=== PATIENT | female | born 1950 | race Caucasian/White ===

== ENCOUNTER → 2017-08-24 16:52 | Outpatient (CLI) | payer BC, SELFPAY ==
--- NOTE | 2017-08-24 16:58 | RAD_ITS ---
STUDY: X-RAY CHEST REASON FOR EXAM: Female, 66 years old. Fever and cough. Evaluate for pneumonia. TECHNIQUE: Frontal and lateral views of the chest. COMPARISON: April 15, 2017 FINDINGS: A left internal jugular catheter is stable with the tip projected into the mid SVC. The lungs are markedly hyperexpanded compatible with COPD, and unchanged. There is linear scarring with retraction in both apices unchanged. There is no demonstrated pleural abnormality. Normal size heart. Normal mediastinum and magda. Normal visualized pulmonary arteries. Normal visualized aortic arch and descending thoracic aorta. Normal visualized thoracic spine. Normal visualized ribs, clavicles, and shoulders. There is no demonstrated abnormality of the visualized soft tissue structures of the upper abdomen. RAD/Chest PA and Lateral IMPRESSION: Stable findings of COPD with no new or acute pathology. Electronically Signed: Compa Cunha MD at 17:53 EST , Service support ,
== END ==
PROVIDERS: Family Provider Family Medicine; PCP Family Medicine; Visit Provider Family Medicine
DX: J18.9 Pneumonia, unspecified organism (principal); J44.1 Chronic obstructive pulmonary disease with (acute) exacerbation; R09.02 Hypoxemia
CPT/HCPCS: 71046

== ENCOUNTER 2017-11-15 08:11 | Inpatient (IN) | payer BC, SELFPAY ==
[2017-11-15] VITALS (17 sets, daily range): BP systolic 97–137; BP diastolic 53–86; PULSE 67–105; RESP 13–25; TEMP 36.6–36.7; O2SAT 93–100; BMI 16.2; BMI 14.7; BMI 14.6
--- NOTE | 2017-11-15 08:19 | RAD_ITS ---
STUDY: X-RAY CHEST REASON FOR EXAM: Female, 67 years old. Shortness of breath, cough, history of COPD. TECHNIQUE: Single AP portable view of the chest. Patient is mildly rotated. COMPARISON: 08/24/2017 FINDINGS: Left internal jugular catheter is stable with the tip in the mid SVC. There is hyperinflation of the lungs consistent with chronic obstructive lung disease (COPD). There is a large size left pneumothorax demonstrated with volume loss of underlying left lung. There is no pleural effusion. Normal size heart. Normal mediastinum and magda. Normal visualized pulmonary arteries. Normal visualized aortic arch and descending thoracic aorta. There is demineralization of the osseous structures. There is no acute abnormality of the visualized ribs, clavicles, and shoulders. There is no demonstrated abnormality of the visualized soft tissue structures of the upper abdomen. RAD/Chest 1 View (Portable) IMPRESSION: 1. Large-size left pneumothorax demonstrated with minimal shift of mediastinum to the right side, likely an early tension pneumothorax. 2. COPD changes. N.B. : The above information has been verbally conveyed by Guerda Britton MD to Katlin Hsu on 11/15/2017 09:12:54 (ET). Electronically Signed: Guerda Britton MD at 9:14 EDT Tel , Service support , N.B. : The above information has been verbally conveyed by Guerda Britton MD to Katlin Hsu on 11/15/2017 09:12:54 (ET).
--- NOTE | 2017-11-15 08:19 | EKG12_ITS ---
Test Reason : SOB Blood Pressure : / mmHG Vent. Rate : 070 BPM Atrial Rate : 070 BPM P-R Int : 144 ms QRS Dur : 080 ms QT Int : 396 ms P-R-T Axes : 079 077 075 degrees QTc Int : 427 ms Normal sinus rhythm with sinus arrhythmia Poor R wave progression Nonspecific T wave abnormality Confirmed by BENNY ELIAS, NIA ([id number]), video tape editor JEANNE VALDEZ ([id number]) on 11/18/2017 2:42:29 PM Referred By: Deshawn Torrez Confirmed By:NIA ZAPATA MD
[2017-11-15] MEDS: Albuterol 2.5 MG/3 ML VIAL.NEB. INHALATION ×2 (08:23)
[2017-11-15] MEDS: Ipratropium/Albuterol Sulfate 3 ML AMPUL.NEB INHALATION ×3 (08:23→19:57)
--- NOTE | 2017-11-15 08:23 | ED.VISSUMM ---
- ER Visit Summary Date of Service: 11/15/17 Chief Complaint: Shortness of breath and cough History of Present Illness: The patient is a 67 F with a history of COPD. She is not on home oxygen but does use nebulizer. Patient reports increasing shortness of breath with moist cough since yesterday. She believes her shortness of breath was worsened by the warm, humid weather. Patient states last evening she had pain to her left shoulder and arm but denies pain currently. She has not noted fever. Physical Examination: Blood pressure is 130/80, temperature 98, heart rate 99, respiratory rate 20, pulse ox 93% on room air. Patient sitting upright in bed. She is in no distress and speaking full sentences, but does appear uncomfortable. Heart is regular rate and rhythm. Lung sounds are diminished throughout. Abdomen is soft nontender. Lower exam examination reveals no calf tenderness or edema. Test Results: EKG is sinus at 70 with no sign of acute ischemia. CBC and chemistry studies normal. Troponin is less than 0.015. Portable chest x-ray reveals left-sided pneumothorax with early tension. Emergency Department Course and Treatment: Patient was given Solu-Medrol 80 mg IV along with aerosols. As soon as x-ray was visualized by myself patient was consented for left-sided chest tube placement and procedural sedation. 2 cc 1% lidocaine were infused to the left chest wall. A pneumo dart was placed without difficulty. Was secured in place. Vital signs remained stable throughout. She did not require any IV sedation. Repeat chest x-ray reviewed by myself at bedside reveals resolution of pneumothorax. Patient was discussed with Dr. Berry as well as Dr. Thomas. Treatment Plan: [] Disposition: Admit Impression: Left pneumothorax status post pneumo dart placement This note was generated with [employer] dictation software. It may contain incorrect words, spelling, and punctuation that were not noted in review of the chart prior to signing ED Disposition - Plan for ED Patient: Chief Complaint: Shortness of Breath Referrals: Deshawn Torrez MD [Primary Care Provider] -
[2017-11-15] MEDS: MethylPREDNISolone 125 MG/2 ML Vial 80 MG IV (08:41)
[2017-11-15 08:42] LABS: Absolute Lymphocyte Count 2.18 X10^3/ul (0.83-4.51); Absolute Neutrophil Count 5.6 X10^3/uL (2.0-7.7); Basophil# 0.07 X10^3/uL; Basophil% 0.8 % (0-1); Eosinophil# 0.12 X10^3/uL; Eosinophils% 1.4 % (0-5); Hematocrit 43.8 % (37-47); Hemoglobin 14.2 g/dl (12.0-15.0); Lymphocyte # 2.18 X10^3/ul (4.0); Lymphocyte % 25.9 % (19-41); Mean Corp Hgb Conc 32.4 g/gl (32-36); Mean Corpuscular Hgb 29.8 pg (27.0-32.0); Mean Platelet Vol. 9.1 fl (6.2-12.0); Monocyte# 0.39 X10^3/uL; Monocyte% 4.6 % (0-10); Neutrophil # 5.64 X10^3/uL (2.7-7.7); Neutrophil % 67.2 % (47-70); Platelet Count 217 K/mm3 (150-450); RBC Distribution Width CV 13.7 % (11.6-14.6); RBC Distribution Width SD 45.9 fl (35.1-43.9); Red Blood Count 4.76 M/mm3 (4.2-5.4); White Blood Count 8.4 K/mm3 (4.4-11.0)
[2017-11-15 08:48] LABS: POSITIVE COUNT NO; POSITIVE DIFFERENTIAL NO; POSITIVE MORPHOLOGY NO
[2017-11-15 09:00] LABS: Anion Gap 4 (5-15); BUN 17 mg/dL (7-18); BUN/Creat Ratio 19.9 RATIO (10-20); Calcium,Total 9.2 mg/dL (8.5-10.1); Chloride 104 mmol/L (98-107); Creatinine, Serum 0.86 mg/dL (0.55-1.02); EST Glomerular Filtration Rate 71 mL/min (>60); Est Glom Filt Rate - Afr Amer 86 mL/min (>60); Estimated Creatinine Clearance 44.36 ml/min; Glucose 110 mg/dL (74-106); Potassium 4.1 mmol/L (3.5-5.1); Sodium Level 138 mmol/L (136-145)
--- NOTE | 2017-11-15 09:27 | ED.RN ---
LIDOCAINE INJECTED INTO SITE BY DR HAQ
--- NOTE | 2017-11-15 09:33 | ED.RN ---
CHEST TUBE INSERTED
--- NOTE | 2017-11-15 09:34 | RAD_ITS ---
STUDY: X-RAY CHEST REASON FOR EXAM: Female, 67 years old. Chest tube placement TECHNIQUE: Single AP portable view of the chest. COMPARISON: November 15, 2017 chest x-ray FINDINGS: There is a left-sided Port-A-Cath tip is in the superior vena cava. The lungs are hyperinflated. Small caliber left-sided chest tube is present. The left-sided pneumothorax since decreased. There is a subtle rim of hyperlucency along the cardiac border and left lower chest. Normal size heart. Normal mediastinum and magda. Normal visualized pulmonary arteries. Normal visualized aortic arch and descending thoracic aorta. Normal visualized thoracic spine. Normal visualized ribs, clavicles, and shoulders. There is no demonstrated abnormality of the visualized soft tissue structures of the upper abdomen. RAD/Chest 1 View (Portable) IMPRESSION: Status post left-sided chest tube placement trace remaining pneumothorax. Hyperinflation of the lungs. Left-sided Port-A-Cath stable since prior study. Electronically Signed: Lulu Hines MD at 10:18 EDT Tel , Service support ,
[2017-11-15] MEDS: fentaNYL 100 MCG/2 ML Ampul 6.25 MCG IV (09:44)
--- NOTE | 2017-11-15 09:55 | ED.RN ---
PROPOFOL NOT GIVEN. CONSCIOUS SEDATION NOT COMPLETED. PT TOLERATED PROCEDURE WELL
--- NOTE | 2017-11-15 10:54 | PCM.CONS.GEN ---
Reason for Consult Date of Consultation: 11/15/17 History of Present Illness: The patient is a 67 year old F who coughed and had the onset of left-sided pleuritic chest pain and a degree of shortness of breath. The patient is a long-standing history of tobacco abuse, smoking at least one half packs of cigarettes per day for many years. She presented to [facility] emergency department. Chest x-ray demonstrated a significant left-sided pneumothorax with what appeared to be a degree of mediastinal shift. Dr. Vivas- [facility] emergency room physician placed a left pneumocath. post procedure chest x-ray demonstrated good reexpansion of the lung. The catheter is affixed to a Pleur-evac at 20 cm, negative water pressure and has no leak currently. The patient's chest x-ray demonstrates hyperexpansion consistent with advanced COPD. patient has a previous history of right-sided breast cancer. She underwent bilateral mastectomies last December. She is doing well from that procedure. She also notes a distant history of bowel obstructions. She denies any current medications of notes no allergies to medications. Past Medical History Past Medical History (Chronic Problems): Chronic Problems (Last Reviewed 08/19/17 @ 08:59 by Elena Seth) Floaters (Chronic) Breast cancer, right breast (Chronic) Allergies No Known Allergies Allergy (Verified 11/15/17 08:13) Home Medications: Ambulatory Orders Medication Instructions Recorded Albuterol IH (ProAir) [Proair Hfa] 1 puff INHALATION Q4H PRN PRN #1 04/15/17 inhaler Surgical History: - - mastectomy-questionable lysis of abdominal adhesions? Smoking Status: Current every day smoker - *Family History Maternal History Items: Hypertension Review of Systems Constitutional: Denies: Chills, Fever, Weight Change HEENT: Denies: Head Aches, Sinus Congestion, Sinus Drainage Cardiovascular: Reports: Chest Pain. Denies: Palpitations Respiratory: Reports: Shortness of Breath. Denies: Cough, Shortness of breath at rest, Sputum production Gastrointestinal: Denies: Abdominal Pain, Nausea, Vomiting Genitourinary: Denies: Dysuria Musculoskeletal: Denies: Joint Pain, Joint Tenderness Skin: Denies: Rash, Wounds Neurological: Denies: Numbness, Tingling, Focal weakness Psychiatric: Denies: Anxiety, Depression, Homicidal Ideations, Suicidal Ideations Hematologic/ Lymphatic: Denies: Easy Bruising, Easy Bleeding - Physical Exam General: Alert, Oriented x3, Cooperative Lungs: Clear to auscultation, Normal air movement, Diminished, - - left chest tube/pleural catheter dressing in place with a scant amount of bloody fluid in the tube. No air leak noted in chest tube Cardiovascular: Regular rate, Regular Rhythm Vital Signs Temp Pulse Resp BP Pulse Ox 98 F 72 19 H 118/68 98 11/15/17 08:11 11/15/17 10:08 11/15/17 10:08 11/15/17 10:08 11/15/17 10:08 Oxygen Flow Rate (L/min) 3 Oxygen Delivery Method Nasal Cannula Assessment/Plan - 4. Chronic tobacco use, COPD, spontaneous pneumothorax-continue with pneumocath. Recommend the pneumocath be maintained on 20 cm negative suction overnight and then placed on waterseal at approximately 3 AM. Have follow-up chest x-ray obtained at 6 AM. If the lung remains completely expanded and would plan to remove the pneumocath that time. Discussed with the patient the need for smoking cessation.
--- NOTE | 2017-11-15 10:58 | CON.PCM_ITS ---
Reason for Consult Date of Consultation: 11/15/17 History of Present Illness: The patient is a 67 year old F who coughed and had the onset of left-sided pleuritic chest pain and a degree of shortness of breath. The patient is a long -standing history of tobacco abuse, smoking at least one half packs of cigarettes per day for many years. She presented to [facility] emergency department. Chest x-ray demonstrated a significant left-sided pneumothorax with what appeared to be a degree of mediastinal shift. Dr. Vivas - [facility] emergency room physician placed a left pneumocath. post procedure chest x-ray demonstrated good reexpansion of the lung. The catheter is affixed to a Pleur-evac at 20 cm, negative water pressure and has no leak currently. The patient's chest x-ray demonstrates hyperexpansion consistent with advanced COPD. patient has a previous history of right-sided breast cancer. She underwent bilateral mastectomies last December. She is doing well from that procedure. She also notes a distant history of bowel obstructions. She denies any current medications of notes no allergies to medications. Past Medical History Past Medical History (Chronic Problems): Chronic Problems (Last Reviewed 08/19/17 @ 08:59 by Elena Seth) Floaters (Chronic) Breast cancer, right breast (Chronic) Allergies No Known Allergies Allergy (Verified 11/15/17 08:13) Home Medications: Ambulatory Orders Medication Instructions Recorded Albuterol IH (ProAir) [Proair Hfa] 1 puff INHALATION Q4H PRN PRN #1 04/15/17 inhaler Surgical History: - - mastectomy-questionable lysis of abdominal adhesions? Smoking Status: Current every day smoker - *Family History Maternal History Items: Hypertension Review of Systems Constitutional: Denies: Chills, Fever, Weight Change HEENT: Denies: Head Aches, Sinus Congestion, Sinus Drainage Cardiovascular: Reports: Chest Pain. Denies: Palpitations Respiratory: Reports: Shortness of Breath. Denies: Cough, Shortness of breath at rest, Sputum production Gastrointestinal: Denies: Abdominal Pain, Nausea, Vomiting Genitourinary: Denies: Dysuria Musculoskeletal: Denies: Joint Pain, Joint Tenderness Skin: Denies: Rash, Wounds Neurological: Denies: Numbness, Tingling, Focal weakness Psychiatric: Denies: Anxiety, Depression, Homicidal Ideations, Suicidal Ideations Hematologic/ Lymphatic: Denies: Easy Bruising, Easy Bleeding - Physical Exam General: Alert, Oriented x3, Cooperative Lungs: Clear to auscultation, Normal air movement, Diminished, - - left chest tube/pleural catheter dressing in place with a scant amount of bloody fluid in the tube. No air leak noted in chest tube Cardiovascular: Regular rate, Regular Rhythm Vital Signs Temp Pulse Resp BP Pulse Ox 98 F 72 19 H 118/68 98 11/15/17 08:11 11/15/17 10:08 11/15/17 10:08 11/15/17 10:08 11/15/17 10:08 Oxygen Flow Rate (L/min) 3 Oxygen Delivery Method Nasal Cannula Assessment/Plan - 4. Chronic tobacco use, COPD, spontaneous pneumothorax-continue with pneumocath. Recommend the pneumocath be maintained on 20 cm negative suction overnight and then placed on waterseal at approximately 3 AM. Have follow-up chest x-ray obtained at 6 AM. If the lung remains completely expanded and would plan to remove the pneumocath that time. Discussed with the patient the need for smoking cessation.
--- NOTE | 2017-11-15 11:19 | HP.PCM_ITS ---
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 Patient states she has COPD and has chronic shortness of breath and cough. She states this increased in severity last night and states she cannot catch her breath. She states cough is occasionally productive of clear sputum. Denies fever, chills. Denies wheezing. She does not follow with a certified orthotist and is unaware if she is ever had pulmonary function testing. She uses a nebulizer with albuterol aerosols for shortness of breath. Not on any other inhaler regimen. She is a 2 pack per day smoker. Patient was found to have spontaneous pneumothorax and chest tube was placed in the ER. She notes significant improvement of shortness of breath after placement of chest tube. Complains of left-sided chest pain at chest tube insertion site. Patient's past medical history includes tobacco dependence, chronic COPD, history of right breast cancer status post chemotherapy and bilateral mastectomy, vitreous detachment, osteoporosis, severe protein calorie malnutrition, history of postmenopausal bleeding status post D&C. Past Medical History Past Medical History (Chronic Problems): Chronic Problems (Last Reviewed 08/19/17 @ 08:59 by Elena Seth) Tobacco dependence (Chronic) Osteoporosis (Chronic) COPD (chronic obstructive pulmonary disease) (Chronic) Peripheral neuropathy due to chemotherapy (Chronic) Floaters (Chronic) Allergies No Known Allergies Allergy (Verified 11/15/17 08:13) Home Medications: Ambulatory Orders Medication Instructions Recorded Albuterol IH (ProAir) [Proair Hfa] 1 puff INHALATION Q4H PRN PRN #1 04/15/17 inhaler Surgical History: - - Bilateral mastectomy 2017, exploratory laparotomy ?2. Psychiatric History: No pertinent psych hx Lives: Spouse/ Significant Other Smoking Status: Current every day smoker Tobacco Use: Cigarettes - 2 packs per day Alcohol: Rare Drugs: None - *Family History Maternal History Items: Hypertension Paternal History Items: No pertinent history Review of Systems Constitutional: Reports: Weight Change - Chronic weight loss with poor appetite.. Denies: Chills, Fever HEENT: Reports: Visual Changes - Chronic floaters right eye.. Denies: Head Aches, Sinus Congestion, Sinus Drainage Cardiovascular: Reports: Chest Pain - Left-sided rib area. Denies: Edema, Light Headedness, Palpitations, Syncope Respiratory: Reports: Cough, Shortness of Breath, Sputum production - Clear. Denies: Wheezing Gastrointestinal: Denies: Abdominal Pain, Nausea, Vomiting Genitourinary: Denies: Dysuria Musculoskeletal: Denies: Joint Pain, Joint Tenderness Skin: Denies: Rash, Wounds Neurological: Denies: Numbness, Tingling, Focal weakness Psychiatric: Denies: Anxiety, Depression, Homicidal Ideations, Suicidal Ideations Hematologic/ Lymphatic: Denies: Easy Bruising, Easy Bleeding VTE Information - Inpt Only VTE Present on Admission: No VTE Mechan Device Prophylaxis: SCD's VTE Pharm Prophylaxis ordered?: No Reason prophylaxis not ordered:: Medical Contraindication Patient Problems: Active and Suspected Problems (Last Reviewed 08/19/17 @ 08:59 by Elena Seth) Spontaneous pneumothorax (Acute) - Physical Exam General: Alert, Oriented x3, Cooperative, No apparent distress, - - Cachectic HEENT: Atraumatic, PERRLA, EOMI, Normocephalic Neck: Supple, No JVD, Negative Carotid Bruits Lungs: Clear to auscultation, Diminished Cardiovascular: Regular rate, Regular Rhythm, Normal S1, Normal S2, No murmurs Abdomen: Bowel Sounds Present, Soft, Non Tender, Non-Distended Extremities: No clubbing, No cyanosis, No edema, Capillary Refill Less than 3 Seconds Skin: No rashes, No breakdown Musculoskeletal: No Tenderness to Palpation of Joints or Extremities Neurological: Cranial nerves II-XII grossly intact, Neuro grossly intact Psych/Mental Status: Normal Affect, Appropriate Vital Signs Temp Pulse Resp BP Pulse Ox 98 F 72 19 H 118/68 98 11/15/17 08:11 11/15/17 10:08 11/15/17 10:08 11/15/17 10:08 11/15/17 10:08 Oxygen Flow Rate (L/min) 3 Oxygen Delivery Method Nasal Cannula Assessment/Plan Active and Suspected Problems (Last Reviewed 08/19/17 @ 08:59 by Elena Seth) Spontaneous pneumothorax (Acute) 1. Spontaneous pneumothorax-pneumocath placed in the ER. Dr. Berry consulted. Continue pneumocath on 20 cm negative suction overnight. Patient to be placed on waterseal at 3 AM. Repeat chest x-ray at 6 AM. Possible removal of pneumocath if stable at that time. As needed pain regimen. Continue supplemental oxygen to maintain O2 at or above 90%. 2. Chronic COPD-no acute exacerbation. Albuterol and DuoNeb aerosols. Patient does not follow with pulmonary. She has a long smoking history and is a current 2 pack per day smoker. Complains of chronic shortness of breath and cough. Patient will need set up with outpatient follow-up with pulmonary medicine. Recommend pulmonary function testing as outpatient. She currently has a nebulizer and albuterol aerosols. She will need walking pulse ox prior to discharge. 3. Tobacco dependence-encourage smoking cessation. Nicotine replacement patch. 4. History of right breast cancer-s/p chemo and bilateral mastectomy. Chemotherapy completed 04/23/17. Follows with Dr. Park. 5. Vitreous detachment, floaters right eye-secondary to chemotherapy. Follows with ophthalmology. 6. History of postmenopausal bleeding-transvaginal ultrasound 03/13/2017 showed 3 mm endometrial polyp, fluid-filled endometrial cavity, uterine fibroid and complex left ovarian cyst. Status post D&C hysteroscopy 06/11/2017. 7. Osteoporosis-previously on Flomax which was discontinued by primary care physician. Begin calcium, vitamin D supplementation. 8. Severe protein calorie malnutrition-BMI 16.3. Nutrition consult. DVT prophylaxis-SCDs This patient was seen by LARRY Dowling under the supervision of Dr. Thomas.
[2017-11-15 11:32] LABS: Magnesium 1.9 mg/dL (1.6-2.6)
[2017-11-15] MEDS: HYDROcodone Bitartrate/Apap 5/325 Tablet PO ×3 (11:43→23:01)
[2017-11-15] MEDS: Calcium Carb/Vitamin D 1 TABLET Tablet PO (17:54)
[2017-11-15] MEDS: Famotidine 20 MG Tablet PO (21:03)
[2017-11-16] VITALS (18 sets, daily range): BP systolic 106–119; BP diastolic 60–69; PULSE 77–90; RESP 16–19; TEMP 36.5–36.8; O2SAT 88–99
[2017-11-16] MEDS: Ipratropium/Albuterol Sulfate 3 ML AMPUL.NEB INHALATION ×4 (01:12→19:08)
--- NOTE | 2017-11-16 03:00 | NURSING ---
Chest tube was maintained on 20 cm negative suction throughout the night. At this time, chest tube was placed on waterseal. Patient tolerating well.
--- NOTE | 2017-11-16 03:33 | NURSING ---
0600 CXR was done by X-ray at this time. Notified X-ray that the CXR will need to be re-done at 0600 due to making changes to the chest tube.
--- NOTE | 2017-11-16 06:03 | RAD_ITS ---
STUDY: X-RAY CHEST REASON FOR EXAM: Female, 67 years old. Pneumothorax TECHNIQUE: Single AP portable view of the chest. COMPARISON: 11/15/2017 FINDINGS: Implanted left central catheter seen. A thin bore chest tube projects along the left lateral chest wall. The lungs are hyperinflated. A small left anterior pneumothorax is suspected, with redemonstration of a sharp left cardiac margin. Normal size heart. Normal mediastinum and magda. Normal visualized pulmonary arteries. Normal visualized aortic arch and descending thoracic aorta. Normal visualized thoracic spine. Normal visualized ribs, clavicles, and shoulders. There is no demonstrated abnormality of the visualized soft tissue structures of the upper abdomen. RAD/Chest 1 View (Portable) IMPRESSION: There may be a small residual left anterior pneumothorax. No discrete pleural line is seen. No change to the life support tubes and catheters. Electronically Signed: Maulik Orlando DO at 8:48 EDT Tel , Service support ,
[2017-11-16 06:11] LABS: Hematocrit 38.8 % (37-47); Hemoglobin 12.2 g/dl (12.0-15.0); Mean Corp Hgb Conc 31.4 g/gl (32-36); Mean Corpuscular Hgb 29.1 pg (27.0-32.0); Mean Corpuscular Volume 92.6 fL (81-99); Mean Platelet Vol. 9.3 fl (6.2-12.0); Platelet Count 207 K/mm3 (150-450); RBC Distribution Width CV 14.1 % (11.6-14.6); RBC Distribution Width SD 47.6 fl (35.1-43.9); Red Blood Count 4.19 M/mm3 (4.2-5.4); White Blood Count 10.5 K/mm3 (4.4-11.0)
[2017-11-16 06:17] LABS: Scan Indicated on CBC? Y/N NO
[2017-11-16 06:31] LABS: Anion Gap 7 (5-15); BUN 21 mg/dL (7-18); BUN/Creat Ratio 35.6 RATIO (10-20); Chloride 105 mmol/L (98-107); Creatinine, Serum 0.59 mg/dL (0.55-1.02); EST Glomerular Filtration Rate 109 mL/min (>60); Est Glom Filt Rate - Afr Amer 132 mL/min (>60); Estimated Creatinine Clearance 58.23 ml/min; Glucose 109 mg/dL (74-106); Potassium 4.1 mmol/L (3.5-5.1); Sodium Level 141 mmol/L (136-145)
--- NOTE | 2017-11-16 09:34 | PCM.PN.SRG ---
Patient Problems: Active and Suspected Problems (Last Reviewed 08/19/17 @ 08:59 by Elena Seth) Spontaneous pneumothorax (Acute) Subjective: no complaints - Physical Exam General: Alert, Oriented x3 Lungs: Normal air movement, Rhonchi, - - chest tube in place, Pleur-evac has no negative intrathoracic pressure on waterseal and there is a slight air leak with bubbling when patient coughs. Pleur-evac reattached to 20 cm water suction with initial air leak and then none noted Cardiovascular: Regular rate, Regular Rhythm Vital Signs Temp Pulse Resp BP Pulse Ox 98.2 F 87 19 H 117/63 96 11/16/17 09:27 11/16/17 09:27 11/16/17 09:27 11/16/17 09:27 11/16/17 09:27 Oxygen Flow Rate (L/min) 1 Oxygen Delivery Method Nasal Cannula Weight: 38.8 kg Body Mass Index (BMI) 14.6 Intake and Output for Last 24 Hours 11/14/17 11/15/17 11/16/17 23:59 23:59 23:59 Intake Total 600 / 600 120 / 120 Balance 600 / 600 120 / 120 Laboratory Tests Past 24 Hrs 11/16/17 11/16/17 05:35 05:35 WBC 10.5 RBC 4.19 L Hgb 12.2 Hct 38.8 MCV 92.6 MCH 29.1 MCHC 31.4 L RDW 14.1 RDW Differential 47.6 H Plt Count 207 MPV 9.3 Sodium 141 Potassium 4.1 Chloride 105 Carbon Dioxide 29.0 Anion Gap 7 BUN 21 H Creatinine 0.59 Estim Creat Clear Calc 58.23 Est GFR (MDRD) Af Amer 132 Est GFR (MDRD) Non-Af 109 BUN/Creatinine Ratio 35.6 H Glucose 109 H Calcium 9.0 Medical Necessity - Tobacco Use Smoking Status: Current every day smoker Tobacco Use: Cigarettes Assessment/Plan Active and Suspected Problems (Last Reviewed 08/19/17 @ 08:59 by Elena Seth) Spontaneous pneumothorax (Acute) - 4. Chronic tobacco use, COPD, spontaneous pneumothorax-continue with pneumocath. chest x-ray appears completely expanded. This morning, but there is small air leak when patient coughs. Patient replaced to 20 cm water seal Recommend the pneumocath be maintained on 20 cm negative suction overnight and then placed on waterseal at approximately 3 AM. Have follow-up chest x-ray obtained at 6 AM. If the lung remains completely expanded and would plan to remove the pneumocath that time. Discussed with the patient the need for smoking cessation.
[2017-11-16] MEDS: HYDROcodone Bitartrate/Apap 5/325 Tablet PO (09:35)
[2017-11-16] MEDS: Multivitamins,Ther W-Minerals Tablet 1 TABLET PO (09:35)
[2017-11-16] MEDS: Calcium Carb/Vitamin D 1 TABLET Tablet PO ×2 (09:36→17:50)
[2017-11-16] MEDS: Famotidine 20 MG Tablet PO ×2 (09:36→21:15)
--- NOTE | 2017-11-16 13:17 | PCM.PN.HOSP ---
Patient Problems: Active and Suspected Problems (Last Reviewed 08/19/17 @ 08:59 by Elena Seth) Spontaneous pneumothorax (Acute) Subjective: breathing well. no new complaints. Vitals/I&O's: Vital Signs Temp Pulse Resp BP Pulse Ox 36.8 C 80 16 117/63 96 11/16/17 09:27 11/16/17 13:13 11/16/17 13:13 11/16/17 09:27 11/16/17 09:27 Oxygen Flow Rate (L/min) 1 Oxygen Delivery Method Nasal Cannula Weight: 38.8 kg Body Mass Index (BMI) 14.6 Intake and Output for Last 24 Hours 11/14/17 11/15/17 11/16/17 23:59 23:59 23:59 Intake Total 600 / 600 120 / 120 Balance 600 / 600 120 / 120 General: Alert, Cooperative, No apparent distress HEENT: Atraumatic, Normocephalic Lungs: Clear to auscultation, Diminished Cardiovascular: Regular rate, Regular Rhythm, Normal S1, Normal S2, No murmurs Abdomen: Bowel Sounds Present, Soft, Non Tender, Non-Distended, No Hepato-splenomegaly Extremities: No edema, No Calf Tenderness Psych/Mental Status: Normal Affect, Appropriate Laboratory Results 11/16/17 05:35: WBC 10.5, RBC 4.19 L, Hgb 12.2, Hct 38.8, MCV 92.6, MCH 29.1, MCHC 31.4 L, RDW 14.1, RDW Differential 47.6 H, Plt Count 207, MPV 9.3 11/16/17 05:35: Sodium 141, Potassium 4.1, Chloride 105, Carbon Dioxide 29.0, Anion Gap 7, BUN 21 H, Creatinine 0.59, Estim Creat Clear Calc 58.23, Est GFR (MDRD) Af Amer 132, Est GFR (MDRD) Non-Af 109, BUN/Creatinine Ratio 35.6 H, Glucose 109 H, Calcium 9.0 Current Medications Acetaminophen (Tylenol) 650 mg PO Q6H PRN PRN PRN Reason: Non-cardiac pain (mod-severe) Hydrocodone Bitart/Acetaminophen ([place] 5mg-325mg) 1 - 2 tablet PO Q6H PRN PRN PRN Reason: Moderate-severe pain Last Admin: 11/16/17 09:35 Dose: 1 tablet Albuterol Sulfate (Ventolin Aerosols) 2.5 mg INHALATION Q2H PRN PRN PRN Reason: dyspnea, wheezing Albuterol/Ipratropium (Duoneb) 3 ml INHALATION Q6HWA.RT [facility] Last Admin: 11/16/17 13:13 Dose: 3 ml Calcium/Vitamin D (Os-Zane 500mg + D) 1 tablet PO BIDCM [facility] Last Admin: 11/16/17 09:36 Dose: 1 tablet Famotidine (Pepcid) 20 mg PO BID [facility] Last Admin: 11/16/17 09:36 Dose: 20 mg Hydralazine HCl (Apresoline Iv) 10 mg IV Q4H PRN PRN PRN Reason: SBP > 160 Magnesium Hydroxide (Milk Of Magnesia) 30 ml PO DAILY PRN PRN Reason: Constipation Morphine Sulfate () 1 - 2 mg IV Q4H PRN PRN PRN Reason: PAIN Multivitamins/Minerals (Multivitamin With Minerals) [facility] Last Admin: 11/16/17 09:35 Dose: 1 tablet Nicotine (Nicoderm Cq (Pbkc)) 21 mg TRANSDERM. DAILY [facility] Last Admin: 11/16/17 09:35 Dose: 21 mg Nutritional Formula (Lactose Free) (Ensure Enlive) 120 ml PO 4X/DAY [facility] Last Admin: 11/16/17 09:35 Dose: 120 ml Ondansetron HCl (Zofran) 4 mg IV Q8H PRN PRN PRN Reason: NAUSEA/VOMITING Sodium Chloride () 5 - 30 ml IV UD PRN PRN Reason: SALINE FLUSH Temazepam (Restoril) 15 mg PO QHS PRN PRN PRN Reason: insomnia Medical Necessity - Tobacco Use Smoking Status: Current every day smoker Tobacco Use: Cigarettes Assessment/Plan Active and Suspected Problems (Last Reviewed 08/19/17 @ 08:59 by Elena Seth) Spontaneous pneumothorax (Acute) 1. spontaneous PTX s/p chest tube DW Dr. Sheikh, still with air leak. Plan is to monitor overnight and recheck CXR in AM 2. DVT proph: SCDs 3. Tobacco cessation: spent an additional 11 minutes discussing with the patient about tobacco cessation. Pt has been smoking for 40+ years. Has tried patches, wellbutrin, Chantix without any success. Recommend pt d/w her (who also smokes) and decide on a stop date for them both simultaneously. Code Visit Inpatient E&M: 33083 Subs Hosp L2 Procedures: Other Procedure - See Report - [id number]
--- NOTE | 2017-11-16 13:25 | PN_ITS ---
Patient Problems: Active and Suspected Problems (Last Reviewed 08/19/17 @ 08:59 by Elena Seth) Spontaneous pneumothorax (Acute) Subjective: breathing well. no new complaints. Vitals/I&O's: Vital Signs Temp Pulse Resp BP Pulse Ox 36.8 C 80 16 117/63 96 11/16/17 09:27 11/16/17 13:13 11/16/17 13:13 11/16/17 09:27 11/16/17 09:27 Oxygen Flow Rate (L/min) 1 Oxygen Delivery Method Nasal Cannula Weight: 38.8 kg Body Mass Index (BMI) 14.6 Intake and Output for Last 24 Hours 11/14/17 11/15/17 11/16/17 23:59 23:59 23:59 Intake Total 600 / 600 120 / 120 Balance 600 / 600 120 / 120 General: Alert, Cooperative, No apparent distress HEENT: Atraumatic, Normocephalic Lungs: Clear to auscultation, Diminished Cardiovascular: Regular rate, Regular Rhythm, Normal S1, Normal S2, No murmurs Abdomen: Bowel Sounds Present, Soft, Non Tender, Non-Distended, No Hepato- splenomegaly Extremities: No edema, No Calf Tenderness Psych/Mental Status: Normal Affect, Appropriate Laboratory Results 11/16/17 05:35: WBC 10.5, RBC 4.19 L, Hgb 12.2, Hct 38.8, MCV 92.6, MCH 29.1, MCHC 31.4 L, RDW 14.1, RDW Differential 47.6 H, Plt Count 207, MPV 9.3 11/16/17 05:35: Sodium 141, Potassium 4.1, Chloride 105, Carbon Dioxide 29.0, Anion Gap 7, BUN 21 H, Creatinine 0.59, Estim Creat Clear Calc 58.23, Est GFR ( MDRD) Af Amer 132, Est GFR (MDRD) Non-Af 109, BUN/Creatinine Ratio 35.6 H, Glucose 109 H, Calcium 9.0 Current Medications Acetaminophen (Tylenol) 650 mg PO Q6H PRN PRN PRN Reason: Non-cardiac pain (mod-severe) Hydrocodone Bitart/Acetaminophen ([place] 5mg-325mg) 1 - 2 tablet PO Q6H PRN PRN PRN Reason: Moderate-severe pain Last Admin: 11/16/17 09:35 Dose: 1 tablet Albuterol Sulfate (Ventolin Aerosols) 2.5 mg INHALATION Q2H PRN PRN PRN Reason: dyspnea, wheezing Albuterol/Ipratropium (Duoneb) 3 ml INHALATION Q6HWA.RT [facility] Last Admin: 11/16/17 13:13 Dose: 3 ml Calcium/Vitamin D (Os-Zane 500mg + D) 1 tablet PO BIDCM [facility] Last Admin: 11/16/17 09:36 Dose: 1 tablet Famotidine (Pepcid) 20 mg PO BID [facility] Last Admin: 11/16/17 09:36 Dose: 20 mg Hydralazine HCl (Apresoline Iv) 10 mg IV Q4H PRN PRN PRN Reason: SBP > 160 Magnesium Hydroxide (Milk Of Magnesia) 30 ml PO DAILY PRN PRN Reason: Constipation Morphine Sulfate () 1 - 2 mg IV Q4H PRN PRN PRN Reason: PAIN Multivitamins/Minerals (Multivitamin With Minerals) [facility] Last Admin: 11/16/17 09:35 Dose: 1 tablet Nicotine (Nicoderm Cq (Pbkc)) 21 mg TRANSDERM. DAILY [facility] Last Admin: 11/16/17 09:35 Dose: 21 mg Nutritional Formula (Lactose Free) (Ensure Enlive) 120 ml PO 4X/DAY [facility] Last Admin: 11/16/17 09:35 Dose: 120 ml Ondansetron HCl (Zofran) 4 mg IV Q8H PRN PRN PRN Reason: NAUSEA/VOMITING Sodium Chloride () 5 - 30 ml IV UD PRN PRN Reason: SALINE FLUSH Temazepam (Restoril) 15 mg PO QHS PRN PRN PRN Reason: insomnia Medical Necessity - Tobacco Use Smoking Status: Current every day smoker Tobacco Use: Cigarettes Assessment/Plan Active and Suspected Problems (Last Reviewed 08/19/17 @ 08:59 by Elena Seth) Spontaneous pneumothorax (Acute) 1. spontaneous PTX * s/p chest tube * DW Dr. Sheikh, still with air leak. Plan is to monitor overnight and recheck CXR in AM 2. DVT proph: SCDs 3. Tobacco cessation: spent an additional 11 minutes discussing with the patient about tobacco cessation. Pt has been smoking for 40+ years. Has tried patches, wellbutrin, Chantix without any success. Recommend pt d/w her ( who also smokes) and decide on a stop date for them both simultaneously. Code Visit Inpatient E&M: 44506 Subs Hosp L2 Procedures: Other Procedure - See Report - [id number]
[2017-11-16] MEDS: Acetaminophen 325 MG Tablet 650 MG PO (14:02)
[2017-11-16] MEDS: 0.9% NaCl Peripheral Flush Adult/Peds IV (15:18)
[2017-11-16] MEDS: Ondansetron 4 MG/2 ML Vial IV (15:18)
--- NOTE | 2017-11-16 20:56 | NURSING ---
Called and requested PRN breathing tx at this time for pts increased SOB - pt feels she has a lot to cough up but nothing will come out.
[2017-11-16] MEDS: Albuterol 2.5 MG/3 ML VIAL.NEB. INHALATION (21:02)
[2017-11-17] VITALS (23 sets, daily range): BP systolic 92–129; BP diastolic 59–73; PULSE 70–116; RESP 14–20; TEMP 36.3–37.7; O2SAT 92–100
[2017-11-17] MEDS: 0.9% NaCl Peripheral Flush Adult/Peds IV (03:36)
[2017-11-17] MEDS: Morphine 4 MG/ML Syringe IV ×2 (03:36→20:38)
[2017-11-17] MEDS: Ondansetron 4 MG/2 ML Vial IV (03:37)
--- NOTE | 2017-11-17 05:00 | RAD_ITS ---
STUDY: X-RAY CHEST REASON FOR EXAM: Female, 67 years old. Left-sided pneumothorax TECHNIQUE: Single AP portable view of the chest. COMPARISON: 11/16/2017 FINDINGS: Implanted central catheter is unchanged. Thin bore left pleural chest tube is seen along the lateral left hemithorax. The lungs are hyperinflated. No convincing pneumothorax. Normal size heart. Normal mediastinum and magda. Normal visualized pulmonary arteries. Normal visualized aortic arch and descending thoracic aorta. Normal visualized thoracic spine. Normal visualized ribs, clavicles, and shoulders. There is no demonstrated abnormality of the visualized soft tissue structures of the upper abdomen. RAD/Chest 1 View (Portable) IMPRESSION: No definite residual pneumothorax. No change to the position of the left chest tube. Electronically Signed: Maulik Orlando DO at 7:56 EDT Tel , Service support ,
[2017-11-17] MEDS: Ipratropium/Albuterol Sulfate 3 ML AMPUL.NEB INHALATION ×3 (07:34→18:36)
[2017-11-17] MEDS: Famotidine 20 MG Tablet PO ×2 (08:59→21:41)
[2017-11-17] MEDS: Calcium Carb/Vitamin D 1 TABLET Tablet PO (08:59)
[2017-11-17] MEDS: Multivitamins,Ther W-Minerals Tablet 1 TABLET PO (08:59)
--- NOTE | 2017-11-17 09:12 | PCM.PN.HOSP ---
Patient Problems: Active and Suspected Problems (Last Reviewed 08/19/17 @ 08:59 by Elena Seth) Spontaneous pneumothorax (Acute) Subjective: Still coughing with some thick phlegm. Yesterday for lunch, patient ate and then had emesis afterwards. Patient only had like a bite or 2 of dinner and then felt nauseated and did not need any further. No abdominal pain this morning nor any nausea or vomiting. She has not eaten breakfast yet. No new shortness of breath. Vitals/I&O's: Vital Signs Temp Pulse Resp BP Pulse Ox 37.0 C 93 18 104/59 L 92 11/17/17 09:00 11/17/17 09:00 11/17/17 09:00 11/17/17 09:00 11/17/17 09:00 Oxygen Flow Rate (L/min) 1 Oxygen Delivery Method Nasal Cannula Weight: 38.8 kg Body Mass Index (BMI) 14.6 Intake and Output for Last 24 Hours 11/15/17 11/16/17 11/17/17 23:59 23:59 23:59 Intake Total 600 / 600 1270 / 1270 220 / 220 Balance 600 / 600 1270 / 1270 220 / 220 General: Alert, Cooperative, No apparent distress HEENT: Atraumatic, Normocephalic Neck: No Nodes, Thyroid Normal Size and Texture Lungs: Clear to auscultation, No rhonchi, No wheeze, Diminished Cardiovascular: Regular rate, Regular Rhythm, Normal S1, Normal S2, No murmurs Abdomen: Bowel Sounds Present, Soft, Non Tender, Non-Distended, No Hepato-splenomegaly Extremities: No clubbing, No cyanosis, No edema, No Calf Tenderness Skin: No rashes, No breakdown Psych/Mental Status: Normal Affect, Appropriate Current Medications Acetaminophen (Tylenol) 650 mg PO Q6H PRN PRN PRN Reason: Non-cardiac pain (mod-severe) Last Admin: 11/16/17 14:02 Dose: 650 mg Hydrocodone Bitart/Acetaminophen ([place] 5mg-325mg) 1 - 2 tablet PO Q6H PRN PRN PRN Reason: Moderate-severe pain Last Admin: 11/16/17 09:35 Dose: 1 tablet Albuterol Sulfate (Ventolin Aerosols) 2.5 mg INHALATION Q2H PRN PRN PRN Reason: dyspnea, wheezing Last Admin: 11/16/17 21:02 Dose: 2.5 mg Albuterol/Ipratropium (Duoneb) 3 ml INHALATION Q6HWA.RT [facility] Last Admin: 11/17/17 07:34 Dose: 3 ml Calcium/Vitamin D (Os-Zane 500mg + D) 1 tablet PO BIDCM [facility] Last Admin: 11/17/17 08:59 Dose: 1 tablet Famotidine (Pepcid) 20 mg PO BID [facility] Last Admin: 11/17/17 08:59 Dose: 20 mg Hydralazine HCl (Apresoline Iv) 10 mg IV Q4H PRN PRN PRN Reason: SBP > 160 Magnesium Hydroxide (Milk Of Magnesia) 30 ml PO DAILY PRN PRN Reason: Constipation Morphine Sulfate () 1 - 2 mg IV Q4H PRN PRN PRN Reason: PAIN Last Admin: 11/17/17 03:36 Dose: 2 mg Multivitamins/Minerals (Multivitamin With Minerals) [facility] Last Admin: 11/17/17 08:59 Dose: 1 tablet Nicotine (Nicoderm Cq (Pbkc)) 21 mg TRANSDERM. DAILY [facility] Last Admin: 11/17/17 09:00 Dose: 21 mg Nutritional Formula (Lactose Free) (Ensure Enlive) 120 ml PO 4X/DAY [facility] Last Admin: 11/17/17 09:00 Dose: Not Given Ondansetron HCl (Zofran) 4 mg IV Q8H PRN PRN PRN Reason: NAUSEA/VOMITING Last Admin: 11/17/17 03:37 Dose: 4 mg Sodium Chloride () 5 - 30 ml IV UD PRN PRN Reason: SALINE FLUSH Last Admin: 11/17/17 03:36 Dose: 20 ml Temazepam (Restoril) 15 mg PO QHS PRN PRN PRN Reason: insomnia Medical Necessity - Tobacco Use Smoking Status: Current every day smoker Tobacco Use: Cigarettes Assessment/Plan Active and Suspected Problems (Last Reviewed 08/19/17 @ 08:59 by Elena Seth) Spontaneous pneumothorax (Acute) 1. spontaneous PTX s/p chest tube Chest x-ray this morning was reviewed and showed no residual pneumo thorax. Per Dr. Berry to evaluate and determine when the chest tube can come out. 2. DVT proph: SCDs 3. Nausea and vomiting Transient Consider abdominal imaging as patient still has issues with this as it could indicate the patient may have an ileus or small bowel obstruction. 4. COPD Likely the source of the patient's pneumothorax We will add Mucinex to see if that can help the patient expectorate some sputum. Code Visit Inpatient E&M: 35011 Subs Hosp L2
--- NOTE | 2017-11-17 09:16 | PN_ITS ---
Patient Problems: Active and Suspected Problems (Last Reviewed 08/19/17 @ 08:59 by Elena Seth) Spontaneous pneumothorax (Acute) Subjective: Still coughing with some thick phlegm. Yesterday for lunch, patient ate and then had emesis afterwards. Patient only had like a bite or 2 of dinner and then felt nauseated and did not need any further. No abdominal pain this morning nor any nausea or vomiting. She has not eaten breakfast yet. No new shortness of breath. Vitals/I&O's: Vital Signs Temp Pulse Resp BP Pulse Ox 37.0 C 93 18 104/59 L 92 11/17/17 09:00 11/17/17 09:00 11/17/17 09:00 11/17/17 09:00 11/17/17 09:00 Oxygen Flow Rate (L/min) 1 Oxygen Delivery Method Nasal Cannula Weight: 38.8 kg Body Mass Index (BMI) 14.6 Intake and Output for Last 24 Hours 11/15/17 11/16/17 11/17/17 23:59 23:59 23:59 Intake Total 600 / 600 1270 / 1270 220 / 220 Balance 600 / 600 1270 / 1270 220 / 220 General: Alert, Cooperative, No apparent distress HEENT: Atraumatic, Normocephalic Neck: No Nodes, Thyroid Normal Size and Texture Lungs: Clear to auscultation, No rhonchi, No wheeze, Diminished Cardiovascular: Regular rate, Regular Rhythm, Normal S1, Normal S2, No murmurs Abdomen: Bowel Sounds Present, Soft, Non Tender, Non-Distended, No Hepato- splenomegaly Extremities: No clubbing, No cyanosis, No edema, No Calf Tenderness Skin: No rashes, No breakdown Psych/Mental Status: Normal Affect, Appropriate Current Medications Acetaminophen (Tylenol) 650 mg PO Q6H PRN PRN PRN Reason: Non-cardiac pain (mod-severe) Last Admin: 11/16/17 14:02 Dose: 650 mg Hydrocodone Bitart/Acetaminophen ([place] 5mg-325mg) 1 - 2 tablet PO Q6H PRN PRN PRN Reason: Moderate-severe pain Last Admin: 11/16/17 09:35 Dose: 1 tablet Albuterol Sulfate (Ventolin Aerosols) 2.5 mg INHALATION Q2H PRN PRN PRN Reason: dyspnea, wheezing Last Admin: 11/16/17 21:02 Dose: 2.5 mg Albuterol/Ipratropium (Duoneb) 3 ml INHALATION Q6HWA.RT [facility] Last Admin: 11/17/17 07:34 Dose: 3 ml Calcium/Vitamin D (Os-Zane 500mg + D) 1 tablet PO BIDCM [facility] Last Admin: 11/17/17 08:59 Dose: 1 tablet Famotidine (Pepcid) 20 mg PO BID [facility] Last Admin: 11/17/17 08:59 Dose: 20 mg Hydralazine HCl (Apresoline Iv) 10 mg IV Q4H PRN PRN PRN Reason: SBP > 160 Magnesium Hydroxide (Milk Of Magnesia) 30 ml PO DAILY PRN PRN Reason: Constipation Morphine Sulfate () 1 - 2 mg IV Q4H PRN PRN PRN Reason: PAIN Last Admin: 11/17/17 03:36 Dose: 2 mg Multivitamins/Minerals (Multivitamin With Minerals) [facility] Last Admin: 11/17/17 08:59 Dose: 1 tablet Nicotine (Nicoderm Cq (Pbkc)) 21 mg TRANSDERM. DAILY [facility] Last Admin: 11/17/17 09:00 Dose: 21 mg Nutritional Formula (Lactose Free) (Ensure Enlive) 120 ml PO 4X/DAY [facility] Last Admin: 11/17/17 09:00 Dose: Not Given Ondansetron HCl (Zofran) 4 mg IV Q8H PRN PRN PRN Reason: NAUSEA/VOMITING Last Admin: 11/17/17 03:37 Dose: 4 mg Sodium Chloride () 5 - 30 ml IV UD PRN PRN Reason: SALINE FLUSH Last Admin: 11/17/17 03:36 Dose: 20 ml Temazepam (Restoril) 15 mg PO QHS PRN PRN PRN Reason: insomnia Medical Necessity - Tobacco Use Smoking Status: Current every day smoker Tobacco Use: Cigarettes Assessment/Plan Active and Suspected Problems (Last Reviewed 08/19/17 @ 08:59 by Elena Seth) Spontaneous pneumothorax (Acute) 1. spontaneous PTX * s/p chest tube * Chest x-ray this morning was reviewed and showed no residual pneumo thorax. * Per Dr. Berry to evaluate and determine when the chest tube can come out. 2. DVT proph: SCDs 3. Nausea and vomiting * Transient * Consider abdominal imaging as patient still has issues with this as it could indicate the patient may have an ileus or small bowel obstruction. 4. COPD * Likely the source of the patient's pneumothorax * We will add Mucinex to see if that can help the patient expectorate some sputum. Code Visit Inpatient E&M: 46620 Subs Hosp L2
[2017-11-17] MEDS: guaiFENesin 1,200 MG Tablet 1200 MG PO ×2 (10:44→21:41)
--- NOTE | 2017-11-17 11:00 | RAD_ITS ---
STUDY: X-RAY CHEST REASON FOR EXAM: Female, 67 years old. Pneumothorax TECHNIQUE: PA and lateral views of the chest. COMPARISON: 11/17/2017 FINDINGS: The thin bore left pleural catheter has been removed. No change to the implanted central catheter. The lungs are hyperinflated. No pneumothorax is seen. Normal size heart. Normal mediastinum and magda. Normal visualized pulmonary arteries. Normal visualized aortic arch and descending thoracic aorta. Normal visualized thoracic spine. Normal visualized ribs, clavicles, and shoulders. There is no demonstrated abnormality of the visualized soft tissue structures of the upper abdomen. RAD/Chest PA and Lateral IMPRESSION: No pneumothorax status post left chest tube removal. COPD. Electronically Signed: Maulik Orlando DO at 11:05 EDT Tel , Service support ,
--- NOTE | 2017-11-17 11:18 | CASEMGMT ---
Face to Face with patient for initial transition planning/care coordination assessment. RN LUIS introduced self and role at [facility], pt voices understanding and consents to assessment at this time. Pt is sitting up in bed in no distress at this time. Pt is A/O x4 at this time and answers all questions appropriately at this time. Care providers, pharmacy, and demographics verified. See attached link. Pt voices no further concerns/needs at this time. Advised pt to ask for CM if any further questions/concerns/needs arise, voices understanding. CM to follow for any further discharge planning/needs. [place] [facility] [facility]
--- NOTE | 2017-11-17 15:49 | PCM.DC ---
- Discharge Diagnoses Current Active Problems: Current Active and Chronic Problems (Last Reviewed 08/19/17 @ 08:59 by Elena Seth) Tobacco dependence (Chronic) Osteoporosis (Chronic) COPD (chronic obstructive pulmonary disease) (Chronic) Spontaneous pneumothorax (Acute) You will use the following diet at home:: No restrictions Your food should be the consistency of: Regular Discharge Activity: Return to Normal Activity Call your doctor if your incision/area has: Sudden Increased Bleeding, Increased Pain/ Swelling, Increased Redness Call your doctor if you observe: Fever of 101 or Higher, Shortness of breath, Chest pain Allergies/Adverse Reactions: Allergies No Known Allergies Allergy (Verified 11/15/17 08:13) Medications to take at Discharge Albuterol IH (ProAir) [Proair Hfa] 1 puff INHALATION Q4H PRN PRN #1 inhaler 04/15/17 Guaifenesin [Mucinex] 1,200 mg PO BID #14 tab 11/17/17 Hydrocodone Bitart/Apap 5-325 [[place] 5/325] 1 - 2 tablet PO Q6H PRN PRN 3 Days #12 tablet 11/17/17 The following prescriptions were given: Hydrocodone Bitart/Apap 5-325 [[place] 5/325] 1 - 2 tablet PO Q6H PRN PRN 3 Days #12 tablet PRN Reason: Moderate-severe pain Guaifenesin [Mucinex] 1,200 mg PO BID #14 tab Primary Care Physician: Deshawn Torrez MD [Primary Care Provider] - Within 1 Week Please Follow Up With: Donald Park MD When: next scheduled appointment Please Follow Up With: Angel Sheikh MD When: as needed. Proposed Discharge Date: 11/17/17
--- NOTE | 2017-11-17 15:50 | PCM.DC.SUM ---
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 Large-size left pneumothorax demonstrated with minimal shift of mediastinum to the right side, likely an early tension pneumothorax. 2. COPD changes. N.B. : The above information has been verbally conveyed by Guerda Britton MD to Katlin Hsu on 11/15/2017 09:12:54 (ET). Electronically Signed: Guerda Britton MD at 9:14 EDT Tel , Service support , N.B. : The above information has been verbally conveyed by Guerda Britton MD to Katlin Hsu on 11/15/2017 09:12:54 (ET). Chest X-Ray 11/15/17 09:34 IMPRESSION: Status post left-sided chest tube placement trace remaining pneumothorax. Hyperinflation of the lungs. Left-sided Port-A-Cath stable since prior study. Electronically Signed: Lulu Hines MD at 10:18 EDT Tel , Service support , Chest X-Ray 11/16/17 06:03 IMPRESSION: There may be a small residual left anterior pneumothorax. No discrete pleural line is seen. No change to the life support tubes and catheters. Electronically Signed: Maulik DO Darion at 8:48 EDT Tel , Service support , Chest X-Ray 11/17/17 05:00 IMPRESSION: No definite residual pneumothorax. No change to the position of the left chest tube. Electronically Signed: Maulik DO Darion at 7:56 EDT Tel , Service support , Chest X-Ray 11/17/17 11:00 IMPRESSION: No pneumothorax status post left chest tube removal. COPD. Electronically Signed: Maulik Orlando DO at 11:05 EDT Tel , Service support , Operations: None Procedures: - - left chest tube placement. Summary of Care Provided: The patient is a 67 year old F is with shortness of breath and chest pain. Patient was found to have a left-sided pneumothorax. Chest tube was placed and 20 cm of negative water pressure was started. Dr. Berry, of general surgery, was consulted for management of the chest tube. On patient still had a leak. Today patient repeat chest x-ray showed continued resolution of the pneumothorax and chest tube was removed. Chest x-ray after the chest tube removal again showed no pneumothorax. It is felt that the patient's pneumothorax likely developed from her COPD. There was no trauma that preceded this. Patient has been cleared for discharge from general surgery's perspective. Patient is advised to quit smoking as it will only lead to continued worsening of her COPD. Patient will receive prescription for 12 [place] for pain from the chest tube site that she had. [] Discharge Diet: No Restrictions Discharge Activity: Return to Normal Activity Call your doctor if your incision/area has: Sudden Increased Bleeding, Increased Pain/ Swelling, Increased Redness Call your doctor if you observe: Fever of 101 or Higher, Shortness of breath, Chest pain Home Medications: Medications to take at Discharge Albuterol IH (ProAir) [Proair Hfa] 1 puff INHALATION Q4H PRN PRN #1 inhaler 04/15/17 Guaifenesin [Mucinex] 1,200 mg PO BID #14 tab 11/17/17 Hydrocodone Bitart/Apap 5-325 [[place] 5/325] 1 - 2 tablet PO Q6H PRN PRN 3 Days #12 tablet 11/17/17 Following Prescrptions Were Given to Patient: Hydrocodone Bitart/Apap 5-325 [[place] 5/325] 1 - 2 tablet PO Q6H PRN PRN 3 Days #12 tablet PRN Reason: Moderate-severe pain Guaifenesin [Mucinex] 1,200 mg PO BID #14 tab Primary Care Physician: Deshawn Torrez MD [Primary Care Provider] - Within 1 Week Please Follow Up With: Donald Park MD When: next scheduled appointment Please Follow Up With: Angel Sheikh MD When: as needed. Disposition: Home Minutes spent on discharge:: 32 Patient Condition:: Fair Medical Necessity - Tobacco Use Smoking Status: Current every day smoker Tobacco Use: Cigarettes Meaningful Use Info Meaningful Use Diagnoses (Choose all that apply): None applicable Code Visit Inpatient E&M: 36188 Disch Hosp
--- NOTE | 2017-11-17 15:54 | DS.PCM_ITS ---
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 Large-size left pneumothorax demonstrated with minimal shift of mediastinum to the right side, likely an early tension pneumothorax. 2. COPD changes. N.B. : The above information has been verbally conveyed by Guerda Britton MD to Katlin Hsu on 11/15/2017 09:12:54 (ET). Electronically Signed: Guerda Britton MD at 9:14 EDT Tel , Service support , N.B. : The above information has been verbally conveyed by Guerda Britton MD to Katlin Hsu on 11/15/2017 09:12:54 (ET). Chest X-Ray 11/15/17 09:34 IMPRESSION: Status post left-sided chest tube placement trace remaining pneumothorax. Hyperinflation of the lungs. Left-sided Port-A-Cath stable since prior study. Electronically Signed: Lulu Hines MD at 10:18 EDT Tel , Service support , Chest X-Ray 11/16/17 06:03 IMPRESSION: There may be a small residual left anterior pneumothorax. No discrete pleural line is seen. No change to the life support tubes and catheters. Electronically Signed: Maulik DO Darion at 8:48 EDT Tel , Service support , Chest X-Ray 11/17/17 05:00 IMPRESSION: No definite residual pneumothorax. No change to the position of the left chest tube. Electronically Signed: Maulik DO Darion at 7:56 EDT Tel , Service support , Chest X-Ray 11/17/17 11:00 IMPRESSION: No pneumothorax status post left chest tube removal. COPD. Electronically Signed: Maulik Orlando DO at 11:05 EDT Tel , Service support , Operations: None Procedures: - - left chest tube placement. Summary of Care Provided: The patient is a 67 year old F is with shortness of breath and chest pain. Patient was found to have a left-sided pneumothorax. Chest tube was placed and 20 cm of negative water pressure was started. Dr. Berry, of general surgery, was consulted for management of the chest tube. On patient still had a leak. Today patient repeat chest x-ray showed continued resolution of the pneumothorax and chest tube was removed. Chest x-ray after the chest tube removal again showed no pneumothorax. It is felt that the patient's pneumothorax likely developed from her COPD. There was no trauma that preceded this. Patient has been cleared for discharge from general surgery's perspective. Patient is advised to quit smoking as it will only lead to continued worsening of her COPD. Patient will receive prescription for 12 [place] for pain from the chest tube site that she had. [] Discharge Diet: No Restrictions Discharge Activity: Return to Normal Activity Call your doctor if your incision/area has: Sudden Increased Bleeding, Increased Pain/ Swelling, Increased Redness Call your doctor if you observe: Fever of 101 or Higher, Shortness of breath, Chest pain Home Medications: Medications to take at Discharge Albuterol IH (ProAir) [Proair Hfa] 1 puff INHALATION Q4H PRN PRN #1 inhaler Guaifenesin [Mucinex] 1,200 mg PO BID #14 tab 11/17/17 Hydrocodone Bitart/Apap 5-325 [[place] 5/325] 1 - 2 tablet PO Q6H PRN PRN 3 Days # 12 tablet 11/17/17 Following Prescrptions Were Given to Patient: Hydrocodone Bitart/Apap 5-325 [[place] 5/325] 1 - 2 tablet PO Q6H PRN PRN 3 Days # 12 tablet PRN Reason: Moderate-severe pain Guaifenesin [Mucinex] 1,200 mg PO BID #14 tab Primary Care Physician: Deshawn Torrez MD [Primary Care Provider] - Within 1 Week Please Follow Up With: Donald Park MD When: next scheduled appointment Please Follow Up With: Angel Sheikh MD When: as needed. Disposition: Home Minutes spent on discharge:: 32 Patient Condition:: Fair Medical Necessity - Tobacco Use Smoking Status: Current every day smoker Tobacco Use: Cigarettes Meaningful Use Info Meaningful Use Diagnoses (Choose all that apply): None applicable Code Visit Inpatient E&M: 16980 Disch Hosp
[2017-11-17] MEDS: HYDROcodone Bitartrate/Apap 5/325 Tablet PO ×2 (16:34→22:35)
--- NOTE | 2017-11-17 17:20 | RAD_ITS ---
STUDY: X-RAY CHEST REASON FOR EXAM: Female, 67 years old. Chest pain TECHNIQUE: Frontal and lateral views COMPARISON: November 17, 2017 FINDINGS: Left venous pole with tip at the SVC level is again noted. The lungs are hyperaerated. There is no demonstrated pleural abnormality. Normal size heart. Normal mediastinum and magda. Normal visualized pulmonary arteries. Normal visualized aortic arch and descending thoracic aorta. Normal visualized thoracic spine. Normal visualized ribs, clavicles, and shoulders. There is no demonstrated abnormality of the visualized soft tissue structures of the upper abdomen. RAD/Chest PA and Lateral IMPRESSION: Stable hyperaeration. Electronically Signed: Ignacio Rosario DO at 18:35 EDT Tel [phone], Service support ,
--- NOTE | 2017-11-17 18:55 | PCM.PN.SRG ---
Patient Problems: Active and Suspected Problems (Last Reviewed 08/19/17 @ 08:59 by Elena Seth) Spontaneous pneumothorax (Acute) - Physical Exam General: Alert, Oriented x3, Cooperative Lungs: Normal air movement, Rhonchi, - - chest tube demonstrates no air leak today Cardiovascular: Regular rate, Regular Rhythm Vital Signs Temp Pulse Resp BP Pulse Ox 98.1 F 103 H 18 118/73 92 11/17/17 16:00 11/17/17 16:00 11/17/17 16:00 11/17/17 16:00 11/17/17 16:25 Oxygen Flow Rate (L/min) 1.5 Oxygen Delivery Method Room Air Weight: 38.8 kg Body Mass Index (BMI) 14.6 Intake and Output for Last 24 Hours 11/15/17 11/16/17 11/17/17 23:59 23:59 23:59 Intake Total 600 / 600 1270 / 1270 700 / 700 Balance 600 / 600 1270 / 1270 700 / 700 Medical Necessity - Tobacco Use Smoking Status: Current every day smoker Tobacco Use: Cigarettes Assessment/Plan Active and Suspected Problems (Last Reviewed 08/19/17 @ 08:59 by Elena Seth) Spontaneous pneumothorax (Acute) - 4. Chronic tobacco use, COPD, spontaneous pneumothorax-continue with pneumocath. chest x-ray appears completely expanded. This morning, but there no air leak when patient coughs. The chest tube was removed. Follow-up chest x-ray demonstrated no pneumothorax. I'm comfortable with the patient being discharged from my standpoint. Discussed with the patient the need for smoking cessation.
--- NOTE | 2017-11-17 19:12 | RAD_ITS ---
STUDY: X-RAY CHEST REASON FOR EXAM: Female, 67 years old. Shortness of breath TECHNIQUE: Single frontal view COMPARISON: November 17, 2017 at 17:35 hours FINDINGS: There is a 50% left pneumothorax. Normal size heart. Normal mediastinum and magda. Normal visualized pulmonary arteries. Normal visualized aortic arch and descending thoracic aorta. Normal visualized thoracic spine. Normal visualized ribs, clavicles, and shoulders. There is no demonstrated abnormality of the visualized soft tissue structures of the upper abdomen. RAD/Chest 1 View (Portable) IMPRESSION: Left pneumothorax. N.B. : The above information has been verbally conveyed by Ignacio Rosario DO to Dr. Guillermo , Referring Physician, on 11/17/2017 20:25:07 (ET). Electronically Signed: Ignacio Rosario DO at 20:14 EDT Tel [phone], Service support , N.B. : The above information has been verbally conveyed by Ignacio Rosario DO to Dr. Guillermo , Referring Physician, on 11/17/2017 20:25:07 (ET).
[2017-11-17] MEDS: Midazolam 2 MG/2 ML Syringe (20:20)
--- NOTE | 2017-11-17 20:34 | RAD_ITS ---
STUDY: X-RAY CHEST REASON FOR EXAM: Female, 67 years old. Pneumocath placement TECHNIQUE: Single frontal view COMPARISON: November 17, 2017 at 19:30 hours FINDINGS: The previously noted left pneumothorax has significantly reduced with residual less than 10% pneumothorax noted. A small caliber catheter is noted over the left hemithorax. Left venous pole with tip in the mid SVC level. The lungs demonstrate mild interstitial prominence. Normal size heart. Normal mediastinum and magda. Normal visualized pulmonary arteries. Normal visualized aortic arch and descending thoracic aorta. Normal visualized thoracic spine. Normal visualized ribs, clavicles, and shoulders. There is no demonstrated abnormality of the visualized soft tissue structures of the upper abdomen. RAD/Chest 1 View (Portable) IMPRESSION: Interval improving left pneumothorax with minimal, less than 10% residual left pneumothorax remains. Electronically Signed: Ignacio Rosario DO at 21:43 EDT Tel [phone], Service support ,
--- NOTE | 2017-11-17 20:35 | CT_ITS ---
STUDY: CT CHEST WITHOUT CONTRAST REASON FOR EXAM: Female, 67 years old. Pneumothorax, shortness of breath RADIATION DOSAGE (If Supplied By Facility): CTDIvol = ( 6.10 ) mGy, DLP = ( 250.04 ) mGycm TECHNIQUE: Transaxial imaging was performed without the administration of intravenous contrast material. Individualized dose optimization techniques were used for this CT. COMPARISON: None. FINDINGS: The lungs are hyperaerated with significant emphysematous changes especially in the lung apices. There is a left pneumothorax, approximately 10-20 % in size. Small caliber left chest tube is in place with tip located anteriorly. Mild basilar atelectasis. 6 mm slightly irregular right upper lobe nodular density may be related to focal nodular scarring. Apical pleural thickening/scarring bilaterally. Normal heart and pericardium. Mild adenopathy of the mediastinum. Normal hilar regions. Normal unenhanced pulmonary arteries. Mildly calcified aorta arch and descending thoracic aorta. Normal osseous structures. There is no demonstrated abnormality of the visualized upper abdomen. CT/Chest without Contrast IMPRESSION: Hyperaerated lungs with emphysematous changes especially in the lung apices. Left pneumothorax. Mild mediastinal adenopathy. Electronically Signed: Ignacio Rosario DO at 23:44 EDT Tel [phone], Service support ,
--- NOTE | 2017-11-17 20:37 | PCM.PN.SRG ---
Patient Problems: Active and Suspected Problems (Last Reviewed 08/19/17 @ 08:59 by Elena Seth) Spontaneous pneumothorax (Acute) Subjective: recurrent SOB after coughing - Physical Exam General: Alert, Oriented x3 Lungs: Diminished - left side Cardiovascular: Tachycardic Vital Signs Temp Pulse Resp BP Pulse Ox 98.1 F 103 H 18 118/73 92 11/17/17 16:00 11/17/17 16:00 11/17/17 16:00 11/17/17 16:00 11/17/17 16:25 Oxygen Flow Rate (L/min) 1.5 Oxygen Delivery Method Room Air Weight: 38.8 kg Body Mass Index (BMI) 14.6 Intake and Output for Last 24 Hours 11/15/17 11/16/17 11/17/17 23:59 23:59 23:59 Intake Total 600 / 600 1270 / 1270 700 / 700 Balance 600 / 600 1270 / 1270 700 / 700 Medical Necessity - Tobacco Use Smoking Status: Current every day smoker Tobacco Use: Cigarettes Assessment/Plan Active and Suspected Problems (Last Reviewed 08/19/17 @ 08:59 by Elena Seth) Spontaneous pneumothorax (Acute) - 4. Chronic tobacco use, COPD, spontaneous pneumothorax-continue with pneumocath. patient coughed, left chest x-ray demonstrated a recurrent pneumothorax. I returned an replaced a pneumocath - at [id number]. Will order protable CXR to confirm reexpansion. Then plan for CT scan of the chest and anticipate need for transfer to tertiary care center for VAT/bleb resection.
--- NOTE | 2017-11-17 20:40 | PN.SURG_ITS ---
Patient Problems: Active and Suspected Problems (Last Reviewed 08/19/17 @ 08:59 by Elena Seth) Spontaneous pneumothorax (Acute) Subjective: recurrent SOB after coughing - Physical Exam General: Alert, Oriented x3 Lungs: Diminished - left side Cardiovascular: Tachycardic Vital Signs Temp Pulse Resp BP Pulse Ox 98.1 F 103 H 18 118/73 92 11/17/17 16:00 11/17/17 16:00 11/17/17 16:00 11/17/17 16:00 11/17/17 16:25 Oxygen Flow Rate (L/min) 1.5 Oxygen Delivery Method Room Air Weight: 38.8 kg Body Mass Index (BMI) 14.6 Intake and Output for Last 24 Hours 11/15/17 11/16/17 11/17/17 23:59 23:59 23:59 Intake Total 600 / 600 1270 / 1270 700 / 700 Balance 600 / 600 1270 / 1270 700 / 700 Medical Necessity - Tobacco Use Smoking Status: Current every day smoker Tobacco Use: Cigarettes Assessment/Plan Active and Suspected Problems (Last Reviewed 08/19/17 @ 08:59 by Elena Seth) Spontaneous pneumothorax (Acute) - 4. Chronic tobacco use, COPD, spontaneous pneumothorax-continue with pneumocath. patient coughed, left chest x-ray demonstrated a recurrent pneumothorax. I returned an replaced a pneumocath - at [id number]. Will order protable CXR to confirm reexpansion. Then plan for CT scan of the chest and anticipate need for transfer to tertiary care center for VAT/bleb resection.
--- NOTE | 2017-11-17 20:40 | PCM.OPRPT ---
Report of Operation Date of Procedure: 11/17/17 Pre-Operative Diagnosis: recurrent left pneumothorax Post-Operative Diagnosis: recurrent left pneumothorax Surgery/Procedure Performed:: left pneumocath placement Type of Anesthesia:: IV Sedation Specimen's removed: none Description of Procedure: patient was examined, noted decreased left breast sounds and CXR reviewed. Patient consented. 2mg versed given for sedation. Pulsed ox heart rate and BP monitored. N/C O2. left chest prepped and drapped. 1% lidocaine in skin to pleura. an 8F pneumocath was inserted through a small stab wound. air aspirated. The catheter advanced. attached to a plueravac at 20cm H20 suction. dressing applied, all joints taped. portable CXr ordered. patient tolerated the procedure well. symmetric breath sounds after.
[2017-11-17] MEDS: 0.9% Normal Saline 1,000 ML 30 ML IV (21:00)
[2017-11-18] VITALS (11 sets, daily range): BP systolic 106–126; BP diastolic 61–80; PULSE 81–97; RESP 14–21; TEMP 36.6; O2SAT 95–98
[2017-11-18] MEDS: Morphine 4 MG/ML Syringe IV (02:47)
[2017-11-18] MEDS: 0.9% NaCl Peripheral Flush Adult/Peds IV (02:47)
[2017-11-18] MEDS: Acetaminophen 325 MG Tablet 650 MG PO (06:29)
[2017-11-18] MEDS: Ipratropium/Albuterol Sulfate 3 ML AMPUL.NEB INHALATION ×2 (07:00→13:25)
[2017-11-18] MEDS: Famotidine 20 MG Tablet PO (09:05)
[2017-11-18] MEDS: guaiFENesin 1,200 MG Tablet 1200 MG PO (09:05)
[2017-11-18] MEDS: Multivitamins,Ther W-Minerals Tablet 1 TABLET PO (09:05)
[2017-11-18] MEDS: Calcium Carb/Vitamin D 1 TABLET Tablet PO (10:12)
--- NOTE | 2017-11-18 11:47 | PCM.PN.HOSP ---
Patient Problems: Active and Suspected Problems (Last Reviewed 08/19/17 @ 08:59 by Elena Seth) Spontaneous pneumothorax (Acute) Subjective: Developed sudden onset of chest pain as she is being wheeled out. Repeat chest x-ray initially was unremarkable. Patient weight a little bit and then more short of breath. Repeat chest x-ray showed left-sided pneumothorax. Chest tube was replaced by Dr. Berry last evening. Patient has been breathing fine since then. Dr. Berry has contact the [facility] for transfer there to be evaluated by cardiothoracic surgeons for possible bleb resection. Vitals/I&O's: Vital Signs Temp Pulse Resp BP Pulse Ox 36.6 C 92 18 124/61 H 95 11/18/17 10:10 11/18/17 10:56 11/18/17 10:10 11/18/17 10:10 11/18/17 10:10 Oxygen Flow Rate (L/min) 2 Oxygen Delivery Method Room Air Weight: 38.8 kg Body Mass Index (BMI) 14.6 Intake and Output for Last 24 Hours 11/16/17 11/17/17 11/18/17 23:59 23:59 23:59 Intake Total 1270 / 1270 1036 / 1036 170 / 170 Balance 1270 / 1270 1036 / 1036 170 / 170 General: Alert, Cooperative, No apparent distress HEENT: Atraumatic, Normocephalic Neck: No Nodes, Thyroid Normal Size and Texture Lungs: Normal air movement, No rhonchi, No wheeze, - - Left lower lobe crackles Cardiovascular: Regular rate, Regular Rhythm, Normal S1, Normal S2, No murmurs Abdomen: Bowel Sounds Present, Soft, Non Tender, Non-Distended, No Hepato-splenomegaly Extremities: No Calf Tenderness Psych/Mental Status: Normal Affect, Appropriate Current Medications Acetaminophen (Tylenol) 650 mg PO Q6H PRN PRN PRN Reason: Non-cardiac pain (mod-severe) Last Admin: 11/18/17 06:29 Dose: 650 mg Hydrocodone Bitart/Acetaminophen ([place] 5mg-325mg) 1 - 2 tablet PO Q6H PRN PRN PRN Reason: Moderate-severe pain Last Admin: 11/17/17 22:35 Dose: 2 tablet Albuterol Sulfate (Ventolin Aerosols) 2.5 mg INHALATION Q2H PRN PRN PRN Reason: dyspnea, wheezing Last Admin: 11/16/17 21:02 Dose: 2.5 mg Albuterol/Ipratropium (Duoneb) 3 ml INHALATION Q6HWA.RT [facility] Last Admin: 11/18/17 07:00 Dose: 3 ml Calcium/Vitamin D (Os-Zane 500mg + D) [facility] Last Admin: 11/18/17 10:12 Dose: 1 tablet Famotidine (Pepcid) 20 mg PO BID [facility] Last Admin: 11/18/17 09:05 Dose: 20 mg Guaifenesin (Mucinex) 1,200 mg PO BID [facility] Last Admin: 11/18/17 09:05 Dose: 1,200 mg Hydralazine HCl (Apresoline Iv) 10 mg IV Q4H PRN PRN PRN Reason: SBP > 160 Sodium Chloride () 1,000 mls @ 30 mls/hr IV .[id number] [facility] Last Admin: 11/17/17 21:00 Dose: 30 mls/hr Magnesium Hydroxide (Milk Of Magnesia) 30 ml PO DAILY PRN PRN Reason: Constipation Morphine Sulfate () 1 - 2 mg IV Q4H PRN PRN PRN Reason: PAIN Last Admin: 11/18/17 02:47 Dose: 2 mg Multivitamins/Minerals (Multivitamin With Minerals) 1 [facility] Last Admin: 11/18/17 09:05 Dose: 1 tablet Nicotine (Nicoderm Cq (Pbkc)) 21 mg TRANSDERM. DAILY [facility] Last Admin: 11/18/17 09:05 Dose: 21 mg Nutritional Formula (Lactose Free) (Ensure Enlive) 120 ml PO 4X/DAY [facility] Last Admin: 11/18/17 09:05 Dose: Not Given Ondansetron HCl (Zofran) 4 mg IV Q8H PRN PRN PRN Reason: NAUSEA/VOMITING Last Admin: 11/17/17 03:37 Dose: 4 mg Sodium Chloride () 5 - 30 ml IV UD PRN PRN Reason: SALINE FLUSH Last Admin: 11/18/17 02:47 Dose: 10 ml Temazepam (Restoril) 15 mg PO QHS PRN PRN PRN Reason: insomnia Medical Necessity - Tobacco Use Smoking Status: Current every day smoker Tobacco Use: Cigarettes Assessment/Plan All Active Problems (Last Reviewed 08/19/17 @ 08:59 by Elena Seht) Spontaneous pneumothorax (Acute) Invasive ductal carcinoma of right breast, stage 1 (Resolved) Postmenopausal bleeding (Resolved) 1. spontaneous PTX s/p chest tube #2 Patient will be going to [facility] to be further evaluated by current thoracic surgery for possible bleb resection which is likely nidus for the pneumothorax versus during decortication procedure was just more conservative management. 2. DVT proph: SCDs 3. Nausea and vomiting Transient Consider abdominal imaging as patient still has issues with this as it could indicate the patient may have an ileus or small bowel obstruction. 4. COPD Likely the source of the patient's pneumothorax We will add Mucinex to see if that can help the patient expectorate some sputum.
--- NOTE | 2017-11-18 11:51 | PN_ITS ---
Patient Problems: Active and Suspected Problems (Last Reviewed 08/19/17 @ 08:59 by Elena Seth) Spontaneous pneumothorax (Acute) Subjective: Developed sudden onset of chest pain as she is being wheeled out. Repeat chest x-ray initially was unremarkable. Patient weight a little bit and then more short of breath. Repeat chest x-ray showed left-sided pneumothorax. Chest tube was replaced by Dr. Berry last evening. Patient has been breathing fine since then. Dr. Berry has contact the [facility] for transfer there to be evaluated by cardiothoracic surgeons for possible bleb resection. Vitals/I&O's: Vital Signs Temp Pulse Resp BP Pulse Ox 36.6 C 92 18 124/61 H 95 11/18/17 10:10 11/18/17 10:56 11/18/17 10:10 11/18/17 10:10 11/18/17 10:10 Oxygen Flow Rate (L/min) 2 Oxygen Delivery Method Room Air Weight: 38.8 kg Body Mass Index (BMI) 14.6 Intake and Output for Last 24 Hours 11/16/17 11/17/17 11/18/17 23:59 23:59 23:59 Intake Total 1270 / 1270 1036 / 1036 170 / 170 Balance 1270 / 1270 1036 / 1036 170 / 170 General: Alert, Cooperative, No apparent distress HEENT: Atraumatic, Normocephalic Neck: No Nodes, Thyroid Normal Size and Texture Lungs: Normal air movement, No rhonchi, No wheeze, - - Left lower lobe crackles Cardiovascular: Regular rate, Regular Rhythm, Normal S1, Normal S2, No murmurs Abdomen: Bowel Sounds Present, Soft, Non Tender, Non-Distended, No Hepato- splenomegaly Extremities: No Calf Tenderness Psych/Mental Status: Normal Affect, Appropriate Current Medications Acetaminophen (Tylenol) 650 mg PO Q6H PRN PRN PRN Reason: Non-cardiac pain (mod-severe) Last Admin: 11/18/17 06:29 Dose: 650 mg Hydrocodone Bitart/Acetaminophen ([place] 5mg-325mg) 1 - 2 tablet PO Q6H PRN PRN PRN Reason: Moderate-severe pain Last Admin: 11/17/17 22:35 Dose: 2 tablet Albuterol Sulfate (Ventolin Aerosols) 2.5 mg INHALATION Q2H PRN PRN PRN Reason: dyspnea, wheezing Last Admin: 11/16/17 21:02 Dose: 2.5 mg Albuterol/Ipratropium (Duoneb) 3 ml INHALATION Q6HWA.RT [facility] Last Admin: 11/18/17 07:00 Dose: 3 ml Calcium/Vitamin D (Os-Zane 500mg + D) 1 tablet PO BID[facility] Last Admin: 11/18/17 10:12 Dose: 1 tablet Famotidine (Pepcid) 20 mg PO BID [facility] Last Admin: 11/18/17 09:05 Dose: 20 mg Guaifenesin (Mucinex) 1,200 mg PO BID [facility] Last Admin: 11/18/17 09:05 Dose: 1,200 mg Hydralazine HCl (Apresoline Iv) 10 mg IV Q4H PRN PRN PRN Reason: SBP > 160 Sodium Chloride () 1,000 mls @ 30 mls/hr IV .[id number] [facility] Last Admin: 11/17/17 21:00 Dose: 30 mls/hr Magnesium Hydroxide (Milk Of Magnesia) 30 ml PO DAILY PRN PRN Reason: Constipation Morphine Sulfate () 1 - 2 mg IV Q4H PRN PRN PRN Reason: PAIN Last Admin: 11/18/17 02:47 Dose: 2 mg Multivitamins/Minerals (Multivitamin With Minerals) 1 tablet PO DAILY[facility] Last Admin: 11/18/17 09:05 Dose: 1 tablet Nicotine (Nicoderm Cq (Pbkc)) 21 mg TRANSDERM. DAILY [facility] Last Admin: 11/18/17 09:05 Dose: 21 mg Nutritional Formula (Lactose Free) (Ensure Enlive) 120 ml PO 4X/DAY [facility] Last Admin: 11/18/17 09:05 Dose: Not Given Ondansetron HCl (Zofran) 4 mg IV Q8H PRN PRN PRN Reason: NAUSEA/VOMITING Last Admin: 11/17/17 03:37 Dose: 4 mg Sodium Chloride () 5 - 30 ml IV UD PRN PRN Reason: SALINE FLUSH Last Admin: 11/18/17 02:47 Dose: 10 ml Temazepam (Restoril) 15 mg PO QHS PRN PRN PRN Reason: insomnia Medical Necessity - Tobacco Use Smoking Status: Current every day smoker Tobacco Use: Cigarettes Assessment/Plan All Active Problems (Last Reviewed 08/19/17 @ 08:59 by Elena Seth) Spontaneous pneumothorax (Acute) Invasive ductal carcinoma of right breast, stage 1 (Resolved) Postmenopausal bleeding (Resolved) 1. spontaneous PTX * s/p chest tube #2 * Patient will be going to [facility] to be further evaluated by current thoracic surgery for possible bleb resection which is likely nidus for the pneumothorax versus during decortication procedure was just more conservative management. 2. DVT proph: SCDs 3. Nausea and vomiting * Transient * Consider abdominal imaging as patient still has issues with this as it could indicate the patient may have an ileus or small bowel obstruction. 4. COPD * Likely the source of the patient's pneumothorax * We will add Mucinex to see if that can help the patient expectorate some sputum.
--- NOTE | 2017-11-18 12:08 | NURSING ---
called report to Valerie on [id number]
[2017-11-18] MEDS: 0.9% Normal Saline 1,000 ML 30 ML IV (12:53)
[2017-11-18] MEDS: HYDROcodone Bitartrate/Apap 5/325 Tablet PO (12:53)
--- NOTE | 2017-11-18 19:10 | PN.SURG_ITS ---
Subjective: still a cough this morning - Physical Exam General: Alert, Oriented x3 Lungs: Clear to auscultation, Normal air movement, - - persistent air leak with coughing and deep breaths Cardiovascular: Tachycardic Vital Signs Temp Pulse Resp BP Pulse Ox 97.9 F 97 19 H 126/80 H 97 11/18/17 13:00 11/18/17 14:57 11/18/17 13:50 11/18/17 13:00 11/18/17 13:00 Oxygen Flow Rate (L/min) 2 Oxygen Delivery Method Nasal Cannula Weight: 38.8 kg Body Mass Index (BMI) 14.6 Intake and Output for Last 24 Hours 11/16/17 11/17/17 11/18/17 23:59 23:59 23:59 Intake Total 1270 / 1270 1036 / 1036 590 / 590 Balance 1270 / 1270 1036 / 1036 590 / 590 Medical Necessity - Tobacco Use Smoking Status: Current every day smoker Tobacco Use: Cigarettes Assessment/Plan All Active Problems (Last Reviewed 08/19/17 @ 08:59 by Elena Seth) Spontaneous pneumothorax (Acute) Invasive ductal carcinoma of right breast, stage 1 (Resolved) Postmenopausal bleeding (Resolved) - 4. Chronic tobacco use, COPD, spontaneous pneumothorax-continue with pneumocath. patient coughed, left chest x-ray demonstrated a recurrent pneumothorax. I returned an replaced a pneumocath - at [id number]. Pleur-evac. This morning his air leak with coughing and deep breaths. CT scan demonstrates about a 10% residual pneumothorax with multiple apical blebs in both the right and left. There is scarring versus a mass in the right apical area. I plan to transfer to [facility] thoracic surgery service for VAT/bleb resection.
== END 2017-11-18 15:23 | disposition short-term general hospital (02) | DRG 199 ==
LOC: ED 09:38 → PCU 11:07
PROVIDERS: Admitting Provider Family Medicine; Emergency Provider Emergency Medicine; Family Provider Family Medicine; PCP Family Medicine
DX: J93.82 Other air leak (principal); E43 Unspecified severe protein-calorie malnutrition; Z68.1 Body mass index [BMI] 19.9 or less, adult; J44.9 Chronic obstructive pulmonary disease, unspecified; F17.200 Nicotine dependence, unspecified, uncomplicated; Z85.3 Personal history of malignant neoplasm of breast; Z90.13 Acquired absence of bilateral breasts and nipples; M81.0 Age-related osteoporosis without current pathological fracture; H43.811 Vitreous degeneration, right eye
CPT/HCPCS: 36415; 71045; 71046; 71250; 80048; 83735; 84484; 85025; 85027; 93005; 94640; 97802; 99285; 99406; J7030; A4216; J2405

== ENCOUNTER → 2018-04-01 09:45 | Outpatient (CLI) | payer BC, SELFPAY ==
--- NOTE | 2018-04-01 13:15 | PFT ---
INTRODUCTION: The patient is a 67-year-old female that presents for pulmonary function testing secondary to a diagnosis of COPD. Respiratory therapy reports good patient effort. Bronchodilators were used during testing. INTERPRETATION: Forced expiration spirometry demonstrates the presence of a very severe large airways obstructive ventilatory defect. There was a significant response to aerosolized bronchodilators noted. Both spirograms and flow volume loop are consistent with underlying obstructive lung disease. Body plethysmography was performed and reveals an elevated TLC and RV, indicative of underlying hyperinflation and air-trapping. Diffusing capacity by single breath CO is moderately reduced at 41% of predicted. IMPRESSION: These pulmonary function studies demonstrate the presence of a partially reversible very severe large airways obstructive ventilatory defect with associated hyperinflation, air trapping and reduction in diffusing capacity. There are no previous pulmonary function studies available for comparison.
== END ==
PROVIDERS: Family Provider Family Medicine; PCP Family Medicine; Referring Provider Internal Medicine Critical Care Medicine; Visit Provider Internal Medicine Critical Care Medicine
DX: J44.9 Chronic obstructive pulmonary disease, unspecified (principal)
CPT/HCPCS: 94060; 94726; 94729

== ENCOUNTER → 2018-04-07 10:56 | Outpatient (CLI) | payer BC, SELFPAY ==
[2018-04-07 11:20] VITALS: PULSE 66; PULSE 88; PULSE 89; PULSE 91; O2SAT 90; O2SAT 92; O2SAT 94; O2SAT 95; O2SAT 97; O2SAT 98
--- NOTE | 2018-04-07 14:52 | PCM.PSN.6M ---
PSN 6 Minute Walk Test - 6 Minute Walk Test 6 Minute Walk Test: 6 Minute Walk Test PSN:6-Minute Walk Test Start: 04/07/18 11:20 Freq: Status: Active Protocol: [id number].6MINW Document 04/07/18 11:20 EHSAN (Rec: 04/07/18 11:25 EHSAN [id number]) 6 Minute Walk Test Date Performed 04/07/18 Time Performed 11:00 Height 5 ft 4 in Weight: 45.359 kg Weight in Pounds 100.[address]: Gee [employer] Assistive device used: None Pre-test Oxygen Delivery Method Room Air Pulse Ox (%) 98 Pulse Rate (60-100 beats/min) 66 Dyspnea Nilda Scale (0-10) 0.5 Exertion Nilda Scale (6-20) 6 1st minute Oxygen Delivery Method Room Air Pulse Ox (%) 95 Pulse Rate (60-100 beats/min) 88 2nd minute Oxygen Delivery Method Room Air Pulse Ox (%) 94 Pulse Rate (60-100 beats/min) 88 3rd minute Oxygen Delivery Method Room Air Pulse Ox (%) 92 Pulse Rate (60-100 beats/min) 89 4th minute Oxygen Delivery Method Room Air Pulse Ox (%) 90 Pulse Rate (60-100 beats/min) 91 5th minute Oxygen Delivery Method Room Air Pulse Ox (%) 95 Pulse Rate (60-100 beats/min) 89 6th minute Oxygen Delivery Method Room Air Pulse Ox (%) 90 Pulse Rate (60-100 beats/min) 89 Dyspnea Nilda Scale (0-10) 2 Exertion Nilda Scale (6-20) 12 Post-test Oxygen Delivery Method Room Air Pulse Ox (%) 97 Pulse Rate (60-100 beats/min) 66 Full Laps Walked 17 Partial Lap, Number of Tiles Walked 10 Total Distance Walked (ft) 1013 - Interpretation Interpretation: The patient was able to ambulate 1013 feet over the course of 6 minutes on room air with no assistive devices or breaks. The patient did experience significant desaturation from a baseline of 98%, to as low as 90% without significant tachycardia. These findings are consistent with a respiratory limitation exercise tolerance. - Recommendations Recommendations: No supplemental oxygen is indicated at this time. However, patient should be followed closely given level of desaturation
== END ==
PROVIDERS: Family Provider Family Medicine; PCP Family Medicine; Referring Provider Internal Medicine Critical Care Medicine; Visit Provider Internal Medicine Critical Care Medicine
DX: J44.9 Chronic obstructive pulmonary disease, unspecified (principal)
CPT/HCPCS: 94618

== ENCOUNTER 2018-08-09 02:54 | Inpatient (IN) | payer BC, MEDICARE, SELFPAY ==
[2018-06-21 10:43] VITALS: BMI 14.1
[2018-08-09] VITALS (15 sets, daily range): BP systolic 100–144; BP diastolic 55–75; PULSE 71–109; RESP 16–22; TEMP 36.4–37.1; O2SAT 88–98; BMI 14.3; BMI 14.1; BMI 14.2
--- NOTE | 2018-08-09 03:05 | RAD_ITS ---
HISTORY: C/O SOB AND RT SIDED CPHX OF COPD AND BREAST CA SMOKER EXAM:XR Chest 1 View: Portable COMPARISON: 11/17/2017 FINDINGS: COPD with bilateral hyperinflation. Interval worsening with development of right lower lobe infiltrate and right upper lobe small infiltrate above the minor fissure. The left lung appears clear. Normal heart size. No pneumothorax. Left jugular Port-A-Cath with the catheter tip in the region of the SVC and right atrial junction RAD/Chest 1 View (Portable) IMPRESSION: 1. Right lung infiltrates, new compared to previous, compatible with pneumonia. 2. COPD. at 0431 Reported and signed by: Daryl Yeager MD Electronically Signed: Daryl Yeager, at 4:30 EST Tel , Service support ,
--- NOTE | 2018-08-09 03:05 | EKG12_ITS ---
Test Reason : SOB Blood Pressure : / mmHG Vent. Rate : 096 BPM Atrial Rate : 096 BPM P-R Int : 124 ms QRS Dur : 092 ms QT Int : 380 ms P-R-T Axes : 083 042 058 degrees QTc Int : 480 ms Normal sinus rhythm Nonspecific ST abnormality Abnormal ECG Confirmed by AMPARO ELIAS, EDEN ([id number]), industrial editor JEANNE VALDEZ ([id number]) on 08/10/2018 9:06:29 AM Referred By: CHARITY Confirmed By:EDEN CHRISTENSEN MD
--- NOTE | 2018-08-09 03:05 | ED.RN ---
CALLED FOR EKG PER RN REQUEST, PULLED OLD EKGS FOR
[2018-08-09 03:29] LABS: Absolute Lymphocyte Count 1.39 X10^3/ul (0.83-4.51); Absolute Neutrophil Count 9.6 X10^3/uL (2.0-7.7); Basophil# 0.03 X10^3/uL; Basophil% 0.2 % (0-1); Eosinophil# 0.04 X10^3/uL; Eosinophils% 0.3 % (0-5); Hematocrit 36.5 % (37-47); Hemoglobin 11.8 g/dl (12.0-15.0); Lymphocyte # 1.39 X10^3/ul (4.0); Lymphocyte % 11.4 % (19-41); Mean Corp Hgb Conc 32.3 g/gl (32-36); Mean Corpuscular Hgb 29.5 pg (27.0-32.0); Mean Corpuscular Volume 91.3 fL (81-99); Mean Platelet Vol. 8.6 fl (6.2-12.0); Monocyte# 1.08 X10^3/uL; Monocyte% 8.9 % (0-10); Neutrophil # 9.59 X10^3/uL (2.7-7.7); Neutrophil % 78.7 % (47-70); Platelet Count 287 K/mm3 (150-450); RBC Distribution Width CV 13.2 % (11.6-14.6); RBC Distribution Width SD 43.3 fl (35.1-43.9); White Blood Count 12.2 K/mm3 (4.4-11.0)
[2018-08-09 03:30] LABS: POSITIVE COUNT NO; POSITIVE DIFFERENTIAL NO; POSITIVE MORPHOLOGY NO
[2018-08-09 03:46] LABS: Anion Gap 10 (5-15); BUN 11 mg/dL (7-18); BUN/Creat Ratio 22.4 RATIO (10-20); Calcium,Total 8.7 mg/dL (8.5-10.1); Chloride 103 mmol/L (98-107); Creatinine, Serum 0.49 mg/dL (0.55-1.02); EST Glomerular Filtration Rate 134 mL/min (>60); Est Glom Filt Rate - Afr Amer 162 mL/min (>60); Estimated Creatinine Clearance 68.66 ml/min; Glucose 110 mg/dL (74-106); Potassium 3.3 mmol/L (3.5-5.1); Sodium Level 139 mmol/L (136-145)
[2018-08-09] MEDS: Ceftriaxone 1 GM/50 ML BAG IV (04:31)
--- NOTE | 2018-08-09 04:52 | HP.PCM_ITS ---
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 The patient is a 67 y/o F w/ PMHx: History R Breast CA (Invasive Ductal Carcinoma stage I) s/p BL Mastectomy following w/ Dr. 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 ED on 08/09/18 with history of onset upper respiratory symptoms with congestion, rhinorrhea, fatigue, malaise as well as cough ongoing for the last week suddenly worsening on day of ED presentation with onset right-sided pleuritic chest discomfort and worsened dyspnea. Patient noted initially sputum green in color but is more clear now. She notes additional loose stools but no associated abdominal discomfort, nausea or emesis. She has had poor appetite over the last several days but in the ED states she is actually hungry. Work-up in the ED inclued T 98.1, HR 100, BP 122/75, RR 22, 88% on RA-->93% on 2L NC, CBC with W BC 12.2, hemoglobin 11.8, platelet 287 with left shift, TMP with potassium 3.3, glucose 110, troponin < 0.015, chest x-ray with a right sided lung infiltrates new from prior with chronic COPD changes. In the ED patient administered Rocephin, azithromycin as well as Toradol. 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) BMI 14.1 Tobacco abuse (Chronic) 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 (Chronic) FEV1 31% Peripheral neuropathy due to chemotherapy (Chronic) Floaters (Chronic) Tobacco dependence (Chronic) Osteoporosis (Chronic) COPD (chronic obstructive pulmonary disease) (Chronic) Medical History: Medical History (Last Reviewed 06/21/18 @ 10:42 by Maryann Betts) COPD (chronic obstructive pulmonary disease) J44.9 Cataract H26.9 Collapsed lung J98.19 02/2018, left lung, was sent to [facility] Osteoporosis M81.0 Port placement VATS bullectomy/doxy peurodesis (left) 11/20/17 Visual disturbances, right eye Allergies No Known Allergies Allergy (Verified 06/21/18 10:42) Home Medications: Ambulatory Orders Medication Instructions Recorded Fluticasone/Umeclidin/Vilanter 1 each IH PRN PRN 08/09/18 [Trelegy Ellipta 100-62.5-25] Surgical History: Surgical History (Last Reviewed 06/21/18 @ 10:42 by Maryann Betts) History of bilateral mastectomy Z98.890, Z90.13 History of breast biopsy Z98.890 History of cataract extraction Z98.49 History of exploratory laparotomy Z98.890 Surgical History: - - Bilateral mastectomy 2017, exploratory laparotomy ?2, VATS bullectomy and pleurodesis left-sided, cataract surgery. 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 Smoking Status: Current every day smoker - Previously 2 pack/day cigarette tobacco user now down to 1/2 pack/day. Tobacco Use: Cigarettes Alcohol: Rare Drugs: None - *Family History Maternal Family History: Family History (Last Reviewed 06/21/18 @ 10:42 by Maryann Betts) Mother Hypoglycemia Neuropathy Thyroid disorder Hypertension Heart disease Diverticulitis Father COPD (chronic obstructive pulmonary disease) History Items: - - Patient notes a maternal family history of heart disease, hypertension, neuropathy and thyroid disease. Paternal Family History: Family History (Last Reviewed 06/21/18 @ 10:42 by Maryann Betts) Mother Hypoglycemia Neuropathy Thyroid disorder Hypertension Heart disease Diverticulitis Father COPD (chronic obstructive pulmonary disease) History Items: COPD Review of Systems Constitutional: Reports: Anorexia, Chills, Malaise, Weakness, Fatigue. Denies: Fever, Weight Change HEENT: Denies: Head Aches, Sinus Congestion, Sinus Drainage Cardiovascular: Reports: Chest Pain. Denies: Light Headedness, Orthopnea, Palpitations, Syncope Respiratory: Reports: Cough, Pleuritic Pain, Shortness of Breath, Shortness of breath at rest, Shortness of breath upon exertion, Sputum production Gastrointestinal: Reports: Diarrhea, Nausea. Denies: Abdominal Pain, Vomiting Genitourinary: Denies: Dysuria Musculoskeletal: Reports: Joint Pain. Denies: Joint Tenderness Skin: Denies: Rash, Wounds Neurological: Reports: Tingling. Denies: Focal weakness, Numbness Psychiatric: Denies: Anxiety, Depression, Homicidal Ideations, Suicidal Ideations Hematologic/ Lymphatic: Denies: Easy Bruising, Easy Bleeding VTE Information - Inpt Only VTE Present on Admission: No VTE Mechan Device Prophylaxis: SCD's VTE Pharm Prophylaxis ordered?: Yes Patient Problems: Active and Suspected Problems (Last Reviewed 06/21/18 @ 10:42 by Maryann Betts) Pneumonia (Acute) Subjective: Seated upright in the ED bed, fatigued appearance, cachectic appearing. Objective: Physical Examination: General: awake, alert, oriented x 3 and cooperative, seated upright in the ED bed in no apparent distress. Skin: normal color, turgor, no icterus, cyanosis. HEENT: AT/NC, EOMI, PERRLA, dry MM, no carotid bruits or JVD noted. Lungs: Diffusely diminished breath sounds, greater bilateral bases, no rales, ronchi or wheezing. Heart: Regular rate and rhythm; no gallop, rub audible. Abdomen: soft, cachectic habitus, NTTP, ND, normal BS, no HSM. Extremities: no cyanosis, clubbing, or edema. Neurological: patient awake, alert, oriented x 3; cognitive function intact; pupils equally reactive to light and accomodation; cranial nerves II-XII grossly normal, moving all 4 extremities, no focal deficits, strength moderately to severely globally decreased secondary to acute presentation. Psychiatric: affect appears fatigued, no acute evidence of depressive or anxiety feelings. - Physical Exam Vital Signs Temp Pulse Resp BP Pulse Ox 98.8 F 87 22 H 111/65 95 08/09/18 04:37 08/09/18 04:37 08/09/18 04:37 08/09/18 04:37 08/09/18 04:37 Oxygen Flow Rate (L/min) 2 Oxygen Delivery Method Nasal Cannula Weight: 83 lb 12.41 oz Body Mass Index (BMI) 14.3 Laboratory Tests Past 24 Hrs 08/09/18 08/09/18 03:20 03:20 WBC 12.2 H RBC 4.00 L Hgb 11.8 L Hct 36.5 L MCV 91.3 MCH 29.5 MCHC 32.3 RDW 13.2 RDW Differential 43.3 Plt Count 287 MPV 8.6 Immature Gran % (Auto) 0.500 Neut % (Auto) 78.7 H Lymph % (Auto) 11.4 L [place] % (Auto) 8.9 Eos % (Auto) 0.3 Baso % (Auto) 0.2 Absolute Neuts (auto) 9.6 H Absolute Lymphs (auto) 1.39 Total Counted Not Reportable Sodium 139 Potassium 3.3 L Chloride 103 Carbon Dioxide 26.0 Anion Gap 10 BUN 11 Creatinine 0.49 L Estim Creat Clear Calc 68.66 Est GFR (MDRD) Af Amer 162 Est GFR (MDRD) Non-Af 134 BUN/Creatinine Ratio 22.4 H Glucose 110 H Calcium 8.7 Troponin I < 0.015 Assessment/Plan All Active Problems (Last Reviewed 06/21/18 @ 10:42 by Maryann Betts) Pneumonia (Acute) Invasive ductal carcinoma of right breast, stage 1 (Resolved) Postmenopausal bleeding (Resolved) Spontaneous pneumothorax (Resolved) The patient is a 67 y/o F w/ PMHx: History R Breast CA (Invasive Ductal Carcinoma stage I) s/p BL Mastectomy following w/ Dr. 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 ED on 08/09/18 with history of onset upper respiratory symptoms with congestion, rhinorrhea, fatigue, malaise as well as cough ongoing for the last week suddenly worsening on day of ED presentation with onset right-sided pleuritic chest discomfort and worsened dyspnea. (1) Community Acquired Pneumonia with Hypoxia complicated by Underlying COPD as well as Prior PTX s/p VATS w/ bullectomy: Work-up in the ED inclued T 98.1, HR 100, BP 122/75, RR 22, 88% on RA-->93% on 2L NC, CBC with W BC 12.2, hemoglobin 11.8, platelet 287 with left shift, TMP with potassium 3.3, glucose 110, troponin < 0.015, chest x-ray with a right sided lung infiltrates new from prior with chronic COPD changes. Will admit to [facility], maintain on oxygen with wean as tolerated to room air, continue ATC duonebs, PRN albuterol, maintained on IV Rocephin and Azithromycin, HOB, IS parameters w/ pending sputum cultures, respiratory viral panel and urine antigens. (2) Hypokalemia: Admission K+ 3.3, supplementation given, repeat level in AM. 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 (4) Chronic Peripheral Neuropathy: Secondary to chemotherapeutic agents, stable. (5) Severe protein calorie malnutrition: Evidenced per habitus, BMI, muscle and fat loss, nutrition consulted. (6) Chronic COPD: Will maintain on oxygen with wean as tolerated to room air, PRN albuterol, HOB, IS parameters, ATC duonebs, PRN albuterol, HOB, IS. (7) Tobacco Abuse: Encouraged cessation, inpatient consultation per RT, NR if desired. (8) History R Breast CA, Invasive Ductal Carcinoma stage I: s/p BL Mastectomy following w/ Dr. Park with last Chemotherapy 04/2018, port in place. (9) DVT Prophylaxis: SCDs, lovenox. Code Visit Inpatient E&M: [id number] Init Hosp L3
--- NOTE | 2018-08-09 04:57 | ED.DCSUM_ITS ---
- ER Visit Summary Date of Service: 08/09/18 Chief Complaint: Cough History of Present Illness: The patient is a 67 F who presents with chest pain shortness of breath and cough. She has been ill for about a week with congestion rhinorrhea productive cough. She has had some diarrhea as well. She woke this morning and had right-sided chest pain which is sharp worse with inspiration. She also felt short of breath. No history of DVT or pulmonary embolism. She does have a history of breast cancer which she underwent chemo therapy for but has not had treatment in 4 months. No fevers. No vomiting. She is a smoker with a history of COPD. Physical Examination: Initial pulse ox 88% on room air heart rate 109 respiratory rate 20 afebrile blood pressure 144/66 Moist mucous membranes Heart regular rhythm slightly tachycardic Tachypnea no rales or rhonchi she does have some scattered next Tory wheezes Abdomen soft Alert Test Results: EKG shows sinus rhythm at a rate of 96. Labs notable for white blood cell count 12.2, hemoglobin 11.8, potassium 3.3. Troponin negative. Chest x-ray shows right-sided infiltrates. Emergency Department Course and Treatment: Patient was placed on oxygen by nasal cannula. She has maintained stable vitals with normal heart rate and blood pressure. She has not had chemotherapy in greater than 3 months so is community-acquired pneumonia. She was treated with IV Rocephin and azithromycin. Patient discussed with the hospitalist and admitted. Treatment Plan: [] Disposition: Admit Impression: Community acquired pneumonia This note was generated with [employer] dictation software. It may contain incorrect words, spelling, and punctuation that were not noted in review of the chart prior to signing ED Disposition - Plan for ED Patient: Referrals: Deshawn Torrez MD [Primary Care Provider] -
[2018-08-09] MEDS: Ketorolac 15 MG/ML Vial IV (05:11)
[2018-08-09] MEDS: 0.9% Normal Saline 1,000 ML 100 ML IV ×2 (06:50→18:15)
[2018-08-09 06:52] LABS: Magnesium 2.1 mg/dL (1.6-2.6)
[2018-08-09] MEDS: Acetaminophen 325 MG Tablet 650 MG PO ×2 (10:14→18:14)
[2018-08-09] MEDS: Enoxaparin 30 MG/0.3 ML Syringe SC (10:14)
[2018-08-09] MEDS: guaiFENesin 1,200 MG Tablet 1200 MG PO ×2 (10:14→21:29)
[2018-08-09] MEDS: Ipratropium/Albuterol Sulfate 3 ML AMPUL.NEB INHALATION ×3 (11:21→19:32)
--- NOTE | 2018-08-09 12:25 | CASEMGMT ---
RN LUIS Face to Face with patient for initial transition planning/care coordination assessment. RN CM introduced self and role at [facility]. Patient lying in bed, alert and oriented. Patient willing to participate in assessment and is able to answer all questions appropriately. Care providers, pharmacy, and demographics verified. Patient wishes to discharge home, denies need for home health at this time. Patient states she has no further needs or concerns at this time. CM to follow for discharge planning needs that may arise. PCP: Shan Specialists: Jhoan, Pulmonology; Mast, oncology Preferred Pharmacy: [facility] Insurance: [place] Prescription Benefit: yes Living Will/HPOA: None LNOK: Living Arrangements: Patient lives with in 2 story home. Patient independent and able to navigate stairs. Transportation: Self/ family DME/HHC: Patient has nebulizer at home. Denies home oxygen, bipap, or cpap. Will monitor for need for home oxygen. OK with [employer] for DME. NO previous HHC or SNF Disposition Plan: Patient to discharge home with family support and follow-up plans in place. Hannah URIAS, RN, CM
[2018-08-09] MEDS: HYDROcodone Bitartrate/Apap 5/325 Tablet PO ×2 (14:57→21:29)
--- NOTE | 2018-08-09 17:02 | PCM.HOSP.N ---
Hospitalist Note She was seen and examined today, he is currently on 2 L of nasal cannula O2, her urine came back positive for strep pneumoniae antigen, I stopped her Zithromax and Rocephin and placed her on Unasyn starting tomorrow morning. Patient will have a repeat chest x-ray tomorrow morning. Labs will be repeated tomorrow morning.
[2018-08-09] MEDS: Heparin Injection (Vial) 5,000 UNIT/ML VIAL 5000 UNIT SC (21:29)
[2018-08-10] VITALS (12 sets, daily range): BP systolic 118–138; BP diastolic 68–89; PULSE 67–91; RESP 16–20; TEMP 36.3–36.9; O2SAT 89–98
[2018-08-10] MEDS: HYDROcodone Bitartrate/Apap 5/325 Tablet PO (03:39)
--- NOTE | 2018-08-10 05:55 | RAD_ITS ---
STUDY: X-RAY CHEST REASON FOR EXAM: Female, 67 years old. SOB TECHNIQUE: Single frontal view of the chest. COMPARISON: 08/09/2018 FINDINGS: Left chest wall port. Stable right basilar and right upper lobe alveolar disease. Chronic interstitial lung changes. There is no demonstrated pleural abnormality. Normal size heart. Normal mediastinum and magda. Normal visualized pulmonary arteries. Normal visualized aortic arch and descending thoracic aorta. Normal visualized thoracic spine. Stable right rib deformities. There is no demonstrated abnormality of the visualized soft tissue structures of the upper abdomen. RAD/Chest 1 View (Portable) IMPRESSION: Stable right basilar and right upper lobe alveolar disease. Chronic interstitial lung changes. Electronically Signed: Kenrick Jack MD at 5:20 EST Tel , Service support ,
[2018-08-10] MEDS: 0.9% Normal Saline 1,000 ML 100 ML IV ×2 (06:30→14:59)
[2018-08-10 06:41] LABS: Absolute Lymphocyte Count 1.24 X10^3/ul (0.83-4.51); Absolute Neutrophil Count 6.1 X10^3/uL (2.0-7.7); Basophil# 0.03 X10^3/uL; Basophil% 0.4 % (0-1); Eosinophils% 1.2 % (0-5); Hematocrit 31.3 % (37-47); Hemoglobin 9.9 g/dl (12.0-15.0); Lymphocyte # 1.24 X10^3/ul (4.0); Lymphocyte % 15.3 % (19-41); Mean Corp Hgb Conc 31.6 g/gl (32-36); Mean Corpuscular Hgb 29.9 pg (27.0-32.0); Mean Corpuscular Volume 94.6 fL (81-99); Mean Platelet Vol. 8.8 fl (6.2-12.0); Monocyte# 0.64 X10^3/uL; Monocyte% 7.9 % (0-10); Neutrophil # 6.08 X10^3/uL (2.7-7.7); Neutrophil % 74.7 % (47-70); Platelet Count 296 K/mm3 (150-450); RBC Distribution Width CV 13.4 % (11.6-14.6); RBC Distribution Width SD 44.2 fl (35.1-43.9); Red Blood Count 3.31 M/mm3 (4.2-5.4); White Blood Count 8.1 K/mm3 (4.4-11.0)
[2018-08-10 06:50] LABS: POSITIVE COUNT NO; POSITIVE DIFFERENTIAL NO; POSITIVE MORPHOLOGY NO
[2018-08-10 06:56] LABS: Anion Gap 5 (5-15); BUN 15 mg/dL (7-18); BUN/Creat Ratio 41.2 RATIO (10-20); Chloride 110 mmol/L (98-107); Creatinine, Serum 0.36 mg/dL (0.55-1.02); EST Glomerular Filtration Rate 189 mL/min (>60); Est Glom Filt Rate - Afr Amer 229 mL/min (>60); Estimated Creatinine Clearance 91.98 ml/min; Glucose 100 mg/dL (74-106); Potassium 4.3 mmol/L (3.5-5.1); Sodium Level 142 mmol/L (136-145)
[2018-08-10] MEDS: Ipratropium/Albuterol Sulfate 3 ML AMPUL.NEB INHALATION ×3 (07:45→19:06)
[2018-08-10] MEDS: 0.9% NaCl VAD Flush 10 ML IV ×2 (08:00→16:43)
[2018-08-10] MEDS: Ondansetron 4 MG/2 ML Vial IV ×2 (08:00→16:43)
--- NOTE | 2018-08-10 09:13 | CPS ---
PEP therapy not done at time of aerosol, patient with complaint of N/V.
[2018-08-10] MEDS: Heparin Injection (Vial) 5,000 UNIT/ML VIAL 5000 UNIT SC ×2 (10:01→21:46)
[2018-08-10] MEDS: guaiFENesin 1,200 MG Tablet 1200 MG PO ×2 (10:02→21:46)
--- NOTE | 2018-08-10 19:22 | PCM.PROGNOTE ---
Patient Problems: Active and Suspected Problems (Last Reviewed 06/21/18 @ 10:42 by Maryann Betts) Pneumonia (Acute) Subjective: Patient was seen and examined today, she is still currently on nasal cannula O2, patient's white blood cell count was normal today at 8.1. Patient's urine antigen was positive for strep pneumonia, patient is never had a pneumonia vaccine due to the cost of the vaccine. Patient's chest x-ray today showed continued infiltrate in the right basilar and right upper lobe. There was also chronic interstitial lung disease noted on the chest x-ray. - Physical Exam General: Alert, Oriented x3, Cooperative, No apparent distress, Well developed HEENT: Atraumatic, PERRLA, EOMI, Normocephalic Oral: Moist Mucosa Neck: Supple, No Nuchal Rigidity, Trachea Midline, Thyroid Normal Size and Texture Lungs: Clear to auscultation, No rhonchi, No wheeze, No rales, Diminished Cardiovascular: Regular rate, Regular Rhythm, Normal S1, Normal S2, No murmurs, No Ectopic Activity Abdomen: Bowel Sounds Present, Soft, Non Tender, Non-Distended, No hernias noted Extremities: No edema, Capillary Refill Less than 3 Seconds Skin: No rashes, No breakdown Musculoskeletal: Cachexia Neurological: Cranial nerves II-XII grossly intact, Neuro grossly intact, Sensory exam intact to light touch and pain, Coordination normal Psych/Mental Status: Normal Affect, Appropriate, Alert and oriented to time, place, person, mood and affect Vital Signs Temp Pulse Resp BP Pulse Ox 97.6 F L 70 18 118/75 98 08/10/18 15:00 08/10/18 15:05 08/10/18 15:00 08/10/18 15:00 08/10/18 15:05 Oxygen Flow Rate (L/min) 2 Oxygen Delivery Method Nasal Cannula Weight: 37.4 kg Body Mass Index (BMI) 14.1 Intake and Output for Last 24 Hours 08/08/18 08/09/18 08/10/18 23:59 23:59 23:59 Intake Total 1455 / 1455 3326 / 3326 Output Total 600 / 600 Balance 1455 / 1455 2726 / 2726 Microbiology Past 72 Hours 08/09/18 10:30 Gram Stain - Final Sputum, Expectorated/Coughed Respiratory Culture - Preliminary Appears to be normal respiratory garry. Further studies to follow. 08/09/18 07:36 Respiratory Panel (PCR) - Final Mucosa - Nasopharyngeal Rhinovirus 08/09/18 10:30 Streptococcus pneumoniae Antigen (M - Final Urine, Clean Catch Streptococcus pneumonia Ag 08/09/18 10:30 Legionella Antigen - Final Urine, Clean Catch Laboratory Tests Past 24 Hrs 08/10/18 08/10/18 06:30 06:30 WBC 8.1 RBC 3.31 L Hgb 9.9 L Hct 31.3 L MCV 94.6 MCH 29.9 MCHC 31.6 L RDW 13.4 RDW Differential 44.2 H Plt Count 296 MPV 8.8 Immature Gran % (Auto) 0.500 Neut % (Auto) 74.7 H Lymph % (Auto) 15.3 L [place] % (Auto) 7.9 Eos % (Auto) 1.2 Baso % (Auto) 0.4 Absolute Neuts (auto) 6.1 Absolute Lymphs (auto) 1.24 Total Counted Not Reportable Sodium 142 Potassium 4.3 Chloride 110 H Carbon Dioxide 27.0 Anion Gap 5 BUN 15 Creatinine 0.36 L Estim Creat Clear Calc 91.98 Est GFR (MDRD) Af Amer 229 Est GFR (MDRD) Non-Af 189 BUN/Creatinine Ratio 41.2 H Glucose 100 Calcium 8.0 L Medical Necessity - Tobacco Use Smoking Status: Current every day smoker Tobacco Use: Cigarettes Assessment/Plan All Active Problems (Last Reviewed 06/21/18 @ 10:42 by Maryann Betts) Pneumonia (Acute) Invasive ductal carcinoma of right breast, stage 1 (Resolved) Postmenopausal bleeding (Resolved) Spontaneous pneumothorax (Resolved) #1 community-acquired pneumonia-strep pneumoniae-continue Unasyn IV, continue aerosol treatments #2 hypoxia secondary to #1-resolving, patient is almost weaned off oxygen #3 severe COPD #4 interstitial lung disease #5 cachexia-probably secondary to severe COPD-nutrition is seeing patient Code Visit Inpatient E&M: 30891 Subs Hosp L2
[2018-08-11] VITALS (10 sets, daily range): BP systolic 105–134; BP diastolic 59–77; PULSE 72–92; RESP 16–20; TEMP 36.2–37.1; O2SAT 83–98
[2018-08-11] MEDS: 0.9% Normal Saline 1,000 ML 100 ML IV (01:19)
[2018-08-11] MEDS: Ipratropium/Albuterol Sulfate 3 ML AMPUL.NEB INHALATION ×3 (06:44→14:58)
[2018-08-11] MEDS: Acetaminophen 325 MG Tablet 650 MG PO (07:39)
[2018-08-11] MEDS: guaiFENesin 1,200 MG Tablet 1200 MG PO (09:56)
[2018-08-11] MEDS: Heparin Injection (Vial) 5,000 UNIT/ML VIAL 5000 UNIT SC (09:56)
--- NOTE | 2018-08-11 11:40 | NURSING ---
ambulated patient in hallway per MD request to assess for home O2 need. see documentation. pt tolerated with mild increased SOB. no acute distress noted.
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
--- NOTE | 2018-08-11 17:12 | DCINST_ITS ---
- Discharge Diagnoses Current Active Problems: Current Active and Chronic Problems (Last Reviewed 06/21/18 @ 10:42 by Maryann Betts) Severe protein-energy malnutrition (Chronic) Pneumonia (Acute) History of breast cancer (Chronic) You will use the following diet at home:: No restrictions Your liquids should be the consistency of: Regular/Thin Discharge Activity: Return to Normal Activity Weight Bearing Status: Full weight bearing Additional Instructions: DO NOT SMOKE. WEAR OXYGEN AT NITE AND WHEN AMBULATING- AVOID USING WITHIN 6 FEET OF OPEN FLAME Allergies/Adverse Reactions: Allergies No Known Allergies Allergy (Verified 06/21/18 10:42) Medications to take at Discharge Fluticasone/Umeclidin/Vilanter [Trelegy Ellipta 100-62.5-25] 1 each IH DAILY PRN PRN 08/09/18 Acetaminophen [Tylenol Tablet] 650 mg PO Q6H PRN PRN tablet 08/11/18 Albuterol Aerosols [Ventolin Aerosols] 2.5 mg INHALATION Q2H PRN PRN vial.neb. 08/11/18 Amoxicillin/Potassium Clav [Augmentin 875-125 Tablet] 1 each PO BID #17 tablet 08/11/18 The following prescriptions were given: Amoxicillin/Potassium Clav [Augmentin 875-125 Tablet] 1 each PO BID #17 tablet Primary Care Physician: Deshawn Torrez MD [Primary Care Provider] - Please follow up with your Primary Care Physician in: [place] 7-10 DAYS Test Results: Test results from this visit will be discussed in further detail at your follow- up appointment, if applicable.
[2018-08-11] MEDS: 0.9% NaCl VAD Flush 10 ML IV (18:01)
--- NOTE | 2018-08-12 14:33 | CASEMGMT ---
ITZ CM DC PHONE CALL DC DATE: 08/11/18 DC DISPOSITION: HOME LACE/STRATA: 03/24 Attempted call. No answer, no message machine. Urvashi OTOOLEN RN ACM
--- NOTE | 2018-08-15 10:12 | PCM.DC.SUM ---
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 Workup in the emergency room showed a white blood cell count of 12.2, potassium was slightly low at 3.3, chest x-ray showed a right sided infiltrate suggestive of acute pneumonia. Patient was placed on oxygen in the emergency room due to a pulse ox of 88% on room air, she was given IV Rocephin and Zithromax and admitted to [place] [address]. Oxygen saturations were monitored on [place] [address], urine antigen for strep pneumonia resulted positive and the patient was changed to Unasyn. Patient's condition improved during her hospital stay, she was seen by nutritional services due to cachexia. Prior to discharge, her oxygen saturation was checked, it was 83% on ambulating on room air, with the application of oxygen, it was 90% on 2 L ambulating. Patient agreed to set up of oxygen at home, she had a wood burning stove however but was instructed to stay at least 6 feet from the wood-burning stove. Patient was instructed to only use the oxygen if she felt short of breath or if she ambulated and also use the oxygen at night. Patient understood these instructions. On 08/11/18, patient was seen and examined: On examination she appeared in good spirits. Vital signs as documented. Skin warm and dry and without overt rashes. Neck without JVD. Lungs-breath sounds were distant bilaterally with occasional expiratory rhonchi noted. Heart exam notable for regular rhythm, normal sounds and absence of murmurs, rubs or gallops. Abdomen unremarkable and without evidence of organomegaly, masses, or abdominal aortic enlargement. Extremities nonedematous. Neuro: Cranial nerves II through XII are grossly intact, no focal motor deficits were noted, sensation to light touch and pinprick is intact. Psych: Patient is alert and oriented x3, she does not appear anxious or depressed On 08/11/18, patient was discharged home in stable condition. She was expected to use the oxygen as prescribed when ambulating and while sleeping. - Physical Exam Vital Signs Temp Pulse Resp BP Pulse Ox 98.4 F 79 20 H 134/74 H 92 08/11/18 17:14 08/11/18 17:14 08/11/18 17:14 08/11/18 17:14 08/11/18 17:14 Oxygen Flow Rate (L/min) [ 2 AMBULATION with Oxygen] Oxygen Flow Rate (L/min) 2 Oxygen Delivery Method Room Air Weight: 37.4 kg Body Mass Index (BMI) 14.1 Discharge Activity: Return to Normal Activity Weight Bearing Status: Full weight bearing Home Medications: Medications to take at Discharge Fluticasone/Umeclidin/Vilanter [Trelegy Ellipta 100-62.5-25] 1 each IH DAILY PRN PRN 08/09/18 Acetaminophen [Tylenol Tablet] 650 mg PO Q6H PRN PRN tablet 08/11/18 Albuterol Aerosols [Ventolin Aerosols] 2.5 mg INHALATION Q2H PRN PRN vial.neb. 08/11/18 Amoxicillin/Potassium Clav [Augmentin 875-125 Tablet] 1 each PO BID #17 tablet 08/11/18 Following Prescrptions Were Given to Patient: Amoxicillin/Potassium Clav [Augmentin 875-125 Tablet] 1 each PO BID #17 tablet Primary Care Physician: Deshawn Torrez MD [Primary Care Provider] - Please follow up with your Primary Care Physician in: [place] 7-10 DAYS Disposition: Home Minutes spent on discharge:: 32 Patient Condition:: Stable Medical Necessity - Tobacco Use Smoking Status: Current every day smoker Tobacco Use: Cigarettes Meaningful Use Info Meaningful Use Diagnoses (Choose all that apply): None applicable Code Visit Inpatient E&M: 07702 Disch Hosp
--- NOTE | 2018-08-15 10:17 | DS.PCM_ITS ---
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 Workup in the emergency room showed a white blood cell count of 12.2, potassium was slightly low at 3.3, chest x-ray showed a right sided infiltrate suggestive of acute pneumonia. Patient was placed on oxygen in the emergency room due to a pulse ox of 88% on room air, she was given IV Rocephin and Zit hromax and admitted to [place] [address]. Oxygen saturations were monitored on [place] [address], urine antigen for strep pneumonia resulted positive and the patient was changed to Unasyn. Patient's condition improved during her hospital stay, she was seen by nutritional services due to cachexia. Prior to discharge, her oxygen saturation was checked, it was 83% on ambulating on room air, with the application of oxygen, it was 90% on 2 L ambulating. Patient agreed to set up of oxygen at home, she had a wood burning stove however but was instructed to stay at least 6 feet from the wood-burning stove. Patient was instructed to only use the oxygen if she felt short of breath or if she ambulated and also use the oxygen at night. Patient understood these instructions. On 08/11/18, patient was seen and examined: On examination she appeared in good spirits. Vital signs as documented. Skin warm and dry and without overt rashes. Neck without JVD. Lungs-breath sounds were distant bilaterally with occasional expiratory rhonchi noted. Heart exam notable for regular rhythm, normal sounds and absence of murmurs, rubs or gallops. Abdomen unremarkable and without evidence of organomegaly, masses, or abdominal aortic enlargement. Extremities nonedematous. Neuro: Cranial nerves II through XII are grossly intact, no focal motor deficits were noted, sensation to light touch and pinprick is intact. Psych: Patient is alert and oriented x3, she does not appear anxious or depressed On 08/11/18, patient was discharged home in stable condition. She was expected to use the oxygen as prescribed when ambulating and while sleeping. - Physical Exam Vital Signs Temp Pulse Resp BP Pulse Ox 98.4 F 79 20 H 134/74 H 92 08/11/18 17:14 08/11/18 17:14 08/11/18 17:14 08/11/18 17:14 08/11/18 17:14 Oxygen Flow Rate (L/min) [ 2 AMBULATION with Oxygen] Oxygen Flow Rate (L/min) 2 Oxygen Delivery Method Room Air Weight: 37.4 kg Body Mass Index (BMI) 14.1 Discharge Activity: Return to Normal Activity Weight Bearing Status: Full weight bearing Home Medications: Medications to take at Discharge Fluticasone/Umeclidin/Vilanter [Trelegy Ellipta 100-62.5-25] 1 each IH DAILY PRN PRN 08/09/18 Acetaminophen [Tylenol Tablet] 650 mg PO Q6H PRN PRN tablet 08/11/18 Albuterol Aerosols [Ventolin Aerosols] 2.5 mg INHALATION Q2H PRN PRN vial.neb. 08/11/18 Amoxicillin/Potassium Clav [Augmentin 875-125 Tablet] 1 each PO BID #17 tablet 08/11/18 Following Prescrptions Were Given to Patient: Amoxicillin/Potassium Clav [Augmentin 875-125 Tablet] 1 each PO BID #17 tablet Primary Care Physician: Deshawn Torrez MD [Primary Care Provider] - Please follow up with your Primary Care Physician in: [place] 7-10 DAYS Disposition: Home Minutes spent on discharge:: 32 Patient Condition:: Stable Medical Necessity - Tobacco Use Smoking Status: Current every day smoker Tobacco Use: Cigarettes Meaningful Use Info Meaningful Use Diagnoses (Choose all that apply): None applicable Code Visit Inpatient E&M: 78881 Disch Hosp
== END 2018-08-11 18:25 | disposition home or self-care (01) | DRG 193 ==
LOC: ED 04:05 → MS3 05:21
PROVIDERS: Admitting Provider Family Medicine; Emergency Provider Emergency Medicine; Family Provider Family Medicine; PCP Family Medicine; Visit Provider Internal Medicine
DX: J13 Pneumonia due to Streptococcus pneumoniae (principal); E43 Unspecified severe protein-calorie malnutrition; Z68.1 Body mass index [BMI] 19.9 or less, adult; R64 Cachexia; J84.9 Interstitial pulmonary disease, unspecified; J44.0 Chronic obstructive pulmonary disease with (acute) lower respiratory infection; F17.210 Nicotine dependence, cigarettes, uncomplicated; E87.6 Hypokalemia; G62.0 Drug-induced polyneuropathy; T45.1X5S Adverse effect of antineoplastic and immunosuppressive drugs, sequela; H43.391 Other vitreous opacities, right eye; H43.811 Vitreous degeneration, right eye; R09.02 Hypoxemia; Z90.13 Acquired absence of bilateral breasts and nipples; Z85.3 Personal history of malignant neoplasm of breast
CPT/HCPCS: 36591; 71045; 80048; 83735; 84100; 84484; 85025; 87070; 87205; 87449; 87633; 93005; 94640; 94667; 94668; 97802; 99282; 99406; J7030; J7050; A4216; J0295; J2405

== ENCOUNTER → 2018-09-27 | Outpatient (CLI) | payer BC, SELFPAY ==
[2018-09-17 09:36] VITALS: BMI 14.4
[2018-09-27 11:15] VITALS: PULSE 70; PULSE 80; PULSE 84; PULSE 89; PULSE 90; PULSE 91; PULSE 94; O2SAT 89; O2SAT 90; O2SAT 91; O2SAT 92; O2SAT 93; O2SAT 96; O2SAT 97
--- NOTE | 2018-09-27 11:35 | CPS ---
Pt currently wears 2L HS and [employer] is her DME.
--- NOTE | 2018-09-27 12:24 | PCM.PSN.6M ---
PSN 6 Minute Walk Test - 6 Minute Walk Test 6 Minute Walk Test: 6 Minute Walk Test PSN:6-Minute Walk Test Start: 09/27/18 11:32 Freq: Status: Active Protocol: RESP.6MINW Document 09/27/18 11:15 [facility] (Rec: 09/27/18 11:36 [facility] [id number]) 6 Minute Walk Test Date Performed 09/27/18 Time Performed 11:15 Height 5 ft 2 in Weight: 95 lb Weight in Pounds 95.[address]: Gee Staples Assistive device used: None Pre-test Oxygen Delivery Method Room Air Pulse Ox (%) 97 Pulse Rate (60-100 beats/min) 70 Dyspnea Nilda Scale (0-10) 0.5 Exertion Nilda Scale (6-20) 6 1st minute Oxygen Delivery Method Room Air Pulse Ox (%) 93 Pulse Rate (60-100 beats/min) 84 Number of Rests Taken 0 2nd minute Oxygen Delivery Method Room Air Pulse Ox (%) 92 Pulse Rate (60-100 beats/min) 91 Number of Rests Taken 0 3rd minute Oxygen Delivery Method Room Air Pulse Ox (%) 89 Pulse Rate (60-100 beats/min) 91 Number of Rests Taken 0 4th minute Oxygen Delivery Method Room Air Pulse Ox (%) 90 Pulse Rate (60-100 beats/min) 90 Number of Rests Taken 0 5th minute Oxygen Delivery Method Room Air Pulse Ox (%) 90 Pulse Rate (60-100 beats/min) 89 Number of Rests Taken 0 Reported Symptoms Increased Work of Breathing 6th minute Oxygen Delivery Method Room Air Pulse Ox (%) 91 Pulse Rate (60-100 beats/min) 94 Number of Rests Taken 0 Reported Symptoms Increased Work of Breathing Post-test Oxygen Delivery Method Room Air Pulse Ox (%) 96 Pulse Rate (60-100 beats/min) 80 Dyspnea Nilda Scale (0-10) 2 Exertion Nilda Scale (6-20) 12 Full Laps Walked 17 Partial Lap, Number of Tiles Walked 25 Total Distance Walked (ft) 1028 09/27/18 11:35 Cardiopulmonary Services by Francine Brooks Pt currently wears 2L HS and [employer] is her DME. Initialized on 09/27/18 11:35 - END OF NOTE - Interpretation Interpretation: The patient ambulated 1028 feet over the course of 6 minutes beginning on room air without assistive devices or breaks. Pretesting oxygen saturation was noted to be 97% on room air. With ambulation, the lakisha oxygen saturation was 89%. This represents a significant exertional oxygen desaturation, consistent with a pulmonary limitation to exercise tolerance. - Recommendations Recommendations: There is no indication for the use of supplemental oxygen at this time. However, close interval follow-up is recommended, given the degree of oxygen desaturation noted during this study.
== END | disposition home or self-care (01) ==
LOC: PSN 11:00
PROVIDERS: Family Provider Family Medicine; PCP Family Medicine; Referring Provider Internal Medicine Critical Care Medicine; Visit Provider Internal Medicine Critical Care Medicine
DX: J44.9 Chronic obstructive pulmonary disease, unspecified (principal)
CPT/HCPCS: 94618

== ENCOUNTER 2018-10-12 20:51 | Emergency (ER) | payer BC, MEDICARE, SELFPAY ==
[2018-09-17 09:36] VITALS: BMI 14.4
[2018-10-12 20:51] VITALS: BP 129/68; PULSE 99; RESP 18; TEMP 31; O2SAT 100; BMI 14.4
--- NOTE | 2018-10-12 21:04 | EKG12_ITS ---
Test Reason : CP Blood Pressure : / mmHG Vent. Rate : 103 BPM Atrial Rate : 103 BPM P-R Int : 128 ms QRS Dur : 082 ms QT Int : 360 ms P-R-T Axes : 082 -24 028 degrees QTc Int : 471 ms Sinus tachycardia Otherwise normal ECG Confirmed by LOUIE HERNANDEZ ([id number]), order editor MANOJ NOYOLA ([id number]) on 10/14/2018 10:53:41 AM Referred By: Deshawn Torrez Confirmed By:LOUIE HERNANDEZ
--- NOTE | 2018-10-12 21:05 | RAD_ITS ---
STUDY: X-RAY CHEST REASON FOR EXAM: Female, 68 years old. Chest pain. History of breast cancer. TECHNIQUE: Frontal and lateral views of the chest. COMPARISON: August 10, 2018 FINDINGS: Left IJ MediPort unchanged. Normal airspace disease improved. Lungs are hyperaerated. Increased interstitial markings. There is no demonstrated pleural abnormality. Normal size heart. Normal mediastinum and magda. Normal visualized pulmonary arteries. Normal visualized aortic arch and descending thoracic aorta. Normal visualized thoracic spine. Normal visualized ribs, clavicles, and shoulders. There is no demonstrated abnormality of the visualized soft tissue structures of the upper abdomen. RAD/Chest PA and Lateral IMPRESSION: COPD. Right lower lobe airspace disease essentially resolved. Electronically Signed: Avi Martinez MD at 22:04 EDT , Service support ,
[2018-10-12 21:09] VITALS: BP 137/87; PULSE 92; PULSE 95; RESP 16; RESP 18; O2SAT 99
[2018-10-12] MEDS: Ipratropium/Albuterol Sulfate 3 ML AMPUL.NEB INHALATION (21:09)
[2018-10-12] MEDS: 0.9% Normal Saline 1,000 ML 1000 ML IV (21:17)
[2018-10-12] MEDS: Ondansetron 4 MG/2 ML Vial IV (21:18)
[2018-10-12] MEDS: Morphine 4 MG/ML Syringe IV (21:19)
[2018-10-12 21:20] LABS: Absolute Lymphocyte Count 1.64 X10^3/ul (0.83-4.51); Absolute Neutrophil Count 11.6 X10^3/uL (2.0-7.7); Basophil# 0.05 X10^3/uL; Basophil% 0.4 % (0-1); Eosinophil# 0.03 X10^3/uL; Eosinophils% 0.2 % (0-5); Hematocrit 41.5 % (37-47); Hemoglobin 13.6 g/dl (12.0-15.0); Lymphocyte # 1.64 X10^3/ul (4.0); Lymphocyte % 11.5 % (19-41); Mean Corp Hgb Conc 32.8 g/gl (32-36); Mean Corpuscular Hgb 29.8 pg (27.0-32.0); Monocyte# 0.88 X10^3/uL; Monocyte% 6.2 % (0-10); Neutrophil % 81.5 % (47-70); Platelet Count 221 K/mm3 (150-450); RBC Distribution Width CV 14.6 % (11.6-14.6); RBC Distribution Width SD 48.5 fl (35.1-43.9); Red Blood Count 4.56 M/mm3 (4.2-5.4); White Blood Count 14.2 K/mm3 (4.4-11.0)
[2018-10-12 21:30] LABS: POSITIVE COUNT NO; POSITIVE DIFFERENTIAL NO; POSITIVE MORPHOLOGY NO
[2018-10-12 22:16] VITALS: BP 102/62; PULSE 77; RESP 18; O2SAT 100
[2018-10-12 22:19] LABS: Anion Gap 3 (5-15); BUN 19 mg/dL (7-18); Calcium,Total 9.2 mg/dL (8.5-10.1); Chloride 109 mmol/L (98-107); Creatinine, Serum 0.63 mg/dL (0.55-1.02); EST Glomerular Filtration Rate 100 mL/min (>60); Est Glom Filt Rate - Afr Amer 121 mL/min (>60); Estimated Creatinine Clearance 33.29 ml/min; Glucose 97 mg/dL (74-106); Sodium Level 139 mmol/L (136-145)
--- NOTE | 2018-10-12 22:37 | ED.VISSUMM ---
- ER Visit Summary Date of Service: 10/12/18 Chief Complaint: Chest pain History of Present Illness: The patient is a [address] Torrez and Dr. Staples. She reports that she has right-sided chest pain began 4:00 this afternoon while she was at rest. Is been a constant pain for the past 5 hours. She describes it as sharp. Is 9 out of 10 in severity currently and at worst. Is worsened by movement of her arm or breathing. She is relieved by nothing. She reports that she has been very short of breath with this. She has had similar symptoms previously with pleurisy. She denies any nausea, vomiting, or diaphoresis. She states that she has a chronic cough that is unchanged. No fever or chills. Physical Examination: Vitals: Stable. Afebrile. General: Well-nourished and well-developed. Head: Normocephalic atraumatic. Neck: Supple, no lymphadenopathy. No JVD. Nontender. Cardiovascular: Regular rate and rhythm. No murmurs. Respiratory: No respiratory distress. Clear to auscultation bilaterally. Poor air movement. Abdominal: Soft, nontender, nondistended, normal bowel sounds. No guarding, rebound, or peritoneal signs. Back: Nontender. Extremities: Nontender, no edema. Skin: Normal color, no rash. Neurologic: Alert and oriented ?3. Cranial nerves II through XII are intact. Normal strength and sensation. Psych: Normal affect. Test Results: EKG is sinus tachycardia [address] changes. Is unchanged from July of this year. Troponin is negative. Chem-7 is more for chloride 109 BUN of 19. CBC is more for a white count of 14.2 with 82 segmented neutrophils and lymphocytes of 12. Chest x-ray shows chronic changes. Emergency Department Course and Treatment: Patient was treated with a dose of morphine and Zofran IV. She was given albuterol Atrovent aerosol. She is resting comfortably. Treatment Plan: Patient's pain is very atypical. Is been constant for the past 5 hours with no change in her EKG or her troponin. Pain is also reproduced with movement or deep breaths. She has no personal or family history of DVT. No recent travel. No ankle swelling or calf pain. She will be discharged instructions to use ibuprofen and Bowler for pain. Follow-up with her primary care physician in 1-2 days if not improving. Return to the emergency department for any worsening symptoms. Disposition: To home in improved and stable condition. Impression: 1. Atypical chest pain. 2. JEREMY score of 1. This note was generated with [employer] dictation software. It may contain incorrect words, spelling, and punctuation that were not noted in review of the chart prior to signing ED Disposition - Plan for ED Patient: Instructions: ED Chest Pain Atypical Unkn Cause Prescriptions: Hydrocodone Bitart/Apap 5-325 [Bowler 5MG-325MG] 1 tablet PO Q4H PRN PRN 2 Days #10 tablet PRN Reason: Pain Referrals: Deshawn Torrez MD [Primary Care Provider] - 1-2 Days if not improving
[2018-10-12] MEDS: HYDROcodone Bitartrate/Apap 5/325 Tablet PO (22:58)
[2018-10-12 23:01] VITALS: BP 106/60; PULSE 87; RESP 18; O2SAT 100
== END 2018-10-12 23:03 | disposition home or self-care (01) ==
LOC: ED 21:17
PROVIDERS: Emergency Provider Emergency Medicine; Family Provider Family Medicine; PCP Family Medicine
DX: R07.89 Other chest pain (principal); J44.9 Chronic obstructive pulmonary disease, unspecified; Z72.0 Tobacco use; Z79.51 Long term (current) use of inhaled steroids
CPT/HCPCS: 36591; 71046; 80048; 84484; 85025; 93005; 94640; 96361; 96374; 96375; 99283; J7030; A4216; J2405

== ENCOUNTER → 2018-12-06 | Outpatient (CLI) | payer BC, SELFPAY ==
[2018-12-06 09:41] VITALS: BMI 14.1
[2018-12-06 11:20] LABS: Allen Test POS; Base Excess 0 mmol/L (-2 to +2); Bicarbonate 24.7 mmol/L (22-26); Blood Gas Specimen Type ART; O2 Delivery Device Room Air; PO2 73 mmHG (75-100); SITE L Brachial; SO2 95 % (95-99); Time Given 1113; Total Carbon Dioxide 26 mmol/L; pCO2 39.7 mmHg (35-45)
== END | disposition home or self-care (01) ==
LOC: LAB 10:39 → PSN 10:50
PROVIDERS: Family Provider Family Medicine; PCP Family Medicine; Referring Provider Nurse Practitioner Acute Care; Visit Provider Nurse Practitioner Acute Care
DX: J44.9 Chronic obstructive pulmonary disease, unspecified (principal)
CPT/HCPCS: 36600; 82803

== ENCOUNTER → 2019-02-15 | Outpatient (CLI) | payer BC, SELFPAY ==
[2018-12-06 09:41] VITALS: BMI 14.1
--- NOTE | 2019-02-15 15:45 | CT_ITS ---
STUDY: LOW DOSE CT LUNG CANCER SCREENING REASON FOR EXAM: Female, 68 years old. 100 pack-year smoking history. History of breast cancer with double mastectomy. RADIATION DOSAGE (If Supplied By Facility): CTDIvol = ( 2.01 ) mGy, DLP = ( 74.49 ) mGycm TECHNIQUE: No contrast was administered. Low dose technique was utilized (average mAS-38 and kVp 120). 1.25 mm axial source images with a slice interval of 1.25-mm were reconstructed in lung windows. 2.5 mm axial source images with a slice interval of 2.5-mm were reconstructed in lung windows. 5.0 mm axial source images with a slice interval of 5.0-mm were reconstructed in soft tissue windows. Nodule measured using lung windows on PACS and/or independent workstation with automated measurement of minimum and maximum diameter. Nodule measurement reported as average diameter rounded to the nearest whole number. Growth is defined as an increase ins size of greater than 1.5 mm. COMPARISON: Chest, October 12, 2018. CT of the chest, November 17, 2017. NODULES: Nodule #: 1 Density: Solid Lung location: Right upper lobe: Along the oblique fissure. Location in series: Series Number: 2 Image: 71 Size - D1 x D2 mm: 5 x 5 mm: 5 mm average diameter Margin: Smooth Shape: Triangular Calcification: No Fat: No Temporal comparison: Stable Total lung nodules (excluding granulomas): 1 Emphysema: There is diffuse emphysematous changes of the lungs. Patent umbilical nodule may represent an area of focal scarring with tenting of the oblique fissure. Minimal scarring is also seen medially in the left upper lobe unchanged from prior study. Endobronchial lesion: None Aorta: Minimal atherosclerotic changes without aneurysm. Coronary arteries: There is evidence of coronary artery calcifications. Heart: Normal Pulmonary artery: Mediastinal nodes: Not Other chest and abdominal findings: There are degenerative changes of the thoracic spine. There is a left jugular Port-A-Cath. There is evidence of bilateral mastectomy. CT/Low Dose CT Lung Screening IMPRESSION: Lung-RADS category 2 - Continue annual screening with LDCT in 12 months. IMPORTANT NOTES FOR USE: ACR Lung-RADS Version 1.0 Assessment Categories Release Date: October 17, 2013 Category: Coded 0-4 bases on nodule(s) with highest degree of suspicion. Negative screen is defined as categories 1 and 2; a positive screen is defined as categories 3 and 4. Category 3 and 4A nodules that are unchanged on interval CT should be coded as category 2, and individuals returned to screening in 12 months. Category 4X: Category 3 or 4 nodules with additional imaging findings that increase the suspicion of lung cancer, such as spiculation, GGN that doubles in size in 1 year, enlarged lymph notes, etc. Category Modifiers: S (significant finding unrelated to lung cancer) and C (prior history of treated lung cancer) may be added to the 0-4 Lung-RADS Electronically Signed: Rhett Becerra DO at 18:44 EDT Tel [phone], Service support ,
== END | disposition home or self-care (01) ==
LOC: CT 15:44
PROVIDERS: Family Provider Family Medicine; PCP Family Medicine; Referring Provider Nurse Practitioner Acute Care; Visit Provider Nurse Practitioner Acute Care
DX: F17.200 Nicotine dependence, unspecified, uncomplicated (principal); J44.9 Chronic obstructive pulmonary disease, unspecified; Z12.2 Encounter for screening for malignant neoplasm of respiratory organs
CPT/HCPCS: G0297

== ENCOUNTER → 2019-03-03 | Outpatient (CLI) | payer BC, SELFPAY ==
[2018-12-06 09:41] VITALS: BMI 14.1
[2019-02-16 12:58] VITALS: BMI 13.8
--- NOTE | 2019-03-04 08:36 | PFT ---
INTRODUCTION: The patient is a 68-year-old female that presents for pulmonary function studies secondary to a diagnosis of COPD. Respiratory therapy reports good patient effort. Bronchodilators were used during testing. INTERPRETATION: Forced expiration spirometry demonstrates the presence of a very severe large airways obstructive ventilatory defect. There was no significant response to aerosolized bronchodilators. Spirograms are of fair quality and do not plateau indicating slow emptying of the lungs. Body plethysmography was performed and reveals an elevated TLC and RV, indicative of underlying hyperinflation and air trapping. Diffusing capacity by single breath CO was significantly reduced at 42% of predicted. There has been little change in the patient's pulmonary function studies since March 2018. IMPRESSION: Irreversible very severe large airways obstructive ventilatory defect with associated hyperinflation, air trapping and symmetric reduction in diffusing capacity, consistent with end-stage COPD.
== END | disposition home or self-care (01) ==
LOC: PSN 09:56
PROVIDERS: Family Provider Family Medicine; PCP Family Medicine; Referring Provider Nurse Practitioner Acute Care; Visit Provider Nurse Practitioner Acute Care
DX: J44.9 Chronic obstructive pulmonary disease, unspecified (principal)
CPT/HCPCS: 94060; 94726; 94729

== ENCOUNTER → 2020-01-30 12:54 | Outpatient (CLI) | payer BC, SELFPAY ==
[2019-08-03 09:31] VITALS: BMI 14.4
[2020-01-18 13:58] VITALS: BMI 13.8
--- NOTE | 2020-01-31 14:50 | PFT ---
INTRODUCTION: The patient is a 69-year-old female that presents for pulmonary function studies secondary to a diagnosis of COPD. Respiratory therapy reports good patient effort. Bronchodilators were used during testing. INTERPRETATION: Forced expiration spirometry demonstrates the presence of a severe large airways obstructive ventilatory defect. There was a significant response to aerosolized bronchodilators noted, based upon change in FVC. Spirograms are of fair quality and do not plateau indicating slow emptying of the lungs. Body plethysmography was performed and reveals an elevated TLC and RV, indicative of underlying hyperinflation and air trapping. Diffusing capacity by single breath CO is reduced at 51% of predicted. IMPRESSION: Partially reversible severe large airways obstructive ventilatory defect with associated hyperinflation, air trapping and symmetric reduction in diffusing capacity.
== END ==
PROVIDERS: PCP Family Medicine; Referring Provider Nurse Practitioner Acute Care; Visit Provider Nurse Practitioner Acute Care
DX: J44.9 Chronic obstructive pulmonary disease, unspecified (principal)
CPT/HCPCS: 94060; 94726; 94729

== ENCOUNTER → 2020-01-31 12:25 | Outpatient (CLI) | payer BC, SELFPAY ==
[2019-08-03 09:31] VITALS: BMI 14.4
[2020-01-18 13:58] VITALS: BMI 13.8
[2020-01-31 13:03] VITALS: PULSE 67; PULSE 71; PULSE 77; PULSE 84; PULSE 87; PULSE 93; PULSE 95; PULSE 96; O2SAT 91; O2SAT 94; O2SAT 96; O2SAT 97; O2SAT 98
--- NOTE | 2020-01-31 13:10 | CPS ---
Patient arrived for testing on RA and begin test on RA. Patient required O2 at the 3 min tess. The patient required 2L throughout the rest of the test. Maryann Lea RRT
--- NOTE | 2020-02-01 14:30 | PCM.PSN.6M ---
PSN 6 Minute Walk Test - 6 Minute Walk Test 6 Minute Walk Test: 6 Minute Walk Test PSN:6-Minute Walk Test Start: 01/31/20 13:03 Freq: Status: Active Protocol: RESP.6MINW Document 01/31/20 13:03 BIB (Rec: 01/31/20 13:13 BIB [id number]) 6 Minute Walk Test Date Performed 01/31/20 Time Performed 12:30 Height 5 ft 4 in Weight: 80 lb 5.917 oz Weight in Pounds 80.[address]: Swetha Lawrence Assistive device used: None Pre-test Oxygen Delivery Method Room Air Pulse Ox (%) 94 Pulse Rate (60-100 beats/min) 71 Dyspnea Nilda Scale (0-10) 0 Exertion Nilda Scale (6-20) 6 1st minute Oxygen Delivery Method Room Air Pulse Ox (%) 91 Pulse Rate (60-100 beats/min) 77 2nd minute Oxygen Delivery Method Room Air Pulse Ox (%) 94 Pulse Rate (60-100 beats/min) 84 3rd minute Oxygen Delivery Method Room Air Pulse Ox (%) 96 Pulse Rate (60-100 beats/min) 87 Dyspnea Nilda Scale (0-10) 3 Exertion Nilda Scale (6-20) 11 4th minute Oxygen Flow Rate (L/min) (L/min) 2 Oxygen Delivery Method Nasal Cannula Pulse Ox (%) 96 Pulse Rate (60-100 beats/min) 93 5th minute Oxygen Flow Rate (L/min) (L/min) 2 Oxygen Delivery Method Nasal Cannula Pulse Ox (%) 96 Pulse Rate (60-100 beats/min) 95 6th minute Oxygen Flow Rate (L/min) (L/min) 2 Oxygen Delivery Method Nasal Cannula Pulse Ox (%) 97 Pulse Rate (60-100 beats/min) 96 Dyspnea Nilda Scale (0-10) 2 Exertion Nilda Scale (6-20) 11 Post-test Oxygen Flow Rate (L/min) (L/min) 2 Oxygen Delivery Method Nasal Cannula Pulse Ox (%) 98 Pulse Rate (60-100 beats/min) 67 Full Laps Walked 17 Partial Lap, Number of Tiles Walked 0 Total Distance Walked (ft) 1003 01/31/20 13:10 Cardiopulmonary Services by Maryann Champion Patient arrived for testing on RA and begin test on RA. Patient required O2 at the 3 min tess. The patient required 2L throughout the rest of the test. Maryann Lea RRT Initialized on 01/31/20 13:10 - END OF NOTE - Interpretation Interpretation: The patient ambulated 1003 feet over the course of 6 minutes beginning on room air without assistive devices or breaks. Pretesting oxygen saturation was noted to be 94% on room air. With ambulation, the lakisha oxygen saturation was 86%. 2 L/min of supplemental oxygen was applied, and the patient was able to complete the remainder of the test while maintaining appropriate oxygen saturations. - Recommendations Recommendations: 2 L/min of supplemental oxygen should be utilized with exertion.
== END ==
PROVIDERS: PCP Family Medicine; Referring Provider Nurse Practitioner Acute Care; Visit Provider Nurse Practitioner Acute Care
DX: J44.9 Chronic obstructive pulmonary disease, unspecified (principal)
CPT/HCPCS: 94618

== ENCOUNTER → 2020-05-09 14:21 | Outpatient (CLI) | payer BC, SELFPAY ==
[2020-01-18 13:58] VITALS: BMI 13.8
--- NOTE | 2020-05-09 14:25 | CT_ITS ---
STUDY: LOW DOSE CT LUNG CANCER SCREENING REASON FOR EXAM: Female, 69 years old. 1PPD X 57 YEARS. COPD/EMPHYSEMA. BREAST CA WITH BILATERAL MASTECTOMIES RADIATION DOSAGE (If Supplied By Facility): CTDIvol = ( 1.70 ) mGy, DLP = ( 62.31 ) mGycm TECHNIQUE: No contrast was administered. Low dose technique was utilized (average mAS-38 and kVp 120). 1.25 mm axial source images with a slice interval of 1.25-mm were reconstructed in lung windows. 2.5 mm axial source images with a slice interval of 2.5-mm were reconstructed in lung windows. 5.0 mm axial source images with a slice interval of 5.0-mm were reconstructed in soft tissue windows. Nodule measured using lung windows on PACS and/or independent workstation with automated measurement of minimum and maximum diameter. Nodule measurement reported as average diameter rounded to the nearest whole number. Growth is defined as an increase ins size of greater than 1.5 mm. COMPARISON: Comparison is made with prior study dated 02/15/2019. NODULES: Emphysema: Marked degree of diffuse emphysema with bullous formation worse in the upper lobes. Stable scarring along the posterior medial aspect of the right upper lobe. Mild linear scarring in the anterior medial aspect of the right middle lobe. Endobronchial lesion: None Aorta: Atherosclerotic calcific plaques of the thoracic aorta. Coronary arteries: Coronary artery calcification. Heart: Unremarkable. Pulmonary artery: Unremarkable. Mediastinal nodes: Unremarkable. Other chest and abdominal findings: CT/Low Dose CT Lung Screening IMPRESSION: Lung-RADS category 2 - Continue annual screening with LDCT in 12 months. IMPORTANT NOTES FOR USE: ACR Lung-RADS Version 1.0 Assessment Categories Release Date: October 17, 2013 Category: Coded 0-4 bases on nodule(s) with highest degree of suspicion. Negative screen is defined as categories 1 and 2; a positive screen is defined as categories 3 and 4. Category 3 and 4A nodules that are unchanged on interval CT should be coded as category 2, and individuals returned to screening in 12 months. Category 4X: Category 3 or 4 nodules with additional imaging findings that increase the suspicion of lung cancer, such as spiculation, GGN that doubles in size in 1 year, enlarged lymph notes, etc. Category Modifiers: S (significant finding unrelated to lung cancer) and C (prior history of treated lung cancer) may be added to the 0-4 Lung-RADS Electronically Signed: Calin Lagos, at 15:16 EST , Service support ,
== END ==
PROVIDERS: PCP Family Medicine; Referring Provider Nurse Practitioner Acute Care; Visit Provider Nurse Practitioner Acute Care
DX: F17.210 Nicotine dependence, cigarettes, uncomplicated (principal)
CPT/HCPCS: G0297

== ENCOUNTER → 2021-03-27 13:21 | Outpatient (CLI) | payer BC, SELFPAY ==
[2021-01-02 05:41] VITALS: BMI 13.7
--- NOTE | 2021-03-29 14:47 | PFT ---
INTRODUCTION: The patient is a 70-year-old female that presents for pulmonary function studies secondary to a diagnosis of COPD. Respiratory therapy reported good patient effort. Bronchodilators were used during testing. INTERPRETATION: Forced expiration spirometry demonstrates the presence of a very severe large airways obstructive ventilatory defect. There was a significant response to aerosolized bronchodilators. Spirograms are of fair quality but do not plateau indicating slow emptying of the lungs. Body plethysmography was performed and revealed an elevated TLC and RV, indicative of underlying hyperinflation and air trapping. Diffusing capacity by single breath CO is reduced at 38% of predicted. IMPRESSION: Partially reversible very severe large airways obstructive ventilatory defect with associated hyperinflation, air trapping and symmetric reduction in diffusing capacity.
== END ==
PROVIDERS: PCP Family Medicine; Referring Provider Internal Medicine Critical Care Medicine; Visit Provider Internal Medicine Critical Care Medicine
DX: J44.9 Chronic obstructive pulmonary disease, unspecified (principal); R64 Cachexia; F17.210 Nicotine dependence, cigarettes, uncomplicated
CPT/HCPCS: 94060; 94726; 94729

== ENCOUNTER → 2021-03-29 12:25 | Outpatient (CLI) | payer BC, SELFPAY ==
[2021-01-02 05:41] VITALS: BMI 13.7
[2021-03-29 12:30] VITALS: PULSE 100; PULSE 70; PULSE 79; PULSE 95; PULSE 96; PULSE 98; PULSE 99; O2SAT 90; O2SAT 91; O2SAT 93; O2SAT 95; O2SAT 97
--- NOTE | 2021-03-31 07:52 | PCM.PSN.6M ---
PSN 6 Minute Walk Test 6 Minute Walk Test 6 Minute Walk Test: 6 Minute Walk Test PSN:6-Minute Walk Test Start: 03/29/21 12:49 Freq: Status: Active Protocol: RESP.6MINW Document 03/29/21 12:30 HJ (Rec: 03/29/21 12:52 [id number]) 6 Minute Walk Test Date Performed 03/29/21 Time Performed 12:30 Height 5 ft 4 in Weight: 44.906 kg Weight in Pounds 99.[address]: Gee Staples FIO2 (% Oxygen) 21 Assistive device used: None Pre-test Oxygen Delivery Method Room Air Pulse Ox (%) 97 Pulse Rate (60-100 beats/min) 70 Dyspnea Nilda Scale (0-10) 0 Exertion Nilda Scale (6-20) 6 1st minute Oxygen Delivery Method Room Air Pulse Ox (%) 93 Pulse Rate (60-100 beats/min) 95 2nd minute Oxygen Delivery Method Room Air Pulse Ox (%) 91 Pulse Rate (60-100 beats/min) 96 3rd minute Oxygen Delivery Method Room Air Pulse Ox (%) 90 Pulse Rate (60-100 beats/min) 98 4th minute Oxygen Delivery Method Room Air Pulse Ox (%) 91 Pulse Rate (60-100 beats/min) 99 5th minute Oxygen Delivery Method Room Air Pulse Ox (%) 90 Pulse Rate (60-100 beats/min) 100 6th minute Oxygen Delivery Method Room Air Pulse Ox (%) 90 Pulse Rate (60-100 beats/min) 100 Post-test Oxygen Delivery Method Room Air Pulse Ox (%) 95 Pulse Rate (60-100 beats/min) 79 Dyspnea Nilda Scale (0-10) 4 Exertion Nilda Scale (6-20) 13 Full Laps Walked 20 Partial Lap, Number of Tiles Walked 0 Total Distance Walked (ft) 1180 Interpretation Interpretation: The patient ambulated 1180 feet over the course of 6 minutes beginning on room air without assistive devices. Pretesting oxygen saturation was noted to be 97% on room air. With ambulation, the lakisha oxygen saturation was 90%. This represents a significant exertional oxygen desaturation, consistent with a pulmonary limitation to exercise tolerance. Recommendations Recommendations: There is no indication for the use of supplemental oxygen at this time. However, close interval follow-up is recommended, given the degree of oxygen desaturation noted during the study.
== END ==
PROVIDERS: PCP Family Medicine; Referring Provider Internal Medicine Critical Care Medicine; Visit Provider Internal Medicine Critical Care Medicine
DX: J44.9 Chronic obstructive pulmonary disease, unspecified (principal); R64 Cachexia; F17.210 Nicotine dependence, cigarettes, uncomplicated
CPT/HCPCS: 94618

== ENCOUNTER → 2021-05-13 12:37 | Outpatient (CLI) | payer BC, SELFPAY ==
--- NOTE | 2021-05-13 12:55 | CT_ITS ---
STUDY: LOW DOSE CT LUNG CANCER SCREENING REASON FOR EXAM: Female, 70 years old. smoker and gt; 40 pack years RADIATION DOSAGE (If Supplied By Facility): CTDIvol = ( 2.01 ) mGy, DLP = ( 76.00 ) mGycm TECHNIQUE: No contrast was administered. Low dose technique was utilized (average mAS-38 and kVp 120). 1.25 mm axial source images with a slice interval of 1.25-mm were reconstructed in lung windows. 2.5 mm axial source images with a slice interval of 2.5-mm were reconstructed in lung windows. 5.0 mm axial source images with a slice interval of 5.0-mm were reconstructed in soft tissue windows. Nodule measured using lung windows on PACS and/or independent workstation with automated measurement of minimum and maximum diameter. Nodule measurement reported as average diameter rounded to the nearest whole number. Growth is defined as an increase ins size of greater than 1.5 mm. COMPARISON: 05/09/2020 NODULES: Bilateral upper lobe pleural/parenchymal fibrotic scarring. Focal nodular component along medial right upper lobe measuring 5 x 6 mm on image 74 of series 2 is stable (since 02/15/2019), likely related to fibrotic band. Operative changes of the medial left upper lobe, stable. Emphysema: Severe centrilobular emphysema with subpleural emphysematous blebs. Endobronchial lesion: None Aorta: Atherosclerosis but no evidence of aneurysm. Coronary arteries: Atherosclerosis Heart: Unchanged size Pulmonary artery: Unremarkable for unopacified technique. Mediastinal nodes: No adenopathy Other chest and abdominal findings: No significant CT/Low Dose CT Lung Screening IMPRESSION: Lung-RADS category 2 - Continue annual screening with LDCT in 12 months. IMPORTANT NOTES FOR USE: ACR Lung-RADS Version 1.1 Assessment Categories Release Date: 2018 Category: Coded 0-4 bases on nodule(s) with highest degree of suspicion. Negative screen is defined as categories 1 and 2; a positive screen is defined as categories 3 and 4. Category 3 and 4A nodules that are unchanged on interval CT should be coded as category 2, and individuals returned to screening in 12 months. Category 4X: Category 3 or 4 nodules with additional imaging findings that increase the suspicion of lung cancer, such as spiculation, GGN that doubles in size in 1 year, enlarged lymph notes, etc. Category Modifiers: S (significant finding unrelated to lung cancer) Electronically Signed: Mg Apple MD (Brooks) at 9:46 EST , Service support ,
== END ==
PROVIDERS: PCP Family Medicine; Referring Provider Nurse Practitioner Acute Care; Visit Provider Nurse Practitioner Acute Care
DX: F17.210 Nicotine dependence, cigarettes, uncomplicated (principal)
CPT/HCPCS: 71271

== ENCOUNTER → 2022-05-05 | Outpatient (CLI) | payer BC, SELFPAY ==
--- NOTE | 2022-05-05 10:17 | RAD_ITS ---
STUDY: X-RAY CHEST REASON FOR EXAM: Female, 71 years old. R CHEST PAIN TECHNIQUE: Frontal and lateral views of the chest. COMPARISON: CT chest May 13, 2021 and chest x-ray October 12, 2018 FINDINGS: Left IJ MediPort has been removed. Lungs are hyper aerated. Increased interstitial markings at the right lung base. The lungs are clear and expanded. There is no demonstrated pleural abnormality. Normal size heart. Normal mediastinum and magda. Normal visualized pulmonary arteries. Normal visualized aortic arch and descending thoracic aorta. Normal visualized thoracic spine. Normal visualized ribs, clavicles, and shoulders. There is no demonstrated abnormality of the visualized soft tissue structures of the upper abdomen. RAD/Chest PA and Lateral IMPRESSION: Right lower lobe interstitial infiltrate, age indeterminate. COPD. Electronically Signed: Avi Martinez MD at 20:03 EST ,
== END | disposition home or self-care (01) ==
PROVIDERS: PCP Family Medicine; Referring Provider Family Medicine; Visit Provider Family Medicine
DX: R05.9 Cough, unspecified (principal); R07.9 Chest pain, unspecified
CPT/HCPCS: 71046

== ENCOUNTER → 2022-05-19 | Outpatient (CLI) | payer BC, SELFPAY ==
--- NOTE | 2022-05-19 12:50 | CT_ITS ---
STUDY: LOW DOSE CT LUNG CANCER SCREENING REASON FOR EXAM: Female, 71 years old. Smoking and gt; 40 pack years RADIATION DOSAGE (If Supplied By Facility): CTDIvol = ( 1.08 ) mGy, DLP = ( 39.56 ) mGycm TECHNIQUE: No contrast was administered. Low dose technique was utilized (average mAS-38 and kVp 120). 1.25 mm axial source images with a slice interval of 1.25-mm were reconstructed in lung windows. 2.5 mm axial source images with a slice interval of 2.5-mm were reconstructed in lung windows. 5.0 mm axial source images with a slice interval of 5.0-mm were reconstructed in soft tissue windows. COMPARISON: Comparison is made with prior study dated 05/13/2021. NODULES: Stable 7 mm nodule in the medial right upper lobe as seen on axial image #72. Emphysema: Hyperinflation and severe emphysematous changes worse in the upper lobes with stable bullous formation more prominent in the right upper lobe and irregular scarring in the posterior lateral aspect of the right upper lobe. Endobronchial lesion: None Aorta: Atherosclerotic calcific plaques. CORONARY ARTERIES: Coronary artery calcification is seen. Heart: Unremarkable Pulmonary artery: Unremarkable Mediastinal nodes: Unremarkable Other chest and abdominal findings: CT/Low Dose CT Lung Screening IMPRESSION: Lung-RADS category 2 - Continue annual screening with LDCT in 12 months. IMPORTANT NOTES FOR USE: ACR Lung-RADS Version 1.1 Assessment Categories Release Date: 2018 Category: Coded 0-4 bases on nodule(s) with highest degree of suspicion. Negative screen is defined as categories 1 and 2; a positive screen is defined as categories 3 and 4. Category 3 and 4A nodules that are unchanged on interval CT should be coded as category 2, and individuals returned to screening in 12 months. Category 4X: Category 3 or 4 nodules with additional imaging findings that increase the suspicion of lung cancer, such as spiculation, GGN that doubles in size in 1 year, enlarged lymph notes, etc. Category Modifiers: S (significant finding unrelated to lung cancer) Electronically Signed: Calin Lagos MD at 15:41 EST ,
== END | disposition home or self-care (01) ==
LOC: CT 12:49
PROVIDERS: PCP Family Medicine; Visit Provider Nurse Practitioner Acute Care
DX: I70.0 Atherosclerosis of aorta (principal); I25.10 Atherosclerotic heart disease of native coronary artery without angina pectoris; R91.8 Other nonspecific abnormal finding of lung field; F17.210 Nicotine dependence, cigarettes, uncomplicated
CPT/HCPCS: 71271

== ENCOUNTER 2022-11-25 16:45 | Inpatient (IN) | payer BC, MEDICARE, SELFPAY ==
[2022-11-25] VITALS (14 sets, daily range): BP systolic 100–131; BP diastolic 56–82; PULSE 83–125; RESP 17–28; TEMP 36.6–38.2; O2SAT 94–100; BMI 13.8; BMI 13.2
--- NOTE | 2022-11-25 16:54 | EKG12_ITS ---
Test Reason : CP Blood Pressure : / mmHG Vent. Rate : 114 BPM Atrial Rate : 114 BPM P-R Int : 120 ms QRS Dur : 080 ms QT Int : 314 ms P-R-T Axes : 083 -86 239 degrees QTc Int : 432 ms Sinus tachycardia Right atrial enlargement Left anterior fascicular block Minimal voltage criteria for LVH, may be normal variant ( Dalhart product ) Anterior infarct , age undetermined Abnormal ECG Confirmed by AMPARO ELIAS, EDEN ([id number]), editor house organ MANOJ NOYOLA ([id number]) on 11/26/2022 9:41:09 AM Referred By: Confirmed By:EDEN CHRISTENSEN MD
[2022-11-25 17:31] LABS: Absolute Neutrophil Count 17.3 X10^3/uL (2.0-7.7); Basophil# 0.05 X10^3/uL; Basophil% 0.3 % (0-1); Hematocrit 43.8 % (37-47); Hemoglobin 14.4 g/dL (12.0-15.0); Lymphocyte % 4.2 % (19-41); Mean Corp Hgb Conc 32.9 g/dL (32-36); Mean Corpuscular Hgb 30.2 pg (27.0-32.0); Mean Corpuscular Volume 91.8 fL (81-99); Mean Platelet Vol. 8.7 fl (6.2-12.0); Monocyte# 0.78 X10^3/uL; Monocyte% 4.1 % (0-10); NRBC Flagged by Analyzer 0 % (0-5); Neutrophil # 17.32 X10^3/uL (2.7-7.7); Neutrophil % 90.8 % (47-70); Platelet Count 246 K/mm3 (150-450); RBC Distribution Width CV 13.2 % (11.6-14.6); RBC Distribution Width SD 44.9 fl (35.1-43.9); Red Blood Count 4.77 M/mm3 (4.2-5.4); White Blood Count 19.1 K/mm3 (4.4-11.0)
--- NOTE | 2022-11-25 17:43 | EDS_ITS ---
HPI History of Present Illness Chief Complaint: Chest Pain Narrative Narrative: 72-year-old female past medical history of COPD, wears 5 L of oxygen per nasal cannula at all times presents with right-sided chest pain and shortness of breath that she has had since this morning. She denies any fevers but states she has felt chilled. She has an occasional productive cough. She states that the pain in her right chest and shortness of breath feels similar to when she had pneumonia, or pleurisy. She gets these often. She states her last steroid use was a few months ago. She denies any leg swelling, no exacerbating or alleviating factors. [facility] Medical History Cataract Collapsed lung COPD (chronic obstructive pulmonary disease) Osteoporosis Pleurisy Port placement VATS bullectomy/doxy peurodesis (left) Visual disturbances, right eye Home Medications ipratropium 0.5 mg-albuterol 3 mg (2.5 mg base)/3 mL nebulization soln 3 ml inhalation Q4H PRN PRN SOB &/OR WHEEZING #180 mL 08/28/20 [Rx Last Taken 11/25/22] albuterol sulfate 90 mcg/actuation aerosol inhaler (Ventolin HFA) 2 puff inhalation Q4H PRN shortness of breath or wheezing #18 grams 06/03/22 [Rx Last Taken 11/25/22] budesonide 160 mcg-glycopyr 9 mcg-formot 4.8 mcg/actuation HFA inhaler (Breztri Aerosphere) 2 inh inhalation BID #10.7 grams 06/03/22 [Rx Last Taken 11/25/22] Allergy/AdvReac Type Severity Reaction Status Date / Time No Known Allergies Allergy Verified 06/03/22 14:14 Family History Mother Hypoglycemia Neuropathy Thyroid disorder Hypertension Heart disease Diverticulitis Father COPD (chronic obstructive pulmonary disease) Surgical History History of bilateral mastectomy History of breast biopsy History of cataract extraction History of exploratory laparotomy Social History Smoking Status: Heavy Smoker (>10/day) alcohol intake: never substance use type: does not use ROS ROS ED ROS Narrative Constitutional: No fever, no rigors but feels chilled. HEENT: No sore throat. No neck pain. No loss of vision. No rhinorrhea. Cardiovascular: Right-sided chest pain. No palpitations. No pedal edema. Respiratory: Occasional productive cough, positive shortness of breath. Abdominal: No abdominal pain. No nausea. No vomiting. Genitourinary: No dysuria. No hematuria. Musculoskeletal: No myalgias. No arthralgias. Neurologic: No headaches. No dizziness. No lightheadedness. Skin: No rash. No change in color. Psychiatric: No depression. No anxiety. EXAM Physical Exam Narrative Exam Narrative: Afebrile. Vital signs noted. HEENT: Normocephalic. Atraumatic. PERRL, EOMI. Neck soft and supple. No point tenderness or step off. Cardiovascular: Regular rate and rhythm. No murmurs, rubs, or gallops appreciated. Respiratory: No tachypnea. Decreased breath sounds bilateral bases. Gastrointestinal: Abdomen soft, nontender, with normoactive bowel sounds. No rebound or guarding. Neurological: Awake. Alert. Nonfocal, nonlateralizing. Skin: No rash. Normal color. No pallor. Musculoskeletal: No pedal edema. Full range of motion extremities. Const Vital Signs: 11/25/22 16:47 11/25/22 16:48 11/25/22 17:26 Temperature 97.8 F Temperature Source Temporal Pulse Rate 125 H Respiratory Rate 28 H Respiratory Effort Respiratory Pattern Blood Pressure 131/71 H Blood Pressure Mean 91 Pulse Ox 97 100 Oxygen Delivery Method Nasal Cannula Nasal Cannula Oxygen Flow Rate (L/min) 5 5 11/25/22 17:27 11/25/22 17:53 11/25/22 17:46 Temperature Temperature Source Pulse Rate 107 H 108 H Respiratory Rate 20 H 21 H Respiratory Effort Short of Breath Respiratory Pattern Tachypnea Blood Pressure 112/61 Blood Pressure Mean 78 Pulse Ox 94 Oxygen Delivery Method Nasal Cannula Oxygen Flow Rate (L/min) 2 11/25/22 18:00 11/25/22 18:33 11/25/22 19:00 Temperature 100.7 F H Temperature Source Oral Pulse Rate 97 Respiratory Rate 19 H Respiratory Effort Respiratory Pattern Blood Pressure 105/82 H Blood Pressure Mean 89 Pulse Ox 94 96 Oxygen Delivery Method Nasal Cannula Nasal Cannula Oxygen Flow Rate (L/min) 3 3 11/25/22 19:00 11/25/22 20:00 Temperature 100.7 F H 100.5 F H Temperature Source Oral Oral Pulse Rate 97 90 Respiratory Rate 19 H 17 Respiratory Effort Respiratory Pattern Blood Pressure 105/82 H 113/56 L Blood Pressure Mean 89 75 Pulse Ox 96 99 Oxygen Delivery Method Nasal Cannula Nasal Cannula Oxygen Flow Rate (L/min) 3 3 MDM MDM MDM Narrative Medical decision making narrative: Comprehensive work-up was pursued, concern is for COPD exacerbation versus pleurisy versus pneumonia. I have low suspicion for pneumothorax. She is satting well on her home oxygen at 100%. I reviewed her laboratory work and she has a leukocytosis of 19.1, hemoglobin normal at 14.4, hematocrit 43.8, platelet count normal at 246. Review of her electrolyte panel shows glucose appropriately elevated at 115 with a normal anion gap of 5. Her high- sensitivity troponin is 5, repeat is also 5 for a delta of 0. EKG interpreted by myself shows no evidence of STEMI, or gross ectopy. Chest x-ray interpreted by myself shows a right upper lobe pneumonia. I reviewed the radiology report which confirms my independent interpretation, they also added left lower lobe atelectasis versus scarring. Patient does have history of VATS procedure. She did spike a temperature of 100.7 degrees here in the emergency department. She was administered Tylenol and blood cultures were obtained. Her lactic acid is normal on review at 0.9. She was started on antibiotics in the form of azithromycin and Rocephin. Given her SIRS as she was very tachycardic in the 120s and has a leukocytosis and now has elevated temperature, patient was discussed with the hospitalist, Dr. Guzman, for admission. Patient is in stable condition. History & Record Review Additional record(s) reviewed:: Prior ED visit and Prior labs Lab Data Attestation: I reviewed the patient's lab results. Labs: Laboratory Results - last 24 hr 11/25/22 11/25/22 11/25/22 17:24 17:24 18:45 WBC 19.1 H RBC 4.77 Hgb 14.4 Hct 43.8 MCV 91.8 MCH 30.2 MCHC 32.9 RDW Std Deviation 44.9 H RDW Coeff of Jin 13.2 Plt Count 246 MPV 8.7 Immature Gran % (Auto) 0.600 Neut % (Auto) 90.8 H Lymph % (Auto) 4.2 L [place] % (Auto) 4.1 Eos % (Auto) 0.0 Baso % (Auto) 0.3 Absolute Neuts (auto) 17.3 H Absolute Lymphs (auto) 0.80 L Nucleated RBC % 0 Sodium 137 Potassium 4.0 Chloride 104 Carbon Dioxide 28.0 Anion Gap 5 BUN 20 H Creatinine 0.85 Est GFR (MDRD) Af Amer 85 Est GFR (MDRD) Non-Af 70 BUN/Creatinine Ratio 23.4 H Glucose 115 H Lactic Acid 0.9 Calcium 9.6 Troponin I High Sens 5 11/25/22 19:35 WBC RBC Hgb Hct MCV MCH MCHC RDW Std Deviation RDW Coeff of Jin Plt Count MPV Immature Gran % (Auto) Neut % (Auto) Lymph % (Auto) [place] % (Auto) Eos % (Auto) Baso % (Auto) Absolute Neuts (auto) Absolute Lymphs (auto) Nucleated RBC % Sodium Potassium Chloride Carbon Dioxide Anion Gap BUN Creatinine Est GFR (MDRD) Af Amer Est GFR (MDRD) Non-Af BUN/Creatinine Ratio Glucose Lactic Acid Calcium Troponin I High Sens 5 Radiography Diagnostic Testing: Clinical Impression(s) from Imaging Studies Chest X-Ray 11/25/22 17:45 IMPRESSION: 1. Interval development of diffuse interstitial infiltrate in the RIGHT upper lobe, and patchy area of atelectasis versus infiltrate and scar at the LEFT base. 2. Sequelae of COPD. 3. No airspace consolidation, congestive failure, or effusion. Electronically Signed: Angel Calderon MD at 18:15 EDT , Discharge Plan Dx/Rx/DC Orders Clinical Impression: Pneumonia, Chest pain, SIRS (systemic inflammatory response syndrome) Disposition Disposition: Acute Care Hospital [facility] Discharge Date/Time: 11/25/22 21:08
--- NOTE | 2022-11-25 17:45 | RAD_ITS ---
INDICATION: chest pain EXAMINATION/TECHNIQUE: X-RAY - XR Chest 1 View COMPARISON: 05/05/2022 FINDINGS: LIFE-SUPPORT AND LINES: 1. None HEART AND VESSELS: The cardiac silhouette, pulmonary vasculature have normal appearance. No evidence of congestive failure. LUNGS AND PLEURAL SPACES: Lungs are hyperexpanded, consistent with sequelae of COPD. There however has been interval development of coarse interstitial markings in the RIGHT suprahilar region. No consolidation. Additional area of increased interstitial markings at the LEFT lung base. No pulmonary mass is noted. MEDIASTINUM AND HILAR REGIONS: No masses adenopathy noted. No areas of calcification. Visualized upper airway is normal in position. BONY ELEMENTS: No acute bony changes noted. RAD/Chest 1 View (Portable) IMPRESSION: 1. Interval development of diffuse interstitial infiltrate in the RIGHT upper lobe, and patchy area of atelectasis versus infiltrate and scar at the LEFT base. 2. Sequelae of COPD. 3. No airspace consolidation, congestive failure, or effusion. Electronically Signed: Angel Calderon MD at 18:15 EDT ,
[2022-11-25] MEDS: Ipratropium/Albuterol Sulfate 3 ML AMPUL.NEB INHALATION ×2 (17:52→23:06)
[2022-11-25 17:56] LABS: Anion Gap 5 (5-15); BUN 20 mg/dL (7-18); BUN/Creat Ratio 23.4 RATIO (10-20); Calcium,Total 9.6 mg/dL (8.5-10.1); Chloride 104 mmol/L (98-107); Creatinine, Serum 0.85 mg/dL (0.55-1.02); EST Glomerular Filtration Rate 70 mL/min (>60); Est Glom Filt Rate - Afr Amer 85 mL/min (>60); Glucose 115 mg/dL (74-106); Sodium Level 137 mmol/L (136-145); Troponin-I HS (w/2H Reflex) 5 pg/mL (3.0-54.0)
[2022-11-25] MEDS: MethylPREDNISolone 125 MG/2 ML Vial IV (18:30)
[2022-11-25] MEDS: Acetaminophen 500 MG Tablet 1000 MG PO (18:49)
[2022-11-25] MEDS: 0.9% Normal Saline 1,000 ML 999 ML IV ×2 (18:54→20:04)
[2022-11-25 19:25] LABS: Lactic Acid 0.9 mmol/L (0.4-1.9)
[2022-11-25 19:28] LABS: Reflex Troponin-HS? (from REC) Y
[2022-11-25 19:57] LABS: Troponin-I HS 5 pg/mL (3.0-54.0)
--- NOTE | 2022-11-25 20:17 | PCM.HP.STD ---
HPI - General General Date of Admission: 11/25/22 Date of Service: 11/25/22 Chief Complaint: Chest pain HPI Narrative STEPHAN MILLER, is a 72 F with a significant history of tobacco abuse; COPD on 5 L nasal cannula oxygen as needed; pneumonia and pleurisy who presents to emergency department with sudden onset excruciating right-sided sharp chest pain that radiated to her right back reminiscent with her previous history of pleurisy. Her pain improves with lying still and the pain is aggravated by moving. Associated with her symptoms is nausea and dry heaving. She denies any suman vomiting. Further, she reports of shortness of breath. She denies wheezing. She reports chronic productive cough of clear to yellow sputum which is unchanged. She reports chills. She reports a poor appetite. She reports needing oxygen all day. [facility] Medical History Cataract Collapsed lung COPD (chronic obstructive pulmonary disease) Osteoporosis Pleurisy Port placement VATS bullectomy/doxy peurodesis (left) Visual disturbances, right eye Home Medications ipratropium 0.5 mg-albuterol 3 mg (2.5 mg base)/3 mL nebulization soln 3 ml inhalation Q4H PRN PRN SOB &/OR WHEEZING #180 mL 08/28/20 [Rx Last Taken 11/25/22] albuterol sulfate 90 mcg/actuation aerosol inhaler (Ventolin HFA) 2 puff inhalation Q4H PRN shortness of breath or wheezing #18 grams 06/03/22 [Rx Last Taken 11/25/22] budesonide 160 mcg-glycopyr 9 mcg-formot 4.8 mcg/actuation HFA inhaler (Breztri Aerosphere) 2 inh inhalation BID #10.7 grams 06/03/22 [Rx Last Taken 11/25/22] Allergy/AdvReac Type Severity Reaction Status Date / Time No Known Allergies Allergy Verified 06/03/22 14:14 Family History Mother Hypoglycemia Neuropathy Thyroid disorder Hypertension Heart disease Diverticulitis Father COPD (chronic obstructive pulmonary disease) Surgical History History of bilateral mastectomy History of breast biopsy History of cataract extraction History of exploratory laparotomy Social History Smoking Status: Heavy Smoker (>10/day) alcohol intake: never substance use type: does not use ROS ROS Narrative Pertinent positives and pertinent negatives as noted in HPI. All other systems were reviewed and are negative Vital Signs Vital Signs Vital Signs: 11/25/22 16:47 11/25/22 16:48 11/25/22 17:26 Temperature 97.8 F Temperature Source Temporal Pulse Rate 125 H Respiratory Rate 28 H Respiratory Effort Respiratory Pattern Blood Pressure 131/71 H Blood Pressure Mean 91 Pulse Ox 97 100 Oxygen Delivery Method Nasal Cannula Nasal Cannula Oxygen Flow Rate (L/min) 5 5 11/25/22 17:27 11/25/22 17:53 11/25/22 17:46 Temperature Temperature Source Pulse Rate 107 H 108 H Respiratory Rate 20 H 21 H Respiratory Effort Short of Breath Respiratory Pattern Tachypnea Blood Pressure 112/61 Blood Pressure Mean 78 Pulse Ox 94 Oxygen Delivery Method Nasal Cannula Oxygen Flow Rate (L/min) 2 11/25/22 18:00 11/25/22 18:33 11/25/22 19:00 Temperature 100.7 F H Temperature Source Oral Pulse Rate 97 Respiratory Rate 19 H Respiratory Effort Respiratory Pattern Blood Pressure 105/82 H Blood Pressure Mean 89 Pulse Ox 94 96 Oxygen Delivery Method Nasal Cannula Nasal Cannula Oxygen Flow Rate (L/min) 3 3 11/25/22 19:00 11/25/22 20:00 Temperature 100.7 F H 100.5 F H Temperature Source Oral Oral Pulse Rate 97 90 Respiratory Rate 19 H 17 Respiratory Effort Respiratory Pattern Blood Pressure 105/82 H 113/56 L Blood Pressure Mean 89 75 Pulse Ox 96 99 Oxygen Delivery Method Nasal Cannula Nasal Cannula Oxygen Flow Rate (L/min) 3 3 Weight Weight: 36.7 kg Body Mass Index (BMI) 13.8 Physical Exam Narrative Physical exam: General: Well-nourished, well-developed. Head: Normocephalic, atraumatic, no tenderness Eyes: Vision is grossly intact. EOMI ENT, no trauma, moist mucous membranes, no rhinorrhea Neck: Nontender, No thyromegaly. CVS: Regular rate and rhythm. S1-S2 present. No murmur, gallop or rub. Respiratory : Diminished bilaterally, chest wall nontender Abdomen: Soft, nontender, nondistended, normal bowel sounds, no masses : Deferred Back: Nontender, no CVA tenderness, no midline spinal tenderness, deformities, step-offs Extremities: Cachectic, nontender full range of motion, no trauma Skin: Normal color, no trauma, abrasions Neuro: Alert, oriented, cranial nerves II through XII grossly intact. Psychiatry: Normal mood. Normal affect. Not depressed. Not anxious. Results Lab / Micro Data Result Diagrams: 11/25/22 17:24 11/25/22 17:24 Labs: Laboratory Results - last 24 hr 11/25/22 17:24: WBC 19.1 H, RBC 4.77, Hgb 14.4, Hct 43.8, MCV 91.8, MCH 30.2, MCHC 32.9, RDW Std Deviation 44.9 H, RDW Coeff of Jin 13.2, Plt Count 246, MPV 8.7, Immature Gran % (Auto) 0.600, Neut % (Auto) 90.8 H, Lymph % (Auto) 4.2 L, [place] % (Auto) 4.1, Eos % (Auto) 0.0, Baso % (Auto) 0.3, Absolute Neuts (auto) 17.3 H, Absolute Lymphs (auto) 0.80 L, Nucleated RBC % 0 11/25/22 17:24: Sodium 137, Potassium 4.0, Chloride 104, Carbon Dioxide 28.0, Anion Gap 5, BUN 20 H, Creatinine 0.85, Est GFR (MDRD) Af Amer 85, Est GFR (MDRD) Non-Af 70, BUN/Creatinine Ratio 23.4 H, Glucose 115 H, Calcium 9.6, Troponin I High Sens 5 11/25/22 18:45: Lactic Acid 0.9 11/25/22 19:35: Troponin I High Sens 5 Radiology Impression Chest X-Ray 11/25/22 17:45 IMPRESSION: 1. Interval development of diffuse interstitial infiltrate in the RIGHT upper lobe, and patchy area of atelectasis versus infiltrate and scar at the LEFT base. 2. Sequelae of COPD. 3. No airspace consolidation, congestive failure, or effusion. Electronically Signed: Angel Calderon MD at 18:15 EDT , Assessment & Plan Assessment/Plan (1) SIRS (systemic inflammatory response syndrome): (2) Chest pain: (3) Pneumonia: (4) Smoking greater than 40 pack years: (5) Severe protein-energy malnutrition: (6) Tobacco abuse: PLAN: Plan Pneumonia with pleurisy Gram-positive, gram-negative or atypical. Patient meets this criteria with a white count of 19,100; Tmax of 100.7 Fahrenheit. Tachycardia with highest heart rate of 125. Lactic acid: 0.9. There is no organ dysfunction to be classified as sepsis. Sepsis ruled out. Blood culture ?2 is pending Chest x-ray: Impression by radiologist: 1.? Interval development of diffuse interstitial infiltrate in the RIGHT upper lobe, and patchy area of atelectasis versus infiltrate and scar at the LEFT base. 2.? Sequelae of COPD. 3.? No airspace consolidation, congestive failure, or effusion Chest x-ray was independently interpreted by hospitalist: Agrees with radiology interpretation. Antibiotics: Ceftriaxone and azithromycin IV ordered. Legionella antigen screen and Strep antigen ordered Trend CBC and BMP Received telemetry 125 mg IV at the emergency department.Prednisone 40 mg daily ordered. Prednisone 40 mg daily ordered. Severe protein calorie malnutrition Cachectic. BMI of 13.9 kg per metered square. Ensure plud ordered. Nutrition consult Tobacco abuse Declined nicotine patch or gum. Counseled. COPD Does not appear to be in exacerbation. Home inhalers continued. DVT Prophylaxis subcutaneous Lovenox adjusted by weight. Charges/Coding Visit Charges Inpatient E&M: 76912 Init Hosp L3
[2022-11-25] MEDS: Ensure Plus High Protein 120 ML LIQUID PO (22:07)
[2022-11-26] VITALS (8 sets, daily range): BP systolic 101–111; BP diastolic 53–61; PULSE 71–93; RESP 16–18; TEMP 36.3–36.8; O2SAT 93–99
[2022-11-26] MEDS: Acetaminophen 325 MG Tablet 650 MG PO ×2 (03:41→11:17)
[2022-11-26 06:43] LABS: Absolute Lymphocyte Count 0.67 X10^3/uL (0.83-4.51); Absolute Neutrophil Count 14.8 X10^3/uL (2.0-7.7); Basophil# 0.05 X10^3/uL; Basophil% 0.3 % (0-1); Hematocrit 37.9 % (37-47); Hemoglobin 12.2 g/dL (12.0-15.0); Lymphocyte # 0.67 X10^3/ul (0.83-4.51); Lymphocyte % 4.1 % (19-41); Mean Corp Hgb Conc 32.2 g/dL (32-36); Mean Corpuscular Hgb 30.2 pg (27.0-32.0); Mean Corpuscular Volume 93.8 fL (81-99); Mean Platelet Vol. 9.5 fl (6.2-12.0); Monocyte# 0.55 X10^3/uL; Monocyte% 3.4 % (0-10); NRBC Flagged by Analyzer 0 % (0-5); Neutrophil # 14.76 X10^3/uL (2.7-7.7); Neutrophil % 91.1 % (47-70); POSITIVE MORPHOLOGY YES; Platelet Count 207 K/mm3 (150-450); RBC Distribution Width CV 13.2 % (11.6-14.6); RBC Distribution Width SD 46.1 fl (35.1-43.9); Red Blood Count 4.04 M/mm3 (4.2-5.4); White Blood Count 16.2 K/mm3 (4.4-11.0)
[2022-11-26 06:52] LABS: Differential Indicated SCAN CRITERIA MET
[2022-11-26 07:14] LABS: Differential Comment SCANNED
[2022-11-26 07:16] LABS: Anion Gap 3 (5-15); BUN 20 mg/dL (7-18); BUN/Creat Ratio 39.3 RATIO (10-20); Calcium,Total 8.7 mg/dL (8.5-10.1); Chloride 108 mmol/L (98-107); Creatinine, Serum 0.51 mg/dL (0.55-1.02); EST Glomerular Filtration Rate 127 mL/min (>60); Est Glom Filt Rate - Afr Amer 154 mL/min (>60); Estimated Creatinine Clearance 28.98 ml/min; Glucose 163 mg/dL (74-106); Potassium 3.6 mmol/L (3.5-5.1); Sodium Level 136 mmol/L (136-145)
[2022-11-26] MEDS: Ipratropium/Albuterol Sulfate 3 ML AMPUL.NEB INHALATION ×3 (07:29→19:41)
[2022-11-26] MEDS: Enoxaparin 30 MG/0.3 ML Syringe SC (08:43)
[2022-11-26] MEDS: predniSONE 20 MG Tablet 40 MG PO (08:43)
[2022-11-26] MEDS: Ensure Plus High Protein 120 ML LIQUID PO ×4 (08:43→22:03)
--- NOTE | 2022-11-26 09:10 | PN.HOSP_ITS ---
Subjective Subjective Well, feels better. She is only on 3 L nasal cannula, she is supposed to wear 5 with exertion at home Objective Data Objective Data Vital Signs: Vital Signs Temp Pulse Resp BP Pulse Ox O2 Del Method O2 Flow Rate 97.6 F L 72 18 101/55 L 93 Room Air 3 11/26/22 08:40 11/26/22 08:40 11/26/22 08:40 11/26/22 08:40 11/26/22 08:40 11/26/22 08:40 11/26/22 08:39 Oxygen Flow Rate (L/min) 3 Oxygen Delivery Method Room Air Weight: 77 lb 5 oz Body Mass Index (BMI) 13.2 Intake & Output: Intake and Output for Last 24 Hours 11/25/22 11/26/22 11/27/22 03:59 03:59 03:59 Intake Total 1815 / 1815 Output Total 550 / 550 Balance 1815 / 1815 -550 / -550 Lab / Micro Data Result Diagrams: 11/26/22 06:10 11/26/22 06:10 Labs: Laboratory Results - last 24 hr 11/25/22 17:24: WBC 19.1 H, RBC 4.77, Hgb 14.4, Hct 43.8, MCV 91.8, MCH 30.2, MCHC 32.9, RDW Std Deviation 44.9 H, RDW Coeff of Jin 13.2, Plt Count 246, MPV 8.7, Immature Gran % (Auto) 0.600, Neut % (Auto) 90.8 H, Lymph % (Auto) 4.2 L, [place] % (Auto) 4.1, Eos % (Auto) 0.0, Baso % (Auto) 0.3, Absolute Neuts (auto) 17.3 H, Absolute Lymphs (auto) 0.80 L, Nucleated RBC % 0 11/25/22 17:24: Sodium 137, Potassium 4.0, Chloride 104, Carbon Dioxide 28.0, Anion Gap 5, BUN 20 H, Creatinine 0.85, Est GFR (MDRD) Af Amer 85, Est GFR (MDRD) Non-Af 70, BUN/Creatinine Ratio 23.4 H, Glucose 115 H, Calcium 9.6, Troponin I High Sens 5 11/25/22 18:45: Lactic Acid 0.9 11/25/22 19:35: Troponin I High Sens 5 11/26/22 06:10: WBC 16.2 H, RBC 4.04 L, Hgb 12.2, Hct 37.9, MCV 93.8, MCH 30.2, MCHC 32.2, RDW Std Deviation 46.1 H, RDW Coeff of Jin 13.2, Plt Count 207, MPV 9.5, Immature Gran % (Auto) 1.100 H, Neut % (Auto) 91.1 H, Lymph % (Auto) 4.1 L, [place] % (Auto) 3.4, Eos % (Auto) 0.0, Baso % (Auto) 0.3, Absolute Neuts (auto) 14.8 H, Absolute Lymphs (auto) 0.67 L, Nucleated RBC % 0, Differential Comment SCANNED 11/26/22 06:10: Sodium 136, Potassium 3.6, Chloride 108 H, Carbon Dioxide 25.0, Anion Gap 3 L, BUN 20 H, Creatinine 0.51 L, Estim Creat Clear Calc 28.98, Est GFR (MDRD) Af Amer 154, Est GFR (MDRD) Non-Af 127, BUN/Creatinine Ratio 39.3 H, Glucose 163 H, Calcium 8.7 Micro: Microbiology 11/25/22 21:31 Urine, Clean Catch Legionella Antigen - Final 11/25/22 21:31 Urine, Clean Catch Streptococcus pneumoniae Antigen (M - F inal 11/25/22 18:45 Nasal Secretion SARS-CoV-2 & FLU Antigen (Rapid) - Final Radiography Diagnostic Testing: Radiology Impression Chest X-Ray 11/25/22 17:45 IMPRESSION: 1. Interval development of diffuse interstitial infiltrate in the RIGHT upper lobe, and patchy area of atelectasis versus infiltrate and scar at the LEFT base. 2. Sequelae of COPD. 3. No airspace consolidation, congestive failure, or effusion. Electronically Signed: Angel Calderon MD at 18:15 EDT , Physical Exam Narrative General: Alert, Oriented x3, Cooperative, No apparent distress HEENT: Atraumatic, PERRLA, EOMI, Normocephalic, cachectic Oral: Moist Mucosa Neck: Supple, No JVD Lungs: Diminished, Normal air movement, No rhonchi, No wheeze, No rales, slight crackles Cardiovascular: Regular rate, Regular Rhythm, Normal S1, Normal S2, No murmurs Abdomen: Soft, Non Tender, Non-Distended, No Hepato-splenomegaly Extremities: No edema, Capillary Refill Less than 3 Seconds Skin: No rashes, No breakdown Musculoskeletal: No Tenderness to Palpation of Joints or Extremities Neurological: Cranial nerves II-XII grossly intact, Motor Exam 5/5 strength throughout, Sensory exam intact to light touch and pain Psych/Mental Status: Normal Affect, Appropriate Assessment & Plan Assessment/Plan (1) SIRS (systemic inflammatory response syndrome): (2) Chest pain: (3) Pneumonia: (4) Smoking greater than 40 pack years: (5) Severe protein-energy malnutrition: (6) Tobacco abuse: PLAN: Plan 1. Bilateral bacterial pneumonia with pleurisy/COPD not in exacerbation/tobacco abuse ? Continue with antibiotics, urine antigens are negative ? We will hold off on steroids at this time ? Leukocytosis is improving ? Continue with her home inhalers ? Discussed cessation Severe protein calorie malnutrition Cachectic. BMI of 13.9 kg per metered square. Ensure plud ordered. Nutrition consult DVT: Lovenox Charges/Coding Visit Charges Inpatient E&M: 67808 Subs Hosp L2
--- NOTE | 2022-11-26 10:13 | PCM.PN.HOSP ---
Reason for Visit Reason for Visit: Diagnoses Unspecified severe protein-calorie malnutrition (11/25/22) Nicotine dependence, cigarettes, uncomplicated (11/25/22) Pneumonia, unspecified organism (11/25/22) Chest pain, unspecified (11/25/22) Systemic inflammatory response syndrome (SIRS) of non-infectious origin without acute organ dysfunction (11/25/22) Tobacco use (11/25/22) Subjective Subjective Patient sitting up in bed, alert, and eating breakfast. States feeling better this morning than last night when she came in. Currently using 3 L nasal cannula with extension tubing; has prescription to wear 5 L with exertion/ambulation. Moist cough present but denies sputum production this morning. Objective Data Objective Data Vital Signs: Vital Signs Temp Pulse Resp BP Pulse Ox O2 Del Method O2 Flow Rate 97.6 F L 88 18 101/55 L 98 Nasal Cannula 3 11/26/22 08:40 11/26/22 10:10 11/26/22 10:10 11/26/22 08:40 11/26/22 10:10 11/26/22 10:10 11/26/22 10:10 Oxygen Flow Rate (L/min) 3 Oxygen Delivery Method Nasal Cannula Weight: 35.068 kg Body Mass Index (BMI) 13.2 Intake & Output: Intake and Output for Last 24 Hours 11/24/22 11/25/22 11/26/22 23:59 23:59 23:59 Intake Total 1415 / 1815 400 / 400 Output Total 550 / 550 Balance 1415 / 1815 -150 / -150 Lab / Micro Data Result Diagrams: 11/26/22 06:10 11/26/22 06:10 Labs: Laboratory Results - last 24 hr 11/25/22 17:24: WBC 19.1 H, RBC 4.77, Hgb 14.4, Hct 43.8, MCV 91.8, MCH 30.2, MCHC 32.9, RDW Std Deviation 44.9 H, RDW Coeff of Jin 13.2, Plt Count 246, MPV 8.7, Immature Gran % (Auto) 0.600, Neut % (Auto) 90.8 H, Lymph % (Auto) 4.2 L, [place] % (Auto) 4.1, Eos % (Auto) 0.0, Baso % (Auto) 0.3, Absolute Neuts (auto) 17.3 H, Absolute Lymphs (auto) 0.80 L, Nucleated RBC % 0 11/25/22 17:24: Sodium 137, Potassium 4.0, Chloride 104, Carbon Dioxide 28.0, Anion Gap 5, BUN 20 H, Creatinine 0.85, Est GFR (MDRD) Af Amer 85, Est GFR (MDRD) Non-Af 70, BUN/Creatinine Ratio 23.4 H, Glucose 115 H, Calcium 9.6, Troponin I High Sens 5 11/25/22 18:45: Lactic Acid 0.9 11/25/22 19:35: Troponin I High Sens 5 11/26/22 06:10: WBC 16.2 H, RBC 4.04 L, Hgb 12.2, Hct 37.9, MCV 93.8, MCH 30.2, MCHC 32.2, RDW Std Deviation 46.1 H, RDW Coeff of Jin 13.2, Plt Count 207, MPV 9.5, Immature Gran % (Auto) 1.100 H, Neut % (Auto) 91.1 H, Lymph % (Auto) 4.1 L, [place] % (Auto) 3.4, Eos % (Auto) 0.0, Baso % (Auto) 0.3, Absolute Neuts (auto) 14.8 H, Absolute Lymphs (auto) 0.67 L, Nucleated RBC % 0, Differential Comment SCANNED 11/26/22 06:10: Sodium 136, Potassium 3.6, Chloride 108 H, Carbon Dioxide 25.0, Anion Gap 3 L, BUN 20 H, Creatinine 0.51 L, Estim Creat Clear Calc 28.98, Est GFR (MDRD) Af Amer 154, Est GFR (MDRD) Non-Af 127, BUN/Creatinine Ratio 39.3 H, Glucose 163 H, Calcium 8.7 Micro: Microbiology 11/25/22 21:31 Urine, Clean Catch Legionella Antigen - Final 11/25/22 21:31 Urine, Clean Catch Streptococcus pneumoniae Antigen (M - Final 11/25/22 18:45 Nasal Secretion SARS-CoV-2 & FLU Antigen (Rapid) - Final Radiography Diagnostic Testing: Radiology Impression Chest X-Ray 11/25/22 17:45 IMPRESSION: 1. Interval development of diffuse interstitial infiltrate in the RIGHT upper lobe, and patchy area of atelectasis versus infiltrate and scar at the LEFT base. 2. Sequelae of COPD. 3. No airspace consolidation, congestive failure, or effusion. Electronically Signed: Angel Calderon MD at 18:15 EDT , Physical Exam Const alert and oriented x3 HEENT moist oral mucous membranes Head and Scalp: normocephalic Eyes PERRL and EOMs intact bilaterally Neck supple, no JVD and no carotid bruits Chest Chest Narrative: Abnormal inspection of the chest, symmetrical chest wall rise with equal excursion. Noted bilateral radical mastectomy, without augmentation. Resp Effort and Inspection: able to speak in complete sentences, actively coughing non-productive, moist and normal to patient, retractions intercostal and sternal and other His dyspnea and oxygen needs with exertion. Auscultation: rales right base and diminished lung sounds right upper Percussion: dullness Upper: right Cardio regular rate, regular rhythm, S1 normal heart sound, S2 normal heart sound, no murmurs, no rub and no gallops GI normal to inspection, nondistended, normoactive bowel sounds, soft to palpation and non-tender no CVA tenderness Back/Spine normal ROM, no thoracic nor lumbar tenderness, thoraco-lumbar ROM normal and straight leg raise negative bilaterally Extremity normal to inspection and full ROM Neuro oriented x3, CN's II-XII intact bilaterally, moves all extremities, no focal motor deficits and no sensory deficits noted Motor Exam: muscle tone normal throughout Psych affect normal Assessment & Plan Assessment/Plan (1) Pneumonia: (2) Chest pain: (3) Tobacco abuse: PLAN: Plan 1. Chest pain secondary to pneumonia - CXR showing diffuse infiltrate in right upper lobe and infiltrate vs atelectasis in left base; leukocytosis and left shift present on CBC; troponin x2 negative at 5; findings correlate with pneumonia; blood cultures x2 pending; BPs trending 101-115/53-59 with MAPs consistently greater than 65mmHg this admission - history of COPD stage 4 on GOLD scale; CXR demonstrated hyperinflated lungs and COPD sequelae but patient is not in an exacerbation state of the disease; no additional steroids necessary at this time; continuing home albuterol inhalation and oxygen supply therapies - patient has sternal and intercostal retractions without any noted distress; breathing pattern stated as normal per patient 2. Tobacco abuse - history of 40 pack years, grief counselor given on cessation; patient feels it may finally be time to totally stop. 3. Malnutrition - cachectic body habitus; patient denies appetite changes; reports food poisoning 2weeks ago with profuse vomiting for 24hours, but no other dietary changes - educated and encouraged high protein and higher calorie food stuffs; recommended liquid nutritional supplements as well DVT: Lovenox
--- NOTE | 2022-11-26 10:38 | CASEMGMT ---
Addendum entered by Johana Jamil 11/26/22 15:40: Received notification from Emani at [facility] [place] that they cannot tell what pt cost of oxygen would be ahead of set up as it is determined by her insurances copays and deductibles. ITZ SMITH spoke with hospitalist who is agreeable with pt going home on her inogen portable concentrator if she needs 5L or less and not having home oxygen set up. ITZ SMITH into pt room to make aware that [employer] cannot give a osborne ahead of time. Pt states she does not want to pay for the oxygen. She states she had the same insurance as she does now and can not afford it. She states she may have gotten behind on the bill. Pt is aware the hospitalist is agreeable to her going home on the inogen as long as she needs 5L or less. Pt states she again has a home and car carrot grader inspector in case of power outage. She states she also has a generator. Original Note: ITZ SMITH Assessment: Face to Face with pt for initial transition planning/care coordination assessment. ITZ SMITH introduced self and role at [facility], pt voices understanding and consents to assessment. Pt is A/O x4 and answers all questions appropriately at this time. Pt sitting up in bed with oxygen on in no distress. Care providers, pharmacy, and demographics verified/updated. Admitting Dx: Pneumonia PCP:Varghese Specialists:shira Park; isac Staples Preferred Pharmacy: [facility] Insurance: EMILY Vann Prescription Benefit: yes LNOK: Jaime Bañuelos, ; Sylwia Marsh, sister Living Arrangements: Pt lives with in a two story home with 4 steps to enter. Pt reports she is I in ADL's and denies concerns at home. Transportation: Pt drives self and denies concerns with transportation. DME/HHC/SNF: Pt has an Inogen portable concentrator that pt uses 5L PRN. She states she does not have a concentrator that plugs into the wall or any other oxygen. She states she could not afford it through [employer]. Pt Inogen goes up to 5L and she has a home carrot grader inspector and a car carrot grader inspector for it. Pt also has a nebulizer and pox. Pt denies hx of HHC or SNF stays. Pt states no concerns with going home at time of dc. She denies need for any HHC or services in the home. Email to [facility] [place] [facility] liaison to confirm coverage of pt oxygen to have a concentrator in the home. Pt states no further concerns/needs. CM to follow. Advised pt to ask CM if any further question/concerns/needs arise, voices understanding. Pt Goal: Home Plan: Home, follow oxygen
--- NOTE | 2022-11-26 12:15 | CHAPLAIN ---
Type of Pastoral Visit _x__ Initial Visit ___ Follow-up Visit ___ On-call Visit ___ General Patient Visit ___ Spiritual Assessment ___ Family Conference ___ Bereavement ___ Rapid Response ___ Code Blue ___ Other (describe below) Pastoral Care Referral From _x__ Patient ___ Family ___ Nurse ___ Physician ___ Parts Advisor ___ Wood Milling Machine Operator ___ Other (describe below) Sacrament/Intervention _x__ Active listening ___ Anointing ___ Pentecostalism ___ Bereavement ___ Communion _x__ Radha exploration ___ ___ Life review _x__ Prayer ___ Reconciliation ___ Sacrament of Sick _x__ Supportive presence ___ Wedding ___ Other (describe below) Pastoral Comments patient is honest about her declining health and asked pray that I can quit smoking; pt focused visit on her struggle with smoking and that her spouse also smokes a lot; pt is connected to a advent and has family; pt offered listening and prayer; pt encouraged to explore the resources available for tobacco cessation;
[2022-11-26] MEDS: Budesonide Respules 0.5 MG/2 ML AMPUL.NEB. INHALATION (19:41)
[2022-11-26] MEDS: Ceftriaxone 1 GM/50 ML BAG IV (21:05)
[2022-11-27] VITALS (7 sets, daily range): BP systolic 104–136; BP diastolic 60–75; PULSE 71–94; RESP 16–23; TEMP 36.9–37; O2SAT 88–99
[2022-11-27] MEDS: Ipratropium/Albuterol Sulfate 3 ML AMPUL.NEB INHALATION ×3 (01:44→13:43)
[2022-11-27] MEDS: Acetaminophen 325 MG Tablet 650 MG PO ×2 (04:25→14:12)
[2022-11-27 06:37] LABS: Absolute Lymphocyte Count 1.45 X10^3/uL (0.83-4.51); Absolute Neutrophil Count 11.1 X10^3/uL (2.0-7.7); Basophil# 0.03 X10^3/uL; Basophil% 0.2 % (0-1); Eosinophil# 0.02 X10^3/uL; Eosinophils% 0.2 % (0-5); Hematocrit 35.8 % (37-47); Hemoglobin 11.3 g/dL (12.0-15.0); Lymphocyte # 1.45 X10^3/ul (0.83-4.51); Lymphocyte % 10.9 % (19-41); Mean Corp Hgb Conc 31.6 g/dL (32-36); Mean Corpuscular Hgb 29.4 pg (27.0-32.0); Mean Platelet Vol. 9.4 fl (6.2-12.0); Monocyte# 0.52 X10^3/uL; Monocyte% 3.9 % (0-10); NRBC Flagged by Analyzer 0 % (0-5); Neutrophil # 11.14 X10^3/uL (2.7-7.7); Neutrophil % 83.7 % (47-70); Platelet Count 222 K/mm3 (150-450); RBC Distribution Width CV 13.3 % (11.6-14.6); RBC Distribution Width SD 45.8 fl (35.1-43.9); Red Blood Count 3.85 M/mm3 (4.2-5.4); White Blood Count 13.3 K/mm3 (4.4-11.0)
[2022-11-27] MEDS: Budesonide Respules 0.5 MG/2 ML AMPUL.NEB. INHALATION (07:10)
--- NOTE | 2022-11-27 08:02 | PCM.PN.HOSP ---
Reason for Visit Reason for Visit: Diagnoses Unspecified severe protein-calorie malnutrition (11/25/22) Nicotine dependence, cigarettes, uncomplicated (11/25/22) Pneumonia, unspecified organism (11/25/22) Chest pain, unspecified (11/25/22) Systemic inflammatory response syndrome (SIRS) of non-infectious origin without acute organ dysfunction (11/25/22) Tobacco use (11/25/22) Subjective Subjective Patient sitting up in bed, smiling and talkative. States doing much better, coughing up small amounts of clear phlegm this morning because she's been doing those breathing exercises,patient referring to I.S. and PEP. She states chest pain at right apex much less than when she came in. Patient restates her commitment to quitting smoking upon returning home, says it's been 3 days now and I think I can do it, I know I need to do it. Patient provided emotional support and encouragement. Patient currently using oxygen at 2lpm via NC with extension tubing; informed that she will need to complete an ambulatory pulse oximetry measure today to guide discharge planing. Objective Data Objective Data Vital Signs: Vital Signs Temp Pulse Resp BP Pulse Ox O2 Del Method O2 Flow Rate 98.4 F 87 22 H 119/60 98 Nasal Cannula 2 11/27/22 04:17 11/27/22 07:10 11/27/22 07:10 11/27/22 04:17 11/27/22 07:10 11/27/22 07:10 11/27/22 07:10 FiO2 3 11/26/22 21:08 Oxygen Flow Rate (L/min) 2 Oxygen Delivery Method Nasal Cannula Weight: 35.068 kg Body Mass Index (BMI) 13.2 Intake & Output: Intake and Output for Last 24 Hours 11/25/22 11/26/22 11/27/22 23:59 23:59 23:59 Intake Total 1415 / 1815 1355 / 1655 500 / 500 Output Total 550 / 550 Balance 1415 / 1815 805 / 1105 500 / 500 Lab / Micro Data Result Diagrams: 11/27/22 06:28 11/26/22 06:10 Labs: Laboratory Results - last 24 hr 11/27/22 06:28: WBC 13.3 H, RBC 3.85 L, Hgb 11.3 L, Hct 35.8 L, MCV 93.0, MCH 29.4, MCHC 31.6 L, RDW Std Deviation 45.8 H, RDW Coeff of Jin 13.3, Plt Count 222, MPV 9.4, Immature Gran % (Auto) 1.100 H, Neut % (Auto) 83.7 H, Lymph % (Auto) 10.9 L, [place] % (Auto) 3.9, Eos % (Auto) 0.2, Baso % (Auto) 0.2, Absolute Neuts (auto) 11.1 H, Absolute Lymphs (auto) 1.45, Nucleated RBC % 0 Micro: Microbiology 11/25/22 21:31 Urine, Clean Catch Legionella Antigen - Final 11/25/22 21:31 Urine, Clean Catch Streptococcus pneumoniae Antigen (M - Final 11/25/22 18:45 Nasal Secretion SARS-CoV-2 & FLU Antigen (Rapid) - Final Physical Exam Const Constitutional Narrative: Alert, oriented x3, no apparent distress, cachectic body habitus, pleasant and cooperative. HEENT Head and Scalp: normocephalic Eyes PERRL and EOMs intact bilaterally Neck supple and no JVD Chest Chest Narrative: Noted bilateral radical mastectomy without augmentation Resp Resp Narrative: Mild sternal and intercostal retractions, able to speak in complete sentences with use of shoulder accessory muscles, equal excursion. Diminished lung sounds with minimal air movement to right upper lobe, clear right middle lobe, fine rales right lower lobe, left lung clear throughout. Cardio regular rate, regular rhythm, S1 normal heart sound, S2 normal heart sound, no murmurs, no rub and no gallops GI GI Narrative: Abdomen flat, normal to inspection, nondistended, normal active bowel sounds; soft to palpation, nontender, no hepatosplenomegaly. no CVA tenderness Extremity normal to inspection and full ROM Neuro CN's II-XII intact bilaterally, no focal motor deficits and no sensory deficits noted Motor Exam: strength 5/5 throughout Psych affect normal Assessment & Plan Assessment/Plan (1) Pneumonia: (2) Tobacco abuse: (3) SIRS (systemic inflammatory response syndrome): (4) Severe protein-energy malnutrition: (5) Chest pain: PLAN: Plan 1. Chest pain secondary to pneumonia - CXR showing diffuse infiltrate in right upper lobe and infiltrate vs atelectasis in left base; leukocytosis and left shift present on CBC; troponin x2 negative at 5; findings correlate with pneumonia; blood cultures x2 pending; BPs trending 101-115/53-59 with MAPs consistently greater than 65mmHg this admission - history of COPD stage 4 on GOLD scale; CXR demonstrated hyperinflated lungs and COPD sequelae but patient is not in an exacerbation state of the disease; no additional steroids necessary at this time; continuing home albuterol inhalation and oxygen supply therapies - patient continues to have sternal and intercostal retractions without any noted distress; breathing pattern stated as normal per patient -11/27: leukocytosis improving, transition IV antibiotic therapy to PO to facilitate discharge home 2. 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 -11/27: patient continues to feel that this is the time to quit smoking. 3. Malnutrition - cachectic body habitus; patient denies appetite changes; reports food poisoning 2weeks ago with profuse vomiting for 24hours, but no other dietary changes - educated and encouraged high protein and higher calorie food stuffs; recommended liquid nutritional supplements as well -11/27: patient states that she plans on trying to keep nutritional supplements in her home DVT: Lovenox
[2022-11-27] MEDS: Ensure Plus High Protein 120 ML LIQUID PO ×2 (09:07→13:44)
[2022-11-27] MEDS: Enoxaparin 30 MG/0.3 ML Syringe SC (09:07)
--- NOTE | 2022-11-27 09:25 | PCM.DC ---
Discharge Instructions Diet Discharge Diet: No restrictions Activity Discharge Activity: Return to Normal Activity Dressing / Incision Call your doctor if you observe: Fever of 101 or Higher, Shortness of breath, Dizziness, Fainting spells, Swelling in the ankles, Chest pain and Increased palpitations (irregular heartbeat) Follow Up Care Test Results: Test results from this visit will be discussed in further detail at your follow-up appointment, if applicable. Discharge Plan Admission Admit Date/Time: 11/25/22 20:25 Attending Provider: Singh Bravo Primary Care Provider: Jaida Kwong Consulting Providers: Donald Guzman Discharge Orders/Prescriptions Prescriptions: New azithromycin 500 mg tablet 500 mg PO DAILY 2 Days Qty: 2 0RF Rx Instructions: start on day 2 of therapy cefdinir 300 mg capsule 300 mg PO BID 4 Days Qty: 8 0RF Continued ipratropium-albuterol 0.5 mg-3 mg(2.5 mg base)/3 mL solution for nebulization 3 ml INHALATION Q4H PRN PRN (Reason: SOB &/OR WHEEZING) Qty: 180 6RF albuterol sulfate [Ventolin HFA] 90 mcg/actuation HFA aerosol inhaler 2 puff INHALATION Q4H PRN (Reason: shortness of breath or wheezing) Qty: 18 5RF Breztri Aerosphere 160-9-4.8 mcg/actuation HFA aerosol inhaler 2 inh inhalation BID Qty: 10.7 11RF Referrals / Follow Up: Jaida Kwong MD [Primary Care Provider] - Deshawn Torrez MD [Non-Staff] - Disposition Disposition (needs filled in before D/C Order can be placed): Home, Self Care
--- NOTE | 2022-11-27 09:57 | DS.PCM_ITS ---
Providers Date of Admission: 11/25/22 Primary Care Physician: Dr. Jaida Kwong MD Reason For Visit: PNEUMONIA Diagnosis Discharge Diagnosis (1) Pneumonia: Status: Acute Code(s): J18.9 - Pneumonia, unspecified organism (2) Tobacco abuse: Status: Acute Code(s): Z72.0 - Tobacco use (3) SIRS (systemic inflammatory response syndrome): Status: Acute Code(s): R65.10 - Systemic inflammatory response syndrome (SIRS) of non-infectious origin without acute organ dysfunction (4) Severe protein-energy malnutrition: Status: Chronic Code(s): E43 - Unspecified severe protein-calorie malnutrition (5) Chest pain: Status: Acute Code(s): R07.9 - Chest pain, unspecified Medications at Discharge Home Medications ipratropium 0.5 mg-albuterol 3 mg (2.5 mg base)/3 mL nebulization soln 3 ml inhalation Q4H PRN PRN SOB &/OR WHEEZING #180 mL 08/28/20 albuterol sulfate 90 mcg/actuation aerosol inhaler (Ventolin HFA) 2 puff inhalation Q4H PRN shortness of breath or wheezing #18 grams 06/03/22 budesonide 160 mcg-glycopyr 9 mcg-formot 4.8 mcg/actuation HFA inhaler (Breztri Aerosphere) 2 inh inhalation BID #10.7 grams 06/03/22 azithromycin 500 mg tablet 500 mg PO DAILY 2 days #2 tabs 11/27/22 cefdinir 300 mg capsule 300 mg PO BID 4 days #8 caps 11/27/22 Hospital Course Operations None Procedures None Summary of Care Provided Minutes Spent on Discharge: 32 Hospital Course: Per HPI: STEPHAN MILLER, is a 72 F with a significant history of tobacco abuse; COPD on 5 L nasal cannula oxygen as needed; pneumonia and pleurisy who presents to emergency department with sudden onset excruciating right-sided sharp chest pain that radiated to her right back reminiscent with her previous history of pleurisy.? Her pain improves with lying still and the pain is aggravated by moving.? Associated with her symptoms is nausea and dry heaving.? She denies any suman vomiting. Further, she reports of shortness of breath.? She denies wheezing.? She reports chronic productive cough of clear to yellow sputum which is unchanged.? She reports chills.? She reports a poor appetite. She reports needing oxygen all day.? Hospital Course: 1. Bilateral bacterial pneumonia with pleurisy/COPD not in exacerbation/tobacco use?72-year-old female presents to the hospital with shortness of breath and increased oxygen requirements. She was also having some right-sided chest pain consistent with pleurisy based on her pneumonia. She was started on antibiotics and her leukocytosis is improving. She feels much better today and she is maintaining her oxygen saturations with ambulation on 2 L nasal cannula, she already has 5 L nasal cannula at home. I discussed with her the plan for possible discharge today she expressed understanding of the risk benefits going home and would like to go home today. I would like her to follow-up with her PCP in 3 to 5 days and to follow-up with a timber hewer as previously scheduled. 2. Severe protein calorie malnutrition is going to be a chronic problem this can complicate her care. Physical Exam Narrative General: Alert, Oriented x3, Cooperative, No apparent distress HEENT: Atraumatic, PERRLA, EOMI, Normocephalic, cachectic Oral: Moist Mucosa Neck: Supple, No JVD Lungs: Diminished, Normal air movement, No rhonchi, No wheeze, No rales, slight crackles Cardiovascular: Regular rate, Regular Rhythm, Normal S1, Normal S2, No murmurs Abdomen: Soft, Non Tender, Non-Distended, No Hepato-splenomegaly Extremities: No edema, Capillary Refill Less than 3 Seconds Skin: No rashes, No breakdown Musculoskeletal: No Tenderness to Palpation of Joints or Extremities Neurological: Cranial nerves II-XII grossly intact, Motor Exam 5/5 strength thr oughout, Sensory exam intact to light touch and pain Psych/Mental Status: Normal Affect, Appropriate Weight / BMI Weight Weight: 77 lb 5 oz Body Mass Index (BMI) 13.2 ABG / Lab / Microbiology Data Result Diagrams: 11/27/22 06:28 11/26/22 06:10 Laboratory: Laboratory Results - last 24 hr 11/27/22 06:28: WBC 13.3 H, RBC 3.85 L, Hgb 11.3 L, Hct 35.8 L, MCV 93.0, MCH 29.4, MCHC 31.6 L, RDW Std Deviation 45.8 H, RDW Coeff of Jin 13.3, Plt Count 222, MPV 9.4, Immature Gran % (Auto) 1.100 H, Neut % (Auto) 83.7 H, Lymph % (Auto) 10.9 L, [place] % (Auto) 3.9, Eos % (Auto) 0.2, Baso % (Auto) 0.2, Absolute Neuts (auto) 11.1 H, Absolute Lymphs (auto) 1.45, Nucleated RBC % 0 Microbiology: Microbiology 11/25/22 21:31 Urine, Clean Catch Legionella Antigen - Final 11/25/22 21:31 Urine, Clean Catch Streptococcus pneumoniae Antigen (M - Final 11/25/22 18:45 Nasal Secretion SARS-CoV-2 & FLU Antigen (Rapid) - Final D/C Instructions Discharge Diet: No restrictions Call your doctor if you observe: Fever of 101 or Higher, Shortness of breath, Dizziness, Fainting spells, Swelling in the ankles, Chest pain and Increased palpitations (irregular heartbeat) Meaningful Use Info Meaningful Use Diagnoses (Choose all that apply): None applicable Discharge Plan Admission Admit Date/Time: 11/25/22 20:25 Attending Provider: Singh Bravo Primary Care Provider: Jaida Kwong Consulting Providers: Donald Guzman Discharge Orders/Prescriptions Prescriptions: New azithromycin 500 mg tablet 500 mg PO DAILY 2 Days Qty: 2 0RF Rx Instructions: start on day 2 of therapy cefdinir 300 mg capsule 300 mg PO BID 4 Days Qty: 8 0RF Continued ipratropium-albuterol 0.5 mg-3 mg(2.5 mg base)/3 mL solution for nebulization 3 ml INHALATION Q4H PRN PRN (Reason: SOB &/OR WHEEZING) Qty: 180 6RF albuterol sulfate [Ventolin HFA] 90 mcg/actuation HFA aerosol inhaler 2 puff INHALATION Q4H PRN (Reason: shortness of breath or wheezing) Qty: 18 5RF Breztri Aerosphere 160-9-4.8 mcg/actuation HFA aerosol inhaler 2 inh inhalation BID Qty: 10.7 11RF Referrals / Follow Up: Jaida Kwong MD [Primary Care Provider] - 12/08/22 11:00 am Deshawn Torrez MD [Non-Staff] - Disposition Disposition (needs filled in before D/C Order can be placed): Home, Self Care Charges/Coding Visit Charges Inpatient E&M: 89481 Disch Hosp >30min
--- NOTE | 2022-11-27 10:15 | CASEMGMT ---
ITZ SMITH spoke with pt nurse post ambulatory pox. ITZ SMITH into pt room, pt aware she needs to wear 2L of oxygen with exertion. Pt aware to monitor her pox. She still does not want a home concentrator. Plan to dc home with her Inogen. Pt denies further homegoing needs.
== END 2022-11-27 17:12 | disposition home or self-care (01) | DRG 193 ==
LOC: ED 20:34 → MS3 20:40
PROVIDERS: Admitting Provider Hospitalist; Emergency Provider Emergency Medicine; PCP Family Medicine; Visit Provider Family Medicine
DX: J15.9 Unspecified bacterial pneumonia (principal); E43 Unspecified severe protein-calorie malnutrition; J44.0 Chronic obstructive pulmonary disease with (acute) lower respiratory infection; Z68.1 Body mass index [BMI] 19.9 or less, adult; Z99.81 Dependence on supplemental oxygen; R09.1 Pleurisy; F17.200 Nicotine dependence, unspecified, uncomplicated; Z79.51 Long term (current) use of inhaled steroids
CPT/HCPCS: 36415; 71045; 80048; 83605; 84484; 85025; 87040; 87428; 87449; 93005; 94640; 94668; 97802; 99252; 99285; 99406; J7030; J7050; A4216; G0463; J0696

== ENCOUNTER → 2023-01-21 | Outpatient (CLI) | payer BC, SELFPAY ==
[2023-01-21 12:24] LABS: Absolute Lymphocyte Count 1.94 X10^3/uL (0.83-4.51); Absolute Neutrophil Count 4.6 X10^3/uL (2.0-7.7); Basophil# 0.07 X10^3/uL; Eosinophil# 0.08 X10^3/uL; Eosinophils% 1.1 % (0-5); Hematocrit 42.9 % (37-47); Hemoglobin 13.5 g/dL (12.0-15.0); Lymphocyte # 1.94 X10^3/ul (0.83-4.51); Lymphocyte % 27.4 % (19-41); Mean Corp Hgb Conc 31.5 g/dL (32-36); Mean Corpuscular Hgb 29.8 pg (27.0-32.0); Mean Corpuscular Volume 94.7 fL (81-99); Mean Platelet Vol. 9.2 fl (6.2-12.0); Monocyte# 0.43 X10^3/uL; Monocyte% 6.1 % (0-10); NRBC Flagged by Analyzer 0 % (0-5); Neutrophil # 4.55 X10^3/uL (2.7-7.7); Neutrophil % 64.1 % (47-70); Platelet Count 292 K/mm3 (150-450); RBC Distribution Width CV 13.9 % (11.6-14.6); RBC Distribution Width SD 48.4 fl (35.1-43.9); Red Blood Count 4.53 M/mm3 (4.2-5.4); White Blood Count 7.1 K/mm3 (4.4-11.0)
[2023-01-21 12:55] LABS: Vitamin D,25 Hydroxy 15.4 ng/mL
[2023-01-21 13:10] LABS: ALB/GLOB Ratio 1.1 RATIO (0.9-2.4); AST(SGOT) 26 U/L (15-37); Alanine Aminotransfer ALT/SGPT 23 U/L (13-56); Albumin, Serum 3.6 g/dL (3.2-5.0); Alkaline Phosphatase 68 U/L (45-117); Anion Gap 6 (5-15); BUN 15 mg/dL (7-18); BUN/Creat Ratio 27.2 RATIO (10-20); Calcium,Total 8.9 mg/dL (8.5-10.1); Chloride 108 mmol/L (98-107); Cholesterol 205 mg/dL (200); Creatinine, Serum 0.55 mg/dL (0.55-1.02); EST Glomerular Filtration Rate 116 mL/min (>60); Est Glom Filt Rate - Afr Amer 140 mL/min (>60); Globulin 3.3 g/dL (2.2-4.2); Glucose 85 mg/dL (74-106); High Density Lipoprotein 106 mg/dL; Potassium 3.6 mmol/L (3.5-5.1); Protein, Total 6.9 g/dL (6.4-8.2); Sodium Level 141 mmol/L (136-145); Triglycerides 64 mg/dL; Very Low Density Lipoprotein 13 mg/dL (5-40)
== END | disposition home or self-care (01) ==
PROVIDERS: PCP Nurse Practitioner Family; Referring Provider Nurse Practitioner Family; Visit Provider Nurse Practitioner Family
DX: E78.5 Hyperlipidemia, unspecified (principal); J18.9 Pneumonia, unspecified organism; E55.9 Vitamin D deficiency, unspecified
CPT/HCPCS: 36415; 80053; 80061; 82306; 85025

== ENCOUNTER → 2023-02-04 | Outpatient (CLI) | payer BC, SELFPAY ==
--- NOTE | 2023-02-04 08:51 | BD_ITS ---
STUDY: DUAL ENERGY X-RAY ABSORPTIOMETRY / DXA REASON FOR EXAM: Female, 72 years old. M810 TECHNIQUE: Bone Mineral Density (BMD) measurements of lumbar spine and bilateral hips were obtained. COMPARISON: Comparison is made with prior study October 16, 2016. FINDINGS: Lumbar Spine (L1-L4): g/cm2 (0.591) / T-score (-4.1) / Z-score (-1.9) Findings are suggestive of osteoporosis with a high fracture risk. Left Femur Total: g/cm2 (0.432) / T-score (-4.2) / Z-score (-2.7) Left Femoral Neck: g/cm2 (0.364) / T-score (-4.4) / Z-score (-2.6) Right Femur Total: g/cm2 (0.433) / T-score (-4.2) / Z-score (-2.6) Right Femoral Neck: g/cm2 (0.436) / T-score (-3.7) / Z-score (-1.9) The T-Scores on the most recent prior examination were: Lumbar Spine (L1-L4): There has been worsening of bone density since the previous examination. Left Femur Total: which represents a worsening of 22.5%. Right Femur Total: which represents a worsening of 24.7%. BD/Dexa Bone Density Study IMPRESSION: The patient is considered osteoporotic as outlined below according to World Alex[employer] Organization (WHO) criteria with a high fracture risk. There has been worsening of bone density since the previous examination. Reference Information: The T-score is the number of standard deviations above or below the standard which is normal for young adults at their peak bone mineral density. The World Health Organization (WHO) interprets the T-scores as follows: Above -1 Normal bone density Between -1 and -2.5 Osteopenia Equal to / or below -2.5 Osteoporosis As a practical clinical guideline, osteopenia may be graded as follows: Mild -1 through -1.5 Moderate -1.6 through -2.0 Severe -2.1 through -2.4 The Z-score is the number of standard deviations above or below age-matched controls. A Z-score of less than -1.5 would be considered abnormal. References: 1. NIH Osteoporosis and Related Bone Diseases www osteo.org 2. International Society for Clinical Densitometry www iscd.org 3. National Osteoporosis Foundation www nof.org Electronically Signed: Calin Lagos MD at 10:35 EDT ,
== END | disposition home or self-care (01) ==
LOC: OPBD 08:47
PROVIDERS: PCP Nurse Practitioner Family; Referring Provider Nurse Practitioner Family; Visit Provider Nurse Practitioner Family
DX: M81.0 Age-related osteoporosis without current pathological fracture (principal)
CPT/HCPCS: 77080

== ENCOUNTER → 2023-06-05 | Outpatient (CLI) | payer BC, SELFPAY ==
--- NOTE | 2023-06-05 13:58 | CT_ITS ---
EXAM: CT CHEST, LUNG CANCER SCREENING WITHOUT INTRAVENOUS CONTRAST CLINICAL INDICATION: SCREENING smoker for greater than 35 years, 10 pack per day. Shortness of breath and COPD. TECHNIQUE: Helically acquired images were obtained of the chest without intravenous contrast using low dose (LDCT) lung cancer screening protocol. This CT exam was performed using one or more of the following dose reduction techniques: automated exposure control, adjustment of the mA and/or kV according to patient size, and/or use of iterative reconstruction technique. COMPARISON: 05/19/2022, 05/13/2021, 05/09/2020. FINDINGS: LUNGS AND PLEURAL SPACES: Apical bullae and blebs. Diffuse centrilobular emphysema. 7 mm nodule in the medial right upper lobe is unchanged. (Image 35, series 2). No additional pulmonary nodules are identified. Mild biapical pulmonary parenchymal scarring. Overall pulmonary hyperinflation. No pleural effusion or thickening. No pneumothorax. HEART: Coronary artery calcifications. Heart size is normal. No pericardial effusion. MEDIASTINUM: No significant abnormality. No mediastinal or hilar adenopathy. Esophagus is unremarkable. No hiatal hernia. THYROID: No significant abnormality. No thyroid lesions. BONES/JOINTS: Degenerative changes in the spine. No suspicious lytic or blastic abnormality. VASCULATURE: Atherosclerosis of the aorta and its branch vessels. LYMPH NODES: No significant abnormality. No enlarged lymph nodes. CT/Low Dose CT Lung Screening IMPRESSION: 1. 7 mm nodule in the medial right upper lobe is unchanged. (Image 35, series 2). ACR Lung CT Screening Reporting And Data System (Lung-RADS) score: 2 - Benign Appearance or Behavior. Recommend continued annual screening with a low-dose CT (LDCT) in 12 months. 2. Apical bullae and blebs. Diffuse centrilobular emphysema. Electronically Signed: Jose Martin DO at 19:53 EST ,
== END | disposition home or self-care (01) ==
PROVIDERS: PCP Nurse Practitioner Family; Referring Provider Nurse Practitioner Family; Visit Provider Nurse Practitioner Family
DX: Z12.2 Encounter for screening for malignant neoplasm of respiratory organs (principal); F17.210 Nicotine dependence, cigarettes, uncomplicated
CPT/HCPCS: 71271

== ENCOUNTER 2023-06-21 09:22 | Emergency (ER) | payer BC, SELFPAY ==
[2023-06-21 09:23] VITALS: BP 132/73; PULSE 91; RESP 16; TEMP 36.6; O2SAT 100
[2023-06-21 09:25] VITALS: BMI 13.4
--- NOTE | 2023-06-21 09:33 | EKG12_ITS ---
Test Reason : SOB CP Blood Pressure : / mmHG Vent. Rate : 088 BPM Atrial Rate : 088 BPM P-R Int : 118 ms QRS Dur : 084 ms QT Int : 390 ms P-R-T Axes : 077 -06 040 degrees QTc Int : 471 ms Normal sinus rhythm Normal ECG Confirmed by AMPARO ELIAS, EDEN ([id number]), social media editor CORNEL BERG ([id number]) on 06/23/2023 8:34:05 AM Referred By: SEVERINO Confirmed By:EDEN CHRISTENSEN MD
--- NOTE | 2023-06-21 09:33 | RAD_ITS ---
EXAM: XR CHEST, 2 VIEWS CLINICAL INDICATION: pain TECHNIQUE: Frontal and lateral views of the chest. COMPARISON: XR Chest dated 11/25/2022 FINDINGS: LUNGS AND PLEURAL SPACES: Hyperinflation suggesting emphysema. Post inflammatory changes at the lung apices. No airspace opacification of the lungs. HEART: Normal heart size. MEDIASTINUM: No mediastinal or hilar mass. BONES/JOINTS: No acute abnormality. RAD/Chest PA and Lateral IMPRESSION: No acute cardiopulmonary abnormality. COPD. Electronically Signed: Vernon Cross MD at 10:23 EST ,
--- NOTE | 2023-06-21 09:33 | EX.ED.DYSGE1 ---
HPI History of Present Illness Chief Complaint: Chest Pain Informant: patient Onset/Context/Timing Onset: Yesterday Context: Gradual Onset Timing: Waxes and wanes Narrative Narrative: Patient presents secondary to right lateral chest wall pain. She states it started yesterday. She does have a history of severe COPD and has home oxygen to use as needed. She states it feels like when she has had pneumonia or pleurisy in the past. She did use a steroid inhaler which helped her symptoms. She does not believe she has had a fever. She has had a slight increase in cough. [facility] Medical History Cataract Collapsed lung COPD (chronic obstructive pulmonary disease) Osteoporosis Pleurisy Port placement VATS bullectomy/doxy peurodesis (left) Visual disturbances, right eye Home Medications albuterol sulfate 2.5 mg/3 mL (0.083 %) solution for nebulization 2.5 mg (3 mL) inhalation Q4H PRN Sob &/Or Wheezing #180 mL 12/01/22 [Rx Last Taken Unknown] albuterol sulfate 90 mcg/actuation aerosol inhaler (Ventolin HFA) 2 puff inhalation Q4H PRN shortness of breath or wheezing #18 grams 12/01/22 [Rx Last Taken Unknown] budesonide 160 mcg-glycopyr 9 mcg-formot 4.8 mcg/actuation HFA inhaler (Breztri Aerosphere) 2 inh inhalation BID #10.7 grams 12/01/22 [Rx Last Taken Unknown] doxycycline monohydrate 100 mg capsule 100 mg PO BID #20 CAPSULES 06/21/23 [Rx Last Taken Unknown] prednisone 20 mg tablet 40 mg (2 x 20 mg) PO DAILY #8 tabs 06/21/23 [Rx Last Taken Unknown] Allergy/AdvReac Type Severity Reaction Status Date / Time No Known Allergies Allergy Verified 06/21/23 09:25 Family History Mother Hypoglycemia Neuropathy Thyroid disorder Hypertension Heart disease Diverticulitis Father COPD (chronic obstructive pulmonary disease) Surgical History History of bilateral mastectomy History of breast biopsy History of cataract extraction History of exploratory laparotomy Social History Smoking Status: Heavy Smoker (>10/day) alcohol intake: never substance use type: does not use ROS ROS ED Constitutional Constitutional ED: Denies chills or fever(s) Eyes Eyes: Denies discharge from eye(s) ENT ENT ED: Denies discharge from eye(s), rhinorrhea or sore throat Cardiovascular Cardiovascular: Reports chest pain; Denies palpitations Respiratory/Chest Respiratory/Chest: Reports cough and dyspnea Gastrointestinal Gastrointestinal: Denies abdominal pain, nausea or vomiting Musculoskeletal Musculoskeletal: Denies back pain or extremity pain Integumentary Denies Abrasions or rash Neurologic Neurologic: Denies headache(s) or weakness Psychiatric Psychiatric: Denies anxiety or depression Allergic/Immunologic Allergic/Immunologic ED: Denies lip swelling or urticaria EXAM Physical Exam Const Vital Signs: 06/21/23 09:23 06/21/23 09:33 Temperature 97.9 F Temperature Source Temporal Pulse Rate 91 Respiratory Rate 16 Respiratory Effort Short of Breath Blood Pressure 132/73 H Blood Pressure Mean 92 Pulse Ox 100 Oxygen Delivery Method Room Air Positive cachectic General Appearance ED: cachectic Nutritional Appearance: cachectic HEENT Reports moist mucous membranes Eyes EOMs intact bilaterally Chest Wall inspection of chest normal and palpation of chest normal Resp normal respiratory effort Resp Narrative: Scattered wheezes bilaterally. Cardio regular rate and regular rhythm GI non-tender Palpation: soft Extremity normal to inspection Extremity Narrative: No calf tenderness or edema. Neuro oriented x3 Neuro Narrative: No focal neurologic deficit. Psych mental status grossly normal Skin no rashes or lesions noted MDM MDM MDM Narrative Medical decision making narrative: EKG obtained to evaluate for cardiac arrhythmia/ischemia. Chest x-ray obtained to evaluate for acute lung pathology, cardiac size, or mediastinal abnormality. Radiography Chest X-Ray - ED: 2 View, Read by ED Physician, Chronic Changes and No Infiltrates EKG Initial EKG: Attestation: I personally reviewed and interpreted this EKG as follows: Interpretation: Sinus Rhythm (Sinus at 88 with no acute ischemia.) Treatment and Re-Evaluation :: 2 view chest x-ray per my interpretation reveals chronic changes with COPD. No evidence of infiltrate at this time. No pneumothorax. EKG is sinus rhythm with no acute ischemia. Patient's symptoms are consistent with pleurisy as well as a COPD flare. We discussed possibility of blood clot but she does not have significant risk factors. She states this feels like either pneumonia or pleurisy which she has had previously. I will treat her with antibiotics as well as steroids. Return instructions are given and patient is comfortable with this plan. Discharge Plan Triage Chief Complaint: Chest Pain ED Provider: Katlin Hsu Dx/Rx/DC Orders Clinical Impression: COPD exacerbation, Pleurisy Instructions: ED COPD Flare, ED Pleurisy Prescriptions: New prednisone 20 mg tablet 40 mg PO DAILY Qty: 8 0RF doxycycline monohydrate 100 mg capsule 100 mg PO BID Qty: 20 0RF No Action albuterol sulfate 2.5 mg /3 mL (0.083 %) solution for nebulization 2.5 mg inhalation Q4H PRN (Reason: Sob &/Or Wheezing) Qty: 180 11RF albuterol sulfate [Ventolin HFA] 90 mcg/actuation HFA aerosol inhaler 2 puff INHALATION Q4H PRN (Reason: shortness of breath or wheezing) Qty: 18 5RF Breztri Aerosphere 160-9-4.8 mcg/actuation HFA aerosol inhaler 2 inh inhalation BID Qty: 10.7 11RF Primary Care Provider: Lena Suarez Referrals: Lena Suarez, CHIEF MEDICAL DIRECTOR-C [Primary Care Provider] - 3-5 Days if not improving Disposition Disposition: Home, Self Care
--- OUTSIDE RECORDS SUMMARY | 2023-06-21 10:02 | XMS RPT_ITS | CCD ---
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 100 tablet 1 11/24/2017 Active Problems Active Problems Problem Classification Problem Date Documented Da te Episodic/Chronic Chronic obstructive pulmonary disease and bronchiectasis (2 sources) Chronic obstructive lung disease; Translations: [Chronic obstructive pulmonary disease, unspecified] Onset: 11-19-2017 11-19-2017 Chronic Nutritional deficiencies (1 source) Deficiency of macronutrients; Translations: [Unspecified severe protein-calorie malnutrition] Onset: 11-19-2017 11-24-2017 Chronic Other gastrointestinal disorders (1 source) Oropharyngeal dysphagia; Translations: [Dysphagia, oropharyngeal phase] Episodic Substance-related disorders (1 source) Smoker; Translations: [Nicotine dependence, unspecified, uncomplicated] Onset: 11-19-2017 11-24-2017 Chronic Past or Other Problems Problem Classification Problem Date Documented Date Episodic/Chronic Administrative/social admission (1 source) Discharge status; Translations: [Encounter for administrative examinations, unspecified] Onset: 11-19-2017 11-24-2017 Episodic Cancer of breast (1 source) History of malignant neoplasm of breast; Translations: [Personal history of malignant neoplasm of breast] Onset: 11-19-2017 11-24-2017 Episodic Other nervous system disorders (1 source) Postoperative pain ; Translations: [Other acute postprocedural pain] Onset: 11-21-2017 11-24-2017 Episodic Pleurisy; pneumothorax; pulmonary collapse (1 source) Left pneumothorax; Translations: [Pneumothorax, unspecified] Onset: 11-18-2017 11-24-2017 Episodic Results Test Name Value Interpretation Reference Range Facil ity Encounters Encounter Date Encounter Type Care Provider Facility Start: 07-08-2021 Telephone encounter Noe wasserman MD Work Phone: General Surgery Procedures Date Procedure Procedure Detail Performing Clinician Start: 05-23-2021 Colonoscopy Noe tong MD Work Phone: Plan of Treatment Date Care Activity Detail Author Start: 05-23-2026 Colonoscopy COLONOSCOPY [facility] Start: 05-23-2026 COLORECTAL CANCER SCREENING COLORECTAL CANCER SCREENING [facility] Start: 02-20-2022 Influenza vaccination INFLUENZA (Sea son Ended) [facility] Start: 07-28-2021 COVID-19 VACCINE (4 - Booster for Pfizer series) COVID-19 VACCINE (4 - Booster for Pfizer series) [facility] Start: 06-22-2021 ADVANCE DIRECTIVE DISCUSSION ADVANCE DIRECTIVE DISCUSSION [facility] Start: 11-24-2020 DIABETES SCREEN DIABETES SCREEN [facility] Start: 06-09-2018 FECAL OCCULT BLOOD FECAL OCCULT BLOO D [facility] Start: 2017 BONE DENSITY BONE DENSITY [facility] Start: 2002 SHINGRIX VACCINE (1 of 2) SHINGRIX V ACCINE (1 of 2) [facility] Start: 1997 COLOGUARD (FIT-DNA) COLOGUARD (FIT-D NA) [facility] Start: [address] COLONOGRAPHY [facility] Start: 1997 LIPID SCREEN LIPID SCREEN [facility] Start: 1997 SIGMOIDOSCOPY SIGMOIDOSCOPY [facility] Start: 1992 Mammography MAMMOGRAM [facility] Start: 08-28-1971 Urine microalbumin profile DTAP,TDAP ,TD (1 - Tdap) [facility] Start: 1970 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 NADINE DISEASE VISIT ANNUAL PCP TEAM CHRONIC DISEASE VISIT [facility] Start: 1970 HEPATITIS C SCREENING HEPATITIS C SC MICHAELNING [facility] Start: 1970 SPIROMETRY SPIROMETRY [facility] Start: 1964 Adult depression scr eening assessment DEPRESSION SCREENING [facility] Start: 1958 PNEUMOCOCCAL: 65+ (1 - PCV) PNEUMOCOCCAL: 65+ (1 - PCV) [facility] Payers Date Payer Category Payer Unknown [employer]HAEL [employer] PPO OOS [id number] 2019-Present [phone] [address] [place] [address] PPO [id number] 2017 Medicare MEDICARE MEDICAR E A [id number] 2017-Present [phone] [address] [place] [address] Medicare [id number] Social History Date Type Detail Facility [facility]: [facility] Start: 11-12-1986 History of tobacco use Cigarette Smo ker [facility] Start: 04-30-2021 Cigarettes smoked cu rrent (pack per day) - Reported 1 [facility] Start: 04-30-2021 Tobacco use and exposure Smoke less tobacco non-user [facility] Start: 07-08-2021 Alcohol intake Lifetime non-d tyson (finding) [facility] Start: 04-30-2021 History SDOH Alcohol Frequency 1 [facility] Start: 1950 Sex Assigned At Not on file [facility] Start: 07-09-2021 End: 08-08-2021 Exposure to SARS-CoV-2 (event) Not sure [facility] Progress note 08-08-2021 Note Date & Type Note Facility 08-08-2021 Note HNO ID: [id number] Author: Noe Curry MD Service: ? Author Type: Physician Type: Progress Notes Filed: 08/08/2021 2:36 PM Note Text: Subjective: Patient is status post upper endoscopy completed at [facility] on 08/01/2021. Did a biopsy of her stomach which was negative for H. pylori but did a biopsy of her distal esophagus which showed no signs of metaplasia or dysplasia no evidence of eosinophilia. Patient still feels like she has a lump in the back of her throat at times is not having any nausea or vomiting. Objective:Blood pressure 102/64, pulse 116, temperature 37.5 ?C (99.5 ?F), height 162.6 cm (5' 4 ), weight 36.7 kg (81 lb), SpO2 93 %. Abdomen is soft and nontender Assessment:Oropharyngeal dysphagia (primary encounter diagnosis) Plan: At this point I think it is brasher for her to see an ear nose and throat doctor to make sure that there is nothing going on in the back of her throat. If this work-up is negative then the next step would be to get esophageal manometry. [facility] Progress note 07-08-2021 Note Date & Type Note Facility 07-08-2021 Note HNO ID: [id number] Author: Noe Curry MD Service: ? Author Type: Physician Type: Progress Notes Filed: 07/19/2021 1:36 PM Note Text: HISTORY AND PHYSICAL Stephan Miller 1950 REFERRING PHYSICIAN: Noe Curry MD CHIEF COMPLAINT: Follow Up (colonoscopy, difficulty swallowing since procedure) HPI: The patient is a 70 year old female referred for endoscopy. Stephan notes no history of colon complaints. The patient notes the following upper complaints: Stephan denies abdominal pain.. Stephan denies heartburn. Stephan notes dysphagia. Stephan denies a history of ulcers/ peptic ulcer disease. Stephan has not undergone prior upper endoscopy. PAST MEDICAL HISTORY Diagnosis Date - Abnormal finding on mammography, microcalcification - Breast cancer (HCC) - COPD (chronic obstructive pulmonary disease) (HCC) - Other specified abdominal hernia without obstruction or gangrene left upper abdomen - Pneumothorax on left 11/16/2017 - Sleep apnea PAST SURGICAL HISTORY Procedure Laterality Date - ABDOMINAL SURGERY HX - BREAST BIOPSY W/STEREOTACTIC GUIDANCE Right 11/26/2016 - BREAST BX US GUIDED 1999 - BREAST SURGERY HX - COLON SURGERY HX - COLONOSCOP W/ OR W/O [facility] SPEC unsure of date - COLONOSCOP W/ OR W/O [facility] SPEC 05/23/2021 - GI SMALL BOWEL MULTIPLE SERIES 2006 - MASTECTOMY HX - PAST SURGICAL HISTORY OF Left 11/20/2017 Lt VATS, bullectomy, Doxycycline pleurodesis - PNEUMOTHORAXCHEST TUBE 11/17/2017 left pneumocath placement [facility] - PORT - TONSILLECTOMY HX Current Outpatient Medications Medication Sig - MEDICATION, NON-DATABASE Inhale as instructed as needed. triliogy - acetaminophen (TYLENOL) 500 mg tablet Take 2 tablets by mouth every 8 hours. - albuterol HFA (PROVENTIL HFA, VENTOLIN HFA) 90 mcg/actuation inhaler INHALE 2 (TWO) PUFFS EVERY 4 HOURS NEEDED FOR SHORTNESS OF BREATH OR FOR WHEEZING - xooerejetiu-ooodijwbi-zbqrlila 100-62.5-25 mcg Trelegy Ellipta 100 mcg-62.5 mcg-25 mcg powder for inhalation (Patient not taking: Trelegy Ellipta 100 mcg-62.5 mcg-25 mcg powder for inhalation) - ipratropium-albuterol (DUONEB) 0.5 mg-3 mg(2.5 mg base)/3 mL nebu Inhale as instructed. (Patient not taking: Reported on 07/08/2021 ) - polyethylene glycol 3350 (MIRALAX, GLYCOLAX) 17 gram packet Take 1 Packet by mouth once daily. (Patient not taking: Reported on 11/30/2017 ) - ibuprofen (MOTRIN) 400 mg tablet Take 1 tablet by mouth every 6 hours as needed. (Patient not taking: Reported on 07/08/2021 ) - magnesium hydroxide (MOM) 400 mg/5 mL suspension Take 30 mL by mouth daily at bedtime. (Patient not taking: Reported on 07/08/2021 ) - alendronate (FOSAMAX) 70 mg tablet (Patient not taking: Reported on 07/08/2021 ) No current facility-administered medications for this visit. ALLERGIES: Patient has no known allergies. PERSONAL HISTORY: Social History Tobacco Use - Smoking status: Current Every Day Smoker Packs/day: 1.00 Types: Cigarettes Start date: 11/12/1986 - Smokeless tobacco: Never Used Vaping Use - Vaping Use: Former Substance Use Topics - Alcohol use: Never - Drug use: Never FAMILY HISTORY: FAMILY HISTORY Problem Relation Age of Onset - other (othr) Mother polio - Hypertension Mother - other (pacemaker) Mother - COPD Father REVIEW OF SYMPTOMS: The review of systems data was entered by the nurse and reviewed by ri Nursing Notes: Vivian Connor RN 07/08/2021 2:56 PM Signed REVIEW OF SYSTEMS: General: The patient NOTES fatigue, denies weight loss, denies weight gain, denies feeling hot, and denies feelings of cold. Eyes: The patient denies glaucoma, denies eye injury/surgery, does not wear glasses or contacts. Ear/Nose/Throat: The patient denies allergies, denies hayfever, denies ear infections, and denies bloody noses. Cardiovascular: The patient denies chest pain, denies heart disease, denies high blood pressure,denies cardiac stent, denies prior heart attack, denies irregular heart beat, denies high cholesterol, denies poor circulation, denies heart failure, other cardiac issues, denies claudication, denies cold feet, denies peripheral arterial stent. Respiratory: The patient denies tuberculosis, denies pneumonia, NOTES frequent cough, denies pulmonary embolism, NOTES shortness of breath, and denies coughing up blood. Gastrointestinal: The patient NOTES difficulty swallowing, denies acid reflux, denies ulcers, denies vomiting, denies jaundice/hepatitis, denies gallbladder problems, denies black or tarry stools, denies hemorrhoids, denies bleeding from rectum, denies diverticulitis, denies constipation, denies diarrhea, denies loss of stool control, and NOTES hernias. Kidney/Bladder: The patient denies kidney stones, denies urine infections, and denies bloody urine. Skin: The patient denies a history of skin cancer, denies bleeding/changing moles, and denies a history of skin rash. Neurolog (more content not included)... [facility] Note 07-08-2021 Telephone Encounter - Ceci Ramirez - 07/08/2021 2:50 PM EST Note Date & Type Note Facility 07-08-2021 Miscellaneous Notes 07/25/21 IAN Curry @ [facility] documented in this encounter [facility] History of Past illness Narrative 05-23-2021 Note Date & Type Note Facility documented as of this encounter (statuses as of 12/18/2021) [facility] Progress note 04-30-2021 Note Date & Type Note Facility 04-30-2021 Note HNO ID: [id number] Author: Patricia Quach PA-C Service: ? Author Type: Physician Wagon Driver Type: Progress Notes Filed: 04/30/2021 11:41 AM Note Text: HISTORY AND PHYSICAL Stephan Miller 1950 REFERRING PHYSICIAN: Deshawn Torrez MD CHIEF COMPLAINT: Consult (colonoscopy consult) HPI: The patient is a 70 year old female referred for endoscopy. Stephan notes no colon complaints. Patient denies any change in bowel habits, weight changes, blood in stools, black tarry stools or abdominal pain. Denies family history of colon issues. The patient notes no upper GI complaints. Stephan has undergone prior endoscopy. Per PCP notes, most recent colonoscopy was performed by Dr. Curry at [facility] in 04/2017 with finding of tubular adenoma, 3 year repeat colonoscopy recommended. Patient's past medical history is significant for right breast cancer, COPD, s/p left VATS and bullectomy, ?past small bowel obstruction. Patient follows with Dr. Jaida Kwong in primary care. She is maintained on inhalers regularly for COPD. She denies any worsening shortness of breath and denies chest pain. Denies problems with sedation in the past. PAST MEDICAL HISTORY Diagnosis Date - Abnormal finding on mammography, microcalcification - Breast cancer (HCC) - COPD (chronic obstructive pulmonary disease) (HCC) - Other specified abdominal hernia without obstruction or gangrene left upper abdomen - Pneumothorax on left 11/16/2017 PAST SURGICAL HISTORY Procedure Laterality Date - BREAST BIOPSY W/STEREOTACTIC GUIDANCE Right 11/26/2016 - BREAST BX US GUIDED 1999 - COLONOSCOP W/ OR W/O [facility] SPEC unsure of date - GI SMALL BOWEL MULTIPLE SERIES 2006 - PAST SURGICAL HISTORY OF Left 11/20/2017 Lt VATS, bullectomy, Doxycycline pleurodesis - PNEUMOTHORAXCHEST TUBE 11/17/2017 left pneumocath placement [facility] Current Outpatient Medications Medication Sig - acetaminophen (TYLENOL) 500 mg tablet Take 2 tablets by mouth every 8 hours. (Patient taking differently: Take 1,000 mg by mouth as needed. ) - polyethylene glycol 3350 (MIRALAX, GLYCOLAX) 17 gram packet Take 1 Packet by mouth once daily. (Patient not taking: Reported on 11/30/2017 ) - ibuprofen (MOTRIN) 400 mg tablet Take 1 tablet by mouth every 6 hours as needed. - magnesium hydroxide (MOM) 400 mg/5 mL suspension Take 30 mL by mouth daily at bedtime. - alendronate (FOSAMAX) 70 mg tablet No current facility-administered medications for this visit. ALLERGIES: Patient has no known allergies. PERSONAL HISTORY: Social History Tobacco Use - Smoking status: Former Smoker Packs/day: 1.00 Types: Cigarettes Start date: 11/12/1986 Quit date: 11/08/2017 Years since quittin.4 - Smokeless tobacco: Never Used Substance Use Topics - Alcohol use: Not on file - Drug use: Not on file FAMILY HISTORY: No family history on file. REVIEW OF SYMPTOMS: The review of systems data was entered by the nurse and reviewed by ri Nursing Notes: Vivian Connor RN 04/30/2021 9:38 AM Signed REVIEW OF SYSTEMS: General: The patient NOTES fatigue, denies weight loss, denies weight gain, denies feeling hot, and denies feelings of cold. Eyes: The patient denies glaucoma, denies eye injury/surgery, wears glasses or contacts. Ear/Nose/Throat: The patient denies allergies, denies hayfever, denies ear infections, and denies bloody noses. Cardiovascular: The patient denies chest pain, denies heart disease, denies high blood pressure,denies cardiac stent, denies prior heart attack, denies irregular heart beat, denies high cholesterol, denies poor circulation, denies heart failure, other cardiac issues, denies claudication, denies cold feet, denies peripheral arterial stent. Respiratory: The patient denies tuberculosis, denies pneumonia, NOTES frequent cough, denies pulmonary embolism, NOTES shortness of breath, and denies coughing up blood. Gastrointestinal: The patient denies difficulty swallowing, denies acid reflux, denies ulcers, denies vomiting, denies jaundice/hepatitis, denies gallbladder problems, denies black or tarry stools, denies hemorrhoids, denies bleeding from rectum, denies diverticulitis, denies constipation, denies diarrhea, denies loss of stool control, and NOTES hernias. Kidney/Bladder: The patient denies kidney stones, denies urine infections, and denies bloody urine. Skin: The patient denies a history of skin cancer, denies bleeding/changing moles, and denies a history of skin rash. Neurologic: The patient denies a history of epilepsy/convulsions, denies headaches, denies head/spinal injuries, and denies stroke/TIA. Psychiatric: The patient denies psychiatric medications, denies depression, and denies voices, denies substance abuse. Endocrine: The patient denies thyroid disorders, denies diabetes, and denies hormonal problems. Hematologic: The patient denies a history of bruising, denies blee (more content not included)... 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[facility] Reason for Visit (unrecogniz ed section and content) Care Teams (unrecognized sec tion and content) INFORMATION SOURCE (unrecogn ized section and content) FOR RECORDS PERTAINING TO PATIENTS WHO ARE OR HAVE BEEN ENROLLED IN A CHEMICAL DEPENDENCY/SUBSTANCEABUSE PROGRAM, SOME INFORMATION MAY BE OMITTED. This clinical summary was aggregated from multiple sources. Caution should be exercised in using it in the provision of clinical care. This summary normalizes information from multiple sources, and as a consequence, information in this document may materially change the coding, format and clinical context of patient data. In addition, data may be omitted in some cases. CLINICAL DECISIONS SHOULD BE BASED ON THE PRIMARY CLINICAL RECORDS. [employer] [facility] provides no warranty or guarantee of the accuracy or completeness of information in this document.
[2023-06-21 10:08] VITALS: BP 139/71; PULSE 87; RESP 21; O2SAT 95
[2023-06-21] MEDS: predniSONE 20 MG Tablet 40 MG PO (10:08)
[2023-06-21] MEDS: Doxycycline 100 MG CAPSULE PO (10:08)
== END 2023-06-21 10:14 | disposition home or self-care (01) ==
PROVIDERS: Emergency Provider Emergency Medicine; PCP Nurse Practitioner Family; Visit Provider Emergency Medicine
DX: J44.1 Chronic obstructive pulmonary disease with (acute) exacerbation (principal); R09.1 Pleurisy; F17.200 Nicotine dependence, unspecified, uncomplicated; Z99.81 Dependence on supplemental oxygen
CPT/HCPCS: 71046; 93005; 99283; A4216

== ENCOUNTER 2023-08-23 06:11 | Emergency (ER) | payer BC, SELFPAY ==
[2023-08-23 06:13] VITALS: BP 141/76; PULSE 106; RESP 23; TEMP 36.7; O2SAT 99; BMI 13.2
--- NOTE | 2023-08-23 06:39 | EKG12_ITS ---
Test Reason : SOB/CP Blood Pressure : / mmHG Vent. Rate : 095 BPM Atrial Rate : 095 BPM P-R Int : 134 ms QRS Dur : 082 ms QT Int : 352 ms P-R-T Axes : 085 050 075 degrees QTc Int : 442 ms Normal sinus rhythm Normal ECG Confirmed by Erasmo Davis ([id number]), assistant production editor CORNEL BERG ([id number]) on 08/24/2023 10:33:48 AM Referred By: Confirmed By:Erasmo Davis
[2023-08-23] MEDS: Oxycodone/Apap 5/325 Tablet PO (06:43)
[2023-08-23] MEDS: predniSONE 20 MG Tablet 60 MG PO (06:43)
--- OUTSIDE RECORDS SUMMARY | 2023-08-23 06:48 | XMS RPT_ITS | CCD ---
Author Name Unknown Address [address] [place] [address] Organization [facility] Care Team Providers Care Motor Pool Clerk Name Role Phone Jaida Kwong Primary Care [...] Activity Detail Author Start: 05-23-2026 Colonoscopy COLONOSCOPY [facility] Start: 05-23-2026 COLORECTAL CANCER SCREENING COLORECTAL CANCER SCREENING [facility] Start: 02-20-2022 Influenza vaccination INFLUENZA (Sea son Ended) [facility] Start: 07-28-2021 COVID-19 VACCINE (4 - Booster for Pfizer series) COVID-19 VACCINE (4 - Booster for Pfizer series) [facility] Start: 06-22-2021 ADVANCE DIRECTIVE DISCUSSION ADVANCE DIRECTIVE DISCUSSION [facility] Start: 11-24-2020 DIABETES SCREEN DIABETES SCREEN [facility] Start: 06-09-2018 FECAL OCCULT BLOOD FECAL OCCULT BLOO D [facility] Start: 2017 BONE DENSITY BONE DENSITY [facility] Start: 2002 SHINGRIX VACCINE (1 of 2) SHINGRIX V ACCINE (1 of 2) [facility] Start: 1997 COLOGUARD (FIT-DNA) COLOGUARD (FIT-D NA) [facility] Start: [address] COLONOGRAPHY [facility] Start: 1997 LIPID SCREEN LIPID SCREEN [facility] Start: 1997 SIGMOIDOSCOPY SIGMOIDOSCOPY [facility] Start: 1992 Mammography MAMMOGRAM [facility] Start: 08-28-1971 Urine microalbumin profile DTAP,TDAP ,TD (1 - Tdap) [facility] Start: 1970 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 NADINE DISEASE VISIT ANNUAL PCP TEAM CHRONIC DISEASE VISIT [facility] Start: 1970 HEPATITIS C SCREENING HEPATITIS C SC MICHAELNING [facility] Start: 1970 SPIROMETRY SPIROMETRY [facility] Start: 1964 Adult depression scr eening assessment DEPRESSION SCREENING [facility] Start: 1958 PNEUMOCOCCAL: 65+ (1 - PCV) PNEUMOCOCCAL: 65+ (1 - PCV) [facility] Payers Date Payer Category Payer Unknown MICHAEL BLUE CARD PPO OOS [id number] 2019-Present [phone] [address] [place] [address] PPO [id number] 2017 Medicare MEDICARE MEDICAR E A [id number] 2017-Present [phone] [address] [place] [address] Medicare [id number] Social History Date Type Detail Facility [facility] Start: 11-12-1986 History of tobacco use Cigarette Smo ker [facility] Start: 04-30-2021 Cigarettes smoked cu rrent (pack per day) - Reported 1 [facility] Start: 04-30-2021 Tobacco use and exposure Smoke less tobacco non-user [facility] Start: 07-08-2021 Alcohol intake Lifetime non-d tyson (finding) [facility] Start: 04-30-2021 History SDOH Alcohol Frequency 1 [facility] Start: 1950 Sex Assigned At Not on file [facility] Start: 07-09-2021 End: 08-08-2021 Exposure to SARS-CoV-2 (event) Not sure [facility] Progress note 08-08-2021 Note Date & Type Note Facility 08-08-2021 Note HNO ID: [id number] Author: Noe Curry MD Service: ? Author Type: Physician Type: Progress Notes Filed: 08/08/2021 2:36 PM Note Text: Subjective: Patient is status post upper endoscopy completed at [facility] on 08/01/2021. Did a biopsy of her [...] step would be to get esophageal manometry. [facility] Progress note 07-08-2021 Note Date & Type Note Facility 07-08-2021 Note HNO ID: [id number] Author: Noe Curry MD Service: ? Author [...] SHORTNESS OF BREATH OR FOR WHEEZING - qrotmfqztan-llzsdglri-iosswmnd 100-62.5-25 mcg Trelegy Ellipta 100 mcg-62.5 mcg-25 [...] entered by the nurse and reviewed by nm Nursing Notes: Vivian Connor RN 07/08/2021 2:56 [...] skin rash. Neurolog (more content not included)... [facility] Note 07-08-2021 Telephone Encounter - Ceci Ramirez - 07/08/2021 2:50 PM EST Note Date & Type Note Facility 07-08-2021 Miscellaneous Notes 07/25/21 IAN Curry @ [facility] documented in this encounter [facility] History of Past illness Narrative 05-23-2021 Note Date & Type Note Facility documented as of this encounter (statuses as of 12/18/2021) [facility] Progress note 04-30-2021 Note Date & Type Note Facility 04-30-2021 Note HNO ID: [id number] Author: Patricia Quach PA-C Service: ? Author Type: Physician Logistician Type: Progress Notes Filed: 04/30/2021 11:41 AM [...] colonoscopy was performed by Dr. Curry at [facility] in 04/2017 with finding of tubular [...] GUIDED 1999 - COLONOSCOP W/ OR W/O [facility] SPEC unsure of date - GI SMALL BOWEL MULTIPLE SERIES 2006 - PAST SURGICAL HISTORY OF Left 11/20/2017 Lt VATS, bullectomy, Doxycycline pleurodesis - PNEUMOTHORAXCHEST TUBE 11/17/2017 left pneumocath placement [facility] Current Outpatient Medications Medication Sig - acetaminophen [...] entered by the nurse and reviewed by nm Nursing Notes: Vivian Connor RN 04/30/2021 9:38 [...] bruising, denies blee (more content not included)... 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 [email or web address] [facility]. provides no warranty or guarantee of the accuracy or completeness of information in this document.
--- NOTE | 2023-08-23 07:40 | RAD_ITS ---
EXAM: XR CHEST, 2 VIEWS CLINICAL INDICATION: cough TECHNIQUE: Frontal and lateral views of the chest. COMPARISON: No relevant prior studies available. FINDINGS: LUNGS AND PLEURAL SPACES: The lungs are quite hyperinflated consistent with COPD. Postinflammatory changes involve both lung apices. No pneumothorax or pleural effusion. HEART: Normal heart size. MEDIASTINUM: No mediastinal or hilar mass. BONES/JOINTS: No acute abnormality. RAD/Chest PA and Lateral IMPRESSION: No acute findings in the chest. COPD. Electronically Signed: Vernon Cross MD at 8:48 EST ,
--- NOTE | 2023-08-23 08:11 | EDS_ITS ---
HPI History of Present Illness Chief Complaint: Chest Other Informant: patient and spouse/S.O. Narrative Narrative: Patient is a 72-year-old female with past medical history of COPD on chronic oxygen as well as history of obstructive sleep apnea and osteoporosis. She states that she has a chronic cough because there is COPD but in the last 2 to 3 days the cough is worsened. She states has been no fever or chills and she denies any known sick contacts. She reports she is also now developed some right-sided chest discomfort. She states she does have history of pneumonia as well as spontaneous pneumothorax and has concern for this and therefore comes in for evaluation. [facility] Medical History (Updated 08/23/23 @ 08:[address] Shun Garnett, ) Cataract Collapsed lung COPD (chronic obstructive pulmonary disease) Osteoporosis Pleurisy Port placement VATS bullectomy/doxy peurodesis (left) Visual disturbances, right eye Home Medications albuterol sulfate 2.5 mg/3 mL (0.083 %) solution for nebulization 2.5 mg (3 mL) inhalation Q4H PRN Sob &/Or Wheezing #180 mL 12/01/22 [Rx Last Taken Unknown] budesonide 160 mcg-glycopyr 9 mcg-formot 4.8 mcg/actuation HFA inhaler (Breztri Aerosphere) 2 inh inhalation BID #10.7 grams 12/01/22 [Rx Last Taken Unknown] doxycycline monohydrate 100 mg capsule 100 mg PO BID #20 CAPSULES 06/21/23 [Rx Last Taken Unknown] prednisone 10 mg tablet 10 mg PO QDAY #90 tabs 07/15/23 [Rx Last Taken Unknown] albuterol sulfate 90 mcg/actuation aerosol inhaler (Ventolin HFA) 2 puff inhalation Q4H PRN shortness of breath or wheezing #18 grams 08/12/23 [Rx Last Taken Unknown] azithromycin 250 mg tablet (Zithromax Z-Jose Angel) See Rx Instructions PO .COMPLEX #6 tabs 08/23/23 [Rx Last Taken Unknown] methocarbamol 500 mg tablet 500 mg PO 4X/DAY PRN PRN Muscle pain/spasm #40 tabs 08/23/23 [Rx Last Taken Unknown] oxycodone-acetaminophen 5 mg-325 mg tablet (Percocet) 1 tab PO Q6H PRN pain 3 days #12 tabs 08/23/23 [Rx Last Taken Unknown] prednisone 20 mg tablet 40 mg (2 x 20 mg) PO DAILY 5 days #10 tabs 08/23/23 [Rx Last Taken Unknown] Allergy/AdvReac Type Severity Reaction Status Date / Time No Known Allergies Allergy Verified 06/21/23 09:25 Family History Mother Hypoglycemia Neuropathy Thyroid disorder Hypertension Heart disease Diverticulitis Father COPD (chronic obstructive pulmonary disease) Surgical History History of bilateral mastectomy History of breast biopsy History of cataract extraction History of exploratory laparotomy Social History Smoking Status: Heavy Smoker (>10/day) alcohol intake: never substance use type: does not use ROS ROS ED Constitutional Constitutional ED: Denies chills or fever(s) ENT ENT ED: Denies sore throat Cardiovascular Cardiovascular: Reports chest pain; Denies palpitations or racing heartbeat Respiratory/Chest Respiratory/Chest: Reports cough and dyspnea Gastrointestinal Gastrointestinal: Denies abdominal pain, diarrhea, nausea or vomiting Genitourinary Genitourinary ED: Denies dysuria Musculoskeletal Musculoskeletal: Denies myalgias Integumentary Denies rash Neurologic Neurologic: Denies headache(s) Hematologic/Lymphatic Hematologic/Lymphatic: Denies easy bleeding or easy bruising EXAM Physical Exam Const Vital Signs: 08/23/23 06:13 Temperature 98.0 F Temperature Source Oral Pulse Rate 106 H Respiratory Rate 23 H Blood Pressure 141/76 H Blood Pressure Mean 97 Pulse Ox 99 Oxygen Delivery Method Nasal Cannula Oxygen Flow Rate (L/min) 4 Positive well nourished and well developed General Appearance ED: well developed HEENT HEENT Narrative: No tongue or lip swelling no oral lesions no airway edema or compromise Eyes PERRL and EOMs intact bilaterally Neck supple and no JVD Neck Narrative: No nuchal rigidity or meningeal signs Chest Wall Chest Narrative: There is reproducible right anterior chest wall pain with palpation the patient states is the same pain she has been experiencing No obvious bony deformity or crepitance noted Resp normal respiratory effort Resp Narrative: Breath sounds are severely diminished throughout with faint expiratory wheeze consistent with history of COPD otherwise no nasal flaring or retractions or accessory muscle use Cardio regular rate and regular rhythm Rate: other Other Details: Heart is regular rate and rhythm Radial and carotid pulses equal and symmetric Extremity normal to inspection Extremity Narrative: No asymmetric edema no pitting edema negative Homans' sign bilaterally Neuro oriented x3, CN's II-XII intact bilaterally and no sensory deficits noted Sensorium / Orientation: alert Motor Exam: strength 5/5 throughout Psych mental status grossly normal Skin no rashes or lesions noted Skin Narrative: No overlying soft tissue changes to suggest trauma or infection MDM MDM MDM Narrative Medical decision making narrative: Patient arrived to the ER satting 98 to 100% on her normal oxygen. She reported increasing right-sided chest pain that occurred after a few days of increased cough. Differential diagnosis is for pneumonia versus pneumothorax versus acute coronary syndrome. An EKG was obtained which shows no signs of ischemia or STEMI. Chest x-ray revealed no pneumonia or pneumothorax. Patient was treated for musculoskeletal pain and had improvement of her symptoms. On reevaluation she remained hemodynamically stable and therefore as symptoms most likely correlate with chest wall discomfort from increased coughing and there is no pneumonia or pneumothorax and vitals are stable and EKG does not show signs of ischemia she is otherwise safe for discharge History & Record Review Discussion w/independent historian: Patient and Significant other Radiography Diagnostic Testing: Chest x-ray as interpreted by the emergency medicine physician reveals hyperinflated lungs consistent with COPD without pneumonia or pneumothorax or pleural effusion Discharge Plan Triage Chief Complaint: Chest Other ED Provider: Shun Garnett Dx/Rx/DC Orders Clinical Impression: Acute chest wall pain, Acute exacerbation of chronic obstructive pulmonary disease, Osteoporosis, Tobacco abuse Instructions: COPD: Wheezing and Chest Tightness, ED Strain Chest Wall Prescriptions: New oxycodone-acetaminophen [Percocet] 5-325 mg tablet 1 tab PO Q6H PRN (Reason: pain) 3 Days Qty: 12 0RF methocarbamol 500 mg tablet 500 mg PO 4X/DAY PRN PRN (Reason: Muscle pain/spasm) Qty: 40 0RF prednisone 20 mg tablet 40 mg PO DAILY 5 Days Qty: 10 0RF azithromycin [Zithromax Z-Jose Nagel] 250 mg tablet See Rx Instructions .ROUTE .COMPLEX Qty: 6 0RF Rx Instructions: For 250 mg dose pack: take 500 mg today (day 1), then 250 mg for 4 days (days 2-5) No Action albuterol sulfate 2.5 mg /3 mL (0.083 %) solution for nebulization 2.5 mg inhalation Q4H PRN (Reason: Sob &/Or Wheezing) Qty: 180 11RF Breztri Aerosphere 160-9-4.8 mcg/actuation HFA aerosol inhaler 2 inh inhalation BID Qty: 10.7 11RF doxycycline monohydrate 100 mg capsule 100 mg PO BID Qty: 20 0RF prednisone 10 mg tablet 10 mg PO QDAY Qty: 90 3RF albuterol sulfate [Ventolin HFA] 90 mcg/actuation HFA aerosol inhaler 2 puff INHALATION Q4H PRN (Reason: shortness of breath or wheezing) Qty: 18 5RF Primary Care Provider: Lena Suarez Referrals: Lena Suarez NP-C [Primary Care Provider] - Activity Restrictions/Additional Instructions: Please take your prescribed medications as directed to help control your symptoms and return to the ER should you have any further concerns Disposition Disposition: Home, Self Care
[2023-08-23 08:48] VITALS: BP 110/55; PULSE 65; RESP 19; TEMP 36.2; O2SAT 100
== END 2023-08-23 08:50 | disposition home or self-care (01) ==
PROVIDERS: Emergency Provider Emergency Medicine; PCP Nurse Practitioner Family; Visit Provider Emergency Medicine
DX: R07.89 Other chest pain (principal); J44.1 Chronic obstructive pulmonary disease with (acute) exacerbation; M81.0 Age-related osteoporosis without current pathological fracture; G47.33 Obstructive sleep apnea (adult) (pediatric); F17.200 Nicotine dependence, unspecified, uncomplicated
CPT/HCPCS: 71046; 93005; 99283

== ENCOUNTER 2023-11-23 05:47 | Emergency (ER) | payer BC, SELFPAY ==
[2023-11-23 05:48] VITALS: BP 162/70; PULSE 100; RESP 19; TEMP 36.2; O2SAT 98; BMI 14.3
[2023-11-23 05:53] VITALS: BP 162/70; PULSE 92; RESP 19; TEMP 36.2; O2SAT 98
--- NOTE | 2023-11-23 05:53 | EKG12_ITS ---
Test Reason : SOB Blood Pressure : / mmHG Vent. Rate : 079 BPM Atrial Rate : 079 BPM P-R Int : 100 ms QRS Dur : 088 ms QT Int : 388 ms P-R-T Axes : 078 041 061 degrees QTc Int : 444 ms Sinus rhythm with short NM Otherwise normal ECG Confirmed by AMPARO ELIAS, EDEN ([id number]), editor in chief CORNEL BERG ([id number]) on 11/24/2023 2:06:45 PM Referred By: Confirmed By:EDEN CHRISTENSEN MD
--- NOTE | 2023-11-23 05:55 | EDS_ITS ---
HPI History of Present Illness Chief Complaint: Chest Other Detail of Chief Complaint: Shortness of breath and pleurisy Informant: patient Onset/Context/Timing Onset: Yesterday Activity at onset: sudden Timing: Continuous Quality: Positive for - (Pain with breathing right side) Location: Right Chest Current Severity: Moderate Maximum Severity: Moderate Worsened By: Breathing Relieved By: Remaining Still Associated Symptoms: Positive for Dyspnea and Cough (Chronic nonproductive cough); Negative for Nausea, Vomiting, Diaphoresis, Fever, Lightheadedness, Acid Reflux or Palpitations Narrative Narrative: Patient is a 73-year-old woman who presents because of abrupt onset of right- sided pleuritic chest pain with shortness of breath. She is on home oxygen continuously. In spite of the oxygen she is short of breath and has increased shortness of breath with minimal activity. She denies history of PE or DVT. She has stage IV COPD by Gold classification. She has osteoporosis. She is on chronic steroids. She also has peripheral neuropathy due to chemotherapy. She has severe protein energy malnutrition due to her end-stage COPD. There is a remote history of breast cancer. She denies fever, chills or night sweats. She denies rhinorrhea, congestion, postnasal drainage sore throat. She denies leg pain, swelling or discoloration. She denies history of VTE. She denies abdominal pain, nausea, vomiting or diarrhea. Prior Similar Symptoms: No CVD Risk Factors: Negative for Hypertension, Diabetes, Hypercholesterolemia or Family History 1' </=55 PE Risk Factors: Negative for Recent Travel/Surgery, Recent Immobilization, Prior DVT or PE, Cancer or OCP + Smoking + >/=35 TAD Risk Factors: Negative for Marfan's Syndrome, Hypertension or Family History [facility] Medical History Cataract Collapsed lung COPD (chronic obstructive pulmonary disease) Osteoporosis Pleurisy Port placement VATS bullectomy/doxy peurodesis (left) Visual disturbances, right eye Home Medications ?Medication ?Instructions ?Recorded ?Last Taken ?Type albuterol sulfate 2.5 mg/3 mL 2.5 mg (3 mL) inhalation Q4H PRN 12/01/22 Unknown Rx (0.083 %) solution for nebulization Sob &/Or Wheezing #180 mL budesonide 160 mcg-glycopyr 9 2 inh inhalation BID #10.7 grams 12/01/22 Unknown Rx mcg-formot 4.8 mcg/actuation HFA inhaler (Breztri Aerosphere) albuterol sulfate 90 mcg/actuation 2 puff inhalation Q4H PRN 08/12/23 Unknown Rx aerosol inhaler (Ventolin HFA) shortness of breath or wheezing #18 grams methocarbamol 500 mg tablet 500 mg PO 4X/DAY PRN PRN Muscle 08/23/23 Unknown Rx pain/spasm #40 tabs azithromycin 250 mg tablet 250 mg PO QMWF #12 tabs 10/07/23 Unknown Rx bupropion HCl 150 mg 24 hr tablet, 300 mg PO QDAY 10/07/23 Unknown History extended release guaifenesin 1,200 mg tablet, 1,200 mg PO Q12H #60 tabs 10/07/23 Unknown Rx extended release 12 hr lorazepam 0.5 mg tablet 0.5 mg PO Q6H PRN dyspnea 10/07/23 Unknown History oxybutynin chloride 5 mg 5 mg PO DAILY 10/07/23 Unknown History tablet,extended release 24 hr prednisone 10 mg tablet 10 mg PO QDAY #90 tabs 10/07/23 Unknown Rx doxycycline hyclate 100 mg tablet 100 mg PO DAILY #14 tabs 11/23/23 Unknown Rx prednisone 50 mg tablet 50 mg PO DAILY #5 tabs 11/23/23 Unknown Rx Allergy/AdvReac Type Severity Reaction Status Date / Time No Known Allergies Allergy Verified 11/23/23 05:48 Family History Mother Hypoglycemia Neuropathy Thyroid disorder Hypertension Heart disease Diverticulitis Father COPD (chronic obstructive pulmonary disease) Surgical History History of bilateral mastectomy History of breast biopsy History of cataract extraction History of exploratory laparotomy Social History Smoking Status: Heavy Smoker (>10/day) alcohol intake: never substance use type: does not use ROS ROS ED Constitutional Constitutional ED: Denies chills, fever(s), subjective, sweats or weight loss Eyes Eyes: Reports none; Denies blurry vision or change in vision ENT ENT ED: Denies ear pain, rhinorrhea or sore throat Cardiovascular Cardiovascular: Reports as per HPI; Denies orthopnea or paroxysmal nocturnal dyspnea Respiratory/Chest Respiratory/Chest: Reports cough, dyspnea and dyspnea on exertion; Denies orthopnea, paroxysmal nocturnal dyspnea or sputum Gastrointestinal Gastrointestinal: Denies abdominal pain, constipation, diarrhea, melena, nausea or vomiting Genitourinary Genitourinary ED: Denies dysuria, hematuria or urinary frequency Musculoskeletal Musculoskeletal: Denies arthralgias, back pain, myalgias or neck pain Integumentary Denies rash Neurologic Neurologic: Denies headache(s) or paresthesias Psychiatric Psychiatric: Denies anxiety Endocrine Endocrinology: Denies cold intolerance or heat intolerance EXAM Physical Exam Const Vital Signs: 11/23/23 05:48 11/23/23 05:53 11/23/23 07:53 Temperature 97.2 F L 97.2 F L Temperature Source Temporal Temporal Pulse Rate 100 92 64 Respiratory Rate 19 H 19 H 18 Blood Pressure 162/70 H 162/70 H 134/76 H Blood Pressure Mean 100 100 95 Pulse Ox 98 98 98 Oxygen Delivery Method Nasal Cannula Nasal Cannula Room Air Oxygen Flow Rate (L/min) 3 11/23/23 09:00 11/23/23 10:28 Temperature 96.6 F L Temperature Source Pulse Rate 78 69 Respiratory Rate 16 16 Blood Pressure 118/76 115/65 Blood Pressure Mean 90 81 Pulse Ox 98 100 Oxygen Delivery Method Room Air Oxygen Flow Rate (L/min) Vital signs are remarkable and elevated blood pressure. She is not hypoxic on her baseline of oxygen. Positive well developed and cachectic General Appearance ED: well developed and cachectic; Negative for NAD or pallor Nutritional Appearance: cachectic HEENT Reports moist mucous membranes HEENT Narrative: Ears are normal. Nares are patent. Posterior pharynx is normal. normocephalic and atraumatic Eyes PERRL and EOMs intact bilaterally General Eye ED: Negative for pale conjunctiva or scleral icterus Neck no lymphadenopathy, supple and no JVD Neck Narrative: Trachea is midline. There is no stridor. There is no dysphonia. Chest Wall palpation of chest normal; Negative for inspection of chest normal Chest Narrative: Patient is cachectic and able to see her ribs. There is mild intercostal retractions with deep breathing. Resp No normal respiratory effort Resp Narrative: Abnormal breath sounds on the right questionable friction rub anteriorly over the right middle lobe. Breath sounds are diminished bilaterally. Breath sounds are symmetric. Expiratory phase is increased. Cardio regular rate, regular rhythm, S1 normal heart sound, S2 normal heart sound and no murmurs GI normal to inspection, nondistended, normoactive bowel sounds, soft to palpation, non-tender, non-distended and no masses; Negative for hepatosplenomegaly Back/Spine no CVA tenderness and no thoracic nor lumbar tenderness Extremity Extremity Narrative: There is no asymmetry, swelling, discoloration, leg vein distention, palpable cords or tenderness along the distribution of the deep venous system. Neuro oriented x3 and CN's II-XII intact bilaterally Sensorium / Orientation: awake and alert Psych mental status grossly normal Skin no rashes or lesions noted and no wounds General Skin Exam: Negative for jaundice or pallor MDM MDM MDM Narrative Medical decision making narrative: Differential diagnosis would include pulmonary embolus, pneumonia, pleurisy since this started abruptly there is an 18 to 19% incidence of PE and COPD's with abrupt onset of shortness of breath with no change in cough or sputum production. Therefore will obtain a D-dimer. Chest x-ray is obtained. If there is a pneumonia on the left side this would explain elevated D-dimer if elevated. CBC to assess white count differential. BMP to assess renal function in the likelihood that she will need a CTA to evaluate for PE. History & Record Review Additional record(s) reviewed:: Prior ED visit (Patient seen August 27 for chest pain. It is not felt to be cardiac chest pain. Her workup was reviewed.She was seen June 21, 2023 for chest pain. Because of the pain was felt to be pleurisy.) Lab Data Attestation: I reviewed the patient's lab results. Lab results narrative: CBC and H&H are unremarkable. Basic metabolic panel is remarkable glucose of 169 with a normal CO2 anion gap. BUN and creatinine are normal. Estimated GFR is 87. Labs: Laboratory Results - last 24 hr 11/23/23 06:01 WBC 9.8 RBC 4.64 Hgb 13.3 Hct 43.5 MCV 93.8 MCH 28.7 MCHC 30.6 L RDW Std Deviation 46.3 H RDW Coeff of Jin 13.6 Plt Count 412 MPV 8.8 Immature Gran % (Auto) 0.300 Neut % (Auto) 67.5 Lymph % (Auto) 24.7 [place] % (Auto) 4.8 Eos % (Auto) 1.8 Baso % (Auto) 0.9 Absolute Neuts (auto) 6.6 Absolute Lymphs (auto) 2.42 Nucleated RBC % 0 D-Dimer Quant (PE/DVT) 1.35 H* Sodium 138 Potassium 3.5 Chloride 99 Carbon Dioxide 32.0 Anion Gap 7 BUN 19 H Creatinine 0.70 Estim Creat Clear Calc 37.57 Est GFR (MDRD) Af Amer 105 Est GFR (MDRD) Non-Af 87 BUN/Creatinine Ratio 27.0 H Glucose 169 H Calcium 9.7 D-dimer is elevated even after correction for age. With abrupt onset of pleuritic pain, dyspnea and increased dyspnea with activity and a normal chest x-ray and elevated D-dimer will obtain CTA to evaluate for pulmonary embolus. Case will be turned over to the morning physician. Radiography Chest X-Ray - ED: Read by ED Physician (There is evidence of hyperaeration. There is no evidence of effusion, infiltrate or pneumothorax.), Unchanged, Normal, Heart, Mediastinum, Bony Structures and No Acute Disease Diagnostic Testing: Clinical Impression(s) from Imaging Studies Chest X-Ray 11/23/23 06:25 IMPRESSION: 1. Fibrotic and emphysematous changes in the lungs. 2. No evidence for acute cardiopulmonary pathology. Electronically Signed: Luis Alberto Gómez MD at 7:59 EDT , Chest CTA 11/23/23 06:49 IMPRESSION: No evidence of pulmonary embolism. Hyperinflation and emphysematous changes with bronchiectasis worse in the right lower lobe with mucous inspissation. Scarring at the lung apices worse on the left side. Electronically Signed: Calin Lagos MD at 8:32 EDT , EKG Initial EKG: Attestation: I personally reviewed and interpreted this EKG as follows: Interpretation: Sinus Rhythm (Rate is 79. OR interval is short at 100 ms. QS duration 88 ms per QT duration 88 ms. [place] is normal.) Discharge Plan Triage Chief Complaint: Chest Other ED Provider: Joaquim Woodward Dx/Rx/DC Orders Clinical Impression: Pleuritic chest pain, 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, Pulmonary cachexia due to COPD, History of breast cancer, Chronic hypoxic respiratory failure, Elevated d-dimer Instructions: ED Chest Pain, Noncardiac, ED COPD Flare Prescriptions: New prednisone 50 mg tablet 50 mg PO DAILY Qty: 5 0RF doxycycline hyclate 100 mg tablet 100 mg PO DAILY Qty: 14 0RF No Action albuterol sulfate 2.5 mg /3 mL (0.083 %) solution for nebulization 2.5 mg inhalation Q4H PRN (Reason: Sob &/Or Wheezing) Qty: 180 11RF Breztri Aerosphere 160-9-4.8 mcg/actuation HFA aerosol inhaler 2 inh inhalation BID Qty: 10.7 11RF oxybutynin chloride 5 mg tablet extended release 24hr 5 mg PO DAILY lorazepam 0.5 mg tablet 0.5 mg PO Q6H PRN (Reason: dyspnea) bupropion HCl 150 mg tablet extended release 24 hr 300 mg PO QDAY prednisone 10 mg tablet 10 mg PO QDAY Qty: 90 3RF azithromycin 250 mg tablet 250 mg PO QMWF Qty: 12 11RF guaifenesin 1,200 mg tablet extended release 12hr 1,200 mg PO Q12H Qty: 60 6RF methocarbamol 500 mg tablet 500 mg PO 4X/DAY PRN PRN (Reason: Muscle pain/spasm) Qty: 40 0RF albuterol sulfate [Ventolin HFA] 90 mcg/actuation HFA aerosol inhaler 2 puff INHALATION Q4H PRN (Reason: shortness of breath or wheezing) Qty: 18 5RF Primary Care Provider: Lena Suarez Referrals: Lena Suarez, ENGINEERING LEADER[employer] [Primary Care Provider] - Print Language: Citizen Of [place] Disposition Disposition: Home, Self Care Discharge Date/Time: 11/23/23 10:31
[2023-11-23 06:18] LABS: Absolute Lymphocyte Count 2.42 X10^3/uL (0.83-4.51); Absolute Neutrophil Count 6.6 X10^3/uL (2.0-7.7); Basophil# 0.09 X10^3/uL; Basophil% 0.9 % (0-1); Eosinophil# 0.18 X10^3/uL; Eosinophils% 1.8 % (0-5); Hematocrit 43.5 % (37-47); Hemoglobin 13.3 g/dL (12.0-15.0); Lymphocyte # 2.42 X10^3/ul (0.83-4.51); Lymphocyte % 24.7 % (19-41); Mean Corp Hgb Conc 30.6 g/dL (32-36); Mean Corpuscular Hgb 28.7 pg (27.0-32.0); Mean Corpuscular Volume 93.8 fL (81-99); Mean Platelet Vol. 8.8 fl (6.2-12.0); Monocyte# 0.47 X10^3/uL; Monocyte% 4.8 % (0-10); NRBC Flagged by Analyzer 0 % (0-5); Neutrophil # 6.62 X10^3/uL (2.7-7.7); Neutrophil % 67.5 % (47-70); Platelet Count 412 K/mm3 (150-450); RBC Distribution Width CV 13.6 % (11.6-14.6); RBC Distribution Width SD 46.3 fl (35.1-43.9); Red Blood Count 4.64 M/mm3 (4.2-5.4); White Blood Count 9.8 K/mm3 (4.4-11.0)
--- NOTE | 2023-11-23 06:25 | RAD_ITS ---
EXAM: XR CHEST, 2 VIEWS CLINICAL INDICATION: Pleurisy right side, question pleuritic rub right Pleurisy right side, question pleuritic rub right TECHNIQUE: Frontal and lateral views of the chest. COMPARISON: Chest x-ray 08/23/2023. FINDINGS: LUNGS AND PLEURAL SPACES: Lungs are hyperexpanded, consistent with COPD. There are fibrotic changes which are most evident in the upper lung hood. There is no visualized acute pulmonary infiltrate or pleural effusion. No pneumothorax. HEART: Unremarkable. Cardiac silhouette not enlarged. MEDIASTINUM: Central airways and mediastinal contour are unremarkable. BONES/JOINTS: Unremarkable. No acute fracture. SOFT TISSUES: Unremarkable. RAD/Chest PA and Lateral IMPRESSION: 1. Fibrotic and emphysematous changes in the lungs. 2. No evidence for acute cardiopulmonary pathology. Electronically Signed: Luis Alberto Gómez MD at 7:59 EDT Reading Location ID and State: [facility] / [place] , Service support ,
[2023-11-23 06:33] LABS: Anion Gap 7 (5-15); BUN 19 mg/dL (7-18); Calcium,Total 9.7 mg/dL (8.5-10.1); Chloride 99 mmol/L (98-107); EST Glomerular Filtration Rate 87 mL/min (>60); Est Glom Filt Rate - Afr Amer 105 mL/min (>60); Estimated Creatinine Clearance 37.57 ml/min; Glucose 169 mg/dL (74-106); Potassium 3.5 mmol/L (3.5-5.1); Sodium Level 138 mmol/L (136-145)
[2023-11-23 06:46] LABS: D-Dimer Quantitative (DVT/PE) 1.35 FEU/ug/m (0.27-0.49)
--- NOTE | 2023-11-23 06:49 | CT_ITS ---
STUDY: CTA CHEST REASON FOR EXAM: Female, 73 years old. Dyspnea, elevated D-dimer evaluate PE RADIATION DOSAGE (If Supplied By Facility): CTDIvol = ( 3.89 ) mGy, DLP = ( 121.11 ) mGycm TECHNIQUE: The examination was performed with the intravenous administration of IV 75mL [id number]-[id number]. Post-processing of the angiographic images was performed, with multiplanar reformation and 3D reconstruction. Individualized dose optimization techniques were used for this CT. COMPARISON: Comparison is made with prior chest radiograph dated November 23, 2023. FINDINGS: Normal enhancement of the main pulmonary artery and right and left pulmonary arteries. Normal enhancement of the bilateral peripheral pulmonary arteries. There is no demonstrated pulmonary embolism. Normal thoracic aorta and visualized great vessels. There is no demonstrated aortic dissection. There are calcifications of the coronary arteries. Normal mediastinum. Normal hilar regions. Normal visualized trachea and bronchi. The lungs are hyper expanded, with flattening of the hemidiaphragms. Diffuse emphysematous changes with bullous formation worse in the upper lobes and on the right side. There is evidence of scarring at both lung apices with the bronchiectasis worse in the left lung apex. There is scarring in the posterior aspect of the right upper lobe. There is evidence of a bronchiectasis with mucous plugging in the lower lobes. Normal chest wall structures. There are degenerative changes of thoracic spine. Normal visualized upper abdomen. CT/CTA Chest W/WO Contrast IMPRESSION: No evidence of pulmonary embolism. Hyperinflation and emphysematous changes with bronchiectasis worse in the right lower lobe with mucous inspissation. Scarring at the lung apices worse on the left side. Electronically Signed: Calin Lagos MD at 8:32 EDT ,
[2023-11-23 07:53] VITALS: BP 134/76; PULSE 64; RESP 18; O2SAT 98
[2023-11-23 09:00] VITALS: BP 118/76; PULSE 78; RESP 16; O2SAT 98
[2023-11-23] MEDS: Doxycycline 100 MG CAPSULE PO (10:25)
[2023-11-23 10:28] VITALS: BP 115/65; PULSE 69; RESP 16; TEMP 35.9; O2SAT 100
== END 2023-11-23 10:31 | disposition home or self-care (01) ==
PROVIDERS: Emergency Provider Emergency Medicine; PCP Nurse Practitioner Family; Visit Provider Emergency Medicine
DX: R07.81 Pleurodynia (principal); J96.11 Chronic respiratory failure with hypoxia; J44.9 Chronic obstructive pulmonary disease, unspecified; R64 Cachexia; Z79.51 Long term (current) use of inhaled steroids; Z79.899 Other long term (current) drug therapy
CPT/HCPCS: 71046; 71275; 80048; 85025; 85379; 93005; 99284; Q9967; A4216

== ENCOUNTER 2024-03-29 17:47 | Emergency (ER) | payer BC, SELFPAY ==
[2024-03-29 17:47] VITALS: BP 125/72; PULSE 97; RESP 16; TEMP 36.6; O2SAT 92
[2024-03-29 17:57] VITALS: BMI 12.5
--- NOTE | 2024-03-29 18:37 | CT_ITS ---
STUDY: CT BRAIN WITHOUT CONTRAST REASON FOR EXAM: Female, 73 years old. Trauma RADIATION DOSAGE (If Supplied By Facility): CTDIvol = ( 44.99 ) mGy, DLP = ( 779.24 ) mGycm TECHNIQUE: Transaxial CT imaging of the brain was performed without administration of intravenous contrast material. Individualized dose optimization techniques were used for this CT. COMPARISON: No relevant priors. FINDINGS: Normal soft tissue structures. Normal calvarium. Normal size ventricles and extra-axial spaces for the patient''s age. Mild white matter microangiopathic ischemic changes of the cerebral hemispheres. Normal basal ganglia and thalami. Normal brainstem. Normal cerebellum. There is no intracranial hemorrhage. There are no findings of an acute ischemic infarction. Normal visualized paranasal sinuses. CT/Brain/Head without Contrast IMPRESSION: No acute intracranial pathology of the brain. Electronically Signed: Ignacio Rosario DO at 19:18 EDT ,
--- NOTE | 2024-03-29 18:37 | CT_ITS ---
STUDY: CT CERVICAL SPINE WITHOUT CONTRAST REASON FOR EXAM: Female, 73 years old. Trauma RADIATION DOSAGE (If Supplied By Facility): CTDIvol = ( 11.79 ) mGy, DLP = ( 247.98 ) mGycm TECHNIQUE: High resolution transaxial imaging was performed without contrast material. Sagittal and coronal images were reconstructed. Individualized dose optimization techniques were used for this CT. COMPARISON: None FINDINGS: Normal craniovertebral junction. Normal anterior atlantoaxial articulation. Normal odontoid process. Normal cervical lordosis. Normal vertebral bodies and posterior osseous elements. C2-3: Normal endplates. Normal disc height and morphology. Normal central canal and intervertebral neuroforamina. C3-4: Spurring at the endplates. Narrowed disc height. Normal central canal. Uncovertebral spurring narrowing the left intervertebral neural foramen. C4-5: Spurring at the endplates. Narrowed disc height. Normal central canal. Uncovertebral spurring narrowing the intervertebral neuroforamina. C5-6: Spurring at the endplates. Narrowed disc height. Normal central canal. Uncovertebral spurring narrowing the intervertebral neuroforamina. C6-7: Normal endplates. Normal disc height and morphology. Normal central canal. Uncovertebral spurring slightly narrows the intervertebral neuroforamina. C7-T1: Normal endplates. Normal disc height and morphology. Normal central canal and intervertebral neuroforamina. Normal visualized soft tissue structures. Emphysematous changes in the visualized lung apices. CT/Spine Cervical without Contras IMPRESSION: Degenerative changes of the cervical spine. Electronically Signed: Ignacio Rosario DO at 19:37 EDT Reading Location ID and State: [facility] / [place] Tel [phone], Service support ,
--- NOTE | 2024-03-29 18:50 | RAD_ITS ---
INDICATION: Trauma EXAMINATION/TECHNIQUE: X-RAY - RIGHT XR Humerus 2 VIEWS COMPARISON: FINDINGS: SOFT TISSUES: No soft tissue swelling or gas. No radiopaque foreign body. BONES/JOINTS: There is a proximal humeral comminuted fracture. Preservation of the joint space.. No sclerotic or destructive changes observed. RAD/Humerus min 2 Views IMPRESSION: Comminuted proximal humeral fracture. Electronically Signed: Ignacio Rosario DO at 19:39 EDT ,
--- NOTE | 2024-03-29 18:50 | RAD_ITS ---
INDICATION: Trauma EXAMINATION/TECHNIQUE: X-RAY - RIGHT XR Shoulder Min 2 Views 2 VIEWS COMPARISON: FINDINGS: SOFT TISSUES: No soft tissue swelling or gas. No radiopaque foreign body. BONES/JOINTS: There is a comminuted proximal humeral fracture. Preservation of the joint space.. No sclerotic or destructive changes observed. RAD/Shoulder min 2 Views IMPRESSION: Comminuted proximal humeral fracture. Electronically Signed: Ignacio Rosario DO at 19:40 EDT ,
--- NOTE | 2024-03-29 18:53 | EDS_ITS ---
HPI HPI - Fall History of Present Illness Chief Complaint: Fall Narrative Narrative: Chief complaint and HPI: Right shoulder pain. 73-year-old female with history of COPD on 3 L nasal cannula baseline presents for evaluation of right shoulder pain after mechanical fall. Patient states that she tripped over her oxygen at home. She states she may have hit her head. She denies any LOC. Denies headache. Endorses pain in her right shoulder and arm. Was able to ambulate after the fall. Denies any syncope. Denies any fever, chills, URI symptoms, chest pain, shortness of breath, lightheadedness, abdominal pain, nausea, vomiting, dysuria. Review of systems: See HPI Medications: As listed on the chart Allergies: As listed on the chart PFSH: Per chart Vital signs: As listed on the chart. Reviewed. Physical exam: Gen: A&O x3, NAD Head: Normocephalic, atraumatic Eyes: No sclera icterus, conjunctiva clear, PERRL, EOMI ENT: TMs clear BL, moist mucous membranes, no swelling/lacerations/blood in the mouth or the nares, No nasal septal hematoma, no facial tenderness Neck: Trachea midline, No JVD, Nontender CV: RRR, no murmurs, no chest wall TTP Resp: Lungs CTA BL, no w/r/c GI: Abd soft, non-distended, non-tender, no r/r/g Musc: Full ROM, no deformity, no spinal TTP, no albertina step-offs, tenderness to palpation of the right shoulder and arm-full range of motion of the elbow, wrist, hand. Forearm, wrist, hand nontender to palpation. Radial/ulnar pulses plus 2 out of 4 bilaterally Skin: Warm, dry, intact Neuro: Alert, oriented, grossly intact, sensation intact, GCS 15 Psych: Cooperative, appropriate mood and affect [facility] Medical History Pleurisy Collapsed lung VATS bullectomy/doxy peurodesis (left) Port placement Osteoporosis COPD (chronic obstructive pulmonary disease) Cataract Visual disturbances, right eye Home Medications ?Medication ?Instructions ?Recorded ?Last Taken ?Type albuterol sulfate 90 mcg/actuation 2 puff inhalation Q4H PRN 08/12/23 Unknown Rx aerosol inhaler (Ventolin HFA) shortness of breath or wheezing #18 grams methocarbamol 500 mg tablet 500 mg PO 4X/DAY PRN PRN Muscle 08/23/23 Unknown Rx pain/spasm #40 tabs guaifenesin 1,200 mg tablet, 1,200 mg PO Q12H #60 tabs 10/07/23 Unknown Rx extended release 12 hr lorazepam 0.5 mg tablet 0.5 mg PO Q6H PRN dyspnea 10/07/23 Unknown History oxybutynin chloride 5 mg 5 mg PO DAILY 10/07/23 Unknown History tablet,extended release 24 hr prednisone 10 mg tablet 10 mg PO QDAY #90 tabs 10/07/23 Unknown Rx doxycycline hyclate 100 mg tablet 100 mg PO DAILY #14 tabs 11/23/23 Unknown Rx prednisone 50 mg tablet 50 mg PO DAILY #5 tabs 11/23/23 Unknown Rx budesonide 160 mcg-glycopyr 9 2 inh inhalation BID #10.7 grams 12/25/23 Unknown Rx mcg-formot 4.8 mcg/actuation HFA inhaler (GetQuikztri Paradialphere) azithromycin 250 mg tablet 250 mg PO QMWF #12 tabs 01/19/24 Unknown Rx albuterol sulfate 2.5 mg/3 mL 2.5 mg (3 mL) inhalation Q4H PRN 02/26/24 Unknown Rx (0.083 %) solution for nebulization Sob &/Or Wheezing #180 mL oxycodone-acetaminophen 5 mg-325 1 tab PO Q8H PRN pain 3 days #10 03/29/24 Unknown Rx mg tablet (Percocet) tabs Allergy/AdvReac Type Severity Reaction Status Date / Time No Known Allergies Allergy Verified 03/29/24 17:51 Family History Mother Hypoglycemia Neuropathy Thyroid disorder Hypertension Heart disease Diverticulitis Father COPD (chronic obstructive pulmonary disease) Surgical History History of exploratory laparotomy History of bilateral mastectomy History of breast biopsy History of cataract extraction Social History Smoking Status: Current every day smoker tobacco type: cigarettes alcohol intake: never substance use type: does not use EXAM Physical Exam Const Vital Signs: 03/29/24 17:47 03/29/24 17:56 03/29/24 20:17 Temperature 98 F Temperature Source Temporal Pulse Rate 97 96 Respiratory Rate 16 20 H Respiratory Effort Normal Non-Labored Respiratory Depth Normal Respiratory Pattern Normal Blood Pressure 125/72 H 111/66 Blood Pressure Mean 89 81 Pulse Ox 92 98 Oxygen Delivery Method Nasal Cannula Nasal Cannula Nasal Cannula Oxygen Flow Rate (L/min) 5 3 3 MDM MDM MDM Narrative Medical decision making narrative: 73-year-old female with history of COPD on oxygen presents for evaluation of right upper extremity pain after mechanical fall. Patient states this was purely a mechanical fall and denying any symptoms other than pain therefore I do not think any laboratory workup is needed at this time. Patient not quite sure if she hit her head. Not on blood thinners. CT head and cervical spine ordered. Will obtain x-rays of the right shoulder and right humerus. Differential diagnosis includes but is not limited to contusion, fracture, sprain, dislocation. CT of the head and cervical spine without any acute traumatic injury. X-ray of the right shoulder and humerus interpreted by me/EM physician shoulder not dislocated, patient has a proximal humerus fracture. Comminuted. Patient placed in a sling. She was educated on sling care. Follow-up with orthopedics and PCP. Narcotics given for pain control. Patient was educated on taking Tylenol and Motrin and narcotics only as needed. She was educated that narcotics can increase falls as well as decreased respirations. She confirmed understanding the plan. Impression: 1. Comminuted proximal humerus fracture 2. Mechanical fall Radiography Diagnostic Testing: Clinical Impression(s) from Imaging Studies Brain CT 03/29/24 18:37 IMPRESSION: No acute intracranial pathology of the brain. Electronically Signed: Ignacio Rosario DO at 19:18 EDT , Cervical Spine CT 03/29/24 18:37 IMPRESSION: Degenerative changes of the cervical spine. Electronically Signed: Ignacio Rosario DO at 19:37 EDT , Humerus X-Ray 03/29/24 18:50 IMPRESSION: Comminuted proximal humeral fracture. Electronically Signed: Ignacio Rosario at 19:39 EDT , Shoulder X-Ray 03/29/24 18:50 IMPRESSION: Comminuted proximal humeral fracture. Electronically Signed: Ignacio Rosario at 19:40 EDT , Discharge Plan Triage Chief Complaint: Fall ED Provider: Herman Reaves Dx/Rx/DC Orders Clinical Impression: Closed right humeral fracture Instructions: Leg or Arm Fracture, Understanding a Humerus Fracture, ED Mechanical Fall Prescriptions: New oxycodone-acetaminophen [Percocet] 5-325 mg tablet 1 tab PO Q8H PRN (Reason: pain) 3 Days Qty: 10 0RF No Action oxybutynin chloride 5 mg tablet extended release 24hr 5 mg PO DAILY lorazepam 0.5 mg tablet 0.5 mg PO Q6H PRN (Reason: dyspnea) prednisone 10 mg tablet 10 mg PO QDAY Qty: 90 3RF guaifenesin 1,200 mg tablet extended release 12hr 1,200 mg PO Q12H Qty: 60 6RF azithromycin 250 mg tablet 250 mg PO QMWF Qty: 12 11RF methocarbamol 500 mg tablet 500 mg PO 4X/DAY PRN PRN (Reason: Muscle pain/spasm) Qty: 40 0RF prednisone 50 mg tablet 50 mg PO DAILY Qty: 5 0RF doxycycline hyclate 100 mg tablet 100 mg PO DAILY Qty: 14 0RF albuterol sulfate [Ventolin HFA] 90 mcg/actuation HFA aerosol inhaler 2 puff INHALATION Q4H PRN (Reason: shortness of breath or wheezing) Qty: 18 5RF Breztri Aerosphere 160-9-4.8 mcg/actuation HFA aerosol inhaler 2 inh inhalation BID Qty: 10.7 11RF albuterol sulfate 2.5 mg /3 mL (0.083 %) solution for nebulization 2.5 mg inhalation Q4H PRN (Reason: Sob &/Or Wheezing) Qty: 180 11RF Primary Care Provider: Lena Suarez Referrals: Del Salamanca MD [Med Staff - Active Staff] - 3-5 Days (Call to schedule an appointment soon as possible) Lena Suarez, TONSORIAL ARTIST-C [Primary Care Provider] - 3-5 Days Activity Restrictions/Additional Instructions: Call to schedule an appointment with orthopedics as soon as possible. Sling to be remain on at all times except for when showering. Tylenol and Motrin as needed for pain. Narcotics can increase the chances of fall as well as decrease in breathing so monitor while taking. Follow-up with PCP. Print Language: American Disposition Disposition: Home, Self Care Discharge Date/Time: 03/29/24 21:15
[2024-03-29 20:17] VITALS: BP 111/66; PULSE 96; RESP 20; O2SAT 98
[2024-03-29] MEDS: oxyCODONE 5 MG Tablet PO (21:04)
[2024-03-29] MEDS: Acetaminophen 325 MG Tablet PO (21:04)
== END 2024-03-29 21:15 | disposition home or self-care (01) ==
PROVIDERS: Emergency Provider Surgery; PCP Nurse Practitioner Family; Visit Provider Surgery
DX: S42.354A Nondisplaced comminuted fracture of shaft of humerus, right arm, initial encounter for closed fracture (principal); J44.9 Chronic obstructive pulmonary disease, unspecified; W18.09XA Striking against other object with subsequent fall, initial encounter; Z79.52 Long term (current) use of systemic steroids; F17.210 Nicotine dependence, cigarettes, uncomplicated
CPT/HCPCS: 70450; 72125; 73030; 73060; 99283

== ENCOUNTER 2024-06-10 13:15 | Outpatient (RCR) | payer BC, SELFPAY ==
--- NOTE | 2024-06-10 14:11 | HP.PTEVAL_ITS ---
Patient's Visit Information Visit Information Visit Information: STEPAHN MILLER is a 73 year old F referred to Physical Therapy by Dr. Del Salamanca MD with a diagnosis of R humeral fracture. Date of Evaluation: 06/10/24 Physical Therapist: Robert Johansen, DPT, OCS, CSCS Visit Plan Frequency: Every Other Week Duration: 4-6 Weeks Plan: every other week(pt choice vs more frequent) for progression of AAROM to AROM and strength ex. IE HEP supine stick flexion and supine stick er 10x 3x/day with pics and expectations Subjective Subjective: Dr. Salamanca sent due to broken humerus top of R shoulder. That was 03/29 and she tripped over oxygen cord and landed on R arm. Hurt immediately and went to ER that night and x ray showed fracture adn put in sling. Made appointment with Che[facility]. Now it has been 10 weeks and looking good according to patient from doctor. Has some pain she takes tylenol one time day. Sometimes hurts at rest. Supposed to not sleep on it but rolls on it at night and it wakes her up. Getting 1-2 hrs at a time and that is more normal for her. On oxygen 100% 5l/min, COPD. Not employed. Activities : on phone and inactive. cooks but she can. Limited due to oxygen. 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 Dressing self with button down shirts, and does own pants and socks and shoes. Bath and bathroom I. No precautions, been out of sling for a month or so. Overall 50% better. Wants to Pain R shoulder: Pain Intensity (Out of 10): 0 Pain Intensity Range: 0 and 6 Objective Objective: Pushed back to PT in WC due to COPD/breathing. Walks 10 feet into room I carrying oxygen tank. [facility] bed and chair I. cervical and scapular AROM WFL B, elbow and wrist AROM WNL B without pain. L shoulder AROM flexion 145, er 58, IR L 4. R shoulder AROM 130 elevation, 38 er, L4 IR. Tender mildly anterior R shoulder. reflexes 2/3 bi and tri B. sensation UE WNL to gross light touch B UE. strength elevation 3 R and 3+ L, er 3+ L and 3 R, IR 4- B . Pain with elevation and er on R - ext rotation lag test, - drop arm, - sulcus, PROM 140 r shoulder elevation and 45 er with pain at end range. Balance/Special Test Scores Quick DASH Score: 43.1800 Goals Goal 1:: 148 aROM elevation R shoulder and 55 er to minimize future problems. Goal Time Frame: 4-6 Weeks Goal 2:: I appropriate strength and ROM for R shoulder to aid in reutrn to fucniton Goal Time Frame: 4-6 Weeks Goal 3:: Pt feel R shoulder 90% back to normal activity Goal Time Frame: 4-6 Weeks Goal 4:: quick dash17 or less Goal Time Frame: 4-6 Weeks Goal 5:: Do hair without difficulty. Goal Time Frame: 4-6 Weeks Rehabilitation Potential Physical Therapy Diagnosis: limited ROM and strength R arm post fracture. Rehabilitation Potential: Good Anticipated Interventions Patient/Client Instruction: Educate patient on: Condition and Plan of Care For the Purpose of:: To decrease pain, To increase ROM, To improve nutrient delivery to tissue and To increase tolerance to activity/condition/position Therapeutic Exercise to Include: Strength training, Postural training, Passive ROM and Active ROM For the Purpose of:: To decrease pain, To increase ROM, To improve nutrient delivery to tissue, To improve muscle performance and motor function and To increase tolerance to activity/condition/position Text: Thank you for the opportunity to evaluate your patient. For Medicare and Medicare HMO plans, please review the plan of care and approve it. It will need to be FAXED BACK to us at [phone] for Medicare purposes. For Medicare only, by signing this I certify the plan of care. Please let me know if there are questions or concerns regarding this plan of care. Physician Signature: Date:
--- NOTE | 2024-08-23 14:25 | HP.PT.NRP ---
Patient Information Patient Information: STEPHAN MILLER was seen in my office for initial evaluation on 06/10/24. The following Plan of Care was established for this patient: POC Established Initial Frequency: Every Other Week Initial Duration: 4-6 Weeks Anticipated Interventions Patient/Client Instruction: Educate patient on: Condition and Plan of Care For the Purpose of:: To decrease pain, To increase ROM, To improve nutrient delivery to tissue and To increase tolerance to activity/condition/position Therapeutic Exercise to Include: Strength training, Postural training, Passive ROM and Active ROM For the Purpose of:: To decrease pain, To increase ROM, To improve nutrient delivery to tissue, To improve muscle performance and motor function and To increase tolerance to activity/condition/position Last Seen Last Seen: This patient was last seen in our office 06/10/24. Pertinent comments regarding their Physical therapy will appear below: Pt seen for IE and POC established for every other week. Pt did not schedule or return for any further visits. At this point, it has been over 6 weeks and I will discontinue from my care. At this point I will be discontinuing this patient from physical therapy. I would be happy to see this patient again in the future if found appropriate by the physician. Thank you! Robert Johansen, DPT, OCS, CSCS Balance/Gait/Functional tests Balance/Special Test Scores Quick DASH Score: 43.1800
== END 2024-06-10 19:00 | disposition home or self-care (01) ==
LOC: PT 13:15
PROVIDERS: PCP Nurse Practitioner Family; Referring Provider Specialist; Visit Provider Specialist
DX: S42.231D 3-part fracture of surgical neck of right humerus, subsequent encounter for fracture with routine healing (principal)
CPT/HCPCS: 97110; 97161

== ENCOUNTER → 2024-07-01 | Outpatient (CLI) | payer BC, SELFPAY ==
--- NOTE | 2024-07-01 14:46 | CT_ITS ---
ACR Level 3 findings have been noted. An addendum which confirms receipt of the report will follow. HISTORY: smoker, hx breast cancer. TECHNIQUE: Helically acquired images were obtained of the chest without contrast. A radiation dose optimization technique was used for this scan. 808 images. COMPARISON: 11/23/2023, 06/05/2023. FINDINGS: LARGE AIRWAYS: Patent. LUNGS: Severe bullous emphysema with apical and peripheral scarring. Stable 6 mm irregular right upper lobe nodule medially. Suture of the left apex. New left pleural-parenchymal opacity with a thick-walled cavitary appearance measuring up to 2.2 x 2.4 cm in the right apical left lower lobe and intracavitary soft tissue component. Associated air bronchograms extending into the posterior consolidation in the left lower lobe. PLEURA: No pneumothorax or significant pleural effusion. HEART/PERICARDIUM: Heart within normal limits in size with coronary artery calcification. No pericardial effusion. VESSELS: Thoracic aorta nondilated. Mild atherosclerosis. MEDIASTINUM/SURAJ: No pathologically enlarged adenopathy. BONES: Mild periosteal reaction of the left seventh through ninth ribs posteriorly. Osteopenia and degenerative change. CT/Low Dose CT Lung Screening IMPRESSION: New moderate left pleural-parenchymal cavitary opacity extending from the left lung apex to the superior segment and posterior left lower lobe with mild periosteal reaction of the adjacent ribs. Diagnostic considerations include neoplasm in a patient with history of breast cancer and COPD, fungal pneumonia with aspergilloma, or mycobacterial infection such as tuberculosis. Recommend close short-term interval follow-up CT, PET-CT, and/or tissue diagnosis. Left apical postoperative change. Severe bullous emphysema with stable irregular 6 cm right upper lobe nodule. Electronically Signed: Otilia Antunez MD at 14:41 EST ,
== END | disposition home or self-care (01) ==
LOC: CT 14:45
PROVIDERS: PCP Nurse Practitioner Family; Referring Provider Nurse Practitioner Acute Care; Visit Provider Nurse Practitioner Acute Care
DX: F17.210 Nicotine dependence, cigarettes, uncomplicated (principal)
CPT/HCPCS: 71271

== ENCOUNTER → 2024-07-06 | Outpatient (CLI) | payer BC, SELFPAY ==
[2024-07-08 12:08] LABS: QNTFERON TB Mitogen Value 0.57 IU/mL (.); QNTFERON TB Nil Value 0 IU/mL (.); QNTFERON TB1+ Ag Value 0 IU/mL (.); QNTFERON TB2+ Ag Value 0 IU/mL (.); QNTIFERON TB Positive Criteria Negative (Negative)
== END | disposition home or self-care (01) ==
LOC: PAVLAB 14:28
PROVIDERS: PCP Nurse Practitioner Family; Referring Provider Nurse Practitioner Family; Visit Provider Nurse Practitioner Family
DX: J98.4 Other disorders of lung (principal)

== ENCOUNTER → 2024-07-20 | Outpatient (CLI) | payer BC, SELFPAY ==
[2024-07-20 11:59] LABS: Absolute Lymphocyte Count 1.58 X10^3/uL (0.83-4.51); Absolute Neutrophil Count 11.2 X10^3/uL (2.0-7.7); Basophil# 0.08 X10^3/uL; Basophil% 0.6 % (0-1); Eosinophil# 0.08 X10^3/uL; Eosinophils% 0.6 % (0-5); Hematocrit 30.8 % (37-47); Lymphocyte # 1.58 X10^3/ul (0.83-4.51); Lymphocyte % 11.4 % (19-41); Mean Corp Hgb Conc 29.2 g/dL (32-36); Mean Corpuscular Hgb 23.9 pg (27.0-32.0); Mean Corpuscular Volume 81.7 fL (81-99); Monocyte# 0.82 X10^3/uL; Monocyte% 5.9 % (0-10); NRBC Flagged by Analyzer 0 % (0-5); Neutrophil # 11.15 X10^3/uL (2.7-7.7); Neutrophil % 80.7 % (47-70); Platelet Count 509 K/mm3 (150-450); RBC Distribution Width CV 14.6 % (11.6-14.6); Red Blood Count 3.77 M/mm3 (4.2-5.4); White Blood Count 13.8 K/mm3 (4.4-11.0)
[2024-07-26 16:08] LABS: Aspirgillus fumigatus 1:16 (Neg:<1:1)
== END | disposition home or self-care (01) ==
LOC: PAVLAB 11:46
PROVIDERS: PCP Nurse Practitioner Family; Referring Provider Nurse Practitioner Family; Visit Provider Nurse Practitioner Family
DX: R05.9 Cough, unspecified (principal)
CPT/HCPCS: 36415; 85025; 86606; 87070; 87077; 87186; 87205

== ENCOUNTER → 2024-08-24 | Outpatient (CLI) | payer MEDICARE, SELFPAY ==
[2024-08-24 15:02] LABS: Hematocrit 31.3 % (37-47); Hemoglobin 9.2 g/dL (12.0-15.0); Mean Corp Hgb Conc 29.4 g/dL (32-36); Mean Corpuscular Hgb 24.9 pg (27.0-32.0); Mean Corpuscular Volume 84.6 fL (81-99); Mean Platelet Vol. 8.2 fl (6.2-12.0); Platelet Count 540 K/mm3 (150-450); RBC Distribution Width CV 17.4 % (11.6-14.6); RBC Distribution Width SD 53.5 fl (35.1-43.9); White Blood Count 14.3 K/mm3 (4.4-11.0)
[2024-08-24 16:15] LABS: AST(SGOT) 12 U/L (<=31); Alanine Aminotransfer ALT/SGPT 5 U/L (<=34); Albumin, Serum 3.5 g/dL (3.4-4.8); Alkaline Phosphatase 115 U/L (35-104); Anion Gap 10 (5-15); BUN 15 mg/dL (4-19); BUN/Creat Ratio 29.9 RATIO (10-20); Bilirubin, Direct < 0.08 mg/dL (0.00-0.30); Calcium,Total 9.8 mg/dL (7.6-11.0); Carbon Dioxide 28.4 mmol/L (21.0-32.0); Chloride 100 mmol/L (98-108); Creatinine, Serum 0.51 mg/dL (0.70-1.20); EST Glomerular Filtration Rate 100 (>60); Globulin 3.8 g/dL (2.2-4.2); Glucose 115 mg/dL (70-99); Potassium 4.5 mmol/L (3.3-5.1); Protein, Total 7.3 g/dL (5.9-8.4); Sodium Level 138 mmol/L (133-145); Total Bilirubin < 0.15 mg/dL (0.00-1.30)
== END | disposition home or self-care (01) ==
PROVIDERS: PCP Nurse Practitioner Family; Referring Provider Internal Medicine Infectious Disease; Visit Provider Internal Medicine Infectious Disease
DX: B44.1 Other pulmonary aspergillosis (principal)
CPT/HCPCS: 36415; 80048; 80076; 85027

== ENCOUNTER → 2024-09-12 | Outpatient (CLI) | payer MEDICARE, SELFPAY ==
[2024-09-12 12:40] LABS: Hematocrit 32.8 % (37-47); Hemoglobin 9.8 g/dL (12.0-15.0); Mean Corp Hgb Conc 29.9 g/dL (32-36); Mean Corpuscular Hgb 25.9 pg (27.0-32.0); Mean Corpuscular Volume 86.8 fL (81-99); Mean Platelet Vol. 8.3 fl (6.2-12.0); Platelet Count 397 K/mm3 (150-450); RBC Distribution Width CV 17.8 % (11.6-14.6); RBC Distribution Width SD 56.2 fl (35.1-43.9); Red Blood Count 3.78 M/mm3 (4.2-5.4); White Blood Count 13.5 K/mm3 (4.4-11.0)
[2024-09-12 15:30] LABS: AST(SGOT) 14 U/L (<=31); Alanine Aminotransfer ALT/SGPT 7 U/L (<=34); Albumin, Serum 3.6 g/dL (3.4-4.8); Alkaline Phosphatase 88 U/L (35-104); Anion Gap 11 (5-15); BUN 14 mg/dL (4-19); Bilirubin, Direct < 0.08 mg/dL (0.00-0.30); Calcium,Total 9.5 mg/dL (7.6-11.0); Carbon Dioxide 27.1 mmol/L (21.0-32.0); Chloride 99 mmol/L (98-108); Creatinine, Serum 0.45 mg/dL (0.70-1.20); EST Glomerular Filtration Rate 102 (>60); Globulin 3.1 g/dL (2.2-4.2); Glucose 112 mg/dL (70-99); Potassium 3.7 mmol/L (3.3-5.1); Protein, Total 6.7 g/dL (5.9-8.4); Sodium Level 137 mmol/L (133-145); Total Bilirubin < 0.15 mg/dL (0.00-1.30)
== END | disposition home or self-care (01) ==
LOC: LAB 11:54
PROVIDERS: PCP Nurse Practitioner Family; Referring Provider Internal Medicine Infectious Disease; Visit Provider Internal Medicine Infectious Disease
DX: B44.1 Other pulmonary aspergillosis (principal)
CPT/HCPCS: 36415; 80048; 80076; 85027

== ENCOUNTER → 2024-10-28 | Outpatient (CLI) | payer MEDICARE, SELFPAY ==
--- NOTE | 2024-10-28 08:21 | CT_ITS ---
PROCEDURE: CHEST WITHOUT CONTRAST 10/28/2024 REASON FOR EXAM: CAVITARY LESION TECHNIQUE: Chest CT without contrast. Coronal and Sagittal reconstruction series were provided. One or more dose reduction techniques were used (e.g., Automated exposure control, adjustment of the mA and/or kV according to patient size, use of iterative reconstruction technique RADIATION DOSE SUMMARY: CTDlvol: 6.15 mGy DLP: 244.17 mGycm COMPARISON: Comparison is made with prior study dated July 01, 2024. FINDINGS: Hardware: None Lymph nodes: No significant mediastinal lymph nodes are seen. Heart and Vasculature: Coronary artery calcifications are noted. Atherosclerotic calcifications of the thoracic aorta. Thoracic aorta and pulmonary arteries have normal contours; noncontrast technique limits evaluation. Coronary Artery Calcifications: Present Lungs and Airways: Advanced emphysematous changes are present. Persistent infiltrate in the left lower lobe. At this time, there is evidence of multiple cystic spaces with a tiny air-fluid levels suggestive of possible infected bulla. There is also evidence of underlying bronchiectasis. Residual infiltrate in the inferior aspect of the posterior segment of the left lower lobe. 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 Pleura: No significant pleural effusion is seen. Upper Abdomen: Unremarkable Bones: Degenerative changes of the thoracic spine. CT/Chest without Contrast IMPRESSION: Advanced emphysematous changes. The previously seen consolidation in the left lower lobe has become less coales cent with multiple small cystic spaces containing air-fluid level suggestive of possible infected bulla. Reading Location: CT
== END | disposition home or self-care (01) ==
LOC: CT 08:20
PROVIDERS: PCP Nurse Practitioner Family; Referring Provider Nurse Practitioner Family; Visit Provider Nurse Practitioner Family
DX: R91.1 Solitary pulmonary nodule (principal)
CPT/HCPCS: 71250

== ENCOUNTER → 2025-01-30 | Outpatient (CLI) | payer MEDICARE, SELFPAY ==
--- NOTE | 2025-01-30 10:38 | CT_ITS ---
PROCEDURE: CHEST WITHOUT CONTRAST 01/30/2025 REASON FOR EXAM: PERSISTENT 2.2 X 2.3CM DENSITY IN LLL History of breast carcinoma with bilateral mastectomy. Smoker. TECHNIQUE: Chest CT without contrast. Coronal and Sagittal reconstruction series were provided. One or more dose reduction techniques were used (e.g., Automated exposure control, adjustment of the mA and/or kV according to patient size, use of iterative reconstruction technique RADIATION DOSE SUMMARY: CTDlvol: 6.34 mGy DLP: 263.12 mGycm COMPARISON: Prior study dated October 28, 2024. FINDINGS: Hardware: None Lymph nodes: No mediastinal lymph nodes are seen. Heart and Vasculature: The heart is nonenlarged. Atherosclerotic calcifications of the thoracic aorta. Thoracic aorta and pulmonary arteries have normal contours; noncontrast technique limits evaluation. Coronary Artery Calcifications: Present Lungs and Airways: Advanced emphysematous changes are present. Persistent heterogeneous infiltrate in the left lower lobe with areas of cystic changes. Stable 2.5 cm bulla in the anterior superior aspect of the heterogeneous infiltrate. Persistent 2.2 cm 2.3 cm rounded soft tissue density in the medial superior segment of the left lower lobe. Pleura: No pleural effusion. Upper Abdomen: Unremarkable Bones: Degenerative changes of the thoracic spine. Loss of height of a mid dorsal vertebrae. CT/Chest without Contrast IMPRESSION: Coronary artery calcification (CAC) is is present Stable examination. Reading Location: [place] [id number]
== END | disposition home or self-care (01) ==
LOC: CT 10:32
PROVIDERS: PCP Nurse Practitioner Family; Referring Provider Nurse Practitioner Family; Visit Provider Nurse Practitioner Family
DX: J44.9 Chronic obstructive pulmonary disease, unspecified (principal); R91.1 Solitary pulmonary nodule
CPT/HCPCS: 71250; 94060; 94726; 94729

== ENCOUNTER → 2025-02-03 | Outpatient (CLI) | payer MEDICARE, SELFPAY ==
[2025-02-03 14:05] VITALS: PULSE 114; PULSE 115; PULSE 116; PULSE 118; PULSE 120; PULSE 122; PULSE 126; PULSE 129; O2SAT 87; O2SAT 90; O2SAT 91; O2SAT 92; O2SAT 95; O2SAT 98
--- NOTE | 2025-02-03 14:11 | CPS ---
PATIENT ARRIVED FOR TESTING IN A WHEELCHAIR AND WITH OWN POC DEVICE. PLACED ON ROOM AIR FOR 10 MINUTES AND FINGERS WARMED PRIOR TO BEGINNING WALK TEST. SPO2 AT BEGINNING OF TESTING ON ROOM AIR WAS 95%. PATIENT HAD INCREASED WOB WHICH SHE SAID IS HER NORMAL STATE. SHE PUSHED THE W/C FOR STABILITY DURING TESTING. AT 2 MINUTES, SHE SAT TO REST D/T INCREASED WOB FROM BASELINE, SHE WANTED TO PUT O2 ON, I ENCOURAGED HER TO LEAVE IT OFF HER SPO2 WAS STILL AT 92% ROOM AIR. (SHE QUESTIONED WHETHER THE PULSE OX READINGS WERE CORRECT BECAUSE SHE WAS SOB, I ASSURED HER THEY WERE ACCURATE AND EXPLAINED THAT INCREASED WOB ISN'T ALWAYS CAUSED BY, OR FIXED BY, OXYGEN) SHE AGREED TO LEAVE OXYGEN OFF AND DECIDED TO WALK AGAIN TO ATTAIN MORE DATA. SHE RESTED UNTIL 3:45 AT WHICH TIME SHE DECIDED TO WALK AGAIN. HER SPO2 ON ROOM AIR MAINTAINED ABOVE 88% UNTIL JUST AT THE 6TH MINUTE OF EXERCISE AT WHICH POINT SHE DROPPED TO 87% WITH GOOD SIGNAL. TESTING WAS OVER AT THAT POINT THEREFORE NO AMBULATION WAS DONE WITH OXYGEN. SHE PUT HER OWN POC DEVICE BACK ON AT PULSE DOSE OF 2 WITH SPO2 RISING TO 98%.
--- NOTE | 2025-02-09 13:04 | WT_ITS ---
PSN 6 Minute Walk Test 6 Minute Walk Test 6 Minute Walk Test: 6 Minute Walk Test PSN:6-Minute Walk Test Start: 02/03/25 13:27 Freq: Status: Discharge Protocol: [id number] Document 02/03/25 14:05 [facility] (Rec: 02/03/25 14:24 [facility] [id number]) 6 Minute Walk Test Date Performed 02/03/25 Time Performed 12:30 Height 5 ft 4 in Weight: 70 lb Weight in Pounds 70.[address]: Kaylie Ames Assistive device Walker used: Pre-test Oxygen Delivery Room Air Method Pulse Ox (%) 95 Pulse Rate (60-100 115 H beats/min) Dyspnea Nilda Scale ( 4 0-10) Exertion Nilda Scale 9 (6-20) Reported Symptoms Increased Work of Breathing 1st minute Oxygen Delivery Room Air Method Pulse Ox (%) 92 Pulse Rate (60-100 114 H beats/min) Dyspnea Nilda Scale ( 5 0-10) Number of Rests 0 Taken Reported Symptoms Increased Work of Breathing 2nd minute Oxygen Delivery Room Air Method Pulse Ox (%) 91 Pulse Rate (60-100 120 H beats/min) Dyspnea Nilda Scale ( 6 0-10) Exertion Nilda Scale 15 (6-20) Number of Rests 1 Taken Reported Symptoms Increased Work of Breathing 3rd minute Oxygen Delivery Room Air Method Pulse Ox (%) 92 Pulse Rate (60-100 118 H beats/min) Dyspnea Nilda Scale ( 6 0-10) Number of Rests 1 Taken Reported Symptoms Increased Work of Breathing 4th minute Oxygen Delivery Room Air Method Pulse Ox (%) 92 Pulse Rate (60-100 122 H beats/min) Dyspnea Nilda Scale ( 7 0-10) Number of Rests 0 Taken Reported Symptoms Increased Work of Breathing 5th minute Oxygen Delivery Room Air Method Pulse Ox (%) 90 Pulse Rate (60-100 126 H beats/min) Dyspnea Nilda Scale ( 7 0-10) Number of Rests 0 Taken Reported Symptoms Increased Work of Breathing 6th minute Oxygen Delivery Room Air Method Pulse Ox (%) 87 Pulse Rate (60-100 129 H beats/min) Dyspnea Nilda Scale ( 8 0-10) Exertion Nilda Scale 15 (6-20) Reported Symptoms Increased Work of Breathing Post-test Oxygen Flow Rate (L/ 2 min) (L/min) Oxygen Delivery Nasal Cannula Method Pulse Ox (%) 98 Pulse Rate (60-100 116 H beats/min) Dyspnea Nilda Scale ( 5 0-10) Exertion Nilda Scale 10 (6-20) Reported Symptoms Increased Work of Breathing Full Laps Walked 6 Partial Lap, Number 47 of Tiles Walked Total Distance 401 Walked (ft) 02/03/25 14:11 Cardiopulmonary Services by Yadira Brooks PATIENT ARRIVED FOR TESTING IN A WHEELCHAIR AND WITH OWN POC DEVICE. PLACED ON ROOM AIR FOR 10 MINUTES AND FINGERS WARMED PRIOR TO BEGINNING WALK TEST. SPO2 AT BEGINNING OF TESTING ON ROOM AIR WAS 95%. PATIENT HAD INCREASED WOB WHICH SHE SAID IS HER NORMAL STATE. SHE PUSHED THE W/C FOR STABILITY DURING TESTING. AT 2 MINUTES, SHE SAT TO REST D/T INCREASED WOB FROM BASELINE, SHE WANTED TO PUT O2 ON, I ENCOURAGED HER TO LEAVE IT OFF HER SPO2 WAS STILL AT 92% ROOM AIR. (SHE QUESTIONED WHETHER THE PULSE OX READINGS WERE CORRECT BECAUSE SHE WAS SOB, I ASSURED HER THEY WERE ACCURATE AND EXPLAINED THAT INCREASED WOB ISN'T ALWAYS CAUSED BY, OR FIXED BY, OXYGEN) SHE AGREED TO LEAVE OXYGEN OFF AND DECIDED TO WALK AGAIN TO ATTAIN MORE DATA. SHE RESTED UNTIL 3:45 AT WHICH TIME SHE DECIDED TO WALK AGAIN. HER SPO2 ON ROOM AIR MAINTAINED ABOVE 88% UNTIL JUST AT THE 6TH MINUTE OF EXERCISE AT WHICH POINT SHE DROPPED TO 87% WITH GOOD SIGNAL. TESTING WAS OVER AT THAT POINT THEREFORE NO AMBULATION WAS DONE WITH OXYGEN. SHE PUT HER OWN POC DEVICE BACK ON AT PULSE DOSE OF 2 WITH SPO2 RISING TO 98%. Initialized on 02/03/25 14:11 - END OF NOTE Interpretation Interpretation: The patient ambulated 401 feet over the course of 6 minutes beginning on room air with the use of a push to wheelchair. Pretesting oxygen saturation was n oted to be 95% on room air. The patient rested from minute 2 of testing through minute 3 minutes and 45 seconds. While the patient did ultimately experience a decline in SpO2 to 87% at minute 6 of testing, the walk test was completed at that point. Therefore, no titration of supplemental oxygen was undertaken. Recommendations Recommendations: Recommend repeat 6-minute walk test to truly reassess the patient's ongoing supplemental oxygen needs.
== END | disposition home or self-care (01) ==
LOC: PSN 12:33
PROVIDERS: PCP Nurse Practitioner Family; Referring Provider Nurse Practitioner Family; Visit Provider Nurse Practitioner Family
DX: J44.9 Chronic obstructive pulmonary disease, unspecified (principal)
CPT/HCPCS: 94618

== ENCOUNTER → 2025-02-17 | Outpatient (CLI) | payer MEDICARE, SELFPAY ==
[2025-02-17 12:48] LABS: Hematocrit 37.4 % (37-47); Hemoglobin 11.7 g/dL (12.0-15.0); Mean Corp Hgb Conc 31.3 g/dL (32-36); Mean Corpuscular Volume 91.7 fL (81-99); Mean Platelet Vol. 8.5 fl (6.2-12.0); Platelet Count 424 K/mm3 (150-450); RBC Distribution Width CV 18.3 % (11.6-14.6); RBC Distribution Width SD 61.0 fl (35.1-43.9); Red Blood Count 4.08 M/mm3 (4.2-5.4); White Blood Count 11.4 K/mm3 (4.4-11.0)
[2025-02-17 14:05] LABS: AST(SGOT) 19 U/L (<=31); Alanine Aminotransfer ALT/SGPT 10 U/L (<=34); Albumin, Serum 3.5 g/dL (3.4-4.8); Alkaline Phosphatase 98 U/L (35-104); Anion Gap 10 (5-15); BUN 16 mg/dL (4-19); BUN/Creat Ratio 35.3 RATIO (10-20); Bilirubin, Direct < 0.08 mg/dL (0.00-0.30); Calcium,Total 9.0 mg/dL (7.6-11.0); Carbon Dioxide 25.4 mmol/L (21.0-32.0); Chloride 107 mmol/L (98-108); Globulin 3.2 g/dL (2.2-4.2); Glucose 62 mg/dL (70-99); Potassium 3.4 mmol/L (3.3-5.1)
== END | disposition home or self-care (01) ==
PROVIDERS: PCP Nurse Practitioner Family; Referring Provider Internal Medicine Infectious Disease; Visit Provider Internal Medicine Infectious Disease
DX: B44.1 Other pulmonary aspergillosis (principal)
CPT/HCPCS: 36415; 80048; 80076; 85027

== ENCOUNTER → 2025-04-05 | Outpatient (CLI) | payer MEDICARE, SELFPAY ==
--- NOTE | 2025-04-05 09:00 | RAD_ITS ---
PROCEDURE: UPPER GI DUAL CONTRAST 04/05/2025 REASON FOR EXAM: ANEMIA, FOBT+ TECHNIQUE: UPPER GI DUAL CONTRAST FLUOROSCOPIC TIME: A minute and 16 seconds. Radiation dose: 9.69 mGy. FLUOROGRAPHIC IMAGES: 7 COMPARISON: None FINDINGS: Invoice Classification Clerk Image: Non-obstructed bowel gas pattern. No significant retained colonic stool. The patient ingested barium. Imaging of the esophagus stomach and duodenum was obtained. There is no evidence of esophageal obstruction. No evidence of gastroesophageal reflux. The stomach and duodenum are unremarkable. RAD/Upper GI Dual Contrast IMPRESSION: Unremarkable air-contrast upper GI series. Reading Location: [facility]
== END | disposition home or self-care (01) ==
LOC: RAD 08:47
PROVIDERS: PCP Nurse Practitioner Family; Referring Provider Student in an Organized Health Care Education/Training Program; Visit Provider Student in an Organized Health Care Education/Training Program
DX: D50.0 Iron deficiency anemia secondary to blood loss (chronic) (principal)
CPT/HCPCS: 74246

== ENCOUNTER → 2025-04-26 | Outpatient (CLI) | payer MEDICARE, SELFPAY ==
[2025-04-26 15:20] LABS: Hematocrit 30.9 % (37-47); Hemoglobin 9.3 g/dL (12.0-15.0); Immature Granulocytes Count 0.130 X10^3/uL (0.0-0.0); Mean Corp Hgb Conc 30.1 g/dL (32-36); Mean Corpuscular Volume 99.7 fL (81-99); Mean Platelet Vol. 8.8 fl (6.2-12.0); NRBC Flagged by Analyzer 0 % (0-5); POSITIVE DIFFERENTIAL YES; Platelet Count 494 K/mm3 (150-450); RBC Distribution Width CV 14.5 % (11.6-14.6); RBC Distribution Width SD 52.4 fl (35.1-43.9); Red Blood Count 3.10 M/mm3 (4.2-5.4); White Blood Count 17.0 K/mm3 (4.4-11.0)
[2025-04-26 16:26] LABS: AST(SGOT) 18 U/L (<=31); Alanine Aminotransfer ALT/SGPT 13 U/L (<=34); Albumin, Serum 3.6 g/dL (3.4-4.8); Alkaline Phosphatase 126 U/L (35-104); Anion Gap 11 (5-15); BUN 16 mg/dL (4-19); BUN/Creat Ratio 32.4 RATIO (10-20); Calcium,Total 9.2 mg/dL (7.6-11.0); Carbon Dioxide 27.3 mmol/L (21.0-32.0); Chloride 104 mmol/L (98-108); Globulin 3.0 g/dL (2.2-4.2); Glucose 134 mg/dL (70-99); Potassium 3.3 mmol/L (3.3-5.1)
== END | disposition home or self-care (01) ==
LOC: LAB 14:36
PROVIDERS: PCP Nurse Practitioner Family; Referring Provider Student in an Organized Health Care Education/Training Program; Visit Provider Student in an Organized Health Care Education/Training Program
DX: D50.0 Iron deficiency anemia secondary to blood loss (chronic) (principal)
CPT/HCPCS: 36415; 80053; 85025

== ENCOUNTER 2025-05-19 05:26 | Day surgery (SDC) | payer MEDICARE, SELFPAY ==
--- NOTE | 2025-05-16 13:41 | PAT.ANESEVAL ---
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 When Was Last Pacemaker Check QUESTION #4 FULL TEXT: You/Your Family Experience fever (hyperthermia) with Anesthesia Last Oral Intake Last Oral intake: Last Oral Intake NPO since Meds taken in AM with sips of water? Meds patient instructed to take am of surgery PONV PONV - fitness sales associate: PONV - fitness sales associate Female Yes 05/16/25 12:38 HX of Motion Sickness No 05/16/25 12:38 HX of N/V After Surgery No 05/16/25 12:38 Non-Smoker No 05/16/25 12:38 Duration of Surgery greater No 05/16/25 12:38 than 60 minutes Number of Risk Factors 1 05/16/25 12:38 PONV Score Low Risk 05/16/25 12:38 Height & Weight Height & Weight: Anesthesia: Height & Weight Height 5 ft 4 in 04/05/25 10:28 Respiratory Assessment Respiratory Assessment - fitness sales associate: Respiratory Tract Infection Hx - fitness sales associate Hx Respiratory Tract Infection No 05/16/25 12:38 STOP Sleep Apnea STOP Sleep Apnea - fitness sales associate: STOP Sleep Apnea - fitness sales associate Hx Hypertension No 05/16/25 12:38 Hx Sleep Apnea No 05/16/25 12:38 CPAP No 08/09/18 06:33 BIPAP Do you snore loudly (louder Yes 05/16/25 12:38 than talking or can be heard Do you often feel tired/ Yes 05/16/25 12:38 fatigued/ sleepy during daytime? Has anyone observed you stop No 05/16/25 12:38 breathing during sleep? STOP Results Positive 05/16/25 12:38 QUESTION #5 FULL TEXT : Do you snore loudly (louder than talking or can be heard through closed doors)? Tobacco Use History Tobacco Use History - fitness sales associate: Tobacco Use History - fitness sales associate Tobacco Use Smoking Status Former smoker 05/16/25 12:38 Hx Tobacco Use Yes 05/16/25 12:38 Years Smoking Packs Smoked per Day Smoking Cessation Date was Yes - quit smoking within 15 05/16/25 12:38 within the last 15 years years Hx Smoking Cessation Date 01/20/25 05/16/25 12:38 Hx Smoking Cessation Yes 05/16/25 12:38 Counseling Hematologic Medial History Hematologic Hx - fitness sales associate: Hematologic Medical Hx - documentation consultant Hx of Blood Transfusion No 05/16/25 12:38 Hx of Transfusion in last 3 No 05/16/25 12:38 Months Date of Last Transfusion (if within last 3 months) Ever experience any problems No 05/16/25 12:38 with transfusion(s)? Specify any problems Hx of Preganancy in last 3 No 05/16/25 12:38 Months Nurse Filling Out Transfusion DSCHRIBER 05/16/25 12:38 & Questions: Date: 05/16/25 05/16/25 12:38 Time: 12:40 05/16/25 12:38 Patient unable to answer at this time (ie. confused, unrespo /Reproduction History /Reproductive History - fitness sales associate: /Reproductive Hx- fitness sales associate Hx Now No 05/16/25 12:38 Gestational Age (in weeks): EDC: Hx Hx Para Hx Section SAB No 05/16/25 12:38 Does the father of the baby or his family experience fever w Father of the baby Malignant Hypertension history comment [facility] Medical History (Updated 05/16/25 @ 12:50 by Joie Infante) Wears glasses Wears dentures Post-menopausal Cancer Depression Anxiety History of steroid therapy Low iron Easy bruising Back pain Abdominal bloating Emphysema, unspecified On home oxygen therapy Restless legs Former smoker Shortness of breath on exertion History of pain when walking History of edema History of stress test Pleurisy Collapsed lung VATS bullectomy/doxy peurodesis (left) Port placement Osteoporosis COPD (chronic obstructive pulmonary disease) Home Medications ?Medication ?Instructions ?Recorded ?Last Taken ?Type lorazepam 0.5 mg tablet 0.5 mg PO 1000 dyspnea 10/07/23 Unknown History albuterol sulfate 90 mcg/actuation 2 puff inhalation Q4H PRN 11/01/24 Unknown Rx aerosol inhaler (Ventolin HFA) shortness of breath or wheezing #18 grams prednisone 10 mg tablet 10 mg PO QDAY #90 tabs 11/01/24 Unknown Rx azithromycin 250 mg tablet 250 mg PO QMWF #12 tabs 01/24/25 Unknown Rx ipratropium bromide 0.02 % 1.25 ml inhalation Q6-8H PRN 01/24/25 Unknown Rx solution for inhalation shortness of breath or wheezing #150 mL budesonide 160 mcg-glycopyr 9 2 inh inhalation BID #10.7 grams 02/07/25 Unknown Rx mcg-formot 4.8 mcg/actuation HFA inhaler (Breztri Aerosphere) albuterol sulfate 2.5 mg/3 mL 2.5 mg (3 mL) inhalation Q4H PRN 03/06/25 Unknown Rx (0.083 %) solution for nebulization Sob &/Or Wheezing #180 mL roflumilast 500 mcg tablet 500 mcg PO DAILY 05/16/25 Unknown History voriconazole 200 mg tablet 200 mg PO BID 05/16/25 Unknown History Allergy/AdvReac Type Severity Reaction Status Date / Time No Known Allergies Allergy Verified 05/16/25 12:30 Family History Mother Hypoglycemia Neuropathy Thyroid disorder Hypertension Heart disease Diverticulitis Father COPD (chronic obstructive pulmonary disease) Surgical History (Updated 05/16/25 @ 12:50 by Joie Infante) History of hysteroscopy Hx of colonoscopy Hx of right cataract extraction Hx of left cataract extraction History of exploratory laparotomy History of bilateral mastectomy History of breast biopsy Social History Smoking Status: Former smoker alcohol intake: never substance use type: does not use Audit: Pertinent Findings Pertinent Findings EKG Perinent findings: 11/2023: SR with short GA Recommendation Anesthesia Recommendation Anesthesia recommendation: OPTIMIZED for anesthesia
[2025-05-19] VITALS (9 sets, daily range): BP systolic 120–157; BP diastolic 63–78; PULSE 81–87; RESP 14–16; TEMP 36.1–36.5; O2SAT 100; BMI 12.9
--- OUTSIDE RECORDS SUMMARY | 2025-05-19 05:45 | XMS RPT_ITS | CCD ---
Author Organization [facility] Care Team Providers Care Table Keeper Name Role Phone Jaida Kwong Primary Care Provider Dr. Deshawn Torrez Primary Care Provider Dr. Deshawn Torrez Referring Provider Dr. Donald Park Attending Provider Dr. Jeanie Yepez Attending Provider MD Jluis [place] Emergency Provider Dr. Jaida Kwong Primary Care Provider Dr. Donald Guzman Admit Provider Dr. Donald Guzman Other Provider Dr. Singh Bravo Attending Provider Dr. Singh Bravo Other Provider Dr. Deshawn Torrez Referring Provider Howard EL TEACHER, EL TEACHER-C Swetha Attending Provider Dr. Donald Park Attending Provider Dr. Jaida Kwong Referring Provider Dr. Jaida Kwong Referring Provider Dr. Gee Staples Attending Provider Erick EL TEACHER-C Lena Primary Care Provider Erick EL TEACHER-CLena Primary Care Provider Dr. Del Salamanca MD Attending Provider [phone] Del Salamanca MD Referring Provider Lawrence EL TEACHER-C, Swetha Attending Provider Lawrence EL TEACHER-C, Swetha Referring Provider Rugisseler EL TEACHER-C, Kaylie Mora Attending Provider Rufener EL TEACHER-C, Kaylie Mora Referring Provider Erick EL TEACHER-C, Lena Referring Provider Xavier ELIAS, Dr. Bennett Attending Provider Shan ELIAS, Dr. Hess Primary Care Provider Valencia Torrez MD, Dr. Hess Referring Provider Kandace Finn MD, Dr. Benjamin Attending Provider Aakash ELIAS, Dr. Benjamin Referring Provider Erick EL TEACHER-C, [place] Primary Care Provider Erick EL TEACHER-C, [place] Primary Care Provider Rugisseler EL TEACHER-C, Kaylie Mora Attending Provider Rufener EL TEACHER-C, Kaylie Mora Referring Provider Erick EL TEACHER-C, Lena Referring Provider [phone] Erick EL TEACHER-C, [place] Primary Care Provider Aakash ELIAS, Dr. Benjamin Attending Provider Aakash ELIAS, Dr. Benjamin Referring Provider Xavier ELIAS, Dr. Bennett Attending Provider Shan ELIAS, Dr. Hess Primary Care Provider Valencia Torrez MD, Dr. Hess Referring Provider Unavaila tory Erick EL TEACHER-C, [place] Primary Care Provider Xavier ELIAS, Dr. Bennett Attending Provider Shan ELIAS, Dr. Hess Primary Care Provider Valencia Torrez MD, Dr. Hess Referring Provider Kandace Torrez MD, Dr. Hess Primary Care Provider Valencia Torrez MD, Dr. Hess Referring Provider Unavailnirav Montielfener EL TEACHER-C, Kaylie Mora Other Provider Dr. Phuc Vega DO Attending Provider Aakash ELIAS, Dr. Benjamin Attending Provider [phone] Dr. Sourav Finn MD Referring Provider Erick EL TEACHER-C, Lena Primary Care Provider Hui EL TEACHER-C, Kaylie Mora Attending Provider Hui EL TEACHER-C, Kaylie Mora Referring Provider Tiffanie Lovett Attending Provider Erick EL TEACHER-C, Lena Primary Care Physician Erick EL TEACHER-C, Lena Referring Provider Dr. Donald Park MD Attending Physician Hui EL TEACHER-C, Kaylie Mora Attending Physician Hui EL TEACHER-C, Kaylie Mora Nurse Practitioner Dr. Phuc Vega DO Attending Physician [phone] Sourav Finn MD Attending Physician [phone] Tiffanie Lovett Attending Physician Dr. Deshawn Torrez MD Primary Care Physician Unamarshall Torrez MD, Dr. Hess Referring Provider Unavaila ble Tiffanie Lovett Referring Provider Erick, Lena Primary Care Unavailable Erick, Lena Referring Unavailable Kaylie Ames Attending Unavailable Sourav Finn Referring Unavailable Sourav Finn Attending Unavailable Erick, Lena Primary Care Unavailable Kaylie Ames Attending Unavailable Kaylie Ames Referring Unavailable Erick, Lena Primary Care Unavailable Erick, Lena Primary Care Unavailable Tiffanie Omer Referring Unavailable Tiffanie Omer Attending Unavailable Erick, Lena Primary Care Unavailable Tiffanie Omer Referring Unavailable Tiffanie Omer Attending Unavailable Erick, Lena Primary Care Unavailable Kaylie Ames Attending Unavailable Kaylie Ames Referring Unavailable Kaylie Ames Attending Unavailable Kaylie Ames Referring Unavailable Erick, Lena Primary Care Unavailable Sourav Finn Attending Unavailable Erick, Lena Primary Care Unavailable Sourav Finn Referring Unavailable Erick, Lena Referring Unavailable Kaylie Ames Attending Unavailable Erick, [place] Primary Care Unavailable Erick, [place] Primary Care Unavailable Erick, Lena Referring Unavailable Kaylie Ames Attending Unavailable Erick, Lena Primary Care Unavailable Donald Park Attending Unavailable Erick, Lena Referring Unavailable Erick, [place] Primary Care Unavailable Erick, Lena Referring Unavailable Kaylie Ames Attending Unavailable Phuc Vega Attending Unavailable Erick, [place] Primary Care Unavailable Kaylie Ames Consulting Unavailable Kaylie Ames Referring Unavailable Phuc Vega Attending Unavailable Erick, [place] Primary Care Unavailable Erick, Lena Referring Unavailable Tiffanie Omer Attending Unavailable Erick, [place] Primary Care Unavailable Erick, Lean Referring Unavailable Kaylie Ames Attending Unavailable Erick, [place] Primary Care Unavailable Kaylie Ames Attending Unavailable Kaylie Ames Referring Unavailable Erick, [place] Primary Care Unavailable Del Salamanca Attending Unavailable Del Salamanca Referring Unavailable Shan, Deshawn Referring Unavailable Shan, Deshawn Primary Care Unavailable Donald Park Attending Unavailable Erick, [place] Primary Care Unavailable Erick, Lena Referring Unavailable Donald Park Attending Unavailable Sourav Finn Referring Unavailable Sourav Finn Attending Unavailable Erick, [place] Primary Care Unavailable Erick, [place] Primary Care Unavailable Howard EL TEACHER, Swetha Referring Unavailable Howard EL TEACHER, Swetha Attending Unavailable Erick, [place] Primary Care Unavailable Kaylie Ames Attending Unavailable Kaylie Ames Referring Unavailable Erick, Lena Referring Unavailable Erick, [place] Primary Care Unavailable Donald Park Attending Unavailable Medications Current Medications Medication Drug Class(es) Dates Sig (Normalized) Sig (Original) Budesonide-Glycopyr -Formoterol (20 sources) Corticosteroid, beta2-Adrenergic Agonist Start: 02-07-2025 Budesonide-Glycopy r-Formoterol (Breztri Aerosphere) 160-9-4.8 mcg/actuation HFA aerosol inhaler Active 2 NMA INHALATION TWICE A DAY 10.7 11 February 07, 2025 12:35pm Complies with drug therapy Start: 02-07-2025 Budesonide-Gly copyr-Formoterol (Breztri Aerosphere) 160-9-4.8 mcg/actuation HFA aerosol inhaler Active 2 NMA INHALATION TWICE A DAY 10.7 11 February 07, 2025 12:35pm Start: 02-07-2025 End: 02-07-2025 Hvfqzdjzkn-Iakxvlbb-Fjqujqqu ol (Breztri Aerosphere) 160-9-4.8 mcg/actuation HFA aerosol inhaler Discontinued 2 NMA INHALATION TWICE A DAY 10.7 11 February 07, 2025 11:34am February 07, 2025 12:36pm Start: 12-25-2023 End: 02-07-2025 Omnzuccdms-Kunhnrfl-Fwzwbjhr ol (Breztri Aerosphere) 160-9-4.8 mcg/actuation HFA aerosol inhaler Discontinued 2 NMA INHALATION TWICE A DAY 10.7 11 December 25, 2023 11:11am February 07, 2025 11:34am Start: 12-25-2023 Budesonide-Gly copyr-Formoterol (Breztri Aerosphere) 160-9-4.8 mcg/actuation HFA aerosol inhaler Active 2 NMA INHALATION TWICE A DAY 10.7 11 December 25, 2023 11:11am Start: 12-25-2023 Budesonide-Gly copyr-Formoterol (Breztri Aerosphere) 160-9-4.8 mcg/actuation HFA aerosol inhaler Active 2 NMA INHALATION TWICE A DAY 10.7 December 25, 2023 11:11am Start: 12-01-2022 End: 12-25-2023 Zxxewlmhhk-Ogclmaja-Gxradboz ol (Breztri Aerosphere) 160-9-4.8 mcg/actuation HFA aerosol inhaler Discontinued 2 NMA INHALATION TWICE A DAY 10.7 11 December 01, 2022 1:34pm December 25, 2023 11:11am Start: 12-01-2022 End: 12-25-2023 Rjasgpdhpl-Ydyjqknq-Kftaehik ol (Breztri Aerosphere) 160-9-4.8 mcg/actuation HFA aerosol inhaler Discontinued 2 NMA INHALATION TWICE A DAY 10.7 December 01, 2022 1:34pm December 25, 2023 11:11am Start: 12-01-2022 Budesonide-Gly copyr-Formoterol (Breztri Aerosphere) 160-9-4.8 mcg/actuation HFA aerosol inhaler Active 2 INH INHALATION TWICE A DAY 10.7 December 01, 2022 12:34pm Start: 12-01-2022 Budesonide-Gly copyr-Formoterol (Breztri Aerosphere) 160-9-4.8 mcg/actuation HFA aerosol inhaler Active 2 INH INHALATION TWICE A DAY 10.7 December 01, 2022 1:34pm Start: 06-03-2022 End: 12-01-2022 Dqvpwcygzo-Kphiiuer-Kxoswzak ol (Breztri Aerosphere) 160-9-4.8 mcg/actuation HFA aerosol inhaler Discontinued 2 NMA INHALATION TWICE A DAY 10.7 11 June 03, 2022 3:46pm December 01, 2022 1:34pm Start: 06-03-2022 End: 12-01-2022 Zneavuuqqb-Eyakrmjn-Joofassa ol (Breztri Aerosphere) 160-9-4.8 mcg/actuation HFA aerosol inhaler Discontinued 2 NMA INHALATION TWICE A DAY 10.7 June 03, 2022 3:46pm December 01, 2022 1:34pm Start: 06-03-2022 End: 12-01-2022 Vtpzrlhmtt-Bgegtgjv-Rgjdmyat ol (Breztri Aerosphere) 160-9-4.8 mcg/actuation HFA aerosol inhaler Discontinued 2 INH INHALATION TWICE A DAY 10.7 June 03, 2022 2:46pm December 01, 2022 12:34pm Start: 06-03-2022 End: 12-01-2022 Qcttadvfwg-Qjlireuh-Bqldrexi ol (Breztri Aerosphere) 160-9-4.8 mcg/actuation HFA aerosol inhaler Discontinued 2 INH INHALATION TWICE A DAY 10.7 June 03, 2022 3:46pm December 01, 2022 1:34pm Start: 06-03-2022 Budesonide-Gly copyr-Formoterol (Breztri Aerosphere) 160-9-4.8 mcg/actuation HFA aerosol inhaler Active 2 INH INHALATION TWICE A DAY 10.7 June 03, 2022 3:46pm Start: 11-26-2021 End: 06-03-2022 Ggicqwvbms-Azufwmqr-Lelwqloe ol (Breztri Aerosphere) 160-9-4.8 mcg/actuation HFA aerosol inhaler Discontinued 2 NMA INHALATION TWICE A DAY 10.7 11 November 26, 2021 2:32pm June 03, 2022 3:46pm Start: 11-26-2021 End: 06-03-2022 Lokgdbttwx-Fwwccels-Qzyteptd ol (Breztri Aerosphere) 160-9-4.8 mcg/actuation HFA aerosol inhaler Discontinued 2 NMA INHALATION TWICE A DAY 10.7 November 26, 2021 2:32pm June 03, 2022 3:46pm Start: 11-26-2021 End: 06-03-2022 Jnsrbvxtpe-Jkiwblpp-Ijzjqbvv ol (Breztri Aerosphere) 160-9-4.8 mcg/actuation HFA aerosol inhaler Discontinued 2 INH INHALATION TWICE A DAY 10.7 November 26, 2021 1:32pm June 03, 2022 2:46pm Start: 11-26-2021 End: 06-03-2022 Jqhdsbxote-Keykosib-Qeuexjvs ol (Breztri Aerosphere) 160-9-4.8 mcg/actuation HFA aerosol inhaler Discontinued 2 INH INHALATION TWICE A DAY 10.7 November 26, 2021 2:32pm June 03, 2022 3:46pm Start: 11-26-2021 Budesonide-Gly copyr-Formoterol (Breztri Aerosphere) 160-9-4.8 mcg/actuation HFA aerosol inhaler Active 2 INH INHALATION TWICE A DAY 10.7 November 26, 2021 1:32pm Start: 08-30-2021 End: 11-26-2021 Hyaasvvjhs-Ukljbukh-Umwssysi ol (Breztri Aerosphere) 160-9-4.8 mcg/actuation HFA aerosol inhaler Discontinued 2 NMA INHALATION TWICE A DAY 10.7 3 August 30, 2021 1:00am November 26, 2021 2:32pm Start: 08-30-2021 End: 11-26-2021 Fzcbgraytp-Jviljfgt-Rqsuvxfj ol (Breztri Aerosphere) 160-9-4.8 mcg/actuation HFA aerosol inhaler Discontinued 2 NMA INHALATION TWICE A DAY 10.August 30, 2021 1:00am November 26, 2021 2:32pm Start: 08-30-2021 End: 11-26-2021 Qvclgyfzhc-Ghncnjma-Oxhwoldd ol (Breztri Aerosphere) 160-9-4.8 mcg/actuation HFA aerosol inhaler Discontinued 2 INH INHALATION TWICE A DAY 10.August 30, 2021 1:00am November 26, 2021 2:32pm Start: 08-30-2021 End: 11-26-2021 Moorcbrhju-Mgcogyeb-Zumhuwlq ol (Breztri Aerosphere) 160-9-4.8 mcg/actuation HFA aerosol inhaler Discontinued 2 INH INHALATION TWICE A DAY 10.August 30, 2021 12:00am November 26, 2021 1:32pm 12 hr guaiFENesin 1200 mg extended release oral tablet (13 sources) Start: 10-07-2023 take 1 tablet by mouth every twelve hours Guaifenesin 1,200 mg tablet extended release 12hr Active 1200 mg PO Q12H 60 6 October 07, 2023 12:00am Complies with drug therapy ipratropium bromide 0.2 mg/ml inhalation solution (7 sources) Anticholinergic Start: 01-24-2025 Ipratropium [place] 0.02 % solution Active 1.25 mL INHALATION EVERY 6-8 HOURS as needed for shortness of breath or wheezing 150 11 January 24, 2025 12:00am Complies with drug therapy LORazepam 0.5 mg oral tablet (13 sources) Benzodiazepine Start: 10-07-2023 take 1 tablet by mouth every six hours as needed for dyspnea Lorazepam 0.5 mg tablet Active 0.5 mg PO EVERY 6 HOURS as needed for dyspnea October 07, 2023 12:00am Complies with drug therapy methocarbamol 500 mg oral tablet (14 sources) Muscle Relaxant Start: 08-23-2023 take 1 tablet by mouth four times daily as needed for pain Methocarbamol 500 mg tablet Active 500 mg PO 4 TIMES DAILY NEEDED as needed for Muscle pain/spasm 40 0 August 23, 2023 9:13am Complies with drug therapy 24 hr oxybutynin chloride 5 mg extended release oral tablet (13 sources) Cholinergic Muscarinic Antagonist Start: 10-07-2023 take 1 tablet by mouth once daily Oxybutynin Chloride 5 mg tablet extended release 24hr Active 5 mg PO DAILY October 07, 2023 12:00am Complies with drug therapy pantoprazole 40 mg delayed release oral tablet (1 source) Proton Pump Inhibitor Start: 03-02-2025 take 1 tablet by mouth once daily Pantoprazole 40 mg tablet,delayed release (DR/EC) Active 40 mg PO daily 30 March 02, 2025 12:00am Complies with drug therapy monobasic potassium phosphate 0.0408 meq/ml oral solution (1 source) Start: 04-05-2025 Potassium Phosphate, Monobasic 500 mg tablet,soluble Active 1000 mg PO TWICE A DAY April 05, 2025 12:00am Complies with drug therapy roflumilast 0.25 mg oral tablet (18 sources) Phosphodiesterase 4 Inhibitor Start: 02-17-2025 take 1 tablet by mouth once daily Roflumilast (Daliresp) 250 mcg tablet Active 500 ug PO daily 60 February 17, 2025 1:46pm Start: 08-10-2024 End: 03-21-2025 take 1 tablet by mouth once daily Roflumilast (Daliresp) 250 mcg tablet Active 500 ug PO daily 60 March 21, 2025 7:19pm Complies with drug therapy Start: 08-10-2024 End: 02-17-2025 take 1 tablet by mouth once daily Roflumilast (Daliresp) 250 mcg tablet Discontinued 250 ug PO daily 30 August 10, 2024 1:00am February 17, 2025 1:50pm Start: 08-10-2024 take 1 tablet by gonzalo th once daily Roflumilast (Daliresp) 250 mcg tablet Active 250 ug PO daily 30 August 10, 2024 1:00am Start: 08-10-2024 take 1 tablet by gonzalo th once daily Roflumilast (Daliresp) 250 mcg tablet Active 250 ug PO daily August 10, 2024 1:00am voriconazole 50 mg oral tablet (13 sources) Azole Antifungal Start: 08-10-2024 take 1 tablet by mouth twice daily Voriconazole 50 mg tablet Active 150 mg PO TWICE A DAY August 10, 2024 1:00am Complies with drug therapy Completed/Discontinued Medications Medication Drug Class(es) Dates Sig (Normalized) Sig (Original) acetaminophen 500 mg oral tablet (1 source) Start: 11-24-2017 take 2 tablets by mouth every eight hours acetaminophen (TYLENOL) 500 mg tablet Take 2 tablets by mouth every 8 hours. 100 tablet 1 11/24/2017 Active Comment on above: Take 2 tablets by mo ut every 8 hours. acetaminophen 325 mg / HYDROcodone bitartrate 5 mg oral tablet (20 sources) Opioid Agonist Start: 10-12-2018 End: 10-14-2018 Hydrocodone-Acetami nophen 1 TABLET tablet Discontinued 1 {tbl} PO EVERY 4 HOURS NEEDED as needed for Pain 10 2 0 October 12, 2018 12:00am October 13, 2018 12:00am October 14, 2018 12:09am Chest pain Chest pain, unspecified Start: 10-12-2018 End: 10-14-2018 take 1 tablet by mouth every four hours as needed Hydrocodone-Acetaminophen Discontinued 1 TABLET PO EVERY 4 HOURS NEEDED 10 2 October 11, 2018 11:00pm October 13, 2018 11:09pm acetaminophen 325 mg / oxyCODONE hydrochloride 5 mg oral tablet (20 sources) Opioid Agonist Start: 03-29-2024 End: 07-20-2024 Oxycodone-Acetaminophen (Percocet) 5-325 mg tablet Discontinued 1 {tbl} PO Q8H as needed for pain 10 3 0 March 29, 2024 July 20, 2024 11:49am Closed fracture of right humerus Start: 08-23-2023 End: 11-23-2023 Oxycodone-Acetaminophen (Per cocet) 5-325 mg tablet Discontinued 1 {tbl} PO EVERY 6 HOURS as needed for pain 12 3 0 August 23, 2023 November 23, 2023 5:53am Acute chest wall pain Other chest pain Start: 12-20-2016 End: 02-04-2017 Oxycodone-Acetaminophen 1 TA BLET tablet Discontinued 1 - 2 {tbl} PO 4 TIMES DAILY NEEDED as needed for Pain 40 December 20, 2016 11:17am February 04, 2017 10:18am Start: 12-20-2016 End: 02-04-2017 take 1 tablet by mouth four times daily as needed Oxycodone-Acetaminophen Discontinued 1 - 2 TABLET PO 4 TIMES DAILY NEEDED 40 December 20, 2016 10:17am February 04, 2017 9:18am [id number] 200 actuat albuterol 0.09 mg/actuat metered dose inhaler (20 sources) beta2-Adrenergic Agonist Start: 12-01-2022 End: 03-06-2025 take 2.5 mg by inhalation every four hours as needed for wheezing Albuterol Sulfate 2.5 mg /3 mL (0.083 %) solution for nebulization Active 2.5 mg INHALATION Q4H as needed for Sob &/Or Wheezing 180 11 March 06, 2025 12:45pm 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 Chronic obstructive pulmonary disease, unspecified Complies with drug therapy Start: 02-26-2021 take 2 puff(s) by in halation every four hours as needed for wheezing albuterol HFA (PROVENTIL HFA, VENTOLIN HFA) 90 mcg/actuation inhaler INHALE 2 (TWO) PUFFS EVERY 4 HOURS NEEDED FOR SHORTNESS OF BREATH OR FOR WHEEZING 0 02/26/2021 Active Start: 03-08-2020 End: 08-28-2020 take 2.5 mg by inhalation every four hours as needed for wheezing Albuterol Sulfate 2.5 mg /3 mL (0.083 %) solution for nebulization Discontinued 2.5 mg INHALATION Q4H as needed for shortness of breath or wheezing 180 3 March 08, 2020 2:17pm August 28, 2020 10:24am Start: 12-06-2018 End: 11-01-2024 Albuterol Sulfate (Ventolin Hfa) 90 mcg/actuation HFA aerosol inhaler Discontinued 2 NMA INHALATION Q4H as needed for shortness of breath or wheezing 18 April 11, 2024 10:31am November 01, 2024 10:26am Start: 12-06-2018 End: 08-12-2023 take 1 puff(s) by inhalation every four hours Albuterol Sulfate (Ventolin Hfa) 90 mcg/actuation HFA aerosol inhaler Discontinued 2 PUFF INHALATION Q4H May 07, 2021 2:50pm June 03, 2022 2:46pm Comment on above: INHALE 2 (TWO) PUFFS EVERY 4 HOURS NEEDED FOR SHORTNESS OF BREATH OR FOR WHEEZING albuterol 0.833 mg/ml / ipratropium bromide 0.167 mg/ml inhalation solution (20 sources) Anticholinergic, beta2-Adrenergic Agonist Start: 08-28-2020 ipratropium-albutero l (DUONEB) 0.5 mg-3 mg(2.5 mg base)/3 mL nebu Inhale as instructed. 0 08/28/2020 Active Start: 08-28-2020 End: 01-07-2023 take 1 mL by inhalation every four hours as needed for wheezing Ipratropium-Albuterol 0.5 mg-3 mg(2.5 mg base)/3 mL solution for nebulization Discontinued 3 mL INHALATION EVERY 4 HOURS NEEDED as needed for SOB &/OR WHEEZING 180 6 August 28, 2020 1:00am January 07, 2023 2:34pm Start: 08-28-2020 End: 01-07-2023 take 1 mL by inhalation every four hours as needed Ipratropium-Albuterol Discontinued 3 ML INHALATION EVERY 4 HOURS NEEDED 180 August 28, 2020 12:00am January 07, 2023 1:34pm Comment on above: Inhale as instructed . alendronic acid 70 mg oral tablet (1 source) Bisphosphonate Start: 11-09-2016 alendronate (FOSAMAX) 70 mg tablet amoxicillin 875 mg / clavulanate 125 mg oral tablet (20 sources) Penicillin-class Antibacterial Start: 12-13-2024 End: 01-16-2025 Amoxicillin-Pot Clavulanate 875-125 mg tablet Discontinued 1 {tbl} PO Q12H 28 0 December 13, 2024 12:00am January 16, 2025 12:13pm Start: 07-20-2024 End: 12-09-2024 Amoxicillin-Pot Clavulanate 875-125 mg tablet Discontinued 1 {tbl} PO TWICE A DAY 6 0 July 26, 2024 2:58pm December 09, 2024 1:06pm Start: 11-27-2022 End: 01-07-2023 Amoxicillin-Pot Clavulanate 875-125 mg tablet Discontinued 1 {tbl} PO TWICE A DAY 8 4 0 November 27, 2022 12:00am January 07, 2023 2:34pm Start: 11-27-2022 End: 01-07-2023 take 1 tablet by mouth twice daily Amoxicillin-Pot Clavulanate Discontinued 1 TABLET PO TWICE A DAY 8 4 November 26, 2022 11:00pm January 07, 2023 1:34pm Start: 08-11-2018 End: 09-17-2018 Amoxicillin-Pot Clavulanate 1 EACH tablet Discontinued 1 NMA PO TWICE A DAY 17 0 August 11, 2018 1:00am September 17, 2018 9:42am TAKE WITH FOOD Start: 08-11-2018 End: 09-17-2018 Amoxicillin-Pot Clavulanate Discontinued 1 EACH PO TWICE A DAY August 11, 2018 12:00am September 17, 2018 8:42am TAKE WITH FOOD azithromycin 250 mg oral tablet (20 sources) Macrolide Antimicrobial Start: 08-23-2023 End: 01-24-2025 take 1 tablet by mouth once Azithromycin 250 mg tablet Discontinued 250 mg PO every Thursday, Thursday, and Thursday 12 January 19, 2024 10:32am January 24, 2025 3:04pm Smoking greater than 40 pack years Nicotine dependence, cigarettes, uncomplicated Start: 11-27-2022 End: 12-01-2022 take 2 tablets by mouth once daily Azithromycin 500 mg tablet Discontinued 500 mg PO DAILY 2 2 0 November 27, 2022 12:00am December 01, 2022 1:17pm start on day 2 of therapy budesonide 0.5 mg/ml inhalation suspension (20 sources) Corticosteroid Start: 08-28-2020 End: 11-26-2021 take 1 mg by inhalation twice daily Budesonide 1 mg/2 mL suspension for nebulization Discontinued 1 mg INHALATION TWICE A DAY 60 6 August 28, 2020 1:00am November 26, 2021 2:32pm Chronic obstructive pulmonary disease, unspecified 24 hr buPROPion hydrochloride 150 mg extended release oral tablet (13 sources) Aminoketone Start: 10-07-2023 End: 01-04-2024 Bupropion Hcl 150 mg tablet extended release 24 hr Discontinued 300 mg PO daily October 07, 2023 12:00am January 04, 2024 11:13am cefadroxil 500 mg oral capsule (20 sources) Cephalosporin Antibacterial Start: 12-20-2016 End: 02-04-2017 take 1 capsule by mouth twice daily Cefadroxil 500 MG capsule Discontinued 500 mg PO TWICE A DAY 20 0 December 20, 2016 12:00am February 04, 2017 10:17am docusate sodium 100 mg oral capsule (20 sources) Start: 12-20-2016 End: 02-04-2017 take 1 capsule by mouth twice daily Docusate Sodium (Dok) 100 MG capsule Discontinued 100 mg PO TWICE A DAY 30 0 December 20, 2016 12:00am February 04, 2017 10:17am doxycycline hyclate 100 mg oral tablet (20 sources) Tetracycline-class Drug Start: 11-23-2023 End: 07-20-2024 take 1 tablet by mouth once daily Doxycycline Hyclate 100 mg tablet Discontinued 100 mg PO DAILY 14 0 November 23, 2023 12:00am July 20, 2024 11:49am Start: 06-21-2023 End: 11-23-2023 take 1 capsule by mouth twice daily Doxycycline Monohydrate 100 mg capsule Discontinued 100 mg PO TWICE A DAY 20 0 June 21, 2023 1:00am November 23, 2023 5:52am Diqkggrhrek-Zmodlfcln-Mlkzgw er (20 sources) Anticholinergic, Corticosteroid, beta2-Adrenergic Agonist Start: 03-02-2020 End: 08-28-2020 Gehjsfhaghc-Sorxkyydb-Qiubwo er 100-62.5-25 mcg blister with device Discontinued 1 NMA INHALATION DAILY 60 5 March 02, 2020 12:53pm August 28, 2020 10:23am Chronic obstructive pulmonary disease, unspecified Start: 03-02-2020 End: 08-28-2020 Mtytfxvkdin-Wxujlknru-Orqvnl er 100-62.5-25 mcg blister with device Discontinued 1 NMA INHALATION DAILY 60 March 02, 2020 12:53pm August 28, 2020 10:23am Start: 03-02-2020 End: 08-28-2020 Ittoxeyuljc-Fwxqapjvs-Qgxiuw er Discontinued 1 EACH INHALATION DAILY 60 March 02, 2020 12:53pm August 28, 2020 10:23am Start: 03-02-2020 End: 08-28-2020 Fbdncovnmrv-Zrmysuhen-Fblhhi er Discontinued 1 EACH INHALATION DAILY 60 March 02, 2020 11:53am August 28, 2020 9:23am Start: 08-29-2019 End: 03-02-2020 Gnopymawfjs-Ltwjniqrp-Mdjsia er 100-62.5-25 mcg blister with device Discontinued 1 NMA INHALATION DAILY 60 5 August 29, 2019 2:38pm March 02, 2020 12:53pm Chronic obstructive pulmonary disease, unspecified Start: 08-29-2019 End: 03-02-2020 Jenkujuznzp-Lslxlrvfb-Caczoq er 100-62.5-25 mcg blister with device Discontinued 1 NMA INHALATION DAILY 60 August 29, 2019 2:38pm March 02, 2020 12:53pm Start: 08-29-2019 End: 03-02-2020 Qvervohhqxc-Ptdxhrkoz-Qzxnwi er Discontinued 1 EACH INHALATION DAILY 60 August 29, 2019 2:38pm March 02, 2020 12:53pm Start: 08-29-2019 End: 03-02-2020 Byhecpdhacl-Dvwwiljpr-Qsxkjl er Discontinued 1 EACH INHALATION DAILY 60 August 29, 2019 1:38pm March 02, 2020 11:53am Start: 09-17-2018 End: 08-29-2019 Tundklmvuwd-Mtlkvfszd-Rvadcn er 100-62.5-25 mcg blister with device Discontinued 1 NMA INHALATION DAILY 60 11 September 17, 2018 9:59am August 29, 2019 2:39pm Chronic obstructive pulmonary disease, unspecified Start: 09-17-2018 End: 08-29-2019 Qwllwsdwrwd-Nerwfxige-Xrddvd er 100-62.5-25 mcg blister with device Discontinued 1 NMA INHALATION DAILY 60 September 17, 2018 9:59am August 29, 2019 2:39pm Start: 09-17-2018 End: 08-29-2019 Ethcftdunxz-Mnqsaebsh-Kwfcir er Discontinued 1 EACH INHALATION DAILY 60 September 17, 2018 9:59am August 29, 2019 2:39pm Start: 09-17-2018 End: 08-29-2019 Hzdkhyufqip-Kuvgkdvvo-Idyiae er Discontinued 1 EACH INHALATION DAILY 60 September 17, 2018 8:59am August 29, 2019 1:39pm Start: 08-09-2018 End: 09-17-2018 take 1 dose by inhalation once daily as needed Omciazzacmb-Plkcairqd-Tufwpwzr 1 EACH blister with device Discontinued 1 NMA IH DAILY NEEDED as needed for Sob &/Or Wheezing August 09, 2018 1:00am September 17, 2018 10:00am Start: 08-09-2018 End: 09-17-2018 Bgqmqtfzyiw-Aiandwzps-Nwiaxt er Discontinued 1 EACH IH DAILY NEEDED August 09, 2018 1:00am September 17, 2018 10:00am Start: 08-09-2018 End: 09-17-2018 Zfxfmjbhllw-Cmbiesnis-Gqukpy er Discontinued 1 EACH IH DAILY NEEDED August 09, 2018 12:00am September 17, 2018 9:00am fluticasone-umec lidin-vilanter 100-62.5-25 mcg Trelegy Ellipta 100 mcg-62.5 mcg-25 mcg powder for inhalation 0 Active Comment on above: Trelegy Ellipta 100 mcg-62.5 mcg-25 mcg powder for inhalation Fluticasone-Umeclidin -Vilanter (20 sources) Start: 06-05-2021 End: 08-30-2021 Kbgwupujjfc-Zmdhoxjgo-Tpb anter (Trelegy Ellipta) 200-62.5-25 mcg blister with device Discontinued 1 NMA INHALATION DAILY 3 June 05, 2021 1:00am August 30, 2021 12:27pm Start: 06-05-2021 End: 08-30-2021 Oczrcvmmigi-Xvpufviad-Xplkki er (Trelegy Ellipta) 200-62.5-25 mcg blister with device Discontinued 1 NMA INHALATION DAILY June 05, 2021 1:00am August 30, 2021 12:27pm Start: 06-05-2021 End: 08-30-2021 Yfjislllyjv-Fjbtnrvbc-Qdlxjt er (Trelegy Ellipta) 200-62.5-25 mcg blister with device Discontinued 1 INH INHALATION DAILY June 05, 2021 1:00am August 30, 2021 12:27pm Start: 06-05-2021 End: 08-30-2021 Vblmdotjkrx-Llpfuudoo-Hnlwny er (Trelegy Ellipta) 200-62.5-25 mcg blister with device Discontinued 1 INH INHALATION DAILY 3 June 05, 2021 12:00am August 30, 2021 11:27am ibuprofen 400 mg oral tablet (1 source) Nonsteroidal Anti-inflammatory Drug Start: 11-24-2017 take 1 tablet by mouth every six hours as needed ibuprofen (MOTRIN) 400 mg tablet Take 1 tablet by mouth every 6 hours as needed. 50 tablet 0 11/24/2017 Active Comment on above: Take 1 tablet by gonzalo every 6 hours as needed. levoFLOXacin 750 mg oral tablet (1 source) Quinolone Antimicrobial Start: 03-21-2025 End: 03-28-2025 take 1 tablet by mouth every twenty-four hours Levofloxacin 750 mg tablet Discontinued 750 mg PO Q24H 7 7 March 21, 2025 12:00am March 27, 2025 12:00am March 28, 2025 12:10am magnesium hydroxide 80 mg/ml oral suspension (1 source) Start: 11-24-2017 take 30 mL by mouth once daily at bedtime magnesium hydroxide (MOM) 400 mg/5 mL suspension Take 30 mL by mouth daily at bedtime. 0 11/24/2017 Active Comment on above: Take 30 mL by mouth daily at bedtime. MEDICATION, NON-DATABASE (1 source) MEDICATION, NON-DATABASE Inhale as instructed as needed. triliogy 0 Active Comment on above: Inhale as instructed as needed. triliogy polyethylene glycol 3350 89136 mg powder for oral solution (1 source) Osmotic Laxative Start: 11-25-2017 take 1 dose by mouth once daily polyethylene glycol 3350 (MIRALAX, GLYCOLAX) 17 gram packet Take 1 Packet by mouth once daily. 30 Packet 1 11/25/2017 Active Comment on above: Take 1 Packet by gonzalo once daily. predniSONE 20 mg oral tablet (20 sources) Start: 07-20-2024 End: 08-10-2024 take 1 tablet by mouth once daily, then take 10 mg by mouth once daily Prednisone 20 mg tablet Discontinued 20 mg PO daily 10 July 20, 2024 1:00am August 10, 2024 2:23pm Lung nodule Solitary pulmonary nodule Hold prednisone 10 mg daily and begin this prescription. Take 2 tablets daily for 4 days then 1 tablet daily for 2 days. Then return to the prednisone 10mg daily prescription. Start: 11-23-2023 End: 07-20-2024 take 1 tablet by mouth once daily Prednisone 50 mg tablet Discontinued 50 mg PO DAILY 5 November 23, 2023 12:00am July 20, 2024 11:50am Start: 08-23-2023 End: 10-07-2023 take 2 tablets by mouth once daily Prednisone 20 mg tablet Discontinued 40 mg PO DAILY 10 5 August 23, 2023 1:00am October 07, 2023 1:21pm Start: 08-23-2023 take 40 mg by mouth once daily Prednisone Active 40 MG PO DAILY 10 August 23, 2023 12:00am Start: 07-15-2023 End: 11-01-2024 take 1 tablet by mouth once daily Prednisone 10 mg tablet Discontinued 10 mg PO daily 90 October 07, 2023 12:00am November 01, 2024 10:26am Start: 06-21-2023 End: 07-15-2023 take 2 tablets by mouth once daily Prednisone 20 mg tablet Discontinued 40 mg PO DAILY 8 June 21, 2023 1:00am July 15, 2023 12:41pm Start: 06-21-2023 End: 07-15-2023 take 40 mg by mouth once daily Prednisone Discontinued 40 MG PO DAILY June 21, 2023 12:00am July 15, 2023 11:41am Start: 12-01-2022 End: 01-07-2023 Prednisone 10 mg tablet Disc ontinued 10 mg PO daily 30 December 01, 2022 12:00am January 07, 2023 2:34pm take 4 tabs for three days, then 3 tabs for three days, then 2 tabs for three days, then 1 tab for 3 days promethazine hydrochloride 25 mg oral tablet (20 sources) Phenothiazine Start: 12-20-2016 End: 02-04-2017 take 1 tablet by mouth four times daily as needed for nausea Promethazine 25 MG tablet Discontinued 25 mg PO 4 TIMES DAILY NEEDED as needed for Nausea/Vomiting 30 December 20, 2016 11:11am February 04, 2017 10:18am revefenacin 0.0583 mg/ml inhalation solution (20 sources) Start: 08-28-2020 End: 11-26-2021 Revefenacin (Lisapecydneyi) 175 mcg/3 mL solution for nebulization Discontinued 175 ug INHALATION DAILY 90 6 August 28, 2020 1:00am November 26, 2021 2:32pm Chronic obstructive pulmonary disease, unspecified Problems Active Problems Problem Classification Problem Date Documented Da te Episodic/Chronic Administrative/social admission (13 sources) Discharge status; Translations: [Encounter for administrative examinations, unspecified] Onset: 11-19-2017 11-24-2017 Episodic Cancer of breast (20 sources) Infiltrating ductal carcinoma of breast, stage 1; Translations: [Malignant neoplasm of unspecified site of right female breast] Chronic Comment on above: Status post bilatera l mastectomy Cancer of breast (20 sources) History of malignant neoplasm of breast; Translations: [Personal history of malignant neoplasm of breast] Onset: 11-19-2017 11-24-2017 Episodic Comment on above: Right breast cancer, stage IA(pT1b pN0 M0), triple negative, status post right MRM with sentinel node biopsy and left prophylactic mastectomy.Received adjuvant Cytoxan and Taxotere x 4 cycles from 02/12/2017 to 04/23/2017.Comes for follow up.No evidence of disease clinically.Labs reviewed, WNL. Chronic obstructive pulmonary disease and bronchiectasis (20 sources) Chronic obstructive lung disease; Translations: [Chronic obstructive pulmonary disease, unspecified] Onset: 11-19-2017 11-19-2017 Chronic Comment on above: FEV1 35%, Alpha-1 no rmal Chronic obstructive pulmonary disease and bronchiectasis (4 sources) Chronic obstructive pulmonary disease and bronchiectasis Deficiency and other anemia (2 sources) Iron deficiency anemia secondary to blood loss (chronic); Translations: [Iron deficiency anemia secondary to blood loss (chronic)] Onset: 04-05-2025 Chronic Deficiency and other anemia (18 sources) Anemia; Translations: [Anemia, unspecified] 12-28-2024 Episodic Deficiency and other anemia (20 sources) Iron deficiency anemia; Translations: [Iron deficiency anemia, unspecified] Episodic Comment on above: S/P IV Iron replacem ent with Injectafer on 01/16/2025 and 01/23/2025, iron profile has corrected.Has not done Colonoscopy because of breathing problems. Deficiency and other anemia (2 sources) Anemia, unspecified; Translations: [Anemia, unspecified] Onset: 01-11-2025 Episodic Deficiency and other anemia (15 sources) Deficiency and other anemia Fracture of upper limb (13 sources) Closed fracture of humerus; Translations: [Unspecified fracture of shaft of humerus, right arm, initial encounter for closed fracture] 04-06-2024 Episodic Gastrointestinal hemorrhage (12 sources) Rectal hemorrhage; Translations: [Hemorrhage of anus and rectum] 07-26-2024 Episodic Maintenance chemotherapy; radiotherapy (12 sources) Patient encounter status; Translations: [Encounter for antineoplastic chemotherapy] 07-26-2024 Chronic Menopausal disorders (20 sources) Postmenopausal bleeding; Translations: [Postmenopausal bleeding] 08-18-2018 Chronic Mycoses (14 sources) Aspergillosis; Translations: [Aspergillosis, unspecified] Onset: 03-27-2025 07-26-2024 Episodic Nonspecific chest pain (20 sources) Chest pain; Translations: [Chest pain, unspecified] 11-25-2022 Episodic Nutritional deficiencies (20 sources) Deficiency of macronutrients; Translations: [Unspecified severe protein-calorie malnutrition] Onset: 11-19-2017 11-24-2017 Chronic Nutritional deficiencies (20 sources) Cachexia; Translations: [Cachexia] 04-06-2023 Episodic Comment on above: BMI 12.9 Osteoporosis (20 sources) Osteoporosis; Translations: [Age-related osteoporosis without current pathological fracture] 08-18-2018 Chronic Other aftercare (20 sources) Patient encounter status; Translations: [Encounter for adjustment and management of vascular access device] 01-22-2022 Episodic Other aftercare (2 sources) Encounter for adjustment and management of vascular access device; Translations: [Fitting and adjustment, other device] Onset: 04-05-2025 Episodic Other eye disorders (20 sources) Vitreous floaters; Translations: [Other vitreous opacities, unspecified eye] 08-18-2018 Chronic Other eye disorders (2 sources) Other vitreous opacities, unspecified eye; Translations: [Other vitreous opacities] Chronic Other female genital disorders (12 sources) Abnormal vaginal bleeding; Translations: [Abnormal uterine and vaginal bleeding, unspecified] 07-26-2024 Chronic Other gastrointestinal disorders (1 source) Oropharyngeal dysphagia; Translations: [Dysphagia, oropharyngeal phase] Episodic Other injuries and conditions due to external causes (19 sources) Systemic inflammatory response syndrome; Translations: [Systemic inflammatory response syndrome (SIRS) of non-infectious origin without acute organ dysfunction] 11-25-2022 Episodic Other injuries and conditions due to external causes (3 sources) Systemic inflammatory response syndrome (SIRS) of non-infectious origin without acute organ dysfunction; Translations: [Systemic inflammatory response syndrome, unspecified] 11-25-2022 Episodic Other lower respiratory disease (13 sources) Pleuritic pain; Translations: [Pleurodynia] 12-01-2023 Episodic Other lower respiratory disease (16 sources) Cough; Translations: [Cough] 07-20-2024 Episodic Other lower respiratory disease (20 sources) Nodule of lung; Translations: [Solitary pulmonary nodule] 07-20-2024 Episodic Comment on above: 2.2 x 2.4 cm right a pical left lower lobe Other lower respiratory disease (13 sources) Cavitation of lung; Translations: [Other disorders of lung] 07-05-2024 Episodic Other nervous system disorders (20 sources) Peripheral neuropathy due to and following chemotherapy; Translations: [Drug-induced polyneuropathy] 08-18-2018 Chronic Other nervous system disorders (2 sources) Drug-induced polyneuropathy; Translations: [Polyneuropathy due to other toxic agents] Chronic Other non-traumatic joint disorders (20 sources) Hip pain; Translations: [Pain in unspecified hip] 01-15-2022 Episodic Other non-traumatic joint disorders (1 source) Pain in unspecified hip; Translations: [Pain in joint, pelvic region and thigh] Episodic Other nutritional; endocrine; and metabolic disorders (2 sources) Hypophosphatemia; Translations: [Other disorders of phosphorus metabolism] 04-05-2025 Chronic Other screening for suspected conditions (not mental disorders or infectious disease) (13 sources) D-dimer above reference range; Translations: [Other specified abnormal findings of blood chemistry] 12-01-2023 Episodic Other skin disorders (12 sources) Skin lesion; Translations: [Disorder of the skin and subcutaneous tissue, unspecified] 07-26-2024 Episodic Other upper respiratory infections (12 sources) Upper respiratory infection; Translations: [Acute upper respiratory infection, unspecified] 07-26-2024 Episodic Pleurisy; pneumothorax; pulmonary collapse (20 sources) Left pneumothorax; Translations: [Pneumothorax, unspecified] Onset: 11-18-2017 11-24-2017 Episodic Pneumonia (except that caused by tuberculosis or sexually transmitted disease) (20 sources) Pneumonia; Translations: [Pneumonia, unspecified organism] 11-25-2022 Episodic Residual codes; unclassified (20 sources) Obstructive sleep apnea syndrome; Translations: [Obstructive sleep apnea (adult) (pediatric)] 08-29-2019 Chronic Residual codes; unclassified (19 sources) Tobacco user; Translations: [Tobacco use] 11-25-2022 Episodic Residual codes; unclassified (3 sources) Tobacco use; Translations: [Tobacco use disorder] 11-25-2022 Episodic Respiratory failure; insufficiency; arrest (adult) (13 sources) Chronic hypoxemic respiratory failure; Translations: [Chronic respiratory failure with hypoxia] 12-01-2023 Chronic Respiratory failure; insufficiency; arrest (adult) (20 sources) Hypoxemic respiratory failure; Translations: [Respiratory failure, unspecified with hypoxia] 12-06-2018 Episodic Substance-related disorders (20 sources) Smoker; Translations: [Nicotine dependence, unspecified, uncomplicated] Onset: 11-19-2017 11-24-2017 Chronic Comment on above: LDCT due May 11, not yet ordered Unclassified (1 source) Cough, unspecified; Translations: [Cough, unspecified] Onset: 08-09-2024 Past or Other Problems Problem Classification Problem Date Documented Date Episodic/Chronic Other lower respiratory disease (1 source) Solitary pulmonary nodule; Translations: [Solitary pulmonary nodule] Onset: 11-01-2024 Episodic Other lower respiratory disease (1 source) Other disorders of lung; Translations: [Other disorders of lung] Onset: 07-27-2024 Episodic Other nervous system disorders (1 source) Postoperative pain ; Translations: [Other acute postprocedural pain] Onset: 11-21-2017 11-24-2017 Episodic Unclassified (20 sources) Visual disturbances, right eye 01-08-2022 Results Test Name Value Interpretation Reference Range Facility CBC W/Diff, Automatedon 11-0 Absolute Lymph 0.31 X10 3/uL Low 0.83-4.51 [facility] Comment on above: Performed By: #### L 100.0100, L500.4050 #### [facility] [address] [place], [address] Absolute Neut 16.1 X10 3/uL High 2.0-7.7 [facility] Comment on above: Performed By: #### L 100.0100, L500.4050 #### [facility] [address] [place], [address] Basophils/100 WBC (Bld) 0.4 % Normal 0-1 [facility] Comment on above: Performed By: #### L 100.0100, L500.4050 #### [facility] [address] [place], [address] Eosinophils/100 WBC (Bld) 0.0 % Normal 0-5 [facility] Comment on above: Performed By: #### L 100.0100, L500.4050 #### [facility] [address] [place], [address] Erythrocyte distribution width (RBC) [Ratio] 14.5 % Normal 11.6-14.6 [facility] Comment on above: Performed By: #### L 100.0100, L500.4050 #### [facility] [address] [place], [address] Hematocrit (Bld) [Volume fraction] 30.9 % Low 37-47 [facility] Comment on above: Performed By: #### L 100.0100, L500.4050 #### [facility] [address] [place], [address] Hemoglobin (Bld) [Mass/Vol] 9.3 g/dL Low 12.0-15.0 [facility] Comment on above: Performed By: #### L 100.0100, L500.4050 #### [facility] [address] [place], [address] IG% 0.800 Normal 0.0-0.9 [facility] Comment on above: Result Comment: IG% - Immature Granulocytes (promyelocytes, myelocytes and metamyelocytes) > 1% indicates that a LEFT SHIFT is Present. Performed By: #### L 100.0100, L500.4050 #### [facility] [address] [place], [address] Lymphocytes/100 WBC (Bld) 1.8 % Low 19-41 [facility] Comment on above: Performed By: #### L 100.0100, L500.4050 #### [facility] [address] [place], [address] MCH (RBC) [Entitic mass] 30.0 pg Normal 27.0-32.0 [facility] Comment on above: Performed By: #### L 100.0100, [id number] #### [facility] [address] [place], [address] MCHC (RBC) [Mass/Vol] 30.1 g/dL Low 32-36 [facility] Comment on above: Performed By: #### L 100.0100, L500.4050 #### [facility] [address] [place], [address] MCV (RBC) [Entitic vol] 99.7 fL High 81-99 [facility] Comment on above: Performed By: #### L 100.0100, L500.4050 #### [facility] [address] [place], [address] Monocytes/100 WBC (Bld) 2.4 % Normal 0-10 [facility] Comment on above: Performed By: #### L 100.0100, L500.4050 #### [facility] [address] [place], [address] Neutrophils/100 WBC (Bld) 94.6 % High 47-70 [facility] Comment on above: Performed By: #### L 100.0100, L500.4050 #### [facility] [address] [place], [address] Nucleated RBC (Bld) [#/Vol] 0 10*3/uL Normal 0-5 [facility] Comment on above: Performed By: #### L 100.0100, L500.4050 #### [facility] [address] [place], [address] Platelet mean volume (Bld) [Entitic vol] 8.8 fL Normal 6.2-12.0 [facility] Comment on above: Performed By: #### L 100.0100, L500.4050 #### [facility] [address] [place], [address] Platelets (Bld) [#/Vol] 494 10*3/uL High 150-450 [facility] Comment on above: Performed By: #### L 100.0100, L500.4050 #### [facility] [address] [place], [address] RBC (Bld) [#/Vol] 3.10 10*6/uL Low 4.2-5.4 [facility] Comment on above: Performed By: #### L 100.0100, L500.4050 #### [facility] [address] [place], [address] RDW SD 52.4 fl High 35.1-43.9 [facility] Comment on above: Performed By: #### L 100.0100, L500.4050 #### [facility] [address] [place], [address] WBC (Bld) [#/Vol] 17.0 10*3/uL High 4.4-11.0 [facility] Comment on above: Performed By: #### L 100.0100, L500.4050 #### [facility] [address] [place], [address] Comprehensive Metabolic Prof ilon 04-26-2025 Albumin [Mass/Vol] 3.6 g/dL Normal 3.4-4.8 [facility] Comment on above: Performed By: #### L 100.0100, L500.4050 #### [facility] [address] [place], [address] Albumin/Globulin [Mass ratio] 1.2 {ratio} Normal 0.9-2.4 [facility] Comment on above: Performed By: #### L 100.0100, L500.4050 #### [facility] [address] [place], [address] ALK PHOS 126 U/L High 35-104 [facility] Comment on above: Performed By: #### L 100.0100, L500.4050 #### [facility] [address] [place], [address] ALT [Catalytic activity/Vol] 13 U/L Normal <=34 [facility] Comment on above: Performed By: #### L 100.0100, L500.4050 #### [facility] [address] [place], [address] AST [Catalytic activity/Vol] 18 U/L Normal <=31 [facility] Comment on above: Performed By: #### L 100.0100, L500.4050 #### [facility] [address] [place], [address] Bilirubin [Mass/Vol] 0.19 mg/dL Normal 0.00-1.30 [facility] Comment on above: Performed By: #### L 100.0100, L500.4050 #### [facility] [address] [place], [address] BUN/CRE 32.4 RATIO High 10-20 [facility] Comment on above: Performed By: #### L 100.0100, L500.4050 #### [facility] [address] [place], [address] Calcium [Mass/Vol] 9.2 mg/dL Normal 7.6-11.0 [facility] Comment on above: Performed By: #### L 100.0100, L500.4050 #### [facility] [address] [place], [address] Chloride [Moles/Vol] 104 mmol/L Normal 98-108 [facility] Comment on above: Performed By: #### L 100.0100, L500.4050 #### [facility] [address] [place], [address] CO2 [Moles/Vol] 27.3 mmol/L Normal 21.0-32.0 [facility] Comment on above: Performed By: #### L 100.0100, L500.4050 #### [facility] [address] [place], [address] Creatinine [Mass/Vol] 0.49 mg/dL Low 0.70-1.20 [facility] Comment on above: Performed By: #### L 100.0100, L500.4050 #### [facility] [address] [place], [address] GAP 11 Normal 5-15 [facility] Comment on above: Performed By: #### L 100.0100, L500.4050 #### [facility] [address] [place], [address] GFR/1.73 sq M.predicted among non-blacks MDRD (S/P/Bld) [Vol rate/Area] 100 mL/min/{1.73_m2} Normal >60 [facility] Comment on above: Result Comment: mL/m in/1.73m2 CKD-EPI Creatinine Equation (2020) Performed By: #### L 100.0100, L500.4050 #### [facility] [address] [place], [address] Globulin (S) [Mass/Vol] 3.0 g/dL Normal 2.2-4.2 [facility] Comment on above: Performed By: #### L 100.0100, L500.4050 #### [facility] [address] [place], [address] Glucose [Mass/Vol] 134 mg/dL High 70-99 [facility] Comment on above: Performed By: #### L 100.0100, L500.4050 #### [facility] [address] [place], [address] Potassium [Moles/Vol] 3.3 mmol/L Normal 3.3-5.1 [facility] Comment on above: Performed By: #### L 100.0100, L500.4050 #### [facility] [address] [place], [address] Sodium [Moles/Vol] 143 mmol/L Normal 133-145 [facility] Comment on above: Performed By: #### L 100.0100, L500.4050 #### [facility] [address] [place], [address] T PROT 6.5 g/dL Normal 5.9-8.4 [facility] Comment on above: Performed By: #### L 100.0100, L500.4050 #### [facility] [address] [place], [address] Urea nitrogen [Mass/Vol] 16 mg/dL Normal 4-19 [facility] Comment on above: Performed By: #### L 100.0100, L500.4050 #### [facility] [address] [place], [address] Oncology Visit Reporton 03-22 Oncology Visit Report [facility] [address] [place] [address] OFFICE VISIT Date of Service: 04/05/25 1027 MR#: [id number] Acct: [id number] Name: PAULASHLEE L Rep #: [id number] : 1950 From: Donald Park MD Age/Sex: 74/F Location: [facility] Status: Signed HPI Subjective Date of Service 04/05/25 Chief Complaint F/u for Anemia History of Present Illness 74 y.o.woman presented with abnormal mammogram, she had stereotactic breast biopsy on November 26, 2016 which showed invasive ductal carcinoma with atypical features, nuclear grade 2, ER/KY negative, HER- 2 was 1-2+ by IHC, FISH negative. 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 Pathology showed Invasive ductal carcinoma, tumor size 8mm, sentinel node 1/1 negative, pT1b, pN0 M0, Stage IA disease. Received adjuvant chemotherapy with Taxotere/Cytoxan from 02/12/17 to 04/23/2017. Developed post menopausal bleeding 02/26/17 and subsequently underwent transvaginal US 03/13/[address] Treadwell which demonstrated possible 3mm endometrial polyp, fluid filled endometrial cavity, uterine fibroid and 2.7 complex left ovarian cyst. Endometrial curettage on 06/12/2017 showed atrophic endometrium. She remains on observation. She was found to have Iron deficiency anemia with Positive stool occult blood, got IV Iron replacement with Injectafer on 01/16/2025 and 01/23/2025. Comes in for follow up. Feels well, now on Home O2 by [place]. Has not done Endoscopy because of breating problems. [facility] Medical History Pleurisy Collapsed lung VATS bullectomy/doxy peurodesis (left) Port placement Osteoporosis COPD (chronic obstructive pulmonary disease) Cataract Visual disturbances, right eye Surgical History History of exploratory laparotomy History of bilateral mastectomy History of breast biopsy History of cataract extraction Family History Mother Hypoglycemia Neuropathy Thyroid disorder Hypertension Heart disease Diverticulitis Father COPD (chronic obstructive pulmonary disease) Social History Smoking Status: Current every day smoker tobacco type: cigarettes alcohol intake: never substance use type: does not use Intake Vital Signs 01/11/25 15:57 02/17/25 08:11 04/05/25 10:28 Height 5 ft 3 in 5 ft 4 in 5 ft 4 in Weight: 33.112 kg BMI 12.5 BP 98/59 L Blood Pressure Location Lt brachial Position Sitting Respiration 18 Pulse 100 Pulse Source Monitor Temp 98.8 F Temperature Source Temporal Artery Pulse Oximetry (%) 98 Oxygen Delivery Method nasal canula Oxygen Flow Rate (L/min) 3 Intake Accompanied by: Is patient in pain?: Yes (chest/stomach) Pain scale (1-10): 5 Allergies No Known Allergies Allergy (Verified 04/05/25 10:33) Medications ???Medication ???Instructions ???Recorded ???Confirmed ???Type methocarbamol 500 mg tablet 500 mg PO 4X/DAY PRN PRN Muscle 04/05/25 Rx pain/spasm #40 tabs guaifenesin 1,200 mg tablet, 1,200 mg PO Q12H #60 tabs 10/07/23 04/05/25 Rx extended release 12 hr lorazepam 0.5 mg tablet 0.5 mg PO Q6H PRN dyspnea 10/07/23 04/05/25 History oxybutynin chloride 5 mg 5 mg PO DAILY 10/07/23 04/05/25 Hi story tablet,extended release 24 hr voriconazole 50 mg tablet 150 mg PO BID 08/10/24 04/05/25 Hi story albuterol sulfate 90 mcg/actuation 2 puff inhalation Q4H PRN 04/05/25 Rx aerosol inhaler (Ventolin HFA) shortness of breath or wheezing #18 grams prednisone 10 mg tablet 10 mg PO QDAY #90 tabs 11/01/24 Rx azithromycin 250 mg tablet 250 mg PO QMWF #12 tabs 01/24/25 1 Rx Held on 03/20/25. Instructions: Order Changed ipratropium bromide 0.02 % 1.25 ml inhalation Q6-8H PRN 01/2404/05/25 Rx solution for inhalation shortness of breath or wheezing #150 mL budesonide 160 mcg-glycopyr 9 2 inh inhalation BID #10.7 grams 0 8/19/25 10/15/25 Rx mcg-formot 4.8 mcg/actuation HFA inhaler (Breztri Aerosphere) pantoprazole 40 mg tablet,delayed 40 mg PO QDAY #30 tabs 03/02/25 1 Rx release albuterol sulfate 2.5 mg/3 mL 2.5 mg (3 mL) inhalation Q4H PRN 0 03/06/25 04/05/25 Rx (0.083 %) solution for nebulization Sob /Or Wheezing #180 mL roflumilast 250 mcg tablet 500 mcg (2 x 250 mcg) PO QDAY #60 03/21/25 04/05/25 Rx (Daliresp) tabs potassium phosphate, monobasic 500 1,000 mg (2 x 500 mg) PO BID #20 04/05/25 04/05/25 Rx mg soluble tablet tabs Have you fallen in the past ye (more content not included)... Normal [facility] Upper GI Dual Contraston Upper GI Dual Contrast [facility] Imaging Services [address] [place] [id number] Upper GI Dual Contrast MR#: [id number] Acct: [id number] Name: ASHLEE MILLER Rep #: [id number] : 1950 F 74 From: Calin dudley MD PCP: LARRY Garcia Status: REG CLI Study: Upper GI Dual Contrast Date of Exam: 04/05/25 Exam# [id number] Ordering Dr: Tiffanie Omer PROCEDURE: UPPER GI DUAL CONTRAST 04/05/2025 REASON FOR EXAM: ANEMIA, FOBT+ TECHNIQUE: UPPER GI DUAL CONTRAST FLUOROSCOPIC TIME: A minute and 16 seconds. Radiation dose: 9.69 mGy. FLUOROGRAPHIC IMAGES: 7 COMPARISON: None FINDINGS: [employer] Image: Non-obstructed bowel gas pattern. No significant retained colonic stool. The patient ingested barium. Imaging of the esophagus stomach and duodenum was obtained. There is no evidence of esophageal obstruction. No evidence of gastroesophageal reflux. The stomach and duodenum are unremarkable. RAD/Upper GI Dual Contrast IMPRESSION: Unremarkable air-contrast upper GI series. Reading Location: [place] [address] CC: LARRY Suarez; LILLI Romero [employer] Supervisor: Signed Normal [facility] Absolute lymphocyte countOrd ered By: [facility] on 03-29-2025 Lymphocytes Auto (Unsp spec) [#/Vol] 1.26 10*3/uL 0.83-4.51 [facility] Absolute neutrophil countOrd ered By: Donald [facility] on 03-29-2025 Neutrophils (Bld) [#/Vol] 11.5 10*3/uL High 2.0-7.7 [facility] Anion gap in Serum or Plasma Ordered By: [facility] on 03-29-2025 Anion gap [Moles/Vol] 8 mmol/L 5-15 [facility] Automated lymphocyte count a s percentage of total leukocytesOrdered By: [facility] on 03-29-2025 Lymphocytes/100 WBC Auto (Unsp spec) 9.2 % Low 19-41 [facility] BUN/creatinine ratioOrdered By: [facility] on 03-29-2025 Urea nitrogen/Creatinine [Mass ratio] 61.0 mg/mg High 10- [facility] Basophil percentageOrdered B y: Donald [facility] on 03-29-2025 Basophils/100 WBC (Bld) 0.4 % 0-1 [facility] Bilirubin, totalOrdered By: [facility] on 03-29-2025 Bilirubin [Mass/Vol] 0.17 mg/dL 0.00-1.30 [facility] CBC W/Diff, Automatedon Absolute Lymph 1.26 X10 3/uL Normal 0.83-4.51 [facility] Comment on above: Performed By: #### L 504.2610, L501.5200, L503.6030, L100.0100, L500.4050, L501.2300, L503.6550, L503.0106 #### [facility] Laboratory [address] [place], [place], [id number] Absolute Neut 11.5 X10 3/uL High 2.0-7.7 [facility] Comment on above: Performed By: #### L 504.2610, L501.5200, L503.6030, L100.0100, L500.4050, L501.2300, L503.6550, L503.0106 #### [facility] [address] [place], [address] Basophils/100 WBC (Bld) 0.4 % Normal 0-1 [facility] Comment on above: Performed By: #### L 504.2610, L501.5200, L503.6030, L100.0100, L500.4050, L501.2300, L503.6550, L503.0106 #### [facility] [address] [place], [address] Eosinophils/100 WBC (Bld) 1.0 % Normal 0-5 [facility] Comment on above: Performed By: #### L 504.2610, L501.5200, L503.6030, L100.0100, L500.4050, L501.2300, L503.6550, L503.0106 #### [facility] [address] [place], [address] Erythrocyte distribution width (RBC) [Ratio] 16.9 % High 11.6-14.6 [facility] Comment on above: Performed By: #### L 504.2610, L501.5200, L503.6030, L100.0100, L500.4050, L501.2300, L503.6550, L503.0106 #### [facility] [address] [place], [address] Hematocrit (Bld) [Volume fraction] 34.3 % Low 37-47 [facility] Comment on above: Performed By: #### L 504.2610, L501.5200, L503.6030, L100.0100, L500.4050, L501.2300, L503.6550, L503.0106 #### [facility] [address] [place], [address] Hemoglobin (Bld) [Mass/Vol] 10.8 g/dL Low 12.0-15.0 [facility] Comment on above: Performed By: #### L 504.2610, L501.5200, L503.6030, L100.0100, L500.4050, L501.2300, L503.6550, L503.0106 #### [facility] [address] [place], [address] IG% 0.700 Normal 0.0-0.9 [facility] Comment on above: Result Comment: IG% - Immature Granulocytes (promyelocytes, myelocytes and metamyelocytes) > 1% indicates that a LEFT SHIFT is Present. Performed By: #### L 504.2610, L501.5200, L503.6030, L100.0100, L500.4050, L501.2300, L503.6550, L503.0106 #### [facility] [address] [place], [address] Lymphocytes/100 WBC (Bld) 9.2 % Low 19-41 [facility] Comment on above: Performed By: #### L 504.2610, L501.5200, L503.6030, L100.0100, L500.4050, L501.2300, L503.6550, L503.0106 #### [facility] [address] [place], [address] MCH (RBC) [Entitic mass] 30.0 pg Normal 27.0-32.0 [facility] Comment on above: Performed By: #### L 504.2610, L501.5200, L503.6030, L100.0100, L500.4050, L501.2300, L503.6550, L503.0106 #### [facility] [address] [place], [address] MCHC (RBC) [Mass/Vol] 31.5 g/dL Low 32-36 [facility] Comment on above: Performed By: #### L 504.2610, L501.5200, L503.6030, L100.0100, L500.4050, L501.2300, L503.6550, L503.0106 #### [facility] [address] [place], [address] MCV (RBC) [Entitic vol] 95.3 fL Normal 81-99 [facility] Comment on above: Performed By: #### L 504.2610, L501.5200, L503.6030, L100.0100, L500.4050, L501.2300, L503.6550, L503.0106 #### [facility] [address] [place], [address] Monocytes/100 WBC (Bld) 4.5 % Normal 0-10 [facility] Comment on above: Performed By: #### L 504.2610, L501.5200, L503.6030, L100.0100, L500.4050, L501.2300, L503.6550, L503.0106 #### [facility] [address] [place], [address] Neutrophils/100 WBC (Bld) 84.2 % High 47-70 [facility] Comment on above: Performed By: #### L 504.2610, L501.5200, L503.6030, L100.0100, L500.4050, L501.2300, L503.6550, L503.0106 #### [facility] [address] [place], [address] Nucleated RBC (Bld) [#/Vol] 0 10*3/uL Normal 0-5 [facility] Comment on above: Performed By: #### L 504.2610, L501.5200, L503.6030, L100.0100, L500.4050, L501.2300, L503.6550, L503.0106 #### [facility] [address] [place], [address] Platelet mean volume (Bld) [Entitic vol] 8.7 fL Normal 6.2-12.0 [facility] Comment on above: Performed By: #### L 504.2610, L501.5200, L503.6030, L100.0100, L500.4050, L501.2300, L503.6550, L503.0106 #### [facility] [address] [place], [address] (981) Platelets (Bld) [#/Vol] 395 10*3/uL Normal 150-450 [facility] Comment on above: Performed By: #### L 504.2610, L501.5200, L503.6030, L100.0100, L500.4050, L501.2300, L503.6550, L503.0106 #### [facility] [address] [place], [address] RBC (Bld) [#/Vol] 3.60 10*6/uL Low 4.2-5.4 [facility] Comment on above: Performed By: #### L 504.2610, L501.5200, L503.6030, L100.0100, L500.4050, L501.2300, L503.6550, L503.0106 #### [facility] [address] [place], [address] (119) RDW SD 59.7 fl High 35.1-43.9 [facility] Comment on above: Performed By: #### L 504.2610, L501.5200, L503.6030, L100.0100, L500.4050, L501.2300, L503.6550, L503.0106 #### [facility] [address] [place], [address] WBC (Bld) [#/Vol] 13.7 10*3/uL High 4.4-11.0 [facility] Comment on above: Performed By: #### L 504.2610, L501.5200, L503.6030, L100.0100, L500.4050, L501.2300, L503.6550, L503.0106 #### [facility] [address] [place], [address] Carbon dioxide, total [Moles /volume] in Central venous bloodOrdered By: Donald Park on 03-29-2025 CO2 [Moles/Vol] 30.1 mmol/L 21.0-32.0 [facility] Chloride assayOrdered By: Romelia Park on 03-29-2025 Chloride [Moles/Vol] 103 mmol/L 98-108 [facility] Comprehensive Metabolic Prof ilon 03-29-2025 Albumin [Mass/Vol] 3.7 g/dL Normal 3.4-4.8 [facility] Comment on above: Performed By: #### L 504.2610, L501.5200, L503.6030, L100.0100, L500.4050, L501.2300, L503.6550, L503.0106 #### [facility] [address] [place], [address] Albumin/Globulin [Mass ratio] 1.3 {ratio} Normal 0.9-2.4 [facility] Comment on above: Performed By: #### L 504.2610, L501.5200, L503.6030, L100.0100, L500.4050, L501.2300, L503.6550, L503.0106 #### [facility] [address] [place], [address] ALK PHOS 129 U/L High 35-104 [facility] Comment on above: Performed By: #### L 504.2610, L501.5200, L503.6030, L100.0100, L500.4050, L501.2300, L503.6550, L503.0106 #### [facility] [address] [place], [address] ALT [Catalytic activity/Vol] 15 U/L Normal <=34 [facility] Comment on above: Performed By: #### L 504.2610, L501.5200, L503.6030, L100.0100, L500.4050, L501.2300, L503.6550, L503.0106 #### [facility] [address] [place], [address] AST [Catalytic activity/Vol] 17 U/L Normal <=31 [facility] Comment on above: Performed By: #### L 504.2610, L501.5200, L503.6030, L100.0100, L500.4050, L501.2300, L503.6550, L503.0106 #### [facility] [address] [place], [address] Bilirubin [Mass/Vol] 0.17 mg/dL Normal 0.00-1.30 [facility] Comment on above: Performed By: #### L 504.2610, L501.5200, L503.6030, L100.0100, L500.4050, L501.2300, L503.6550, L503.0106 #### [facility] [address] [place], [address] BUN/CRE 61.0 RATIO High 10-20 [facility] Comment on above: Performed By: #### L 504.2610, L501.5200, L503.6030, L100.0100, L500.4050, L501.2300, L503.6550, L503.0106 #### [facility] [address] [place], [address] Calcium [Mass/Vol] 9.4 mg/dL Normal 7.6-11.0 [facility] Comment on above: Performed By: #### L 504.2610, L501.5200, L503.6030, L100.0100, L500.4050, L501.2300, L503.6550, L503.0106 #### [facility] [address] [place], [address] Chloride [Moles/Vol] 103 mmol/L Normal 98-108 [facility] Comment on above: Performed By: #### L 504.2610, L501.5200, L503.6030, L100.0100, L500.4050, L501.2300, L503.6550, L503.0106 #### [facility] [address] [place], [address] CO2 [Moles/Vol] 30.1 mmol/L Normal 21.0-32.0 [facility] Comment on above: Performed By: #### L 504.2610, L501.5200, L503.6030, L100.0100, L500.4050, L501.2300, L503.6550, L503.0106 #### [facility] [address] [place], [address] Creatinine [Mass/Vol] 0.39 mg/dL Low 0.70-1.20 [facility] Comment on above: Performed By: #### L 504.2610, L501.5200, L503.6030, L100.0100, L500.4050, L501.2300, L503.6550, L503.0106 #### [facility] [address] [place], [address] ECRCL 31.86 ml/min Low 50-250 [facility] Comment on above: Performed By: #### L 504.2610, L501.5200, L503.6030, L100.0100, L500.4050, L501.2300, L503.6550, L503.0106 #### [facility] [address] [place], [address] GAP 8 Normal 5-15 [facility] Comment on above: Performed By: #### L 504.2610, L501.5200, L503.6030, L100.0100, L500.4050, L501.2300, L503.6550, L503.0106 #### [facility] [address] [place], [place], [address] (806 GFR/1.73 sq M.predicted among non-blacks MDRD (S/P/Bld) [Vol rate/Area] 106 mL/min/{1.73_m2} Normal >60 [facility] Comment on above: Result Comment: mL/m in/1.73m2 CKD-EPI Creatinine Equation (2020) Performed By: #### L 504.2610, L501.5200, L503.6030, L100.0100, L500.4050, L501.2300, L503.6550, L503.0106 #### [facility] [address] [place], [place], [id number] (152 Globulin (S) [Mass/Vol] 2.9 g/dL Normal 2.2-4.2 [facility] Comment on above: Performed By: #### L 504.2610, L501.5200, L503.6030, L100.0100, L500.4050, L501.2300, L503.6550, L503.0106 #### [facility] [address] [place], [address] Glucose [Mass/Vol] 90 mg/dL Normal 70-99 [facility] Comment on above: Performed By: #### L 504.2610, L501.5200, L503.6030, L100.0100, L500.4050, L501.2300, L503.6550, L503.0106 #### [facility] [address] [place], [address] Potassium [Moles/Vol] 3.5 mmol/L Normal 3.3-5.1 [facility] Comment on above: Performed By: #### L 504.2610, L501.5200, L503.6030, L100.0100, L500.4050, L501.2300, L503.6550, L503.0106 #### [facility] [address] [place], [address] Sodium [Moles/Vol] 142 mmol/L Normal 133-145 [facility] Comment on above: Performed By: #### L 504.2610, L501.5200, L503.6030, L100.0100, L500.4050, L501.2300, L503.6550, L503.0106 #### [facility] [address] [place], [address] T PROT 6.6 g/dL Normal 5.9-8.4 [facility] Comment on above: Performed By: #### L 504.2610, L501.5200, L503.6030, L100.0100, L500.4050, L501.2300, L503.6550, L503.0106 #### [facility] [address] [place], [address] Urea nitrogen [Mass/Vol] 24 mg/dL High 4-19 [facility] Comment on above: Performed By: #### L 504.2610, L501.5200, L503.6030, L100.0100, L500.4050, L501.2300, L503.6550, L503.0106 #### [facility] [address] [place], [address] Eosinophil percentageOrdered By: Donald Park on 03-29-2025 Eosinophils/100 WBC (Bld) 1.0 % 0-5 [facility] Erythrocyte distribution wid th ratioOrdered By: Donald Park on 03-29-2025 Erythrocyte distribution width (RBC) [Ratio] 16.9 % High 11.6-14.6 [facility] Erythrocyte distribution wid th standard deviationOrdered By: Donald Xavier on 03-29-2025 Erythrocyte distribution width (RBC) [Ratio] 59.7 fl High 35.1-43.9 [facility] Ferritinon 03-29-2025 Ferritin [Mass/Vol] 949 ng/mL High 22-378 [facility] Comment on above: Performed By: #### L 504.2610, L501.5200, L503.6030, L100.0100, L500.4050, L501.2300, L503.6550, L503.0106 #### [facility] Laboratory [facility] [address] [place], [place], [id number] Glomerular filtration rate ( GFR) estimation/1.73 sq m using serum, plasma, or whole bOrdered By: [facility] on 03-29-2025 GFR/1.73 sq M.predicted among non-blacks MDRD (S/P/Bld) [Vol rate/Area] 106 mL/min/{1.73_m2} >60 [facility] Comment on above: mL/min/1.73m2 CKD-EP I Creatinine Equation (2020) Hematocrit Auto (Bld) [Volum e fraction]Ordered By: Donald Park on 03-29-2025 Hematocrit (Bld) [Volume fraction] 34.3 % Low 37-47 [facility] Hemoglobin measurementOrdere d By: Donald [facility] on 03-29-2025 Hemoglobin (Bld) [Mass/Vol] 10.8 g/dL Low 12.0-15.0 [facility] Immature granulocytes/100 WB C Auto (Bld)Ordered By: Donald Park on 03-29-2025 Immature granulocytes/100 WBC (Bld) 0.700 % 0.0-0.9 [facility] Comment on above: IG% - Immature Granu locytes (promyelocytes, myelocytes and metamyelocytes) > 1% indicates that a LEFT SHIFT is Present. Iron measurement (mass/mass) Ordered By: Donald Park on 03-29-2025 Iron (Unsp spec) [Mass/Mass] 72 ug/dL 50-170 [facility] Iron+Iron Binding Capacityon 03-29-2025 TIBC 205 ug/dL Low 250-450 [facility] Comment on above: Performed By: #### L 504.2610, L501.5200, L503.6030, L100.0100, L500.4050, L501.2300, L503.6550, L503.0106 #### [facility] [address] [place], [address] LDHon 03-29-2025 LDH 152 U/L Normal 84-246 [facility] Comment on above: Order Comment: 1 Performed By: #### L 100.0100, L500.4050 #### [facility] [address] [place], [place], [id number] Laboratory - Chemistry and C hemistry - challengeOrdered By: Donald Park on 03-29-2025 AST [Catalytic activity/Vol] 17 U/L <32 [facility] Lactate dehydrogenase (LDH) measurementOrdered By: Donald Park on 03-29-2025 LDH [Catalytic activity/Vol] 152 U/L 84-246 [facility] MCV (mean corpuscular volume ) determinationOrdered By: Donald Park on 03-29-2025 MCV (RBC) [Entitic vol] 95.3 fL 81-99 [facility] Magnesiumon 03-29-2025 Magnesium [Mass/Vol] 2.1 mg/dL Normal 1.5-2.2 [facility] Comment on above: Performed By: #### L 504.2610, L501.5200, L503.6030, L100.0100, L500.4050, L501.2300, L503.6550, L503.0106 #### [facility] [address] [place], [address] Magnesium measurement (mass/ volume)Ordered By: Donald Park on 03-29-2025 Magnesium (Unsp spec) [Mass/Vol] 2.1 mg/dL 1.5-2.2 [facility] Mean corpuscular hemoglobin (MCH) determinationOrdered By: Donald Park on 03-29-2025 MCH (RBC) [Entitic mass] 30.0 pg 27.0-32.0 [facility] Mean corpuscular hemoglobin concentration (MCHC) determinationOrdered By: Donald Park on 03-29-2025 MCHC (RBC) [Mass/Vol] 31.5 g/dL Low 32-36 [facility] Mean platelet volume determi nationOrdered By: Donald Park on 03-29-2025 Platelet mean volume (Bld) [Entitic vol] 8.7 fL 6.2-12.0 [facility] Monocyte percentageOrdered B y: Donald Park on 03-29-2025 Monocytes/100 WBC (Bld) 4.5 % 0-10 [facility] Neutrophil percentageOrdered By: Donald Park on 03-29-2025 Neutrophils/100 WBC (Bld) 84.2 % High 47-70 [facility] No Panel InformationOrdered By: Donald Park on 03-29-2025 Unsaturated Iron Binding Capacity 133 ug/dL Low 228-428 [facility] Nucleated red blood cell per centageOrdered By: Donald Park on 03-29-2025 Nucleated RBC/100 WBC (Bld) [Ratio] 0 % 0-5 [facility] Phosphoruson 03-29-2025 Phosphate [Mass/Vol] 1.5 mg/dL Low 2.7-4.5 [facility] Comment on above: Performed By: #### L 504.2610, L501.5200, L503.6030, L100.0100, L500.4050, L501.2300, L503.6550, L503.0106 #### [facility] Laboratory [address] [place], [address] Platelet countOrdered By: Romelia Park on 03-29-2025 Platelets (Bld) [#/Vol] 395 10*3/uL 150-450 [facility] Potassium measurement (mass/ volume)Ordered By: Donald Park on 03-29-2025 Potassium (Unsp spec) [Mass/Vol] 3.5 mmol/L 3.3-5.1 [facility] RBC Auto (Bld) [#/Vol]Ordere d By: Donald Park on 03-29-2025 RBC (Bld) [#/Vol] 3.60 10*6/uL Low 4.2-5.4 [facility] Serum creatinine measurement (mass/volume)Ordered By: Donald Park on 03-29-2025 Creatinine [Mass/Vol] 0.39 mg/dL Low 0.70-1.20 [facility] Serum globulin measurementOr dered By: Donald Park on 03-29-2025 Globulin (S) [Mass/Vol] 2.9 g/dL 2.2-4.2 [facility] Serum glucose measurement (m ass/volume)Ordered By: Donald Park on 03-29-2025 Glucose [Mass/Vol] 90 mg/dL 70-99 [facility] Serum or plasma alanine brewer otransferase (ALT) measurementOrdered By: Donald Park on 03-29-2025 ALT [Catalytic activity/Vol] 15 U/L <35 [facility] Serum or plasma albumin meka urement (mass/volume)Ordered By: Donald Park on 03-29-2025 Albumin [Mass/Vol] 3.7 g/dL 3.4-4.8 [facility] Serum or plasma albumin/glob ulin mass ratioOrdered By: Donald Park on 03-29-2025 Albumin/Globulin [Mass ratio] 1.3 {ratio} 0.9-2.4 [facility] Serum or plasma alkaline anurag sphatase measurementOrdered By: Donald Park on 03-29-2025 ALP [Catalytic activity/Vol] 129 U/L High 35-104 [facility] Serum or plasma calcium meka urement (mass/volume)Ordered By: Donald Park on 03-29-2025 Calcium [Mass/Vol] 9.4 mg/dL 7.6-11.0 [facility] Serum or plasma ferritin ratna surement (mass/volume)Ordered By: Donald Park on 03-29-2025 Ferritin [Mass/Vol] 949 ng/mL High 22-378 [facility] Serum or plasma iron saturat ion measurement (mass fraction)Ordered By: Donald Park on 03-29-2025 Iron saturation [Mass fraction] 35.1 % 13-59 [facility] Comment on above: Previous reported re sult: 35.2 %Edited by: BONILLA on 03/29/25:1334 Serum or plasma urea nitroge n measurement (mass/volume)Ordered By: Donald Park on 03-29-2025 Urea nitrogen [Mass/Vol] 24 mg/dL High 4-19 [facility] Sodium levelOrdered By: Tate Park on 03-29-2025 Sodium [Moles/Vol] 142 mmol/L 133-145 [facility] Total proteinOrdered By: Yariel Park on 03-29-2025 Protein [Mass/Vol] 6.6 g/dL 5.9-8.4 [facility] Vitamin B12on 03-29-2025 Cobalamin (Vitamin B12) [Mass/Vol] 594 pg/mL Normal 180-914 [facility] Comment on above: Performed By: #### L 504.2610, L501.5200, L503.6030, L100.0100, L500.4050, L501.2300, L503.6550, L503.0106 #### [facility] [address] [place], [address] Vitamin B12 ser/plasOrdered By: Donald Park on 03-29-2025 Cobalamin (Vitamin B12) [Mass/Vol] 594 pg/mL 180-914 [facility] White blood cell (WBC) count Ordered By: Donald Park on 03-29-2025 WBC (Bld) [#/Vol] 13.7 10*3/uL High 4.4-11.0 [facility] Gastroenterology Visit Repor ton 03-02-2025 Gastroenterology Visit Report [facility] [address] [place] [address] OFFICE VISIT Date of Service: 03/02/25 MR#: [id number] Acct: [id number] Name: ASHLEE MILLER Rep #: [id number] : 1950 Provider: LILLI Romero Age/Sex: 74/F Location: [facility] [place] Status: Signed Intake Vital Signs 02/03/25 14:05 02/17/25 08:11 Height 5 ft 4 in 5 ft 4 in Weight: 70 lb BMI 12.0 Blood Pressure Location Lt brachial Position Sitting Respiration 18 Pulse 101 H Pulse Source Monitor Temp 97.1 F L Pulse Oximetry (%) 99 Oxygen Delivery Method nasal canula Oxygen Flow Rate (L/min) 3 Intake Visit Reasons: PRE COLONOSCOPY Chief Complaint: Anemia Allergies No Known Allergies Allergy (Verified 02/17/25 13:13) Medications ???Medication ???Instructions ???Recorded ???Confirmed ???Type methocarbamol 500 mg tablet 500 mg PO 4X/DAY PRN PRN Muscle 03/02/25 Rx pain/spasm #40 tabs guaifenesin 1,200 mg tablet, 1,200 mg PO Q12H #60 tabs 10/07/23 03/02/25 Rx extended release 12 hr lorazepam 0.5 mg tablet 0.5 mg PO Q6H PRN dyspnea 10/07/23 03/02/25 History oxybutynin chloride 5 mg 5 mg PO DAILY 10/07/23 03/02/25 Hi story tablet,extended release 24 hr albuterol sulfate 2.5 mg/3 mL 2.5 mg (3 mL) inhalation Q4H PRN 0 02/26/24 03/02/25 Rx (0.083 %) solution for nebulization Sob /Or Wheezing #180 mL voriconazole 50 mg tablet 150 mg PO BID 08/10/24 03/02/25 Hi story albuterol sulfate 90 mcg/actuation 2 puff inhalation Q4H PRN 03/02/25 Rx aerosol inhaler (Ventolin HFA) shortness of breath or wheezing #18 grams prednisone 10 mg tablet 10 mg PO QDAY #90 tabs 11/01/24 Rx azithromycin 250 mg tablet 250 mg PO QMWF #12 tabs 01/24/25 0 03/02/25 Rx ipratropium bromide 0.02 % 1.25 ml inhalation Q6-8H PRN 01/2403/02/25 Rx solution for inhalation shortness of breath or wheezing #150 mL budesonide 160 mcg-glycopyr 9 2 inh inhalation BID #10.7 grams 0 02/07/25 03/02/25 Rx mcg-formot 4.8 mcg/actuation HFA inhaler (Breztri Aerosphere) roflumilast 250 mcg tablet 500 mcg (2 x 250 mcg) PO QDAY #60 02/17/25 03/02/25 Rx (Daliresp) tabs pantoprazole 40 mg tablet,delayed 40 mg PO QDAY #30 tabs 03/02/25 0 03/02/25 Rx release Have you fallen in the past year?: No PFSH Medical History Pleurisy Collapsed lung VATS bullectomy/doxy peurodesis (left) Port placement Osteoporosis COPD (chronic obstructive pulmonary disease) Cataract Visual disturbances, right eye Surgical History History of exploratory laparotomy History of bilateral mastectomy History of breast biopsy History of cataract extraction Family History Mother Hypoglycemia Neuropathy Thyroid disorder Hypertension Heart disease Diverticulitis Father COPD (chronic obstructive pulmonary disease) Social History Smoking Status: Current every day smoker tobacco type: cigarettes alcohol intake: never substance use type: does not use HPI HPI Chief Complaint: Anemia Details: ASHLEE MILLER, is a 74 F who presents to the office today for establishment. Patient with a past medical history pertinent for breast cancer, aspergillosis, tobacco use, COPD, JASIEL and severe protein energy malnutrition. Patient here today after referral from hematology/onc ology for a positive fecal occult stool test. Patient also with anemia over the past year. She has had 1 iron transfusion. Patient denies seeing any blood in her stool or black or tarry stools. She has normal brown formed bowel movements. Patient does still smoke 4 to 8 cigarettes/day. She is currently on 3-5 L of oxygen when not at home and has a concentrator at home. Last colonoscopy was over 10 years ago. ROS Const Constitutional: Positive for fatigue and weight change (weight loss); No fever(s) ENT ENT: No difficulty swallowing Gastro GI: Positive for Blood in stool; No abdominal pain, belching, bloating, change in bowel habits, change in stool character, coffee ground emesis, constipation, cramping, diarrhea, heartburn, difficulty swallowing, feeling full early, excessive flatus, incontinent of stools, Vomiting blood/hematemesis, loose stools, Black,tarry stools, nausea/dyspepsia, pain with swallowing, vomiting or other Musc Musculoskeletal: Positive for abnormal gait, back pain and restless legs; No joint pain Skin Skin: No yellowing of the eye or itchy eyes Neuro Neurology: Positive for abnormal gait and restless legs Psych Psychiatric: Positive for anxiety and No depression Endo Endocrine: Positive for fatigue an (more content not included)... Normal [facility] [id number] 02-25-2025 [facility]. COMMENT Normal . [facility] Comment on above: Order Comment: [id number] 3VORICONAZOLE RED SERUM RF Result Comment: Test Ordered: [id number] Voriconazole, Serum/Plasma Voriconazole, Serum/Plasma <0.3 ug/mL BN Reference Range: . Verified by repeat analysis The median values for the mean and maxiumum Voriconazole plasma concentrations in individual patients were 2.51 ug/mL (inter-quartile range 1.21 - 4.44 ug/mL) and 3.79 ug/mL (inter-quartile range 2.06 -6.31 ug/mL), respectively. A trough serum concentration greater than 0.5 to 2.0 ug/mL is recommended for treatment of fungal infection, while a trough concentration greater than 0.5 ug/mL is recommended for prophylaxis. Reversible neurotoxicity has been reported in patients with Voriconazole trough concentrations above 5.5 ug/mL. This test was developed and its performance characteristics determined by [facility]. It has not been cleared or approved by the Food and Drug Administration. The FDA has determined that such clearance or approval is not necessary. Performed at: [address] [id number] [employer] Operator: Summer Sims MD, Phone: [phone] Performed at: [address] [id number] [employer] Operator: Dakota Denise PhD, Phone: [phone] Performed By: #### L 100.0100, L500.4050 #### [facility] [address] [place], [address] Anion gap in Serum or Plasma Ordered By: Sourav Finn on 02-17-2025 Anion gap [Moles/Vol] 10 mmol/L 5-15 [facility] BUN/creatinine ratioOrdered By: Sourav Finn on 02-17-2025 Urea nitrogen/Creatinine [Mass ratio] 35.3 mg/mg High 10-20 [facility] Basic Metabolic Profile (BMP )on 02-17-2025 BUN/CRE 35.3 RATIO High -20 [facility] Comment on above: Performed By: #### L 100.0100, L500.4050 #### [facility] [address] [place], [address] Calcium [Mass/Vol] 9.0 mg/dL Normal 7.6-11.0 [facility] Comment on above: Performed By: #### L 100.0100, L500.4050 #### [facility] [address] [place], [address] Chloride [Moles/Vol] 107 mmol/L Normal 98-108 [facility] Comment on above: Performed By: #### L 100.0100, L500.4050 #### [facility] [address] [place], [address] CO2 [Moles/Vol] 25.4 mmol/L Normal 21.0-32.0 [facility] Comment on above: Performed By: #### L 100.0100, L500.4050 #### [facility] [address] [place], [address] Creatinine [Mass/Vol] 0.45 mg/dL Low 0.70-1.20 [facility] Comment on above: Performed By: #### L 100.0100, L500.4050 #### [facility] [address] [place], [address] GAP 10 Normal 5-15 [facility] Comment on above: Performed By: #### L 100.0100, L500.4050 #### [facility] [address] [place], [address] GFR/1.73 sq M.predicted among non-blacks MDRD (S/P/Bld) [Vol rate/Area] 102 mL/min/{1.73_m2} Normal >60 [facility] Comment on above: Result Comment: mL/m in/1.73m2 CKD-EPI Creatinine Equation (2020) Performed By: #### L 100.0100, L500.4050 #### [facility] [address] [place], [address] Glucose [Mass/Vol] 62 mg/dL Low 70-99 [facility] Comment on above: Performed By: #### L 100.0100, L500.4050 #### [facility] [address] [place], [address] Potassium [Moles/Vol] 3.4 mmol/L Normal 3.3-5.1 [facility] Comment on above: Performed By: #### L 100.0100, L500.4050 #### [facility] [address] [place], [address] Sodium [Moles/Vol] 143 mmol/L Normal 133-145 [facility] Comment on above: Performed By: #### L 100.0100, L500.4050 #### [facility] [address] [place], [address] Urea nitrogen [Mass/Vol] 16 mg/dL Normal 4-19 [facility] Comment on above: Performed By: #### L 100.0100, L500.4050 #### [facility] [address] [place], [address] Bilirubin directOrdered By: Sourav Finn on 02-17-2025 Bilirubin.direct [Mass/Vol] mg/dL 0.00-0.30 [facility] Bilirubin, totalOrdered By: Sourav Finn on 02-17-2025 Bilirubin [Mass/Vol] mg/dL 0.00-1.30 [facility] CBC-Complete Blood Cnt No Di ffon 02-17-2025 Erythrocyte distribution width (RBC) [Ratio] 18.3 % High 11.6-14.6 [facility] Comment on above: Performed By: #### L 100.0100, L500.4050 #### [facility] [address] [place], [address] Hematocrit (Bld) [Volume fraction] 37.4 % Normal 37-47 [facility] Comment on above: Performed By: #### L 100.0100, L500.4050 #### [facility] [address] [place], [address] Hemoglobin (Bld) [Mass/Vol] 11.7 g/dL Low 12.0-15.0 [facility] Comment on above: Performed By: #### L 100.0100, L500.4050 #### [facility] [address] [place], [address] MCH (RBC) [Entitic mass] 28.7 pg Normal 27.0-32.0 [facility] Comment on above: Performed By: #### L 100.0100, L500.4050 #### [facility] [address] [place], [address] MCHC (RBC) [Mass/Vol] 31.3 g/dL Low 32-36 [facility] Comment on above: Performed By: #### L 100.0100, L500.4050 #### [facility] [address] [place], [address] MCV (RBC) [Entitic vol] 91.7 fL Normal 81-99 [facility] Comment on above: Performed By: #### L 100.0100, L500.4050 #### [facility] [address] [place], [address] Platelet mean volume (Bld) [Entitic vol] 8.5 fL Normal 6.2-12.0 [facility] Comment on above: Performed By: #### L 100.0100, L500.4050 #### [facility] [address] [place], [address] Platelets (Bld) [#/Vol] 424 10*3/uL Normal 150-450 [facility] Comment on above: Performed By: #### L 100.0100, L500.4050 #### [facility] [address] [place], [address] RBC (Bld) [#/Vol] 4.08 10*6/uL Low 4.2-5.4 [facility] Comment on above: Performed By: #### L 100.0100, L500.4050 #### [facility] [address] [place], [address] RDW SD 61.0 fl High 35.1-43.9 [facility] Comment on above: Performed By: #### L 100.0100, L500.4050 #### [facility] [address] [place], [address] WBC (Bld) [#/Vol] 11.4 10*3/uL High 4.4-11.0 [facility] Comment on above: Performed By: #### L 100.0100, L500.4050 #### [facility] [address] [place], [address] Carbon dioxide, total [Moles /volume] in Central venous bloodOrdered By: Sourav Finn on 02-17-2025 CO2 [Moles/Vol] 25.4 mmol/L 21.0-32.0 [facility] Chloride assayOrdered By: Marylou Finn on 02-17-2025 Chloride [Moles/Vol] 107 mmol/L 98-108 [facility] Erythrocyte distribution wid th ratioOrdered By: Sourav Finn on 02-17-2025 Erythrocyte distribution width (RBC) [Ratio] 18.3 % High 11.6-14.6 [facility] Erythrocyte distribution wid th standard deviationOrdered By: Sourav Finn on 02-17-2025 Erythrocyte distribution width (RBC) [Ratio] 61.0 fl High 35.1-43.9 [facility] Glomerular filtration rate ( GFR) estimation/1.73 sq m using serum, plasma, or whole bOrdered By: Sourav Finn on 02-17-2025 GFR/1.73 sq M.predicted among non-blacks MDRD (S/P/Bld) [Vol rate/Area] 102 mL/min/{1.73_m2} >60 [facility] Comment on above: mL/min/1.73m2 CKD-EP I Creatinine Equation (2020) Hematocrit Auto (Bld) [Volum e fraction]Ordered By: Sourav Finn on 02-17-2025 Hematocrit (Bld) [Volume fraction] 37.4 % 37-47 [facility] Hemoglobin measurementOrdere d By: Sourav Finn on 02-17-2025 Hemoglobin (Bld) [Mass/Vol] 11.7 g/dL Low 12.0-15.0 [facility] Laboratory - Chemistry and C hemistry - challengeOrdered By: Sourav Finn on 02-17-2025 AST [Catalytic activity/Vol] 19 U/L <32 [facility] Liver Profileon 02-17-2025 Albumin [Mass/Vol] 3.5 g/dL Normal 3.4-4.8 [facility] Comment on above: Performed By: #### L 100.0100, L500.4050 #### [facility] [address] [place], [address] ALK PHOS 98 U/L Normal 35-104 [facility] Comment on above: Performed By: #### L 100.0100, L500.4050 #### [facility] [address] [place], [address] ALT [Catalytic activity/Vol] 10 U/L Normal <=34 [facility] Comment on above: Performed By: #### L 100.0100, L500.4050 #### [facility] [address] [place], [address] AST [Catalytic activity/Vol] 19 U/L Normal <=31 [facility] Comment on above: Performed By: #### L 100.0100, L500.4050 #### [facility] [address] [place], [address] D BILI < 0.08 Normal 0.00-0.30 [facility] Comment on above: Performed By: #### L 100.0100, L500.4050 #### [facility] [address] [place], [address] Globulin (S) [Mass/Vol] 3.2 g/dL Normal 2.2-4.2 [facility] Comment on above: Performed By: #### L 100.0100, L500.4050 #### [facility] [address] [place], [address] T BILI < 0.15 Normal 0.00-1.30 [facility] Comment on above: Performed By: #### L 100.0100, L500.4050 #### [facility] [address] [place], [address] T PROT 6.8 g/dL Normal 5.9-8.4 [facility] Comment on above: Performed By: #### L 100.0100, L500.4050 #### [facility] [address] [place], [address] MCV (mean corpuscular volume ) determinationOrdered By: Sourav Finn on 02-17-2025 MCV (RBC) [Entitic vol] 91.7 fL 81-99 [facility] Mean corpuscular hemoglobin (MCH) determinationOrdered By: Sourav Finn on 02-17-2025 MCH (RBC) [Entitic mass] 28.7 pg 27.0-32.0 [facility] Mean corpuscular hemoglobin concentration (MCHC) determinationOrdered By: Sourav Finn on 02-17-2025 MCHC (RBC) [Mass/Vol] 31.3 g/dL Low 32-36 [facility] Mean platelet volume determi nationOrdered By: Sourav Finn on 02-17-2025 Platelet mean volume (Bld) [Entitic vol] 8.5 fL 6.2-12.0 [facility] Platelet countOrdered By: Marylou Finn on 02-17-2025 Platelets (Bld) [#/Vol] 424 10*3/uL 150-450 [facility] Potassium measurement (mass/ volume)Ordered By: Sourav Finn on 02-17-2025 Potassium (Unsp spec) [Mass/Vol] 3.4 mmol/L 3.3-5.1 [facility] Pulmonary Visit Reporton Pulmonary Visit Report [facility] [address] [place] [address] OFFICE VISIT Date of Service: 02/17/25 MR#: [id number] Acct: [id number] Name: ASHLEE MILLER Rep #: [id number] : 1950 Provider: Kaylie Ames NP Age/Sex: 74/F Location[place] [facility] [place] Status: Signed with Addenda ADDENDUM by Mayela Phan on 02/17/25 at 1437 Office Procedure Documentation entered by Mayela Phan 02/17/25 14:37: Walking Oximetry Walking Oximetry Procedure performed by: Mayela Phan Walking Oximetry: Yes walking oximetry preformed, desaturation below 89% occured, oxygen applied, no signs of distress prior to departing office and supplemental oxygen order generated Oxygen Delivery Method: Yes Resting O2/Oxygen Delivery Method /pulse (95 % ra p-108), Min 1 O2/ Oxygen Delivery Method/ pulse (92% ra p-96), Min 2 O2/ Oxygen Delivery Method/ pulse (86%ra p-126 O2 applied at @2.5L ), Min 3 O2/ Oxygen Delivery Method/ pulse (resting 86% with 2.5L p-106 up to 97% 2.5L ), Min 4 O2/ Oxygen Delivery Method/ pulse (resting 99% with 2.5L p-128), Min 5 O2/Oxygen Delivery Method/ pulse (97% @2.5L p-108) and Min 6 O2/ Oxygen Delivery Method/pulse (resting ) Date cc: * Signed Assessment and Plan Assessment and Plan (1) Lung nodule: Status: Acute Comment: 2.2 x 2.4 cm right apical left lower lobe Plan: PET positive lesion identified with a negative quantiferon gold but a positive aspergillosis antibody and possible fungus noted on sputum sample. 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 Chest CT shows stability. The previous PET scan was likely positive due to the aspergillosis that has been identified. Given patient's history of breast malignancy and continued smoking close monitoring is warranted. This has been monitored every 3 months for the last 6 months and now will be monitored in a 6-month interval. Chest CT scan ordered accordingly today. 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 I have recommended that she utilize palliative care at this time. I have increased the dose of Daliresp to the 500 mcg dosing. Continue current maintenance medication, on triple therapy with use of Breztri. Continue prophylactic azithromycin Thursday, Thursday and Thursday weekly. Continue on prednisone 10 mg daily. Use albuterol HFA as needed every 4 hours. Use albuterol ipratropium solution nebulized every 4 hours. The patient understands that she is not to use albuterol HFA and albuterol solution via nebulizer in the same 4-hour period. Contact the office for any new or worsening symptoms. Recently, prednisone bursts have not been beneficial to this patient. (3) Respiratory failure with hypoxia: Status: Chronic Qualifiers: Chronicity: chronic Qualified Code(s): J96.11 - Chronic respiratory failure with hypoxia Plan: The patient is using and benefiting from oxygen. Her home concentrator is broken and needs replaced. She needs a POC and home concentrator. Repeat the 6-minute walk test in the office as the previous 6-minute walk test was incomplete due to her requirement of rest during the study. Continue to utilize to maintain a saturation of 89-92%. 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 Work on increasing daily caloric intake. Orders: Orders Walking Oximetry Today J44.9 - Chronic obstructive pulmonary disease, unspecified Chest without Contrast 08/05/25 R91.1 - Solitary pulmonary nodule Referrals Palliative Medicine J44.9 - Chronic obstructive pulmonary disease, unspecified Medications: Changed From roflumilast (Daliresp) 250 mcg PO QDAY 30 tabs 5RF To roflumilast (Daliresp) 500 mcg (2 x 250 mcg) PO QDAY 60 tabs 5RF Plan Details Follow Up: 3 to 4 months (LMR) HPI HPI Comments Details: This 74 year old patient presents to the office today for follow-up of her stage IV very severe COPD with chronic hypoxic respiratory failure. She is in a wheeled chair and currently on supplemental oxygen. She does not believe that she has received antibiotics or prednisone for any breathing problems since last follow up. Her current oxygen concentrator is not functioning properly. She continues to have shortness of breath. She has a cough with productive sputum. She reports a copious amount of sputum is present. She does have wheeze present along with chest tightness. She recently saw MAGI Anaya and completed lab work for him. She reports that she is using voriconazole daily. She denies fever, chills, body aches. The patient reports that she has been compliant (more content not included)... Normal [facility] RBC Auto (Bld) [#/Vol]Ordere d By: Sourav Finn on 02-17-2025 RBC (Bld) [#/Vol] 4.08 10*6/uL Low 4.2-5.4 [facility] Serum creatinine measurement (mass/volume)Ordered By: Sourav Finn on 02-17-2025 Creatinine [Mass/Vol] 0.45 mg/dL Low 0.70-1.20 [facility] Serum globulin measurementOr dered By: Sourav Finn on 02-17-2025 Globulin (S) [Mass/Vol] 3.2 g/dL 2.2-4.2 [facility] Serum glucose measurement (m ass/volume)Ordered By: Sourav Finn on 02-17-2025 Glucose [Mass/Vol] 62 mg/dL Low 70-99 [facility] Serum or plasma alanine brewer otransferase (ALT) measurementOrdered By: Sourav Finn on 02-17-2025 ALT [Catalytic activity/Vol] 10 U/L <35 [facility] Serum or plasma albumin meka urement (mass/volume)Ordered By: Sourav Finn on 02-17-2025 Albumin [Mass/Vol] 3.5 g/dL 3.4-4.8 [facility] Serum or plasma alkaline anurag sphatase measurementOrdered By: Sourav Finn on 02-17-2025 ALP [Catalytic activity/Vol] 98 U/L 35-104 [facility] Serum or plasma calcium meka urement (mass/volume)Ordered By: Sourav Finn on 02-17-2025 Calcium [Mass/Vol] 9.0 mg/dL 7.6-11.0 [facility] Serum or plasma urea nitroge n measurement (mass/volume)Ordered By: Sourav Finn on 02-17-2025 Urea nitrogen [Mass/Vol] 16 mg/dL 4-19 [facility] Sodium levelOrdered By: Marcus Finn on 02-17-2025 Sodium [Moles/Vol] 143 mmol/L 133-145 [facility] Total proteinOrdered By: Robert Finn on 02-17-2025 Protein [Mass/Vol] 6.8 g/dL 5.9-8.4 [facility] White blood cell (WBC) count Ordered By: Sourav Finn on 02-17-2025 WBC (Bld) [#/Vol] 11.4 10*3/uL High 4.4-11.0 [facility] 6 Minute Walk Teston 025 6 Minute Walk Test y [facility] Pulmonary Services/Neurology [address] [place] [address] MR#: [id number] Acct: [id number] Name: ASHLEE MILLER Rep #: [id number] : 1950 74 From: Phuc Vega DO Referring Dr: Kaylie Ames EL TEACHER-C Status: DEP CLI Location: PSN Date: Sex: F C PSN 6 Minute Walk Test 6 Minute Walk Test 6 Minute Walk Test: 6 Minute Walk Test PSN:6-Minute Walk Test Start: 02/03/25 13:27 Freq: Status: Discharge Protocol: [id number] Document 02/03/25 14:05 [facility] (Rec: 02/03/25 14:24 [facility] [id number]) 6 Minute Walk Test Date Performed 02/03/25 Time Performed 12:30 Height 5 ft 4 in Weight: 70 lb Weight in Pounds 70.[address]: Kaylie Ames Assistive device Walker used: Pre-test Oxygen Delivery Room Air Method Pulse Ox (%) 95 Pulse Rate (60-100 115 H beats/min) Dyspnea Nilda Scale ( 4 0-10) Exertion Nilda Scale 9 (6-20) Reported Symptoms Increased Work of Breathing 1st minute Oxygen Delivery Room Air Method Pulse Ox (%) 92 Pulse Rate (60-100 114 H beats/min) Dyspnea Nilda Scale ( 5 0-10) Number of Rests 0 Taken Reported Symptoms Increased Work of Breathing 2nd minute Oxygen Delivery Room Air Method Pulse Ox (%) 91 Pulse Rate (60-100 120 H beats/min) Dyspnea Nilda Scale ( 6 0-10) Exertion Nilda Scale 15 (6-20) Number of Rests 1 Taken Reported Symptoms Increased Work of Breathing 3rd minute Oxygen Delivery Room Air Method Pulse Ox (%) 92 Pulse Rate (60-100 118 H beats/min) Dyspnea Nilda Scale ( 6 0-10) Number of Rests 1 Taken Reported Symptoms Increased Work of Breathing 4th minute Oxygen Delivery Room Air Method Pulse Ox (%) 92 Pulse Rate (60-100 122 H beats/min) Dyspnea Nilda Scale ( 7 0-10) Number of Rests 0 Taken Reported Symptoms Increased Work of Breathing 5th minute Oxygen Delivery Room Air Method Pulse Ox (%) 90 Pulse Rate (60-100 126 H beats/min) Dyspnea Nilda Scale ( 7 0-10) Number of Rests 0 Taken Reported Symptoms Increased Work of Breathing 6th minute Oxygen Delivery Room Air Method Pulse Ox (%) 87 Pulse Rate (60-100 129 H beats/min) Dyspnea Nilda Scale ( 8 0-10) Exertion Nilda Scale 15 (6-20) Reported Symptoms Increased Work of Breathing Post-test Oxygen Flow Rate (L/ 2 min) (L/min) Oxygen Delivery Nasal Cannula Method Pulse Ox (%) 98 Pulse Rate (60-100 116 H beats/min) Dyspnea Nilda Scale ( 5 0-10) Exertion Nilda Scale 10 (6-20) Reported Symptoms Increased Work of Breathing Full Laps Walked 6 Partial Lap, Number 47 of Tiles Walked Total Distance 401 Walked (ft) 02/03/25 14:11 Cardiopulmonary Services by ToddYadira PATIENT ARRIVED FOR TESTING IN A WHEELCHAIR AND WITH OWN POC DEVICE. PLACED ON ROOM AIR FOR 10 MINUTES AND FINGERS WARMED PRIOR TO BEGINNING WALK TEST. SPO2 AT BEGINNING OF TESTING ON ROOM AIR WAS 95%. PATIENT HAD INCREASED WOB WHICH SHE SAID IS HER NORMAL STATE. SHE PUSHED THE W/C FOR STABILITY DURING TESTING. AT 2 MINUTES, SHE SAT TO REST D/T INCREASED WOB FROM BASELINE, SHE WANTED TO PUT O2 ON, I ENCOURAGED HER TO LEAVE IT OFF HER SPO2 WAS STILL AT 92% ROOM AIR. (SHE QUESTIONED WHETHER THE PULSE OX READINGS WERE CORRECT BECAUSE SHE WAS SOB, I ASSURED HER THEY WERE ACCURATE AND EXPLAINED THAT INCREASED WOB ISN'T ALWAYS CAUSED BY, OR FIXED BY, OXYGEN) SHE AGREED TO LEAVE OXYGEN OFF AND DECIDED TO WALK AGAIN TO ATTAIN MORE DATA. SHE RESTED UNTIL 3:45 AT WHICH TIME SHE DECIDED TO WALK AGAIN. HER SPO2 ON ROOM AIR MAINTAINED ABOVE 88% UNTIL JUST AT THE 6TH MINUTE OF EXERCISE AT WHICH POINT SHE DROPPED TO 87% WITH GOOD SIGNAL. TESTING WAS OVER AT THAT POINT THEREFORE NO AMBULATION WAS DONE WITH OXYGEN. SHE PUT HER OWN POC DEVICE BACK ON AT PULSE DOSE OF 2 WITH SPO2 RISING TO 98%. Initialized on 02/03/25 14:11 - END OF NOTE Interpretation Interpretation: The patient ambulated 401 feet over the course of 6 minutes beginning on room air with the use of a push to wheelchair. Pretesting oxygen saturation was noted to be 95% on room air. The patient rested from minute 2 of testing through minute 3 minutes and 45 seconds. While the patient did ultimately experience a decline in SpO2 to 87% at minute 6 of testing, the walk test was completed at that point. Therefore, no titration of supplemental oxygen was undertaken. Recommendations Recommendations: Recommend repeat 6-minute walk test to truly reassess the patient's ongoing supplemental oxygen needs. 02/09/25 1306 Date Phuc Vega DO CC: Date Dictated: 02/09/25 1304 Date Transcribed: 02/09/25 130 Vacuum Metalizing Supervisor: Dr. Phuc Vega DO Signed Normal [facility] Chest without Contraston Chest without Contrast [facility] Imaging Services [address] [place] [id number] Chest without Contrast MR#: [id number] Acct: [id number] Name: ASHLEE MILLER Rep #: [id number] : 1950 F 74 From: Calin dudley MD PCP: LARRY Garcia Status: REG CLI Study: Chest without Contrast Date of Exam: 01/30/25 Exam# [id number] Ordering Dr: Kaylie Ames EL TEACHER- C PROCEDURE: CHEST WITHOUT CONTRAST 01/30/2025 REASON FOR EXAM: PERSISTENT 2.2 X 2.3CM DENSITY IN LLL History of breast carcinoma with bilateral mastectomy. Smoker. TECHNIQUE: Chest CT without contrast. Coronal and Sagittal reconstruction series were provided. One or more dose reduction techniques were used (e.g., Automated exposure control, adjustment of the mA and/or kV according to patient size, use of iterative reconstruction technique RADIATION DOSE SUMMARY: CTDlvol: 6.34 mGy DLP: 263.12 mGycm COMPARISON: Prior study dated October 28, 2024. FINDINGS: Hardware: None Lymph nodes: No mediastinal lymph nodes are seen. Heart and Vasculature: The heart is nonenlarged. Atherosclerotic calcifications of the thoracic aorta. Thoracic aorta and pulmonary arteries have normal contours; noncontrast technique limits evaluation. Coronary Artery Calcifications: Present Lungs and Airways: Advanced emphysematous changes are present. Persistent heterogeneous infiltrate in the left lower lobe with areas of cystic changes. Stable 2.5 cm bulla in the anterior superior aspect of the heterogeneous infiltrate. Persistent 2.2 cm 2.3 cm rounded soft tissue density in the medial superior segment of the left lower lobe. Pleura: No pleural effusion. Upper Abdomen: Unremarkable Bones: Degenerative changes of the thoracic spine. Loss of height of a mid dorsal vertebrae. CT/Chest without Contrast IMPRESSION: Coronary artery calcification (CAC) is is present Stable examination. Reading Location: [place] [address] CC: LARRY Suarez; Kaylie Ames NP Vacuum Metalizing Supervisor: Signed Normal [facility] Pulmonary Visit Reporton Pulmonary Visit Report [facility] [place] [address] [place] [address]. [address] [place] [address] OFFICE VISIT Date of Service: 01/24/25 MR#: [id number] Acct: [id number] Name: ASHLEE MILLER Rep #: [id number] : 1950 Provider: Kaylie Ames NP Age/Sex: 74/F Location: [facility] [place] Status: Signed Assessment and Plan Assessment and Plan (1) Lung nodule: Status: Acute Comment: 2.2 x 2.4 cm right apical left lower lobe Plan: PET positive lesion identified with a negative quantiferon gold but a positive aspergillosis antibody and possible fungus noted on sputum sample. The patient is undergoing treatment from [place] for aspergilloma with voriconazole. Chest CT is upcoming in January 2025. The previous PET scan was likely positive due to the aspergillosis that has been identified. Given patient's history of breast malignancy and continued smoking close monitoring is warranted. 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: Status: Chronic Comment: FEV1 35%, Alpha-1 normal Plan: End-stage. Continue current maintenance medication, on triple therapy with use of Breztri. Continue prophylactic azithromycin Thursday, Thursday and Thursday weekly, resubmitted. Continue with use of Daliresp, patient is unsure if she is using this medication. She will call this practice to give an update on dosing. I will consider increasing to 500mcg dosing on follow up. Continue on prednisone 10 mg daily. The patient has declined palliative referral in the past on 2 separate occasions. Use albuterol as needed every 4 hours. I added ipratropium solution to be nebulized as well on an as needed basis. Contact the office for any new or worsening symptoms. Recently, prednisone burst have not been beneficial to this patient. (3) Respiratory failure with hypoxia: Status: Chronic Qualifiers: Chronicity: chronic Qualified Code(s): J96.11 - Chronic respiratory failure with hypoxia Plan: The patient is using and benefiting from oxygen. Today she is using 3l/min pulse dosing by portable concentrator and this is maintaining her saturation. Her home concentrator is broken and needs replaced. She needs a POC that will go at least 3L pulse. She will complete PFT and 6MWT to quantify further. Continue to utilize to maintain a saturation of 89-92%. 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 Work on increasing daily caloric intake. Orders: Orders PFT Complete - DLCO, Spirometry b/a bronchodilators, lung volumes 01/30/25 J44.9 - Chronic obstructive pulmonary disease, unspecified Simple Pulmonary Exercise Test 02/03/25 J44.9 - Chronic obstructive pulmonary disease, unspecified Medications: New ipratropium bromide 1.25 mL inhalation Q6-8H PRN 150 mL 11RF shortness of breath or wheezing Refilled azithromycin 250 mg PO QMWF 12 tabs 11RF F17.210 - Nicotine dependence, cigarettes, uncomplicated Plan Details Follow Up: as scheduled (LMR) HPI HPI Comments Details: This 74 year old patient presents to the office today for follow-up of her stage IV very severe COPD with chronic hypoxic respiratory failure. She is ambulatory and currently on supplemental oxygen. She does not believe that she has received antibiotics or prednisone for any breathing problems since last follow up. She is here today for a new oxygen concentrator. Her home concentrator is broken. She would also like to have a new POC as the one she is using is one she has purchased and she is concerned that it may stop functioning. She has not been breathing well since her machine has broken. She has noticed an increase in shortness of breath because her concentrator is not producing the correct oxygen support. She continues with a cough and yellow sputum. She have continued to follow with ID and is using voriconazole daily. She does notice a wheeze present, denies chest pain and chest tightness. She denies fever, chills, body aches. The patient reports that she has been compliant with supplemental oxygen. She typically uses 5 L/min. She states that sometimes the portable oxygen concentrator does not go high enough when she becomes exerted. She is basing this off of the degree of shortness of breath she experiences on exertion. She will typically use 3 L at home. She is compliant Breztri 2 puffs twice daily. She does report rinsing her mouth out after each use. She denies any medication side effect such as sore throat or thrush. She is compliant with Mucinex daily with water. She is using azithromycin 250 mg Thursday, Thursday and Thursday weekly. She is using prednisone 10 mg daily. Albuterol HFA 2-3 times per day and Albuterol nebulized 2-3 times per day. She is currently smoking 1 pack over 2 to 3 days. LDCT from July 01, 2024 shows a new moderate left pleural parenchymal cavitary opacity ex (more content not included)... Normal [facility] Oncology Visit Reporton 12-21 Oncology Visit Report [facility] [address] [place] [address] OFFICE VISIT Date of Service: 01/11/25 1556 MR#: [id number] Acct: [id number] Name: ASHLEE MILLER Rep #: [id number] : 1950 From: Donald Park MD Age/Sex: 74/F Location: [facility] [place] Status: Signed HPI Subjective Date of Service 01/11/25 Chief Complaint F/u for R breast cancer. History of Present Illness 74 y.o.woman presented with abnormal mammogram, she had stereotactic breast biopsy on November 26, 2016 which showed invasive ductal carcinoma with atypical features, nuclear grade 2, ER/KY negative, HER- 2 was 1-2+ by IHC, FISH negative. 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 Pathology showed Invasive ductal carcinoma, tumor size 8mm, sentinel node 1/1 negative, pT1b, pN0 M0, Stage IA disease. Received adjuvant chemotherapy with Taxotere/Cytoxan from 02/12/17 to 04/23/2017. Developed post menopausal bleeding 02/26/17 and subsequently underwent transvaginal US 03/13/[address] Treadwell which demonstrated possible 3mm endometrial polyp, fluid filled endometrial cavity, uterine fibroid and 2.7 complex left ovarian cyst. Endometrial curettage on 06/12/2017 showed atrophic endometrium. She remains on observation. She was found to have Iron deficiency anemia with Positive stool occult blood, comes in for follow up. Feels well, now on Home O2 by [facility] Medical History Pleurisy Collapsed lung VATS bullectomy/doxy peurodesis (left) Port placement Osteoporosis COPD (chronic obstructive pulmonary disease) Cataract Visual disturbances, right eye Surgical History History of exploratory laparotomy History of bilateral mastectomy History of breast biopsy History of cataract extraction Family History Mother Hypoglycemia Neuropathy Thyroid disorder Hypertension Heart disease Diverticulitis Father COPD (chronic obstructive pulmonary disease) Social History Smoking Status: Current every day smoker tobacco type: cigarettes alcohol intake: never substance use type: does not use Intake Vital Signs 12/28/24 11:33 01/11/25 15:57 Height 5 ft 3 in 5 ft 3 in Weight: 31.893 kg BMI 12.4 BP 114/64 Blood Pressure Location Lt brachial Position Sitting Respiration 18 Pulse 115 H Pulse Source Monitor Temp 98.7 F Temperature Source Temporal Artery Pulse Oximetry (%) 99 Oxygen Delivery Method nasal canula Oxygen Flow Rate (L/min) 3 Intake Accompanied by: Is patient in pain?: No Allergies No Known Allergies Allergy (Verified 01/11/25 15:59) Medications ???Medication ???Instructions ???Recorded ???Confirmed ???Type methocarbamol 500 mg tablet 500 mg PO 4X/DAY PRN PRN Muscle 01/11/25 Rx pain/spasm #40 tabs guaifenesin 1,200 mg tablet, 1,200 mg PO Q12H #60 tabs 10/07/23 01/11/25 Rx extended release 12 hr lorazepam 0.5 mg tablet 0.5 mg PO Q6H PRN dyspnea 10/07/23 01/11/25 History oxybutynin chloride 5 mg 5 mg PO DAILY 10/07/23 01/11/25 Hi story tablet,extended release 24 hr budesonide 160 mcg-glycopyr 9 2 inh inhalation BID #10.7 grams 0 12/25/23 01/11/25 Rx mcg-formot 4.8 mcg/actuation HFA inhaler (Breztri Aerosphere) azithromycin 250 mg tablet 250 mg PO QMWF #12 tabs 01/19/24 0 01/11/25 Rx albuterol sulfate 2.5 mg/3 mL 2.5 mg (3 mL) inhalation Q4H PRN 0 02/26/24 01/11/25 Rx (0.083 %) solution for nebulization Sob /Or Wheezing #180 mL roflumilast 250 mcg tablet 250 mcg PO QDAY #30 tabs 08/10/24 01/11/25 Rx (Daliresp) voriconazole 50 mg tablet 150 mg PO BID 08/10/24 01/11/25 Hi story albuterol sulfate 90 mcg/actuation 2 puff inhalation Q4H PRN 01/11/25 Rx aerosol inhaler (Ventolin HFA) shortness of breath or wheezing #18 grams prednisone 10 mg tablet 10 mg PO QDAY #90 tabs 11/01/24 Rx amoxicillin 875 mg-potassium 1 tab PO Q12H #28 tabs 12/13/24 Rx clavulanate 125 mg tablet Have you fallen in the past year?: Yes Central Venous Access Central Venous Access: No Microbiology 01/02/25 09:55 Stool Stool Occult Blood (LYNDSEY) - Final Occult Blood Positive Laboratory Tests 02/04/19 01/04/24 12/28/24 10:05 10:25 10:43 WBC 7.4 10.2 RBC 4.70 Hgb 14.2 12.0 Hct 43.3 38.9 32.1 L Plt Count 284 306 Sodium 138 Potassium 3.9 Chloride 105 Carbon Dioxide 28.0 BUN 18 Creatinine 0.70 Glucose 87 Calcium 9.2 Total Bilirubin 0.40 AST 19 (more content not included)... Normal [facility] Stool Occult Blood iFOBon STOB Positive Normal [facility] Comment on above: Performed By: #### M 100.7900 #### [facility] [place], [address] Stool gastrointestinal hemog lobin detection by immunologic methodOrdered By: Donald Park on 01-02-2025 Lower GI hemoglobin IA Ql (Stl) Positive Abnormal [facility] Absolute lymphocyte countOrd ered By: Donald Park on 12-28-2024 Lymphocytes Auto (Unsp spec) [#/Vol] 1.22 10*3/uL 0.83-4.51 [facility] Absolute neutrophil countOrd ered By: Donald Park on 12-28-2024 Neutrophils (Bld) [#/Vol] 9.3 10*3/uL High 2.0-7.7 [facility] Anion gap in Serum or Plasma Ordered By: Donald Park on 12-28-2024 Anion gap [Moles/Vol] 10 mmol/L 5-15 [facility] Automated lymphocyte count a s percentage of total leukocytesOrdered By: Donald Park on 12-28-2024 Lymphocytes/100 WBC Auto (Unsp spec) 10.6 % Low 19-41 [facility] BUN/creatinine ratioOrdered By: Donald Park on 12-28-2024 Urea nitrogen/Creatinine [Mass ratio] 27.9 mg/mg High 10-20 [facility] Basophil percentageOrdered B y: Donald Park on 12-28-2024 Basophils/100 WBC (Bld) 0.4 % 0-1 [facility] Bilirubin, totalOrdered By: Donald Park on 12-28-2024 Bilirubin [Mass/Vol] 0.21 mg/dL 0.00-1.30 [facility] CBC W/Diff, Automatedon 070 Absolute Lymph 1.22 X10 3/uL Normal 0.83-4.51 [facility] Comment on above: Performed By: #### L 100.0100, L500.4050 #### [facility] [address] [place], [address] Absolute Neut 9.3 X10 3/uL High 2.0-7.7 [facility] Comment on above: Performed By: #### L 100.0100, L500.4050 #### [facility] [address] [place], [address] Basophils/100 WBC (Bld) 0.4 % Normal 0-1 [facility] Comment on above: Performed By: #### L 100.0100, L500.4050 #### [facility] [address] [place], [address] Eosinophils/100 WBC (Bld) 0.4 % Normal 0-5 [facility] Comment on above: Performed By: #### L 100.0100, L500.4050 #### [facility] [address] [place], [address] Erythrocyte distribution width (RBC) [Ratio] 14.4 % Normal 11.6-14.6 [facility] Comment on above: Performed By: #### L 100.0100, L500.4050 #### [facility] [address] [place], [address] Hematocrit (Bld) [Volume fraction] 32.1 % Low 37-47 [facility] Comment on above: Performed By: #### L 100.0100, L500.4050 #### [facility] [address] [place], [address] Hemoglobin (Bld) [Mass/Vol] 9.6 g/dL Low 12.0-15.0 [facility] Comment on above: Performed By: #### L 100.0100, L500.4050 #### [facility] [address] [place], [address] IG% 0.300 Normal 0.0-0.9 [facility] Comment on above: Result Comment: IG% - Immature Granulocytes (promyelocytes, myelocytes and metamyelocytes) > 1% indicates that a LEFT SHIFT is Present. Performed By: #### L 100.0100, L500.4050 #### [facility] [address] [place], [address] Lymphocytes/100 WBC (Bld) 10.6 % Low 19-41 [facility] Comment on above: Performed By: #### L 100.0100, L500.4050 #### [facility] [address] [place], [address] MCH (RBC) [Entitic mass] 26.5 pg Low 27.0-32.0 [facility] Comment on above: Performed By: #### L 100.0100, L500.4050 #### [facility] [address] [place], [address] MCHC (RBC) [Mass/Vol] 29.9 g/dL Low 32-36 [facility] Comment on above: Performed By: #### L 100.0100, L500.4050 #### [facility] [address] [place], [address] MCV (RBC) [Entitic vol] 88.7 fL Normal 81-99 [facility] Comment on above: Performed By: #### L 100.0100, L500.4050 #### [facility] [address] [place], [address] Monocytes/100 WBC (Bld) 6.9 % Normal 0-10 [facility] Comment on above: Performed By: #### L 100.0100, L500.4050 #### [facility] [address] [place], [address] Neutrophils/100 WBC (Bld) 81.4 % High 47-70 [facility] Comment on above: Performed By: #### L 100.0100, L500.4050 #### [facility] [address] [place], [address] Nucleated RBC (Bld) [#/Vol] 0 10*3/uL Normal 0-5 [facility] Comment on above: Performed By: #### L 100.0100, L500.4050 #### [facility] [address] [place], [address] Platelet mean volume (Bld) [Entitic vol] 8.1 fL Normal 6.2-12.0 [facility] Comment on above: Performed By: #### L 100.0100, L500.4050 #### [facility] [address] [place], [address] Platelets (Bld) [#/Vol] 486 10*3/uL High 150-450 [facility] Comment on above: Performed By: #### L 100.0100, L500.4050 #### [facility] [address] [place], [address] RBC (Bld) [#/Vol] 3.62 10*6/uL Low 4.2-5.4 [facility] Comment on above: Performed By: #### L 100.0100, L500.4050 #### [facility] [address] [place], [address] RDW SD 46.1 fl High 35.1-43.9 [facility] Comment on above: Performed By: #### L 100.0100, L500.4050 #### [facility] [address] [place], [address] WBC (Bld) [#/Vol] 11.5 10*3/uL High 4.4-11.0 [facility] Comment on above: Performed By: #### L 100.0100, L500.4050 #### [facility] [address] [place], [address] Carbon dioxide, total [Moles /volume] in Central venous bloodOrdered By: Dnoald Park on 12-28-2024 CO2 [Moles/Vol] 28.2 mmol/L 21.0-32.0 [facility] Chloride assayOrdered By: Romelia Park on 12-28-2024 Chloride [Moles/Vol] 99 mmol/L 98-108 [facility] Comprehensive Metabolic Prof ilon 12-28-2024 Albumin [Mass/Vol] 3.6 g/dL Normal 3.4-4.8 [facility] Comment on above: Performed By: #### L 100.0100, L500.4050 #### [facility] [address] [place], [address] Albumin/Globulin [Mass ratio] 0.9 {ratio} Normal 0.9-2.4 [facility] Comment on above: Performed By: #### L 100.0100, L500.4050 #### [facility] [address] [place], [address] ALK PHOS 92 U/L Normal 35-104 [facility] Comment on above: Performed By: #### L 100.0100, L500.4050 #### [facility] [address] [place], [address] ALT [Catalytic activity/Vol] 6 U/L Normal <=34 [facility] Comment on above: Performed By: #### L 100.0100, L500.4050 #### [facility] [address] [place], [address] AST [Catalytic activity/Vol] 13 U/L Normal <=31 [facility] Comment on above: Performed By: #### L 100.0100, L500.4050 #### [facility] [address] [place], [address] Bilirubin [Mass/Vol] 0.21 mg/dL Normal 0.00-1.30 [facility] Comment on above: Performed By: #### L 100.0100, L500.4050 #### [facility] [address] [place], [address] BUN/CRE 27.9 RATIO High 10-20 [facility] Comment on above: Performed By: #### L 100.0100, L500.4050 #### [facility] [address] [place], [address] Calcium [Mass/Vol] 9.7 mg/dL Normal 7.6-11.0 [facility] Comment on above: Performed By: #### L 100.0100, L500.4050 #### [facility] [address] [place], [address] Chloride [Moles/Vol] 99 mmol/L Normal 98-108 [facility] Comment on above: Performed By: #### L 100.0100, L500.4050 #### [facility] [address] [place], [address] CO2 [Moles/Vol] 28.2 mmol/L Normal 21.0-32.0 [facility] Comment on above: Performed By: #### L 100.0100, L500.4050 #### [facility] [address] [place], [address] Creatinine [Mass/Vol] 0.48 mg/dL Low 0.70-1.20 [facility] Comment on above: Performed By: #### L 100.0100, L500.4050 #### [facility] [address] [place], [address] ECRCL 31.86 ml/min Low 50-250 [facility] Comment on above: Performed By: #### L 100.0100, L500.4050 #### [facility] [address] [place], [address] GAP 10 Normal 5-15 [facility] Comment on above: Performed By: #### L 100.0100, L500.4050 #### [facility] [address] [place], [address] GFR/1.73 sq M.predicted among non-blacks MDRD (S/P/Bld) [Vol rate/Area] 100 mL/min/{1.73_m2} Normal >60 [facility] Comment on above: Result Comment: mL/m in/1.73m2 CKD-EPI Creatinine Equation (2020) Performed By: #### L 100.0100, L500.4050 #### [facility] [address] [place], [address] Globulin (S) [Mass/Vol] 4.0 g/dL Normal 2.2-4.2 [facility] Comment on above: Performed By: #### L 100.0100, L500.4050 #### [facility] [address] [place], [address] Glucose [Mass/Vol] 83 mg/dL Normal 70-99 [facility] Comment on above: Performed By: #### L 100.0100, L500.4050 #### [facility] [address] [place], [address] Potassium [Moles/Vol] 3.7 mmol/L Normal 3.3-5.1 [facility] Comment on above: Performed By: #### L 100.0100, L500.4050 #### [facility] [address] [place], [address] Sodium [Moles/Vol] 137 mmol/L Normal 133-145 [facility] Comment on above: Performed By: #### L 100.0100, L500.4050 #### [facility] [address] [place], [address] T PROT 7.6 g/dL Normal 5.9-8.4 [facility] Comment on above: Performed By: #### L 100.0100, L500.4050 #### [facility] [address] [place], [address] Urea nitrogen [Mass/Vol] 14 mg/dL Normal 4-19 [facility] Comment on above: Performed By: #### L 100.0100, L500.4050 #### [facility] [address] [place], [address] Eosinophil percentageOrdered By: Donald Park on 12-28-2024 Eosinophils/100 WBC (Bld) 0.4 % 0-5 [facility] Erythrocyte distribution wid th ratioOrdered By: Donald Park on 12-28-2024 Erythrocyte distribution width (RBC) [Ratio] 14.4 % 11.6-14.6 [facility] Erythrocyte distribution wid th standard deviationOrdered By: Donald Park on 12-28-2024 Erythrocyte distribution width (RBC) [Ratio] 46.1 fl High 35.1-43.9 [facility] Ferritinon 12-28-2024 Ferritin [Mass/Vol] 65 ng/mL Normal 22-378 [facility] Comment on above: Order Comment: ADD O N Performed By: #### L 100.0100, L500.4050 #### [facility] [address] [place], [address] Folate [Moles/volume] in Ser um or PlasmaOrdered By: Donald Park on 12-28-2024 Folate [Moles/Vol] 12.70 ng/mL 4.60-34.80 [facility] Folates,Serum (Folic Acid)on 12-28-2024 FOLATES,SERUM 12.70 ng/mL Normal 4.60-34.80 [facility] Comment on above: Order Comment: N Performed By: #### L 100.0100, L500.4050 #### [facility] [address] [place], [address] Glomerular filtration rate ( GFR) estimation/1.73 sq m using serum, plasma, or whole bOrdered By: Donald Park on 12-28-2024 GFR/1.73 sq M.predicted among non-blacks MDRD (S/P/Bld) [Vol rate/Area] 100 mL/min/{1.73_m2} >60 [facility] Comment on above: mL/min/1.73m2 CKD-EP I Creatinine Equation (2020) Hematocrit Auto (Bld) [Volum e fraction]Ordered By: Donald Xavier on 12-28-2024 Hematocrit (Bld) [Volume fraction] 32.1 % Low 37-47 [facility] Hemoglobin measurementOrdere d By: Donald Park on 12-28-2024 Hemoglobin (Bld) [Mass/Vol] 9.6 g/dL Low 12.0-15.0 [facility] Immature granulocytes/100 WB C Auto (Bld)Ordered By: Donald Park on 12-28-2024 Immature granulocytes/100 WBC (Bld) 0.300 % 0.0-0.9 [facility] Comment on above: IG% - Immature Granu locytes (promyelocytes, myelocytes and metamyelocytes) > 1% indicates that a LEFT SHIFT is Present. Iron measurement (mass/mass) Ordered By: Donald Park on 12-28-2024 Iron (Unsp spec) [Mass/Mass] 21 ug/dL Low 50-170 [facility] Iron+Iron Binding Capacityon 12-28-2024 Iron [Mass/Vol] 21 ug/dL Low 50-170 [facility] Comment on above: Order Comment: ADD O N Performed By: #### L 100.0100, L500.4050 #### [facility] [address] [place], [place], [address] IRON SATURATION 7.0 Low 13-59 [facility] Comment on above: Order Comment: ADD O N Performed By: #### L 100.0100, L500.4050 #### [facility] [address] [place], [address] TIBC 299 ug/dL Normal 250-450 [facility] Comment on above: Order Comment: ADD O N Performed By: #### L 100.0100, L500.4050 #### [facility] [address] [place], [address] UIBC 278 ug/dL Normal 228-428 [facility] Comment on above: Order Comment: ADD O N Performed By: #### L 100.0100, L500.4050 #### [facility] [address] [place], [address] LDHon 12-28-2024 LDH 141 U/L Normal 84-246 [facility] Comment on above: Order Comment: 1 Performed By: #### L 100.0100, L500.4050 #### [facility] [address] [place], [address] Laboratory - Chemistry and C hemistry - challengeOrdered By: Donald Park on 12-28-2024 AST [Catalytic activity/Vol] 13 U/L <32 [facility] Lactate dehydrogenase (LDH) measurementOrdered By: Donald Park on 12-28-2024 LDH [Catalytic activity/Vol] 141 U/L 84-246 [facility] MCV (mean corpuscular volume ) determinationOrdered By: Donald Park on 12-28-2024 MCV (RBC) [Entitic vol] 88.7 fL 81-99 [facility] Mean corpuscular hemoglobin (MCH) determinationOrdered By: Donald Park on 12-28-2024 MCH (RBC) [Entitic mass] 26.5 pg Low 27.0-32.0 [facility] Mean corpuscular hemoglobin concentration (MCHC) determinationOrdered By: Donald Park on 12-28-2024 MCHC (RBC) [Mass/Vol] 29.9 g/dL Low 32-36 [facility] Mean platelet volume determi nationOrdered By: Donald Park on 12-28-2024 Platelet mean volume (Bld) [Entitic vol] 8.1 fL 6.2-12.0 [facility] Monocyte percentageOrdered B y: Donald Park on 12-28-2024 Monocytes/100 WBC (Bld) 6.9 % 0-10 [facility] Neutrophil percentageOrdered By: Donald Park on 12-28-2024 Neutrophils/100 WBC (Bld) 81.4 % High 47-70 [facility] No Panel InformationOrdered By: Donald Park on 12-28-2024 Unsaturated Iron Binding Capacity 278 ug/dL 228-428 [facility] Nucleated red blood cell per centageOrdered By: Donald Park on 12-28-2024 Nucleated RBC/100 WBC (Bld) [Ratio] 0 % 0-5 [facility] Oncology Visit Reporton Oncology Visit Report [facility] [place] [facility] [place] [address] [address] OFFICE VISIT Date of Service: 12/28/24 1132 MR#: [id number] Acct: [id number] Name: ASHLEE MILLER Rep #: [id number] : 1950 From: Donald Park MD Age/Sex: 74/F Location: [facility] Status: Signed HPI Subjective Date of Service 12/28/24 Chief Complaint F/u for R breast cancer. History of Present Illness 74 y.o.woman presented with abnormal mammogram, she had stereotactic breast biopsy on November 26, 2016 which showed invasive ductal carcinoma with atypical features, nuclear grade 2, ER/[place] negative, HER- 2 was 1-2+ by IHC, FISH negative. 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 Pathology showed Invasive ductal carcinoma, tumor size 8mm, sentinel node 1/1 negative, pT1b, pN0 M0, Stage IA disease. Received adjuvant chemotherapy with Taxotere/Cytoxan from 02/12/17 to 04/23/2017. Developed post menopausal bleeding 02/26/17 and subsequently underwent transvaginal US 03/13/[address] Treadwell which demonstrated possible 3mm endometrial polyp, fluid filled endometrial cavity, uterine fibroid and 2.7 complex left ovarian cyst. Endometrial curettage on 06/12/2017 showed atrophic endometrium. She remains on observation, comes in for follow up. Feels well, now on Home O2 by [place]. [facility] Medical History Pleurisy Collapsed lung VATS bullectomy/doxy peurodesis (left) Port placement Osteoporosis COPD (chronic obstructive pulmonary disease) Cataract Visual disturbances, right eye Surgical History History of exploratory laparotomy History of bilateral mastectomy History of breast biopsy History of cataract extraction Family History Mother Hypoglycemia Neuropathy Thyroid disorder Hypertension Heart disease Diverticulitis Father COPD (chronic obstructive pulmonary disease) Social History Smoking Status: Current every day smoker tobacco type: cigarettes alcohol intake: never substance use type: does not use Intake Vital Signs 08/10/24 09:00 12/09/24 06:22 12/28/24 11:33 Height 5 ft 3 in 5 ft 3 in 5 ft 3 in Weight: 31.099 kg BMI 12.1 BP 110/60 Blood Pressure Location Lt brachial Position Sitting Respiration 14 Pulse 99 Pulse Source Monitor Pulse Oximetry (%) 98 Oxygen Delivery Method nasal canula Oxygen Flow Rate (L/min) 2 Intake Is patient in pain?: No Allergies No Known Allergies Allergy (Verified 12/28/24 11:39) Medications ???Medication ???Instructions ???Recorded ???Confirmed ???Type methocarbamol 500 mg tablet 500 mg PO 4X/DAY PRN PRN Muscle 12/28/24 Rx pain/spasm #40 tabs guaifenesin 1,200 mg tablet, 1,200 mg PO Q12H #60 tabs 10/07/23 12/28/24 Rx extended release 12 hr lorazepam 0.5 mg tablet 0.5 mg PO Q6H PRN dyspnea 10/07/23 12/28/24 History oxybutynin chloride 5 mg 5 mg PO DAILY 10/07/23 12/28/24 Hi story tablet,extended release 24 hr budesonide 160 mcg-glycopyr 9 2 inh inhalation BID #10.7 grams 0 12/25/23 12/28/24 Rx mcg-formot 4.8 mcg/actuation HFA inhaler (Breztri Aerosphere) azithromycin 250 mg tablet 250 mg PO QMWF #12 tabs 01/19/24 0 12/28/24 Rx albuterol sulfate 2.5 mg/3 mL 2.5 mg (3 mL) inhalation Q4H PRN 0 02/26/24 12/28/24 Rx (0.083 %) solution for nebulization Sob /Or Wheezing #180 mL roflumilast 250 mcg tablet 250 mcg PO QDAY #30 tabs 08/10/24 12/28/24 Rx (Daliresp) voriconazole 50 mg tablet 150 mg PO BID 08/10/24 12/28/24 Hi story albuterol sulfate 90 mcg/actuation 2 puff inhalation Q4H PRN 12/28/24 Rx aerosol inhaler (Ventolin HFA) shortness of breath or wheezing #18 grams prednisone 10 mg tablet 10 mg PO QDAY #90 tabs 11/01/24 Rx amoxicillin 875 mg-potassium 1 tab PO Q12H #28 tabs 12/13/24 Rx clavulanate 125 mg tablet Have you fallen in the past year?: Yes Central Venous Access Central Venous Access: No Exam Physical Exam Narrative On home O2 by [place] Const alert, oriented x3 and no apparent distress General Appearance: cooperative and comfortable HEENT normocephalic, external ears normal and external nose normal Eyes no scleral icterus Neck supple Lymph Lymphatic: no lymphadenopathy noted Chest inspection of chest normal Chest Narrative: Bilateral mastectomy scars, no nodules. Resp normal respiratory effort, no use of accessory muscles and clear to auscultation bilaterally Cardio regular rate, regular rhythm, S1 normal heart sound, S2 normal heart katherine (more content not included)... Normal [facility] Platelet countOrdered By: Romelia Park on 12-28-2024 Platelets (Bld) [#/Vol] 486 10*3/uL High 150-450 [facility] Potassium measurement (mass/ volume)Ordered By: Donald Park on 12-28-2024 Potassium (Unsp spec) [Mass/Vol] 3.7 mmol/L 3.3-5.1 [facility] RBC Auto (Bld) [#/Vol]Ordere d By: Donald Park on 12-28-2024 RBC (Bld) [#/Vol] 3.62 10*6/uL Low 4.2-5.4 [facility] Serum creatinine measurement (mass/volume)Ordered By: Donald Park on 12-28-2024 Creatinine [Mass/Vol] 0.48 mg/dL Low 0.70-1.20 [facility] Serum globulin measurementOr dered By: Donald Park on 12-28-2024 Globulin (S) [Mass/Vol] 4.0 g/dL 2.2-4.2 [facility] Serum glucose measurement (m ass/volume)Ordered By: Donald Park on 12-28-2024 Glucose [Mass/Vol] 83 mg/dL 70-99 [facility] Serum or plasma alanine brewer otransferase (ALT) measurementOrdered By: Donald Park on 12-28-2024 ALT [Catalytic activity/Vol] 6 U/L <35 [facility] Serum or plasma albumin meka urement (mass/volume)Ordered By: Donald Park on 12-28-2024 Albumin [Mass/Vol] 3.6 g/dL 3.4-4.8 [facility] Serum or plasma albumin/glob ulin mass ratioOrdered By: Donald Park on 12-28-2024 Albumin/Globulin [Mass ratio] 0.9 {ratio} 0.9-2.4 [facility] Serum or plasma alkaline anurag sphatase measurementOrdered By: Donald Park on 12-28-2024 ALP [Catalytic activity/Vol] 92 U/L 35-104 [facility] Serum or plasma calcium meka urement (mass/volume)Ordered By: Donald Park on 12-28-2024 Calcium [Mass/Vol] 9.7 mg/dL 7.6-11.0 [facility] Serum or plasma ferritin ratna surement (mass/volume)Ordered By: Donald Park on 12-28-2024 Ferritin [Mass/Vol] 65 ng/mL 22-378 [facility] Serum or plasma iron saturat ion measurement (mass fraction)Ordered By: Donald Park on 12-28-2024 Iron saturation [Mass fraction] 7.0 % Low 13-59 [facility] Serum or plasma urea nitroge n measurement (mass/volume)Ordered By: Donald Park on 12-28-2024 Urea nitrogen [Mass/Vol] 14 mg/dL 4-19 [facility] Sodium levelOrdered By: Tate Park on 12-28-2024 Sodium [Moles/Vol] 137 mmol/L 133-145 [facility] Total proteinOrdered By: Yarielmagali Park on 12-28-2024 Protein [Mass/Vol] 7.6 g/dL 5.9-8.4 [facility] Vitamin B12on 12-28-2024 Cobalamin (Vitamin B12) [Mass/Vol] 376 pg/mL Normal 180-914 [facility] Comment on above: Order Comment: ADD O N Performed By: #### L 100.0100, L500.4050 #### [facility] [address], [place], [address] Vitamin B12 ser/plasOrdered By: Donald Park on 12-28-2024 Cobalamin (Vitamin B12) [Mass/Vol] 376 pg/mL 180-914 [facility] White blood cell (WBC) count Ordered By: Donald Park on 12-28-2024 WBC (Bld) [#/Vol] 11.5 10*3/uL High 4.4-11.0 [facility] Pulmonary Visit Reporton Pulmonary Visit Report [facility] [place] [address] [place], [place] [address] OFFICE VISIT Date of Service: 12/09/24 MR#: [id number] Acct: [id number] Name: ASHLEE MILLER Rep #: [id number] : 1950 Provider: Kaylie Ames NP Age/Sex: 74/F Location: [facility] [place] Status: Signed with Addenda ADDENDUM by Kaylie Ames NP on 12/13/24 at 6699 Assessment and Plan Assessment and Plan (1) Lung nodule: Status: Acute Comment: 2.2 x 2.4 cm right apical left lower lobe Plan: I spoke with Dr. Finn today. He plans to prescribed another round of voriconazole and I will send in 2 weeks of Augmentin. Patient will notify this practice if she has worsening symptoms and or if she does not improve. 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 Comment: BMI 12.9 Orders: Orders Chest without Contrast 01/30/25 R91.1 - Solitary pulmonary nodule Medications: New amoxicillin-pot clavulanate 875-125 mg 1 TAB PO Q12H 28 tabs 0RF Discontinued amoxicillin-pot clavulanate 875-125 mg Discontinued Reason: Order Completed 1 TAB PO BID 6 tabs 0RF Plan Details Follow Up: February 2025 (LMR) 12/13/24 1426 Date Kaylie AmesC cc: * Signed Assessment and Plan Assessment and Plan (1) Lung nodule: Status: Acute Comment: 2.2 x 2.4 cm right apical left lower lobe Plan: PET positive lesion identified with a negative quantiferon gold but a positive aspergillosis antibody and possible fungus noted on sputum sample. 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 The recent CT Scan from October 28, 2024 was previously sent to [facility]. Today I attempted to reach [facility] to determine what the course of treatment was for the results of this scan. The office is closed today. I attempted to call the on-call provider but have not received a phone call as of yet. A note has been sent to Dr. Finn's office requesting the plan of treatment for the infected bulla noted on the imaging. I have recommended repeating the chest CT in 3 months and have ordered it accordingly. The previous PET scan was likely positive due to the aspergillosis that has been identified. Given patient's history of breast malignancy and continued smoking close monitoring is warranted. 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: Status: Chronic Comment: FEV1 35%, Alpha-1 normal Plan: End-stage. Continue current maintenance medication, on triple therapy with use of Breztri. Continue prophylactic azithromycin Thursday, Thursday and Thursday weekly. Continue with use of Daliresp. Continue on prednisone 10 mg daily. The patient has declined palliative referral in the past on 2 separate occasions. Use albuterol as needed every 4 hours. Contact the office for any new or worsening symptoms. Recently, prednisone burst have not been beneficial to this patient. (3) Respiratory failure with hypoxia: Status: Chronic Qualifiers: Chronicity: chronic Qualified Code(s): J96.11 - Chronic respiratory failure with hypoxia Plan: The patient is using and benefiting from oxygen. Today she is using 2l/min by portable concentrator and this is maintaining her saturation. Continue to utilize to maintain a saturation of 89-92%. 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 Work on increasing daily caloric intake. Orders: Orders Chest without Contrast 01/30/25 R91.1 - Solitary pulmonary nodule Medications: Discontinued amoxicillin-pot clavulanate 875-125 mg Discontinued Reason: Order Completed 1 TAB PO BID 6 tabs 0RF Plan Details Follow Up: February 2025 (LMR) HPI HPI Comments Details: This 74 year old patient presents to the office today for follow-up of her stage IV very severe COPD with chronic hypoxic respiratory failure. She is ambulatory and currently on supplemental oxygen. She does not believe that she has received antibiotics or prednisone for any breathing problems since last follow up. The patient reports that she has been compliant with supplemental oxygen. She typically uses 5 L/min. She states that sometimes the portable oxygen concentrator does not go high enough when she becomes exerted. She is basing this off of the degree of shortness of breath she experiences on exertion. She will typically use 3 L at home. She is compliant Breztri 2 puffs twice daily. She does report rinsing her mouth out after each use. She denies any medication side effect s (more content not included)... Normal [facility] Chest without Contraston Chest without Contrast [facility] Services [address] [place], [place] [address] Chest without Contrast MR#: [id number] Acct: [id number] Name: ASHLEE MILLER Rep #: [id number] : 1950 F 74 From: Calin dudley MD PCP: LARRY Garcia Status: REG CLI Study: Chest without Contrast Date of Exam: 10/28/24 Exam# [id number] Ordering Dr: Kaylie Ames EL TEACHER- C PROCEDURE: CHEST WITHOUT CONTRAST 10/28/2024 REASON FOR EXAM: CAVITARY LESION TECHNIQUE: Chest CT without contrast. Coronal and Sagittal reconstruction series were provided. One or more dose reduction techniques were used (e.g., Automated exposure control, adjustment of the mA and/or kV according to patient size, use of iterative reconstruction technique RADIATION DOSE SUMMARY: CTDlvol: 6.15 mGy DLP: 244.17 mGycm COMPARISON: Comparison is made with prior study dated July 01, 2024. FINDINGS: Hardware: None Lymph nodes: No significant mediastinal lymph nodes are seen. Heart and Vasculature: Coronary artery calcifications are noted. Atherosclerotic calcifications of the thoracic aorta. Thoracic aorta and pulmonary arteries have normal contours; noncontrast technique limits evaluation. Coronary Artery Calcifications: Present Lungs and Airways: Advanced emphysematous changes are present. Persistent infiltrate in the left lower lobe. At this time, there is evidence of multiple cystic spaces with a tiny air-fluid levels suggestive of possible infected bulla. There is also evidence of underlying bronchiectasis. Residual infiltrate in the inferior aspect of the posterior segment of the left lower lobe. 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 Pleura: No significant pleural effusion is seen. Upper Abdomen: Unremarkable Bones: Degenerative changes of the thoracic spine. CT/Chest without Contrast IMPRESSION: Advanced emphysematous changes. The previously seen consolidation in the left lower lobe has become less coalescent with multiple small cystic spaces containing air-fluid level suggestive of possible infected bulla. Reading Location: [id number] CC: EL TEACHERIliana Suarez; Kaylie Ames NP [employer] Supervisor: Signed Normal [facility] Anion gap in Serum or Plasma Ordered By: Sourav Finn on 09-12-2024 Anion gap [Moles/Vol] 11 mmol/L 5-15 [facility] Automated blood erythrocyte countOrdered By: Sourav Finn on 09-12-2024 RBC (Bld) [#/Vol] 3.78 10*6/uL Low 4.2-5.4 [facility] Comment on above: Performed By: #### L 100.0100, L500.4050 #### [facility] [address] [place], [address] Automated blood hematocrit ( percentage)Ordered By: Sourav Finn on 09-12-2024 Hematocrit (Bld) [Volume fraction] 32.8 % Low 37-47 [facility] Comment on above: Performed By: #### L 100.0100, L500.4050 #### [facility] [address] [place], [address] BUN/creatinine ratioOrdered By: Sourav Finn on 09-12-2024 Urea nitrogen/Creatinine [Mass ratio] 31.0 mg/mg High 10-20 [facility] Basic Metabolic Profile (BMP )on 09-12-2024 BUN/CRE 31.0 RATIO High [address] [place] [address] Comment on above: Order Comment: CBC Performed By: #### L 100.0100, L500.4050 #### [facility] [address] [place], [address] GAP 11 Normal 11-03 [facility] Comment on above: Order Comment: CBC Performed By: #### L 100.0100, L500.4050 #### [facility] [address] [place], [address] Bilirubin directOrdered By: Sourav Finn on 09-12-2024 Bilirubin.direct [Mass/Vol] mg/dL 0.00-0.30 [facility] Bilirubin, totalOrdered By: Sourav Finn on 09-12-2024 Bilirubin [Mass/Vol] mg/dL 0.00-1.30 [facility] Bilirubin.direct [Mass/Vol]O rdered By: Sourav Finn on 09-12-2024 Direct Bilirubin < 0.08 mg/dL 0.00-0.30 [facility] CBC-Complete Blood Cnt No Di ffon 09-12-2024 RDW SD 56.2 fl High 35.1-43.9 [facility] Comment on above: Performed By: #### L 100.0100, L500.4050 #### [facility] [address] [place], [address] Carbon dioxide, total [Moles /volume] in Central venous bloodOrdered By: Sourav Finn on 09-12-2024 CO2 [Moles/Vol] 27.1 mmol/L Normal 21.0-32.0 [facility] Comment on above: Order Comment: CBC Performed By: #### L 100.0100, L500.4050 #### [facility] [address] [place], [address] Chloride assayOrdered By: Marylou Finn on 09-12-2024 Chloride [Moles/Vol] 99 mmol/L Normal 98-108 [facility] Comment on above: Order Comment: CBC Performed By: #### L 100.0100, L500.4050 #### [facility] [address] [place], [address] Erythrocyte distribution wid th ratioOrdered By: Sourav Finn on 09-12-2024 Erythrocyte distribution width (RBC) [Ratio] 17.8 % High 11.6-14.6 [facility] Comment on above: Performed By: #### L 100.0100, L500.4050 #### [facility] [address] [place], [address] Erythrocyte distribution wid th standard deviationOrdered By: Sourav Finn on 09-12-2024 Erythrocyte distribution width (RBC) [Entitic vol] 56.2 fL High 35.1-43.9 [facility] Erythrocyte distribution width (RBC) [Ratio] 56.2 fl High 35.1-43.9 [facility] GFR/1.73 sq M.predicted lakshmi g non-blacks MDRD (S/P/Bld) [Vol rate/Area]Ordered By: Sourav Finn on 09-12-2024 Estimated GFR (MDRD) Non-Af Amer 102 >60 [facility] Comment on above: mL/min/1.73m2 CKD-EP I Creatinine Equation (2020) Glomerular filtration rate ( GFR) estimation/1.73 sq m using serum, plasma, or whole bOrdered By: Sourav Finn on 09-12-2024 GFR/1.73 sq M.predicted among non-blacks MDRD (S/P/Bld) [Vol rate/Area] 102 mL/min/{1.73_m2} Normal >60 [facility] Comment on above: mL/min/1.73m2 CKD-EP I Creatinine Equation (2020) Order Comment: CBC Result Comment: mL/m in/1.73m2 CKD-EPI Creatinine Equation (2020) Performed By: #### L 100.0100, L500.4050 #### [facility] [address] [place], [address] Hemoglobin measurementOrdere d By: Sourav Finn on 09-12-2024 Hemoglobin (Bld) [Mass/Vol] 9.8 g/dL Low 12.0-15.0 [facility] Comment on above: Performed By: #### L 100.0100, L500.4050 #### [facility] [address] [place], [address] Liver Profileon 09-12-2024 ALK PHOS 88 U/L Normal 35-104 [facility] Comment on above: Order Comment: CBC Performed By: #### L 100.0100, L500.4050 #### [facility] [address] [place], [address] D BILI < 0.08 Normal 0.00-0.30 [facility] Comment on above: Order Comment: CBC Performed By: #### L 100.0100, L500.4050 #### [facility] [address] [place], [address] T BILI < 0.15 Normal 0.00-1.30 [facility] Comment on above: Order Comment: CBC Performed By: #### L 100.0100, L500.4050 #### [facility] [address] [place], [address] T PROT 6.7 g/dL Normal 5.9-8.4 [facility] Comment on above: Order Comment: CBC Performed By: #### L 100.0100, L500.4050 #### [facility] [address] [place], [address] Liver ProfileOrdered By: Robert Finn on 09-12-2024 AST [Catalytic activity/Vol] 14 U/L Normal <=31 [facility] Comment on above: Order Comment: CBC Performed By: #### L 100.0100, L500.4050 #### [facility] [address] [place], [address] MCV (mean corpuscular volume ) determinationOrdered By: Sourav Finn on 09-12-2024 MCV (RBC) [Entitic vol] 86.8 fL Normal 81-99 [facility] Comment on above: Performed By: #### L 100.0100, L500.4050 #### [facility] [address] [place], [address] Mean corpuscular hemoglobin (MCH) determinationOrdered By: Sourav Finn on 09-12-2024 MCH (RBC) [Entitic mass] 25.9 pg Low 27.0-32.0 [facility] Comment on above: Performed By: #### L 100.0100, L500.4050 #### [facility] [address] [place], [address] Mean corpuscular hemoglobin concentration (MCHC) determinationOrdered By: Sourav Finn on 09-12-2024 MCHC (RBC) [Mass/Vol] 29.9 g/dL Low 32-36 [facility] Comment on above: Performed By: #### L 100.0100, L500.4050 #### [facility] [address] [place], [address] Mean platelet volume determi nationOrdered By: Sourav Finn on 09-12-2024 Platelet mean volume (Bld) [Entitic vol] 8.3 fL Normal 6.2-12.0 [facility] Comment on above: Performed By: #### L 100.0100, L500.4050 #### [facility] [address] [place], [address] Platelet countOrdered By: Marylou Finn on 09-12-2024 Platelets (Bld) [#/Vol] 397 10*3/uL Normal 150-450 [facility] Comment on above: Performed By: #### L 100.0100, L500.4050 #### [facility] [address] [place], [address] Potassium measurement (mass/ volume)Ordered By: Sourav Finn on 09-12-2024 Potassium [Moles/Vol] 3.7 mmol/L Normal 3.3-5.1 [facility] Comment on above: Order Comment: CBC Performed By: #### L 100.0100, L500.4050 #### [facility] [address] [place], [address] Potassium (Unsp spec) [Mass/Vol] 3.7 mmol/L 3.3-5.1 [facility] Serum creatinine measurement (mass/volume)Ordered By: Sourav Finn on 09-12-2024 Creatinine [Mass/Vol] 0.45 mg/dL Low 0.70-1.20 [facility] Comment on above: Order Comment: CBC Performed By: #### L 100.0100, L500.4050 #### [facility] [address] [place], [address] Serum globulin measurementOr dered By: Sourva Finn on 09-12-2024 Globulin (S) [Mass/Vol] 3.1 g/dL Normal 2.2-4.2 [facility] Comment on above: Order Comment: CBC Performed By: #### L 100.0100, L500.4050 #### [facility] [address] [place], [address] Serum glucose measurement (m ass/volume)Ordered By: Sourav Finn on 09-12-2024 Glucose [Mass/Vol] 112 mg/dL High 70-99 [facility] Comment on above: Order Comment: CBC Performed By: #### L 100.0100, L500.4050 #### [facility] [address] [place], [address] Serum or plasma alanine brewer otransferase (ALT) measurementOrdered By: Sourav Finn on 09-12-2024 ALT [Catalytic activity/Vol] 7 U/L Normal <=34 [facility] Comment on above: Order Comment: CBC Performed By: #### L 100.0100, L500.4050 #### [facility] [address] [place], [address] Serum or plasma albumin meka urement (mass/volume)Ordered By: Sourav Finn on 09-12-2024 Albumin [Mass/Vol] 3.6 g/dL Normal 3.4-4.8 [facility] Comment on above: Order Comment: CBC Performed By: #### L 100.0100, L500.4050 #### [facility] [address] [place], [address] Serum or plasma alkaline anurag sphatase measurementOrdered By: Sourav Finn on 09-12-2024 ALP [Catalytic activity/Vol] 88 U/L 35-104 [facility] Serum or plasma calcium meka urement (mass/volume)Ordered By: Sourav Finn on 09-12-2024 Calcium [Mass/Vol] 9.5 mg/dL Normal 7.6-11.0 [facility] Comment on above: Order Comment: CBC Performed By: #### L 100.0100, L500.4050 #### [facility] [address] [place], [address] Serum or plasma urea nitroge n measurement (mass/volume)Ordered By: Sourav Finn on 09-12-2024 Urea nitrogen [Mass/Vol] 14 mg/dL Normal 4-19 [facility] Comment on above: Order Comment: CBC Performed By: #### L 100.0100, L500.4050 #### [facility] [address] [place], [address] Sodium levelOrdered By: Marcus Finn on 09-12-2024 Sodium [Moles/Vol] 137 mmol/L Normal 133-145 [facility] Comment on above: Order Comment: CBC Performed By: #### L 100.0100, L500.4050 #### [facility] [address] [place], [address] Total proteinOrdered By: Robert Finn on 09-12-2024 Protein [Mass/Vol] 6.7 g/dL 5.9-8.4 [facility] White blood cell (WBC) count Ordered By: Sourav Finn on 09-12-2024 WBC (Bld) [#/Vol] 13.5 10*3/uL High 4.4-11.0 [facility] Comment on above: Performed By: #### L 100.0100, L500.4050 #### [facility] [address] [place], [address] Anion gap in Serum or Plasma Ordered By: Sourav Finn on 08-24-2024 Anion gap [Moles/Vol] 10 mmol/L 5-15 [facility] BUN/creatinine ratioOrdered By: Sourav Finn on 08-24-2024 Urea nitrogen/Creatinine [Mass ratio] 29.9 mg/mg High 10- [facility] Basic Metabolic Profile (BMP )on 08-24-2024 BUN/CRE 29.9 RATIO High 10-20 [facility] Comment on above: Performed By: #### L 100.0100, L500.4050 #### [facility] [address] [place], [address] Calcium [Mass/Vol] 9.8 mg/dL Normal 7.6-11.0 [facility] Comment on above: Performed By: #### L 100.0100, L500.4050 #### [facility] [address] [place], [address] Chloride [Moles/Vol] 100 mmol/L Normal 98-108 [facility] Comment on above: Performed By: #### L 100.0100, L500.4050 #### [facility] [address] [place], [address] CO2 [Moles/Vol] 28.4 mmol/L Normal 21.0-32.0 [facility] Comment on above: Performed By: #### L 100.0100, L500.4050 #### [facility] [address] [place], [address] Creatinine [Mass/Vol] 0.51 mg/dL Low 0.70-1.20 [facility] Comment on above: Performed By: #### L 100.0100, L500.4050 #### [facility] [address] [place], [address] GAP 10 Normal 5-15 [facility] Comment on above: Performed By: #### L 100.0100, L500.4050 #### [facility] [address] [place], [address] GFR/1.73 sq M.predicted among non-blacks MDRD (S/P/Bld) [Vol rate/Area] 100 mL/min/{1.73_m2} Normal >60 [facility] Comment on above: Result Comment: mL/m in/1.73m2 CKD-EPI Creatinine Equation (2020) Performed By: #### L 100.0100, L500.4050 #### [facility] [address] [place], [address] Glucose [Mass/Vol] 115 mg/dL High 70-99 [facility] Comment on above: Performed By: #### L 100.0100, L500.4050 #### [facility] [address] [place], [address] Potassium [Moles/Vol] 4.5 mmol/L Normal 3.3-5.1 [facility] Comment on above: Performed By: #### L 100.0100, L500.4050 #### [facility] [address] [place], [address] Sodium [Moles/Vol] 138 mmol/L Normal 133-145 [facility] Comment on above: Performed By: #### L 100.0100, L500.4050 #### [facility] [address] [place], [address] Urea nitrogen [Mass/Vol] 15 mg/dL Normal 4-19 [facility] Comment on above: Performed By: #### L 100.0100, L500.4050 #### [facility] [address] [place], [address] Bilirubin directOrdered By: Sourav Finn on 08-24-2024 Bilirubin.direct [Mass/Vol] mg/dL 0.00-0.30 [facility] Bilirubin, totalOrdered By: Sourav Finn on 08-24-2024 Bilirubin [Mass/Vol] mg/dL 0.00-1.30 [facility] Bilirubin.direct [Mass/Vol]O rdered By: Sourav Finn on 08-24-2024 Direct Bilirubin < 0.08 mg/dL 0.00-0.30 [facility] CBC-Complete Blood Cnt No Di ffon 08-24-2024 Erythrocyte distribution width (RBC) [Ratio] 17.4 % High 11.6-14.6 [facility] Comment on above: Performed By: #### L 100.0100, L500.4050 #### [facility] [address] [place], [address] Hematocrit (Bld) [Volume fraction] 31.3 % Low 37-47 [facility] Comment on above: Performed By: #### L 100.0100, L500.4050 #### [facility] [address] [place], [address] Hemoglobin (Bld) [Mass/Vol] 9.2 g/dL Low 12.0-15.0 [facility] Comment on above: Performed By: #### L 100.0100, L500.4050 #### [facility] [address] [place], [address] MCH (RBC) [Entitic mass] 24.9 pg Low 27.0-32.0 [facility] Comment on above: Performed By: #### L 100.0100, L500.4050 #### [facility] [address] [place], [address] MCHC (RBC) [Mass/Vol] 29.4 g/dL Low 32-36 [facility] Comment on above: Performed By: #### L 100.0100, L500.4050 #### [facility] [address] [place], [address] MCV (RBC) [Entitic vol] 84.6 fL Normal 81-99 [facility] Comment on above: Performed By: #### L 100.0100, L500.4050 #### [facility] [address] [place], [address] Platelet mean volume (Bld) [Entitic vol] 8.2 fL Normal 6.2-12.0 [facility] Comment on above: Performed By: #### L 100.0100, L500.4050 #### [facility] [address] [place], [address] Platelets (Bld) [#/Vol] 540 10*3/uL High 150-450 [facility] Comment on above: Performed By: #### L 100.0100, L500.4050 #### [facility] [address] [place], [address] RBC (Bld) [#/Vol] 3.70 10*6/uL Low 4.2-5.4 [facility] Comment on above: Performed By: #### L 100.0100, L500.4050 #### [facility] [address] [place], [address] RDW SD 53.5 fl High 35.1-43.9 [facility] Comment on above: Performed By: #### L 100.0100, L500.4050 #### [facility] [address] [place], [address] WBC (Bld) [#/Vol] 14.3 10*3/uL High 4.4-11.0 [facility] Comment on above: Performed By: #### L 100.0100, L500.4050 #### [facility] [address] [place], [address] Carbon dioxide, total [Moles /volume] in Central venous bloodOrdered By: Sourav Finn on 08-24-2024 CO2 [Moles/Vol] 28.4 mmol/L 21.0-32.0 [facility] Chloride assayOrdered By: Marylou Finn on 08-24-2024 Chloride [Moles/Vol] 100 mmol/L 98-108 [facility] Erythrocyte distribution wid th ratioOrdered By: Sourav Finn on 08-24-2024 Erythrocyte distribution width (RBC) [Ratio] 17.4 % High 11.6-14.6 [facility] Erythrocyte distribution wid th standard deviationOrdered By: Sourav Finn on 08-24-2024 Erythrocyte distribution width (RBC) [Entitic vol] 53.5 fL High 35.1-43.9 [facility] Erythrocyte distribution width (RBC) [Ratio] 53.5 fl High 35.1-43.9 [facility] GFR/1.73 sq M.predicted lakshmi g non-blacks MDRD (S/P/Bld) [Vol rate/Area]Ordered By: Sourav Finn on 08-24-2024 Estimated GFR (MDRD) Non-Af Amer 100 >60 [facility] Comment on above: mL/min/1.73m2 CKD-EP I Creatinine Equation (2020) Glomerular filtration rate ( GFR) estimation/1.73 sq m using serum, plasma, or whole bOrdered By: Sourav Finn on 08-24-2024 GFR/1.73 sq M.predicted among non-blacks MDRD (S/P/Bld) [Vol rate/Area] 100 mL/min/{1.73_m2} >60 [facility] Comment on above: mL/min/1.73m2 CKD-EP I Creatinine Equation (2020) Hematocrit Auto (Bld) [Volum e fraction]Ordered By: Sourav Finn on 08-24-2024 Hematocrit (Bld) [Volume fraction] 31.3 % Low 37-47 [facility] Hemoglobin measurementOrdere d By: Sourav Finn on 08-24-2024 Hemoglobin (Bld) [Mass/Vol] 9.2 g/dL Low 12.0-15.0 [facility] - Chemistry and C hemistry - challengeOrdered By: Sourav Finn on 08-24-2024 AST [Catalytic activity/Vol] 12 U/L <32 [facility] [facility] Liver Profileon 08-24-2024 Albumin [Mass/Vol] 3.5 g/dL Normal 3.4-4.8 [facility] Comment on above: Performed By: #### L 100.0100, L500.4050 #### [facility] [address] [place], [place], [id number] ALK PHOS 115 U/L High 35-104 [facility] Comment on above: Performed By: #### L 100.0100, L500.4050 #### [facility] [address] [place], [address] ALT [Catalytic activity/Vol] 5 U/L Normal <=34 [facility] Comment on above: Performed By: #### L 100.0100, L500.4050 #### [facility] [address] [place], [address] AST [Catalytic activity/Vol] 12 U/L Normal <=31 [facility] Comment on above: Performed By: #### L 100.0100, L500.4050 #### [facility] [address] [place], [address] D BILI < 0.08 Normal 0.00-0.30 [facility] Comment on above: Performed By: #### L 100.0100, L500.4050 #### [facility] [address] [place], [address] Globulin (S) [Mass/Vol] 3.8 g/dL Normal 2.2-4.2 [facility] Comment on above: Performed By: #### L 100.0100, L500.4050 #### [facility] [address] [place], [address] T BILI < 0.15 Normal 0.00-1.30 [facility] Comment on above: Performed By: #### L 100.0100, L500.4050 #### [facility] [address] [place], [address] T PROT 7.3 g/dL Normal 5.9-8.4 [facility] Comment on above: Performed By: #### L 100.0100, L500.4050 #### [facility] [address] [place], [address] MCV (mean corpuscular volume ) determinationOrdered By: Sourav Finn on 08-24-2024 MCV (RBC) [Entitic vol] 84.6 fL 81-99 [facility] Mean corpuscular hemoglobin (MCH) determinationOrdered By: Sourav Finn on 08-24-2024 MCH (RBC) [Entitic mass] 24.9 pg Low 27.0-32.0 [facility] Mean corpuscular hemoglobin concentration (MCHC) determinationOrdered By: Sourav Finn on 08-24-2024 MCHC (RBC) [Mass/Vol] 29.4 g/dL Low 32-36 [facility] Mean platelet volume determi nationOrdered By: Sourav Finn on 08-24-2024 Platelet mean volume (Bld) [Entitic vol] 8.2 fL 6.2-12.0 [facility] Platelet countOrdered By: Marylou Finn on 08-24-2024 Platelets (Bld) [#/Vol] 540 10*3/uL High 150-450 [facility] Potassium (Unsp spec) [Mass/ Vol]Ordered By: Sourav Finn on 08-24-2024 Potassium [Moles/Vol] 4.5 mmol/L 3.3-5.1 [facility] Potassium measurement (mass/ volume)Ordered By: Sourav Finn on 08-24-2024 Potassium (Unsp spec) [Mass/Vol] 4.5 mmol/L 3.3-5.1 [facility] RBC Auto (Bld) [#/Vol]Ordere d By: Sourav Finn on 08-24-2024 RBC (Bld) [#/Vol] 3.70 10*6/uL Low 4.2-5.4 [facility] Serum creatinine measurement (mass/volume)Ordered By: Sourav Finn on 08-24-2024 Creatinine [Mass/Vol] 0.51 mg/dL Low 0.70-1.20 [facility] Serum globulin measurementOr dered By: Sourav Finn on 08-24-2024 Globulin (S) [Mass/Vol] 3.8 g/dL 2.2-4.2 [facility] Serum glucose measurement (m ass/volume)Ordered By: Sourav Finn on 08-24-2024 Glucose [Mass/Vol] 115 mg/dL High 70-99 [facility] Serum or plasma alanine brewer otransferase (ALT) measurementOrdered By: Sourav Finn on 08-24-2024 ALT [Catalytic activity/Vol] 5 U/L <35 [facility] Serum or plasma albumin meka urement (mass/volume)Ordered By: Sourav Finn on 08-24-2024 Albumin [Mass/Vol] 3.5 g/dL 3.4-4.8 [facility] Serum or plasma alkaline anurag sphatase measurementOrdered By: Sourav Finn on 08-24-2024 ALP [Catalytic activity/Vol] 115 U/L High 35-104 [facility] Serum or plasma calcium meka urement (mass/volume)Ordered By: Sourav Finn on 08-24-2024 Calcium [Mass/Vol] 9.8 mg/dL 7.6-11.0 [facility] Serum or plasma urea nitroge n measurement (mass/volume)Ordered By: Sourav Finn on 08-24-2024 Urea nitrogen [Mass/Vol] 15 mg/dL 4-19 [facility] Sodium levelOrdered By: Marcus Finn on 08-24-2024 Sodium [Moles/Vol] 138 mmol/L 133-145 [facility] Total proteinOrdered By: Robert Finn on 08-24-2024 Protein [Mass/Vol] 7.3 g/dL 5.9-8.4 [facility] White blood cell (WBC) count Ordered By: Sourav Finn on 08-24-2024 WBC (Bld) [#/Vol] 14.3 10*3/uL High 4.4-11.0 [facility] Respiratory Cultureon 2024 RESPC #2 IDENTIFIED AT [facility] Copy of report sent to Infection Control Printer [id number] 08/11/24 1119 BLUCAS. Streptococcus pneumoniae Amount Growth 2+ Aspergillus fumigatus Amount Growth Very Rare * This is an amended result. * A prior result that was reported as final has been changed. 07/25/24 0918 by KIM * This is an amended result. * A prior result that was reported as final has been changed. 08/11/24 1120 by ROSALBA Streptococcus pneumoniae: REACTION Cefotaxime Islt LYNDSEY 0.25 S Cefotaxime Islt LYNDSEY 0.25 S cefTRIAXone Islt LYNDSEY 0.25 S cefTRIAXone Islt LYNDSEY 0.25 S Clindamycin Islt LYNDSEY >=1 R Erythromycin Islt LYNDSEY >=8 R levoFLOXacin Islt LYNDSEY 0.5 S Moxifloxacin Islt LYNDSEY 0.12 S TMP SMX Islt LYNDSEY >=320 R Vancomycin Islt LYNDSEY <=0.12 S Penicillin Islt LYNDSEY 0.5 R Penicillin Islt LYNDSEY 0.5 S Penicillin Islt LYNDSEY 0.5 I Normal [facility] Comment on above: Performed By: #### L 504.2610, L501.5200, L503.6030, L100.0100, L500.4050, L501.2300, L503.6550, L503.0106 #### [facility] [address] [place], [address] Pulmonary Visit Reporton Pulmonary Visit Report [facility] of [address] [place] [address] OFFICE VISIT Date of Service: 08/10/24 MR#: [id number] Acct: [id number] Name: ASHLEE MILLER Karolyn Rep #: [id number] : 1950 Provider: Kaylie Ames NP Age/Sex: 73/F Location: [facility] [place] Status: Signed Assessment and Plan Assessment and Plan (1) Lung nodule: Status: Acute Comment: 2.2 x 2.4 cm right apical left lower lobe Plan: PET positive lesion identified with a negative quantiferon gold but a positive aspergillosis antibody and possible fungus noted on sputum sample. The patient has started treatment for aspergilloma with voriconazole. This case was discussed with Dr. Vega today and the recommendation is to proceed with repeating chest CT in 3 months. The PET scan was likely positive due to the aspergillosis that has been identified. Given patient's history of breast malignancy and continued smoking close monitoring is warranted. 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: Status: Chronic Comment: FEV1 35%, Alpha-1 normal Plan: End-stage. I have recommended beginning Daliresp and have chosen the lower dose due to her BMI. She has been educated about the potential side effects and should notify this practice if they occur. Continue current maintenance medication, on triple therapy with use of Breztri. Continue prophylactic azithromycin Thursday, Thursday and Thursday weekly. Continue on prednisone 10 mg daily. In the past, palliative referral was ordered on 2 separate occasions, the patient did not follow-up. Contact the office for any new or worsening symptoms. In the past the patient did not feel a benefit with the prednisone burst. She does understand that the albuterol should be spaced out to every 4 hours which will likely help with the tachycardia that is seen on today's evaluation. (3) Respiratory failure with hypoxia: Status: Chronic Qualifiers: Chronicity: chronic Qualified Code(s): J96.11 - Chronic respiratory failure with hypoxia Plan: The patient is using and benefiting from oxygen. Continue to utilize to maintain a saturation of 89-92%. 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 Work on increasing daily caloric intake. Orders: Orders Chest without Contrast 3 Months R91.1 - Solitary pulmonary nodule Medications: New roflumilast (Daliresp) 250 mcg PO QDAY 30 tabs 5RF Plan Details Follow Up: 4 Months (LMR) HPI HPI Comments Details: This 73 year old patient presents to the office today for follow-up of her stage IV very severe COPD with chronic hypoxic respiratory failure. She is ambulatory and currently on supplemental oxygen. She is accompanied today by her . She was last seen in the ED on 03/29/24 for a closed right humeral fracture. She has not required any antibiotics or prednisone for any breathing problems since last follow up. The patient reports that she has been compliant with supplemental oxygen. She typically uses 5 L/min. She states that sometimes the portable oxygen concentrator does not go high enough when she becomes exerted. She is basing this off of the degree of shortness of breath she experiences on exertion. She will typically use 3 L at home. She is compliant Breztri 2 puffs twice daily. She does report rinsing her mouth out after each use. She denies any medication side effect such as sore throat or thrush. She is compliant with Mucinex daily with water. She is using azithromycin 250 mg Thursday, Thursday and Thursday weekly. She is using prednisone 10 mg daily. Albuterol HFA 2-3 times per day and Albuterol nebulized 2-3 She does have shortness of breath that is worse with exertion, she feels that this has worsened in the last few days. She has a cough that is productive of yellow-colored sputum, 1/2 cup without foul taste or smell. She denies wheeze but is reporting chest tightness. She denies any chest pain or palpitations. She has not had any fever, chills or body aches. She is currently smoking 1 a pack over 2 to 3 days. LDCT from July 01, 2024 shows a new moderate left pleural parenchymal cavitary opacity extending from the left lung apex to the superior segment and posterior left lower lobe. Quantiferon gold was negative from July 06, 2024 She had a sputum sample on July 26 which showed Streptococcus pneumoniae and possible fungus. I did then order Aspergillus antibodies and she was positive so was referred to ID for treatment. She has since been seen by infectious disease and has been started on voriconazole 150 mg twice daily. She reports that her urine is clear since starting the new medication. She was seen by him on July 28, 2024. Documentation reviewed with patient today includes: PET scan from July 26, 2024 shows left upper lobe pl (more content not included)... Normal [facility] Aspergillus Antibodieson Asp. flavus 1:1 Abnormal Neg:<1:1 [facility] Comment on above: Performed By: #### L 504.2610, L501.5200, L503.6030, L100.0100, L500.4050, L501.2300, L503.6550, L503.0106 #### [facility] [address] [place], [address] Asp. fumigatus 1:16 Abnormal Neg:<1:1 [facility] Comment on above: Performed By: #### L 504.2610, L501.5200, L503.6030, L100.0100, L500.4050, L501.2300, L503.6550, L503.0106 #### [facility] [address] [place], [address] Asp. niger 1:1 Abnormal Neg:<1:1 [facility] Comment on above: Result Comment: Perf ormed at: - [facility] [id number] [employer] Operator: Summer Sims MD, Phone: [phone] Performed By: #### L 504.2610, L501.5200, L503.6030, L100.0100, L500.4050, L501.2300, L503.6550, L503.0106 #### [facility] [address] [place], [address] PET/CT Tumor Base -Thigh Ini ton 07-26-2024 PET/CT Tumor Base -Thigh Init [facility] [address] [place] [address] PET/CT Tumor Base -Thigh Init MR#: [id number] Acct: [id number] Name: ASHLEE MILLER Rep #: [id number] : 1950 F 73 From: Yuri Luong PCP: Dr. Deshawn Torrez MD Status: REG RCR Study: PET/CT Tumor Base -Thigh Init Date of Exam: Exam# [id number] Ordering Dr: Donald Park MD ADDENDUM by Dr. Yuri Kearns MD on 08/11/24 at 1307 Correction: The study was performed from the level of the skull base to the mid thigh. Reading Location: [id number] 08/11/24 1307 Date cc: Dr. Donald Park MD; Dr. Deshawn Torrez MD * Signed EXAM: Whole-body F-18 FDG PET-CT. CLINICAL HISTORY: Left lower lung nodule. Current smoker. COMPARISON: None provided. TECHNIQUE: Whole-body F-18 FDG PET-CT. FINDINGS: Biapical pleural-parenchymal scarring is seen, left much greater than right. Marked areas of superior left pleural thickening and posterior upper lobe soft tissue density noted. In these areas left sided pleural and parenchymal densities, hypermetabolic activity is seen. SUV max at the parenchymal left lower lobe area demonstrates SUV max 4.7. The area of greatest left pleural hypermetabolic activity is noted posteromedially, with SUV max 5.4. Both of these areas show differential diagnosis of malignancy and infection. Can not exclude the presence of an empyema. At the posteromedial right upper lobe, subcentimeter nodule is seen, with SUV max of 1.4. This is of uncertain significance. No abdominal or pelvic cervical areas of abnormal hypermetabolic activity are seen. Additional: Multiple small nonobstructive right renal calculi are seen. Prominent aortic calcification is seen; no evidence of abdominal aortic aneurysm. Prominent coronary artery calcification noted. Simple appearing left adnexal cyst. Prominent degenerative changes of the cervical spine are noted. PET/PET/CT Tumor Base -Thigh Init IMPRESSION: 1. Left upper lobe pleural and parenchymal irregular densities, with significant hypermetabolic associated activity. Differential diagnosis includes malignancy and infection. Cannot exclude the presence of an empyema, given the appearance, as well. 2. Nonspecific subcentimeter posteromedial right upper lobe nodule. 3. Additional findings as described. Reading Location: [address] CC: Dr. Donald Park MD; Dr. Deshawn Torrez MD [employer] Supervisor: Signed Normal [facility] Gram Stainon 07-21-2024 GS Acceptable Specimen? Yes (<25 Epithelial cells per/lpf) Gram Stain 4+ White Blood Cells No Epithelial cells 3+ Gram positive diplococci Normal [facility] Comment on above: Performed By: #### L 504.2610, L501.5200, L503.6030, L100.0100, L500.4050, L501.2300, L503.6550, L503.0106 #### [facility] [place], [address] A. flavus Ab Immune diff Ql (S)Ordered By: FARZAD Ames on 07-20-2024 Aspergillus flavus Antibody 1:1 High Neg:<1:1 [facility] A. fumigatus Ab Immune diff Ql (S)Ordered By: AFRZAD Ames on 07-20-2024 Aspergillus fumigatus Antibody 1:16 High Neg:<1:1 [facility] A. niger Ab Immune diff Ql ( S)Ordered By: FARZAD Ames on 07-20-2024 Aspergillus niger Antibody 1:1 High Neg:<1:1 [facility] Comment on above: Performed at: [address] [id number] Director: Summer Sims MD, Phone: [phone] Absolute lymphocyte countOrd ered By: FARZAD Amse on 07-20-2024 Lymphocytes Auto (Unsp spec) [#/Vol] 1.58 10*3/uL 0.83-4.51 [facility] Absolute neutrophil countOrd ered By: FARZAD Ames on 07-20-2024 Neutrophils (Bld) [#/Vol] 11.2 10*3/uL High 2.0-7.7 [facility] Automated lymphocyte count a s percentage of total leukocytesOrdered By: FARZAD Ames on 07-20-2024 Lymphocytes/100 WBC Auto (Unsp spec) 11.4 % Low 19-41 [facility] Basophil percentageOrdered B y: FARZAD Ames on 07-20-2024 Basophils/100 WBC (Bld) 0.6 % 0-1 [facility] CBC W/Diff, Automatedon 06-23 Absolute Lymph 1.58 X10 3/uL Normal 0.83-4.51 [facility] Comment on above: Performed By: #### L 504.2610, L501.5200, L503.6030, L100.0100, L500.4050, L501.2300, L503.6550, L503.0106 #### [facility] [address] [place], [address] Absolute Neut 11.2 X10 3/uL High 2.0-7.7 [facility] Comment on above: Performed By: #### L 504.2610, L501.5200, L503.6030, L100.0100, L500.4050, L501.2300, L503.6550, L503.0106 #### [facility] [address] [place], [address] Basophils/100 WBC (Bld) 0.6 % Normal 0-1 [facility] Comment on above: Performed By: #### L 504.2610, L501.5200, L503.6030, L100.0100, L500.4050, L501.2300, L503.6550, L503.0106 #### [facility] [address] [place], [address] Eosinophils/100 WBC (Bld) 0.6 % Normal 0-5 [facility] Comment on above: Performed By: #### L 504.2610, L501.5200, L503.6030, L100.0100, L500.4050, L501.2300, L503.6550, L503.0106 #### [facility] [address] [place], [address] Erythrocyte distribution width (RBC) [Ratio] 14.6 % Normal 11.6-14.6 [facility] Comment on above: Performed By: #### L 504.2610, L501.5200, L503.6030, L100.0100, L500.4050, L501.2300, L503.6550, L503.0106 #### [facility] [address] [place], [address] Hematocrit (Bld) [Volume fraction] 30.8 % Low 37-47 [facility] Comment on above: Performed By: #### L 504.2610, L501.5200, L503.6030, L100.0100, L500.4050, L501.2300, L503.6550, L503.0106 #### [facility] [address] [place], [address] Hemoglobin (Bld) [Mass/Vol] 9.0 g/dL Low 12.0-15.0 [facility] Comment on above: Performed By: #### L 504.2610, L501.5200, L503.6030, L100.0100, L500.4050, L501.2300, L503.6550, L503.0106 #### [facility] [address] [place], [address] (669 IG% 0.800 Normal 0.0-0.9 [facility] Comment on above: Result Comment: IG% - Immature Granulocytes (promyelocytes, myelocytes and metamyelocytes) > 1% indicates that a LEFT SHIFT is Present. Performed By: #### L 504.2610, L501.5200, L503.6030, L100.0100, L500.4050, L501.2300, L503.6550, L503.0106 #### [facility] [address] [place], [address] Lymphocytes/100 WBC (Bld) 11.4 % Low 19-41 [facility] Comment on above: Performed By: #### L 504.2610, L501.5200, L503.6030, L100.0100, L500.4050, L501.2300, L503.6550, L503.0106 #### [facility] [address] [place], [address] MCH (RBC) [Entitic mass] 23.9 pg Low 27.0-32.0 [facility] Comment on above: Performed By: #### L 504.2610, L501.5200, L503.6030, L100.0100, L500.4050, L501.2300, L503.6550, L503.0106 #### [facility] [address] [place], [address] MCHC (RBC) [Mass/Vol] 29.2 g/dL Low 32-36 [facility] Comment on above: Performed By: #### L 504.2610, L501.5200, L503.6030, L100.0100, L500.4050, L501.2300, L503.6550, L503.0106 #### [facility] [address] [place], [address] MCV (RBC) [Entitic vol] 81.7 fL Normal 81-99 [facility] Comment on above: Performed By: #### L 504.2610, L501.5200, L503.6030, L100.0100, L500.4050, L501.2300, L503.6550, L503.0106 #### [facility] [address] [place], [address] Monocytes/100 WBC (Bld) 5.9 % Normal 0-10 [facility] Comment on above: Performed By: #### L 504.2610, L501.5200, L503.6030, L100.0100, L500.4050, L501.2300, L503.6550, L503.0106 #### [facility] [address] [facility] [place], [address] Neutrophils/100 WBC (Bld) 80.7 % High 47-70 [facility] Comment on above: Performed By: #### L 504.2610, L501.5200, L503.6030, L100.0100, L500.4050, L501.2300, L503.6550, L503.0106 #### [facility] [address] [place], [address] Nucleated RBC (Bld) [#/Vol] 0 10*3/uL Normal 0-5 [facility] Comment on above: Performed By: #### L 504.2610, L501.5200, L503.6030, L100.0100, L500.4050, L501.2300, L503.6550, L503.0106 #### [facility] [address] [place], [address] Platelet mean volume (Bld) [Entitic vol] 8.0 fL Normal 6.2-12.0 [facility] Comment on above: Performed By: #### L 504.2610, L501.5200, L503.6030, L100.0100, L500.4050, L501.2300, L503.6550, L503.0106 #### [facility] [address] [place], [address] Platelets (Bld) [#/Vol] 509 10*3/uL High 150-450 [facility] Comment on above: Performed By: #### L 504.2610, L501.5200, L503.6030, L100.0100, L500.4050, L501.2300, L503.6550, L503.0106 #### [facility] [address] [place], [address] RBC (Bld) [#/Vol] 3.77 10*6/uL Low 4.2-5.4 [facility] Comment on above: Performed By: #### L 504.2610, L501.5200, L503.6030, L100.0100, L500.4050, L501.2300, L503.6550, L503.0106 #### [facility] [address] [place], [address] RDW SD 43.0 fl Normal 35.1-43.9 [facility] Comment on above: Performed By: #### L 504.2610, L501.5200, L503.6030, L100.0100, L500.4050, L501.2300, L503.6550, L503.0106 #### [facility] [address], [address] WBC (Bld) [#/Vol] 13.8 10*3/uL High 4.4-11.0 [facility] Comment on above: Performed By: #### L 504.2610, L501.5200, L503.6030, L100.0100, L500.4050, L501.2300, L503.6550, L503.0106 #### [facility] [address] [facility] [place], [place], [id number] Eosinophil percentageOrdered By: FARZAD Ames on 07-20-2024 Eosinophils/100 WBC (Bld) 0.6 % 0-5 [facility] Erythrocyte distribution wid th ratioOrdered By: FARZAD Ames on 07-20-2024 Erythrocyte distribution width (RBC) [Ratio] 14.6 % 11.6-14.6 [facility] Erythrocyte distribution wid th standard deviationOrdered By: FARZAD Ames on 07-20-2024 Erythrocyte distribution width (RBC) [Entitic vol] 43.0 fL 35.1-43.9 [facility] Erythrocyte distribution width (RBC) [Ratio] 43.0 fl 35.1-43.9 [facility] Gram stainOrdered By: FARZAD Ames on 07-20-2024 Microscopic observation Gram stain Nom (Unsp spec) [facility] Hematocrit Auto (Bld) [Volum e fraction]Ordered By: FARZAD Ames on 07-20-2024 Hematocrit (Bld) [Volume fraction] 30.8 % Low 37-47 [facility] Hemoglobin measurementOrdere d By: FARZAD Ames on 07-20-2024 Hemoglobin (Bld) [Mass/Vol] 9.0 g/dL Low 12.0-15.0 [facility] Immature granulocytes/100 WB C Auto (Bld)Ordered By: FARZAD Ames on 07-20-2024 Immature granulocytes/100 WBC (Bld) 0.800 % 0.0-0.9 [facility] Comment on above: IG% - Immature Granu locytes (promyelocytes, myelocytes and metamyelocytes) > 1% indicates that a LEFT SHIFT is Present. Lymphocytes Auto (Unsp spec) [#/Vol]Ordered By: FARZAD Ames on 07-20-2024 Lymphocytes (Bld) [#/Vol] 1.58 10*3/uL 0.83-4.51 [facility] Lymphocytes/100 WBC Auto (Un sp spec)Ordered By: FARZAD Ames on 07-20-2024 Lymphocytes/100 WBC (Bld) 11.4 % Low 19-41 [facility] MCV (mean corpuscular volume ) determinationOrdered By: FARZAD Ames on 07-20-2024 MCV (RBC) [Entitic vol] 81.7 fL 81-99 [facility] Mean corpuscular hemoglobin (MCH) determinationOrdered By: FARZAD Ames on 07-20-2024 MCH (RBC) [Entitic mass] 23.9 pg Low 27.0-32.0 [facility] Mean corpuscular hemoglobin concentration (MCHC) determinationOrdered By: FARZAD Ames on 07-20-2024 MCHC (RBC) [Mass/Vol] 29.2 g/dL Low 32-36 [facility] Mean platelet volume determi nationOrdered By: FARZAD Ames on 07-20-2024 Platelet mean volume (Bld) [Entitic vol] 8.0 fL 6.2-12.0 [facility] Microbial respiratory cultur eOrdered By: FARZAD Ames on 07-20-2024 Microorganism identified Cx Nom (Unsp spec) Streptococcus pneumoniae Abnormal [facility] Microorganism identified Cx Nom (Unsp spec) Aspergillus fumigatus Abnormal [facility] Microorganism identified Cx Nom (Unsp spec)Ordered By: FARZAD Ames on 07-20-2024 Respiratory Culture Streptococcus pneumoniae Abnormal [facility] Respiratory Culture Aspergillus fumigatus Abnormal [facility] Monocyte percentageOrdered B y: FARZAD Ames on 07-20-2024 Monocytes/100 WBC (Bld) 5.9 % 0-10 [facility] Neutrophil percentageOrdered By: FARZAD Ames on 07-20-2024 Neutrophils/100 WBC (Bld) 80.7 % High 47-70 [facility] Nucleated red blood cell per centageOrdered By: FARZAD Ames on 07-20-2024 Nucleated RBC/100 WBC (Bld) [Ratio] 0 % 0-5 [facility] Platelet countOrdered By: FARZAD Ames on 07-20-2024 Platelets (Bld) [#/Vol] 509 10*3/uL High 150-450 [facility] Pulmonary Visit Reporton Pulmonary Visit Report [facility] [place] [address] [place] [address] OFFICE VISIT Date of Service: 07/20/24 MR#: [id number] Acct: [id number] Name: ASHLEE MILLER Rep #: [id number] : 1950 Provider: Kaylie Ames NP Age/Sex: 73/F Location: [facility] [place] Status: Signed Assessment and Plan Assessment and Plan (1) Lung nodule: Status: Acute Comment: 2.2 x 2.4 cm right apical left lower lobe Plan: New lesion identified with a negative quantiferon gold, the differential diagnosis does include malignancy with a history of breast malignancy and COPD, obtain PET/CT. Lab work for aspergillosis/CBC with differential is a fungal pneumonia with aspergilloma is also in the differential. 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: Status: Chronic Comment: FEV1 35%, Alpha-1 normal Plan: End-stage. She does appear to be an exacerbation of COPD today. She will be treated with prednisone and antibiotics. Continue current maintenance medication, on triple therapy with use of Breztri. Continue prophylactic azithromycin Thursday, Thursday and Thursday weekly. She will hold prednisone 10 mg daily while on the prednisone burst and then resume. In the past, palliative referral was ordered on 2 separate occasions, the patient did not follow-up. Contact the office for any new or worsening symptoms. (3) Respiratory failure with hypoxia: Status: Chronic Qualifiers: Chronicity: chronic Qualified Code(s): J96.11 - Chronic respiratory failure with hypoxia Plan: The patient is using and benefiting from oxygen. Continue to utilize to maintain a saturation of 89-92%. 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 Diet was discussed today. The patient does have high-calorie supplement drinks available but is not utilizing them. I encouraged her to proceed with adding these into her daily regimen. (5) Cough: Status: Acute Plan: Suspecting COPD exacerbation and treating for this today. Await lab work, sputum for smear and culture and PET/CT as ordered Orders: Orders Aspergillus Antibodies Today R05.9 - Cough, unspecified CBC W/Diff, Automated Today R05.9 - Cough, unspecified Culture, Sputum Today R05.9 - Cough, unspecified PET/CT Tumor Base -Thigh Init Today R91.1 - Solitary pulmonary nodule Medications: New amoxicillin-pot clavulanate 875-125 mg 1 TAB PO BID 14 tabs 0RF R91.1 - Solitary pulmonary nodule prednisone Hold prednisone 10 mg daily and begin this prescription. Take 2 tablets daily for 4 days then 1 tablet daily for 2 days. Then return to the prednisone 10mg daily prescription. 20 mg PO QDAY 10 tabs 0RF R91.1 - Solitary pulmonary nodule Plan Details Follow Up: 4 Weeks (LMR) HPI HPI Comments Details: This 73 year old patient presents to the office today for follow-up of her stage IV very severe COPD with chronic hypoxic respiratory failure. She is ambulatory and currently on supplemental oxygen. She is accompanied today by her . She was last seen in the ED on 03/29/24 for a closed right humeral fracture. She has not required any antibiotics or prednisone for any breathing problems since last follow up. The patient reports that she has been compliant with supplemental oxygen. She typically uses 5 L/min. She states that sometimes the portable oxygen concentrator does not go high enough when she becomes exerted. She is basing this off of the degree of shortness of breath she experiences on exertion. She is compliant Breztri 2 puffs twice daily. She does report rinsing her mouth out after each use. She denies any medication side effect such as sore throat or thrush. She is compliant with Mucinex daily with water. She is using azithromycin 250 mg Thursday, Thursday and Thursday weekly. She is using prednisone 10 mg daily. She does have shortness of breath that is worse with exertion, she feels that this has worsened in the last few days. She has a cough that is productive of yellow-colored sputum, 1/4 cup without foul taste or smell. She has occasional wheezing and chest tightness/heaviness but denies any chest pain or palpitations. She has not had any fever, chills or body aches. She is currently smoking 1/2 pack/day. Documentation reviewed with patient today includes: LDCT from July 01, 2024 shows a new moderate left pleural parenchymal cavitary opacity extending from the left lung apex to the superior segment and posterior left lower lobe. Quantiferon gold was negative from July 06, 2024 Intake Vital Signs 01/19/24 07:38 03/29/24 17:47 07/20/24 06:31 Height 5 ft 3 in 5 ft 3 in 5 ft 3 in Weight: 70 lb BMI 12.4 BP 107/58 L Blood Pressure Location Lt brachial Position Sitting Respiration 20 H Pulse 111 H Pulse Source Nithya (more content not included)... Normal [facility] RBC Auto (Bld) [#/Vol]Ordere d By: FARZAD Ames on 07-20-2024 RBC (Bld) [#/Vol] 3.77 10*6/uL Low 4.2-5.4 [facility] Serum Aspergillus flavus ant ibody detection by immunodiffusionOrdered By: FARZAD Ames on 07-20-2024 A. flavus Ab Immune diff Ql (S) 1:1 High Neg:<1:1 [facility] Serum Aspergillus fumigatus antibody detection by immunodiffusionOrdered By: FARZAD Ames on 07-20-2024 A. fumigatus Ab Immune diff Ql (S) 1:16 High Neg:<1:1 [facility] Serum Aspergillus niger anti body detection by immunodiffusionOrdered By: FARZAD Ames on 07-20-2024 A. niger Ab Immune diff Ql (S) 1:1 High Neg:<1:1 [facility] Comment on above: Performed at: [facility] [address] [place], [place] [id number] Director: Summer Sims MD, Phone: [phone] White blood cell (WBC) count Ordered By: FARZAD Kaylie Dineshnathen on 07-20-2024 WBC (Bld) [#/Vol] 13.8 10*3/uL High 4.4-11.0 [facility] Quantiferon TB-Gold+on 07-08 QFT MITOGEN OFE 0.57 IU/mL Normal . [facility] Comment on above: Performed By: #### L 100.0100, L500.4050 #### [facility] [address] [place], [address] QFT NIL VALUE 0 IU/mL Normal . [facility] Comment on above: Performed By: #### L 100.0100, L500.4050 #### [facility] [address] [place], [address] QFT TB GOLD+ Comment Normal . [facility] Comment on above: Result Comment: Wm tiFERON-TB Gold Plus is a qualitative indirect test for M tuberculosis infection (including disease) and is intended for use in conjunction with risk assessment, radiography, and other medical and diagnostic evaluations. The QuantiFERON-TB Gold Plus result is determined by subtracting the Nil value from either TB antigen (Ag) value. The Mitogen tube serves as a control for the test. Performed By: #### L 100.0100, L500.4050 #### [facility] [address] [place], [address] QFT TB POS CRIT Negative Normal Negative [facility] Comment on above: Result Comment: No r esponse to M tuberculosis antigens detected. Infection with M tuberculosis is unlikely, but high risk individuals should be considered for additional testing (ATS/IDSA/CDC Clinical Practice Guidelines, 2017). The reference range is an Antigen minus Nil result of <0.35 IU/mL. The specimen received for QuantiFERON testing was incubated by the ordering institution. Specific procedures outlined in our Directory of Services and in the package insert for the QuantiFERON Gold (In Tube) test must be followed to enable for proper stimulation of cells for the production of interferon gamma. Chemiluminescence immunoassay methodology Performed at: [address] [id number] [employer] Operator: Dakota Denise PhD, Phone: [phone] Performed By: #### L 100.0100, L500.4050 #### [facility] [address] [place], [place], [address] QFT TB1+ AG OFE 0 IU/mL Normal . [facility] Comment on above: Performed By: #### L 100.0100, L500.4050 #### [facility] [address] [place], [place], [address] QFT TB2+ AG OFE 0 IU/mL Normal . [facility] Comment on above: Performed By: #### L 100.0100, L500.4050 #### [facility] [address] [place], [place], [address] M. tuberculosis tuberculin s susanna IFN-g Ql (Bld)Ordered By: FARZAD Ames on 07-06-2024 TB Test (QFT) Antigen 1 0 IU/mL . [facility] Qualitative QuantiFERON-TB g old in tube testOrdered By: FARZAD Ames on 07-06-2024 M. tuberculosis tuberculin stim IFN-g Ql (Bld) 0 IU/mL . [facility] Quantiferon-TB Gold Plus nelsy tOrdered By: FARZAD Ames on 07-06-2024 TB Test (QFT) Comment . [facility] Comment on above: QuantiFERON-TB Gold Plus is a qualitative indirect test forM tuberculosis infection (including disease) and isintended for use in conjunction with risk assessment,radiography, and other medical and diagnostic evaluations.The QuantiFERON-TB Gold Plus result is determined bysubtracting the Nil value from either TB antigen (Ag)value. The Mitogen tube serves as a control for the test. TB Test (QFT) Antigen 2 0 IU/mL . [facility] TB Test (QFT) Mitogen 0.57 IU/mL . [facility] TB Test (QFT) Nil 0 IU/mL . [facility] TB Test (QFT) Positive Criteria Negative Negative [facility] Comment on above: No response to M tub erculosis antigens detected.Infection with M tuberculosis is unlikely, but high riskindividuals should be considered for additional testing(ATS/IDSA/CDC Clinical Practice Guidelines, 2017). Thereference range is an Antigen minus Nil result of <0.35IU/mL.The specimen received for QuantiFERON testing was incubatedby the ordering institution. Specific procedures outlinedin our Directory of Services and in the package insert forthe QuantiFERON Gold (In Tube) test must be followed toenable for proper stimulation of cells for the productionof interferon gamma. Chemiluminescence immunoassaymethodologyPerformed at: [place] [id number] Director: Dakota Denise PhD, Phone: [phone] Low Dose CT Lung Screeningon 07-01-[address] Lung Screening [facility] Imaging Services [address] [place] [address] Lung Screening MR#: [id number] Acct: [id number] Name: ASHLEE MILLER Rep #: [id number] : 1950 F 73 From: Otilia hendrickson MD PCP: LARRY Garcia Status: [facility] Study: Low Dose CT Lung Screening Date of Exam: 07/01 Exam# [id number] Ordering Dr: Swetha Lawrence NP EL TEACHER-C ADDENDUM by Dr. Otilia Antunez MD on 07/03/24 at 1441 [id number] HISTORY: smoker, hx breast cancer. TECHNIQUE: Helically acquired images were obtained of the chest without contrast. A radiation dose optimization technique was used for this scan. 808 images. COMPARISON: 11/23/2023, 06/05/2023. FINDINGS: LARGE AIRWAYS: Patent. LUNGS: Severe bullous emphysema with apical and peripheral scarring. Stable 6 mm irregular right upper lobe nodule medially. Suture of the left apex. New left pleural-parenchymal opacity with a thick-walled cavitary appearance measuring up to 2.2 x 2.4 cm in the right apical left lower lobe and intracavitary soft tissue component. Associated air bronchograms extending into the posterior consolidation in the left lower lobe. PLEURA: No pneumothorax or significant pleural effusion. HEART/PERICARDIUM: Heart within normal limits in size with coronary artery calcification. No pericardial effusion. VESSELS: Thoracic aorta nondilated. Mild atherosclerosis. MEDIASTINUM/SURAJ: No pathologically enlarged adenopathy. BONES: Mild periosteal reaction of the left seventh through ninth ribs posteriorly. Osteopenia and degenerative change. 07/03/24 1441 Date cc: LARRY Lawrence; LARRY Suarez * Signed ADDENDUM by Dr. Otilia Antunez MD on 07/03/[address]/Low Dose CT Lung Screening IMPRESSION: New moderate left pleural-parenchymal cavitary opacity extending from the left lung apex to the superior segment and posterior left lower lobe with mild periosteal reaction of the adjacent ribs. Diagnostic considerations include neoplasm in a patient with history of breast cancer and COPD, fungal pneumonia with aspergilloma, or mycobacterial infection such as tuberculosis. Recommend close short-term interval follow-up CT, PET-CT, and/or tissue diagnosis. Left apical postoperative change. Severe bullous emphysema with stable irregular 6 cm right upper lobe nodule. N.B. : Marley Mora RN, confirmed on 07/04/2024 10:50:04 (ET) that the healthcare facility has received the radiology report. Electronically Signed: Otilia Antunez MD at 14:41 EST , 07/04/24 1057 Date cc: LARRY Lawrence; LARRY Suarez * Signed ACR Level 3 findings have been noted. An addendum which confirms receipt of the report will follow. [id number] HISTORY: smoker, hx breast cancer. TECHNIQUE: Helically acquired images were obtained of the chest without contrast. A radiation dose optimization technique was used for this scan. 808 images. COMPARISON: 11/23/2023, 06/05/2023. FINDINGS: LARGE AIRWAYS: Patent. LUNGS: Severe bullous emphysema with apical and peripheral scarring. Stable 6 mm irregular right upper lobe nodule medially. Suture of the left apex. New left pleural-parenchymal opacity with a thick-walled cavitary appearance measuring up to 2.2 x 2.4 cm in the right apical left lower lobe and intracavitary soft tissue component. Associated air bronchograms extending into the posterior consolidation in the left lower lobe. PLEURA: No pneumothorax or significant pleural effusion. HEART/PERICARDIUM: Heart within normal limits in size with coronary artery calcification. No pericardial effusion. VESSELS: Thoracic aorta nondilated. Mild atherosclerosis. MEDIASTINUM/SURAJ: No pathologically enlarged adenopathy. BONES: Mild periosteal reaction of the left seventh through ninth ribs posteriorly. Osteopenia and degenerative change. CT/Low Dose CT Lung Screening IMPRESSION: New moderate left pleural-parenchymal cavitary opacity extending from the left lung apex to the superior segment and posterior left lower lobe with mild periosteal reaction of the adjacent ribs. Diagnostic considerations include neoplasm in a patient with history of breast cancer and COPD, fungal pneumonia with aspergilloma, or mycobacterial infection such as tuberculosis. Recommend close short-term interval follow-up CT, PET-CT, and/or tissue diagnosis. Left apical postoperative change. Severe bullous emphysema with stable irregular 6 cm right upper lobe nodule. Electronically Signed: Otilia Antunez MD at 14:41 EST Reading Location ID and State: [id number] (more content not included)... Normal [facility] Inital Evaluation (1) - PTon 06-10-2024 Inital Evaluation (1) - PT [facility] Physical Therapy [facility] [address] [place] [address]. [address] [place] [address] / REHABILITATION SERVICES INITIAL EVALUATION MR#: [id number] Acct: [id number] Name: PAULASHLEE Rep #: [id number] : 1950 73 From: Robert Johasnen DPT, OCS, CSCS Referring Dr.: Dr. Del Salamanca MD Status: RE G RCR Insurance: [employer] Patient's Visit Information Visit Information Visit Information: ASHLEE MILLER is a 73 year old F referred to Physical Therapy by Dr. Del Salamanca MD with a diagnosis of R humeral fracture. Date of Evaluation: 06/10/24 Physical Therapist: Robert Johansen DPT, OCS, CSCS Visit Plan Frequency: Every Other Week Duration: 4-6 Weeks Plan: every other week(pt choice vs more frequent) for progression of AAROM to AROM and strength ex. IE HEP supine stick flexion and supine stick er 10x 3x/day with pics and expectations Subjective Subjective: Dr. Salamanca sent due to broken humerus top of R shoulder. That was 03/29 and she tripped over oxygen cord and landed on R arm. Hurt immediately and went to ER that night and x ray showed fracture adn put in sling. Made appointment with Cheikh. Now it has been 10 weeks and looking good according to patient from doctor. Has some pain she takes tylenol one time day. Sometimes hurts at rest. Supposed to not sleep on it but rolls on it at night and it wakes her up. Getting 1-2 hrs at a time and that is more normal for her. On oxygen 100% 5l/min, COPD. Not employed. Activities : on phone and inactive. cooks but she can. Limited due to oxygen. 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 Dressing self with button down shirts, and does own pants and socks and shoes. Bath and bathroom I. No precautions, been out of sling for a month or so. Overall 50% better. Wants to Pain R shoulder: Pain Intensity (Out of 10): 0 Pain Intensity Range: 0 and 6 Objective Objective: Pushed back to PT in WC due to COPD/breathing. Walks 10 feet into room I carrying oxygen tank. trasnfers bed and chair I. cervical and scapular AROM WFL B, elbow and wrist AROM WNL B wi thout pain. L shoulder AROM flexion 145, er 58, IR L 4. R shoulder AROM 130 elevation, 38 er, L4 IR. Tender mildly anterior R shoulder. reflexes 2/3 bi and tri B. sensation UE WNL to gross light touch B UE. strength elevation 3 R and 3+ L, er 3+ L and 3 R, IR 4- B . Pain with elevation and er on R - ext rotation lag test, - drop arm, - sulcus, PROM 140 r shoulder elevation and 45 er with pain at end range. Balance/Special Test Scores Quick DASH Score: 43.1800 Goals Goal 1:: 148 aROM elevation R shoulder and 55 er to minimize future problems. Goal Time Frame: 4-6 Weeks Goal 2:: I appropriate strength and ROM for R shoulder to aid in reutrn to fucniton Goal Time Frame: 4-6 Weeks Goal 3:: Pt feel R shoulder 90% back to normal activity Goal Time Frame: 4-6 Weeks Goal 4:: quick dash17 or less Goal Time Frame: 4-6 Weeks Goal 5:: Do hair without difficulty. Goal Time Frame: 4-6 Weeks Rehabilitation Potential Physical Therapy Diagnosis: limited ROM and strength R arm post fracture. Rehabilitation Potential: Good Anticipated Interventions Patient/Client Instruction: Educate patient on: Condition and Plan of Care For the Purpose of:: To decrease pain, To increase ROM, To improve nutrient delivery to tissue and To increase tolerance to activity/condition/position Therapeutic Exercise to Include: Strength training, Postural training, Passive ROM and Active ROM For the Purpose of:: To decrease pain, To increase ROM, To improve nutrient delivery to tissue, To improve muscle performance and motor function and To increase tolerance to activity/condition/position Text: Thank you for the opportunity to evaluate your patient. For Medicare and Medicare HMO plans, please review the plan of care and approve it. It will need to be FAXED BACK to us at [phone] for Medicare purposes. For Medicare only, by signing this I certify the plan of care. Please let me know if there are questions or concerns regarding this plan of care. Physician Signature: Date: 06/10/24 1411 CC: LARRY Suarez; Dr. Del Salamanca MD EBG Signed Normal [facility] Absolute lymphocyte countOrd ered By: Donald Xavier on 01-04-2024 Lymphocytes Auto (Unsp spec) [#/Vol] 1.49 10*3/uL 0.83-4.51 [facility] Absolute neutrophil countOrd ered By: Donald Park on 01-04-2024 Neutrophils (Bld) [#/Vol] 7.8 10*3/uL High 2.0-7.7 [facility] Alanine aminotransferase (AL T) assayOrdered By: Donald Park on 01-04-2024 ALT [Catalytic activity/Vol] 15 U/L 13-56 [facility] Albumin to globulin ratioOrd ered By: Donald Park on 01-04-2024 Albumin/Globulin [Mass ratio] 1.0 {ratio} 0.9-2.4 [facility] Alkaline phosphataseOrdered By: Donald Park on 01-04-2024 ALP [Catalytic activity/Vol] 88 U/L 45-117 [facility] Automated lymphocyte count a s percentage of total leukocytesOrdered By: Donald Park on 01-04-2024 Lymphocytes/100 WBC Auto (Unsp spec) 14.6 % Low 19-41 [facility] Basophil percentageOrdered B y: Donald Park on 01-04-2024 Basophils/100 WBC (Bld) 1.1 % High 0-1 [facility] Bilirubin, totalOrdered By: Donald Park on 01-04-2024 Bilirubin [Mass/Vol] 0.20 mg/dL 0.20-1.00 [facility] Comment on above: For patients on eltr ombopag therapy, use of Dimension [place] TBIL is not recommended. Blood urea nitrogen (BUN)/cr eatinine ratioOrdered By: Donald Park on 01-04-2024 Urea nitrogen/Creatinine [Mass ratio] 35.1 mg/mg High 10-20 [facility] Carbon dioxide measurementOr dered By: Donald Park on 01-04-2024 CO2 [Moles/Vol] 30.0 mmol/L 21.0-32.0 [facility] Chloride measurementOrdered By: Donald Park on 01-04-2024 Chloride [Moles/Vol] 103 mmol/L 98-107 [facility] Eosinophil percentageOrdered By: Donald Park on 01-04-2024 Eosinophils/100 WBC (Bld) 1.0 % 0-5 [facility] [facility] Erythrocyte distribution wid th ratioOrdered By: Doanld Park on 01-04-2024 Erythrocyte distribution width (RBC) [Ratio] 13.6 % 11.6-14.6 [facility] Erythrocyte distribution wid th standard deviationOrdered By: Donald Park on 01-04-2024 Erythrocyte distribution width (RBC) [Entitic vol] 45.8 fL High 35.1-43.9 [facility] Erythrocyte distribution width (RBC) [Ratio] 45.8 fl High 35.1-43.9 [facility] Estimated glomerular filtrat ion rate (GFR) AmericanOrdered By: Donald Park on 01-04-2024 Estimated GFR (MDRD) Amer 127 mL/min >60 [facility] Comment on above: GFR Calc Estimation of creatinine hodan aranceOrdered By: Donald Park on 01-04-2024 Estimated Creatinine Clearance Calc 35.10 ml/min [facility] Glomerular filtration rate ( GFR) estimationOrdered By: Donald Park on 01-04-2024 Estimated GFR (MDRD) Non-Af Amer 105 mL/min >60 [facility] Comment on above: Non- GFR Calc GFR/1.73 sq M.predicted among non-blacks MDRD (S/P/Bld) [Vol rate/Area] 105 mL/min/{1.73_m2} >60 [facility] Comment on above: Non- GFR Calc Glucose measurementOrdered B y: Donald Park on 01-04-2024 Glucose [Mass/Vol] 93 mg/dL 74-106 [facility] Hematocrit Auto (Bld) [Volum e fraction]Ordered By: Donald Park on 01-04-2024 Hematocrit (Bld) [Volume fraction] 38.9 % 37-47 [facility] Hemoglobin measurementOrdere d By: Donald Park on 01-04-2024 Hemoglobin (Bld) [Mass/Vol] 12.0 g/dL 12.0-15.0 [facility] Immature granulocytes/100 WB C Auto (Bld)Ordered By: Donald Park on 01-04-2024 Immature granulocytes/100 WBC (Bld) 0.500 % 0.0-0.9 [facility] Comment on above: IG% - Immature Granu locytes (promyelocytes, myelocytes and metamyelocytes) > 1% indicates that a LEFT SHIFT is Present. Laboratory - Chemistry and C hemistry - challengeOrdered By: Donald Park on 01-04-2024 AST [Catalytic activity/Vol] 16 U/L 15-37 [facility] Lactate dehydrogenase (LDH) measurementOrdered By: Donald Park on 01-04-2024 LDH [Catalytic activity/Vol] 152 U/L 84-246 [facility] Lymphocytes Auto (Unsp spec) [#/Vol]Ordered By: Donald Park on 01-04-2024 Lymphocytes (Bld) [#/Vol] 1.49 10*3/uL 0.83-4.51 [facility] Lymphocytes/100 WBC Auto (Un sp spec)Ordered By: Donald Park on 01-04-2024 Lymphocytes/100 WBC (Bld) 14.6 % Low 19-41 [facility] MCV (mean corpuscular volume ) determinationOrdered By: Donald Park on 01-04-2024 MCV (RBC) [Entitic vol] 92.4 fL 81-99 [facility] Mean corpuscular hemoglobin (MCH) determinationOrdered By: Donald Park on 01-04-2024 MCH (RBC) [Entitic mass] 28.5 pg 27.0-32.0 [facility] Mean corpuscular hemoglobin concentration (MCHC) determinationOrdered By: Donald Park on 01-04-2024 MCHC (RBC) [Mass/Vol] 30.8 g/dL Low 32-36 [facility] Mean platelet volume determi nationOrdered By: Donald Park on 01-04-2024 Platelet mean volume (Bld) [Entitic vol] 8.7 fL 6.2-12.0 [facility] Monocyte percentageOrdered B y: Donald Park on 01-04-2024 Monocytes/100 WBC (Bld) 6.4 % 0-10 [facility] Neutrophil percentageOrdered By: Donald Park on 01-04-2024 Neutrophils/100 WBC (Bld) 76.4 % High 47-70 [facility] Nucleated red blood cell per centageOrdered By: Donald Park on 01-04-2024 Nucleated RBC/100 WBC (Bld) [Ratio] 0 % 0-5 [facility] Platelet countOrdered By: Romelia Park on 01-04-2024 Platelets (Bld) [#/Vol] 306 10*3/uL 150-450 [facility] Potassium measurementOrdered By: Donald Park on 01-04-2024 Potassium [Moles/Vol] 3.7 mmol/L 3.5-5.1 [facility] RBC Auto (Bld) [#/Vol]Ordere d By: Donald Park on 01-04-2024 RBC (Bld) [#/Vol] 4.21 10*6/uL 4.2-5.4 [facility] Serum albumin measurementOrd ered By: Donald Park on 01-04-2024 Albumin [Mass/Vol] 3.5 g/dL 3.2-5.0 [facility] Serum anion gap measurementO rdered By: Donald Park on 01-04-2024 Anion gap [Moles/Vol] 7 mmol/L 5-15 [facility] Serum globulin measurementOr dered By: Donald Park on 01-04-2024 Globulin (S) [Mass/Vol] 3.5 g/dL 2.2-4.2 [facility] Serum or plasma calcium meka urement (mass/volume)Ordered By: Donald Park on 01-04-2024 Calcium [Mass/Vol] 9.2 mg/dL 8.5-10.1 [facility] Serum or plasma creatinine m easurement (mass/volume)Ordered By: Donald Park on 01-04-2024 Creatinine [Mass/Vol] 0.60 mg/dL 0.55-1.02 [facility] Comment on above: The validity of the calculated GFR & GFRAA in patients over 70 years has not been determined. Clinical correlation is essential. Serum or plasma urea nitroge n measurement (mass/volume)Ordered By: Donald Park on 01-04-2024 Urea nitrogen [Mass/Vol] 21 mg/dL High 7-18 [facility] Sodium levelOrdered By: Tate Park on 01-04-2024 Sodium [Moles/Vol] 140 mmol/L 136-145 [facility] Total proteinOrdered By: Yariel Park on 01-04-2024 Protein [Mass/Vol] 7.0 g/dL 6.4-8.2 [facility] White blood cell (WBC) count Ordered By: Donald Park on 01-04-2024 WBC (Bld) [#/Vol] 10.2 10*3/uL 4.4-11.0 [facility] Absolute lymphocyte countOrd ered By: Lena Bauergar on 01-21-2023 Lymphocytes Auto (Unsp spec) [#/Vol] 1.94 10*3/uL 0.83-4.51 [facility] Basophil percentageOrdered B y: Lena Bauergar on 01-21-2023 Basophils/100 WBC (Bld) 1.0 % 0-1 [facility] Bilirubin [Mass/Vol] 0.30 mg/dL 0.20-1.00 [facility] Comment on above: For patients on eltr ombopag therapy, use of Dimension [place] TBIL is not recommended. Chloride [Moles/Vol] 108 mmol/L 98-107 [facility] Cholesterol [Mass/Vol] 205 mg/dL <200 [facility] Comment on above: <200 mg/dL Desirable 200-240 mg/dL Borderline >240 mg/dL High Risk Eosinophils/100 WBC (Bld) 1.1 % 0-5 [facility] Glucose [Mass/Vol] 85 mg/dL 74-106 [facility] Neutrophils (Bld) [#/Vol] 4.6 10*3/uL 2.0-7.7 [facility] Neutrophils/100 WBC (Bld) 64.1 % 47-70 [facility] Potassium [Moles/Vol] 3.6 mmol/L 3.5-5.1 [facility] Protein [Mass/Vol] 6.9 g/dL 6.4-8.2 [facility] Sodium [Moles/Vol] 141 mmol/L 136-145 [facility] Triglyceride [Mass/Vol] 64 mg/dL <199 [facility] Comment on above: The drugs N-Acetylcy steine and Metamizole may falsely depress this assay.Serum Triglycerides Reference Interval Normal <150 mg/dL Borderline high 150 - 199 mg/dL High 200 - 499 mg/dL Very High > or = 500 mg/dL WBC (Bld) [#/Vol] 7.1 10*3/uL 4.4-11.0 [facility] Blood erythrocytes count (nu mber/volume)Ordered By: Lena Suarez on 01-21-2023 RBC (Bld) [#/Vol] 4.53 10*6/uL 4.2-5.4 [facility] Blood hemoglobin measurement (mass/volume)Ordered By: Lena Suarez on 01-21-2023 Hemoglobin (Bld) [Mass/Vol] 13.5 g/dL 12.0-15.0 [facility] Blood lymphocytes/100 leukoc ytesOrdered By: Lena Suarez on 01-21-2023 Lymphocytes/100 WBC (Bld) 27.4 % 19-41 [facility] Blood monocytes/100 leukocyt esOrdered By: Lenadwight Suarez on 01-21-2023 Monocytes/100 WBC (Bld) 6.1 % 0-10 [facility] Blood platelet mean volumeOr dered By: Lena Suarez on 01-21-2023 Platelet mean volume (Bld) [Entitic vol] 9.2 fL 6.2-12.0 [facility] Determination of erythrocyte mean corpuscular volume (MCV)Ordered By: Lena Suarez on 01-21-2023 MCV (RBC) [Entitic vol] 94.7 fL 81-99 [facility] Hematocrit Auto (Bld) [Volum e fraction]Ordered By: Lenadwight Suarez on 01-21-2023 Hematocrit (Bld) [Volume fraction] 42.9 % 37-47 [facility] Laboratory - Chemistry and C hemistry - challengeOrdered By: Lenadwight Suarez on 01-21-2023 ALP [Catalytic activity/Vol] 68 U/L 45-117 [facility] ALT [Catalytic activity/Vol] 23 U/L 13-56 [facility] CO2 [Moles/Vol] 27.0 mmol/L 21.0-32.0 [facility] Globulin (S) [Mass/Vol] 3.3 g/dL 2.2-4.2 [facility] Urea nitrogen/Creatinine [Mass ratio] 27.2 mg/mg 10-20 [facility] Laboratory - Hematology and Cell countsOrdered By: Lena Suarez on 01-21-2023 Erythrocyte distribution width (RBC) [Entitic vol] 48.4 fL 35.1-43.9 [facility] Erythrocyte distribution width (RBC) [Ratio] 13.9 % 11.6-14.6 [facility] Immature granulocytes/100 WBC (Bld) 0.300 % 0.0-0.9 [facility] Comment on above: IG% - Immature Granu locytes (promyelocytes, myelocytes and metamyelocytes) > 1% indicates that a LEFT SHIFT is Present. MCH (RBC) [Entitic mass] 29.8 pg 27.0-32.0 [facility] Nucleated RBC/100 WBC (Bld) [Ratio] 0 % 0-5 [facility] MCHC Auto (RBC) [Mass/Vol]Or dered By: Lena Suarez on 01-21-2023 MCHC (RBC) [Mass/Vol] 31.5 g/dL 32-36 [facility] No Panel InformationOrdered By: Lena Suarez on 01-21-2023 Estimated GFR (MDRD) Amer 140 mL/min >60 [facility] Comment on above: GFR Calc Estimated GFR (MDRD) Non-Af Amer 116 mL/min >60 [facility] Comment on above: Non- GFR Calc Vitamin D 25-Hydroxy 15.4 ng/mL [facility] Comment on above: Vitamin D 25(OH) Sta tus Range Deficiency <20 ng/mL (50nmol/L) Insufficiency 20 - 30 ng/mL (50 - 75 nmol/L) Sufficiency 30 - 100 ng/mL (75 - 250 nmol/L) Toxicity >100 ng/mL (>250 nmol/L) Platelets bldOrdered By: April Suarez on 01-21-2023 Platelets (Bld) [#/Vol] 292 10*3/uL 150-450 [facility] Serum or plasma albumin meka urement (mass/volume)Ordered By: Lena Suarez on 01-21-2023 Albumin [Mass/Vol] 3.6 g/dL 3.2-5.0 [facility] Serum or plasma albumin/glob ulin mass ratioOrdered By: Lena Suarez on 01-21-2023 Albumin/Globulin [Mass ratio] 1.1 {ratio} 0.9-2.4 [facility] Serum or plasma calcium meka urement (mass/volume)Ordered By: Lena Suarez on 01-21-2023 Calcium [Mass/Vol] 8.9 mg/dL 8.5-10.1 [facility] Serum or plasma cholesterol in HDL measurement (mass/volume)Ordered By: Lena Suarez on 01-21-2023 Cholesterol in HDL [Mass/Vol] 106 mg/dL >40 [facility] Comment on above: The drugs N-Acetylcy steine and Metamizole may falsely depress this assay. Reference Range HDL <40 mg/dL Low HDL Cholesterol HDL >or= 60 mg/dL High HDL Cholesterol Serum or plasma cholesterol in VLDL measurement (mass/volume)Ordered By: Lena Suarez on 01-21-2023 Cholesterol in VLDL [Mass/Vol] 13 mg/dL 5-40 [facility] Serum or plasma creatinine m easurement (mass/volume)Ordered By: Lena Suarez on 01-21-2023 Creatinine [Mass/Vol] 0.55 mg/dL 0.55-1.02 [facility] Comment on above: The validity of the calculated GFR & GFRAA in patients over 70 years has not been determined. Clinical correlation is essential. Serum or plasma low density lipoprotein (LDL) cholesterol measurement (mass/volume)Ordered By: Lena Suarez on 01-21-2023 Cholesterol in LDL [Mass/Vol] 86 mg/dL 0-130 [facility] Serum or plasma urea nitroge n measurement (mass/volume)Ordered By: Lena Suarez on 01-21-2023 Urea nitrogen [Mass/Vol] 15 mg/dL 7-18 [facility] Thin prep Papanicolaou smear with manual screeningOrdered By: Lena Suarez on 01-21-2023 Thin prep Papanicolaou smear with manual screening 26 U/L 15-37 [facility] Thin prep Papanicolaou smear with manual screening 6 5-15 [facility] Absolute lymphocyte countOrd ered By: Donald Park on 01-07-2023 Lymphocytes Auto (Unsp spec) [#/Vol] 2.70 10*3/uL 0.83-4.51 [facility] Basophil percentageOrdered B y: Donald Park on 01-07-2023 Basophils/100 WBC (Bld) 1.2 % 0-1 [facility] Bilirubin [Mass/Vol] 0.50 mg/dL 0.20-1.00 [facility] Comment on above: For patients on eltr ombopag therapy, use of Dimension [place] TBIL is not recommended. Chloride [Moles/Vol] 101 mmol/L 98-107 [facility] Eosinophils/100 WBC (Bld) 1.6 % 0-5 [facility] Glucose [Mass/Vol] 94 mg/dL 74-106 [facility] LDH [Catalytic activity/Vol] 162 U/L 84-246 [facility] Neutrophils (Bld) [#/Vol] 5.2 10*3/uL 2.0-7.7 [facility] Neutrophils/100 WBC (Bld) 60.8 % 47-70 [facility] Potassium [Moles/Vol] 3.6 mmol/L 3.5-5.1 [facility] Protein [Mass/Vol] 7.5 g/dL 6.4-8.2 [facility] Sodium [Moles/Vol] 138 mmol/L 136-145 [facility] WBC (Bld) [#/Vol] 8.6 10*3/uL 4.4-11.0 [facility] Blood erythrocytes count (nu mber/volume)Ordered By: Donald Park on 01-07-2023 RBC (Bld) [#/Vol] 4.91 10*6/uL 4.2-5.4 [facility] Blood hemoglobin measurement (mass/volume)Ordered By: Donald Park on 01-07-2023 Hemoglobin (Bld) [Mass/Vol] 14.7 g/dL 12.0-15.0 [facility] Blood lymphocytes/100 leukoc ytesOrdered By: Donald Park on 01-07-2023 Lymphocytes/100 WBC (Bld) 31.3 % 19-41 [facility] Blood monocytes/100 leukocyt esOrdered By: Donald Park on 01-07-2023 Monocytes/100 WBC (Bld) 5.0 % 0-10 [facility] Blood platelet mean volumeOr dered By: Donald Park on 01-07-2023 Platelet mean volume (Bld) [Entitic vol] 8.9 fL 6.2-12.0 [facility] Determination of erythrocyte mean corpuscular volume (MCV)Ordered By: Donald Park on 01-07-2023 MCV (RBC) [Entitic vol] 93.1 fL 81-99 [facility] Hematocrit Auto (Bld) [Volum e fraction]Ordered By: Donald Park on 01-07-2023 Hematocrit (Bld) [Volume fraction] 45.7 % 37-47 [facility] Laboratory - Chemistry and C hemistry - challengeOrdered By: Donald Park on 01-07-2023 ALP [Catalytic activity/Vol] 86 U/L 45-117 [facility] ALT [Catalytic activity/Vol] 18 U/L 13-56 [facility] CO2 [Moles/Vol] 29.0 mmol/L 21.0-32.0 [facility] Globulin (S) [Mass/Vol] 3.6 g/dL 2.2-4.2 [facility] Urea nitrogen/Creatinine [Mass ratio] 22.1 mg/mg 10-20 [facility] Laboratory - Hematology and Cell countsOrdered By: Donald Park on 01-07-2023 Erythrocyte distribution width (RBC) [Entitic vol] 46.0 fL 35.1-43.9 [facility] Erythrocyte distribution width (RBC) [Ratio] 13.6 % 11.6-14.6 [facility] Immature granulocytes/100 WBC (Bld) 0.100 % 0.0-0.9 [facility] Comment on above: IG% - Immature Granu locytes (promyelocytes, myelocytes and metamyelocytes) > 1% indicates that a LEFT SHIFT is Present. MCH (RBC) [Entitic mass] 29.9 pg 27.0-32.0 [facility] Nucleated RBC/100 WBC (Bld) [Ratio] 0 % 0-5 [facility] MCHC Auto (RBC) [Mass/Vol]Or dered By: Donald Park on 01-07-2023 MCHC (RBC) [Mass/Vol] 32.2 g/dL 32-36 [facility] No Panel InformationOrdered By: Donald Park on 01-07-2023 Estimated Creatinine Clearance Calc 30.21 ml/min [facility] Estimated GFR (MDRD) Amer 110 mL/min >60 [facility] Comment on above: GFR Calc Estimated GFR (MDRD) Non-Af Amer 91 mL/min >60 [facility] Comment on above: Non- GFR Calc Platelets bldOrdered By: Yariel Park on 01-07-2023 Platelets (Bld) [#/Vol] 340 10*3/uL 150-450 [facility] Serum or plasma albumin meka urement (mass/volume)Ordered By: Donald Park on 01-07-2023 Albumin [Mass/Vol] 3.9 g/dL 3.2-5.0 [facility] Serum or plasma albumin/glob ulin mass ratioOrdered By: Donald Park on 01-07-2023 Albumin/Globulin [Mass ratio] 1.1 {ratio} 0.9-2.4 [facility] Serum or plasma calcium meka urement (mass/volume)Ordered By: Donald Park on 01-07-2023 Calcium [Mass/Vol] 9.2 mg/dL 8.5-10.1 [facility] Serum or plasma creatinine m easurement (mass/volume)Ordered By: Donald Park on 01-07-2023 Creatinine [Mass/Vol] 0.68 mg/dL 0.55-1.02 [facility] Comment on above: The validity of the calculated GFR & GFRAA in patients over 70 years has not been determined. Clinical correlation is essential. Serum or plasma urea nitroge n measurement (mass/volume)Ordered By: Donald Park on 01-07-2023 Urea nitrogen [Mass/Vol] 15 mg/dL 7-18 [facility] Thin prep Papanicolaou smear with manual screeningOrdered By: Donald Park on 01-07-2023 Thin prep Papanicolaou smear with manual screening 13 U/L 15-37 [facility] Thin prep Papanicolaou smear with manual screening 8 5-15 [facility] Absolute lymphocyte countOrd ered By: Dr. Bravo on 11-27-2022 Lymphocytes Auto (Unsp spec) [#/Vol] 1.45 10*3/uL 0.83-4.51 [facility] Basophil percentageOrdered B y: Dr. Bravo on 11-27-2022 Basophils/100 WBC (Bld) 0.2 % 0-1 [facility] Eosinophils/100 WBC (Bld) 0.2 % 0-5 [facility] Neutrophils (Bld) [#/Vol] 11.1 10*3/uL 2.0-7.7 [facility] Neutrophils/100 WBC (Bld) 83.7 % 47-70 [facility] WBC (Bld) [#/Vol] 13.3 10*3/uL 4.4-11.0 [facility] Blood erythrocytes count (nu mber/volume)Ordered By: Dr. Bravo on 11-27-2022 RBC (Bld) [#/Vol] 3.85 10*6/uL 4.2-5.4 [facility] Blood hemoglobin measurement (mass/volume)Ordered By: Dr. Bravo on 11-27-2022 Hemoglobin (Bld) [Mass/Vol] 11.3 g/dL 12.0-15.0 [facility] Blood lymphocytes/100 leukoc ytesOrdered By: Dr. Bravo on 11-27-2022 Lymphocytes/100 WBC (Bld) 10.9 % 19-41 [facility] Blood monocytes/100 leukocyt esOrdered By: Dr. Bravo on 11-27-2022 Monocytes/100 WBC (Bld) 3.9 % 0-10 [facility] Blood platelet mean volumeOr dered By: Dr. Bravo on 11-27-2022 Platelet mean volume (Bld) [Entitic vol] 9.4 fL 6.2-12.0 [facility] Determination of erythrocyte mean corpuscular volume (MCV)Ordered By: Dr. Bravo on 11-27-2022 MCV (RBC) [Entitic vol] 93.0 fL 81-99 [facility] Hematocrit Auto (Bld) [Volum e fraction]Ordered By: Dr. Bravo on 11-27-2022 Hematocrit (Bld) [Volume fraction] 35.8 % 37-47 [facility] Laboratory - Hematology and Cell countsOrdered By: Dr. Bravo on 11-27-2022 Erythrocyte distribution width (RBC) [Entitic vol] 45.8 fL 35.1-43.9 [facility] Erythrocyte distribution width (RBC) [Ratio] 13.3 % 11.6-14.6 [facility] Immature granulocytes/100 WBC (Bld) 1.100 % 0.0-0.9 [facility] Comment on above: IG% - Immature Granu locytes (promyelocytes, myelocytes and metamyelocytes) > 1% indicates that a LEFT SHIFT is Present. MCH (RBC) [Entitic mass] 29.4 pg 27.0-32.0 [facility] Nucleated RBC/100 WBC (Bld) [Ratio] 0 % 0-5 [facility] MCHC Auto (RBC) [Mass/Vol]Or dered By: Dr. Bravo on 11-27-2022 MCHC (RBC) [Mass/Vol] 31.6 g/dL 32-36 [facility] Platelets bldOrdered By: Dr. Bravo on 11-27-2022 Platelets (Bld) [#/Vol] 222 10*3/uL 150-450 [facility] Basophil percentageOrdered B y: Dr. Guzman on 11-26-2022 Chloride [Moles/Vol] 108 mmol/L 98-107 [facility] Glucose [Mass/Vol] 163 mg/dL 74-106 [facility] Comment on above: Fasting Glucose resu lt greater than or equal to 126 mg/dL suggests DIABETES MELLITUS per A.D.A. criteria. Potassium [Moles/Vol] 3.6 mmol/L 3.5-5.1 [facility] Sodium [Moles/Vol] 136 mmol/L 136-145 [facility] Blood manual differential co mment interpretation (narrative result)Ordered By: Dr. Guzman on 11-26-2022 Manual differential comment Vitor (Bld) [Interp] SCANNED [facility] Comment on above: SLIGHT LEFT SHIFT NO STEVEN, 1+ BANDS PRESENT Laboratory - Chemistry and C hemistry - challengeOrdered By: Dr. Guzman on 11-26-2022 CO2 [Moles/Vol] 25.0 mmol/L 21.0-32.0 [facility] Urea nitrogen/Creatinine [Mass ratio] 39.3 mg/mg 10-20 [facility] No Panel InformationOrdered By: Dr. Guzman on 11-26-2022 Estimated Creatinine Clearance Calc 28.98 ml/min [facility] Estimated GFR (MDRD) Amer 154 mL/min >60 [facility] Comment on above: GFR Calc Estimated GFR (MDRD) Non-Af Amer 127 mL/min >60 [facility] Comment on above: Non- GFR Calc Serum or plasma calcium meka urement (mass/volume)Ordered By: Dr. Guzman on 11-26-2022 Calcium [Mass/Vol] 8.7 mg/dL 8.5-10.1 [facility] Serum or plasma creatinine m easurement (mass/volume)Ordered By: Dr. Guzman on 11-26-2022 Creatinine [Mass/Vol] 0.51 mg/dL 0.55-1.02 [facility] Comment on above: The validity of the calculated GFR & GFRAA in patients over 70 years has not been determined. Clinical correlation is essential. Serum or plasma urea nitroge n measurement (mass/volume)Ordered By: Dr. Guzman on 11-26-2022 Urea nitrogen [Mass/Vol] 20 mg/dL 7-18 [facility] Thin prep Papanicolaou smear with manual screeningOrdered By: Dr. Guzman on 11-26-2022 Thin prep Papanicolaou smear with manual screening 3 5-15 [facility] Absolute lymphocyte countOrd ered By: ED PROVIDER on 11-25-2022 Lymphocytes Auto (Unsp spec) [#/Vol] 0.80 10*3/uL 0.83-4.51 [facility] Basophil percentageOrdered B y: Dr. Bazzi on 11-25-2022 Lactate [Moles/Vol] 0.9 mmol/L 0.4-2.0 [facility] Basophil percentageOrdered B y: ED PROVIDER on 11-25-2022 Basophils/100 WBC (Bld) 0.3 % 0-1 [facility] Chloride [Moles/Vol] 104 mmol/L 98-107 [facility] Eosinophils/100 WBC (Bld) 0.0 % 0-5 [facility] [facility] Glucose [Mass/Vol] 115 mg/dL 74-106 [facility] Comment on above: Fasting Glucose resu lt from 100 to 125 mg/dL suggests IMPAIRED HOMEOSTASIS per A.D.A. criteria. Neutrophils (Bld) [#/Vol] 17.3 10*3/uL 2.0-7.7 [facility] Neutrophils/100 WBC (Bld) 90.8 % 47-70 [facility] Potassium [Moles/Vol] 4.0 mmol/L 3.5-5.1 [facility] Comment on above: Slight Hemolysis, Re sult may be falsely increased. Sodium [Moles/Vol] 137 mmol/L 136-145 [facility] WBC (Bld) [#/Vol] 19.1 10*3/uL 4.4-11.0 [facility] Blood erythrocytes count (nu mber/volume)Ordered By: ED PROVIDER on 11-25-2022 RBC (Bld) [#/Vol] 4.77 10*6/uL 4.2-5.4 [facility] Blood hemoglobin measurement (mass/volume)Ordered By: ED PROVIDER on 11-25-2022 Hemoglobin (Bld) [Mass/Vol] 14.4 g/dL 12.0-15.0 [facility] Blood lymphocytes/100 leukoc ytesOrdered By: ED PROVIDER on 11-25-2022 Lymphocytes/100 WBC (Bld) 4.2 % 19-41 [facility] Blood monocytes/100 leukocyt esOrdered By: ED PROVIDER on 11-25-2022 Monocytes/100 WBC (Bld) 4.1 % 0-10 [facility] Blood platelet mean volumeOr dered By: ED PROVIDER on 11-25-2022 Platelet mean volume (Bld) [Entitic vol] 8.7 fL 6.2-12.0 [facility] Determination of erythrocyte mean corpuscular volume (MCV)Ordered By: ED PROVIDER on 11-25-2022 MCV (RBC) [Entitic vol] 91.8 fL 81-99 [facility] Hematocrit Auto (Bld) [Volum e fraction]Ordered By: ED PROVIDER on 11-25-2022 Hematocrit (Bld) [Volume fraction] 43.8 % 37-47 [facility] Influenza virus A and B and SARS-CoV-2 (COVID-19) Ag panel - Upper respiratory specimOrdered By: Fransico Bazzi on 11-25-2022 SARS-CoV-2 (COVID-19) RNA BRENNEN+probe Ql (Resp) [facility] Influenza virus A and B and SARS-CoV-2 (COVID-19) Ag panel - Upper respiratory specimOrdered By: Dr. Bazzi on 11-25-2022 SARS-CoV-2 (COVID-19) RNA BRENNEN+probe Ql (Resp) [facility] Laboratory - Chemistry and C hemistry - challengeOrdered By: ED PROVIDER on 11-25-2022 CO2 [Moles/Vol] 28.0 mmol/L 21.0-32.0 [facility] Urea nitrogen/Creatinine [Mass ratio] 23.4 mg/mg 10-20 [facility] Laboratory - Hematology and Cell countsOrdered By: ED PROVIDER on 11-25-2022 Erythrocyte distribution width (RBC) [Entitic vol] 44.9 fL 35.1-43.9 [facility] Erythrocyte distribution width (RBC) [Ratio] 13.2 % 11.6-14.6 [facility] Immature granulocytes/100 WBC (Bld) 0.600 % 0.0-0.9 [facility] Comment on above: IG% - Immature Granu locytes (promyelocytes, myelocytes and metamyelocytes) > 1% indicates that a LEFT SHIFT is Present. MCH (RBC) [Entitic mass] 30.2 pg 27.0-32.0 [facility] Nucleated RBC/100 WBC (Bld) [Ratio] 0 % 0-5 [facility] Laboratory - Microbiology an d Antimicrobial susceptibilityOrdered By: Fransico Bazzi on 11-25-2022 Bacteria identified Cx Nom (Bld) No growth in 5 days. [facility] MCHC Auto (RBC) [Mass/Vol]Or dered By: ED PROVIDER on 11-25-2022 MCHC (RBC) [Mass/Vol] 32.9 g/dL 32-36 [facility] No Panel InformationOrdered By: Dr. Guzman on 11-25-2022 Streptococcus pneumoniae Antigen (M [facility] No Panel InformationOrdered By: ED PROVIDER on 11-25-2022 Troponin I High Sensitivity 5 pg/mL 3.0-54.0 [facility] Comment on above: Please Note: New Nelsy t Units and Gender Specific Reference Ranges. For more information see Policy Stat Procedure [place] High Sensitivity Troponin (TNIH) and attachments. Estimated GFR (MDRD) Amer 85 mL/min >60 [facility] Comment on above: GFR Calc Estimated GFR (MDRD) Non-Af Amer 70 mL/min >60 [facility] Comment on above: Non- GFR Calc Platelets bldOrdered By: ED PROVIDER on 11-25-2022 Platelets (Bld) [#/Vol] 246 10*3/uL 150-450 [facility] Serum or plasma calcium meka urement (mass/volume)Ordered By: ED PROVIDER on 11-25-2022 Calcium [Mass/Vol] 9.6 mg/dL 8.5-10.1 [facility] Serum or plasma creatinine m easurement (mass/volume)Ordered By: ED PROVIDER on 11-25-2022 Creatinine [Mass/Vol] 0.85 mg/dL 0.55-1.02 [facility] Comment on above: The validity of the calculated GFR & GFRAA in patients over 70 years has not been determined. Clinical correlation is essential. Serum or plasma urea nitroge n measurement (mass/volume)Ordered By: ED PROVIDER on 11-25-2022 Urea nitrogen [Mass/Vol] 20 mg/dL 7-18 [facility] Thin prep Papanicolaou smear with manual screeningOrdered By: ED PROVIDER on 11-25-2022 Thin prep Papanicolaou smear with manual screening 5 5-15 [facility] Urine Legionella pneumophila antigen detectionOrdered By: Donald Guzman on 11-25-2022 L. pneumophila Ag Ql (U) [facility] Urine Legionella pneumophila antigen detectionOrdered By: Dr. Guzman on 11-25-2022 L. pneumophila Ag Ql (U) [facility] Absolute lymphocyte counton 01-15-2022 Lymphocytes Auto (Unsp spec) [#/Vol] 0.95 10*3/uL 0.83-4.51 [facility] Work Phone: Basophil percentageon 2021 Basophils/100 WBC (Bld) 1.0 % 0-1 [facility] Work Phone: Bilirubin [Mass/Vol] 0.40 mg/dL 0.20-1.00 [facility] Work Phone: Comment on above: For patients on eltr ombopag therapy, use of Dimension [place] TBIL is not recommended. Chloride [Moles/Vol] 102 mmol/L 98-107 [facility] Work Phone: Eosinophils/100 WBC (Bld) 0.2 % 0-5 [facility] Work Phone: Glucose [Mass/Vol] 89 mg/dL 74-106 [facility] Work Phone: Neutrophils (Bld) [#/Vol] 4.5 10*3/uL 2.0-7.7 [facility] Work Phone: Neutrophils/100 WBC (Bld) 74.7 % 47-70 [facility] Work Phone: Potassium [Moles/Vol] 3.7 mmol/L 3.5-5.1 [facility] Work Phone: Protein [Mass/Vol] 7.0 g/dL 6.4-8.2 [facility] Work Phone: Sodium [Moles/Vol] 137 mmol/L 136-145 [facility] Work Phone: WBC (Bld) [#/Vol] 6.0 10*3/uL 4.4-11.0 [facility] Work Phone: Blood erythrocytes count (nu mber/volume)on 01-15-2022 RBC (Bld) [#/Vol] 4.32 10*6/uL 4.2-5.4 [facility] Work Phone: Blood hemoglobin measurement (mass/volume)on 01-15-2022 Hemoglobin (Bld) [Mass/Vol] 13.2 g/dL 12.0-15.0 [facility] Work Phone: Blood lymphocytes/100 leukoc yteson 01-15-2022 Lymphocytes/100 WBC (Bld) 15.9 % 19-41 [facility] Work Phone: Blood monocytes/100 leukocyt eson 01-15-2022 Monocytes/100 WBC (Bld) 7.9 % 0-10 [facility] Work Phone: Blood platelet mean volumeon 01-15-2022 Platelet mean volume (Bld) [Entitic vol] 8.9 fL 6.2-12.0 [facility] Work Phone: Determination of erythrocyte mean corpuscular volume (MCV)on 01-15-2022 MCV (RBC) [Entitic vol] 91.4 fL 81-99 [facility] Work Phone: Hematocrit Auto (Bld) [Volum e fraction]on 01-15-2022 Hematocrit (Bld) [Volume fraction] 39.5 % 37-47 [facility] Work Phone: [phone] Laboratory - Chemistry and C hemistry - challengeon 01-15-2022 ALP [Catalytic activity/Vol] 85 U/L 45-117 [facility] Work Phone: ALT [Catalytic activity/Vol] 19 U/L 13-56 [facility] Work Phone: CO2 [Moles/Vol] 29.0 mmol/L 21.0-32.0 [facility] Work Phone: [phone] Globulin (S) [Mass/Vol] 3.4 g/dL 2.2-4.2 [facility] Work Phone: Urea nitrogen/Creatinine [Mass ratio] 27.1 mg/mg 10-20 [facility] Work Phone: Laboratory - Hematology and Cell countson 01-15-2022 Erythrocyte distribution width (RBC) [Entitic vol] 43.9 fL 35.1-43.9 [facility] Work Phone: Erythrocyte distribution width (RBC) [Ratio] 13.1 % 11.6-14.6 [facility] Work Phone: Immature granulocytes/100 WBC (Bld) 0.300 % 0.0-0.9 [facility] Work Phone: Comment on above: IG% - Immature Granu locytes (promyelocytes, myelocytes and metamyelocytes) > 1% indicates that a LEFT SHIFT is Present. MCH (RBC) [Entitic mass] 30.6 pg 27.0-32.0 [facility] Work Phone: Nucleated RBC/100 WBC (Bld) [Ratio] 0 % 0-5 [facility] Work Phone: MCHC Auto (RBC) [Mass/Vol]on 01-15-2022 MCHC (RBC) [Mass/Vol] 33.4 g/dL 32-36 [facility] Work Phone: No Panel Informationon 01-15 Estimated Creatinine Clearance Calc 30.64 ml/min [facility] Work Phone: Estimated GFR (MDRD) Amer 121 mL/min >60 [facility] Work Phone: Comment on above: GFR Calc Estimated GFR (MDRD) Non-Af Amer 100 mL/min >60 [facility] Work Phone: Comment on above: Non- GFR Calc Platelets bldon 01-15-2022 Platelets (Bld) [#/Vol] 221 10*3/uL 150-450 [facility] Work Phone: Serum or plasma albumin meka urement (mass/volume)on 01-15-2022 Albumin [Mass/Vol] 3.6 g/dL 3.2-5.0 [facility] Work Phone: Serum or plasma albumin/glob ulin mass ratioon 01-15-2022 Albumin/Globulin [Mass ratio] 1.1 {ratio} 0.9-2.4 [facility] Work Phone: Serum or plasma calcium meka urement (mass/volume)on 01-15-2022 Calcium [Mass/Vol] 9.0 mg/dL 8.5-10.1 [facility] Work Phone: Serum or plasma creatinine m easurement (mass/volume)on 01-15-2022 Creatinine [Mass/Vol] 0.63 mg/dL 0.55-1.02 [facility] Work Phone: Comment on above: The validity of the calculated GFR & GFRAA in patients over 70 years has not been determined. Clinical correlation is essential. Serum or plasma urea nitroge n measurement (mass/volume)on 01-15-2022 Urea nitrogen [Mass/Vol] 17 mg/dL 7-18 [facility] Work Phone: Thin prep Papanicolaou smear with manual screeningon 01-15-2022 Thin prep Papanicolaou smear with manual screening 19 U/L 15-37 [facility] Work Phone: Thin prep Papanicolaou smear with manual screening 6 5-15 [facility] Work Phone: Thin prep Papanicolaou smear with manual screening 160 U/L 84-246 [facility] Work Phone: CNOVon 08-08-2021 CNOV Office Visit (GENSWS ) ASHLEE MILLER ([id number]) 1950 F Date Time Provider Department 08/08/21 2:20 PM NOE MASSEY During your visit today, we recorded the following information about you: Temperature Pulse Blood pressure Weight 99.5 degrees 116/minute 102/64 36.7 kg Height 1.626 m Noe Massey III, MD 08/08/2021 2:36 PM Signed Subjective: Patient is status post upper endoscopy completed at [facility] on 08/01/2021. Did a biopsy of her [...] ?C (99.5 ?F), height 162.6 cm (5' 4), weight 36.7 kg (81 lb), SpO2 93 [...] step would be to get esophageal manometry. Referring Provider: NOE MASSEY [[id number]] Allergies As of Date: 08/08/2021 (No Known Allergies) Date Reviewed: 08/08/2021 Reviewed by: Dipti Sim LPN - Fully Assessed Reason for Visit: Follow Up [171] Cmt: EGD Primary Visit Diagnosis:Oropharyngeal dysphagia [R13.12] Prescriptions as of 08/08/2021 - OXYGEN, HOME THERAPY, Inhale as instructed as directed. - MEDICATION, NON-DATABASE Inhale as instructed as needed. triliogy - albuterol HFA (PROVENTIL HFA, VENTOLIN HFA) 90 mcg/actuation inhaler INHALE 2 (TWO) PUFFS EVERY 4 HOURS NEEDED FOR SHORTNESS OF BREATH OR FOR WHEEZING - wuekagbmsjv-wobcszhyd-flrbp ter 100-62.5-25 mcg Trelegy Ellipta 100 mcg-62.5 mcg-25 mcg powder for inhalation - ipratropium-albuterol (DUONEB) 0.5 mg-3 mg(2.5 mg base)/3 mL nebu Inhale as instructed. - acetaminophen (TYLENOL) 500 mg tablet Take 2 tablets by mouth every 8 hours. - polyethylene glycol 3350 (MIRALAX, GLYCOLAX) 17 gram packet Take 1 Packet by mouth once daily. - ibuprofen (MOTRIN) 400 mg tablet Take 1 tablet by mouth every 6 hours as needed. - magnesium hydroxide (MOM) 400 mg/5 mL suspension Take 30 mL by mouth daily at bedtime. - alendronate (FOSAMAX) 70 mg tablet Problem List As Of Date 08/08/2021 Noted Resolved Lt VATS, bullectomy, Doxycycline pleurodesis [*11/18/2017 History of breast cancer [Z85.3] 11/19/2017 COPD (chronic obstructive pulmonary disease) (H*11/19/2017 COPD (chronic obstructive pulmonary disease) (H*11/19/2017 Current smoker [F17.200] 11/19/2017 Discharge planning issues [Z02.9] 11/19/2017 Severe protein-calorie malnutrition (HCC) [E43] 11/19/2017 Post-op pain [G89.18] 11/21/2017 Screening for colon cancer [Z12.11] 05/23/2021 05/23/2021 Letter Text Encounter Status:Closed by NOE MASSEY on 08/08/21 Normal [facility] EGD DIAGNOSTICon 08-01-2021 [facility] HISTORY PHYSICALon HISTORY PHYSICAL HNO ID: [id number] Author: Noe Massey MD Service: General Surgery Author Type: Physician Type: HANDP Filed: 08/01/2021 11:21 AM Note Text: HISTORY AND PHYSICAL ? Ashlee Parr Paul 1950 ? REFERRING PHYSICIAN: Noe Massey MD ? CHIEF COMPLAINT: Follow Up (colonoscopy, difficulty swallowing since procedure) ? HPI: The patient is a 70 year old female referred for endoscopy. Ashlee notes no history of colon complaints. ? The patient notes the following upper complaints: Ashlee denies abdominal pain.. Ashlee denies heartburn. Ashlee notes dysphagia. Ashlee denies a history of ulcers/ peptic ulcer disease. ? Ashlee has not undergone prior upper endoscopy. ? PAST MEDICAL HISTORY PAST MEDICAL HISTORY Diagnosis Date - Abnormal finding on mammography, microcalcification ? - Breast cancer (HCC) ? - COPD (chronic obstructive pulmonary disease) (HCC) ? - Other specified abdominal hernia without obstruction or gangrene ? ? left upper abdomen - Pneumothorax on left 11/16/2017 - Sleep apnea ? ? ? PAST SURGICAL HISTORY PAST SURGICAL HISTORY Procedure Laterality Date - ABDOMINAL SURGERY HX ? ? - BREAST BIOPSY W/STEREOTACTIC GUIDANCE Right 11/26/2016 - BREAST BX US GUIDED ? 2000 - BREAST SURGERY HX ? ? - COLON SURGERY HX ? ? - COLONOSCOP W/ OR W/O BRSH SPEC ? ? ? unsure of date - COLONOSCOP W/ OR W/O BRSH SPEC ? 05/23/2021 - GI SMALL BOWEL MULTIPLE SERIES ? 2007 - MASTECTOMY HX ? ? - PAST SURGICAL HISTORY OF Left 11/20/2017 ? Lt VATS, bullectomy, Doxycycline pleurodesis - PNEUMOTHORAXCHEST TUBE ? 11/17/2017 ? left pneumocath placement [facility] ? ? - TONSILLECTOMY HX ? CURRENT MEDICATIONS Current Outpatient Medications Medication Sig - MEDICATION, NON-DATABASE Inhale as instructed as needed. triliogy - acetaminophen (TYLENOL) 500 mg tablet Take 2 tablets by mouth every 8 hours. - albuterol HFA (PROVENTIL HFA, VENTOLIN HFA) 90 mcg/actuation inhaler INHALE 2 (TWO) PUFFS EVERY 4 HOURS NEEDED FOR SHORTNESS OF BREATH OR FOR WHEEZING - ksgaoxkibas-tyxfhbvvw-gyezd ter 100-62.5-25 mcg Trelegy Ellipta 100 mcg-62.5 mcg-25 [...] (Patient not taking: Reported on 07/08/2021 ) ? No current facility-administered medications for this visit. ? ? ALLERGIES: Patient has no known allergies. ? PERSONAL HISTORY: SOCIAL HISTORY Social History ? Tobacco Use - Smoking status: Current Every Day Smoker ? ? Packs/day: 1.00 ? ? Types: Cigarettes ? ? Start date: 11/12/1986 - Smokeless tobacco: Never Used Vaping Use - Vaping Use: Former Substance Use Topics - Alcohol use: Never - Drug use: Never ? FAMILY HISTORY: FAMILY HISTORY FAMILY HISTORY Problem Relation Age of Onset - other (othr) Mother ? ? polio - Hypertension Mother ? - other (pacemaker) Mother ? - COPD Father ? ? ? REVIEW OF SYMPTOMS: The review of systems data was entered by the nurse and reviewed by me ? Nursing Notes: German Connor RN 07/08/2021 2:56 PM Signed REVIEW [...] denies diverticulitis, denies constipation, denies diarrhea, denies (more content not included)... Normal [facility] NURSING PROGon 08-01-2021 NURSING PROG HNO ID: [id number] Author: Huyen Jung RN Service: ? Author Type: Registered Nurse Type: Nursing Progress Note Filed: 08/01/2021 11:41 AM Note Text: Arrived in phase II via cart. Left lateral position. Sedated, but responds to verbal stimuli. Color normal; skin warm and dry. Respirations wnl and unlabored. Abdomen soft and with + bowel sounds in quads X 4. Patient resting comfortably. Family at bedside. Dr. Massey at bedside to review procedure and recommendations. Huyen Jung RN Normal [facility] NURSING PROG HNO ID: [id number] Author: Tess Coleman RN Service: ? Author Type: Registered Nurse Type: Nursing Progress Note Filed: 08/01/2021 11:16 AM Note Text: [facility] PRE-OP NURSING HAND OFF NOTE SBAR Hand off given to Renuka Roman RN and Keyanna Eddy RN. Hand off was communicated verbally and at the patient's bedside and all questions were answered. Tess Coleman RN Normal [facility] NURSING PROG HNO ID: [id number] Author: Tess Coleman RN Service: ? Author Type: Registered Nurse Type: Nursing Progress Note Filed: 08/01/2021 11:08 AM Note Text: Dr. Massey in between procedures. Spoke with him regarding pt preferring that we use her port. Dr. Massey agreeable and will place order. Valencia Wayne RN also aware. Tess Coleman RN Normal [facility] SURGICAL PATHOLOGYon 022 SURGICAL PATHOLOGY Specimen originated from [facility] Specimen #: [id number] Submitting Physician: NOE MASSEY ([id number]) FINAL DIAGNOSIS 1. Gastric antrum, biopsy (A) - No significant pathologic change. No morphologic evidence of Helicobacter pylori. 2. Distal esophagus, biopsy (B) - Fragments of unremarkable squamous mucosa. No evidence of intestinal metaplasia or dysplasia. No evidence of eosinophilia. RUPERTO/janet 08/02/2021 Tang Marx M.D. (Electronic Signature) SPECIMEN SUBMITTED A: ANTRUM, BIOPSY B: DISTAL ESOPHAGUS, BIOPSY CLINICAL DATA DYSPHAGIA, LMP: N/A A: H/H GROSS DESCRIPTION A. Received in formalin is one piece of valverde, soft tissue measuring 0.9 x 0.3 x 0.2 cm. Totally submitted in one cassette. B. Received in formalin are two pieces of valverde-white, soft tissue aggregating to 1.0 x 0.3 x 0.2 cm. Totally submitted in one cassette. Gross examination performed at [facility], [address] [place] [address] 08/01/2021 8:29:52 PM Date of Report: 08/02/2021 Date of Procedure: 08/01/2021 Date of Receipt: 08/01/2021 Submitted by: NOE MASSEY ([id number]) Location: [facility] Diagnostic interpretation performed at [facility], [address] [place] [address]. CLIA Number: [id number] Normal [facility] CNOVon 07-08-2021 CNOV Office Visit (GENROSALINDAS ) ASHLEE MILLER ([id number]) 1950 F Date Time Provider Department 07/08/21 2:30 PM NOE MASSEY During your visit today, we recorded the following information about you: Temperature Pulse Blood pressure Weight 98.7 degrees 105/minute 98/50 36.5 kg Height 1.626 m Noe Massey III, MD 07/19/2021 1:36 PM Signed HISTORY AND PHYSICAL Ashlee Miller 1950 REFERRING PHYSICIAN: Noe Massey MD CHIEF COMPLAINT: Follow Up (colonoscopy, difficulty swallowing since procedure) HPI: The patient is a 70 year old female referred for endoscopy. Ashlee notes no history of colon complaints. The patient notes the following upper complaints: Ashlee denies abdominal pain.. Ashlee denies heartburn. Ashlee notes dysphagia. Ashlee denies a history of ulcers/ peptic ulcer disease. Ashlee has not undergone prior upper endoscopy. PAST [...] SHORTNESS OF BREATH OR FOR WHEEZING - mbrukkvuwiu-tnvjclvkx-zvsir ter 100-62.5-25 mcg Trelegy Ellipta 100 mcg-62.5 mcg-25 [...] entered by the nurse and reviewed by ks Nursing Notes: German Connor RN 07/08/2021 2:56 PM Signed REVIEW [...] from rectum, denies diverticulitis, denies constipation, denies diar (more content not included)... Normal [facility] Jhoan 07-08-2021 CNPN Telephone (Aito B[facility]) PAULASHLEE ([id number]) 1950 F Date Time Provider Department 07/08/21 NOE MASSEY During your visit today, we recorded the following information about you: Ceci Green 07/08/2021 2:57 PM Signed 07/25/[address] Massey @ [facility] Allergies As of Date: 07/08/2021 (No Known Allergies) Date Reviewed: 07/08/2021 Reviewed by: Dipti Sim LPN - Fully Assessed Reason for Visit: 07/25/21 EGD [Other] Primary Visit Diagnosis:Oropharyngeal dysphagia [R13.12] Order(s):EGD DIAGNOSTIC [GI9] Order #: [id number] FUTURE Prescriptions as of 12/18/2021 - OXYGEN, HOME THERAPY, Inhale as instructed as directed. - MEDICATION, NON-DATABASE Inhale as instructed as needed. triliogy - albuterol HFA (PROVENTIL HFA, VENTOLIN HFA) 90 mcg/actuation inhaler INHALE 2 (TWO) PUFFS EVERY 4 HOURS NEEDED FOR SHORTNESS OF BREATH OR FOR WHEEZING - qervnapoorf-nnpzdcnhq-hxbks ter 100-62.5-25 mcg Trelegy Ellipta 100 mcg-62.5 mcg-25 mcg powder for inhalation - ipratropium-albuterol (DUONEB) 0.5 mg-3 mg(2.5 mg base)/3 mL nebu Inhale as instructed. - acetaminophen (TYLENOL) 500 mg tablet Take 2 tablets by mouth every 8 hours. - polyethylene glycol 3350 (MIRALAX, GLYCOLAX) 17 gram packet Take 1 Packet by mouth once daily. - ibuprofen (MOTRIN) 400 mg tablet Take 1 tablet by mouth every 6 hours as needed. - magnesium hydroxide (MOM) 400 mg/5 mL suspension Take 30 mL by mouth daily at bedtime. - alendronate (FOSAMAX) 70 mg tablet Problem List As Of Date 07/08/2021 Noted Resolved Lt VATS, bullectomy, Doxycycline pleurodesis [*11/18/2017 History of breast cancer [Z85.3] 11/19/2017 COPD (chronic obstructive pulmonary disease) (H*11/19/2017 COPD (chronic obstructive pulmonary disease) (H*11/19/2017 Current smoker [F17.200] 11/19/2017 Discharge planning issues [Z02.9] 11/19/2017 Severe protein-calorie malnutrition (HCC) [E43] 11/19/2017 Post-op pain [G89.18] 11/21/2017 Screening for colon cancer [Z12.11] 05/23/2021 05/23/2021 Encounter Status:Closed by ECCI RAMIREZ on 12/18/21 [facility] Jhoan 06-03-2021 CNPN Telephone (GENSWS) ASHLEE MILLER ([id number]) 1950 F Date Time Provider Department 06/03/21 PATRICIA ARAYA During your visit today, we recorded the following information about you: Anusha Macedo RN 06/03/2021 3:22 PM Signed Patient failed to show for endo follow up. Please advise. Anusha Araya PA-C 06/03/2021 3:32 PM Signed Please let patient know pathology demonstrated tubular adenomas. Based on current guidelines regarding the size, pathology and number of polyps we recommend repeat colonoscopy in 5 years for surveillance, if no changes or new concerns before that time. Please update HM and generate recall letter for 5 years. Anusha Macedo RN 06/04/2021 3:14 PM Signed I spoke with the patient and gave her these results. She verbalized understanding. Health maintenance was updated and a recall letter generated. Anusha Macedo RN Allergies As of Date: 06/03/2021 (No Known Allergies) Date Reviewed: 05/23/2021 Reviewed by: Tess Colemna RN - Fully Assessed Reason for Visit: Results [95] Prescriptions as of 06/04/2021 - albuterol HFA (PROVENTIL HFA, VENTOLIN HFA) 90 mcg/actuation inhaler INHALE 2 (TWO) PUFFS EVERY 4 HOURS NEEDED FOR SHORTNESS OF BREATH OR FOR WHEEZING - sotnvkahpya-vnuxuripv-spoxr ter 100-62.5-25 mcg Trelegy Ellipta 100 mcg-62.5 mcg-25 mcg powder for inhalation - ipratropium-albuterol (DUONEB) 0.5 mg-3 mg(2.5 mg base)/3 mL nebu Inhale as instructed. - acetaminophen (TYLENOL) 500 mg tablet Take 2 tablets by mouth every 8 hours. - polyethylene glycol 3350 (MIRALAX, GLYCOLAX) 17 gram packet Take 1 Packet by mouth once daily. - ibuprofen (MOTRIN) 400 mg tablet Take 1 tablet by mouth every 6 hours as needed. - magnesium hydroxide (MOM) 400 mg/5 mL suspension Take 30 mL by mouth daily at bedtime. - alendronate (FOSAMAX) 70 mg tablet Problem List As Of Date 06/03/2021 Noted Resolved Lt VATS, bullectomy, Doxycycline pleurodesis [*11/18/2017 History of breast cancer [Z85.3] 11/19/2017 COPD (chronic obstructive pulmonary disease) (H*11/19/2017 COPD (chronic obstructive pulmonary disease) (H*11/19/2017 Current smoker [F17.200] 11/19/2017 Discharge planning issues [Z02.9] 11/19/2017 Severe protein-calorie malnutrition (HCC) [E43] 11/19/2017 Post-op pain [G89.18] 11/21/2017 Screening for colon cancer [Z12.11] 05/23/2021 05/23/2021 Encounter Status:Closed by ANUSHA MACEDO RN on 06/04/21 [facility] Jhoan 05-23-2021 [place] Telephone (Magali) ASHLEE MILLER ([id number]) 1950 F Date Time Provider Department 05/23/21 NOE MASSEY During your visit today, we recorded the following information about you: German Connor RN 05/23/2021 1:41 PM Signed Patient's , Jaime, called. Ashlee had a colonoscopy completed today with Dr. Massey. He advised that he brought her home and she was sleeping, but she just woke up and is complaining of severe abdominal pain and she is nauseated and is dry heaving. Advised that the dry heaving and nausea is probably related to the anesthesia that she received during the procedure and the abdominal pain is probably related to the air that is put in the colon so the provider can see the gillette. Advised that, although I understand that she is not feeling well, getting up and moving will help her to pass gas and relieve the abdominal pain. He asked if she was allowed to have water. I advised that, since she is nauseated, to start with ice chips and if she can keep those down, they may proceed with water. Advised Jaime that if she is unable to keep any fluids down, or if her abdominal pain gets any worse, they should have her evaluated at the emergency room. Jaime was also questioning whether I knew which arm they used for her IV, since she has a history of right sided breast cancer. I advised that I was sorry, but I did not have access to the medical records from the procedure. Advised to please call if they had any further concerns. ITZ Ha III, MD 05/28/2021 1:56 PM Signed Please give the patient a call back and make sure she is doing okay. Sounds like she was just having gas pain. German Connor RN 05/28/2021 2:08 PM Signed Called patient. She advised that she was feeling much better and thanked me for calling and checking in her. Advised that if there was anything else that we can do for her, please let us know. German Connor RN Allergies As of Date: 05/23/2021 (No Known Allergies) Date Reviewed: 05/23/2021 Reviewed by: Tess Coleman RN - Fully Assessed Reason for Visit: Patient Question [1137] Prescriptions as of 05/30/2021 - albuterol HFA (PROVENTIL HFA, VENTOLIN HFA) 90 mcg/actuation inhaler INHALE 2 (TWO) PUFFS EVERY 4 HOURS NEEDED FOR SHORTNESS OF BREATH OR FOR WHEEZING - mrpjoagbtbt-mmipthvka-pzgsq ter 100-62.5-25 mcg Trelegy Ellipta 100 mcg-62.5 mcg-25 mcg powder for inhalation - ipratropium-albuterol (DUONEB) 0.5 mg-3 mg(2.5 mg base)/3 mL nebu Inhale as instructed. - acetaminophen (TYLENOL) 500 mg tablet Take 2 tablets by mouth every 8 hours. - polyethylene glycol 3350 (MIRALAX, GLYCOLAX) 17 gram packet Take 1 Packet by mouth once daily. - ibuprofen (MOTRIN) 400 mg tablet Take 1 tablet by mouth every 6 hours as needed. - magnesium hydroxide (MOM) 400 mg/5 mL suspension Take 30 mL by mouth daily at bedtime. - alendronate (FOSAMAX) 70 mg tablet Problem List As Of Date 05/23/2021 Noted Resolved Lt VATS, bullectomy, Doxycycline pleurodesis [*11/18/2017 History of breast cancer [Z85.3] 11/19/2017 COPD (chronic obstructive pulmonary disease) (H*11/19/2017 COPD (chronic obstructive pulmonary disease) (H*11/19/2017 Current smoker [F17.200] 11/19/2017 Discharge planning issues [Z02.9] 11/19/2017 Severe protein-calorie malnutrition (HCC) [E43] 11/19/2017 Post-op pain [G89.18] 11/21/2017 Screening for colon cancer [Z12.11] 05/23/2021 05/23/2021 Encounter Status:Closed by GERMAN CONNOR on 05/30/21 [facility] HISTORY PHYSICALon HISTORY PHYSICAL HNO ID: [id number] Author: Noe Massey MD Service: General Surgery Author Type: Physician Type: HANDP Filed: 05/23/2021 8:32 AM Note Text: UPDATED HISTORY AND PHYSICAL EXAMINATION SERVICE DATE: 05/23/2021 SERVICE TIME: 8:32 AM PHYSICAL EXAM MUST BE COMPLETED ON ADMISSION The History and Physical (completed in the past 30 days) has been reviewed and the patient has been examined. The contents accurately reflect the patient's condition with the following additions or revisions since the HANDP was completed. Examination indicates no changes. This HANDP can be found in the Electronic Medical Record dated 04/30/21. SIGNATURE: Noe Massey III, MD PATIENT NAME: Ashlee Miller DATE: May 23, 2021 TIME: 8:32 AM [facility] NURSING PROGon 05-23-2021 NURSING PROG HNO ID: [id number] Author: Tess Coleman RN Service: ? Author Type: Registered Nurse Type: Nursing Progress Note Filed: 05/23/2021 10:28 AM Note Text: Pt states passed a little bit of air rectally. Abd just slightly tender upon palpation. Pt states feels better and denies cramping, pain or nausea. Given snack and drink. Tess Coleman RN [facility] NURSING PROG HNO ID: [id number] Author: Tess Coleman RN Service: ? Author Type: Registered Nurse Type: Nursing Progress Note Filed: 05/23/2021 10:23 AM Note Text: Pt still c/o some intermittent abd cramping. Abd firm but unsure if this is normal for pt due to being so thin. Does not appear to be distended but pt c/o tenderness upon palpation to abd. Ambulated to bathroom with assistance to see if pt can pass air rectally that way. Tess Coleman RN [facility] NURSING PROG HNO ID: [id number] Author: Tess Coleman RN Service: ? Author Type: Registered Nurse Type: Nursing Progress Note Filed: 05/23/2021 9:46 AM Note Text: Abd remains firm, tender to palpation but appears non distended. Encouraged to pass air rectally. Tess Coleman RN [facility] NURSING PROG HNO ID: [id number] Author: Tess Coleman RN Service: ? Author Type: Registered Nurse Type: Nursing Progress Note Filed: 05/23/2021 9:22 AM Note Text: Pt received in PACU. Pt extremely drowsy, but will arouse slightly. Appears comfortable. Abd firm and appears non distended. Tess Coleman RN [facility] NURSING PROG HNO ID: [id number] Author: Linsey Anderson RN Service: Nursing Author Type: Registered Nurse Type: Nursing Progress Note Filed: 05/23/2021 8:39 AM Note Text: [facility] PRE-OP NURSING HAND OFF NOTE SBAR Hand off given to Renuka Roman RN. Hand off was communicated verbally and at the patient's bedside and all questions were answered. Linsey Anderson RN [facility] SURGICAL PATHOLOGYon SURGICAL PATHOLOGY Specimen originated from [facility] Specimen #: [id number] Submitting Physician: NOE MASSEY ([id number]) FINAL DIAGNOSIS 1. Desending colon polyp, biopsy (A) - Tubular adenoma. 2. Sigmoid colon, polyp, biopsy (B) - Tubular adenoma. SR/MN 05/24/2021 Deshawn Potter MD, Ph.D. (Electronic Signature) SPECIMEN SUBMITTED A: DESCENDING COLON POLYP B: SIGMOID COLON POLYP CLINICAL DATA HISTORY OF POLYPS, LMP: N/A FORCEP GROSS DESCRIPTION A. Received in formalin is one piece of valverde, soft tissue measuring 0.2 x 0.2 x 0.2 cm. Totally submitted in one cassette. B. Received in formalin are multiple pieces of valverde, soft tissue aggregating to 1.0 x 0.3 x 0.2 cm. Totally submitted in one cassette. Gross examination performed at [facility], [address] [place] [address] 05/23/2021 5:05:31 PM Date of Report: 05/24/2021 Date of Procedure: 05/23/2021 Date of Receipt: 05/23/2021 Submitted by: NOE MASSEY ([id number]) Location: [id number] Diagnostic interpretation performed at [facility], [address] [place] [id number]. CLIA Number: [id number] [facility] CNOVon 04-30-2021 CNOV Office Visit (GENSWS ) ASHLEE MILLER ([id number]) 1950 F Date Time Provider Department 04/30/21 8:30 AM PATRICIA ARAYA During your visit today, we recorded the following information about you: Temperature Pulse Blood pressure Weight 97.8 degrees 81/minute 104/70 38.6 kg Height 1.626 m Patricia Araya PA-C 04/30/2021 11:41 AM Signed HISTORY AND PHYSICAL Ashlee Miller 1950 REFERRING PHYSICIAN: Deshawn Torrez MD CHIEF COMPLAINT: Consult (colonoscopy consult) HPI: The patient is a 70 year old female referred for endoscopy. Ashlee notes no colon complaints. Patient denies any change in bowel habits, weight changes, blood in stools, black tarry stools or abdominal pain. Denies family history of colon issues. The patient notes no upper GI complaints. Ashlee has undergone prior endoscopy. Per PCP notes, most recent colonoscopy was performed by Dr. Massey at [facility] in 04/2017 with finding of tubular [...] GUIDED 1999 - COLONOSCOP W/ OR W/O [facility] SPEC unsure of date - GI SMALL BOWEL MULTIPLE SERIES 2006 - PAST SURGICAL HISTORY OF Left 11/20/2017 Lt VATS, bullectomy, Doxycycline pleurodesis - PNEUMOTHORAXCHEST TUBE 11/17/2017 left pneumocath placement [facility] Current Outpatient Medications Medication Sig - [...] entered by the nurse and reviewed by ks Nursing Notes: German Connor RN 04/30/2021 9:38 AM Signed REVIEW [...] head/spinal injuries, and denies stroke/TIA. Psychiatric: The (more content not included)... [facility] Tele[facility] (Light Chaser Animation) ASHLEE MILLER ([id number]) 1950 F Date Time Provider Department 04/30/21 NOE MASSEY During your visit today, we recorded the following information about you: Ankit Floyd 04/30/2021 9:49 AM Signed 05-23-2021 [facility] SURGICAL PHONE NOTE Date of Procedure/Surgery: 05-23-2021 Procedure/Surgery Type: COLONOSCOPY ? SEDATION:Local Sedation Location of Planned Procedure/Surgery: ? [facility] Surgery/Procedure Ordered: Yes COVID Testing Required: (FOR MAC CASES AND ASC PROCEDURES OTHER THAN COLON AND EGD): No Pre-Op Clearance Needed: No Prep Ordered:No Prep Instructions given:No Referral Completed:PAVE to complete. Patient Diabetic:No. Medication Considerations: Patient on blood Thinners: No Any other meds that need to be held: No Pacemaker or Defibrillator:No Patient/Family Informed of above information and given directions regarding location/arrival: Yes: Patient Transportation Considerations: No Other Important Information: No Any physical limitations: No Any cognitive limitations: No Roller Inspector/Supervisor Winding Department required: No Communication Limitations: No Allergies As of Date: 04/30/2021 (No Known Allergies) Date Reviewed: 04/30/2021 Reviewed by: Patricia Araya PA-C - Fully Assessed Reason for Visit: Colon [Other] Primary Visit Diagnosis:Encounter for screening for malignant neoplasm of colon [Z12.11] Other Visit Diagnosis:History of colonic polyps [Z86.010] Order(s):[] peg 3350-Electrolytes (GOLYTELY) 236-22.74-6.74 -5.86 gram suspensionTake 4,000 mL by mouth one time only for 1 dose.Disp: 1 EachRfl: 0 COLONOSCOPY, SCREENING, HIGH RISK [[id number]] Order #: [id number]. #:[id number] Prescriptions as of 05/23/2021 - albuterol HFA (PROVENTIL HFA, VENTOLIN HFA) 90 mcg/actuation inhaler INHALE 2 (TWO) PUFFS EVERY 4 HOURS NEEDED FOR SHORTNESS OF BREATH OR FOR WHEEZING - wvhbbkzmbbk-mavgpgnxo-lsrar ter 100-62.5-25 mcg Trelegy Ellipta 100 mcg-62.5 mcg-25 mcg powder for inhalation - ipratropium-albuterol (DUONEB) 0.5 mg-3 mg(2.5 mg base)/3 mL nebu Inhale as instructed. - acetaminophen (TYLENOL) 500 mg tablet Take 2 tablets by mouth every 8 hours. - polyethylene glycol 3350 (MIRALAX, GLYCOLAX) 17 gram packet Take 1 Packet by mouth once daily. - ibuprofen (MOTRIN) 400 mg tablet Take 1 tablet by mouth every 6 hours as needed. - magnesium hydroxide (MOM) 400 mg/5 mL suspension Take 30 mL by mouth daily at bedtime. - alendronate (FOSAMAX) 70 mg tablet Problem List As Of Date 04/30/2021 Noted Resolved Lt VATS, bullectomy, Doxycycline pleurodesis [*11/18/2017 History of breast cancer [Z85.3] 11/19/2017 COPD (chronic obstructive pulmonary disease) (H*11/19/2017 COPD (chronic obstructive pulmonary disease) (H*11/19/2017 Current smoker [F17.200] 11/19/2017 Discharge planning issues [Z02.9] 11/19/2017 Severe protein-calorie malnutrition (HCC) [E43] 11/19/2017 Post-op pain [G89.18] 11/21/2017 Prescriptions ordered this encounter Disp Refills Start End PEG 3350-ELECTROLYTES 236 GRAM-22.74* 1 Ea* 0 05/13/2021 05/13/2021 Route: ORAL Sig: Take 4,000 mL by mouth one time only for 1 dose. Encounter Status:Closed by ANKIT FLOYD on 05/23/21 [facility] HOSPon 04-30-2021 HOSP Patient:Ashlee Miller MRN: Height:5' 4(1.626 m) Weight:85 lb (38.556 kg) Outpatient Medications as of 05/23/21: albuterol HFA (PROVENTIL HFA, VENTOLIN HFA) 90 mcg/actuation inhaler dvimubwaoby-qlvqfbcua-wwpjd ter 100-62.5-25 mcg ipratropium-albuterol (DUONEB) 0.5 mg-3 mg(2.5 mg base)/3 mL nebu acetaminophen (TYLENOL) 500 mg tablet polyethylene glycol 3350 (MIRALAX, GLYCOLAX) 17 gram packet ibuprofen (MOTRIN) 400 mg tablet magnesium hydroxide (MOM) 400 mg/5 mL suspension alendronate (FOSAMAX) 70 mg tablet Admission/Clinic Administered Medications as of 05/23/21: Patient has no admission medications. Problem List: Lt VATS, bullectomy, Doxycycline pleurodesis [J93.9] History of breast cancer [Z85.3] COPD (chronic obstructive pulmonary disease) (HCC) [J44.9] COPD (chronic obstructive pulmonary disease) (HCC) [J44.9] Current smoker [F17.200] Discharge planning issues [Z02.9] Severe protein-calorie malnutrition (HCC) [E43] Post-op pain [G89.18] Screening for colon cancer [Z12.11] Allergies: No Known Allergies Date Verified:05/23/21 Lab Values No results within the last 30 days for the following basenames: K,HCT Progress Notes ([facility]): Ankit Floyd 04/30/2021 9:49 AM Signed 05-23-2021 [facility] SURGICAL PHONE NOTE Date of Procedure/Surgery: 05-23-2021 Procedure/Surgery Type: COLONOSCOPY ? SEDATION:Local Sedation Location of Planned Procedure/Surgery: ? [facility] Surgery/Procedure Ordered: Yes COVID Testing Required: (FOR MAC CASES AND ASC PROCEDURES OTHER THAN COLON AND EGD): No Pre-Op Clearance Needed: No Prep Ordered:No Prep Instructions given:No Referral Completed:PAVE to complete. Patient Diabetic:No. Medication Considerations: Patient on blood Thinners: No Any other meds that need to be held: No Pacemaker or Defibrillator:No Patient/Family Informed of above information and given directions regarding location/arrival: Yes: Patient Transportation Considerations: No Other Important Information: No Any physical limitations: No Any cognitive limitations: No Roller Inspector/Supervisor Winding Department required: No Communication Limitations: No Progress Notes ([facility]): Patricia Araya PA-C 04/30/2021 11:41 AM Signed HISTORY AND PHYSICAL Ashlee Miller 1950 REFERRING PHYSICIAN: Deshawn Torrez MD CHIEF COMPLAINT: Consult (colonoscopy consult) HPI: The patient is a 70 year old female referred for endoscopy. Ashlee notes no colon complaints. Patient denies any change in bowel habits, weight changes, blood in stools, black tarry stools or abdominal pain. Denies family history of colon issues. The patient notes no upper GI complaints. Ashlee has undergone prior endoscopy. Per PCP notes, most recent colonoscopy was performed by Dr. Massey at [facility] in 04/2017 with finding of tubular [...] GUIDED 1999 - COLONOSCOP W/ OR W/O [facility] SPEC unsure of date - GI SMALL BOWEL MULTIPLE SERIES 2006 - PAST SURGICAL HISTORY OF Left 11/20/2017 Lt VATS, bullectomy, Doxycycline pleurodesis - PNEUMOTHORAXCHEST TUBE 11/17/2017 left pneumocath placement [facility] Current Outpatient Medications Medication Sig - [...] use: Not on file FAMILY HISTORY: No (more content not included)... Normal [facility] Cells counted Molgen (Bld/Ti ss) [#]on 08-18-2018 Differential Total Cells Counted Not Reportable [facility] Erythrocyte distribution wid th (RBC) [Entitic vol]on 08-18-2018 Red Cell Distribution Width Diff 46.5 fl High 35.1-43.9 [facility] Erythrocyte distribution wid th standard deviationon 08-18-2018 Erythrocyte distribution width (RBC) [Entitic vol] 46.5 fL High 35.1-43.9 [facility] Laboratory - Hematology and Cell countson 08-18-2018 Erythrocyte distribution width (RBC) [Ratio] 13.7 % 11.6-14.6 [facility] Total cell counton 9 Cells counted Molgen (Bld/Tiss) [#] Not Reportable [facility] Laboratory - Hematology and Cell countson 04-16-2017 Anisocytosis Ql (Bld) 1+ [facility] Iron (Unsp spec) [Mass/Mass] on 03-26-2017 Iron [Mass/Vol] 41 ug/dL Low 50-170 [facility] Iron measurement (mass/mass) on 03-26-2017 Iron (Unsp spec) [Mass/Mass] 41 ug/dL Low 50-170 [facility] Iron saturation [Mass fracti on]on 03-26-2017 Iron Saturation 11.5 % Low 15.0-55.0 [facility] No Panel Informationon 03-26 Total Iron Binding Capacity 357 ug/dL 250-450 [facility] Serum or plasma ferritin ratna surement (mass/volume)on 03-26-2017 Ferritin [Mass/Vol] 49 ng/mL 8-252 [facility] Serum or plasma iron saturat ion measurement (mass fraction)on 03-26-2017 Iron saturation [Mass fraction] 11.5 % Low 15.0-55.0 [facility] Vital Signs Date Time Vital Sign Value Performing Clinician Facility 04-05-2025 10:28-0400 Body height 162.56 cm Lena JUAREZ Work Phone: [facility] 04-05-2025 10:28-0400 Body mass index (BMI) [Ratio] 12.5 kg/m2 Lena JUAREZ Work Phone: [facility] 04-05-2025 10:28-0400 Body temperature 98.8 [degF] Lena JUAREZ Work Phone: [facility] 04-05-2025 10:28-0400 Body weight 33.11 kg Lena Erick EL TEACHER-C Work Phone: [facility] 04-05-2025 10:28-0400 Diastolic blood pressure 59 mm[Hg] Lena Erick EL TEACHER-C Work Phone: [facility] 04-05-2025 10:28-0400 Heart rate 100 /min Lena Erick EL TEACHER-C Work Phone: [facility] 04-05-2025 10:28-0400 Inhaled oxygen flow rate 3 L/min Lena Erick EL TEACHER-C Work Phone: [facility] 04-05-2025 10:28-0400 Respiratory rate 18 /min Lena Erick EL TEACHER-C Work Phone: [facility] 04-05-2025 10:28-0400 SaO2% (BldA) [Mass fraction] 98 % Lena Erick EL TEACHER-C Work Phone: [facility] 04-05-2025 10:28-0400 Systolic blood pressure 98 mm[Hg] Lena Erick EL TEACHER-C Work Phone: [facility] 02-17-2025 08:11-0400 Body mass index (BMI) [Ratio] 12 kg/m2 Lena Erick EL TEACHER-C Work Phone: [facility] 02-17-2025 08:11-0400 Body temperature 97.1 [degF] Lena Erick EL TEACHER-C Work Phone: [facility] 02-17-2025 08:11-0400 Body weight 31.75 kg Lena Erick EL TEACHER-C Work Phone: [facility] 02-17-2025 08:11-0400 Heart rate 101 /min Lena Erick EL TEACHER-C Work Phone: [facility] 02-17-2025 08:11-0400 Inhaled oxygen flow rate 3 L/min Lena Erikc EL TEACHER-C Work Phone: [facility] 02-17-2025 08:11-0400 Respiratory rate 18 /min Lena Erick EL TEACHER-C Work Phone: [facility] 02-17-2025 08:11-0400 SaO2% (BldA) [Mass fraction] 99 % Lena Erick EL TEACHER-C Work Phone: [facility] 02-03-2025 14:05-0400 Body height 162.56 cm Lenadwight Suarez EL TEACHER-C Work Phone: [facility] 02-03-2025 14:05-0400 Body weight 31.75 kg Lena Erick EL TEACHER-C Work Phone: [facility] 02-03-2025 14:05-0400 Heart rate 115 /min Lena Erick EL TEACHER-C Work Phone: [facility] 02-03-2025 14:05-0400 Inhaled oxygen flow rate 2 L/min Lena Bauergar EL TEACHER-C Work Phone: [facility] 02-03-2025 14:05-0400 SaO2% (BldA) [Mass fraction] 95 % Lena Suarez EL TEACHER-C Work Phone: [facility] 01-24-2025 12:28-0400 Body mass index (BMI) [Ratio] 12.1 kg/m2 Lena Erick EL TEACHER-C Work Phone: [facility] 01-24-2025 12:28-0400 Body temperature 97.3 [degF] Lena Erick EL TEACHER-C Work Phone: [facility] 01-24-2025 12:28-0400 Body weight 31.97 kg Lena Erick EL TEACHER-C Work Phone: [facility] 01-24-2025 12:28-0400 Diastolic blood pressure 69 mm[Hg] Lena Erick EL TEACHER-C Work Phone: [facility] 01-24-2025 12:28-0400 Heart rate 106 /min Lena Erick EL TEACHER-C Work Phone: [facility] 01-24-2025 12:28-0400 Inhaled oxygen flow rate 3 L/min Lena Erick EL TEACHER-C Work Phone: [facility] 01-24-2025 12:28-0400 Respiratory rate 20 /min Lena Erick EL TEACHER-C Work Phone: [facility] 01-24-2025 12:28-0400 SaO2% (BldA) [Mass fraction] 87 % Lena Erick EL TEACHER-C Work Phone: [facility] 01-24-2025 12:28-0400 Systolic blood pressure 119 mm[Hg] Lena Erick EL TEACHER-C Work Phone: [facility] 01-23-2025 13:21-0400 Body temperature 97.5 [degF] Lena Erick EL TEACHER-C Work Phone: [facility] 01-23-2025 13:21-0400 Diastolic blood pressure 57 mm[Hg] Lena Erick EL TEACHER-C Work Phone: [facility] 01-23-2025 13:21-0400 Heart rate 101 /min Lena Erick EL TEACHER-C Work Phone: [facility] 01-23-2025 13:21-0400 Respiratory rate 16 /min Lena Erick EL TEACHER-C Work Phone: [facility] 01-23-2025 13:21-0400 SaO2% (BldA) [Mass fraction] 99 % Lena Erick EL TEACHER-C Work Phone: [facility] 01-23-2025 13:21-0400 Systolic blood pressure 127 mm[Hg] Lena Erick EL TEACHER-C Work Phone: [facility] 01-23-2025 13:00-0400 Body height 162.56 cm Lena Erick EL TEACHER-C Work Phone: [facility] 01-23-2025 13:00-0400 Body mass index (BMI) [Ratio] 12 kg/m2 Lenadwight Suarez EL TEACHER-C Work Phone: [facility] 01-23-2025 13:00-0400 Body weight 31.75 kg Lenadwight Suarez EL TEACHER-C Work Phone: [facility] 01-16-2025 12:15-0400 Inhaled oxygen flow rate 3 L/min Lena Erick EL TEACHER-C Work Phone: [facility] 01-11-2025 15:57-0400 Body height 160.02 cm Lena Erick EL TEACHER-C Work Phone: [facility] 01-11-2025 15:57-0400 Body mass index (BMI) [Ratio] 12.4 kg/m2 Lena Erick EL TEACHER-C Work Phone: [facility] 01-11-2025 15:57-0400 Body temperature 98.7 [degF] Lena Suarez EL TEACHER-C Work Phone: [facility] 01-11-2025 15:57-0400 Body weight 31.89 kg Lena Erick EL TEACHER-C Work Phone: [facility] 01-11-2025 15:57-0400 Diastolic blood pressure 64 mm[Hg] Lena Erick EL TEACHER-C Work Phone: [facility] 01-11-2025 15:57-0400 Heart rate 115 /min Lena Erick EL TEACHER-C Work Phone: [facility] 01-11-2025 15:57-0400 Inhaled oxygen flow rate 3 L/min Lena Erick EL TEACHER-C Work Phone: [facility] 01-11-2025 15:57-0400 Respiratory rate 18 /min Lena Erick EL TEACHER-C Work Phone: [facility] 01-11-2025 15:57-0400 SaO2% (BldA) [Mass fraction] 99 % Lena Erick EL TEACHER-C Work Phone: [facility] 01-11-2025 15:57-0400 Systolic blood pressure 114 mm[Hg] Lena Erick EL TEACHER-C Work Phone: [facility] 12-28-2024 11:33-0400 Body height 160.02 cm Lena Erick EL TEACHER-C Work Phone: [facility] 12-28-2024 11:33-0400 Body mass index (BMI) [Ratio] 12.1 kg/m2 Lena Erick EL TEACHER-C Work Phone: [facility] 12-28-2024 11:33-0400 Body weight 31.09 kg Lena Erick EL TEACHER-C Work Phone: [facility] 12-28-2024 11:33-0400 Diastolic blood pressure 60 mm[Hg] Lena Erick EL TEACHER-C Work Phone: [facility] 12-28-2024 11:33-0400 Heart rate 99 /min Lena Erick EL TEACHER-C Work Phone: [facility] 12-28-2024 11:33-0400 Inhaled oxygen flow rate 2 L/min Lena Erick EL TEACHER-C Work Phone: [facility] 12-28-2024 11:33-0400 Respiratory rate 14 /min Lena Erick EL TEACHER-C Work Phone: [facility] 12-28-2024 11:33-0400 SaO2% (BldA) [Mass fraction] 98 % Lena Erick EL TEACHER-C Work Phone: [facility] 12-28-2024 11:33-0400 Systolic blood pressure 110 mm[Hg] Lena Erick EL TEACHER-C Work Phone: [facility] 12-09-2024 06:22-0400 Body mass index (BMI) [Ratio] 12.4 kg/m2 Lena Erick EL TEACHER-C Work Phone: [facility] 12-09-2024 06:22-0400 Body temperature 97.2 [degF] Lena Erick EL TEACHER-C Work Phone: [facility] 12-09-2024 06:22-0400 Body weight 31.75 kg Lena Suarez EL TEACHER-C Work Phone: [facility] 12-09-2024 06:22-0400 Diastolic blood pressure 69 mm[Hg] Lenadwight Suarez EL TEACHER-C Work Phone: [facility] 12-09-2024 06:22-0400 Heart rate 100 /min Lenadwight Suarez EL TEACHER-C Work Phone: [facility] 12-09-2024 06:22-0400 Inhaled oxygen flow rate 2 L/min Lena Suarez EL TEACHER-C Work Phone: [facility] 12-09-2024 06:22-0400 Respiratory rate 18 /min Lena Suarez EL TEACHER-C Work Phone: [facility] 12-09-2024 06:22-0400 SaO2% (BldA) [Mass fraction] 96 % Lena Suarez EL TEACHER-C Work Phone: [facility] 12-09-2024 06:22-0400 Systolic blood pressure 117 mm[Hg] Lena Suarez EL TEACHER-C Work Phone: [facility] 08-10-2024 09:00-0500 Body mass index (BMI) [Ratio] 12.2 kg/m2 Lena Suarez EL TEACHER-C Work Phone: [facility] 08-10-2024 09:00-0500 Body temperature 97.9 [degF] Lena Suarez EL TEACHER-C Work Phone: [facility] 08-10-2024 09:00-0500 Body weight 31.29 kg Lena Suarez EL TEACHER-C Work Phone: [facility] 08-10-2024 09:00-0500 Diastolic blood pressure 60 mm[Hg] Lena Erick EL TEACHER-C Work Phone: [facility] 08-10-2024 09:00-0500 Heart rate 122 /min Lena Erick EL TEACHER-C Work Phone: [facility] 08-10-2024 09:00-0500 Inhaled oxygen flow rate 3 L/min Lena Erick EL TEACHER-C Work Phone: [facility] 08-10-2024 09:00-0500 Respiratory rate 20 /min Lena Erick EL TEACHER-C Work Phone: [facility] 08-10-2024 09:00-0500 SaO2% (BldA) [Mass fraction] 99 % Lena Erick EL TEACHER-C Work Phone: [facility] 08-10-2024 09:00-0500 Systolic blood pressure 98 mm[Hg] Lena Erick EL TEACHER-C Work Phone: [facility] 07-20-2024 06:31-0500 Body height 160.02 cm Lena Erick EL TEACHER-C Work Phone: [facility] 07-20-2024 06:31-0500 Body mass index (BMI) [Ratio] 12.4 kg/m2 Lena Erick EL TEACHER-C Work Phone: [facility] 07-20-2024 06:31-0500 Body temperature 98.1 [degF] Lena Erick EL TEACHER-C Work Phone: [facility] 07-20-2024 06:31-0500 Body weight 31.75 kg Lena Erick EL TEACHER-C Work Phone: [facility] 07-20-2024 06:31-0500 Diastolic blood pressure 58 mm[Hg] Lena Erick EL TEACHER-C Work Phone: [facility] 07-20-2024 06:31-0500 Heart rate 111 /min Lena Erick EL TEACHER-C Work Phone: [facility] 07-20-2024 06:31-0500 Inhaled oxygen flow rate 3 L/min Lena Erick EL TEACHER-C Work Phone: [facility] 07-20-2024 06:31-0500 Respiratory rate 20 /min Lena Erick EL TEACHER-C Work Phone: [facility] 07-20-2024 06:31-0500 SaO2% (BldA) [Mass fraction] 100 % Lena Erick EL TEACHER-C Work Phone: [facility] 07-20-2024 06:31-0500 Systolic blood pressure 107 mm[Hg] Lena Erick EL TEACHER-C Work Phone: [facility] 01-04-2024 11:14-0400 Body weight 33.16 kg Lena Erick EL TEACHER-C Work Phone: [facility] 08-23-2023 08:48-0500 Body temperature 97.1 [degF] [facility] 08-23-2023 08:48-0500 Diastolic blood pressure 55 mm[Hg] [facility] 08-23-2023 08:48-0500 Heart rate 65 /min [facility] 08-23-2023 08:48-0500 Respiratory rate 19 /min [facility] 08-23-2023 08:48-0500 SaO2% (BldA) [Mass fraction] 100 % [facility] 08-23-2023 08:48-0500 Systolic blood pressure 110 mm[Hg] [facility] 08-23-2023 06:13-0500 Body height 160.02 cm [facility] 08-23-2023 06:13-0500 Body mass index (BMI) [Ratio] 13.2 kg/m2 [facility] 08-23-2023 06:13-0500 Body weight 34 kg [facility] 08-23-2023 06:13-0500 Inhaled oxygen flow rate 4 L/min [facility] 06-21-2023 10:08-0500 Diastolic blood pressure 71 mm[Hg] Dr. Jaida Kwong Work Phone: [facility] 06-21-2023 10:08-0500 Heart rate 87 /min Dr. Jaida Kwong Work Phone: [facility] 06-21-2023 10:08-0500 Respiratory rate 21 /min Dr. Jaida Kwong Work Phone: [facility] 06-21-2023 10:08-0500 SaO2% (BldA) [Mass fraction] 95 % Dr. Jaida Kwong Work Phone: [facility] 06-21-2023 10:08-0500 Systolic blood pressure 139 mm[Hg] Dr. Jaida Kwong Work Phone: [facility] 06-21-2023 09:25-0500 Body mass index (BMI) [Ratio] 13.4 kg/m2 Dr. Jaida Kwong Work Phone: [facility] 06-21-2023 09:25-0500 Body weight 34.[address] Jaida Kwong Work Phone: [facility] 06-21-2023 09:23-0500 Body height 160.[address] Jaida Kwong Work Phone: [facility] 06-21-2023 09:23-0500 Body temperature 97.9 [degF] Dr. Jaida Kwong Work Phone: [facility] 04-06-2023 12:43-0400 Body mass index (BMI) [Ratio] 13 kg/m2 Dr. Jaida Kwong Work Phone: [facility] 04-06-2023 12:43-0400 Body temperature 97.1 [degF] Dr. Jaida Kwong Work Phone: [facility] 04-06-2023 12:43-0400 Body weight 34.[address] Jaida Kwong Work Phone: [facility] 04-06-2023 12:43-0400 Diastolic blood pressure 74 mm[Hg] Dr. Jaida Kwong Work Phone: [facility] 04-06-2023 12:43-0400 Heart rate 87 /min Dr. Jaida Kwong Work Phone: [facility] 04-06-2023 12:43-0400 Respiratory rate 18 /min Dr. Jaida Kwong Work Phone: [facility] 04-06-2023 12:43-0400 SaO2% (BldA) [Mass fraction] 97 % Dr. Jaida Kwong Work Phone: [facility] 04-06-2023 12:43-0400 Systolic blood pressure 107 mm[Hg] Dr. Jaida Kwong Work Phone: [facility] 01-07-2023 14:32-0400 Body height 162.56 cm MD Fransico Bazzi Work Phone: [facility] 01-07-2023 14:32-0400 Body mass index (BMI) [Ratio] 13 kg/m2 MD Fransico Bazzi Work Phone: [facility] 01-07-2023 14:32-0400 Body temperature 97.9 [degF] MD Fransico Bazzi Work Phone: [facility] 01-07-2023 14:32-0400 Body weight 34.47 kg MD Fransico Bazzi Work Phone: [facility] 01-07-2023 14:32-0400 Diastolic blood pressure 77 mm[Hg] MD Fransico Bazzi Work Phone: [facility] 01-07-2023 14:32-0400 Heart rate 68 /min MD Fransico Bazzi Work Phone: [facility] 01-07-2023 14:32-0400 Respiratory rate 16 /min MD Fransico Bazzi Work Phone: [facility] 01-07-2023 14:32-0400 SaO2% (BldA) [Mass fraction] 97 % MD Fransico Bazzi Work Phone: 5(310)217-535228 [place] [address] 01-07-2023 14:32-0400 Systolic blood pressure 140 mm[Hg] MD Fransico Bazzi Work Phone: 5(859)224-584021 [place] [address] 12-01-2022 07:48-0400 Body mass index (BMI) [Ratio] 13 kg/m2 MD Fransico Bazzi Work Phone: 6(765)942-301421 [place] [address] 12-01-2022 07:48-0400 Body temperature 97 [degF] MD Fransico Bazzi Work Phone: 0(559)053-412721 [place] [address] 12-01-2022 07:48-0400 Body weight 34.47 kg MD Fransico Bazzi Work Phone: 8(925)905-732321 [place] [address] 12-01-2022 07:48-0400 Diastolic blood pressure 70 mm[Hg] MD Fransico Bazzi Work Phone: 0(555)053-993721 [place] [address] 12-01-2022 07:48-0400 Heart rate 99 /min MD Fransico Bazzi Work Phone: 3(274)921-413221 [place] [address] 12-01-2022 07:48-0400 Respiratory rate 18 /min MD Fransico Bazzi Work Phone: 4(477)402-147921 [place] [address] 12-01-2022 07:48-0400 SaO2% (BldA) [Mass fraction] 93 % MD Fransico Bazzi Work Phone: 7(109)104-570421 [place] [address] 12-01-2022 07:48-0400 Systolic blood pressure 122 mm[Hg] MD Fransico Bazzi Work Phone: 0(007)880-972821 [place] [address] 11-27-2022 13:50-0400 Body temperature 98.6 [degF] MD Fransico Bazzi Work Phone: 3(274)259-620528 [place] [address] 11-27-2022 13:50-0400 Diastolic blood pressure 75 mm[Hg] MD Fransico Bazzi Work Phone: 8(333)009-476821 [place] [address] 11-27-2022 13:50-0400 Heart rate 94 /min MD Fransico Bazzi Work Phone: [facility] 11-27-2022 13:50-0400 Inhaled oxygen flow rate 2 L/min MD Fransico Bazzi Work Phone: [facility] 11-27-2022 13:50-0400 Respiratory rate 20 /min MD Fransico Bazzi Work Phone: 3(671)223-563028 [place] [address] 11-27-2022 13:50-0400 SaO2% (BldA) [Mass fraction] 97 % MD Fransico Bazzi Work Phone: 0(642)372-676528 [place] [address] 11-27-2022 13:50-0400 Systolic blood pressure 136 mm[Hg] MD Fransico Bazzi Work Phone: [facility] 11-26-2022 21:08-0400 Inhaled oxygen concentration 3 % MD Fransico Bazzi Work Phone: 0(084)549-621528 [place] [address] 11-26-2022 11:44-0400 Body height 162.56 cm MD Fransico Bazzi Work Phone: 3(136)305-286828 [place] [address] 11-26-2022 11:44-0400 Body weight 35.06 kg MD Fransico Bazzi Work Phone: [facility] 11-25-2022 21:17-0400 Body mass index (BMI) [Ratio] 13.2 kg/m2 MD Fransico Bazzi Work Phone: [facility] 11-25-2022 20:00-0400 Body temperature 100.5 [degF] [facility] 11-25-2022 20:00-0400 Diastolic blood pressure 56 mm[Hg] [facility] 11-25-2022 20:00-0400 Heart rate 90 /min [facility] 11-25-2022 20:00-0400 Inhaled oxygen flow rate 3 L/min [facility] 11-25-2022 20:00-0400 Respiratory rate 17 /min [facility] 11-25-2022 20:00-0400 SaO2% (BldA) [Mass fraction] 99 % [facility] 11-25-2022 20:00-0400 Systolic blood pressure 113 mm[Hg] [facility] 11-25-2022 16:48-0400 Body mass index (BMI) [Ratio] 13.8 kg/m2 [facility] 11-25-2022 16:48-0400 Body weight 36.7 kg [facility] 11-25-2022 16:47-0400 Body height 162.56 cm [facility] 01-15-2022 13:38-0400 Body height 162.[address] Deshawn Torrez Work Phone: [facility] Work Phone: 01-15-2022 13:33-0400 Body mass index (BMI) [Ratio] 13.8 kg/m2 Dr. Deshawn Torrez Work Phone: [facility] Work Phone: 01-15-2022 13:33-0400 Body temperature 98.5 [degF] Dr. Deshawn Torrez Work Phone: [facility] Work Phone: 01-15-2022 13:33-0400 Body weight 36.[address] Deshawn Torrez Work Phone: [facility] Work Phone: 01-15-2022 13:33-0400 Diastolic blood pressure 69 mm[Hg] Dr. Deshawn Torrez Work Phone: [facility] Work Phone: 01-15-2022 13:33-0400 Heart rate 83 /min Dr. Deshawn Torrez Work Phone: [facility] Work Phone: 01-15-2022 13:33-0400 Respiratory rate 15 /min Dr. Deshawn Torrez Work Phone: [facility] Work Phone: 01-15-2022 13:33-0400 SaO2% (BldA) [Mass fraction] 97 % Dr. Deshawn Torrez Work Phone: [facility] Work Phone: 01-15-2022 13:33-0400 Systolic blood pressure 133 mm[Hg] Dr. Deshawn Torrez Work Phone: [facility] Work Phone: 01-18-2020 13:58-0400 Body mass index (BMI) [Ratio] 13.8 kg/m2 Dr. Deshawn Torrez Work Phone: [facility] 01-18-2020 13:58-0400 Body weight 36.[address] Deshawn Torrez Work Phone: [facility] Work Phone: 01-18-2020 13:58-0400 Diastolic blood pressure 73 mm[Hg] Dr. Deshawn Torrez Work Phone: [facility] 01-18-2020 13:58-0400 Heart rate 74 /min Dr. Deshawn Torrez Work Phone: [facility] 01-18-2020 13:58-0400 Respiratory rate 16 /min Dr. Deshawn Torrez Work Phone: [facility] 01-18-2020 13:58-0400 SaO2% (BldA) [Mass fraction] 99 % Dr. Deshawn Torrez Work Phone: [facility] 01-18-2020 13:58-0400 Systolic blood pressure 121 mm[Hg] Dr. Deshawn Torrez Work Phone: [facility] 08-03-2019 09:31-0500 Body temperature 98.9 [degF] Dr. Deshawn Torrez Work Phone: [facility] Encounters Encounter Date Encounter Type Care Provider Facility Start: 04-26-2025 [facility] Facility:[facility] Start: 04-05-2025 End: 04-05-[address] Donald Park MD -[facility] Work Phone: Start: 04-05-2025 End: [facility] Work [facility] -[facility] Start: 04-05-2025 End: 04-05-2025 Patient encounter procedure Tiffanie REEDER -Radiology [facility] Work Phone: Start: 04-05-2025 End: 04-05-2025 ambulatory Lena Erick Facility:[facility] Start: 03-29-[address] Donald Park MD -[facility] Start: 03-29-2025 ambulatory [facility] Facility:[facility] Start: 03-02-2025 End: 03-02-2025 Patient encounter procedure Tiffanie REEDER -[facility] Work Phone: Start: 03-02-2025 End: 03-02-2025 ambulatory Lena Suarez EL TEACHER-C Work Phone: -[facility] Start: 02-17-2025 End: 02-17-2025 ambulatory Lena Suarez EL TEACHER-C Work Phone: -[facility] Start: 02-17-2025 End: 02-17-2025 Patient encounter procedure FARZAD Ames -[facility] Work Phone: Start: 02-17-2025 End: 02-17-2025 ambulatory Sourav Finn Facility:[facility] Start: 02-09-2025 ambulatory Lena Erick Facility:[facility] Start: 02-09-2025 Non-patient / Non-visit Dr. Phuc Vega DO -[facility] Start: 02-03-2025 End: 02-03-2025 ambulatory Lena Suarez EL TEACHER-C Work Phone: -Pulmonary Services/Neurology Start: 02-03-2025 End: 02-03-2025 Patient encounter procedure EL TEACHER Kaylie Ames -Pulmonary Services/Neurology Work Phone: Start: 02-03-2025 End: 02-03-2025 ambulatory Lenadwight Suarez Facility:[facility] Start: 01-30-2025 End: 01-30-2025 ambulatory Lena Eirck EL TEACHER-C Work Phone: -Cat Scan [facility] Start: 01-30-2025 End: 01-30-2025 Patient encounter procedure FARZAD Ames [facility] Work Phone: Start: 01-30-2025 End: 01-30-2025 ambulatory Kaylie Ames Facility:[facility] Start: 01-24-2025 End: 01-24-2025 Patient encounter procedure EL TEACHER Kaylie Ames -[facility] Work Phone: Start: 01-24-2025 End: 01-24-2025 ambulatory Lena Erick EL TEACHER-C Work Phone: [facility] Start: 01-23-[address] Donald Park MD -[facility] Start: 01-11-2025 End: 01-11-[address] Donald Park MD -[facility] Work Phone: Start: 01-11-2025 End: 01-11-2025 ambulatory Lena Bauergar EL TEACHER-C Work Phone: [facility] Start: 01-02-[address] Donald Park MD -[facility] Start: 12-28-2024 End: 12-28-[address] Donald Park MD -[facility] Work Phone: Start: 12-28-2024 End: 12-28-2024 ambulatory Lena Erick EL TEACHER-C Work Phone: [facility] Start: 12-28-[address] Donald Park MD -[facility] Start: 12-09-2024 End: 12-09-2024 Patient encounter procedure FARZAD Ames [facility] Work Phone: Start: 12-09-2024 End: 12-09-2024 ambulatory Lena Erick EL TEACHER-C Work Phone: [facility] Work Phone: Start: 10-28-2024 End: 10-28-2024 ambulatory Lena Suarez EL TEACHER-C Work Phone: [facility] Work Phone: Start: 10-28-2024 End: 10-28-2024 [facility] Start: 10-28-2024 End: 10-28-2024 ambulatory Kaylie Ames Facility:[facility] Start: 09-12-2024 End: 09-12-2024 ambulatory Lena Erick EL TEACHER-C Work Phone: [facility] Work Phone: Start: 09-12-2024 End: 09-12-[address] Sourav Finn MD -Laboratory Work Phone: Start: 09-12-2024 End: 09-12-2024 ambulatory [facility] Facility:[facility] Start: 08-24-2024 End: 08-24-2024 ambulatory Lena Erick EL TEACHER-C Work Phone: [facility] Work Phone: Start: 08-24-2024 End: 08-24-[address] Sourav Finn MD -Laboratory, [facility] Start: 08-24-2024 End: 08-24-2024 ambulatory [facility] Facility:[facility] Start: 08-10-2024 End: 08-10-2024 Patient encounter procedure FARZAD Ames -[facility] Work Phone: Start: 08-10-2024 End: 08-10-2024 ambulatory Lena Suarez Facility:[facility] Start: 07-26-[address] Donald Park MD -[facility] Start: 07-20-2024 End: 07-20-2024 Patient encounter procedure FARZAD Ames -Laboratory, [facility] Start: 07-20-2024 End: 07-20-2024 Patient encounter procedure FARZAD Ames [facility] Work Phone: Start: 07-20-2024 End: 07-20-2024 ambulatory [facility] Facility:[facility] Start: 07-20-2024 End: 07-20-2024 ambulatory [facility] Facility:[facility] Start: 07-06-2024 End: 07-06-2024 Patient encounter procedure FARZAD Ames -Laboratory, [facility] Start: 07-06-2024 End: 07-06-2024 ambulatory [facility] Facility:[facility] Start: 07-01-2024 End: 07-01-2024 Patient encounter procedure Swetha Lawrence EL TEACHER-C -Cat Scan, [facility] Work Phone: Start: 07-01-2024 End: 07-01-2024 ambulatory [facility] Facility:[facility] Start: 06-10-2024 End: 06-10-[address] Del Salamanca MD -Physical Therapy Work Phone: Start: 06-10-2024 End: 06-10-2024 [facility] Facility:[facility] Start: 08-23-2023 End: 08-23-2023 Emergency department patient visit [facility]-Emergency Department Work Phone: Start: 06-21-2023 End: 06-21-2023 Emergency department patient visit Dr. Jaida Kwong Work Phone: [facility]-Emergency Department Work Phone: Start: 06-05-2023 End: 06-05-[address] Jaida Kwong Work Phone: [facility] Work Phone: Start: 06-05-2023 End: 06-05-[address] Jaida Kwong Work Phone: [facility]-Cat Scan, [facility] Work Phone: Start: 04-06-2023 End: 04-06-[address] Jaida Kwong Work Phone: [facility]-Pulmonary Medicine [facility] Work Phone: Start: 01-21-2023 End: 01-21-2023 ambulatory MD Fransico Bazzi Work Phone: [facility] Work Phone: Start: 01-21-2023 End: 01-21-2023 Patient encounter procedure MD Fransico Bazzi Work Phone: [facility] [facility] Start: 01-07-2023 End: 01-07-2023 Patient encounter procedure MD Fransico Bazzi Work Phone: [facility] Work Phone: Start: 01-07-2023 Registered Recurring MD Fransico avendano Work Phone: [facility] Start: 12-01-2022 End: 12-01-2022 Patient encounter procedure MD Fransico Bazzi Work Phone: [facility] Work Phone: Start: 11-27-2022 Non-patient / Non-visit MD Fransico Bazzi Work Phone: [facility] Start: 11-26-2022 Non-patient / Non-visit MD Fransico Bazzi Work Phone: [facility] Start: 11-25-2022 End: 11-27-2022 [facility] Start: 05-19-2022 End: 05-19-2022 ambulatory [facility] Work Phone: Start: 05-19-2022 End: 05-19-2022 Patient encounter procedure [facility] Start: 05-05-2022 End: 05-05-[address] Deshawn Torrez Work Phone: [facility] Work Phone: Start: 05-05-2022 End: 05-05-[address] [facility]ha[facility]rez [facility] Start: 01-22-2022 End: 01-22-[address] Deshawn Torrez Work Phone: [facility] Start: 01-15-[address] Deshawn Torrez Work Phone: [facility] Start: 01-15-2022 End: 01-15-[address] Deshawn Torrez Work Phone: [facility] Start: 07-08-2021 Telephone encounter Noe wasserman MD Work Phone: General Surgery Comment on above: 07/25/21 EGD Procedures Date Procedure Procedure Detail Performing Clinician Start: 04-05-2025 Upper gastrointestinal tract contrast procedure Lena Suarez [facility] Work Phone: Start: 03-29-2025 Estimated creatinine clearance Lena burleson [employer] Work Phone: Start: 03-29-2025 Serum inorganic phosphate measurement Ra titus Suarez [employer] Work Phone: Start: 03-29-2025 Total iron binding capacity measurement Lena Suarez [employer] Work Phone: Start: 02-17-2025 Procedure Lena Suarez [employer] Work Phone: Comment on above: Test Ordered: [id number] Voriconazole, Serum /PlasmaVoriconazole, Serum/Plasma <0.3 ug/mL BN Reference Range: .Verified by repeat analysisThe median values for the mean and maxiumum Voriconazoleplasma concentrations in individual patients were 2.51ug/mL (inter-quartile range 1.21 - 4.44 ug/mL) and 3.79ug/mL (inter-quartile range 2.06 -6.31 ug/mL),respectively. A trough serum concentration greater than0.5 to 2.0 ug/mL is recommended for treatment of fungalinfection, while a trough concentration greater than 0.5ug/mL is recommended for prophylaxis. Reversibleneurotoxicity has been reported in patients withVoriconazole trough concentrations above 5.5 ug/mL.This test was developed and its performancecharacteristics determined by [employer]. It has not beencleared or approved by the Food and Drug Administration.The FDA has determined that such clearance or approval isnot necessary.Performed at: [facility] [id number] Director: Summer Sims MD, Phone: [phone] at: [address] [id number] Director: Dakota Denise PhD, Phone: [phone] Start: 01-30-2025 CT of chest without contrast Lena Edga r [employer] Work Phone: Start: 01-02-2025 Measurement of occult blood in stool specimen using immunoassay Lena Suarez [employer] Work Phone: Start: 12-28-2024 Estimated creatinine clearance Lena Juancarlos sarah beth [employer] Work Phone: Start: 12-28-2024 Total iron binding capacity measurement Lena Suarez [employer] Work Phone: Start: 10-28-2024 CT of chest without contrast Lena Bauercece r [employer] Work Phone: Start: 07-26-2024 Positron emission tomography with computed tomography Lena Erick [employer] Work Phone: Start: 07-20-2024 Gram stain microscopy Lenadwight Suarez [employer] Work Phone: Start: 07-20-2024 Respiratory microbial culture Lena Altman ar [employer] Work Phone: Start: 07-06-2024 In-vitro immunologic test Lena Erick N P-C Work Phone: Comment on above: QuantiFERON-TB Gold Plus is a qualitativ e indirect test forM tuberculosis infection (including disease) and isintended for use in conjunction with risk assessment,radiography, and other medical and diagnostic evaluations.The QuantiFERON-TB Gold Plus result is determined bysubtracting the Nil value from either TB antigen (Ag)value. The Mitogen tube serves as a control for the test. No response to M tub erculosis antigens detected.Infection with M tuberculosis is unlikely, but high riskindividuals should be considered for additional testing(ATS/IDSA/CDC Clinical Practice Guidelines, 2017). Thereference range is an Antigen minus Nil result of <0.35IU/mL.The specimen received for QuantiFERON testing was incubatedby the ordering institution. Specific procedures outlinedin our Directory of Services and in the package insert forthe QuantiFERON Gold (In Tube) test must be followed toenable for proper stimulation of cells for the productionof interferon gamma. Chemiluminescence immunoassaymethodologyPerformed at: [facility] [address] [id number] Director: Dakota Denise PhD, Phone: [phone] Start: 07-01-2024 CT of chest Lena Suarez [employer] Work Phone: Start: 01-04-2024 Estimated creatinine clearance Lena burleson [employer] Work Phone: Start: 01-04-2024 Measurement of renal function Lena guzman [employer] TE[employer] Work Phone: Comment on above: GFR Calc Start: 08-23-2023 Plain chest X-ray Start: 06-21-2023 Plain chest X-ray Start: 06-05-[address] Jaida Kwong Work Phone: Start: 11-25-2022 Plain chest X-ray Start: 11-25-2022 Bacteria identified in Blood by Culture MD Fransico Bazzi Work Phone: Start: 11-25-2022 Legionella pneumophila antigen assay MD Fransico Bazzi Work Phone: Start: 11-25-2022 SARS-CoV-2 & FLU Antigen (Rapid) MD Fransico Bazzi Work Phone: Start: 11-25-2022 Streptococcus pneumoniae Antigen (M MD Nirav Bazzi Work Phone: Start: 05-19-2022 CT of chest Start: 05-05-2022 Plain chest X-ray Dr. Deshawn Torrez Work Phone: Start: 01-15-2022 Plain x-ray of pelvis and lower extremity Dr. Deshawn Torrez Work Phone: Start: 05-23-2021 Colonoscopy Noe Massey MD Work Phone: Plan of Treatment Date Care Activity Detail Author Start: 05-23-2026 Colonoscopy COLONOSCOPY [facility] Start: 05-23-2026 COLORECTAL CANCER SCREENING COLORECTAL CANCER SCREENING [facility] Start: 06-28-2025 Lactate dehydrogenase measurement [facility] Start: 06-28-2025 Reticulocyte count [facility] Start: 06-28-2025 Serum inorganic phosphate measurement [facility] Start: 02-17-2025 Procedure [facility] Start: 02-03-2025 Walking distance 6 minutes [facility] Start: 01-30-2025 Measurement of respiratory function [facility] Start: 12-28-2024 [facility] Start: 08-23-2023 [facility] Start: 06-21-2023 [facility] Start: 06-21-2023 Plain chest X-ray Chest PA and Lateral [facility] Start: 06-21-2023 XR Chest PA and Lateral [facility] Start: 04-06-2023 Patient referral [facility] Work Phone: Start: 11-27-2022 Patient discharge [facility] Start: 11-26-2022 [facility] Start: 11-25-2022 Assessment of risk of venous thromboembolism [facility] Start: 11-25-2022 Elevation of head of bed [facility] Start: 11-25-2022 Insertion of catheter into peripheral vein [facility] Start: 11-25-2022 Oxygen therapy [facility] Start: 11-25-2022 Patient education [facility] Start: 11-25-2022 Providing care according to standard [facility] Start: 11-25-2022 Provision of activity privileges [facility] Start: 11-25-2022 Referral to service [facility] Start: 11-25-2022 Following clinical pathway protocol [facility] Start: 11-25-2022 Patient referral to dietitian [facility] Start: 11-25-2022 Verification routine [facility] Start: 11-25-2022 Legionella pneumophila Ag [Presence] in Urine [facility] Start: 11-25-2022 Streptococcus pneumoniae antigen assay [facility] Start: 11-25-2022 End: 11-25-2022 [facility] Start: 11-25-2022 Admission procedure [facility] Start: 11-25-2022 Blood culture [facility] Start: 11-25-2022 Inhalation therapy procedure [facility] Start: 02-20-2022 Influenza vaccination INFLUENZA (Season Ended) [facility] Start: 01-15-2022 Patient referral [facility] Work Phone: Start: 01-15-2022 Venous catheter care management [facility] Start: 07-28-2021 COVID-19 VACCINE (4 - Booster for Pfizer series) COVID-19 VACCINE (4 - Booster for Pfizer series) [facility] Start: 06-22-2021 ADVANCE DIRECTIVE DISCUSSION ADVANCE DIRECTIVE DISCUSSION [facility] Start: 01-16-2021 Venous catheter care management [facility] Start: 11-24-2020 DIABETES SCREEN DIABETES SCREEN [facility] Start: 11-15-2020 Venous catheter care management [facility] Start: 08-22-2020 Venous catheter care management [facility] Start: 05-03-2019 Flushing of Port-a-cath [facility] Work Phone: Start: 05-03-2019 Irrigation of vascular catheter [facility] Start: 06-09-2018 FECAL OCCULT BLOOD FECAL OCCULT BLOOD [facility] Start: 05-25-2018 Flushing of Port-a-cath [facility] Work Phone: Start: 05-25-2018 Irrigation of vascular catheter [facility] Start: 03-31-2018 Flushing of Port-a-cath [facility] Work Phone: Start: 03-31-2018 Irrigation of vascular catheter [facility] Start: 02-17-2018 [facility] Start: 11-10-2017 Flushing of Port-a-cath [facility] Work Phone: Start: 11-10-2017 Irrigation of vascular catheter [facility] Start: 2017 BONE DENSITY BONE DENSITY [facility] Start: 04-23-2017 Disease process or condition education [facility] Start: 04-23-2017 Medication monitoring [facility] Start: 04-23-2017 Precautionary procedure [facility] Start: 04-23-2017 Vital signs measurements [facility] Start: 04-23-2017 [facility] Start: 04-09-2017 [facility] Start: 03-26-2017 [facility] Start: 03-26-2017 Disease process or condition education [facility] Start: 03-26-2017 Medication monitoring [facility] Start: 03-26-2017 Precautionary procedure [facility] Start: 03-26-2017 Vital signs measurements [facility] Start: 03-26-2017 [facility] Start: 03-05-2017 [facility] Start: 03-05-2017 Disease process or condition education [facility] Start: 03-05-2017 Medication monitoring [facility] Start: 03-05-2017 Precautionary procedure [facility] Start: 03-05-2017 Vital signs measurements [facility] Start: 03-05-2017 [facility] Start: 02-12-2017 [facility] Start: 02-12-2017 Disease process or condition education [facility] Start: 02-12-2017 Medication monitoring [facility] Start: 02-12-2017 Precautionary procedure [facility] Start: 02-12-2017 Vital signs measurements [facility] Start: 02-12-2017 [facility] Start: 2002 SHINGRIX VACCINE (1 of 2) SHINGRIX VACCINE (1 of 2) [facility] Start: 1997 COLOGUARD (FIT-DNA) COLOGUARD (FIT-DNA) [facility] Start: [address] COLONOGRAPHY [facility] Start: 1997 LIPID SCREEN LIPID SCREEN [facility] Start: 1997 SIGMOIDOSCOPY SIGMOIDOSCOPY [facility] Start: 1992 Mammography MAMMOGRAM [facility] Start: 08-28-1971 Urine microalbumin profile DTAP,TDAP,TD (1 - Tdap) [facility] Start: 1970 ANNUAL PCP TEAM CHRONIC DISEASE VISIT ANNUAL PCP TEAM CHRONIC DISEASE VISIT [facility] Start: 1970 HEPATITIS C SCREENING HEPATITIS C SCREENING [facility] Start: 1970 SPIROMETRY SPIROMETRY [facility] Start: 1964 Adult depression screening assessment DEPRESSION SCREENING [facility] Start: 1958 PNEUMOCOCCAL: 65+ (1 - PCV) [facility] inic Alanine aminotransfe rase [Enzymatic activity/volume] in Serum or Plasma [facility] Albumin [Mass/volume ] in Serum or Plasma [facility] Alkaline phosphatase [Enzymatic activity/volume] in Serum or Plasma [facility] Anion gap in Serum o r Plasma [facility] Bacteria identified in Blood by Culture Blood Culture [facility] Bilirubin, total measurement [facility] BUN/Creatinine ratio [facility] C reactive protein [Mass/volume] in Serum or Plasma [facility] Calcium [Mass/volume ] in Serum or Plasma [facility] Carbon dioxide, tota l [Moles/volume] in Central venous blood [facility] CBC W Auto Different ial panel - Blood [facility] CBC W Auto Different ial panel - Blood [facility] Comprehensive metabo lic 1999 panel - Serum or Plasma [facility] metabo lic 1999 panel - Serum or Plasma [facility] Creatinine [Mass/vol ume] in Serum or Plasma [facility] CT Chest WO contrast [facility] CT Chest WO contrast [facility] CT Chest WO contrast [facility] Erythrocyte sediment ation rate [facility] Exercise tolerance test [facility] Ferritin [Mass/volum e] in Serum or Plasma [facility] Ferritin [Mass/volum e] in Serum or Plasma [facility] Folate [Moles/volume ] in Serum or Plasma [facility] Folate [Moles/volume ] in Serum or Plasma [facility] Glucose [Mass/volume ] in Serum or Plasma [facility] Influenza virus A an d B and SARS-CoV-2 (COVID-19) Ag panel - Upper respiratory specim [facility] Iron and Iron bindin g capacity panel - Serum or Plasma [facility] Iron and Iron bindin g capacity panel - Serum or Plasma [facility] Lactate dehydrogenas e measurement [facility] Lactate dehydrogenas e measurement [facility] Magnesium measurement [facility] Magnesium measurement [facility] Measurement of renal function [facility] Patient Education [facility] Work Phone: Patient referral [facility] Work Phone: Positron emission tomography with computed tomography [facility] Potassium measurement [facility] SARS-CoV-2 & FLU Ant igen (Rapid) SARS-CoV-2 & FLU Antigen (Rapid) [facility] Serum chloride measurement [facility] Serum inorganic phos phate measurement [facility] Sodium measurement [facility] Total protein measurement [facility] Urea nitrogen [Mass/ volume] in Serum or Plasma [facility] Vitamin B12 measurement [facility] Immunizations Immunization Date Immunization Notes Care Provider [facility] 08-29-2019 pneumococcal polysaccharide vaccine, [address] Deshawn Torrez Work Phone: [facility] 02-20-[address] Deshawn Torrez Work Phone: [facility] Payers Date Payer Category Payer Unknown [employer]HAEL [employer] C[employer] PPO OOS [id number] 2019-Present [phone] [address] [place] [address] PPO [id number] 2019 Unknown [id number] 2017 Medicare MEDICARE MEDICAR E A [id number] 2017-Present [phone] [address] [place] [id number] Medicare [id number] 2017 Medicare [id number] 2017 Self-pay [id number] 2016 Private Health Insurance [facility] [id number] Unknown [id number] .462 Unknown [id number] 2.16.840.1.534824.3.579.2 .462 Unknown [id number] 2.16.840.1.965293.3.579.2 .462 Unknown [id number] 2.16.840.1.633873.3.579.2 .462 Unknown [id number] 2.16.840.1.715701.3.579.2 .462 Unknown [id number] 2.16.840.1.438839.3.579.2 .462 Unknown [id number] 2.16.840.1.195019.3.579.2 .462 Unknown [id number] 2.16.840.1.944775.3.579.2 .462 Unknown [id number] 2.16.840.1.318441.3.579.2 .462 Unknown [id number] 2.16.840.1.889593.3.579.2 .462 Unknown [id number] 2.16.840.1.259911.3.579.2 .462 Unknown [id number] 2.16.840.1.951955.3.579.2 .462 Unknown [id number] 2.16.840.1.437449.3.579.2 .462 Unknown [id number] 2.16.840.1.750863.3.579.2 .462 Unknown [id number] 2.16.840.1.711404.3.579.2 .462 Unknown [id number] 2.16.840.1.454926.3.579.2 .462 Unknown [id number] 2.16.840.1.832315.3.579.2 .462 Unknown [id number] 2.16.840.1.220287.3.579.2 .462 Unknown [id number] 2.16.840.1.547536.3.579.2 .462 Unknown [id number] 2.16.840.1.087076.3.579.2 .462 Unknown [id number] 2.16.840.1.233923.3.579.2 .462 Unknown [id number] 2.16.840.1.793854.3.579.2 .462 Unknown [id number] 2.16.840.1.145186.3.579.2 .462 Unknown [id number] 2.840.1.115742.3.579.2 .462 Social History Date Type Detail Facility Start: 04-30-2021 End: 03-29-2024 Tobacco smoking status PRIS Smokes tobacco daily [facility] Start: 11-12-1986 History of tobacco use Cigarette Smo ker [facility] Start: 04-30-2021 Cigarettes smoked current (pack per day) - Reported 1 [facility] Start: 04-30-2021 Tobacco use and exposure Smokeless tobacco non-user [facility] Start: 07-08-2021 Alcohol intake Lifetime non-d tyson (finding) [facility] Start: 04-30-2021 History SDOH Alcohol Frequency 1 [facility] Start: 1950 Sex Assigned At Not on file C [facility] Start: 07-09-2021 End: 08-08-2021 Exposure to SARS-CoV-2 (event) Not sure [facility] Start: 01-22-2022 End: 08-23-2023 Tobacco smoking status PRIS Unknown if ever smoked [facility] Start: 08-09-2018 Rare [facility] Start: 08-09-2018 None [facility] Start: 08-09-2018 Spouse/ Signif icant Other [facility] Start: 08-15-2018 Cigarettes [facility] Start: 1950 Sex Assigned At Female [facility] Start: 09-05-2024 End: 09-17-2024 Sex Female (finding) [facility] Sex Female [facility] Goals Date Patient Goal Desired Activity /State Functional Status Date Assessment Result Facility 11-27-2022 Functional status Activity Abili ty Standby Assist [facility] Work Phone: 11-26-2022 Functional status Ambulates [facility] Work Phone: Mental Status Date Assessment Result Facility 01-23-2025 Cognitive function Voice/Name [facility] Work Phone: 08-23-2023 Cognitive function Level Of Cons ciousness Awake;Alert;Appropriate [facility] Work Phone: 06-21-2023 Cognitive function Awake;Alert;A ppropriate;Follo ws Commands [facility] Work Phone: 11-27-2022 Cognitive function Voice/Name [facility] Work Phone: 11-27-2022 Cognitive function Appropriate;Cooperativ e [facility] Work Phone: 11-25-2022 Cognitive function Voice/Name [facility] Work Phone: 04-23-2017 Cognitive function Mood Description Appro priate [facility] Work Phone: Clinical Notes 04-30-2021 to 04-05-2025 Note Date & Type Note Facility 04-05-2025 Progress note [facility] 01-31-2025 Radiology Diagnostic study note [facility] Imaging Services [address] [place] [address] Chest without Contrast MR#: [id number] Acct: [id number] Name: ASHLEE MILLER Rep #: [id number] : [id number] F 74 From: Sim Lagos MD PCP: LARRY Garcia Status: REG CLI Study:Chest without Contrast Date of Exam: 01/30/25 Exam# [id number] Ordering Dr: Kaylie Ames PROCEDURE: CHEST WITHOUT CONTRAST 01/30/2025 REASON FOR EXAM: PERSISTENT 2.2 X 2.3CM DENSITY IN LLL History of breast carcinoma with bilateral mastectomy. Smoker. TECHNIQUE: Chest CT without contrast. Coronal and Sagittal reconstruction series were provided. One or more dose reduction techniques were used (e.g., Automated exposure control, adjustment of the mA and/or kV according to patient size, use of iterative reconstruction technique RADIATION DOSE SUMMARY: CTDlvol: 6.34 mGy DLP: 263.12 mGycm COMPARISON: Prior study dated October 28, 2024. FINDINGS: Hardware: None Lymph nodes: No mediastinal lymph nodes are seen. Heart and Vasculature: The heart is nonenlarged. Atherosclerotic calcificationsof the thoracic aorta. Thoracic aorta and pulmonary arteries have normal contours; noncontrast technique limits evaluation. Coronary Artery Calcifications: Present Lungs and Airways: Advanced emphysematous changes are present. Persistent heterogeneous infiltrate in the left lower lobe with areas of cystic changes. Stable 2.5 cm bulla in the anterior superior aspect ofthe heterogeneous infiltrate. Persistent 2.2 cm 2.3 cm rounded soft tissue density in the medial superior segment of the left lower lobe. Pleura: No pleural effusion. Upper Abdomen: Unremarkable Bones: Degenerative changes of the thoracic spine. Loss of height of a mid dorsal vertebrae. CT/Chest without Contrast IMPRESSION: Coronary artery calcification (CAC) is is present Stable examination. 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: Signed [facility] 01-11-2025 Progress note [facility] 01-11-2025 Progress note Note Date/Time January 11, 2025 4:23pm [facility] [address] [place] [id number] OFFICE VISIT Date of Service: 01/11/25 1556 MR#: [id number] Acct: [id number] Name: ASHLEE MILLER Rep #: [id number] : 1950 From: Donald Park MD Age/Sex: 74/F Location: [facility] Status: Signed HPI Subjective Date of Service 01/11/25 Chief Complaint F/u for R breast cancer. History of Present Illness 74 y.o.woman presented with abnormal mammogram, she had stereotactic breast biopsy on November 26, 2016 which showed invasive ductal carcinoma with atypical features, nuclear grade 2, ER/KY negative, HER-2 was 1-2+ by IHC, FISH negative. 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 Pathology showed Invasive ductal carcinoma, tumor size 8mm, sentinel node 1/1 negative, pT1b, pN0 M0, Stage IA disease. Received adjuvant chemotherapy with Taxotere/Cytoxan from 02/12/17 to 04/23/2017. Developed post menopausal bleeding 02/26/17 and subsequently underwent transvaginal US 03/13/[address] Treadwell which demonstrated possible 3mm endometrial polyp, fluid filled endometrial cavity, uterine fibroid and 2.7 complex left ovarian cyst. Endometrial curettage on 06/12/2017 showed atrophic endometrium. She remains on observation. She was found to have Iron deficiency anemia with Positive stooloccult blood, comes in for follow up. Feels well, now [place] [facility] Medical History Pleurisy Collapsed lung VATS bullectomy/doxy peurodesis (left) Port placement Osteoporosis COPD (chronic obstructive pulmonary disease) Cataract Visual disturbances, right eye Surgical History History of exploratory laparotomy History of bilateral mastectomy History of breast biopsy History of cataract extraction Family History Mother Hypoglycemia Neuropathy Thyroid disorder Hypertension Heart disease Diverticulitis Father COPD (chronic obstructive pulmonary disease) Social History Smoking Status: Current every day smoker tobacco type: cigarettes alcohol intake: never substance use type: does not use Intake Vital Signs 12/28/24 11:33 01/11/25 15:57 Height 5 ft 3 in 5 ft 3 in Weight: 31.893 kg BMI 12.4 BP 114/64 Blood Pressure Location Lt brachial Position Sitting Respiration 18 Pulse 115 H Pulse Source Monitor Temp 98.7 F Temperature Source Temporal Artery Pulse Oximetry (%) 99 Oxygen Delivery Method nasal canula Oxygen Flow Rate (L/min) 3 Intake Accompanied by: Is patient in pain?: No Allergies No Known Allergies Allergy (Verified 01/11/25 15:59) Medications ?Medication ?Instructions ?Recorded ?Confirmed ?Type methocarbamol 500 mg tablet 500 mg PO 4X/DAY PRN PRN M uscle 08/23/23 01/11/25 Rx pain/spasm #40 tabs guaifenesin 1,200 mg tablet, 1,200 mg PO Q12H #60 tabs 10/07/23 01/11/25 Rx extended release 12 hr lorazepam 0.5 mg tablet 0.5 mg PO Q6H PRN dyspnea 01/11/25 History oxybutynin chloride 5 mg 5 mg PO DAILY 10/07/2301/11 History tablet,extended release 24 hr budesonide 160 mcg-glycopyr 9 2 inh inhalation BID #10 .7 grams 12/25/23 01/11/25 Rx mcg-formot 4.8 mcg/actuation HFA inhaler (Breztri Aerosphere) azithromycin 250 mg tablet 250 mg PO QMWF #12 tabs 01/11/25 Rx albuterol sulfate 2.5 mg/3 mL 2.5 mg (3 mL) inhalation Q4H PRN 02/26/24 01/11/25 Rx (0.083 %) solution for nebulization Sob &/Or Wheezing #180 mL roflumilast 250 mcg tablet 250 mcg PO QDAY #30 tabs 01/11/25 Rx (Daliresp) voriconazole 50 mg tablet 150 mg PO BID 08/10/2401/11 History albuterol sulfate 90 mcg/actuation 2 puff inhalation Q 4H PRN 11/01/24 01/11/25 Rx aerosol inhaler (Ventolin HFA) shortness of breath or wheezing #18 grams prednisone 10 mg tablet 10 mg PO QDAY #90 tabs 11/0101/11/25 Rx amoxicillin 875 mg-potassium 1 tab PO Q12H #28 tabs 01/11/25 Rx clavulanate 125 mg tablet Have you fallen in the past year?: Yes Central Venous Access Central Venous Access: No Microbiology 01/02/25 09:55 Stool Stool Occult Blood (LYNDSEY) - Final Occult Blood Positive Laboratory Tests 02/04/19 01/04/24 12/28/24 10:05 10:25 10:43 WBC 7.4 10.2 RBC 4.70 Hgb 14.2 12.0 Hct 43.3 38.9 32.1 L Plt Count 284 306 Sodium 138 Potassium 3.9 Chloride 105 Carbon Dioxide 28.0 BUN 18 Creatinine 0.70 Glucose 87 Calcium 9.2 Total Bilirubin 0.40 AST 19 Iron ALT 21 Alkaline Phosphatase 84 Iron Saturation Ferritin 65 Total Protein 7.2 Albumin 3.8 Globulin 3.4 Albumin/Globulin Ratio 1.1 12/28/24 12/28/24 12/28/24 10:43 10:43 10:43 WBC 11.5 H RBC Hgb 9.6 L 9.6 L Hct 32.1 L Plt Count 486 H 486 H Sodium Potassium Chloride Carbon Dioxide BUN Creatinine Glucose Calcium Total Bilirubin AST Iron 21 L ALT Alkaline Phosphatase Iron Saturation 7.0 L Ferritin Total Protein Albumin Globulin Albumin/Globulin Ratio 12/28/24 10:43 WBC 11.5 H RBC Hgb Hct Plt Count Sodium Potassium Chloride Carbon Dioxide BUN Creatinine Glucose Calcium Total Bilirubin AST Iron ALT Alkaline Phosphatase Iron Saturation Ferritin Total Protein Albumin Globulin Albumin/Globulin Ratio Exam Physical Exam Const alert, oriented x3 and no apparent distress Coding Level of Care Code Off vis,est,level 3 Exam Problem Focused Diagnoses Iron deficiency anemia due to chronic blood loss D50.0 Iron deficiency anemia type: chronic blood loss Assessment and Plan Assessment and Plan (1) Iron deficiency anemia: Status: Acute Qualifiers: Iron deficiency anemia type: chronic blood loss Qualified Code(s): D50.0 - Iron deficiency anemia secondary to blood loss (chronic) Plan: To obtain Pre-authorization for IV Iron and then administer. To proceed with GI consult for Endoscopy. 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 January 24, 2025 2:43pm Respiratory failure with hypoxia chronic January 24, 2025 2:43pm 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 January 24, 2025 2:43pm Lung nodule acute February 17, 2025 1:09pm 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 February 17, 2025 1:09pm Respiratory failure with hypoxia chronic February 17 1:09pm 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 February 17, 2025 1:09pm Iron deficiency anemia chronic Se ptember 2024 11:03am Floaters chronic March 29, 2 025 11:35am 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 March 29 11:35am Invasive ductal carcinoma of right breast, stage 1 resolved March 11:35am Breast cancer, right breast deleted March 29, 2025 11:35am Chemotherapy management, encounter for deleted March 29 11:35am Educational circumstance deleted March 29, 2025 11:35am Rectal bleeding deleted March 292024 11:35am Skin lesion deleted March 29, 2025 11:35am URI (upper respiratory infection) deleted March 29 11:35am Vaginal bleeding, abnormal deleted March 29, 2025 11:35am Low phosphate levels acute Octo leann 2024 10:14am Iron deficiency anemia chronic Oc tober 2024 10:14am [facility] Work Phone: 1(728) 677-654407-09-2025 Progress [facility] [place] [address] OFFICE VISIT Date of Service: 12/28/24 1132 MR#: [id number] Acct: [id number] Name: ASHLEE MILLER Rep #: [id number] : 1950 From: Donald Park MD Age/Sex: 74/F Location[place] [facility] [place] Status: Signed HPI Subjective Date of Service 12/28/24 Chief Complaint F/u for R breast cancer. History of Present Illness 74 y.o.woman presented with abnormal mammogram, she had stereotactic breast biopsy on November 26, 2016 which showed invasive ductal carcinoma with atypical features, nuclear grade 2, ER/KY negative, HER-2 was 1-2+ by IHC, FISH negative. 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 Pathology showed Invasive ductal carcinoma, tumor size 8mm, sentinel node 1/1 negative, pT1b, pN0M0, Stage IA disease. Received adjuvant chemotherapy with Taxotere/Cytoxan from 02/12/17 to 04/23/2017. Developed post menopausal bleeding 02/26/17 and subsequently underwent transvaginal US 03/13/[address] Treadwell which demonstrated possible 3mm endometrial polyp, fluid filled endometrial cavity, uterine fibroid and 2.7 complex left ovarian cyst. Endometrial curettage on 06/12/2017 showed atrophic endometrium. She remains on observation, comes in for follow up. Feels well, now [place] [facility] Medical History Pleurisy Collapsed lung VATS bullectomy/doxy peurodesis (left) Port placement Osteoporosis COPD (chronic obstructive pulmonary disease) Cataract Visual disturbances, right eye Surgical History History of exploratory laparotomy History of bilateral mastectomy History of breast biopsy History of cataract extraction Family History Mother Hypoglycemia Neuropathy Thyroid disorder Hypertension Heart disease Diverticulitis Father COPD (chronic obstructive pulmonary disease) Social History Smoking Status: Current every day smoker tobacco type: cigarettes alcohol intake: never substance use type: does not use Intake Vital Signs 08/10/24 09:00 12/09/24 06:22 12/28/24 11:33 Height 5 ft 3 in 5 ft 3 in 5 ft 3 in Weight: 31.099 kg BMI 12.1 BP 110/60 Blood Pressure Location Lt brachial Position Sitting Respiration 14 Pulse 99 Pulse Source Monitor Pulse Oximetry (%) 98 Oxygen Delivery Method nasal canula Oxygen Flow Rate (L/min) 2 Intake Is patient in pain?: No Allergies No Known Allergies Allergy (Verified 12/28/24 11:39) Medications ?Medication ?Instructions ?Recorded ?Confirmed ?Type methocarbamol 500 mg tablet 500 mg PO 4X/DAY PRN PRN M uscle 08/23/23 12/28/24 Rx pain/spasm #40 tabs guaifenesin 1,200 mg tablet, 1,200 mg PO Q12H #60 tabs 10/07/23 12/28/24 Rx extended release 12 hr lorazepam 0.5 mg tablet 0.5 mg PO Q6H PRN dyspnea 12/28/24 History oxybutynin chloride 5 mg 5 mg PO DAILY 10/07/2312/28 History tablet,extended release 24 hr budesonide 160 mcg-glycopyr 9 2 inh inhalation BID #10 .7 grams 12/25/23 12/28/24 Rx mcg-formot 4.8 mcg/actuation HFA inhaler (Breztri Aerosphere) azithromycin 250 mg tablet 250 mg PO QMWF #12 tabs 12/28/24 Rx albuterol sulfate 2.5 mg/3 mL 2.5 mg (3 mL) inhalation Q4H PRN 02/26/24 12/28/24 Rx (0.083 %) solution for nebulization Sob &/Or Wheezing #180 mL roflumilast 250 mcg tablet 250 mcg PO QDAY #30 tabs 12/28/24 Rx (Daliresp) voriconazole 50 mg tablet 150 mg PO BID 08/10/2412/28 History albuterol sulfate 90 mcg/actuation 2 puff inhalation Q 4H PRN 11/01/24 12/28/24 Rx aerosol inhaler (Ventolin HFA) shortness of breath or wheezing #18 grams prednisone 10 mg tablet 10 mg PO QDAY #90 tabs 11/0112/28/24 Rx amoxicillin 875 mg-potassium 1 tab PO Q12H #28 tabs 12/28/24 Rx clavulanate 125 mg tablet Have you fallen in the past year?: Yes Central Venous Access Central Venous Access: No Exam Physical Exam Narrative On home O2 by [place] Const alert, oriented x3 and no apparent distress General Appearance: cooperative and comfortable HEENT normocephalic, external ears normal and external nose normal Eyes no scleral icterus Neck supple Lymph Lymphatic: no lymphadenopathy noted Chest inspection of chest normal Chest Narrative: Bilateral mastectomy scars, no nodules. Resp normal respiratory effort, no use of accessory muscles and clear to auscultationbilaterally Cardio regular rate, regular rhythm, S1 normal heart sound, S2 normal heart sound and no murmurs GI normal to inspection, nondistended, normoactive bowel sounds no CVA tenderness Back/Spine thoracic and lumbar spine normal to inspection Extremity normal to inspection and no clubbing, cyanosis or edema Skin no rashes or lesions noted Neuro oriented x3, CN's II-XII intact bilaterally, moves all extremities and no focal motor deficits Psych mental status grossly normal Coding Level of Care Code Off vis,est,level 4 Exam Problem Focused Diagnoses History of breast cancer Z85.3 Anemia, unspecified type D64.9 Anemia type: unspecified type Assessment and Plan Assessment and Plan (1) History of breast cancer: Status: Chronic Comment: Right breast cancer, stage IA(pT1b pN0 M0), triple negative, status post right MRM with sentinel node biopsy and left prophylactic mastectomy. Received adjuvant Cytoxan and Taxotere x 4 cycles from 02/12/2017 to 04/23/2017. Comes for follow up. No evidence of disease clinically. Labs reviewed, WNL. Plan: To continue observation. (2) Anemia: Status: Acute Qualifiers: Anemia type: unspecified type Qualified Code(s): D64.9 - Anemia, unspecified Plan: To check Iron profile. To obtain stool for occult. 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 December 09, 2024 12:40pm Floaters chronic December 28, 2024 10:40am 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 December 28, 2024 1 0:40am Invasive ductal carcinoma of right breast, stage 1 resolved December 28, 2024 10:40am Breast cancer, right breast deleted December 28, 2024 10:40am Chemotherapy management, encounter for deleted December 28, 2024 1 0:40am Educational circumstance deleted December 28, 2024 10:40am Rectal bleeding deleted December 28, 2024 10:40am Skin lesion deleted December 28 10:40am URI (upper respiratory infection) deleted December 28, 2024 1 0:40am Vaginal bleeding, abnormal deleted December 28, 2024 10:40am Anemia acute December 28, 2024 10:53am History of breast cancer chronic December 28, 2024 10:53am [facility] Work Phone: [phone]) [phone] Evaluation note* Diagnosis Onset Date Resolution Status Admit Date Lung nodule acute December 09 12:40pm 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 December 09, 2024 12:40pm Respiratory failure with hypoxia chr onic December 09, 2024 12:40pm 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 December 09, 2024 12:40pm Anemia acute December 28, 2024 10:53am History of breast cancer chronic December 28, 2024 10:53am Floaters chronic January 02 11:05am 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 January 02, 2025 11:05am Invasive ductal carcinoma of right breast, stage 1 resolved January 02, 2025 11:05am Breast cancer, right breast deleted January 02, 2025 11:05am Chemotherapy management, encounter for deleted January 02, 2025 11:05am Educational circumstance deleted January 02, 2025 11:05am Rectal bleeding deleted December 11:05am Skin lesion deleted January 02 11:05am URI (upper respiratory infection) deleted January 02, 2025 11:05am Vaginal bleeding, abnormal deleted January 02, 2025 11:05am Iron deficiency anemia acute Ju ly 2024 3:50pm [facility] [employer] Work Phone: 1([phone] 341-937106-20-2025 Evaluation note* Diagnosis Onset Date Resolution Status Admit Date Lung nodule acute December 09 12:40pm 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 December 09, 2024 12:40pm Respiratory failure with hypoxia chronic December 09, 2024 12:40pm 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 December 09 025 12:40pm Anemia acute December 28, 2024 10:53am History of breast cancer chronic December 28, 2024 10:53am Iron deficiency anemia acute Ju ly 2024 3:50pm Floaters chronic January 23 12:30pm 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 January 23, 2025 12:30pm Invasive ductal carcinoma of right breast, stage 1 resolved January 12:30pm Breast cancer, right breast deleted January 23, 2025 12:30pm Chemotherapy management, encounter for deleted January 23, 2025 12:30pm Educational circumstance deleted January 23, 2025 12:30pm Rectal bleeding deleted January 12:30pm Skin lesion deleted January 23, 2 025 12:30pm URI (upper respiratory infection) deleted January 23, 2025 12:30pm Vaginal bleeding, abnormal deleted January 23, 2025 12:30pm Lung nodule acute January 24, 2 025 2:43pm 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 January 24, 2025 2:43pm Respiratory failure with hypoxia chronic January 24, 2025 2:43pm 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 January 24, 2025 2:43pm [facility] Work Phone: 1(127) 176-760006-20-2025 Evaluation note* Diagnosis Onset Date Resolution Status Admit Date Lung nodule acute December 09 12:40pm 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 December 09, 2024 12:40pm Respiratory failure with hypoxia chronic December 09, 2024 12:40pm 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 December 09, 025 12:40pm Anemia acute December 28, 2024 10:53am History of breast cancer chronic December 28, 2024 10:53am Iron deficiency anemia acute 2024 3:50pm Floaters chronic January 23 12:30pm 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 January 23, 2025 12:30pm Invasive ductal carcinoma of right breast, stage 1 resolved January 12:30pm Breast cancer, right breast deleted January 23, 2025 12:30pm Chemotherapy management, encounter for deleted January 23, 2025 12:30pm Educational circumstance deleted January 23, 2025 12:30pm Rectal bleeding deleted January 12:30pm Skin lesion deleted January 23 025 12:30pm URI (upper respiratory infection) deleted January 23, 2025 12:30pm Vaginal bleeding, abnormal deleted January 23, 2025 12:30pm Lung nodule acute January 24, 2 025 2:43pm 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 January 24, 2025 2:43pm Respiratory failure with hypoxia chronic January 24, 2025 2:43pm 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 January 24, 2025 2:43pm Lung nodule acute February 17, 2025 1:09pm 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 February 17, 2025 1:09pm Respiratory failure with hypoxia chronic February 17 1:09pm 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 Coronal and Sagittal reconstruction series were provided. One or more dose reduction techniques were used (e.g., Automated exposure control, adjustment of the mA and/or kV according to patient size, use of iterative reconstruction technique RADIATION DOSE SUMMARY: CTDlvol: 6.15 mGy DLP: 244.17 mGycm COMPARISON: Comparison is made with prior study dated July 01, 2024. FINDINGS: Hardware: None Lymph nodes: No significant mediastinal lymph nodes are seen. Heart and Vasculature: Coronary artery calcifications are noted. Atheroscleroticcalcifications of the thoracic aorta. Thoracic aorta and pulmonary arteries have normal contours; noncontrast technique limits evaluation. Coronary Artery Calcifications: Present Lungs and Airways: Advanced emphysematous changes are present. Persistent infiltrate in the left lower lobe. At this time, there is evidence of multiple cystic spaces with a tiny air-fluid levels suggestive of possible infected bulla. There is also evidence of underlying bronchiectasis. Residual infiltrate in the inferior aspect of the posterior segment of the left lower lobe. 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 Pleura: No significant pleural effusion is seen. Upper Abdomen: Unremarkable Bones: Degenerative changes of the thoracic spine. CT/Chest without Contrast IMPRESSION: Advanced emphysematous changes. The previously seen consolidation in the left lower lobe has become less coalescent with multiple small cystic spaces containing air-fluid level suggestive of possible infected bulla. 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 July 26 7:30am Invasive ductal carcinoma of right breast, stage 1 resolved July 262024 7:30am Breast cancer, right breast deleted July 26, 2024 7:30am Chemotherapy management, encounter for deleted July 26 7:30am Educational circumstance deleted July 26, 2024 7:30am Rectal bleeding deleted July 26, 2024 7:30am Skin lesion deleted July 26, 2024 7:30am URI (upper respiratory infection) deleted July 26 7:30am Vaginal bleeding, abnormal deleted July 26, 2024 7:30am Lung nodule acute July 1:12pm 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 Bravo [facility] November 27, 2022 10:03am Note Date/Time November 27, 2022 10:00 am [facility] Medical Records Department [address] [place] [address] Discharge Summary 11/27/22 0957 MR#: [id number] Acct: [id number] Name: ASHLEE MILLER Rep #:[id number] : 1950 72 From: Singh henderson MD PCP: Dr. Jaida Kwong MD Status:ADM IN Location: [place] [address] Providers Date of Admission: 11/25/22 Primary Care Physician: Dr. Jaida Kwong MD Reason For Visit: PNEUMONIA Diagnosis Discharge Diagnosis (1) Pneumonia: Status: Acute Code(s): J18.9 - Pneumonia, unspecified organism (2) Tobacco abuse: Status: Acute Code(s): Z72.0 - Tobacco use (3) SIRS (systemic inflammatory response syndrome): Status: Acute Code(s): R65.10 - Systemic inflammatory response syndrome (SIRS) of non-infectious originwithout acute organ dysfunction (4) Severe protein-energy malnutrition: Status: Chronic Code(s): E43 - Unspecified severe protein-calorie malnutrition (5) Chest pain: Status: Acute Code(s): R07.9 - Chest pain, unspecified Medications at Discharge Home Medications ipratropium 0.5 mg-albuterol 3 mg (2.5 mg base)/3 mL nebulization soln 3 ml inhalation Q4H PRN PRN SOB &/OR WHEEZING #180 mL 08/28/20 albuterol sulfate 90 mcg/actuation aerosol inhaler (Ventolin HFA) 2 puff inhalation Q4H PRN shortness of breath or wheezing #18 grams 06/03/22 budesonide 160 mcg-glycopyr 9 mcg-formot 4.8 mcg/actuation HFA inhaler (Breztri Aerosphere) 2 inh inhalation BID #10.7 grams 06/03/22 azithromycin 500 mg tablet 500 mg PO DAILY 2 days #2 tabs 11/27/22 cefdinir 300 mg capsule 300 mg PO BID 4 days #8 caps 11/27/22 Hospital Course Operations None Procedures None Summary of Care Provided Minutes Spent on Discharge: 32 Hospital Course: Per HPI: ASHLEE MILLER, is a 72 F with a significant history of tobacco abuse; COPD on 5 L nasal cannula oxygen as needed; pneumonia and pleurisy who presents to emergency department with sudden onset excruciating right-sided sharp chest pain that radiated to her right back reminiscent with her previous history of pleurisy.? Her pain improves with lying still and the pain is aggravated by moving.? Associated with her symptoms is nausea and dry heaving.? She denies anyfrank vomiting. Further, she reports of shortness of breath.? She denies wheezing.? She reports chronic productive cough of clear to yellow sputum which is unchanged.? She reports chills.? She reports a poor appetite. She reports needing oxygen all day.? Hospital Course: 1. Bilateral bacterial pneumonia with pleurisy/COPD not in exacerbation/tobaccouse?72-year-old female presents to the hospital with shortness of breath and increased oxygen requirements. She was also having some right-sided chest pain consistent with pleurisy based on her pneumonia. She was started on antibioticsand her leukocytosis is improving. She feels much better today and she is maintaining her oxygen saturations with ambulation on 2 L nasal cannula, she already has 5 L nasal cannula at home. I discussed with her the plan for possible discharge today she expressed understanding of the risk benefits going homeand would like to go home today. I would like her to follow-up with her PCP in 3 to 5 days and to follow-up with a knitting machine fixer as previously scheduled. 2. Severe protein calorie malnutrition is going to be a chronic problem this can complicate her care. Physical Exam Narrative General: Alert, Oriented x3, Cooperative, No apparent distress HEENT: Atraumatic, PERRLA, EOMI, Normocephalic, cachectic Oral: Moist Mucosa Neck: Supple, No JVD Lungs: Diminished, Normal air movement, No rhonchi, No wheeze, No rales, slight crackles Cardiovascular: Regular rate, Regular Rhythm, Normal S1, Normal S2, No murmurs Abdomen: Soft, Non Tender, Non-Distended, No Hepato-splenomegaly Extremities: No edema, Capillary Refill Less than 3 Seconds Skin: No rashes, No breakdown Musculoskeletal: No Tenderness to Palpation of Joints or Extremities Neurological: Cranial nerves II-XII grossly intact, Motor Exam 5/5 strength throughout, Sensory exam intact to light touch and pain Psych/Mental Status: Normal Affect, Appropriate Weight / BMI Weight Weight: 77 lb 5 oz Body Mass Index (BMI) 13.2 ABG / Lab / Microbiology Data Result Diagrams: 11/27/22 06:28 11/26/22 06:10 Laboratory: Laboratory Results - last 24 hr 11/27/22 06:28: WBC 13.3 H, RBC 3.85 L, Hgb 11.3 L, Hct 35.8 L, MCV 93.0, MCH 29.4, MCHC 31.6 L, RDW Std Deviation 45.8 H, RDW Coeff of Jin 13.3, Plt Count 222, MPV 9.4, Immature Gran % (Auto) 1.100 H, Neut % (Auto) 83.7 H, Lymph % (Auto) 10.9 L, [place] % (Auto) 3.9, Eos % (Auto) 0.2, Baso % (Auto) 0.2, Absolute Neuts (auto) 11.1 H, Absolute Lymphs (auto) 1.45, Nucleated RBC % 0 Microbiology: Microbiology 11/25/22 21:31 Urine, Clean Catch Legionella Antigen - Final 11/25/22 21:31 Urine, Clean Catch Streptococcus pneumoniae Antigen (M - Final 11/25/22 18:45 Nasal Secretion SARS-CoV-2 & FLU Antigen (Rapid) - Final D/C Instructions Discharge Diet: No restrictions Call your doctor if you observe: Fever of 101 or Higher, Shortness of breath, Dizziness, Fainting spells, Swelling in the ankles, Chest pain and Increased palpitations (irregular heartbeat) Meaningful Use Info Meaningful Use Diagnoses (Choose all that apply): None applicable Discharge Plan Admission Admit Date/Time: 11/25/22 20:25 Attending Provider: Singh Bravo Primary Care Provider: Jaida Kwong Consulting Providers: Donald Guzman Discharge Orders/Prescriptions Prescriptions: New azithromycin 500 mg tablet 500 mg PO DAILY 2 Days Qty: 2 0RF Rx Instructions: start on day 2 of therapy cefdinir 300 mg capsule 300 mg PO BID 4 Days Qty: 8 0RF Continued ipratropium-albuterol 0.5 mg-3 mg(2.5 mg base)/3 mL solution for nebulization 3 ml INHALATION Q4H PRN PRN (Reason: SOB &/OR WHEEZING) Qty: 180 6RF albuterol sulfate [Ventolin HFA] 90 mcg/actuation HFA aerosol inhaler 2 puff INHALATION Q4H PRN (Reason: shortness of breath or wheezing) Qty: 18 5RF Breztri Aerosphere 160-9-4.8 mcg/actuation HFA aerosol inhaler 2 inh inhalation BID Qty: 10.7 11RF Referrals / Follow Up: Jaida Kwong MD [Primary Care Provider] - 12/08/22 11:00 am Deshawn Torrez MD [Non-Staff] - Disposition Disposition (needs filled in before D/C Order can be placed): Home, Self Care Charges/Coding Visit Charges Inpatient E&M: 57763 Disch Hosp >30min 11/27/22 1003 <Electronically signed by Singh Bravo MD> Cosigner Signature (if applicable): CC: Dr. Jaida Kwong MD; Dr. Singh Bravo MD~ Signed [facility] Work Phone: 1(877) 272-120606-08-[address] Bravo [facility] November 27, 2022 9:37am Note Date/Time November 27, 2022 9:27a m [facility] Medical Records Department [address] [place] [address] Instructions for Home/Discharge Instructions 11/27/2225 MR#: [id number] Acct: [id number] Name: ASHLEE MILLER Rep #:[id number] : 1950 72 From: Singh henderson MD PCP: Dr. Jaida Kwong MD Status:ADM IN Discharge Instructions Diet Discharge Diet: No restrictions Activity Discharge Activity: Return to Normal Activity Dressing / Incision Call your doctor if you observe: Fever of 101 or Higher, Shortness of breath, Dizziness, Fainting spells, Swelling in the ankles, Chest pain and Increased palpitations (irregular heartbeat) Follow Up Care Test Results: Test results from this visit will be discussed in further detail at your follow- up appointment, if applicable. Discharge Plan Admission Admit Date/Time: 11/25/22 20:25 Attending Provider: Singh Bravo Primary Care Provider: Jaida Kwong Consulting Providers: Donald Guzman Discharge Orders/Prescriptions Prescriptions: New azithromycin 500 mg tablet 500 mg PO DAILY 2 Days Qty: 2 0RF Rx Instructions: start on day 2 of therapy cefdinir 300 mg capsule 300 mg PO BID 4 Days Qty: 8 0RF Continued ipratropium-albuterol 0.5 mg-3 mg(2.5 mg base)/3 mL solution for nebulization 3 ml INHALATION Q4H PRN PRN (Reason: SOB &/OR WHEEZING) Qty: 180 6RF albuterol sulfate [Ventolin HFA] 90 mcg/actuation HFA aerosol inhaler 2 puff INHALATION Q4H PRN (Reason: shortness of breath or wheezing) Qty: 18 5RF Breztri Aerosphere 160-9-4.8 mcg/actuation HFA aerosol inhaler 2 inh inhalation BID Qty: 10.7 11RF Referrals / Follow Up: Jaida Kwong MD [Primary Care Provider] - Deshawn Torrez MD [Non-Staff] - Disposition Disposition (needs filled in before D/C Order can be placed): Home, Self Care 11/27/22 0937<Electronically signed by Singh Bravo MD>Singh Bravo MD CC: Dr. Jaida Kwong MD; Dr. Donald Guzman MD ~ Signed [facility] Work Phone: 1(316) 246-991406-08-[address] Bravo [facility] November 27, 2022 3:22pm Note Date/Time November 27, 2022 8:09a [facility] Medical Records Department [address] [place] [address] Progress Note - Hospitalist 11/27/22 08 MR#: [id number] Acct: [id number] Name: ASHLEE MILLER Rep #:[id number] : 1950 72 From: MARLEY KNOTT PCP: Dr. Jaida Kwong MD Status:ADM IN Location: [address] Reason for Visit Reason for Visit: Diagnoses Unspecified severe protein-calorie malnutrition (11/25/22) Nicotine dependence, cigarettes, uncomplicated (11/25/22) Pneumonia, unspecified organism (11/25/22) Chest pain, unspecified (11/25/22) Systemic inflammatory response syndrome (SIRS) of non-infectious origin without acute organ dysfunction (11/25/22) Tobacco use (11/25/22) Subjective Subjective Patient sitting up in bed, smiling and talkative. States doing much better, coughing up small amounts of clear phlegm this morning because she's been doingthose breathing exercises,patient referring to I.S. and PEP. She states chestpain at right apex much less than when she came in. Patient restates her commitment to quitting smoking upon returning home, says it's been 3 days now and I think I can do it, I know I need to do it. Patient provided emotional support and encouragement. Patient currently using oxygen at 2lpm via NC with extension tubing; informed that she will need to complete an ambulatory pulse oximetry measure today to guide discharge planing. Objective Data Objective Data Vital Signs: Vital Signs Temp Pulse Resp BP Pulse Ox O2 Del Method O2 Flow Rate 98.4 F 87 22 H 119/60 98 Nasal Cannula 2 11/27/22 04:17 11/27/22 07:10 11/27/22 07:10 11/27/22 04:17 11/27/22 07:10 11/27/22 07:10 11/27/22 07:10 FiO2 3 11/26/22 21:08 Oxygen Flow Rate (L/min) 2 Oxygen Delivery Method Nasal Cannula Weight: 35.068 kg Body Mass Index (BMI) 13.2 Intake & Output: Intake and Output for Last 24 Hours 11/25/22 11/26/22 11/27/22 23:59 23:59 23:59 Intake Total 1415 / 1815 1355 / 1655 500 / 500 Output Total 550 / 550 Balance 1415 / 1815 805 / 1105 500 / 500 Lab / Micro Data Result Diagrams: 11/27/22 06:28 11/26/22 06:10 Labs: Laboratory Results - last 24 hr 11/27/22 06:28: WBC 13.3 H, RBC 3.85 L, Hgb 11.3 L, Hct 35.8 L, MCV 93.0, MCH 29.4, MCHC 31.6 L, RDW Std Deviation 45.8 H, RDW Coeff of Jin 13.3, Plt Count 222, MPV 9.4, Immature Gran % (Auto) 1.100 H, Neut % (Auto) 83.7 H, Lymph % (Auto) 10.9 L, [place] % (Auto) 3.9, Eos % (Auto) 0.2, Baso % (Auto) 0.2, Absolute Neuts (auto) 11.1 H, Absolute Lymphs (auto) 1.45, Nucleated RBC % 0 Micro: Microbiology 11/25/22 21:31 Urine, Clean Catch Legionella Antigen - Final 11/25/22 21:31 Urine, Clean Catch Streptococcus pneumoniae Antigen (M - Final 11/25/22 18:45 Nasal Secretion SARS-CoV-2 & FLU Antigen (Rapid) - Final Physical Exam Const Constitutional Narrative: Alert, oriented x3, no apparent distress, cachectic body habitus, pleasant and cooperative. HEENT Head and Scalp: normocephalic Eyes PERRL and EOMs intact bilaterally Neck supple and no JVD Chest Chest Narrative: Noted bilateral radical mastectomy without augmentation Resp Resp Narrative: Mild sternal and intercostal retractions, able to speak in complete sentences with use of shoulder accessory muscles, equal excursion. Diminished lung soundswith minimal air movement to right upper lobe, clear right middle lobe, fine rales right lower lobe, left lung clear throughout. Cardio regular rate, regular rhythm, S1 normal heart sound, S2 normal heart sound, no murmurs, no rub and no gallops GI GI Narrative: Abdomen flat, normal to inspection, nondistended, normal active bowel sounds; soft to palpation, nontender, no hepatosplenomegaly. no CVA tenderness Extremity normal to inspection and full ROM Neuro CN's II-XII intact bilaterally, no focal motor deficits and no sensory deficits noted Motor Exam: strength 5/5 throughout Psych affect normal Assessment & Plan Assessment/Plan (1) Pneumonia: (2) Tobacco abuse: (3) SIRS (systemic inflammatory response syndrome): (4) Severe protein-energy malnutrition: (5) Chest pain: PLAN: Plan 1. Chest pain secondary to pneumonia - CXR showing diffuse infiltrate in right upper lobe and infiltrate vs atelectasis in left base; leukocytosis and left shift present on CBC; troponin x2 negative at 5; findings correlate with pneumonia; blood cultures x2 pending; BPs trending 101-115/53-59 with MAPs consistently greater than 65mmHg this admission - history of COPD stage 4 on GOLD scale; CXR demonstrated hyperinflated lungs and COPD sequelae but patient is not in an exacerbation state of the disease; noadditional steroids necessary at this time; continuing home albuterol inhalationand oxygen supply therapies - patient continues to have sternal and intercostal retractions without any noted distress; breathing pattern stated as normal per patient -11/27: leukocytosis improving, transition IV antibiotic therapy to PO to facilitate discharge home 2. 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 -11/27: patient continues to feel that this is the time to quit smoking. 3. Malnutrition - cachectic body habitus; patient denies appetite changes; reports food poisoning 2weeks ago with profuse vomiting for 24hours, but no other dietary changes - educated and encouraged high protein and higher calorie food stuffs; recommended liquid nutritional supplements as well -11/27: patient states that she plans on trying to keep nutritional supplements inher home DVT: Lovenox 11/27/22 1247 <Electronically signed by MARLEY KNOTT > Cosigner Signature (if applicable): 11/27/22 1522 <Electronically signed by Singh Bravo MD> CC: ~ Signed [facility] Work Phone: 1(660) 353-220006-07-2023 History and physical note Author Dr. Guzman [facility] November 26, 2022 7:46pm Note Date/Time November 25, 2022 8:17p m [facility] Medical Records Department [address] [place] [address] H&P Exam - Hospitalist 11/25/222016 MR#: [id number] Acct: [id number] Name: ASHLEE MILLER Rep #:[id number] : 1950 72 From: Donald Guzman MD PCP: Dr. Jaida Kwong MD Status:ADM IN [place] [facility] [place] HPI - General General Date of Admission: 11/25/22 Date of Service: 11/25/22 Chief Complaint: Chest pain HPI Narrative ASHLEE MILLER, is a 72 F with a significant history of tobacco abuse; COPD on 5 Lnasal cannula oxygen as needed; pneumonia and pleurisy who presents to emergencydepartment with sudden onset excruciating right-sided sharp chest pain that radiated to her right back reminiscent with her previous history of pleurisy. Her pain improves with lying still and the pain is aggravated by moving. Associated with her symptoms is nausea and dry heaving. She denies any suman vomiting. Further, she reports of shortness of breath. She denies wheezing. She reports chronic productive cough of clear to yellow sputum which is unchanged. She reports chills. She reports a poor appetite. She reports needing oxygen all day. [facility] Medical History Cataract Collapsed lung COPD (chronic obstructive pulmonary disease) Osteoporosis Pleurisy Port placement VATS bullectomy/doxy peurodesis (left) Visual disturbances, right eye Home Medications ipratropium 0.5 mg-albuterol 3 mg (2.5 mg base)/3 mL nebulization soln 3 ml inhalation Q4H PRN PRN SOB &/OR WHEEZING #180 mL 08/28/20 [Rx Last Taken 11/25/22] albuterol sulfate 90 mcg/actuation aerosol inhaler (Ventolin HFA) 2 puff inhalation Q4H PRN shortness of breath or wheezing #18 grams 06/03/22 [Rx Last Taken 11/25/22] budesonide 160 mcg-glycopyr 9 mcg-formot 4.8 mcg/actuation HFA inhaler (Breztri Aerosphere) 2 inh inhalation BID #10.7 grams 06/03/22 [Rx Last Taken 11/25/22] Allergy/AdvReac Type Severity Reaction Status Date / Time No Known Allergies Allergy Verified 06/03/22 14:14 Family History Mother Hypoglycemia Neuropathy Thyroid disorder Hypertension Heart disease Diverticulitis Father COPD (chronic obstructive pulmonary disease) Surgical History History of bilateral mastectomy History of breast biopsy History of cataract extraction History of exploratory laparotomy Social History Smoking Status: Heavy Smoker (>10/day) alcohol intake: never substance use type: does not use ROS ROS Narrative Pertinent positives and pertinent negatives as noted in HPI. All other systems were reviewed and are negative Vital Signs Vital Signs Vital Signs: 11/25/22 16:47 11/25/22 16:48 11/25/22 17:26 Temperature 97.8 F Temperature Source Temporal Pulse Rate 125 H Respiratory Rate 28 H Respiratory Effort Respiratory Pattern Blood Pressure 131/71 H Blood Pressure Mean 91 Pulse Ox 97 100 Oxygen Delivery Method Nasal Cannula Nasal Cannula Oxygen Flow Rate (L/min) 5 5 11/25/22 17:27 11/25/22 17:53 11/25/22 17:46 Temperature Temperature Source Pulse Rate 107 H 108 H Respiratory Rate 20 H 21 H Respiratory Effort Short of Breath Respiratory Pattern Tachypnea Blood Pressure 112/61 Blood Pressure Mean 78 Pulse Ox 94 Oxygen Delivery Method Nasal Cannula Oxygen Flow Rate (L/min) 2 11/25/22 18:00 11/25/22 18:33 11/25/22 19:00 Temperature 100.7 F H Temperature Source Oral Pulse Rate 97 Respiratory Rate 19 H Respiratory Effort Respiratory Pattern Blood Pressure 105/82 H Blood Pressure Mean 89 Pulse Ox 94 96 Oxygen Delivery Method Nasal Cannula Nasal Cannula Oxygen Flow Rate (L/min) 3 3 11/25/22 19:00 11/25/22 20:00 Temperature 100.7 F H 100.5 F H Temperature Source Oral Oral Pulse Rate 97 90 Respiratory Rate 19 H 17 Respiratory Effort Respiratory Pattern Blood Pressure 105/82 H 113/56 L Blood Pressure Mean 89 75 Pulse Ox 96 99 Oxygen Delivery Method Nasal Cannula Nasal Cannula Oxygen Flow Rate (L/min) 3 3 Weight Weight: 36.7 kg Body Mass Index (BMI) 13.8 Physical Exam Narrative Physical exam: General: Well-nourished, well-developed. Head: Normocephalic, atraumatic, no tenderness Eyes: Vision is grossly intact. EOMI ENT, no trauma, moist mucous membranes, no rhinorrhea Neck: Nontender, No thyromegaly. CVS: Regular rate and rhythm. S1-S2 present. No murmur, gallop or rub. Respiratory : Diminished bilaterally, chest wall nontender Abdomen: Soft, nontender, nondistended, normal bowel sounds, no masses : Deferred Back: Nontender, no CVA tenderness, no midline spinal tenderness, deformities, step-offs Extremities: Cachectic, nontender full range of motion, no trauma Skin: Normal color, no trauma, abrasions Neuro: Alert, oriented, cranial nerves II through XII grossly intact. Psychiatry: Normal mood. Normal affect. Not depressed. Not anxious. Results Lab / Micro Data Result Diagrams: 11/25/22 17:24 11/25/22 17:24 Labs: Laboratory Results - last 24 hr 11/25/22 17:24: WBC 19.1 H, RBC 4.77, Hgb 14.4, Hct 43.8, MCV 91.8, MCH 30.2, MCHC 32.9, RDW Std Deviation 44.9 H, RDW Coeff of Jin 13.2, Plt Count 246, MPV 8.7, Immature Gran % (Auto) 0.600, Neut % (Auto) 90.8 H, Lymph % (Auto) 4.2 L, [place] % (Auto) 4.1, Eos % (Auto) 0.0, Baso % (Auto) 0.3, Absolute Neuts (auto) 17.3 H, Absolute Lymphs (auto) 0.80 L, Nucleated RBC % 0 11/25/22 17:24: Sodium 137, Potassium 4.0, Chloride 104, Carbon Dioxide 28.0, Anion Gap 5, BUN 20 H, Creatinine 0.85, Est GFR (MDRD) Af Amer 85, Est GFR (MDRD) Non- Af 70, BUN/Creatinine Ratio 23.4 H, Glucose 115 H, Calcium 9.6, Troponin I High Sens 5 11/25/22 18:45: Lactic Acid 0.9 11/25/22 19:35: Troponin I High Sens 5 Radiology Impression Chest X-Ray 11/25/22 17:45 IMPRESSION: 1. Interval development of diffuse interstitial infiltrate in the RIGHT upper lobe, and patchy area of atelectasis versus infiltrate and scar at the LEFT base. 2. Sequelae of COPD. 3. No airspace consolidation, congestive failure, or effusion. Electronically Signed: Angel Calderon MD at 18:15 EDT , Assessment & Plan Assessment/Plan (1) SIRS (systemic inflammatory response syndrome): (2) Chest pain: (3) Pneumonia: (4) Smoking greater than 40 pack years: (5) Severe protein-energy malnutrition: (6) Tobacco abuse: PLAN: Plan Pneumonia with pleurisy Gram-positive, gram-negative or atypical. Patient meets this criteria with a white count of 19,100; Tmax of 100.7 Fahrenheit. Tachycardia with highest heart rate of 125. Lactic acid: 0.9. There is no organ dysfunction to be classified as sepsis. Sepsis ruled out. Blood culture ?2 is pending Chest x-ray: Impression by radiologist: 1.? Interval development of diffuse interstitial infiltrate in the RIGHT upper lobe, and patchy area of atelectasis versus infiltrate and scar at the LEFT base. 2.? Sequelae of COPD. 3.? No airspace consolidation, congestive failure, or effusion Chest x-ray was independently interpreted by hospitalist: Agrees with radiology interpretation. Antibiotics: Ceftriaxone and azithromycin IV ordered. Legionella antigen screen and Strep antigen ordered Trend CBC and BMP Received telemetry 125 mg IV at the emergency department.Prednisone 40 mg daily ordered. Prednisone 40 mg daily ordered. Severe protein calorie malnutrition Cachectic. BMI of 13.9 kg per metered square. Ensure plud ordered. Nutrition consult Tobacco abuse Declined nicotine patch or gum. Counseled. COPD Does not appear to be in exacerbation. Home inhalers continued. DVT Prophylaxis subcutaneous Lovenox adjusted by weight. Charges/Coding Visit Charges Inpatient E&M: 29536 Init Hosp L3 11/25/226 <Electronically signed by Donald Guzman MD> Cosigner Signature (if applicable): CC: Dr. Jaida Kwong MD; Dr. Donald Guzman MD~ Signed ADDENDUM by Dr. Donald Guzman MD on 11/26/22 at 1945 Addendum Severe protein calorie malnutrition Cachectic.? BMI of 13.9 kg per metered square.? Ensure plus ordered.? Nutrition consult 11/26/221945<Electronically signed by Donald Guzman MD> Cosigner Signature (if applicable): cc: Dr. Jaida Kwong MD; Dr. Donald Guzman MD ~* Signed [facility] Work Phone: 1(819) 850-179006-07-[address] Bravo [facility] November 26, 2022 3:12pm Note Date/Time November 26, 2022 10:19 am [facility] Medical Records Department [address] [place] [address] Progress Note - Hospitalist 11/26/22 1013 MR#: [id number] Acct: [id number] Name: ASHLEE MILLER Rep #:[id number] : 1950 72 From: MARLEY KNOTT PCP: Dr. Jaida Kwong MD Status:ADM IN Location: [place] [address] Reason for Visit Reason for Visit: Diagnoses Unspecified severe protein-calorie malnutrition (11/25/22) Nicotine dependence, cigarettes, uncomplicated (11/25/22) Pneumonia, unspecified organism (11/25/22) Chest pain, unspecified (11/25/22) Systemic inflammatory response syndrome (SIRS) of non-infectious origin without acute organ dysfunction (11/25/22) Tobacco use (11/25/22) Subjective Subjective Patient sitting up in bed, alert, and eating breakfast. States feeling better this morning than last night when she came in. Currently using 3 L nasal cannula with extension tubing; has prescription to wear 5 L with exertion/ambulation. Moist cough present but denies sputum production this morning. Objective Data Objective Data Vital Signs: Vital Signs Temp Pulse Resp BP Pulse Ox O2 Del Method O2 Flow Rate 97.6 F L 88 18 101/55 L 98 Nasal Cannula 3 11/26/22 08:40 11/26/22 10:10 11/26/22 10:10 11/26/22 08:40 11/26/22 10:10 11/26/22 10:10 11/26/22 10:10 Oxygen Flow Rate (L/min) 3 Oxygen Delivery Method Nasal Cannula Weight: 35.068 kg Body Mass Index (BMI) 13.2 Intake & Output: Intake and Output for Last 24 Hours 11/24/22 11/25/22 11/26/22 23:59 23:59 23:59 Intake Total 1415 / 1815 400 / 400 Output Total 550 / 550 Balance 1415 / 1815 -150 / -150 Lab / Micro Data Result Diagrams: 11/26/22 06:10 11/26/22 06:10 Labs: Laboratory Results - last 24 hr 11/25/22 17:24: WBC 19.1 H, RBC 4.77, Hgb 14.4, Hct 43.8, MCV 91.8, MCH 30.2, MCHC 32.9, RDW Std Deviation 44.9 H, RDW Coeff of Jin 13.2, Plt Count 246, MPV 8.7, Immature Gran % (Auto) 0.600, Neut % (Auto) 90.8 H, Lymph % (Auto) 4.2 L, [place] % (Auto) 4.1, Eos % (Auto) 0.0, Baso % (Auto) 0.3, Absolute Neuts (auto) 17.3 H, Absolute Lymphs (auto) 0.80 L, Nucleated RBC % 0 11/25/22 17:24: Sodium 137, Potassium 4.0, Chloride 104, Carbon Dioxide 28.0, Anion Gap 5, BUN 20 H, Creatinine 0.85, Est GFR (MDRD) Af Amer 85, Est GFR (MDRD) Non- Af 70, BUN/Creatinine Ratio 23.4 H, Glucose 115 H, Calcium 9.6, Troponin I High Sens 5 11/25/22 18:45: Lactic Acid 0.9 11/25/22 19:35: Troponin I High Sens 5 11/26/22 06:10: WBC 16.2 H, RBC 4.04 L, Hgb 12.2, Hct 37.9, MCV 93.8, MCH 30.2, MCHC 32.2, RDW Std Deviation 46.1 H, RDW Coeff of Jin 13.2, Plt Count 207, MPV 9.5, Immature Gran % (Auto) 1.100 H, Neut % (Auto) 91.1 H, Lymph % (Auto) 4.1 L,[place] % (Auto) 3.4, Eos % (Auto) 0.0, Baso % (Auto) 0.3, Absolute Neuts (auto) 14.8 H, Absolute Lymphs (auto) 0.67 L, Nucleated RBC % 0, Differential Comment SCANNED 11/26/22 06:10: Sodium 136, Potassium 3.6, Chloride 108 H, Carbon Dioxide 25.0, Anion Gap 3 L, BUN 20 H, Creatinine 0.51 L, Estim Creat Clear Calc 28.98, Est GFR (MDRD) Af Amer 154, Est GFR (MDRD) Non-Af 127, BUN/Creatinine Ratio 39.3 H, Glucose 163 H, Calcium 8.7 Micro: Microbiology 11/25/22 21:31 Urine, Clean Catch Legionella Antigen - Final 11/25/22 21:31 Urine, Clean Catch Streptococcus pneumoniae Antigen (M - Final 11/25/22 18:45 Nasal Secretion SARS-CoV-2 & FLU Antigen (Rapid) - Final Radiography Diagnostic Testing: Radiology Impression Chest X-Ray 11/25/22 17:45 IMPRESSION: 1. Interval development of diffuse interstitial infiltrate in the RIGHT upper lobe, and patchy area of atelectasis versus infiltrate and scar at the LEFT base. 2. Sequelae of COPD. 3. No airspace consolidation, congestive failure, or effusion. Electronically Signed: Angel Calderon MD at 18:15 EDT , Physical Exam Const alert and oriented x3 HEENT moist oral mucous membranes Head and Scalp: normocephalic Eyes PERRL and EOMs intact bilaterally Neck supple, no JVD and no carotid bruits Chest Chest Narrative: Abnormal inspection of the chest, symmetrical chest wall rise with equal excursion. Noted bilateral radical mastectomy, without augmentation. Resp Effort and Inspection: able to speak in complete sentences, actively coughing non-productive, moist and normal to patient, retractions intercostal and sternaland other His dyspnea and oxygen needs with exertion. Auscultation: rales right base and diminished lung sounds right upper Percussion: dullness Upper: right Cardio regular rate, regular rhythm, S1 normal heart sound, S2 normal heart sound, no murmurs, no rub and no gallops GI normal to inspection, nondistended, normoactive bowel sounds, soft to palpation and non-tender no CVA tenderness Back/Spine normal ROM, no thoracic nor lumbar tenderness, thoraco-lumbar ROM normal and straight leg raise negative bilaterally Extremity normal to inspection and full ROM Neuro oriented x3, CN's II-XII intact bilaterally, moves all extremities, no focal motor deficits and no sensory deficits noted Motor Exam: muscle tone normal throughout Psych affect normal Assessment & Plan Assessment/Plan (1) Pneumonia: (2) Chest pain: (3) Tobacco abuse: PLAN: Plan 1. Chest pain secondary to pneumonia - CXR showing diffuse infiltrate in right upper lobe and infiltrate vs atelectasis in left base; leukocytosis and left shift present on CBC; troponin x2 negative at 5; findings correlate with pneumonia; blood cultures x2 pending; BPs trending 101-115/53-59 with MAPs consistently greater than 65mmHg this admission - history of COPD stage 4 on GOLD scale; CXR demonstrated hyperinflated lungs and COPD sequelae but patient is not in an exacerbation state of the disease; noadditional steroids necessary at this time; continuing home albuterol inhalationand oxygen supply therapies - patient has sternal and intercostal retractions without any noted distress; breathing pattern stated as normal per patient 2. 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 3. Malnutrition - cachectic body habitus; patient denies appetite changes; reports food poisoning 2weeks ago with profuse vomiting for 24hours, but no other dietary changes - educated and encouraged high protein and higher calorie food stuffs; recommended liquid nutritional supplements as well DVT: Lovenox 11/26/22 1450 <Electronically signed by MARLEY KNOTT > Cosigner Signature (if applicable): 11/26/22 1512 <Electronically signed by Singh Bravo MD> CC: ~ Signed [facility] Work Phone: 1(922) 304-122906-07-[address] Bravo [facility] November 26, 2022 9:13am Note Date/Time November 26, 2022 9:13a [facility] Medical Records Department [address] [place] [id number] Progress Note - Hospitalist 11/26/2210 MR#: [id number] Acct: [id number] Name: ASHLEE MILLER Rep #:[id number] : 1950 72 From: Singh henderson MD PCP: Dr. Jaida Kwong MD Status:ADM IN Location: [place] [address] Subjective Subjective Well, feels better. She is only on 3 L nasal cannula, she is supposed to wear 5with exertion at home Objective Data Objective Data Vital Signs: Vital Signs Temp Pulse Resp BP Pulse Ox O2 Del Method O2 Flow Rate 97.6 F L 72 18 101/55 L 93 Room Air 3 11/26/22 08:40 11/26/22 08:40 11/26/22 08:40 11/26/22 08:40 11/26/22 08:40 11/26/22 08:40 11/26/22 08:39 Oxygen Flow Rate (L/min) 3 Oxygen Delivery Method Room Air Weight: 77 lb 5 oz Body Mass Index (BMI) 13.2 Intake & Output: Intake and Output for Last 24 Hours 11/25/22 11/26/22 11/27/22 03:59 03:59 03:59 Intake Total 1814 Output Total 550 / 550 Balance 1814 -550 / -550 Lab / Micro Data Result Diagrams: 11/26/22 06:10 11/26/22 06:10 Labs: Laboratory Results - last 24 hr 11/25/22 17:24: WBC 19.1 H, RBC 4.77, Hgb 14.4, Hct 43.8, MCV 91.8, MCH 30.2, MCHC 32.9, RDW Std Deviation 44.9 H, RDW Coeff of Jin 13.2, Plt Count 246, MPV 8.7, Immature Gran % (Auto) 0.600, Neut % (Auto) 90.8 H, Lymph % (Auto) 4.2 L, [place] % (Auto) 4.1, Eos % (Auto) 0.0, Baso % (Auto) 0.3, Absolute Neuts (auto) 17.3 H, Absolute Lymphs (auto) 0.80 L, Nucleated RBC % 0 11/25/22 17:24: Sodium 137, Potassium 4.0, Chloride 104, Carbon Dioxide 28.0, Anion Gap 5, BUN 20 H, Creatinine 0.85, Est GFR (MDRD) Af Amer 85, Est GFR (MDRD) Non- Af 70, BUN/Creatinine Ratio 23.4 H, Glucose 115 H, Calcium 9.6, Troponin I High Sens 5 11/25/22 18:45: Lactic Acid 0.9 11/25/22 19:35: Troponin I High Sens 5 11/26/22 06:10: WBC 16.2 H, RBC 4.04 L, Hgb 12.2, Hct 37.9, MCV 93.8, MCH 30.2, MCHC 32.2, RDW Std Deviation 46.1 H, RDW Coeff of Jin 13.2, Plt Count 207, MPV 9.5, Immature Gran % (Auto) 1.100 H, Neut % (Auto) 91.1 H, Lymph % (Auto) 4.1 L,[place] % (Auto) 3.4, Eos % (Auto) 0.0, Baso % (Auto) 0.3, Absolute Neuts (auto) 14.8 H, Absolute Lymphs (auto) 0.67 L, Nucleated RBC % 0, Differential Comment SCANNED 11/26/22 06:10: Sodium 136, Potassium 3.6, Chloride 108 H, Carbon Dioxide 25.0, Anion Gap 3 L, BUN 20 H, Creatinine 0.51 L, Estim Creat Clear Calc 28.98, Est GFR (MDRD) Af Amer 154, Est GFR (MDRD) Non-Af 127, BUN/Creatinine Ratio 39.3 H, Glucose 163 H, Calcium 8.7 Micro: Microbiology 11/25/22 21:31 Urine, Clean Catch Legionella Antigen - Final 11/25/22 21:31 Urine, Clean Catch Streptococcus pneumoniae Antigen (M - Final 11/25/22 18:45 Nasal Secretion SARS-CoV-2 & FLU Antigen (Rapid) - Final Radiography Diagnostic Testing: Radiology Impression Chest X-Ray 11/25/22 17:45 IMPRESSION: 1. Interval development of diffuse interstitial infiltrate in the RIGHT upper lobe, and patchy area of atelectasis versus infiltrate and scar at the LEFT base. 2. Sequelae of COPD. 3. No airspace consolidation, congestive failure, or effusion. Electronically Signed: Angel Calderon MD at 18:15 EDT , Physical Exam Narrative General: Alert, Oriented x3, Cooperative, No apparent distress HEENT: Atraumatic, PERRLA, EOMI, Normocephalic, cachectic Oral: Moist Mucosa Neck: Supple, No JVD Lungs: Diminished, Normal air movement, No rhonchi, No wheeze, No rales, slight crackles Cardiovascular: Regular rate, Regular Rhythm, Normal S1, Normal S2, No murmurs Abdomen: Soft, Non Tender, Non-Distended, No Hepato-splenomegaly Extremities: No edema, Capillary Refill Less than 3 Seconds Skin: No rashes, No breakdown Musculoskeletal: No Tenderness to Palpation of Joints or Extremities Neurological: Cranial nerves II-XII grossly intact, Motor Exam 5/5 strength throughout, Sensory exam intact to light touch and pain Psych/Mental Status: Normal Affect, Appropriate Assessment & Plan Assessment/Plan (1) SIRS (systemic inflammatory response syndrome): (2) Chest pain: (3) Pneumonia: (4) Smoking greater than 40 pack years: (5) Severe protein-energy malnutrition: (6) Tobacco abuse: PLAN: Plan 1. Bilateral bacterial pneumonia with pleurisy/COPD not in exacerbation/tobaccoabuse ? Continue with antibiotics, urine antigens are negative ? We will hold off on steroids at this time ? Leukocytosis is improving ? Continue with her home inhalers ? Discussed cessation Severe protein calorie malnutrition Cachectic. BMI of 13.9 kg per metered square. Ensure plud ordered. Nutrition consult DVT: Lovenox Charges/Coding Visit Charges Inpatient E&M: 94548 Subs Hosp L2 11/26/2213 <Electronically signed by Singh Bravo MD> Cosigner Signature (if applicable): CC: ~ Signed [facility] Work Phone: [phone]) 157-550906-07-[address] Bazzi [facility] November 25, 2022 10:09pm Note Date/Time November 25, 2022 5:46p m [facility] Medical Records Department [address] [place] [address] Emergency Department Summary 11/25/22 MR#: [id number] Acct: [id number] Name: ASHLEE MILLER Rep #:[id number] : 1950 72 From: Fransico Bazzi MD PCP: Dr. Jaida Kwong MD Status:ADM IN [facility] History of Present Illness Chief Complaint: Chest Pain Narrative Narrative: 72-year-old female past medical history of COPD, wears 5 L of oxygen per nasal cannula at all times presents with right-sided chest pain and shortness of breath that she has had since this morning. She denies any fevers but states she has felt chilled. She has an occasional productive cough. She states that the pain in her right chest and shortness of breath feels similar to when she had pneumonia, or pleurisy. She gets these often. She states her last steroid use was a few months ago. She denies any leg swelling, no exacerbating or alleviating factors. [facility] Medical History Cataract Collapsed lung COPD (chronic obstructive pulmonary disease) Osteoporosis Pleurisy Port placement VATS bullectomy/doxy peurodesis (left) Visual disturbances, right eye Home Medications ipratropium 0.5 mg-albuterol 3 mg (2.5 mg base)/3 mL nebulization soln 3 ml inhalation Q4H PRN PRN SOB &/OR WHEEZING #180 mL 08/28/20 [Rx Last Taken 11/25/22] albuterol sulfate 90 mcg/actuation aerosol inhaler (Ventolin HFA) 2 puff inhalation Q4H PRN shortness of breath or wheezing #18 grams 06/03/22 [Rx Last Taken 11/25/22] budesonide 160 mcg-glycopyr 9 mcg-formot 4.8 mcg/actuation HFA inhaler (Breztri Aerosphere) 2 inh inhalation BID #10.7 grams 06/03/22 [Rx Last Taken 11/25/22] Allergy/AdvReac Type Severity Reaction Status Date / Time No Known Allergies Allergy Verified 06/03/22 14:14 Family History Mother Hypoglycemia Neuropathy Thyroid disorder Hypertension Heart disease Diverticulitis Father COPD (chronic obstructive pulmonary disease) Surgical History History of bilateral mastectomy History of breast biopsy History of cataract extraction History of exploratory laparotomy Social History Smoking Status: Heavy Smoker (>10/day) alcohol intake: never substance use type: does not use ROS ROS ED ROS Narrative Constitutional: No fever, no rigors but feels chilled. HEENT: No sore throat. No neck pain. No loss of vision. No rhinorrhea. Cardiovascular: Right-sided chest pain. No palpitations. No pedal edema. Respiratory: Occasional productive cough, positive shortness of breath. Abdominal: No abdominal pain. No nausea. No vomiting. Genitourinary: No dysuria. No hematuria. Musculoskeletal: No myalgias. No arthralgias. Neurologic: No headaches. No dizziness. No lightheadedness. Skin: No rash. No change in color. Psychiatric: No depression. No anxiety. EXAM Physical Exam Narrative Exam Narrative: Afebrile. Vital signs noted. HEENT: Normocephalic. Atraumatic. PERRL, EOMI. Neck soft and supple. No pointtenderness or step off. Cardiovascular: Regular rate and rhythm. No murmurs, rubs, or gallops appreciated. Respiratory: No tachypnea. Decreased breath sounds bilateral bases. Gastrointestinal: Abdomen soft, nontender, with normoactive bowel sounds. No rebound or guarding. Neurological: Awake. Alert. Nonfocal, nonlateralizing. Skin: No rash. Normal color. No pallor. Musculoskeletal: No pedal edema. Full range of motion extremities. Const Vital Signs: 11/25/22 16:47 11/25/22 16:48 11/25/22 17:26 Temperature 97.8 F Temperature Source Temporal Pulse Rate 125 H Respiratory Rate 28 H Respiratory Effort Respiratory Pattern Blood Pressure 131/71 H Blood Pressure Mean 91 Pulse Ox 97 100 Oxygen Delivery Method Nasal Cannula Nasal Cannula Oxygen Flow Rate (L/min) 5 5 11/25/22 17:27 11/25/22 17:53 11/25/22 17:46 Temperature Temperature Source Pulse Rate 107 H 108 H Respiratory Rate 20 H 21 H Respiratory Effort Short of Breath Respiratory Pattern Tachypnea Blood Pressure 112/61 Blood Pressure Mean 78 Pulse Ox 94 Oxygen Delivery Method Nasal Cannula Oxygen Flow Rate (L/min) 2 11/25/22 18:00 11/25/22 18:33 11/25/22 19:00 Temperature 100.7 F H Temperature Source Oral Pulse Rate 97 Respiratory Rate 19 H Respiratory Effort Respiratory Pattern Blood Pressure 105/82 H Blood Pressure Mean 89 Pulse Ox 94 96 Oxygen Delivery Method Nasal Cannula Nasal Cannula Oxygen Flow Rate (L/min) 3 3 11/25/22 19:00 11/25/22 20:00 Temperature 100.7 F H 100.5 F H Temperature Source Oral Oral Pulse Rate 97 90 Respiratory Rate 19 H 17 Respiratory Effort Respiratory Pattern Blood Pressure 105/82 H 113/56 L Blood Pressure Mean 89 75 Pulse Ox 96 99 Oxygen Delivery Method Nasal Cannula Nasal Cannula Oxygen Flow Rate (L/min) 3 3 MDM MDM MDM Narrative Medical decision making narrative: Comprehensive work-up was pursued, concern is for COPD exacerbation versus pleurisy versus pneumonia. I have low suspicion for pneumothorax. She is satting well on her home oxygen at 100%. I reviewed her laboratory work and shehas a leukocytosis of 19.1, hemoglobin normal at 14.4, hematocrit 43.8, plateletcount normal at 246. Review of her electrolyte panel shows glucose appropriately elevated at 115 with a normal anion gap of 5. Her high-sensitivity troponin is 5, repeat is also 5 for a delta of 0. EKG interpreted by myself shows no evidence of STEMI, or gross ectopy. Chest x-ray interpreted by myself shows a right upper lobe pneumonia. I reviewed the radiology report which confirms my independent interpretation, they also added left lower lobe atelectasis versus scarring. Patient does have history of VATS procedure. She did spike a temperature of 100.7 degrees here in the emergency department. She was administered Tylenol and blood cultures were obtained. Her lactic acid is normal on review at 0.9. She was started on antibiotics in the form of azithromycin and Rocephin. Given her SIRS as she was very tachycardic in the 120s and has a leukocytosis and now has elevated temperature, patient was discussed with the hospitalist, Dr. Guzman, for admission. Patient is in stable condition. History & Record Review Additional record(s) reviewed:: Prior ED visit and Prior labs Lab Data Attestation: I reviewed the patient's lab results. Labs: Laboratory Results - last 24 hr 11/25/22 11/25/22 11/25/22 17:24 17:24 18:45 WBC 19.1 H RBC 4.77 Hgb 14.4 Hct 43.8 MCV 91.8 MCH 30.2 MCHC 32.9 RDW Std Deviation 44.9 H RDW Coeff of Jin 13.2 Plt Count 246 MPV 8.7 Immature Gran % (Auto) 0.600 Neut % (Auto) 90.8 H Lymph % (Auto) 4.2 L [place] % (Auto) 4.1 Eos % (Auto) 0.0 Baso % (Auto) 0.3 Absolute Neuts (auto) 17.3 H Absolute Lymphs (auto) 0.80 L Nucleated RBC % 0 Sodium 137 Potassium 4.0 Chloride 104 Carbon Dioxide 28.0 Anion Gap 5 BUN 20 H Creatinine 0.85 Est GFR (MDRD) Af Amer 85 Est GFR (MDRD) Non-Af 70 BUN/Creatinine Ratio 23.4 H Glucose 115 H Lactic Acid 0.9 Calcium 9.6 Troponin I High Sens 5 11/25/22 19:35 WBC RBC Hgb Hct MCV MCH MCHC RDW Std Deviation RDW Coeff of Jin Plt Count MPV Immature Gran % (Auto) Neut % (Auto) Lymph % (Auto) [place] % (Auto) Eos % (Auto) Baso % (Auto) Absolute Neuts (auto) Absolute Lymphs (auto) Nucleated RBC % Sodium Potassium Chloride Carbon Dioxide Anion Gap BUN Creatinine Est GFR (MDRD) Af Amer Est GFR (MDRD) Non-Af BUN/Creatinine Ratio Glucose Lactic Acid Calcium Troponin I High Sens 5 Radiography Diagnostic Testing: Clinical Impression(s) from Imaging Studies Chest X-Ray 11/25/22 17:45 IMPRESSION: 1. Interval development of diffuse interstitial infiltrate in the RIGHT upper lobe, and patchy area of atelectasis versus infiltrate and scar at the LEFT base. 2. Sequelae of COPD. 3. No airspace consolidation, congestive failure, or effusion. Electronically Signed: Angel Calderon MD at 18:15 EDT , Discharge Plan Dx/Rx/DC Orders Clinical Impression: Pneumonia, Chest pain, SIRS (systemic inflammatory response syndrome) Disposition Disposition: Acute Care Hospital [facility] Discharge Date/Time: 11/25/22 21:08 What to do if you have Problems For any increased pain, shortness of breath, bleeding, nausea or vomiting, chestpain, or any unexpected problems, contact your Primary Care Provider. Call [facility] ([phone]) or report to the closest Emergency Room. Call 911 if necessary. 11/25/222208 <Electronically signed by Fransico Bazzi MD> Cosigner Signature (if applicable): CC: Dr. Jaida Kwong MD ~ Signed [facility] Work Phone: 1(870) 944-485302-17-2022 NoteHNO ID: [id number] Author: Noe Massey MD Service: ? Author Type: Physician Type: Progress Notes Filed: 08/08/2021 2:36 PM Note Text: Subjective: Patient is status post upper endoscopy completed at [facility] on 08/01/2021. Did a biopsy of her [...] ?C (99.5 ?F), height 162.6 cm (5' 4), weight 36.7 kg (81 lb), SpO2 93 [...] next step would be to get esophageal manometry.[facility]01-17-2022 NoteHNO ID: [id number] Author: Noe Massey MD Service: ? Author Type: Physician Type: Progress Notes Filed: 07/19/2021 1:36 PM Note Text: HISTORY AND PHYSICAL Ashlee Karolyn Paul 1950 REFERRING PHYSICIAN: Noe Massey MD CHIEF COMPLAINT: Follow Up (colonoscopy, difficulty swallowing since procedure) HPI: The patient is a 70 year old female referred for endoscopy. Ashlee notes no history of colon complaints. The patient notes the following upper complaints: Ashlee denies abdominal pain.. Ashlee denies heartburn. Ashlee notes dysphagia. Ashlee denies a history of ulcers/ peptic ulcer disease. Ashlee has not undergone prior upper endoscopy. PAST [...] 05/23/2021 - GI SMALL BOWEL MULTIPLE SERIES 2007 - MASTECTOMY HX - PAST SURGICAL HISTORY [...] SHORTNESS OF BREATH OR FOR WHEEZING - wnziqhhbnqi-jshbixakj-bebhiblp 100-62.5-25 mcg Trelegy Ellipta 100 mcg-62.5 mcg-25 [...] entered by the nurse and reviewed by ks Nursing Notes: German Connor RN 07/08/2021 2:56 PM Signed REVIEW [...] of skin rash. Neurolog (more content not included)...[facility]01-17-2022 Miscellaneous Notes* Telephone Encounter - Ceci Ramirez - 07/08/2021 2:50 PM EST 07/25/21 [facility]sey [facility] of Past illness Narrative* Problem Noted Date Resolved Date Screening for colon cancer 05/23/202105/23 documented as of this encounter (statuses as of 12/18/2021) [facility]11-09-2021 NoteHNO ID: [id number] Author: Patricia Araya PA-C Service: ? Author Type: Physician [employer] Pain[employer] Helper Type: Progress Notes Filed: 04/30/2021 11:41 AM Note Text: HISTORY AND PHYSICAL Ashlee Miller 1950 REFERRING PHYSICIAN: Deshawn Torrez MD CHIEF COMPLAINT: Consult (colonoscopy consult) HPI: The patient is a 70 year old female referred for endoscopy. Ashlee notes no colon complaints. Patient denies any change in bowel habits, weight changes, blood in stools, black tarry stools or abdominal pain. Denies family history of colon issues. The patient notes no upper GI complaints. Ashlee has undergone prior endoscopy. Per PCP notes, most recent colonoscopy was performed by Dr. Massey at [facility] in 04/2017 with finding of tubular [...] GUIDED 1999 - COLONOSCOP W/ OR W/O [facility] SPEC unsure of date - GI SMALL BOWEL MULTIPLE SERIES 2006 - PAST SURGICAL HISTORY OF Left 11/20/2017 Lt VATS, bullectomy, Doxycycline pleurodesis - PNEUMOTHORAXCHEST TUBE 11/17/2017 left pneumocath placement [facility] Current Outpatient Medications Medication Sig - [...] entered by the nurse and reviewed by ks Nursing Notes: German Connor RN 04/30/2021 9:38 AM Signed REVIEW [...] of bruising, denies blee (more content not included)...[facility] Author Shun Garnett [facility] August 23, 2023 8:30am Note Date/Time August 23, 2023 8:13 am [facility] Medical Records Department [address] [place] [address] Emergency Department Summary 08/23/23 MR#: [id number] Acct: [id number] Name: ASHLEE MILLER Rep #:[id number] : 1950 72 From: Shun Garnett DO PCP: LARRY Garcia Status:REG ER Location: ED HPI History of Present Illness Chief Complaint: Chest Other Informant: patient and spouse/S.O. Narrative Narrative: Patient is a 72-year-old female with past medical history of COPD on chronic oxygen as well as history of obstructive sleep apnea and osteoporosis. She states that she has a chronic cough because there is COPD but in the last 2 to 3days the cough is worsened. She states has been no fever or chills and she denies any known sick contacts. She reports she is also now developed some right-sided chest discomfort. She states she does have history of pneumonia as well as spontaneous pneumothorax and has concern for this and therefore comes infor evaluation. [facility] Medical History (Updated 08/23/23 @ 08:[address] Shun Garnett DO) Cataract Collapsed lung COPD (chronic obstructive pulmonary disease) Osteoporosis Pleurisy Port placement VATS bullectomy/doxy peurodesis (left) Visual disturbances, right eye Home Medications albuterol sulfate 2.5 mg/3 mL (0.083 %) solution for nebulization 2.5 mg (3 mL) inhalation Q4H PRN Sob &/Or Wheezing #180 mL 12/01/22 [Rx Last Taken Unknown] budesonide 160 mcg-glycopyr 9 mcg-formot 4.8 mcg/actuation HFA inhaler (Breztri Aerosphere) 2 inh inhalation BID #10.7 grams 12/01/22 [Rx Last Taken Unknown] doxycycline monohydrate 100 mg capsule 100 mg PO BID #20 CAPSULES 06/21/23 [Rx Last Taken Unknown] prednisone 10 mg tablet 10 mg PO QDAY #90 tabs 07/15/23 [Rx Last Taken Unknown] albuterol sulfate 90 mcg/actuation aerosol inhaler (Ventolin HFA) 2 puff inhalation Q4H PRN shortness of breath or wheezing #18 grams 08/12/23 [Rx Last Taken Unknown] azithromycin 250 mg tablet (Zithromax Z-Jose Angel) See Rx Instructions PO .COMPLEX #6 tabs 08/23/23 [Rx Last Taken Unknown] methocarbamol 500 mg tablet 500 mg PO 4X/DAY PRN PRN Muscle pain/spasm #40 tabs 08/23/23 [Rx Last Taken Unknown] oxycodone-acetaminophen 5 mg-325 mg tablet (Percocet) 1 tab PO Q6H PRN pain 3 days #12 tabs 08/23/23 [Rx Last Taken Unknown] prednisone 20 mg tablet 40 mg (2 x 20 mg) PO DAILY 5 days #10 tabs 08/23/23 [Rx Last Taken Unknown] Allergy/AdvReac Type Severity Reaction Status Date / Time No Known Allergies Allergy Verified 06/21/23 09:25 Family History Mother Hypoglycemia Neuropathy Thyroid disorder Hypertension Heart disease Diverticulitis Father COPD (chronic obstructive pulmonary disease) Surgical History History of bilateral mastectomy History of breast biopsy History of cataract extraction History of exploratory laparotomy Social History Smoking Status: Heavy Smoker (>10/day) alcohol intake: never substance use type: does not use ROS ROS ED Constitutional Constitutional ED: Denies chills or fever(s) ENT ENT ED: Denies sore throat Cardiovascular Cardiovascular: Reports chest pain; Denies palpitations or racing heartbeat Respiratory/Chest Respiratory/Chest: Reports cough and dyspnea Gastrointestinal Gastrointestinal: Denies abdominal pain, diarrhea, nausea or vomiting Genitourinary Genitourinary ED: Denies dysuria Musculoskeletal Musculoskeletal: Denies myalgias Integumentary Denies rash Neurologic Neurologic: Denies headache(s) Hematologic/Lymphatic Hematologic/Lymphatic: Denies easy bleeding or easy bruising EXAM Physical Exam Const Vital Signs: 08/23/23 06:13 Temperature 98.0 F Temperature Source Oral Pulse Rate 106 H Respiratory Rate 23 H Blood Pressure 141/76 H Blood Pressure Mean 97 Pulse Ox 99 Oxygen Delivery Method Nasal Cannula Oxygen Flow Rate (L/min) 4 Positive well nourished and well developed General Appearance ED: well developed HEENT HEENT Narrative: No tongue or lip swelling no oral lesions no airway edema or compromise Eyes PERRL and EOMs intact bilaterally Neck supple and no JVD Neck Narrative: No nuchal rigidity or meningeal signs Chest Wall Chest Narrative: There is reproducible right anterior chest wall pain with palpation the patient states is the same pain she has been experiencing No obvious bony deformity or crepitance noted Resp normal respiratory effort Resp Narrative: Breath sounds are severely diminished throughout with faint expiratory wheeze consistent with history of COPD otherwise no nasal flaring or retractions or accessory muscle use Cardio regular rate and regular rhythm Rate: other Other Details: Heart is regular rate and rhythm Radial and carotid pulses equal and symmetric Extremity normal to inspection Extremity Narrative: No asymmetric edema no pitting edema negative Homans' sign bilaterally Neuro oriented x3, CN's II-XII intact bilaterally and no sensory deficits noted Sensorium / Orientation: alert Motor Exam: strength 5/5 throughout Psych mental status grossly normal Skin no rashes or lesions noted Skin Narrative: No overlying soft tissue changes to suggest trauma or infection MDM MDM MDM Narrative Medical decision making narrative: Patient arrived to the ER satting 98 to 100% on her normal oxygen. She reportedincreasing right-sided chest pain that occurred after a few days of increased cough. Differential diagnosis is for pneumonia versus pneumothorax versus acutecoronary syndrome. An EKG was obtained which shows no signs of ischemia or STEMI. Chest x-ray revealed no pneumonia or pneumothorax. Patient was treated for musculoskeletal pain and had improvement of her symptoms. On reevaluation she remained hemodynamically stable and therefore as symptoms most likely correlate with chest wall discomfort from increased coughing and there is no pneumonia or pneumothorax and vitals are stable and EKG does not show signs of ischemia she is otherwise safe for discharge History & Record Review Discussion w/independent historian: Patient and Significant other Radiography Diagnostic Testing: Chest x-ray as interpreted by the emergency medicine physician reveals hyperinflated lungs consistent with COPD without pneumonia or pneumothorax or pleural effusion Discharge Plan Triage Chief Complaint: Chest Other ED Provider: Shun Garnett Dx/Rx/DC Orders Clinical Impression: Acute chest wall pain, Acute exacerbation of chronic obstructive pulmonary disease, Osteoporosis, Tobacco abuse Instructions: COPD: Wheezing and Chest Tightness, ED Strain Chest Wall Prescriptions: New oxycodone-acetaminophen [Percocet] 5-325 mg tablet 1 tab PO Q6H PRN (Reason: pain) 3 Days Qty: 12 0RF methocarbamol 500 mg tablet 500 mg PO 4X/DAY PRN PRN (Reason: Muscle pain/spasm) Qty: 40 0RF prednisone 20 mg tablet 40 mg PO DAILY 5 Days Qty: 10 0RF azithromycin [Zithromax Z-Jose Angel] 250 mg tablet See Rx Instructions .ROUTE .COMPLEX Qty: 6 0RF Rx Instructions: For 250 mg dose pack: take 500 mg today (day 1), then 250 mg for 4 days (days2- 5) No Action albuterol sulfate 2.5 mg /3 mL (0.083 %) solution for nebulization 2.5 mg inhalation Q4H PRN (Reason: Sob &/Or Wheezing) Qty: 180 11RF Breztri Aerosphere 160-9-4.8 mcg/actuation HFA aerosol inhaler 2 inh inhalation BID Qty: 10.7 11RF doxycycline monohydrate 100 mg capsule 100 mg PO BID Qty: 20 0RF prednisone 10 mg tablet 10 mg PO QDAY Qty: 90 3RF albuterol sulfate [Ventolin HFA] 90 mcg/actuation HFA aerosol inhaler 2 puff INHALATION Q4H PRN (Reason: shortness of breath or wheezing) Qty: 18 5RF Primary Care Provider: Lena Suarez Referrals: Lena Suarez, [employer] [Primary Care Provider] - Activity Restrictions/Additional Instructions: Please take your prescribed medications as directed to help control your symptoms and return to the ER should you have any further concerns Disposition Disposition: Home, Self Care What to do if you have Problems For any increased pain, shortness of breath, bleeding, nausea or vomiting, chestpain, or any unexpected problems, contact your Primary Care Provider. Call [employer] [facility] ([phone]) or report to the closest Emergency Room. Call 911 if necessary. 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, stage 1 resolved Encounter for adjustment or management of vascular access device acute [facility] Work Phone: Evaluation noteNo assessment information available [facility] Work Phone: evaluation note* Diagnosis Onset Date Resolution Status Chest pain acute Pneumonia acute SIRS (systemic inflammatory response syndrome) acute Tobacco abuse acute Severe protein-energy malnutrition chronic Smoking greater than 40 pack years chronic [facility] Work Phone: Evaluation note* Diagnosis Onset Date Resolution Status Chest pain acute Pneumonia acute SIRS (systemic inflammatory response syndrome) acute Tobacco abuse acute Severe protein-energy malnutrition chronic Smoking greater than 40 pack years chronic 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 Respiratory failure with hypoxia chronic Smoking greater than 40 pack years chronic 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 Floaters chronic 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, stage 1 resolved History of breast cancer chr onic [facility] Work Phone: Evaluation note* Diagnosis Onset Date Resolution Status 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 Respiratory failure with hypoxia chronic 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 [facility] Work Phone: Evaluation note* Diagnosis Onset Date Resolution Status Admit Date Lung nodule acute December 09 12:40pm 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 December 09, 2024 12:40pm Respiratory failure with hypoxia chr onic December 09, 2024 12:40pm 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 December 09, 2024 12:40pm [facility] Work Phone: Hospital Discharge instructions Additional Instructions Please take your prescribed medications as directed to help control your symptoms and return to the ER should you have any further [facility] Work Phone: Hospital Discharge instructionsAmbulatory Orders* Prior Authorization Referral - ONC/HEM Location: None Selected [facility] Work Phone: Hospital Discharge instructionsAmbulatory Orders* Palliative Medicine Location: None Selected [facility] Work Phone: Progress note Author Donald Park [facility] Services Note Date/Time December 28, 2024 11:52 am [facility] [address] [place] [address] OFFICE VISIT Date of Service: 12/28/24 1132 MR#: [id number] Acct: [id number] Name: ASHLEE MILLER Rep #: [id number] : 1950 From: Donald Park MD Age/Sex: 74/F Location: [facility] Status: Signed HPI Subjective Date of Service 12/28/24 Chief Complaint F/u for R breast cancer. History of Present Illness 74 y.o.woman presented with abnormal mammogram, she had stereotactic breast biopsy on November 26, 2016 which showed invasive ductal carcinoma with atypical features, nuclear grade 2, ER/KY negative, HER-2 was 1-2+ by IHC, FISH negative. 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 Pathology showed Invasive ductal carcinoma, tumor size 8mm, sentinel node 1/1 negative, pT1b, pN0 M0, Stage IA disease. Received adjuvant chemotherapy with Taxotere/Cytoxan from 02/12/17 to 04/23/2017. Developed post menopausal bleeding 02/26/17 and subsequently underwent transvaginal US 03/13/[address] Treadwell which demonstrated possible 3mm endometrial polyp, fluid filled endometrial cavity, uterine fibroid and 2.7 complex left ovarian cyst. Endometrial curettage on 06/12/2017 showed atrophic endometrium. She remains on observation, comes in for follow up. Feels well, now on Home O2 by [facility] Medical History Pleurisy Collapsed lung VATS bullectomy/doxy peurodesis (left) Port placement Osteoporosis COPD (chronic obstructive pulmonary disease) Cataract Visual disturbances, right eye Surgical History History of exploratory laparotomy History of bilateral mastectomy History of breast biopsy History of cataract extraction Family History Mother Hypoglycemia Neuropathy Thyroid disorder Hypertension Heart disease Diverticulitis Father COPD (chronic obstructive pulmonary disease) Social History Smoking Status: Current every day smoker tobacco type: cigarettes alcohol intake: never substance use type: does not use Intake Vital Signs 08/10/24 09:00 12/09/24 06:22 12/28/24 11:33 Height 5 ft 3 in 5 ft 3 in 5 ft 3 in Weight: 31.099 kg BMI 12.1 BP 110/60 Blood Pressure Location Lt brachial Position Sitting Respiration 14 Pulse 99 Pulse Source Monitor Pulse Oximetry (%) 98 Oxygen Delivery Method nasal canula Oxygen Flow Rate (L/min) 2 Intake Is patient in pain?: No Allergies No Known Allergies Allergy (Verified 12/28/24 11:39) Medications ?Medication ?Instructions ?Recorded ?Confirmed ?Type methocarbamol 500 mg tablet 500 mg PO 4X/DAY PRN PRN M uscle 08/23/23 12/28/24 Rx pain/spasm #40 tabs guaifenesin 1,200 mg tablet, 1,200 mg PO Q12H #60 tabs 10/07/23 12/28/24 Rx extended release 12 hr lorazepam 0.5 mg tablet 0.5 mg PO Q6H PRN dyspnea 12/28/24 History oxybutynin chloride 5 mg 5 mg PO DAILY 10/07/2312/28 History tablet,extended release 24 hr budesonide 160 mcg-glycopyr 9 2 inh inhalation BID #10 .7 grams 12/25/23 12/28/24 Rx mcg-formot 4.8 mcg/actuation HFA inhaler (Breztri Aerosphere) azithromycin 250 mg tablet 250 mg PO QMWF #12 tabs 12/28/24 Rx albuterol sulfate 2.5 mg/3 mL 2.5 mg (3 mL) inhalation Q4H PRN 02/26/24 12/28/24 Rx (0.083 %) solution for nebulization Sob &/Or Wheezing #180 mL roflumilast 250 mcg tablet 250 mcg PO QDAY #30 tabs 12/28/24 Rx (Daliresp) voriconazole 50 mg tablet 150 mg PO BID 08/10/2412/28 History albuterol sulfate 90 mcg/actuation 2 puff inhalation Q 4H PRN 11/01/24 12/28/24 Rx aerosol inhaler (Ventolin HFA) shortness of breath or wheezing #18 grams prednisone 10 mg tablet 10 mg PO QDAY #90 tabs 11/0112/28/24 Rx amoxicillin 875 mg-potassium 1 tab PO Q12H #28 tabs 12/28/24 Rx clavulanate 125 mg tablet Have you fallen in the past year?: Yes Central Venous Access Central Venous Access: No Exam Physical Exam Narrative On home O2 by [place] Const alert, oriented x3 and no apparent distress General Appearance: cooperative and comfortable HEENT normocephalic, external ears normal and external nose normal Eyes no scleral icterus Neck supple Lymph Lymphatic: no lymphadenopathy noted Chest inspection of chest normal Chest Narrative: Bilateral mastectomy scars, no nodules. Resp normal respiratory effort, no use of accessory muscles and clear to auscultationbilaterally Cardio regular rate, regular rhythm, S1 normal heart sound, S2 normal heart sound and no murmurs GI normal to inspection, nondistended, normoactive bowel sounds no CVA tenderness Back/Spine thoracic and lumbar spine normal to inspection Extremity normal to inspection and no clubbing, cyanosis or edema Skin no rashes or lesions noted Neuro oriented x3, CN's II-XII intact bilaterally, moves all extremities and no focal motor deficits Psych mental status grossly normal Coding Level of Care Code Off vis,est,level 4 Exam Problem Focused Diagnoses History of breast cancer Z85.3 Anemia, unspecified type D64.9 Anemia type: unspecified type Assessment and Plan Assessment and Plan (1) History of breast cancer: Status: Chronic Comment: Right breast cancer, stage IA(pT1b pN0 M0), triple negative, status post right MRM with sentinel node biopsy and left prophylactic mastectomy. Received adjuvant Cytoxan and Taxotere x 4 cycles from 02/12/2017 to 04/23/2017. Comes for follow up. No evidence of disease clinically. Labs reviewed, WNL. Plan: To continue observation. (2) Anemia: Status: Acute Qualifiers: Anemia type: unspecified type Qualified Code(s): D64.9 - Anemia, unspecified Plan: To check Iron profile. To obtain stool for occult. Will call her with result Plan Details Follow Up: 12 Months Clinical Quality Measures Falls Risk Screening/Assistive Devices Have you fallen in the past year?: Yes 12/28/24 1152 <Electronically signed by Donald Luong> Date _ Donald Park MD Cosigner Signature: Date (if applicable) CC: LARRY Suarez ~ [facility] Work Phone: Progress note Author Donald Park [facility] Note Date/Time April 05, 2025 1 0:57am [facility] [place] [facility] [address] [address] OFFICE VISIT Date of Service: 04/05/25 1027 MR#: [id number] Acct: [id number] Name: ASHLEE MILLER Rep #: [id number] : 1950 From: Donald Park MD Age/Sex: 74/F [place] [facility] [place] Status: Signed HPI Subjective Date of Service 04/05/25 Chief Complaint F/u for Anemia History of Present Illness 74 y.o.woman presented with abnormal mammogram, she had stereotactic breast biopsy on November 26, 2016 which showed invasive ductal carcinoma with atypical features, nuclear grade 2, ER/KY negative, HER-2 was 1-2+ by IHC, FISH negative. 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 Pathology showed Invasive ductal carcinoma, tumor size 8mm, sentinel node 1/ negative, pT1b, pN0 M0, Stage IA disease. Received adjuvant chemotherapy with Taxotere/Cytoxan from 02/12/17 to 04/23/2017. Developed post menopausal bleeding 02/26/17 and subsequently underwent transvaginal US 03/13/[address] Treadwell which demonstrated possible 3mm endometrial polyp, fluid filled endometrial cavity, uterine fibroid and 2.7 complex left ovarian cyst. Endometrial curettage on 06/12/2017 showed atrophic endometrium. She remains on observation. She was found to have Iron deficiency anemia with Positive stooloccult blood, got IV Iron replacement with Injectafer on 01/16/2025 and 01/23/2025. Comes in for follow up. Feels well, now on Home O2 by [place]. Has not done Endoscopy because of breating problems. [facility] Medical History Pleurisy Collapsed lung VATS bullectomy/doxy peurodesis (left) Port placement Osteoporosis COPD (chronic obstructive pulmonary disease) Cataract Visual disturbances, right eye Surgical History History of exploratory laparotomy History of bilateral mastectomy History of breast biopsy History of cataract extraction Family History Mother Hypoglycemia Neuropathy Thyroid disorder Hypertension Heart disease Diverticulitis Father COPD (chronic obstructive pulmonary disease) Social History Smoking Status: Current every day smoker tobacco type: cigarettes alcohol intake: never substance use type: does not use Intake Vital Signs 01/11/25 15:57 02/17/25 08:11 04/05/25 10:28 Height 5 ft 3 in 5 ft 4 in 5 ft 4 in Weight: 33.112 kg BMI 12.5 BP 98/59 L Blood Pressure Location Lt brachial Position Sitting Respiration 18 Pulse 100 Pulse Source Monitor Temp 98.8 F Temperature Source Temporal Artery Pulse Oximetry (%) 98 Oxygen Delivery Method nasal canula Oxygen Flow Rate (L/min) 3 Intake Accompanied by: Is patient in pain?: Yes (chest/stomach) Pain scale (1-10): 5 Allergies No Known Allergies Allergy (Verified 04/05/25 10:33) Medications ?Medication ?Instructions ?Recorded ?Confirmed ?Type methocarbamol 500 mg tablet 500 mg PO 4X/DAY PRN PRN M uscle 08/23/23 04/05/25 Rx pain/spasm #40 tabs guaifenesin 1,200 mg tablet, 1,200 mg PO Q12H #60 tabs 10/07/23 04/05/25 Rx extended release 12 hr lorazepam 0.5 mg tablet 0.5 mg PO Q6H PRN dyspnea 04/05/25 History oxybutynin chloride 5 mg 5 mg PO DAILY 10/07/2304/05 History tablet,extended release 24 hr voriconazole 50 mg tablet 150 mg PO BID 08/10/2404/05 History albuterol sulfate 90 mcg/actuation 2 puff inhalation Q 4H PRN 11/01/24 04/05/25 Rx aerosol inhaler (Ventolin HFA) shortness of breath or wheezing #18 grams prednisone 10 mg tablet 10 mg PO QDAY #90 tabs 11/0104/05/25 Rx azithromycin 250 mg tablet 250 mg PO QMWF #12 tabs 11/1304/05/25 Rx Held on 03/20/25. Instructions: Order Changed ipratropium bromide 0.02 % 1.25 ml inhalation Q6-8H [place] N 01/24/25 04/05/25 Rx solution for inhalation shortness of breath or wheez ing #150 mL budesonide 160 mcg-glycopyr 9 2 inh inhalation BID #10 .7 grams 02/07/25 04/05/25 Rx mcg-formot 4.8 mcg/actuation HFA inhaler (Breztri Aerosphere) pantoprazole 40 mg tablet,delayed 40 mg PO QDAY #30 ta bs 03/02/25 04/05/25 Rx release albuterol sulfate 2.5 mg/3 mL 2.5 mg (3 mL) inhalation Q4H PRN 03/06/25 04/05/25 Rx (0.083 %) solution for nebulization Sob &/Or Wheezing #180 mL roflumilast 250 mcg tablet 500 mcg (2 x 250 mcg) PO QD AY #60 03/21/25 04/05/25 Rx (Daliresp) tabs potassium phosphate, monobasic 500 1,000 mg (2 x 500 m g) PO BID #20 04/05/25 04/05/25 Rx mg soluble tablet tabs Have you fallen in the past year?: No Central Venous Access Central Venous Access: No Microbiology 01/02/25 09:55 Stool Stool Occult Blood (LYNDSEY) - Final Occult Blood Positive Laboratory Tests 02/04/19 12/28/24 12/28/24 10:05 10:43 10:43 WBC 7.4 RBC 4.70 Hgb 14.2 9.6 L Hct 43.3 32.1 L 32.1 L Plt Count 284 Absolute Neuts (auto) Absolute Lymphs (auto) Sodium 138 Potassium 3.9 Chloride 105 Carbon Dioxide 28.0 BUN 18 Creatinine 0.70 Glucose 87 Calcium 9.2 Total Bilirubin 0.40 Phosphorus Magnesium AST 19 Iron ALT 21 Alkaline Phosphatase 84 Iron Saturation Ferritin 65 Lactate Dehydrogenase Total Protein 7.2 Albumin 3.8 Globulin 3.4 Albumin/Globulin Ratio 1.1 Vitamin B12 12/28/24 12/28/24 12/28/24 10:43 10:43 10:43 WBC 11.5 H 11.5 H RBC Hgb 9.6 L Hct Plt Count 486 H 486 H Absolute Neuts (auto) Absolute Lymphs (auto) Sodium Potassium Chloride Carbon Dioxide BUN Creatinine Glucose Calcium Total Bilirubin Phosphorus Magnesium AST Iron 21 L ALT Alkaline Phosphatase Iron Saturation 7.0 L Ferritin Lactate Dehydrogenase Total Protein Albumin Globulin Albumin/Globulin Ratio Vitamin B12 03/29/25 11:42 WBC 13.7 H RBC Hgb 10.8 L Hct 34.3 L Plt Count 395 Absolute Neuts (auto) 11.5 H Absolute Lymphs (auto) 1.26 Sodium 142 Potassium 3.5 Chloride 103 Carbon Dioxide 30.1 BUN 24 H Creatinine 0.39 L Glucose 90 Calcium 9.4 Total Bilirubin 0.17 Phosphorus 1.5 L Magnesium 2.1 AST 17 Iron 72 ALT 15 Alkaline Phosphatase 129 H Iron Saturation 35.1 Ferritin 949 H Lactate Dehydrogenase 152 Total Protein 6.6 Albumin 3.7 Globulin 2.9 Albumin/Globulin Ratio Vitamin B12 594 Exam Physical Exam Narrative On home O2 by [place] Const alert, oriented x3 and no apparent distress General Appearance: cooperative and comfortable HEENT normocephalic, external ears normal and external nose normal Eyes no scleral icterus Neck supple Lymph Lymphatic: no lymphadenopathy noted Chest inspection of chest normal Chest Narrative: Bilateral mastectomy scars, no nodules. Resp normal respiratory effort, no use of accessory muscles and clear to auscultationbilaterally Cardio regular rate, regular rhythm, S1 normal heart sound, S2 normal heart sound and no murmurs GI normal to inspection, nondistended, normoactive bowel sounds no CVA tenderness Back/Spine thoracic and lumbar spine normal to inspection Extremity normal to inspection and no clubbing, cyanosis or edema Skin no rashes or lesions noted Neuro oriented x3, CN's II-XII intact bilaterally, moves all extremities and no focal motor deficits Psych mental status grossly normal Coding Level of Care Code Off vis,est,level 3 Exam Problem Focused Diagnoses Iron deficiency anemia due to chronic blood loss D50.0 Iron deficiency anemia type: chronic blood loss Low phosphate levels E83.39 Assessment and Plan Assessment and Plan (1) Iron deficiency anemia: Status: Chronic Qualifiers: Iron deficiency anemia type: chronic blood loss Qualified Code(s): D50.0 - Iron deficiency anemia secondary to blood loss (chronic) Comment: S/P IV Iron replacement with Injectafer on 01/16/2025 and 01/23/2025, iron profile has corrected. Has not done Colonoscopy because of breathing problems. Plan: To start Oral Iron. F/u with GI for positive stool occult blood. (2) Low phosphate levels: Status: Acute Plan: To do Phosphate replacement orally. Orders: Orders CBC W/Diff, Automated 06/28/25 D50.0 - Iron deficiency anemia secondary to blood loss (chronic), E83.39 - Other disorders of phosphorus metabolism, Z85.3 -Personal history of malignant neoplasm of breast Comprehensive Metabolic Profil 06/28/25 D50.0 - Iron deficiency anemia secondary to blood loss (chronic), E83.39 - Other disorders of phosphorus metabolism, Z85.3 - Personal history of malignant neoplasm of breast LDH 06/28/25 D50.0 - Iron deficiency anemia secondary to blood loss (chronic), E83.39 - Other disorders of phosphorus metabolism, Z85.3 - Personal history of malignant neoplasm of breast Erythrocyte Sed Rate 06/28/25 D50.0 - 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 (chronic), E83.39 - Other disorders of phosphorus metabolism, Z85.3 - Personal history of malignant neoplasm of breast CRP 06/28/25 D50.0 - Iron deficiency anemia secondary to blood loss (chronic), E83.39 - Other disorders of phosphorus metabolism, Z85.3 - Personal history of malignant neoplasm of breast Iron+Iron Binding Capacity 06/28/25 D50.0 - Iron deficiency anemia secondary toblood loss (chronic), E83.39 - Other disorders of phosphorus metabolism, Z85.3 - Personal history of malignant neoplasm of breast Ferritin 06/28/25 D50.9 - Iron deficiency anemia, unspecified, E83.39 - Other disorders of phosphorus metabolism, Z85.3 - Personal history of malignant neoplasm of breast Retic Panel Count 06/28/25 D50.0 - Iron deficiency anemia secondary to blood loss (chronic), E83.39 - Other disorders of phosphorus metabolism, Z85.3 - Personal history of malignant neoplasm of breast Phosphorus 06/28/25 D50.0 - Iron deficiency anemia secondary to blood loss (chronic), E83.39 - Other disorders of phosphorus metabolism, Z85.3 - Personal history of malignant neoplasm of breast Magnesium 06/28/25 D50.0 - Iron deficiency anemia secondary to blood loss (chronic), E83.39 - Other disorders of phosphorus metabolism, Z85.3 - Personal history of malignant neoplasm of breast Medications: New potassium phosphate, monobasic 1,000 mg (2 x 500 mg) PO BID 20 tabs 0RF Plan Details Follow Up: 3 Months Clinical Quality Measures Falls Risk Screening/Assistive Devices Have you fallen in the past year?: No 04/05/25 5868 <Electronically signed by Donald Luong> Date _ Donald Park MD Cosigner Signature: Date (if applicable) CC: LARRY Suarez ~ [place] [employer] Work Phone: Reason for referral (narrative)* Outpatient Procedure (Routine) - Closed Specialty Diagnoses / Procedures Referred By Meghan awad Referred To Contact [facility] Diagnoses Oropharyngeal dysphagia Procedures EGD DIAGNOSTIC EGD W/O OR W/BRUSH/WASH Noe Massey MD [address] [place] [address] [facility] [address] [place] [address] Referral ID Status Reason Start Date Expiration Date V isits Requested Visits Authorized [id number] Closed Auto-Generate d Referral 07/15/2021 08/15/2021 1 1 [facility] for referral (narrative)No reason for referral information availableWMari[facility] Work Phone: Advance Directives No Advanced Directives Records FoundDocuments on File Type Date 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 Advance Directive(s) 08/01/2021 9:45 AM Advance Directive(s) 07/18/2021 4:58 PM Advance Directive(s) 05/23/2021 7:59 AM Advance Directive(s) 05/20/2021 8:38 AM Advance Directive(s) 11/18/2017 8:29 PM Advance Directive Response Recorded Date/ Time Advance Directives on File No Janus t 2016 8:26am Living Will No October 12, 2018 8:20pm Power of Protective Signal Operator No October 12 8:20pm Advance Directive Response Recorded Date/ Time Living Will No October 12, 2018 8:20pm Power of Protective Signal Operator No October 12 8:20pm Advance Directive Response Recorded Date/ Time Living Will No November 25, 2022 5 :27pm Power of Protective Signal Operator No November 25, 2022 5:27pm Advance Directive Response Recorded Date/ Time Living Will No November 25, 2022 9 :27pm Power of Protective Signal Operator No November 25, 2022 9:27pm Advance Directive Response Recorded Date/ Time Advance Directives on File No Janus t 2016 9:26am Living Will No November 25, 2022 9 :27pm Power of Protective Signal Operator No November 25, 2022 9:27pm Advance Directive Response Recorded Date/ Time Living Will No November 25, 2022 8 :27pm Power of Protective Signal Operator No November 25, 2022 8:27pm Advance Directive Response Recorded Date/ Time Living Will No June 21 023 9:33am Power of Protective Signal Operator No June 21, 2023 9:33am Advance Directive Response Recorded Date/ Time Living Will No August 23, 2023 6:13am Power of Protective Signal Operator No August 22 6:13am Advance Directive Response Recorded Date/ Time Living Will No November 23, 2023 5 :48am Power of Protective Signal Operator No November 23, 2023 5:48am Advance Directives on File No Janus 2016 9:26am Living Will No February 12 7 9:26am Power of Protective Signal Operator No February 12 017 9:26am Advance Directive Response Recorded Date/ Time Living Will No November 23, 2023 5 :48am Do you have a Healthcare Power of Protective Signal Operator? No November 23, 2023 5:48am Advance Directives on File No 2016 9:26am Living Will No February 12 7 9:26am Do you have a Healthcare Power of Protective Signal Operator? No February 12, 2017 9:26am Advance Directive Response Recorded Date/ Time Advance Directives on File No 2016 9:26am Living Will No February 12 7 9:26am Do you have a Healthcare Power of Protective Signal Operator? No February 12, 2017 9:26am Summary Purpose Family History No Family History Records Found Relationship Condition Age at Onset Recorded Date/T jasper mother Hypoglycemia Unknown Neuropathy Unknown Disorder of thyroid Unknown Hypertension Unknown Cardiac disease Unknown Diverticulitis Unknown father Chronic obstructive pulmonary disease Unk nown Chief Complaint and Reason for Visit Chief Complaint 1YR LABS LABS/HIP XRAY PORT REMOVAL R CHEST PAIN Reason for Visit Hip pain History of breast cancer Floaters Peripheral neuropathy due to chemotherapy Invasive ductal carcinoma of right breast, stage 1 Encounter for adjustment or management of vascular access device Chief Complaint R CHEST PAIN SMOKING >40PK YRS Chief Complaint PNEUMONIA Reason for Visit Chest pain Pneumonia SIRS (systemic inflammatory response syndrome) Tobacco abuse Severe protein-energy malnutrition Smoking greater than 40 pack years Chief Complaint PNEUMONIA Pneumonia Pneumonia Reason for Visit Chest pain Pneumonia SIRS (systemic inflammatory response syndrome) Tobacco abuse Severe protein-energy malnutrition Smoking greater than 40 pack years Chief Complaint PNEUMONIA Pneumonia Pneumonia 6 M FU LABS/HIP XRAY 1 YR LABS Reason for Visit Chest pain Pneumonia SIRS (systemic inflammatory response syndrome) Tobacco abuse Severe protein-energy malnutrition Smoking greater than 40 pack years Pulmonary cachexia due to COPD Respiratory failure with hypoxia Smoking greater than 40 pack years 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 Floaters Peripheral neuropathy due to chemotherapy Invasive ductal carcinoma of right breast, stage 1 History of breast cancer Chief Complaint 6 M FU SCREEN Reason for Visit Pulmonary cachexia d ue to COPD Respiratory failure with hypoxia 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 Chief Complaint 6 M FU SCREEN RIB PAIN Reason for Visit Pulmonary cachexia d ue to COPD Respiratory failure with hypoxia 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 Chief Complaint SCREEN RIB PAIN pleursy Chief Complaint Admit Date R HUMERUS FX RX HERE June 10, 2024 1:15pm SCREENING July 01, 2024 2 :44pm 6 M FU July 20, 2024 1 0:35am LABS/HIP XRAY July 26, 2024 7 :30am 4 WK F/U August 10, 2024 1:12pm Reason for Visit Admit Date Cough July 20, 2024 1 0:35am Lung nodule July 20, 2024 1 0:35am Pulmonary cachexia due to COPD June 232024 10:35am Respiratory failure with hypoxia July 20, 2024 10:35am 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 classif ication July 20, 2024 10:35am Floaters July 26, 2024 7 :30am 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 July 26, 2024 7:30am 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, stage 1 July 26, 2024 7:30am Breast cancer, right breast July 7:30am Chemotherapy management, encounter for F ebruary 2024 7:30am Educational circumstance July 26, 7:30am Rectal bleeding July 26, 2024 7 :30am Skin lesion July 26, 2024 7 :30am URI (upper respiratory infection) Februa 2024 7:30am Vaginal bleeding, abnormal July 26, 2024 7:30am Lung nodule August 10, 2024 1:12pm Pulmonary cachexia due to COPD August 10, 2024 1:12pm Respiratory failure with hypoxia Februar y 2024 1:12pm 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 classif ication August 10, 2024 1:12pm Chief Complaint Admit Date 6 M FU July 20, 2024 1 0:35am LABS/HIP XRAY July 26, 2024 7 :30am 4 WK F/U August 10, 2024 1:12pm Solitary pulmonary nodule October 28, 2024 8:16am Chief Complaint Admit Date Solitary pulmonary nodule October 28, 2024 8:16am 4 M FU December 09, 2024 12:4 0pm Reason for Visit Admit Date Lung nodule December 09, 2024 12:4 0pm Pulmonary cachexia due to COPD November 12:40pm Respiratory failure with hypoxia December 092024 12:40pm 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 classif ication December 09, 2024 12:40pm Chief Complaint Admit Date Solitary pulmonary nodule October 28, 2024 8:16am 4 M FU December 09, 2024 12:4 0pm LABS/HIP XRAY December 28, 2024 10:40 am 1 YEAR LABS December 28, 2024 10:53 am Reason for Visit Admit Date Lung nodule December 09, 2024 12:4 0pm Pulmonary cachexia due to COPD November 12:40pm Respiratory failure with hypoxia December 092024 12:40pm 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 classif ication December 09, 2024 12:40pm Floaters December 28, 2024 10:40 am 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 December 28, 2024 10:40am 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, stage 1 December 28, 2024 10:40am Breast cancer, right breast December 28 10:40am Chemotherapy management, encounter for Hiram brown 2024 10:40am Educational circumstance December 28, 2024 10:40am Rectal bleeding December 28, 2024 10:40 am Skin lesion December 28, 2024 10:40 am URI (upper respiratory infection) December 282024 10:40am Vaginal bleeding, abnormal December 28 10:40am Anemia December 28, 2024 10:53 am History of breast cancer December 28, 2024 10:53am Chief Complaint Admit Date Solitary pulmonary nodule October 28, 2024 8:16am 4 M FU December 09, 2024 12:4 0pm 1 YEAR LABS December 28, 2024 10:53 am LABS/HIP XRAY January 02, 2025 11:0 5am 3WKS NO LABS January 11, 2025 3:50 pm Reason for Visit Admit Date Lung nodule December 09, 2024 12:4 0pm Pulmonary cachexia due to COPD November 12:40pm Respiratory failure with hypoxia December 092024 12:40pm 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 classif ication December 09, 2024 12:40pm Anemia December 28, 2024 10:53 am History of breast cancer December 28, 2024 10:53am Floaters January 02, 2025 11:0 5am 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 January 02, 2025 11:05am 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, stage 1 January 02, 2025 11:05am Breast cancer, right breast January 02, 025 11:05am Chemotherapy management, encounter for Hiram brown 2024 11:05am Educational circumstance January 02, 2025 11:05am Rectal bleeding January 02, 2025 11:0 5am Skin lesion January 02, 2025 11:0 5am URI (upper respiratory infection) December 202024 11:05am Vaginal bleeding, abnormal January 02 11:05am Iron deficiency anemia January 11, 2025 3 :50pm Chief Complaint Admit Date Solitary pulmonary nodule October 28, 2024 8:16am 4 M FU December 09, 2024 12:4 0pm 1 YEAR LABS December 28, 2024 10:53 am 3WKS NO LABS January 11, 2025 3:50 pm LABS/HIP XRAY January 23, 2025 12: 30pm Needs oxygen concentrator January 24 2:43pm Reason for Visit Admit Date Lung nodule December 09, 2024 12:4 0pm Pulmonary cachexia due to COPD November 12:40pm Respiratory failure with hypoxia December 092024 12:40pm 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 classif ication December 09, 2024 12:40pm Anemia December 28, 2024 10:53 am History of breast cancer December 28, 2024 10:53am Iron deficiency anemia January 11, 2025 3 :50pm Floaters January 23, 2025 12: 30pm 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 January 23, 2025 12:30pm 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, stage 1 January 23, 2025 12:30pm Breast cancer, right breast January 23, 2025 12:30pm Chemotherapy management, encounter for A ugust 2024 12:30pm Educational circumstance January 23 12:30pm Rectal bleeding January 23, 2025 12: 30pm Skin lesion January 23, 2025 12: 30pm URI (upper respiratory infection) January 23, 2025 12:30pm Vaginal bleeding, abnormal January 23, 2 025 12:30pm Lung nodule January 24, 2025 2:4 3pm Pulmonary cachexia due to COPD January 2:43pm Respiratory failure with hypoxia January 24, 2025 2:43pm 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 classif ication January 24, 2025 2:43pm Chief Complaint Admit Date Solitary pulmonary nodule October 28, 2024 8:16am 4 M FU December 09, 2024 12:4 0pm 1 YEAR LABS December 28, 2024 10:53 am 3WKS NO LABS January 11, 2025 3:50 pm LABS/HIP XRAY January 23, 2025 12: 30pm Needs oxygen concentrator January 24 2:43pm PERSISTENT 202 X2.3 CM DENSITY IN LLL,Ch ronic obst January 30, 2025 10:30am Chief Complaint Admit Date Solitary pulmonary nodule October 28, 2024 8:16am 4 M FU December 09, 2024 12:4 0pm 1 YEAR LABS December 28, 2024 10:53 am 3WKS NO LABS January 11, 2025 3:50 pm LABS/HIP XRAY January 23, 2025 12: 30pm Needs oxygen concentrator January 24 2:43pm PERSISTENT 202 X2.3 CM DENSITY IN LLL,Ch ronic obst January 30, 2025 10:30am J44.9 - Chronic obstructive pulmonary di sease, uns February 03, 2025 12:32pm Chief Complaint Admit Date Solitary pulmonary nodule October 28, 2024 8:16am 4 M FU December 09, 2024 12:4 0pm 1 YEAR LABS December 28, 2024 10:53 am 3WKS NO LABS January 11, 2025 3:50 pm LABS/HIP XRAY January 23, 2025 12: 30pm Needs oxygen concentrator January 24 2:43pm PERSISTENT 202 X2.3 CM DENSITY IN LLL,Ch ronic obst January 30, 2025 10:30am J44.9 - Chronic obstructive pulmonary di sease, uns February 03, 2025 12:32pm J44.9 - Chronic obstructive pulmonary di sease, uns February 09, 2025 1:04pm LABS February 17, 2025 12 :27pm 2 M FU February 17, 2025 1: 09pm Reason for Visit Admit Date Lung nodule December 09, 2024 12:4 0pm Pulmonary cachexia due to COPD November 12:40pm Respiratory failure with hypoxia December 092024 12:40pm 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 classif ication December 09, 2024 12:40pm Anemia December 28, 2024 10:53 am History of breast cancer December 28, 2024 10:53am Iron deficiency anemia January 11, 2025 3 :50pm Floaters January 23, 2025 12: 30pm 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 January 23, 2025 12:30pm 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, stage 1 January 23, 2025 12:30pm Breast cancer, right breast January 23, 2025 12:30pm Chemotherapy management, encounter for A ugust 2024 12:30pm Educational circumstance January 23 12:30pm Rectal bleeding January 23, 2025 12: 30pm Skin lesion January 23, 2025 12: 30pm URI (upper respiratory infection) January 23, 2025 12:30pm Vaginal bleeding, abnormal January 23, 2 025 12:30pm Lung nodule January 24, 2025 2:4 3pm Pulmonary cachexia due to COPD January 2:43pm Respiratory failure with hypoxia January 24, 2025 2:43pm 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 classif ication January 24, 2025 2:43pm Lung nodule February 17, 2025 1: 09pm Pulmonary cachexia due to COPD February 172024 1:09pm Respiratory failure with hypoxia February 17, 2025 1:09pm 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 classif ication February 17, 2025 1:09pm Chief Complaint Admit Date 4 M FU December 09, 2024 12:4 0pm 1 YEAR LABS December 28, 2024 10:53 am 3WKS NO LABS January 11, 2025 3:50 pm LABS/HIP XRAY January 23, 2025 12: 30pm Needs oxygen concentrator January 24 2:43pm PERSISTENT 202 X2.3 CM DENSITY IN LLL,Ch ronic obst January 30, 2025 10:30am J44.9 - Chronic obstructive pulmonary di sease, uns February 03, 2025 12:32pm J44.9 - Chronic obstructive pulmonary di sease, uns February 09, 2025 1:04pm LABS February 17, 2025 12 :27pm 2 M FU February 17, 2025 1: 09pm PRE COLONOSCOPY March 02, 2025 11:03am Chief Complaint Admit Date 1 YEAR LABS December 28, 2024 10:53 am 3WKS NO LABS January 11, 2025 3:50 pm Needs oxygen concentrator January 24 2:43pm PERSISTENT 202 X2.3 CM DENSITY IN LLL,Ch ronic obst January 30, 2025 10:30am J44.9 - Chronic obstructive pulmonary di sease, uns February 03, 2025 12:32pm J44.9 - Chronic obstructive pulmonary di sease, uns February 09, 2025 1:04pm LABS February 17, 2025 12 :27pm 2 M FU February 17, 2025 1: 09pm PRE COLONOSCOPY March 02, 2025 11:03am LABS/HIP XRAY March 29, 2025 11 :35am AMENIA April 05, 2025 8 :46am 3MO LABS PRIOR April 05, 2025 1 0:14am Reason for Visit Admit Date Anemia December 28, 2024 10:53 am History of breast cancer December 28, 2024 10:53am Iron deficiency anemia January 11, 2025 3 :50pm Lung nodule January 24, 2025 2:4 3pm Pulmonary cachexia due to COPD January 2:43pm Respiratory failure with hypoxia January 24, 2025 2:43pm 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 classif ication January 24, 2025 2:43pm Lung nodule February 17, 2025 1: 09pm Pulmonary cachexia due to COPD February 172024 1:09pm Respiratory failure with hypoxia February 17, 2025 1:09pm 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 classif ication February 17, 2025 1:09pm Iron deficiency anemia March 02 025 11:03am Floaters March 29, 2025 11 :35am 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 March 29, 2025 11:35am 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, stage 1 March 29, 2025 11:35am Breast cancer, right breast March 29, 2025 11:35am Chemotherapy management, encounter for O ctober 2024 11:35am Educational circumstance March 29 11:35am Rectal bleeding March 29, 2025 11 :35am Skin lesion March 29, 2025 11 :35am URI (upper respiratory infection) Octobe r 2024 11:35am Vaginal bleeding, abnormal March 29, 2025 11:35am Low phosphate levels April 05, 2025 10:14am Iron deficiency anemia April 05 10:14am Additional Source Comments Source Comments (unrecognize d section and content) In the event this informatio n is protected by the Federal Confidentiality of Alcohol and Drug Abuse Patient Records regulations: The Federal rules restrict any use of the information to criminally investigate or prosecute any alcohol or drug abuse patient.[facility] Reason for Visit (unrecogniz ed section and content) Reason Comments 07/25/21 EGD Care Teams (unrecognized sec tion and content) Table Keeper Relationship Specialty Start Date End Date Jaida Kwong [address] [place] [address] PCP - General Family Practice 04/30/21 Team Status: Active Member Role Status Dates Dr. Deshawn Torrez MD Family Provider Active Dr. Jaida Kwong MD Primary Care Provider Active Team Status: Active Member Role Status Dates Fransico Bazzi MD Emergency Provider Active Dr. Jaida Kwong MD Primary Care Provider Active Dr. Donald Guzman MD Admit Provider, Attending Pro vider Active Team Status: Active Member Role Status Dates Fransico Bazzi MD Emergency Provider Active Dr. Jaida Kwong MD Primary Care Provider Active Dr. Donald Guzman MD Admit Provider, Other Provide r Active Dr. Singh Bravo MD Attending Provider, Other Provider Active Team Status: Inactive Member Role Status Dates Fransico Bazzi MD Emergency Provider Active Dr. Jaida Kwong MD Primary Care Provider Active Dr. Donald Guzman MD Admit Provider, Other Provide r Active Dr. Singh Bravo MD Attending Provider Active Team Status: Active Member Role Status Dates Dr. Deshawn Torrez MD Family Provider Active Lena Suarez , EL TEACHER-C Primary Care Provider Active Team Status: Inactive Member Role Status Dates Dr. Deshawn Torrez MD Referring Provider Active Swetha Lawrence NP, EL TEACHER-C Attending Provider Active Dr. Jaida Kwong MD Primary Care Provider Active Team Status: Inactive Member Role Status Dates Dr. Donald Park MD Attending Provider Active Dr. Jaida Kwong MD Primary Care Provider, Referrin g Provider Active Team Status: Active Member Role Status Dates Dr. Donald Park MD Attending Provider Active Dr. Deshawn Torrez MD Primary Care Provi yoel, Family Provider, Referring Provider Active Team Status: Inactive Member Role Status Dates Lena Suarez , EL TEACHER-C Primary Care Provide r, Attending Provider, Referring Provider Active Team Status: Inactive Member Role Status Dates Dr. Jaida Kwong MD Referring Provider Active Dr. Gee Staples MD Attending Provider Active Lenadwight Suarez , EL TEACHER-C Primary Care Provider Active Team Status: Inactive Member Role Status Dates Lena Suarez , EL TEACHER-C Primary Care Provider Active Dr. Katlin Hsu MD Emergency Provider Active Team Status: Inactive Member Role Status Dates Lena Suarez , EL TEACHER-C Primary Care Provider Active Dr. Katlin Hsu MD Attending Provider, Emergency Provider Active Team Status: Inactive Member Role Status Dates Lena Suarez , EL TEACHER-C Primary Care Provider Active Dr. Shun Garnett DO Emergency Provider Active Team Status: Inactive Member Role Status Dates Lena Suarez , EL TEACHER-C Primary Care Provider Active Start: June 10, 2024 End: June 10, 2024 Dr. Del Salamanca MD Attending Provider Active Start: June 10, 2024 End: June 10, 2024 Dr. Del Salamanca MD Referring Provider Active Start: June 10, 2024 End: June 10, 2024 Team Status: Inactive Member Role Status Dates Lena Suarez EL TE[employer]ER-C Primary Care Provider Active Start: July 01, 2024 End: July 01, 2024 Swetha Lawrence NP, EL TE[employer]ER-C Attending Provider Active Start: July 01, 2024 End: July 01, 2024 Swetha Lawrence EL TEACHER, EL TEACHER-C Referring Provider Active Start: July 01, 2024 End: July 01, 2024 Team Status: Inactive Member Role Status Dates Lena Suarez EL TEACHER-C Primary Care Provider Active Start: July 06, 2024 End: July 06, 2024 Kaylie Ames EL TEACHER-C Attending Provider Active Start: July 06, 2024 End: July 06, 2024 Kaylie Ames EL TEACHER-C Referring Provider Active Start: July 06, 2024 End: July 06, 2024 Team Status: Inactive Member Role Status Dates Lena Suarez EL TE[employer]ER-C Primary Care Provider Active Start: July 20, 2024 End: July 20, 2024 Lena Suarez EL TEACHER-C Referring Provider Active St art: July 20, 2024 End: July 20, 2024 Kaylie Ames EL TE[employer]ER-C Attending Provider Active Start: July 20, 2024 End: July 20, 2024 Team Status: Inactive Member Role Status Dates Lena Suarez EL TEACHER-C Primary Care Provider Active Start: July 20, 2024 End: July 20, 2024 Kaylie Ames EL TEACHER-C Attending Provider Active Start: July 20, 2024 End: July 20, 2024 Kaylie Ames EL TE[employer]ER-C Referring Provider Active Start: July 20, 2024 End: July 20, 2024 Team Status: Active Member Role Status Dates Dr. Donald Park MD Attending Provider Active S tart: July 26, 2024 Dr. Deshawn Torrez MD Primary Care Provider Active Start: July 26, 2024 Dr. Deshawn Torrez MD Family Provider Active Sta rt: July 26, 2024 Dr. Deshawn Torrez MD Referring Provider Active Start: July 26, 2024 Team Status: Inactive Member Role Status Dates Lena Suarez EL TE[employer]ER-C Primary Care Provider Active Start: August 10, 2024 End: August 10, 2024 Lena Suarez EL TE[employer]ER-C Referring Provider Active St art: August 10, 2024 End: August 10, 2024 LARRY Betts Attending Provider Active Start: August 10, 2024 End: August 10, 2024 Team Status: Inactive Member Role Status Dates Lena Suarez , EL TE[employer]ER-C Primary Care Provider Active Start: August 24, 2024 End: August 24, 2024 Dr. Sourav Finn MD Attending Provider Active Start: August 24, 2024 End: August 24, 2024 Dr. Sourav Finn MD Referring Provider Active Start: August 24, 2024 End: August 24, 2024 Team Status: Active Member Role Status Dates Lena Suarez EL TE[employer]ER-C Primary Care Provider Active Team Status: Inactive Member Role Status Dates Lena Suarez EL TE[employer]ER-C Primary Care Provider Active Start: September 12, 2024 End: September 12, 2024 Dr. Sourav Finn MD Attending Provider Active Start: September 12, 2024 End: September 12, 2024 Dr. Sourav Finn MD Referring Provider Active Start: September 12, 2024 End: September 12, 2024 Team Status: Inactive Member Role Status Dates Lena Suarez , EL TE[employer]ER-C Primary Care Provider Active Start: October 28, 2024 End: October 28, 2024 Kaylie Ames NP-C Attending Provider Active Start: October 28, 2024 End: October 28, 2024 Kaylie Ames NP-Shemar Referring Provider Active Start: October 28, 2024 End: October 28, 2024 Team Status: Inactive Member Role Status Dates Lena Suarez , EL TE[employer]ER-C Primary Care Provider Active Start: December 09, 2024 End: December 09, 2024 Lena Suarez EL TEACHER-C Referring Provider Active St art: December 09, 2024 End: December 09, 2024 Kaylie Ames NP-Shemar Attending Provider Active Start: December 09, 2024 End: December 09, 2024 Team Status: Active Member Role/Relationship Status Dates Lena Suarez , EL TE[employer]ER-C Primary Care Provider Active Team Status: Inactive Member Role/Relationship Status Dates Lena Suarez , EL TE[employer]ER-C Primary Care Provider Active Start: September 12, 2024 End: September 12, 2024 Dr. Sourav Finn MD Attending Provider Active Start: September 12, 2024 End: September 12, 2024 Dr. Sourav Finn MD Referring Provider Active Start: September 12, 2024 End: September 12, 2024 Team Status: Inactive Member Role/Relationship Status Dates Lena Suarez NP-C Primary Care Provider Active Start: October 28, 2024 End: October 28, 2024 Kaylie Ames NP-C Attending Provider Active Start: October 28, 2024 End: October 28, 2024 Kaylie Ames NP-C Referring Provider Active Start: October 28, 2024 End: October 28, 2024 Team Status: Inactive Member Role/Relationship Status Dates Lena Suarez NP-C Primary Care Provider Active Start: December 09, 2024 End: December 09, 2024 Lena Suarez NP-C Referring Provider Active St art: December 09, 2024 End: December 09, 2024 Kaylie Ames NP-C Attending Provider Active Start: December 09, 2024 End: December 09, 2024 Team Status: Active Member Role/Relationship Status Dates Dr. Donald Park MD Attending Provider Active S tart: December 28, 2024 Dr. Deshawn Torrez MD Primary Care Provider Active Start: December 28, 2024 Dr. Deshawn Torrez MD Family Provider Active Sta rt: December 28, 2024 Dr. Deshawn Torrez MD Referring Provider Active Start: December 28, 2024 Team Status: Inactive Member Role/Relationship Status Dates Lena Suarez EL TEACHER-C Primary Care Provider Active Start: December 28, 2024 End: December 28, 2024 Lena Suarez NP-C Referring Provider Active St art: December 28, 2024 End: December 28, 2024 Dr. Donald Park MD Attending Provider Active S tart: December 28, 2024 End: December 28, 2024 Team Status: Inactive Member Role/Relationship Status Dates Lena Suarez NP-C Primary Care Provider Active Start: October 28, 2024 End: October 28, 2024 Kaylie Ames NP-C Attending Provider Active Start: October 28, 2024 End: October 28, 2024 Kaylie M Rufener , EL TEACHER-C Referring Provider Active Start: October 28, 2024 End: October 28, 2024 Team Status: Inactive Member Role/Relationship Status Dates Lena Suarez EL TEACHER-C Primary Care Provider Active Start: December 09, 2024 End: December 09, 2024 Lena Suarez EL TEACHER-C Referring Provider Active St art: December 09, 2024 End: December 09, 2024 Kaylie Ames EL TEACHER-C Attending Provider Active Start: December 09, 2024 End: December 09, 2024 Team Status: Inactive Member Role/Relationship Status Dates Lena Suarez EL TEACHER-C Primary Care Provider Active Start: December 28, 2024 End: December 28, 2024 Lena Suarez , EL TEACHER-C Referring Provider Active St art: December 28, 2024 End: December 28, 2024 Dr. Donald Park MD Attending Provider Active S tart: December 28, 2024 End: December 28, 2024 Team Status: Active Member Role/Relationship Status Dates Dr. Donald Park MD Attending Provider Active S tart: January 02, 2025 Dr. Deshawn Torrez MD Primary Care Provider Active Start: January 02, 2025 Dr. Deshawn Torrez MD Family Provider Active Sta rt: January 02, 2025 Dr. Deshawn Torrez MD Referring Provider Active Start: January 02, 2025 Team Status: Inactive Member Role/Relationship Status Dates eLna Suarez EL TEACHER-C Primary Care Provider Active Start: January 11, 2025 End: January 11, 2025 Lena Suarez EL TEACHER-C Referring Provider Active St art: January 11, 2025 End: January 11, 2025 Dr. Donald Park MD Attending Provider Active S tart: January 11, 2025 End: January 11, 2025 Team Status: Inactive Member Role/Relationship Status Dates Lena Suarez EL TEACHER-C Primary Care Provider Active Start: January 11, 2025 End: January 11, 2025 Lena Suarez EL TEACHER-C Referring Provider Active St art: January 11, 2025 End: January 11, 2025 Dr. Donald Park MD Attending Provider Active S tart: January 11, 2025 End: January 11, 2025 Team Status: Active Member Role/Relationship Status Dates Dr. Donald Park MD Attending Provider Active S tart: January 23, 2025 Dr. Deshawn Torrez MD Primary Care Provider Active Start: January 23, 2025 Dr. Deshawn Torrez MD Family Provider Active Sta rt: January 23, 2025 Dr. Deshawn Torrez MD Referring Provider Active Start: January 23, 2025 Team Status: Inactive Member Role/Relationship Status Dates Lena Suarez , EL TEACHER-C Primary Care Provider Active Start: January 24, 2025 End: January 24, 2025 Lena Suarez EL TEACHER-C Referring Provider Active St art: January 24, 2025 End: January 24, 2025 Kaylie Ames , EL TEACHER-C Attending Provider Active Start: January 24, 2025 End: January 24, 2025 Team Status: Inactive Member Role/Relationship Status Dates Lena Suarez EL TEACHER-C Primary Care Provider Active Start: January 30, 2025 End: January 30, 2025 Kaylie Ames , EL TEACHER-C Attending Provider Active Start: January 30, 2025 End: January 30, 2025 Kaylie Ames EL TEACHER-C Referring Provider Active Start: January 30, 2025 End: January 30, 2025 Team Status: Inactive Member Role/Relationship Status Dates Lena Suarez EL TEACHER-C Primary Care Provider Active Start: February 03, 2025 End: February 03, 2025 Kaylie Ames EL TEACHER-C Attending Provider Active Start: February 03, 2025 End: February 03, 2025 Kaylie Ames , EL TEACHER-C Referring Provider Active Start: February 03, 2025 End: February 03, 2025 Team Status: Active Member Role/Relationship Status Dates Lena Suarez EL TEACHER-C Primary Care Provider Active Start: February 09, 2025 Kaylie Ames , EL TEACHER-C Referring Provider Active Start: February 09, 2025 Kaylie Ames EL TEACHER-C Other Provider Active St art: February 09, 2025 Dr. Phuc Vega DO Attending Provider Active S tart: February 09, 2025 Team Status: Active Member Role/Relationship Status Dates Lena Suarez , EL TEACHER-C Primary Care Provider Active Start: February 17, 2025 Dr. Sourav Finn MD Attending Provider Active Start: February 17, 2025 Dr. Sourav Finn MD Referring Provider Active Start: February 17, 2025 Team Status: Inactive Member Role/Relationship Status Dates Lena Suarez , EL TEACHER-C Primary Care Provider Active Start: February 17, 2025 End: February 17, 2025 Lena Suarez , EL TEACHER-C Referring Provider Active St art: February 17, 2025 End: February 17, 2025 Kaylie Ames NP-C Attending Provider Active Start: February 17, 2025 End: February 17, 2025 Team Status: Inactive Member Role/Relationship Status Dates Lena Suarez EL TEACHER-C Primary Care Provider Active Start: February 17, 2025 End: February 17, 2025 Dr. Sourav Finn MD Attending Provider Active Start: February 17, 2025 End: February 17, 2025 Dr. Sourav Finn MD Referring Provider Active Start: February 17, 2025 End: February 17, 2025 Team Status: Inactive Member Role/Relationship Status Dates Lena Suarez , EL TEACHER-C Primary Care Provider Active Start: December 09, 2024 End: December 09, 2024 Lena Suarez EL TEACHER-C Referring Provider Active St art: December 09, 2024 End: December 09, 2024 Kaylie Ames NP-C Attending Provider Active Start: December 09, 2024 End: December 09, 2024 Team Status: Inactive Member Role/Relationship Status Dates Lena Suarez , EL TEACHER-C Primary Care Provider Active Start: December 28, 2024 End: December 28, 2024 Lena Suarez , EL TEACHER-C Referring Provider Active St art: December 28, 2024 End: December 28, 2024 Dr. Donald Park MD Attending Provider Active S tart: December 28, 2024 End: December 28, 2024 Team Status: Inactive Member Role/Relationship Status Dates Lena Suarez , EL TEACHER-C Primary Care Provider Active Start: January 11, 2025 End: January 11, 2025 Lena Suarez , EL TEACHER-C Referring Provider Active St art: January 11, 2025 End: January 11, 2025 Dr. Donald Park MD Attending Provider Active S tart: January 11, 2025 End: January 11, 2025 Team Status: Active Member Role/Relationship Status Dates Dr. Donald Park MD Attending Provider Active S tart: January 23, 2025 Dr. Deshawn Torrez MD Primary Care Provider Active Start: January 23, 2025 Dr. Deshawn Torrez MD Family Provider Active Sta rt: January 23, 2025 Dr. Deshawn Torrez MD Referring Provider Active Start: January 23, 2025 Team Status: Inactive Member Role/Relationship Status Dates Lena Suarez , EL TEACHER-C Primary Care Provider Active Start: January 24, 2025 End: January 24, 2025 Lena Suarez EL TEACHER-C Referring Provider Active St art: January 24, 2025 End: January 24, 2025 Kaylie Ames EL TEACHER-C Attending Provider Active Start: January 24, 2025 End: January 24, 2025 Team Status: Inactive Member Role/Relationship Status Dates Lena Suarez EL TEACHER-C Primary Care Provider Active Start: January 30, 2025 End: January 30, 2025 Kaylie Ames EL TEACHER-C Attending Provider Active Start: January 30, 2025 End: January 30, 2025 Kaylie Ames EL TEACHER-C Referring Provider Active Start: January 30, 2025 End: January 30, 2025 Team Status: Inactive Member Role/Relationship Status Dates Lena Suarez EL TEACHER-C Primary Care Provider Active Start: February 03, 2025 End: February 03, 2025 Kaylie Ames EL TEACHER-C Attending Provider Active Start: February 03, 2025 End: February 03, 2025 Kaylie Ames EL TEACHER-C Referring Provider Active Start: February 03, 2025 End: February 03, 2025 Team Status: Active Member Role/Relationship Status Dates Lena Suarez EL TEACHER-C Primary Care Provider Active Start: February 09, 2025 Kaylie Ames EL TEACHER-C Referring Provider Active Start: February 09, 2025 Kaylie Aems EL TEACHER-C Other Provider Active St art: February 09, 2025 Dr. Phuc Vega DO Attending Provider Active S tart: February 09, 2025 Team Status: Inactive Member Role/Relationship Status Dates Lena Suarez EL TEACHER-C Primary Care Provider Active Start: February 17, 2025 End: February 17, 2025 Dr. Sourav Finn MD Attending Provider Active Start: February 17, 2025 End: February 17, 2025 Dr. Sourav Finn MD Referring Provider Active Start: February 17, 2025 End: February 17, 2025 Team Status: Inactive Member Role/Relationship Status Dates Lena Suarez , EL TEACHER-C Primary Care Provider Active Start: February 17, 2025 End: February 17, 2025 Lenadwight Suarez , EL TEACHER-C Referring Provider Active St art: February 17, 2025 End: February 17, 2025 Kaylie Ames EL TEACHER-C Attending Provider Active Start: February 17, 2025 End: February 17, 2025 Team Status: Inactive Member Role/Relationship Status Dates Lenadwight Suarez , EL TEACHER-C Primary Care Provider Active Start: March 02, 2025 End: March 02, 2025 Lenadwight Suarez , EL TEACHER-C Referring Provider Active St art: March 02, 2025 End: March 02, 2025 LILLI Romero Attending Provider Active Start: March 02, 2025 End: March 02, 2025 Team Status: Active Member Role/Relationship Status Dates Lena Suarez , EL TEACHER-C Primary care physician Active Team Status: Inactive Member Role/Relationship Status Dates Lena Suarez , EL TEACHER-C Primary care physician Active Start: December 28, 2024 End: December 28, 2024 Lena Suarez , EL TEACHER-C Referring Provider Active St art: December 28, 2024 End: December 28, 2024 Dr. Donald Park MD Attending physician Active Start: December 28, 2024 End: December 28, 2024 Team Status: Inactive Member Role/Relationship Status Dates Lena Suarez , EL TEACHER-C Primary care physician Active Start: January 11, 2025 End: January 11, 2025 Lena Suarez , EL TEACHER-C Referring Provider Active St art: January 11, 2025 End: January 11, 2025 Dr. Donald Park MD Attending physician Active Start: January 11, 2025 End: January 11, 2025 Team Status: Inactive Member Role/Relationship Status Dates Lena Suarez , EL TEACHER-C Primary care physician Active Start: January 24, 2025 End: January 24, 2025 Lenadwight Suarez , EL TEACHER-C Referring Provider Active St art: January 24, 2025 End: January 24, 2025 Kaylie Ames EL TEACHER-C Attending physician Active Start: January 24, 2025 End: January 24, 2025 Team Status: Inactive Member Role/Relationship Status Dates Lena Erick , EL TEACHER-C Primary care physician Active Start: January 30, 2025 End: January 30, 2025 Kaylie Ames NP-C Attending physician Active Start: January 30, 2025 End: January 30, 2025 Kaylie Ames EL TEACHER-C Referring Provider Active Start: January 30, 2025 End: January 30, 2025 Team Status: Inactive Member Role/Relationship Status Dates Lena Suarez EL TEACHER-C Primary care physician Active Start: February 03, 2025 End: February 03, 2025 Kaylie Ames NP-C Attending physician Active Start: February 03, 2025 End: February 03, 2025 Kaylie Ames EL TEACHER-C Referring Provider Active Start: February 03, 2025 End: February 03, 2025 Team Status: Active Member Role/Relationship Status Dates Lena Suarez EL TEACHER-C Primary care physician Active Start: February 09, 2025 Kaylie Ames EL TEACHER-C Referring Provider Active Start: February 09, 2025 Kaylie Ames EL TEACHER-C Nurse Practitioner Active Start: February 09, 2025 Dr. Phuc Vega DO Attending physician Active Start: February 09, 2025 Team Status: Inactive Member Role/Relationship Status Dates Lena Suarez NP-C Primary care physician Active Start: February 17, 2025 End: February 17, 2025 Dr. Sourav Finn MD Attending physician Active Start: February 17, 2025 End: February 17, 2025 Dr. Sourav Finn MD Referring Provider Active Start: February 17, 2025 End: February 17, 2025 Team Status: Inactive Member Role/Relationship Status Dates Lena Suarez EL TEACHER-C Primary care physician Active Start: February 17, 2025 End: February 17, 2025 Lena Suarez NP-C Referring Provider Active St art: February 17, 2025 End: February 17, 2025 Kaylie Ames NP-C Attending physician Active Start: February 17, 2025 End: February 17, 2025 Team Status: Inactive Member Role/Relationship Status Dates Lena Suarez EL TEACHER-C Primary care physician Active Start: March 02, 2025 End: March 02, 2025 Lena Suarez EL TEACHER-C Referring Provider Active St art: March 02, 2025 End: March 02, 2025 LILLI Romero Attending physician Active Start: March 02, 2025 End: March 02, 2025 Team Status: Active Member Role/Relationship Status Dates Dr. Donald Park MD Attending physician Active Start: March 29, 2025 Dr. Deshawn Torrez MD Primary care physician Active Start: March 29, 2025 Dr. Deshawn Torrez MD Referring Provider Active Start: March 29, 2025 Team Status: Inactive Member Role/Relationship Status Dates LARRY Garcia Primary care physician Active Start: April 05, 2025 End: April 05, 2025 LILLI Romero Attending physician Active Start: April 05, 2025 End: April 05, 2025 LILLI Romero Referring Provider Active Start: April 05, 2025 End: April 05, 2025 Team Status: Inactive Member Role/Relationship Status Dates LARRY Garcia Primary care physician Active Start: April 05, 2025 End: April 05, 2025 LARRY Garcia Referring Provider Active St art: April 05, 2025 End: April 05, 2025 Dr. Donald Park MD Attending physician Active Start: April 05, 2025 End: April 05, 2025 INFORMATION SOURCE (unrecogn ized section and content) DATE CREATED AUTHOR 12/19/2021 [facility] DATE CREATED AUTHOR AUTHOR'S ORGANIZ ATION 04/28/2025 [facility] Goals (unrecognized section and content) Goals may be documented in a n alternate sectionGoals may be documented in an alternate sectionGoals may be documented in an alternate sectionGoals may be documented in an alternate sectionGoals may be documented in an alternate sectionGoals may be documented in an alternate sectionGoals may be documented in an alternate sectionGoals may be documented in an alternate sectionGoals may be documented in an alternate sectionGoals may be documented in an alternate sectionGoals may be documented in an alternate sectionGoals may be documented in an alternate sectionGoals may be documented in an alternate sectionGoals may be documented in an alternate sectionGoals may be documented in an alternate sectionGoals may be documented in an alternate sectionGoals may be documented in an alternate sectionGoals may be documented in an alternate sectionGoals may be documented in an alternate section FOR RECORDS PERTAINING TO PATIENTS WHO ARE [...] BE BASED ON THE PRIMARY CLINICAL RECORDS. [facility] [facility]. provides no warranty or guarantee of the accuracy or completeness of information in this document.
[2025-05-19] MEDS: Lactated Ringers 1,000 ML 15 ML IV (06:00)
--- NOTE | 2025-05-19 06:30 | COLBX_PTH ---
PATIENT: STEPHAN MILLER LOC: EN U#:[id number] AGE/SX: 74/F ROOM: RE05/19/[address]: Dr. Owen Thompson DO : 1950 BED: DIS: 05/19/2025 SPEC #: [id number] RECD: 05/19/25 09:43 STATUS: KAITLYNN REAster #: [id number] ERI: 05/19/25 06:[address]: Owen Thompson DEPT: SURGICAL PATHOLOGY RECD BY: Neville Walker ENTERED: 05/19/25 10:30 SP TYPE: COLON BX OTHR DR: Lena Suarez, PATROL DRIVER-C Tissues: A - Duodenum, NOS B - Transverse colon C - SPLENIC FLEXURE D - Sigmoid colon biopsy E - Rectosigmoid junction Procedures: Surgery Specimen Level IV HEADER OPERATION: Colonoscopy with polyp biopsy, polypectomy, hemostasis clip PRE-OP DIAGNOSIS: Iron deficiency anemia, low phosphate levels, diarrhea TISSUE SUBMITTED: A- Duodenum biopsy, B- Transverse colon polyp biopsy x2, C- Splenic flexure polyp, D- Sigmoid polyp, E- Recto-sigmoid polyp MICROSCOPIC DIAGNOSIS A. Small intestine, duodenum, biopsy: - Normal villous architecture with Rachel gland hyperplasia and gastric mucin cell metaplasia, suggestive of peptic injury. - Negative for increased intraepithelial lymphocytes. B. Colon, transverse, polypectomy: - Tubular adenoma, multiple fragments. C. Colon, splenic flexure, polypectomy: - Tubular adenoma. D. Colon, sigmoid, polypectomy: - Tubulovillous adenoma, multiple fragments. E. Colon, recto-sigmoid, polypectomy: - Tubulovillous adenoma. MICROSCOPIC DESCRIPTION Slides are reviewed. GROSS DESCRIPTION A. Received in fixative is one container labeled with the patient's name and designated Duodenum biopsy. The specimen consists of two irregular fragments of [place] tissue that measure 0.3 and 0.5 cm. The specimen is totally submitted in one cassette. B. Received in fixative is one container labeled with the patient's name and designated Transverse colon polyp biopsy. The specimen consists of three irregular fragments of [place] tissue that measure 0.4 to 0.6 cm. The specimen is totally submitted in one cassette. C. Received in fixative is one container labeled with the patient's name and designated Splenic flexure polyp. The specimen consists of multiple irregular fragments of [place] tissue that in aggregate measure 1.1 x 0.6 x 0.2 cm. The specimen is totally submitted in one cassette. D. Received in fixative is one container labeled with the patient's name and designated Sigmoid polyp. The specimen consists of multiple irregular fragments of [place] tissue that in aggregate measure 1.6 x 0.7 x 0.2 cm. The specimen is totally submitted in one cassette. E. Received in fixative is one container labeled with the patient's name and designated Recto-sigmoid polyp. The specimen consists of a 1.3 x 1.3 x 0.7 cm red and granular polypoid tissue fragment. The presumed resection margin is inked black and the specimen is serially sectioned. Entirely submitted in 1 cassette. [place] 05/19/2025 CPT:31280c6
--- NOTE | 2025-05-19 06:38 | PRE.ANES_ITS ---
ASA Classification* ASA Classification ASA Classification: 3 Assessment & Plan Anesthesia* Anesthesia Assessment Anesthesia Assessment: Discussed sedation and/or anesthesia options, risks, benefits, and alternatives with patient/parents/legal guardian/POA. Questions invited. The patient/parents/legal guardian/POA seems to understand and agrees to proceed with anesthesia plan. Reviewed the physical assessment, medical history, allergy history and patient home medications list prior to surgery/procedure/anesthetic and documented any changes. Performed airway and anesthesia risk assessments. Anesthesia Type Anesthesia Type: MAC Anesthesia Focused Assessment* Temperature: 97.7 F Pulse Rate: 87 Blood Pressure: 157/78 Respiratory Rate: 16 Pulse Ox: 100 Oxygen Flow Rate (L/min): 3 Airway Assessment Mouth opens: >3 cm Mallampati Score: II Labs Anesthesia Preop lab: CBC WBC, (4.4-11.0) 17.0 K/mm3 H 04/26/25, 14:39 RBC, (4.2-5.4) 3.10 M/mm3 L 04/26/25, 14:39 Hgb, (12.0-15.0) 9.3 g/dL L 04/26/25, 14:39 Hct, (37-47) 30.9 % L 04/26/25, 14:39 Plt Count, (150-450) 494 K/mm3 H 04/26/25, 14:39 CHEMISTRY Potassium, (3.3-5.1) 3.3 mmol/L 04/26/25, 14:39 Sodium, (133-145) 143 mmol/L 04/26/25, 14:39 Magnesium, (1.5-2.2) 2.1 mg/dL 03/29/25, 11:42 Phosphorus, (2.7-4.5) 1.5 mg/dL L 03/29/25, 11:42 BUN, (4-19) 16 mg/dL 04/26/25, 14:39 Creatinine, (0.70-1.20) 0.49 mg/dL L 04/26/25, 14:39 Glucose, (70-99) 134 mg/dL H 04/26/25, 14:39 POC Glucose, (70-110) 134 mg/dL H 12/19/16, 03:16 TSH, (0.358-3.74) 0.63 uIU/mL 07/26/14, 10:01 COAG PT, (11.7-14.9) 13.8 SECONDS 04/15/17, 15:47 Pre-Assessment Diagnosis/Proposed Procedure Planned Operative Procedure(s): EGD,CSCOPE Anesthesia History Anesthesia History - caustic room attendant: Anesthesia History - caustic room attendant Hx Hospitalization No 05/16/25 12:38 Any Problems With Anesthesia No 05/16/25 12:38 Cholinesterase deficiency No 05/16/25 12:38 You/Your Family Experience No 05/16/25 12:38 fever (hyperthermia) with Relationship Recent Exposure to Contagious No 05/19/25 06:01 Disease Does patient have nerve No 05/16/25 12:38 stimulator Patient instructed to have device shut off --Does patient have Pacemaker No 05/19/25 06:01 or ICD? When Was Last Pacemaker Check QUESTION #4 FULL TEXT: You/Your Family Experience fever (hyperthermia) with Anesthesia Last Oral Intake Last Oral intake: Last Oral Intake NPO since 02:00 05/19/25 06:01 Meds taken in AM with sips of Yes 05/19/25 06:01 water? Meds patient instructed to tylenol 05/19/25 06:01 take am of surgery PONV PONV - caustic room attendant: PONV - caustic room attendant Female Yes 05/16/25 12:38 HX of Motion Sickness No 05/16/25 12:38 HX of N/V After Surgery No 05/16/25 12:38 Non-Smoker No 05/16/25 12:38 Duration of Surgery greater No 05/16/25 12:38 than 60 minutes Number of Risk Factors 1 05/16/25 12:38 PONV Score Low Risk 05/16/25 12:38 Height & Weight Height & Weight: Anesthesia: Height & Weight Height 5 ft 3 in 05/19/25 06:01 Weight: 33 kg 05/19/25 06:01 Body Mass Index (BMI) 12.9 05/19/25 06:01 Respiratory Assessment Respiratory Assessment - caustic room attendant: Respiratory Tract Infection Hx - caustic room attendant Hx Respiratory Tract Infection No 05/16/25 12:38 STOP Sleep Apnea STOP Sleep Apnea - caustic room attendant: STOP Sleep Apnea - caustic room attendant Hx Hypertension No 05/16/25 12:38 Hx Sleep Apnea No 05/16/25 12:38 CPAP No 08/09/18 06:33 BIPAP Do you snore loudly (louder Yes 05/16/25 12:38 than talking or can be heard Do you often feel tired/ Yes 05/16/25 12:38 fatigued/ sleepy during daytime? Has anyone observed you stop No 05/16/25 12:38 breathing during sleep? STOP Results Positive 05/16/25 12:38 QUESTION #5 FULL TEXT : Do you snore loudly (louder than talking or can be heard through closed doors)? Tobacco Use History Tobacco Use History - caustic room attendant: Tobacco Use History - caustic room attendant Tobacco Use Smoking Status Former smoker 05/16/25 12:38 Hx Tobacco Use Yes 05/16/25 12:38 Years Smoking Packs Smoked per Day Smoking Cessation Date was Yes - quit smoking within 15 05/16/25 12:38 within the last 15 years years Hx Smoking Cessation Date 01/20/25 05/16/25 12:38 Hx Smoking Cessation Yes 05/16/25 12:38 Counseling Hematologic Medial History Hematologic Hx - caustic room attendant: Hematologic Medical Hx - dulite machine bluer Hx of Blood Transfusion No 05/16/25 12:38 Hx of Transfusion in last 3 No 05/16/25 12:38 Months Date of Last Transfusion (if within last 3 months) Ever experience any problems No 05/16/25 12:38 with transfusion(s)? Specify any problems Hx of Preganancy in last 3 No 05/16/25 12:38 Months Nurse Filling Out Transfusion DSCHRIBER 05/16/25 12:38 & Questions: Date: 05/16/25 05/16/25 12:38 Time: 12:40 05/16/25 12:38 Patient unable to answer at this time (ie. confused, unrespo /Reproduction History /Reproductive History - caustic room attendant: /Reproductive Hx- caustic room attendant Hx Now No 05/16/25 12:38 Gestational Age (in weeks): EDC: Hx Hx Para Hx Section SAB No 05/16/25 12:38 Does the father of the baby or his family experience fever w Father of the baby Malignant Hypertension history comment Active Medications Active Medications: Current Medications Generic Name Dose Route Start Last Admin Trade Name Freq PRN Reason Stop Dose Admin Lactated Ringer's 1,000 mls @ 15 mls/hr 05/19/25 06:00 05/19/25 06:00 IV 15 mls/hr .Q48H BLAISE Administration PFSH Medical History Wears glasses Wears dentures Post-menopausal Cancer Depression Anxiety History of steroid therapy Low iron Easy bruising Back pain Abdominal bloating Emphysema, unspecified On home oxygen therapy Restless legs Former smoker Shortness of breath on exertion History of pain when walking History of edema History of stress test Pleurisy Collapsed lung VATS bullectomy/doxy peurodesis (left) Port placement Osteoporosis COPD (chronic obstructive pulmonary disease) Home Medications ?Medication ?Instructions ?Recorded ?Last Taken ?Type lorazepam 0.5 mg tablet 0.5 mg PO 1000 dyspnea 10/0605/18/25 History albuterol sulfate 90 mcg/actuation 2 puff inhalation Q 4H PRN 11/01/24 Unknown Rx aerosol inhaler (Ventolin HFA) shortness of breath or wheezing #18 grams prednisone 10 mg tablet 10 mg PO QDAY #90 tabs 11/0105/18/25 Rx azithromycin 250 mg tablet 250 mg PO QMWF #12 tabs 11/1305/17/25 Rx ipratropium bromide 0.02 % 1.25 ml inhalation Q6-8H NJ N 01/24/25 Unknown Rx solution for inhalation shortness of breath or wheez ing #150 mL budesonide 160 mcg-glycopyr 9 2 inh inhalation BID #10 .7 grams 02/07/25 05/18/25 Rx mcg-formot 4.8 mcg/actuation HFA inhaler (Breztri Aerosphere) albuterol sulfate 2.5 mg/3 mL 2.5 mg (3 mL) inhalation Q4H PRN 03/06/25 Unknown Rx (0.083 %) solution for nebulization Sob &/Or Wheezing #180 mL roflumilast 500 mcg tablet 500 mcg PO DAILY 05/16/25 1 07/18/24 History voriconazole 200 mg tablet 200 mg PO BID 05/16/25 11/01/13 History acetaminophen 325 mg capsule 650 mg PO Q4H PRN pain 05/19/25 History Allergy/AdvReac Type Severity Reaction Status Date / Time No Known Allergies Allergy Verified 05/19/25 05:43 Family History Mother Hypoglycemia Neuropathy Thyroid disorder Hypertension Heart disease Diverticulitis Father COPD (chronic obstructive pulmonary disease) Surgical History History of hysteroscopy Hx of colonoscopy Hx of right cataract extraction Hx of left cataract extraction History of exploratory laparotomy History of bilateral mastectomy History of breast biopsy Social History Smoking Status: Former smoker alcohol intake: never substance use type: does not use Review of Systems (Anesthesia) ROS Narrative System reviewed and no additional complaints, except as documented.
--- NOTE | 2025-05-19 06:40 | PCM.HP.STD ---
HPI - General General Date of Admission: 05/19/25 Date of Service: 05/19/25 Chief Complaint: LULA HPI Narrative STEPHAN MILLER, is a 74 F who presents [Chief Complaint: Anemia . Patient with a past medical history pertinent for breast cancer, aspergillosis, tobacco use, COPD, JASIEL and severe protein energy malnutrition. Patient here today after referral from hematology/oncology for a positive fecal occult stool test. Patient also with anemia over the past year. She has had 1 iron transfusion. Patient denies seeing any blood in her stool or black or tarry stools. She has normal brown formed bowel movements. Patient does still smoke 4 to 8 cigarettes/day. She is currently on 3-5 L of oxygen when not at home and has a concentrator at home. Last colonoscopy was over 10 years ago. [facility] Medical History Wears glasses Wears dentures Post-menopausal Cancer Depression Anxiety History of steroid therapy Low iron Easy bruising Back pain Abdominal bloating Emphysema, unspecified On home oxygen therapy Restless legs Former smoker Shortness of breath on exertion History of pain when walking History of edema History of stress test Pleurisy Collapsed lung VATS bullectomy/doxy peurodesis (left) Port placement Osteoporosis COPD (chronic obstructive pulmonary disease) Home Medications ?Medication ?Instructions ?Recorded ?Last Taken ?Type lorazepam 0.5 mg tablet 0.5 mg PO 1000 dyspnea 10/07/23 05/18/25 History albuterol sulfate 90 mcg/actuation 2 puff inhalation Q4H PRN 11/01/24 Unknown Rx aerosol inhaler (Ventolin HFA) shortness of breath or wheezing #18 grams prednisone 10 mg tablet 10 mg PO QDAY #90 tabs 11/01/24 05/18/25 Rx azithromycin 250 mg tablet 250 mg PO QMWF #12 tabs 01/24/25 05/17/25 Rx ipratropium bromide 0.02 % 1.25 ml inhalation Q6-8H PRN 01/24/25 Unknown Rx solution for inhalation shortness of breath or wheezing #150 mL budesonide 160 mcg-glycopyr 9 2 inh inhalation BID #10.7 grams 02/07/25 05/18/25 Rx mcg-formot 4.8 mcg/actuation HFA inhaler (Breztri Aerosphere) albuterol sulfate 2.5 mg/3 mL 2.5 mg (3 mL) inhalation Q4H PRN 03/06/25 Unknown Rx (0.083 %) solution for nebulization Sob &/Or Wheezing #180 mL roflumilast 500 mcg tablet 500 mcg PO DAILY 05/16/25 05/18/25 History voriconazole 200 mg tablet 200 mg PO BID 05/16/25 05/18/25 History acetaminophen 325 mg capsule 650 mg PO Q4H PRN pain 05/19/25 05/19/25 History Allergy/AdvReac Type Severity Reaction Status Date / Time No Known Allergies Allergy Verified 05/19/25 05:43 Family History Mother Hypoglycemia Neuropathy Thyroid disorder Hypertension Heart disease Diverticulitis Father COPD (chronic obstructive pulmonary disease) Surgical History History of hysteroscopy Hx of colonoscopy Hx of right cataract extraction Hx of left cataract extraction History of exploratory laparotomy History of bilateral mastectomy History of breast biopsy Social History Smoking Status: Former smoker alcohol intake: never substance use type: does not use ROS Constitutional Constitutional: Denies fatigue, fever(s), poor appetite, weight gain or weight loss Gastrointestinal Gastrointestinal: Denies belching, bloating, change in bowel habits, change in stool character, chewing difficulty, coffee ground emesis, constipation, cramping, diarrhea, dyspepsia, dysphagia, early satiety, excessive flatus, fecal incontinence, heartburn, hematemesis, hematochezia, hemorrhoids, loose stools, melena, nausea, odynophagia, rectal bleeding, tenesmus, vomiting or weight changes Vital Signs Vital Signs Vital Signs: 05/19/25 06:01 05/19/25 06:01 05/19/25 06:38 Temperature 97.7 F L 97.7 F L Temperature Source Temporal Pulse Rate 87 87 Respiratory Rate 16 16 Respiratory Pattern Normal Blood Pressure 157/78 H 157/78 H Blood Pressure Mean 104 Blood Pressure Source Monitor Blood Pressure Position Semi-Fowlers Blood Pressure Location Left Arm Pulse Ox 100 100 Oxygen Delivery Method Nasal Cannula Oxygen Flow Rate (L/min) 3 3 Weight Weight: 72 lb 12.041 oz Body Mass Index (BMI) 12.9 Physical Exam Const alert, oriented x3, no apparent distress and healthy appearing General Appearance: cooperative GI normal to inspection, nondistended, normoactive bowel sounds, soft to palpation, non-tender and non-distended Percussion: normal to percussion Rectal Exam: deferred Assessment & Plan Assessment/Plan (1) Iron deficiency anemia: QUALIFIERS: Iron deficiency anemia type: chronic blood loss Qualified Code(s): D50.0 - Iron deficiency anemia secondary to blood loss (chronic) (2) Low phosphate levels: (3) Diarrhea: PLAN: Assessment and Plan Assessment and Plan (1) Iron deficiency anemia: Status: Acute Qualifiers: Iron deficiency anemia type: chronic blood loss Qualified Code(s): D50.0 - Iron deficiency anemia secondary to blood loss (chronic) Plan: Stephan is a 74-year-old female patient with past medical history of stage IV severe COPD, aspergillosis, breast cancer and iron deficiency anemia referred to GI office for evaluation of fecal occult blood test positive. Per chart review patient has been anemic since June 2024 but has had intermittent anemia since 2017. Patient denies any blood in her stool or black or tarry looking stool. She has had 1 iron transfusion and her hemoglobin most recently was 11.7. Patient seen by pulmonary at the end of January and palliative care was recommended. 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 Will start her on pantoprazole 40 mg and order upper GI imaging. Will continue to monitor her hemoglobin and if it continues to downtrend we will reassess at that time. She was advised to contact her office if she has any black/tarry stool, increasing fatigue, lightheadedness, or dizziness. - No recommendation for endoscopy at this time due to severe comorbidities - Monitor hemoglobin - Start PPI - Upper GI - Follow-up Orders: Orders Upper GI Dual Contrast Today D50.0 - Iron deficiency anemia secondary to blood loss (chronic) Medications: New pantoprazole 40 mg PO QDAY 30 tabs 2RF ]
[2025-05-19] MEDS: Lidocaine 1% (5 ml sdv) 5 ML Vial 3 ML IV (06:47)
--- NOTE | 2025-05-19 07:41 | PCM.POST.ANE ---
Anesthesia: Postop Eval I Current Vital Signs Temperature: 97 F Pulse Rate: 82 Blood Pressure: 125/66 Respiratory Rate: 16 Pulse Ox: 100 Oxygen Delivery Method: Room Air Assessment Airway patent: Yes Spontaneous unlabored respirations: Yes Mental status: Awake and Calm nausea: No Vomiting: No Anesthesia Complication: No Fluid Hydration Crystalloid volume administer (ml): 900 Total IV fluid infused: 900 Progress Note Anesthesia document: Postop Eval 1 completed: Yes
--- NOTE | 2025-05-19 07:44 | OP.EGD_ITS ---
Patient Name: Ashlee Bañuelos Procedure Date: 05/19/2025 6:39 AM Date of : 1950 Age: 74 Procedure: Upper GI endoscopy Indications: Iron deficiency anemia Providers: Owen Thompson DO Referring MD: Meera Garcia Medicines: Monitored Anesthesia Care Patient Profile: This is a 74 year old female. Refer to note in patient chart for documentation of history and physical. Patient has symptoms. Complications: No immediate complications. Procedure: Pre-Anesthesia Assessment: - Prior to the procedure, a History and Physical was performed, and patient medications and allergies were reviewed. The patient is competent. The risks and benefits of the procedure and the sedation options and risks were discussed with the patient. All questions were answered and informed consent was obtained. Patient identification and proposed procedure were verified by the physician in the pre-procedure area. Mental Status Examination: alert and oriented. CV Examination: normal. Prophylactic Antibiotics: The patient does not require prophylactic antibiotics. Prior Anticoagulants: The patient has taken no anticoagulant or antiplatelet agents except for NSAID medication. ASA Grade Assessment: III - A patient with severe systemic disease. After reviewing the risks and benefits, the patient was deemed in satisfactory condition to undergo the procedure. The anesthesia plan was to use monitored anesthesia care (MAC). Immediately prior to administration of medications, the patient was re-assessed for adequacy to receive sedatives. The heart rate, respiratory rate, oxygen saturations, blood pressure, adequacy of pulmonary ventilation, and response to care were monitored throughout the procedure. The physical status of the patient was re-assessed after the procedure. After obtaining informed consent, the endoscope was passed under direct vision. Throughout the procedure, the patient's blood pressure, pulse, and oxygen saturations were monitored continuously. The Colonoscope was introduced through the mouth, and advanced to the fourth part of the duodenum. Small bowel enteroscopy was deemed necessary. The upper GI endoscopy was accomplished without difficulty. The patient tolerated the procedure well. Scope In: 6:52:40 AM Scope Out: 6:57:15 AM Total Procedure Duration Time 0 hours 4 minutes 35 seconds Findings: No gross lesions were noted in the entire esophagus. A hiatal hernia was present. A single 5 mm angiodysplastic lesion with bleeding was found in the gastric body. Coagulation for hemostasis using heater probe was successful. Estimated blood loss was minimal. Patchy granular mucosa was found in the entire duodenum. Biopsies were taken with a cold forceps for histology. Verification of patient identification for the specimen was done. Estimated blood loss was minimal. Impression: - No gross lesions in the entire esophagus. - Hiatal hernia. - A single bleeding angiodysplastic lesion in the stomach. Treated with a heater probe. - Granular mucosa in the entire examined duodenum. Biopsied. Recommendation: - Discharge patient to home. - Resume previous diet. - Continue present medications. - Await pathology results. Procedure Code(s): --- Professional --- 70678, 59, Small intestinal endoscopy, enteroscopy beyond second portion of duodenum, not including ileum; with control of bleeding (eg, injection, bipolar cautery, unipolar cautery, laser, heater probe, stapler, plasma electrical assistant) 46568, 51, Small intestinal endoscopy, enteroscopy beyond second portion of duodenum, not including ileum; with biopsy, single or multiple CPT copyright 2021 [employer]. All rights reserved. The codes documented in this report are preliminary and upon vmware architect review may be revised to meet current compliance requirements. Owen Thompson DO 05/19/2025 7:43:04 AM This report has been signed electronically. Number of Addenda: 0 Note Initiated On: 05/19/2025 6:39 AM
--- NOTE | 2025-05-19 07:44 | OP.PROVAT_ITS ---
05/19/2025 Meera Garcia Re : Upper GI endoscopy procedure for Ashlee Hensonr Erick This procedure was performed on Monday, May 19, 2025. My impressions and recommendations are as follows: Impressions : - No gross lesions in the entire esophagus. - Hiatal hernia. - A single bleeding angiodysplastic lesion in the stomach. Treated with a heater probe. - Granular mucosa in the entire examined duodenum. Biopsied. Recommendations : - Discharge patient to home. - Resume previous diet. - Continue present medications. - Await pathology results. My findings are described in the full procedure note, which is enclosed. If I can be of further assistance, please feel free to contact me at . Sincerely, Owen Thompson, 05/19/2025 7:43:04 AM This report has been signed electronically.
--- NOTE | 2025-05-19 07:48 | POSTOPAN2_ITS ---
Anesthesia Postop Eval I Sum Postop Eval Completion status Anesthesia document: Postop Eval 1 completed: Yes Anesthesia Postop Eval I Summary Anesthesia Postop Eval I Summary: Anesthesia Postop Eval I: Assessment Summary Airway patent Yes 05/19/25 07:42 CANTEEN OPERATOR.MDOT Spontaneous unlabored Yes 05/19/25 07:42 CANTEEN OPERATOR.MDOT respirations Mental status Awake,Calm 05/19/25 07:42 CANTEEN OPERATOR.MDOT nausea No 05/19/25 07:42 CANTEEN OPERATOR.MDOT Vomiting No 05/19/25 07:42 CANTEEN OPERATOR.MDOT Anesthesia Postop Eval I: Fluid Summary Crystalloid volume administer 900 05/19/25 07:42 CANTEEN OPERATOR.MDOT (ml) Colloids volume administered ( ml) Blood Product volume administered (ml) Total IV fluid infused 900 05/19/25 07:42 CANTEEN OPERATOR.MDOT Anesthesia Postop Eval I: Summary Notes Anesthesia Complication No 05/19/25 07:42 CANTEEN OPERATOR.MDOT Anesthesia Complication Comment: Post-operative progress note Anesthesia: Postop Eval II Evaluation Mental status: Awake and Calm Pain Level: 0 nausea: No Vomiting: No Complications Anesthesia Complication: No
--- NOTE | 2025-05-19 07:48 | PCM.POSTANE2 ---
Anesthesia Postop Eval I Sum Postop Eval Completion status Anesthesia document: Postop Eval 1 completed: Yes Anesthesia Postop Eval I Summary Anesthesia Postop Eval I Summary: Anesthesia Postop Eval I: Assessment Summary Airway patent Yes 05/19/25 07:42 MAKING LINE WORKER.MDOT Spontaneous unlabored Yes 05/19/25 07:42 MAKING LINE WORKER.MDOT respirations Mental status Awake,Calm 05/19/25 07:42 MAKING LINE WORKER.MDOT nausea No 05/19/25 07:42 MAKING LINE WORKER.MDOT Vomiting No 05/19/25 07:42 MAKING LINE WORKER.MDOT Anesthesia Postop Eval I: Fluid Summary Crystalloid volume administer 900 05/19/25 07:42 MAKING LINE WORKER.MDOT (ml) Colloids volume administered ( ml) Blood Product volume administered (ml) Total IV fluid infused 900 05/19/25 07:42 MAKING LINE WORKER.MDOT Anesthesia Postop Eval I: Summary Notes Anesthesia Complication No 05/19/25 07:42 MAKING LINE WORKER.MDOT Anesthesia Complication Comment: Post-operative progress note Anesthesia: Postop Eval II Evaluation Mental status: Awake and Calm Pain Level: 0 nausea: No Vomiting: No Complications Anesthesia Complication: No
--- NOTE | 2025-05-19 07:51 | OP.COLON_ITS ---
Patient Name: Ashlee Bañuelos Procedure Date: 05/19/2025 6:57 AM Date of : 1950 Age: 74 Procedure: Colonoscopy Indications: Iron deficiency anemia Providers: Owen Thompson DO Referring MD: Meera Garcia Medicines: Monitored Anesthesia Care Patient Profile: This is a 74 year old female. Refer to note in patient chart for documentation of history and physical. Patient has symptoms. Last Colonoscopy: none. The patient's first colonoscopy is today. Complications: No immediate complications. Procedure: Pre-Anesthesia Assessment: - Prior to the procedure, a History and Physical was performed, and patient medications and allergies were reviewed. The patient is competent. The risks and benefits of the procedure and the sedation options and risks were discussed with the patient. All questions were answered and informed consent was obtained. Patient identification and proposed procedure were verified by the physician in the pre-procedure area. Mental Status Examination: alert and oriented. CV Examination: normal. Prophylactic Antibiotics: The patient does not require prophylactic antibiotics. Prior Anticoagulants: The patient has taken no anticoagulant or antiplatelet agents except for NSAID medication. ASA Grade Assessment: III - A patient with severe systemic disease. After reviewing the risks and benefits, the patient was deemed in satisfactory condition to undergo the procedure. The anesthesia plan was to use monitored anesthesia care (MAC). Immediately prior to administration of medications, the patient was re-assessed for adequacy to receive sedatives. The heart rate, respiratory rate, oxygen saturations, blood pressure, adequacy of pulmonary ventilation, and response to care were monitored throughout the procedure. The physical status of the patient was re-assessed after the procedure. After I obtained informed consent, the scope was passed under direct vision. Throughout the procedure, the patient's blood pressure, pulse, and oxygen saturations were monitored continuously. The Colonoscope was introduced through the anus and advanced to the cecum, identified by appendiceal orifice and ileocecal valve. The colonoscopy was performed without difficulty. The patient tolerated the procedure well. The quality of the bowel preparation was adequate. The ileocecal valve, appendiceal orifice, and rectum were photographed. Scope In: 7:00:34 AM Scope Withdrawal Time 0 hours 29 minutes 47 seconds Scope Out: 7:38:55 AM Total Procedure Duration Time 0 hours 38 minutes 21 seconds Findings: The perianal and digital rectal examinations were normal. Three sessile polyps were found in the sigmoid colon, splenic flexure and transverse colon. The polyps were 15 mm in size. These polyps were removed with a hot snare. Resection and retrieval were complete. Verification of patient identification for the specimen was done. Estimated blood loss was minimal. To close a defect after polypectomy, one hemostatic clip was successfully placed. 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 There was no bleeding at the end of the procedure. Three small angioectasias without bleeding were found in the transverse colon and at the hepatic flexure. Coagulation for bleeding prevention using heater probe was successful. Estimated blood loss was minimal. A 7 mm polyp was found in the transverse colon. The polyp was sessile. The polyp was removed with a jumbo cold forceps. Resection and retrieval were complete. Verification of patient identification for the specimen was done. Estimated blood loss was minimal. Moderate rectal prolapse was present. Retroflexion in the rectum was not performed due to anatomy. Multiple small-mouthed diverticula were found in the recto-sigmoid colon and sigmoid colon. Impression: - Three 15 mm polyps in the sigmoid colon, at the splenic flexure and in the transverse colon, removed with a hot snare. Resected and retrieved. - Three non-bleeding colonic angioectasias. Treated with a heater probe. - One 7 mm polyp in the transverse colon, removed with a jumbo cold forceps. Resected and retrieved. Recommendation: - Repeat colonoscopy in 1 year for surveillance. - Continue present medications. Procedure Code(s): --- Professional --- 76951, 59, Colonoscopy, flexible; with control of bleeding, any method 73489, Colonoscopy, flexible; with removal of tumor(s), polyp(s), or other lesion(s) by snare technique 04915, 59, Colonoscopy, flexible; with biopsy, single or multiple CPT copyright 2021 [employer]. All rights reserved. The codes documented in this report are preliminary and upon shank maker review may be revised to meet current compliance requirements. Owen Thompson DO 05/19/2025 7:51:13 AM This report has been signed electronically. Number of Addenda: 0 Note Initiated On: 05/19/2025 6:57 AM
--- NOTE | 2025-05-19 07:51 | OP.PROVAT_ITS ---
05/19/2025 Meera Garcia Re : Colonoscopy procedure for Ashlee Hensonr Erick This procedure was performed on Monday, May 19, 2025. My impressions and recommendations are as follows: Impressions : - Three 15 mm polyps in the sigmoid colon, at the splenic flexure and in the transverse colon, removed with a hot snare. Resected and retrieved. - Three non-bleeding colonic angioectasias. Treated with a heater probe. - One 7 mm polyp in the transverse colon, removed with a jumbo cold forceps. Resected and retrieved. Recommendations : - Repeat colonoscopy in 1 year for surveillance. - Continue present medications. My findings are described in the full procedure note, which is enclosed. If I can be of further assistance, please feel free to contact me at . Sincerely, Owen Thompson, 05/19/2025 7:51:13 AM This report has been signed electronically.
== END 2025-05-19 08:33 | disposition home or self-care (01) ==
LOC: EN 05:28 → AC 05:31
PROVIDERS: PCP Nurse Practitioner Family; Referring Provider Nurse Practitioner Family; Visit Provider Internal Medicine Gastroenterology
PROC: 0DJD8ZZ Inspection of Lower Intestinal Tract, Via Natural or Artificial Opening Endoscopic (ICD-10-PCS; CPT 45378; principal; 2025-05-19 06:25)
DX: K31.811 Angiodysplasia of stomach and duodenum with bleeding (principal); J43.9 Emphysema, unspecified; D50.0 Iron deficiency anemia secondary to blood loss (chronic); F17.210 Nicotine dependence, cigarettes, uncomplicated; K44.9 Diaphragmatic hernia without obstruction or gangrene; K62.3 Rectal prolapse; K57.50 Diverticulosis of both small and large intestine without perforation or abscess without bleeding; K55.20 Angiodysplasia of colon without hemorrhage; K31.A0 Gastric intestinal metaplasia, unspecified; D12.3 Benign neoplasm of transverse colon; D12.5 Benign neoplasm of sigmoid colon; D12.7 Benign neoplasm of rectosigmoid junction; Z79.899 Other long term (current) drug therapy
CPT/HCPCS: 44366; 45380; 45385; 45382; 44361; 88305; C1889